=== PATIENT | male | born 1945 | race Caucasian/White ===

== ENCOUNTER 2016-05-24 17:47 | Emergency (ER) | payer MEDICARE, BC, OTHER ==
[2016-05-24] MEDS ORDERED: Ibuprofen TAB* 600 MG PO ONE ×2 (18:15→21:35)
--- NOTE | 2016-05-24 21:09 | RAD ---
HISTORY: Trauma, left knee pain COMPARISONS: None VIEWS: 2, frontal and crosstable lateral views of the left knee FINDINGS: BONE DENSITY: Normal. BONES: There is no displaced fracture. JOINTS: There is moderate tricompartmental osteoarthritis. There is a moderate suprapatellar joint effusion ALIGNMENT: There is no dislocation. SOFT TISSUES: Unremarkable. OTHER FINDINGS: None. IMPRESSION: OSTEOARTHRITIS. JOINT EFFUSION. NO ACUTE OSSEOUS INJURY. IF SYMPTOMS PERSIST, RECOMMEND REPEAT IMAGING.
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
[2016-05-24 21:56] VITALS: BP 142/76
== END 2016-05-24 22:21 | disposition home or self-care (01) ==
LOC: ED 17:47
DX: S80.02XA Contusion of left knee, initial encounter (principal); M25.562 Pain in left knee; M25.462 Effusion, left knee; T14.8 Other injury of unspecified body region; M25.512 Pain in left shoulder; E11.9 Type 2 diabetes mellitus without complications; Z85.828 Personal history of other malignant neoplasm of skin; R21 Rash and other nonspecific skin eruption; V28.4XXA Motorcycle driver injured in noncollision transport accident in traffic accident, initial encounter; Y92.9 Unspecified place or not applicable; M17.12 Unilateral primary osteoarthritis, left knee
CPT/HCPCS: 99282; A9270-GY

== ENCOUNTER 2018-04-03 19:41 | Emergency (ER) | payer MEDICARE, BC ==
--- NOTE | 2018-04-03 20:23 | ED ---
Lower Extremity - HPI Summary HPI Summary: The patient is a 72 y/o M presenting to [facility] with a chief complaint of mild bilateral pedal edema and a rash on his bilateral calves with gradual worsening over the last ten days. He states that he is an active individual who bikes at least 30 minutes a day, and he normally weighs around 195lbs; he noticed over the last week and half that he has gained 15lbs. He noticed that his feet have began to swell, but he hasn't had any change in his diet that would account for the weight gain. He reports that he often eats tuna sandwiches, but this is not new for him. He additionally c/o chills, and he had an episode of nausea a few days ago. He denies headaches, cough, rhinorrhea, SOB, changes in urination (he notes frequent urination but this is normal for him), or changes in BM. He spoke with his PCP who recommended that he come to the ED. He has hx of diabetes and hypercholesterolemia, which are currently being managed with medications. - History of Current Complaint Chief Complaint: EDRashSkinAbscess Stated Complaint: RASH/ LEG SWELLING Time Seen by Provider: 04/03/18 20:04 Hx Obtained From: Patient Mechanism Of Injury: Unknown Onset of Pain: Days - ten Onset/Duration: Days - ten Severity Initially: Mild Severity Currently: Mild Pain Intensity: 0 Pain Scale Used: 0-10 Numeric Timing: Lasting Days Location: Is Discrete @ - bilateral feel and calves Associated Signs And Symptoms: Positive: Swelling, Other - POSITIVE: sudden weight gain of 15lbs, chills; NEGATIVE: headaches, cough, rhinorrhea, SOB, changes in urination, changes in BM Aggravating Factor(s): Nothing Alleviating Factor(s): Nothing Able to Bear Weight: Yes - Allergies/Home Medications Allergies/Adverse Reactions: Allergies Allergy/AdvReac Type Severity Reaction Status Date / Time No Known Allergies Allergy Verified 04/03/18 19:51 PMH/Surg Hx/FS Hx/Imm Hx Endocrine/Hematology History: Reports: Hx Diabetes - METFORMIN Cardiovascular History: Reports: Hx Hypercholesterolemia Sensory History: Reports: Hx Contacts or Glasses - READING Denies: Hx Cataracts, Hx Hearing Aid Opthamlomology History: Reports: Hx Contacts or Glasses - READING Denies: Hx Cataracts Psychiatric History: Reports: Hx Anxiety - NO TREATED - Surgical History Surgery Procedure, Year, and Place: WISDOM TEETH REMOVAL 2010. BASAL SKIN CA REMOVAL 10 YRS AGO Hx Anesthesia Reactions: No Infectious Disease History: No Infectious Disease History: Denies: Traveled Outside the [place] in Last 30 Days - Family History Known Family History: Negative: Cardiac Disease, Hypertension, Diabetes - Social History Alcohol Use: None Substance Use Type: Reports: None Smoking Status (MU): Never Smoked Tobacco Do You Chew or Dip Tobacco: No Review of Systems Positive: Chills. Negative: Fever Negative: Nasal Discharge Negative: Shortness Of Breath, Cough Positive: Nausea, Other - NEGATIVE: loss or change in appetite, changes in BM. Negative: Abdominal Pain, Vomiting Positive: other - NEGATIVE: changes in urination Positive: Edema - bilateral pedal with weight gain of 15lbs Positive: Rash - bilateral calves Negative: Headache All Other Systems Reviewed And Are Negative: Yes Physical Exam - Summary Physical Exam Summary: Appearance: Well-appearing, Well-nourished, lying in bed comfortable Skin: Warm, dry, no obvious rash, signs of chronic fungal infection of the feet without signs of cellulitis Eyes: sclera anicteric, no conjunctival pallor ENT: mucous membranes moist Neck: deferred Respiratory: No signs of respiratory distress Cardiovascular: Appears well perfused, pulses are nml Abdomen: deferred Musculoskeletal: Moving all 4 extremities without obvious discomfort, moderate pitting edema up to the legs Neurological: Awake and alert, mentation is normal, speech is fluent and appropriate Psychiatric: affect is normal, does not appear anxious or depressed Triage Information Reviewed: Yes Vital Signs On Initial Exam: Initial Vitals Temp Pulse Resp BP Pulse Ox 98.7 F 80 16 141/93 98 04/03/18 19:45 04/03/18 19:45 04/03/18 19:45 04/03/18 19:45 04/03/18 19:45 Vital Signs Reviewed: Yes Diagnostics - Vital Signs Vital Signs Temp Pulse Resp BP Pulse Ox 04/03/18 19:45 98.7 F 80 16 141/93 98 - Laboratory Result Diagrams: 04/03/18 20:26 04/03/18 20:26 Lab Statement: Any lab studies that have been ordered have been reviewed, and results considered in the medical decision making process. - EKG 20:27 Cardiac Rate: NL - 75 BPM EKG Rhythm: Sinus Rhythm Summary of EKG Findings: NSR at 75BPM, P waves, QRS complex, and T waves are within normal limits, T waves and intervals are normal, no ischemic changes. This is a normal EKG Re-Evaluation - Re-Evaluation First Eval Re-Evaluation Time: 21:05 Change: Unchanged Comment: I spoke with the patient concerning blood and UA results as well as discharge home and instructions. Lower Extremity Course/Dx - Course Course Of Treatment: The patient is a 72 y/o M presenting to [facility] with a chief complaint of mild bilateral pedal edema and a rash on his bilateral calves with gradual worsening over the last ten days. Despite being active, he has noticed a 15lb weight gain, causing his feet to swell; he hasn't had any change in his diet that would account for the weight gain. He reports the he often consumes tuna, contributing to his salt intake. He additionally c/o chills, and he had an episode of nausea a few days ago. He denies headaches, cough, rhinorrhea, SOB , changes in urination (he notes frequent urination but this is normal for him) , or changes in BM. Hx of diabetes and hypercholesterolemia. Upon physical exam , he has moderate pitting edema up to the legs and signs of chronic fungal infection of the feet but without signs of cellulitis. In the ED course, the patient was given Furosemide. Blood work reveals elevated BUN/creatinine. UA reveals protein, blood, WBC, RBC, hyaline casts, and glucose. EKG is negative. He is diagnosed with peripheral edema and renal insufficiency. He will be discharged home with a prescription for Furosemide, education materials, and follow up with his PCP. He agrees with this plan and understands the need for return to the ED for new or worsening symptoms. - Diagnoses Provider Diagnoses: Peripheral edema, Renal insufficiency Discharge - Sign-Out/Discharge Documenting (check all that apply): Patient Departure - Patient will be discharged home. - Discharge Plan Condition: Good Disposition: HOME Prescriptions: Furosemide TAB* [Lasix TAB*] 20 mg PO DAILY #20 tab Patient Education Materials: Chronic Kidney Disease (ED) Referrals: Tiago Tam MD [Primary Care Provider] - Additional Instructions: The blood test shows that your kidneys are not functioning at full capacity. It is not clear to me if this is related to your swelling or not, but it will need to be followed by your primary care doctor. In the meantime, I have prescribed a water pill which should bring down the swelling over the next few days to a week. - Billing Disposition and Condition Condition: GOOD Disposition: Home - Attestation Statements Document Initiated by Hanna: Yes Documenting Scribe: Rona Velez Provider For Whom Hanna is Documenting (Include Credential): Dr. Matt Marti MD Scribe Attestation: I, Rona Velez scribed for Dr. Matt Marti MD on 04/03/18 at 2154. Scribe Documentation Reviewed: Yes Provider Attestation: The documentation as recorded by the Rona reyez accurately reflects the service I personally performed and the decisions made by me, Dr. Matt Marti MD Status of Hanna Document: Viewed
[2018-04-03 20:35] LABS: ABS Basophils 0.1 10^3/ul (0-0.2); ABS Eosinophils 0.3 10^3/ul (0-0.6); ABS Lymphocytes 1.4 10^3/ul (1.0-4.8); ABS Monocytes 0.7 10^3/ul (0-0.8); ABS Nucleated RBC 0 10^3/ul; Eosinophil % 3.8 %; Hematocrit 44 % (42-52); Hemoglobin 14.6 g/dl (14.0-18.0); Lymphocyte % 18.6 %; Mean Corpuscular HGB Conc 33 g/dl (31-36); Mean Corpuscular Hemoglobin 26 pg (27-31); Mean Corpuscular Volume 79 fL (80-94); Mean Platelet Volume 8.5 fL (7.4-10.4); Nucleated Red Blood Cells % 0; Platelet Count 362 10^3/ul (150-450); Red Blood Count 5.54 10^6/ul (4.00-5.40); Red Cell Distribution Width 16 % (10.5-15); White Blood Count 7.4 10^3/ul (3.5-10.8)
[2018-04-03 20:52] LABS: Albumin 2.1 g/dL (3.2-5.2); Albumin/Globulin Ratio 0.8 (1-3); BUN/Creatinine Ratio 24.7 (8-20); Calcium 7.3 mg/dL (8.6-10.3); EGFR Non-African American 23.6 (>60); Globulin 2.8 g/dL (2-4); Potassium 3.6 mmol/L (3.5-5.0); Total Bilirubin 0.2 mg/dL (0.2-1.0); Total Protein 4.9 g/dL (6.4-8.9)
[2018-04-03 21:07] LABS: Urine Appearance Cloudy; Urine Bacteria Absent (Absent); Urine Bilirubin Negative (Negative); Urine Blood 3+ (Negative); Urine Color Yellow; Urine Glucose 2+(150 mg/dL) (Negative); Urine Ketones Negative (Negative); Urine Nitrite Negative (Negative); Urine Protein 3+(>=500 mg/dL) (Negative); Urine Red Blood Cell 2+(6-10/hpf) (Absent); Urine Specific Gravity 1.025 (1.010-1.030); Urine Urobilinogen Negative (Negative); Urine White Blood Cell 1+(6-10/hpf) (Absent)
[2018-04-03] MEDS ORDERED: Furosemide TAB* 20 MG PO ONE (21:11)
[2018-04-03 21:27] LABS: TSH (Thyroid Stimulating Horm) 4.79 mcIU/mL (0.34-5.60)
[2018-04-03 21:35] VITALS: BP 159/90
== END 2018-04-03 21:20 | disposition home or self-care (01) ==
LOC: ED 19:41
DX: R60.0 Localized edema (principal); N28.9 Disorder of kidney and ureter, unspecified; E11.9 Type 2 diabetes mellitus without complications; Z79.84 Long term (current) use of oral hypoglycemic drugs
CPT/HCPCS: 36415; 80053; 81003; 81015; 84443; 85025; 87086; 93005; 99283; A9270-GY

== ENCOUNTER 2018-04-11 12:02 | Inpatient (IN) | payer MEDICARE, BC, OTHER ==
--- NOTE | 2018-04-11 12:43 | ED ---
HPI Cardiac - HPI Summary HPI Summary: This patient is a 72 year old M presenting to [facility] accompanied by his with a chief complaint of worsening diffuse edema since 2 weeks ago.Patient reports LE edema, abdominal edema, testicular edema, SOB, rapid weight gain, decreased ROM, and anxiety. The patient was here last week and given a diuretic. He is supposed to see a concrete engineer in the next week. His diuretic was increased recently to 40mg once a day. The patient states nothing is helping, please do something stat. He says that he did 10 miles of biking yesterday but had to stop due to SOB. He can usually bike 40 miles. He was advised to reduce his salt intake, which he is attempting to do. Vitals in the room: HR 84 bpm BP 143/86. Home Medications Medication Instructions Recorded Confirmed Type Ibuprofen TAB* [Motrin TAB* 600 MG] 600 mg PO Q6H PRN #15 tab 05/24/16 04/11/18 Rx Aspirin 81 mg CHEW TAB* [Aspirin 81 mg PO DAILY 12/03/17 04/11/18 History Low Dose TAB*] Atorvastatin* [Lipitor*] 40 mg PO DAILY 12/03/17 04/11/18 History Insulin GLARGINE(*) [Lantus(*)] 30 units SUBCUT BEDTIME 12/03/17 04/11/18 History Tamsulosin CAP* [Flomax CAP*] 0.4 mg PO DAILY 12/03/17 04/11/18 History glipiZIDE [Glipizide ER] 5 mg PO DAILY 12/03/17 04/11/18 History Sleeping Pill 1 tab PO BEDTIME PRN 12/10/17 04/11/18 History Furosemide TAB* [Lasix TAB*] 40 mg PO DAILY 04/11/18 04/11/18 History - History of Current Complaint Chief Complaint: EDGeneral Stated Complaint: SHORT OF BREATH, STOMACH BLOATING Time Seen by Provider: 04/11/18 12:19 Hx Obtained From: Patient Onset/Duration: Started Weeks Ago - 2 Timing: Constant Pain Intensity: 0 Associated Signs and Symptoms: Positive: Anxiety, Shortness of Breath, Swelling , Calf Pain/Swelling, Edema - diffuse - Allergy/Home Medications Allergies/Adverse Reactions: Allergies Allergy/AdvReac Type Severity Reaction Status Date / Time No Known Allergies Allergy Verified 04/11/18 12:11 Home Medications: Home Medications Furosemide TAB* [Lasix TAB*] 40 mg PO DAILY 04/11/18 [History Confirmed 04/11/18 ] PMH/Surg Hx/FS Hx/Imm Hx Endocrine/Hematology History: Reports: Hx Diabetes - METFORMIN Cardiovascular History: Reports: Hx Hypercholesterolemia Sensory History: Reports: Hx Contacts or Glasses - READING Denies: Hx Cataracts, Hx Hearing Aid Opthamlomology History: Reports: Hx Contacts or Glasses - READING Denies: Hx Cataracts Psychiatric History: Reports: Hx Anxiety - NO TREATED - Surgical History Surgery Procedure, Year, and Place: WISDOM TEETH REMOVAL 2009. BASAL SKIN CA REMOVAL 10 YRS AGO Hx Anesthesia Reactions: No Infectious Disease History: No Infectious Disease History: Denies: Traveled Outside the [place] in Last 30 Days - Family History Known Family History: Negative: Cardiac Disease, Hypertension, Diabetes - Social History Alcohol Use: None Substance Use Type: Reports: None Smoking Status (MU): Never Smoked Tobacco Review of Systems Positive: Shortness Of Breath Positive: Decreased ROM, Edema - LE, Abd, testicular Positive: Anxious All Other Systems Reviewed And Are Negative: Yes Physical Exam - Summary Physical Exam Summary: VITAL SIGNS: Reviewed. GENERAL: Patient is a well-developed and nourished malewho is lying comfortable in the stretcher. Patient is not in any acute respiratory distress. He is very anxious. HEAD AND FACE: No signs of trauma. No ecchymosis, hematomas or skull depressions. No sinus tenderness. EYES: PERRLA, EOMI x 2, No injected conjunctiva, no nystagmus. EARS: Hearing grossly intact. Ear canals and tympanic membranes are within normal limits. MOUTH: Oropharynx within normal limits. NECK: Supple, trachea is midline, no adenopathy, no JVD, no carotid bruit, no c- spine tenderness, neck with full ROM. CHEST: Symmetric, no tenderness at palpation LUNGS: Clear to auscultation bilaterally. No wheezing or crackles. Decreased breath sounds bilaterally. CVS: Regular rate and rhythm, S1 and S2 present, no murmurs or gallops appreciated. ABDOMEN: Soft, non-tender. Abdominal ascites. No rebound no guarding, and no masses palpated. Bowel sounds are normal. EXTREMITIES: FROM in all major joints, no cyanosis or clubbing. Bilateral lower extremity edema 2+ NEURO: Alert and oriented x 3. No acute neurological deficits. Speech is normal and follows commands. SKIN: Dry and warm GCS: 15 Triage Information Reviewed: Yes Vital Signs On Initial Exam: Initial Vitals Temp Pulse Resp BP Pulse Ox 97.0 F 76 18 144/94 100 04/11/18 12:05 04/11/18 12:05 04/11/18 12:05 04/11/18 12:05 04/11/18 12:05 Vital Signs Reviewed: Yes Diagnostics - Vital Signs Vital Signs Temp Pulse Resp BP Pulse Ox 04/11/18 12:21 76 143/86 95 04/11/18 12:05 97.0 F 76 18 144/94 100 - Laboratory Result Diagrams: 04/11/18 11:57 04/11/18 11:57 Lab Statement: Any lab studies that have been ordered have been reviewed, and results considered in the medical decision making process. - Radiology CXR Radiology Interpretation Completed By: Radiologist Summary of Radiographic Findings: No radiographic evidence for acute cardiopulmonary abnormality on this. portable chest x-ray. ED physician has reviewed this report - EKG 12:25 Cardiac Rate: NL - 72 bpm EKG Rhythm: Sinus Rhythm ST Segment: Normal Disposition - Course Assessment/Plan: This patient is a 72 year old M presenting to [facility] accompanied by his with a chief complaint of worsening diffuse edema since 2 weeks ago.Patient reports LE edema, abdominal edema, testicular edema, SOB, rapid weight gain, decreased ROM, and anxiety. The patient was here last week and given a diuretic. He is supposed to see a concrete engineer in the next week. His diuretic was increased recently to 40mg once a day. The patient states nothing is helping, please do something stat. He says that he did 10 miles of biking yesterday but had to stop due to SOB. He can usually bike 40 miles. He was advised to reduce his salt intake, which he is attempting to do. Vitals in the room: HR 84 bpm BP 143/86. Blood work without any significant abnormality except for BUN of 59 creatinine is 2.65. This is consistent with an acute renal failure. Glucose is 44 therefore the patient was given dextrose IV. Calcium is 7.6 and albumin is 1.9, the corrected calcium is 9.28. Urinalysis shows 3+ protein 3+ blood in WBCs and 2+ blood was also 2+ hyaline casts present granular cast present and RBCs present. Patient was given dextrose since the patient was hypoglycemic. Chest x-ray impression: No radiographic evidence for acute cardiopulmonary normality on this portable chest x-ray. At this point I discussed my physical exam, findings and test results with Dr. Ware from the hospital services, who accepted the patient for admission. - Diagnoses Provider Diagnoses: Acute renal failure, Anasarca, Hypoglycemia - Physician Notifications Discussed Care Of Patient With: Michoacano Ware Time Discussed With Above Provider: 15:09 Instructed by Provider To: Admit As Inpatient Discharge - Sign-Out/Discharge Documenting (check all that apply): Patient Departure - admission - Discharge Plan Condition: Fair Disposition: ADMITTED TO [facility] - Billing Disposition and Condition Condition: FAIR Disposition: Admitted to [facility] - Attestation Statements Document Initiated by Hanna: Yes Documenting Scribe: Chris Dudley Provider For Whom Nicholibe is Documenting (Include Credential): Addison Daly MD Scribe Attestation: I, Chris Dudley, scribed for Addison Daly MD on 04/11/18 at 1854. Scribe Documentation Reviewed: Yes Provider Attestation: The documentation as recorded by the Chris reyez accurately reflects the service I personally performed and the decisions made by me, Addison Daly MD Status of Scribe Document: Viewed
[2018-04-11 12:59] LABS: ABS Basophils 0 10^3/ul (0-0.2); ABS Eosinophils 0.3 10^3/ul (0-0.6); ABS Monocytes 0.6 10^3/ul (0-0.8); ABS Neutrophils 6.5 10^3/ul (1.5-7.7); ABS Nucleated RBC 0 10^3/ul; Hematocrit 44 % (42-52); Hemoglobin 14.5 g/dl (14.0-18.0); Lymphocyte % 12.1 %; Mean Corpuscular HGB Conc 33 g/dl (31-36); Mean Corpuscular Hemoglobin 26 pg (27-31); Mean Corpuscular Volume 80 fL (80-94); Nucleated Red Blood Cells % 0; Platelet Count 403 10^3/ul (150-450); Red Blood Count 5.49 10^6/ul (4.00-5.40); Red Cell Distribution Width 16 % (10.5-15); White Blood Count 8.5 10^3/ul (3.5-10.8)
--- OUTSIDE RECORDS SUMMARY | 2018-04-11 13:06 | XMS REPORT | Continuity of Care Document ---
:1945 External Reference #:[id number] Author Name Tiago Tam M.D. Address [address] [facility] [address] [place] [address] Care Team Providers Name Role Phone HCP given Primary Care Physician Unavailable Payers Type Date Identification Numbers Payment Provider Subscriber Policy Number: [id number] [facility] Lefty Harden PayID: [id number] [address] [place] [address] Policy Number: [id number] [facility] Lefty Harden PayID: [id number] [address] [place] [address] Advance Directives Description No Information Available Problems Date Description Provider Status Onset: 11/10/2011 Pure hypercholesterolemia Tiago Tam M.D. Active Onset: 11/10/2011 Type 2 diabetes mellitus Tiago Tam M.D. Active Onset: 03/18/2013 Type 2 diabetes mellitus Tiago Tam M.D. Active Onset: 05/24/2016 Chronic rhinitis Yung Jose D.O. Active Onset: 04/09/2018 Edema Tiago Tam M.D. Active Onset: 04/09/2018 Proteinuria Tiago Tam M.D. Active Family History Date Family Member(s) Problem(s) Comments Father Heart Disease : (age 60 Father due to [place] smoker Years) Father Hypertension ? Father Hypercholesterolemia ? 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 Lantus 12/26 Active Solution 100Unit/M 15ml inject 30units E11.65 Silcoff, Solostar Pen-Inject L once daily, at Tiago, same time M.D. every day; for blood sugar control Freestyle 09/28 Active Misc 100un use 1-2x/day E11.65 Silli Lancets its for blood Tiago sugar M.D. monitoring Freestyle 09/18 Active Strips 100un use 2x/day as E11.65 Silli Lite Test its directed for Tiago, monitoring M.D. blood sugar Pen Dora 08/28 Active Misc 31G X 8 100un use as E11.65 Silcoff, mm its directed Tiago, (once/day) for M.D. insulin administration Flonase 05/24 Active Suspension 50mcg/Act 47.40 2 sprays twice J31.0 Chloek, Allergy 0ml a day until Yung, Relief better. D.O. Clonazepam 12/24 Active Tablets 0.5mg 60tab 1/2-1 by mouth F41.9 Silco s 3x/day as Tiago, needed for M.D. anxiety Glipizide ER 05/21 Active Tablets ER 5mg 180ta take 1 tablet E11.65 Silco 24HR bs by mouth Tiago, 2x/day to M.D. lower blood sugar Tamsulosin 02/07 Active Capsules 0.4mg daily CAS Fonseca MD Marion Cartagena 28G 09/20 Active 100un Use as Silcoff, Lancets its Directed 1-2 Tiago, Times A Day M.DMeaghan For Monitoring Blood Sugar Glucometer 10/19 Active 1unit use as E11.65 Silcorafal, s directed Cha Ordoñez Atorvastatin 06/02 Active Tablets 40mg 90tab 1 by mouth Anel, Calcium s every day for high Cha Ordoñez cholesterol (to replace crestor) Aspirin Ec 04/[address] 81mg 1 po qd for Silcorafal, /2008 heart disease carey Ordoñez M.D. Furosemide 04/04 Hx Tablets 20mg 20tab 1 tablet by R60.1 Unknown s mouth daily - 04/09 Ondansetron 03/29 Hx Tablets 4mg 10tab 1 by mouth R11.0 Silcorafal, HCL s every 4 hours Tiago - as needed for M.DMeaghan 04/08 nausea Farxiga 03/05 Hx Tablets 5mg 90tab 1 tab by mouth E11.65 Silcorafal, s every day for Tiago, - blood sugar M.D. 04/06 control E11.21 E11.65 Tradjenta 02/24/2018 - Hx Tablets 5mg 90tabs 1 by mouth E11.65 Silcorafal, 03/05/2018 every day for Cha Ordoñez blood sugar control E11.21 E11.65 Amoxicillin/Clavulanate 01/09/2018 Hx Tablets 875-125mg 20tabs 1 tab L03.313 Anel Potassium - by Tiago 01/19/2018 mouth M.D. twice a day x10 days Lantus Solostar 12/09/2017 Hx Solution 100Unit/ML 15ml inject E11.65 Silcoff, - Pen-Inje 26unit Tiago, 12/26/2017 ct s once M.D. daily, at same time every day; for blood sugar contro l Lantus Solostar 11/24/2017 Hx Solution 100Unit/ML inject E11.65 Silcoff, - Pen-Inje 20unit Tiago, 12/09/2017 ct s once M.D. daily, at same time every day; for blood sugar contro l Lantus Solostar 09/11/2017 Hx Solution 100Unit/ML 15ml inject E11.65 Silcoff, - Pen-Inje 16unit Tiago, 11/24/2017 ct s once M.D. daily, at same time every day; for blood sugar contro nancy Napierostar 09/09/2017 Hx Solution 100Unit/ML inject E11.65 Silcoff, - Pen-Inje 15unit Tiago, 09/11/2017 ct s once M.D. daily, at same time every day; for blood sugar contro nancy Napierostar 08/28/2017 Hx Solution 100Unit/ML 15ml inject E11.65 Silcoff, - Pen-Inje 10unit Tiago, 09/09/2017 ct s once M.D. daily, at same time every day; for blood sugar contro l Shingrix 07/29/2017 Hx Suspensi 50mcg 2units admini Silcoff, - on Rec ster 2 Tiago, 08/28/2017 doses M.D. as direct ed, per cdc guidel soila Ibuprofen 07/22/2016 Hx Tablets 800mg 90tabs 1 cap M25.512 Sopchak, - by Yung, 08/21/2016 mouth D.O. three times a day Azelastine HCL (Nasal) 05/24/2016 Hx Solution 0.15% 30ml instil J31.0 Sopchak, - l one Yung, 09/28/2017 spray D.O. every 12 hours as needed for nasal draina ge Saline Nasal [place] 05/24/2016 Hx Solution 0.65% 132ml Use 5 J31.0 Sopchak, - times Yung, 09/28/2017 a day D.O. as needed for nasal conges tant. Hydrocodone 05/24/2016 Hx Suer 10-8mg/5ML 118ml take 5 R05 Sopchak, Polistirex/Chlorpheniram - millil Yung, william Polistirex 06/03/2016 iters D.O. by mouth every 12 hours as needed for cough Escitalopram Oxalate 04/21/2016 Hx Tablets 10mg 30tabs 1/2 by F41.9 Silcoff, - mouth Tiago, 10/13/2016 every M.D. day for 1 week then 1 tablet daily; for mood Bydureon 02/21/2016 Hx Pen 2mg 4units inject E11.65 Marysecoff, - 2mg Tiago, 08/28/2017 once M.D. weekly as direct ed for blood sugar contro l Bydureon 10/16/2015 Hx Pen 2mg 12units inject E11.65 Silcoff, - 2mg Tiago, 12/11/2015 once M.D. weekly as direct ed for blood sugar contro l Pen Dora 10/16/2015 Hx Misc 31G X 5 mm 25units use as E11.65 Silcoff , - direct Tiago, 08/28/2017 ed for M.D. admini strati on of Bydure on Neomycin/Polymyxin/[place] 09/21/2015 Hx Suspensi 3.5-81492- 10ml 4-5 H60.8x1 Rigoberto cortisone (Otic) - on 1 drops A. 10/01/2015 in [facility], right M.D. ear qid x 7days Metformin HCL ER 05/20/2015 Hx Tablets 500mg 270tabs 2 by E11.65 Anel, - ER 24HR mouth Tiago, 02/24/2018 every M.D. mornin g and 1 every evenin g; for blood sugar contro l E11.21 E11.65 Glipizide ER 02/14/2015 - Hx Tablets ER 5mg 90tabs take 1 E11.65 Silcoff, 05/21/2015 24HR tablet by shey Ordoñez every M.D. morning to lower blood sugar Metformin HCL 02/14/2015 - Hx Tablets ER 500mg 360tabs take four .65 Silcoff, ER 05/20/2015 24HR tablets by shey Ordoñez every M.D. evening; may split to 2 pills 2x/day if preferred E11.21 E11.65 Metformin HCL 06/16/2014 - Hx Tablets ER 500mg 360tabs take 3 E11.65 Silcoff, ER 02/14/2015 24HR tablets by shey Ordoñez every M.D. evening for 1 week then increase it to 4 pills/day E11.21 E11.65 Metformin 02/14/2014 - Hx Tablets ER 500mg 270tabs take 1 tablet 250.02 Silcoff, HCL ER 06/16/2014 24HR every morning Tiago, and 2 every M.D. evening (alternatively may take all 3 at once in the evening); for blood sugar 250.00 250.42 Metformin HCL 10/26/2013 - Hx Tablets ER 500mg 2 by mouth 250.02 Silcoff, ER 02/14/2014 24HR every Cha Ordoñez evening; for blood sugar control 250.00 250.42 Lancets 10/19/2013 - Hx Misc 100units use as E11.65 Silcoff, 09/28/2017 directed Tiago (1-2x/day) Cha for monitoring blood sugar Glucometer 10/19/2013 - Hx 100units use 2x/day, E11.65 Silcoff, Test Strips 09/18/2017 before Tiago, breakfast and M.D. before supper Metformin HCL 10/19/2013 - Hx Tablets ER 500 take 3 250.02 Silcoff, ER 10/26/2013 24HR mg tablets by Tiago, mouth every M.D. evening 250.00 250.42 Clonazepam 10/05/2013 - Hx Tablets 0.5mg 15tabs 1/2-1 by mouth F41.9 Silcoff, 12/24/2015 three times a Cha Ordoñez day as needed for anxiety Ramipril 03/18/2013 - Hx Capsules 2.5mg 90caps take 1 capsule E11.21 Silcoff, 12/03/2017 every morning Cha Ordoñez for kidney protection Benzonatate 09/06/2012 - Hx Capsules 100mg 30caps 1-2 by mouth 786.2 Silcoff, 11/14/2012 three times a Cha Ordoñez day as needed for cough 486 Levofloxacin 09/01/2012 - Hx Tablets 750mg 10tabs 1 by mouth 486 Silcoff, 09/11/2012 every day Tiago for M.D. pneumonia Metformin HCL ER 05/31/2012 - Hx Tablets ER 500mg 180tabs 2 by mouth 250.02 Silcoff, 10/19/2013 24HR every Tiago, evening, to M.D. lower your blood sugar 250.00 250.42 Crestor 11/10/2011 - Hx Tablets 10mg 90tabs take 1 tablet 272.0 Silcoff , 06/02/2012 by mouth Tiago, daily for M.D. high cholesterol Amoxicillin 08/30/2011 - Hx Capsules 500mg 40caps 2 tab po bid 461.8 Silcoff, 09/10/2011 x 10 days Cha Ordoñez Guaifenesin/Co 08/30/2011 - Hx Solution 100-10 100ml 1-2 tsps q4-6 786.2 Silcoff, deine 09/10/2011 mg/5ML hrs, prn Cha Ordoñez Simvastatin 12/13/2010 - Hx Tablets 40mg 90tabs take 1 tablet 272.0 Silcoff, 11/10/2011 by mouth Tiago every evening M.DMeaghan for high cholesterol Omeprazole 04/24/2008 - Hx Capsules DR 20mg 30caps 1 po qd for 530.81 Silcoff, 05/24/2008 acid reflux Cha Ordoñez Lamictal 09/30/2005 - Hx Tablets 25mg 2 PO qd Unknown 05/27/2006 Zocor 05/05/2005 - Hx Tablets 40mg 90tabs 1 po qd for 272.0 Silcoff, 09/13/2010 becca Walsh M.D. Paxil 09/27/2004 - Hx Tablets 40mg 1.5 po qd Unknown 05/27/2006 Aspirin 09/27/2004 - Hx Tablets 81 1 PO qd For 272.0 Silcoff, 04/24/2008 Heart Disease Carey Ordoñez M.D. Sporanox 11/10/2003 - Hx Capsules 100mg 112caps 2 po bid for 110.1 Silcoff, 03/09/2004 the first 7 osmin Ordoñez of every M.DMeaghan month for 4 cycles Clonazepam 03/06/2003 - Hx Tablets 0.5mg 1 po hs Silcoff, 05/27/2006 Cha Ordoñez Benztropine - Hx Tablets 2mg 1 po qd Unknown 04/19/2003 Paxil - Hx Tablets 40mg 1 and a 1/2 Unknown 09/27/2004 po qd Geodon - Hx Capsules 40mg 1 po bid Unknown 04/19/2003 [facility] - Hx Capsules 300mg 1 po tid Unknown Carbonate 05/27/2006 Lipitor - Hx Tablets 20mg 90tabs 1 po qd with Silcoff, 05/05/2005 supper for high Cha Ordoñez cholesterol Immunizations CPT Code Status Date Vaccine Lot # 18768 Given 01/20/2018 Influenza Vaccine, Inactivated, Subunit, [id number] Adjuvanted, For Intrmus 69787 Given 04/20/2017 Influenza Virus Vaccine, Quadrivalent, Split, [id number] Preservative Free 87265 Given 04/21/2016 Influenza Virus Vaccine, Quadrivalent, Split, [id number] Preservative Free 30266 Given 11/23/2015 Adacel or Boostrix, TDaP [id number] 89588 Given 10/16/2015 Prevnar 13 [id number] 11424 Given 02/14/2015 Influenza Vaccine Split Virus Preservative Free Im [id number] Use 01325 Given 02/14/2014 Flu, Split Virus 3Yrs [id number] 66062 Given 03/18/2013 Flu, Split Virus 3Yrs [id number] 07734 Given 11/10/2011 Pneumococcal Immunization [id number] Refused 08/28/2017 Shingrix Zoster (Shingles) Vaccine (HZV) Recomb,Subnit,Adjuvanted [id number] Refused 10/16/2015 Adacel or Boostrix, TDaP [id number] Refused 11/13/2014 Prevnar 13 [id number] Refused 04/24/2008 Zostavax [id number] Refused 04/24/2008 Adacel or Boostrix, TDaP Vital Signs Date Vital Result Comment 04/09/2018 4:45pm BP Systolic 144 mmHg BP Diastolic 94 mmHg Respiratory Rate 14 /min not laboured Weight 243.00 lb 04/08/2018 3:25pm BP Systolic 136 mmHg BP Diastolic 84 mmHg Weight 241.00 lb 04/07/2018 9:33am BP Systolic 140 mmHg BP Diastolic 88 mmHg Height 70 inches 5'10" Weight 236.00 lb BMI (Body Mass Index) 33.9 kg/m2 02/24/2018 11:54am BP Systolic 134 mmHg BP Diastolic 72 mmHg BP Systolic Recheck 130 mmHg R arm sitting BP Diastolic Recheck 80 mmHg R arm sitting Weight 190.00 lb per pt 01/20/2018 4:59pm BP Systolic 130 mmHg BP Diastolic 80 mmHg 01/19/2018 4:36pm Weight 193.00 lb 01/16/2018 9:47am BP Systolic 130 mmHg BP Diastolic 82 mmHg Body Temperature 97.7 F Weight 193.00 lb per pt 01/09/2018 10:49am BP Systolic 140 mmHg BP Diastolic 88 mmHg BP Systolic Recheck 132 mmHg electronic BP Diastolic Recheck 82 mmHg electronic Heart Rate 92 /min Weight 192.00 lb 11/24/2017 10:11am BP Systolic 128 mmHg BP Diastolic 82 mmHg Weight 194.00 lb 09/28/2017 9:27am BP Systolic 122 mmHg BP Diastolic 80 mmHg Weight 194.00 lb 08/28/2017 4:21pm BP Systolic 112 mmHg BP Diastolic 80 mmHg Heart Rate 66 /min Height 69 inches 5'9" per pt Weight 196.00 lb per pt BMI (Body Mass Index) 28.9 kg/m2 04/20/2017 12:21pm BP Systolic 142 mmHg 142/86 taken again per pt request BP Diastolic 84 mmHg 142/86 taken again per pt request Weight 194.00 lb per pt 10/14/2016 9:12am BP Systolic 120 mmHg BP Diastolic 80 mmHg Weight 188.00 lb 08/16/2016 11:17am BP Systolic 128 mmHg BP Diastolic 76 mmHg 07/22/2016 3:20pm BP Systolic 128 mmHg BP Diastolic 82 mmHg Weight 189.00 lb at home this am 05/24/2016 11:27am BP Systolic 112 mmHg BP Diastolic 76 mmHg Body Temperature 98.2 F 04/21/2016 9:52am BP Systolic 110 mmHg BP Diastolic 80 mmHg Height 69.5 inches 5'9.50" Weight 196.00 lb BMI (Body Mass Index) 28.5 kg/m2 12/25/2015 5:41pm BP Systolic 128 mmHg BP Diastolic 74 mmHg Weight 193.00 lb per pt 12/11/2015 2:50pm BP Systolic 126 mmHg BP Diastolic 76 mmHg Weight 192.00 lb per pt 11/23/2015 2:22pm Body Temperature 97.8 F 10/17/2015 3:05pm BP Systolic 120 mmHg BP Diastolic 82 mmHg 10/16/2015 8:43am BP Systolic 125 mmHg BP Diastolic 82 mmHg Weight 196.00 lb per pt 09/21/2015 9:13am BP Systolic 124 mmHg BP Diastolic 80 mmHg Height 69 inches 5'9" Weight 198.00 lb BMI (Body Mass Index) 29.2 kg/m2 05/21/2015 11:04am BP Systolic 120 mmHg BP Diastolic 80 mmHg Weight 200.00 lb 02/14/2015 9:44am BP Systolic 100 mmHg BP Diastolic 78 mmHg Weight 197.00 lb 11/13/2014 4:01pm BP Systolic 112 mmHg BP Diastolic 70 mmHg Heart Rate 72 /min reg Respiratory Rate 12 /min not laboured Height 68.25 inches 5'8.25" Weight 193.00 lb BMI (Body Mass Index) 29.1 kg/m2 06/16/2014 4:09pm BP Systolic 124 mmHg BP Diastolic 76 mmHg Height 69.25 inches 5'9.25" Weight 196.00 lb BMI (Body Mass Index) 28.7 kg/m2 02/14/2014 10:17am BP Systolic 116 mmHg BP Diastolic 88 mmHg Weight 195.00 lb heavy pants on 12/12/2013 3:39pm BP Systolic 123 mmHg k BP Diastolic 76 mmHg k Heart Rate 70 /min Weight 187.00 lb shoes on 11/28/2013 9:49am BP Systolic 132 mmHg BP Diastolic 70 mmHg Heart Rate 88 /min Weight 186.00 lb shoes on 11/02/2013 11:42am BP Systolic 139 mmHg BP Diastolic 71 mmHg Heart Rate 82 /min 10/26/2013 4:40pm BP Systolic 120 mmHg R arm sitting BP Diastolic 80 mmHg R arm sitting BP Systolic Recheck 128 mmHg L arm sitting BP Diastolic Recheck 80 mmHg L arm sitting Weight 194.00 lb w/shoes 10/19/2013 1:07pm BP Systolic 124 mmHg BP Diastolic 82 mmHg Heart Rate 72 /min reg Respiratory Rate 14 /min not laboured Height 69 inches 5'9" Weight 193.00 lb BMI (Body Mass Index) 28.5 kg/m2 10/05/2013 2:51pm BP Systolic 140 mmHg BP Diastolic 90 mmHg Weight 192.00 lb 10/04/2013 10:29am BP Systolic 128 mmHg BP Diastolic 80 mmHg 03/18/2013 4:57pm BP Systolic 138 mmHg BP Diastolic 90 mmHg BP Systolic Recheck 130 mmHg R arm sitting BP Diastolic Recheck 86 mmHg R arm sitting Weight 195.00 lb pt weighed himself 11/18/2012 3:32pm BP Systolic 132 mmHg BP Diastolic 80 mmHg 11/15/2012 2:28pm BP Systolic 130 mmHg BP Diastolic 82 mmHg BP Systolic Recheck 136 mmHg R arm lying BP Diastolic Recheck 92 mmHg R arm lying Heart Rate 84 /min reg; repeat 68 Height 68.25 inches 5'8.25" Weight 197.00 lb BMI (Body Mass Index) 29.7 kg/m2 09/08/2012 5:10pm BP Systolic 120 mmHg BP Diastolic 82 mmHg Heart Rate 78 /min reg Body Temperature 98.4 F Weight 196.00 lb 09/01/2012 5:02pm BP Systolic 120 mmHg BP Diastolic 82 mmHg Heart Rate 108 /min reg Respiratory Rate 12 /min not laboured Body Temperature 99.7 F Weight 198.00 lb 05/31/2012 5:51pm BP Systolic 137 mmHg BP Diastolic 83 mmHg Heart Rate 93 /min Weight 194.00 lb 11/10/2011 10:05am BP Systolic 122 mmHg BP Diastolic 78 mmHg Height 69 inches per pt Weight 193.00 lb per pt BMI (Body Mass Index) 28.5 kg/m2 08/30/2011 10:11am BP Systolic 129 mmHg BP Diastolic 78 mmHg Heart Rate 75 /min Body Temperature 98.2 F Height 69 inches 5'9" Weight 192.00 lb BMI (Body Mass Index) 28.4 kg/m2 12/13/2010 3:12pm BP Systolic 112 mmHg BP Diastolic 80 mmHg Weight 190.50 lb 09/09/2010 9:25am BP Systolic 120 mmHg BP Diastolic 90 mmHg Heart Rate 68 /min reg Respiratory Rate 12 /min not laboured Body Temperature 98.5 F Weight 194.00 lb Last Menstrual Period 0 03/27/2010 4:17pm BP Systolic 132 mmHg BP Diastolic 82 mmHg BP Systolic Recheck 130 mmHg R arm sitting BP Diastolic Recheck 84 mmHg R arm sitting Weight 197.00 lb 11/26/2009 4:14pm BP Systolic 110 mmHg BP Diastolic 80 mmHg Height 69 inches 5'9" Weight 192.00 lb BMI (Body Mass Index) 28.4 kg/m2 07/25/2009 9:39am BP Systolic 126 mmHg BP Diastolic 82 mmHg Weight 195.50 lb 12/12/2008 1:11pm BP Systolic 110 mmHg BP Diastolic 76 mmHg Weight 198.00 lb Last Menstrual Period 0 07/18/2008 9:56am BP Systolic 114 mmHg BP Diastolic 76 mmHg Height 70 inches 5'10" Weight 203.00 lb BMI (Body Mass Index) 29.1 kg/m2 04/24/2008 2:20pm BP Systolic 118 mmHg BP Diastolic 80 mmHg Height 69 inches 5'9" Weight 199.00 lb BMI (Body Mass Index) 29.4 kg/m2 Last Menstrual Period 0 03/16/2007 4:47pm BP Systolic 120 mmHg BP Diastolic 84 mmHg Body Temperature 98.2 F Height 69 inches 5'9" Weight 205.00 lb BMI (Body Mass Index) 30.3 kg/m2 05/27/2006 9:49am BP Systolic 120 mmHg BP Diastolic 84 mmHg Height 69 inches 5'9" Weight 201.00 lb BMI (Body Mass Index) 29.7 kg/m2 09/30/2005 10:52am BP Systolic 110 mmHg BP Diastolic 86 mmHg Height 69 inches 5'9" Weight 201.00 lb BMI (Body Mass Index) 29.7 kg/m2 09/27/2004 1:10pm Height 69 inches 5'9" Weight 202.00 lb BMI (Body Mass Index) 29.8 kg/m2 04/22/2004 2:05pm BP Systolic 124 mmHg BP Diastolic 90 mmHg Heart Rate 76 /min reg Respiratory Rate 12 /min Weight 201.00 lb 11/10/2003 9:32am BP Systolic 100 mmHg r arm sitting BP Diastolic 60 mmHg r arm sitting Weight 190.00 lb 07/19/2003 4:00pm BP Systolic 118 mmHg R Arm BP Diastolic 80 mmHg R Arm Height 69 inches 5'9" Weight 179.00 lb BMI (Body Mass Index) 26.4 kg/m2 05/29/2003 4:36pm BP Systolic 120 mmHg BP Diastolic 82 mmHg Heart Rate 78 /min Weight 175.00 lb 04/19/2003 4:40pm BP Systolic 130 mmHg R Arm BP Diastolic 90 mmHg R Arm Weight 163.00 lb 03/28/2003 1:38pm BP Systolic 120 mmHg BP Diastolic 80 mmHg Weight 165.00 lb Shoes On 03/06/2003 4:45pm BP Systolic 138 mmHg R arm sitting BP Diastolic 88 mmHg R arm sitting Heart Rate 72 /min reg Respiratory Rate 12 /min easy Weight 166.00 lb Results Test Date Facility Test Result H/L Range Note Total Protein 04/09/2018 [facility] Urine TP 2994 mg/dL 24HR Urine [phone] Concentration Urine Total Protein/24HR 00884 mg/24Hr High 0-165 Urine Collection Time 24 hr Urine Total Volume 925 mL Basic Metabolic Panel 04/07/2018 [facility] Sodium 143 mmol/L N 135- 145 [phone] Potassium 4.1 mmol/L N 3.5-5.0 Chloride 110 mmol/L N 101-111 Co2 Carbon Dioxide 27 mmol/L N 22-32 Anion Gap 6 mmol/L N 2-11 Glucose 60 mg/dL Low 70-100 Blood Urea Nitrogen 50 mg/dL High 6-24 Creatinine 2.55 mg/dL High 0.67-1.17 BUN/Creatinine Ratio 19.6 N 8-20 Calcium 7.4 mg/dL Low 8.6-10.3 Egfr Non- 24.9 >60 Egfr 30.1 >60 1 Urine Culture And 04/03/2018 [facility] Urine Culture SEE RESULT 2 Sensitivities [phone] BELOW Laboratory test 04/03/2018 [facility] TSH (Thyroid 4.79 mcIU/mL N 0.34-5. finding [phone] Stim Horm) 60 CBC Auto Diff 04/03/2018 [facility] White Blood 7.4 10^3/uL N 3.5- 10. [phone] Count 8 Red Blood Count 5.54 10^6/uL High 4.00-5.40 Hemoglobin 14.6 g/dL N 14.0-18.0 Hematocrit 44 % N 42-52 Mean Corpuscular Volume 79 fL Low 80-94 Mean Corpuscular Hemoglobin 26 pg Low 27-31 Mean Corpuscular HGB Conc 33 g/dL N 31-36 Red Cell Distribution Width 16 % High 10.5-15 Platelet Count 362 10^3/uL N 150-450 Mean Platelet Volume 8.5 fL N 7.4-10.4 Abs Neutrophils 5.0 10^3/uL N 1.5-7.7 Abs Lymphocytes 1.4 10^3/uL N 1.0-4.8 Abs Monocytes 0.7 10^3/uL N 0-0.8 Abs Eosinophils 0.3 10^3/uL N 0-0.6 Abs Basophils 0.1 10^3/uL N 0-0.2 Abs Nucleated RBC 0 10^3/uL Granulocyte % 67.7 % Lymphocyte % 18.6 % Monocyte % 9.1 % Eosinophil % 3.8 % Basophil % 0.8 % Nucleated Red Blood Cells % 0 Comp Metabolic Panel 04/03/2018 [facility] Sodium 138 mmol/L N 135- 145 [phone] Potassium 3.6 mmol/L N 3.5-5.0 Chloride 106 mmol/L N 101-111 Co2 Carbon Dioxide 27 mmol/L N 22-32 Anion Gap 5 mmol/L N 2-11 Glucose 187 mg/dL High 70-100 Blood Urea Nitrogen 66 mg/dL High 6-24 Creatinine 2.67 mg/dL High 0.67-1.17 BUN/Creatinine Ratio 24.7 High 8-20 Calcium 7.3 mg/dL Low 8.6-10.3 Total Protein 4.9 g/dL Low 6.4-8.9 Albumin 2.1 g/dL Low 3.2-5.2 Globulin 2.8 g/dL N 2-4 Albumin/Globulin Ratio 0.8 Low 1-3 Total Bilirubin 0.20 mg/dL N 0.2-1.0 Alkaline Phosphatase 75 U/L N 34-104 Alt 27 U/L N 7-52 Ast 43 U/L High 13-39 Egfr Non- 23.6 >60 Egfr 28.5 >60 3 Urinalysis Profile 04/03/2018 [facility] Urine Color Yellow [phone] Urine Appearance Cloudy Urine Specific [place] 1.025 N 1.010-1.030 Urine pH 5.0 N 5-9 Urine Urobilinogen Negative Negative Urine Ketones Negative Negative Urine Protein 3+(>=500 mg/dL) Abnormal Negative Urine Leukocytes Negative Negative Urine Blood 3+ Abnormal Negative Urine Nitrite Negative Negative Urine Bilirubin Negative Negative Urine Glucose 2+(150 mg/dL) Abnormal Negative Urine White Blood Cell 1+(6-10/hpf) Abnormal Absent Urine Red Blood Cell 2+(6-10/hpf) Abnormal Absent Urine Bacteria Absent Absent Urine Squamous Epithelial Cell Present Abnormal Absent Urine Hyaline Casts Present Abnormal Absent Laboratory test 02/24/2018 In House Hemoglobin A1c 7.9 finding Laboratory test 12/10/2017 [facility] Surgical Pathology SEE RESULT 4 finding [phone] BELOW Laboratory test 11/24/2017 In House Hemoglobin A1c 8.0 finding Laboratory test 09/28/2017 [facility] Fructosamine 279 mcmol/L 200 - 285 5 finding [phone] Vitamin B12 752 pg/mL N 180-914 6 Methylmalonic Acid Mma 0.13 nmol/mL <=0.40 7 Laboratory test 08/28/2017 In House Hemoglobin A1c 8.1 finding Laboratory test 04/20/2017 [facility] PSA Screening 0.815 ng/mL 0- 4.0 8 finding [phone] Laboratory test 04/20/2017 [facility] Vitamin B12 262 pg/mL N 180- 914 9 finding [phone] Laboratory test 04/20/2017 In House Hemoglobin A1c 8.5 finding Laboratory test 04/14/2017 [facility] Alt (SGPT) 19 U/L N 7-52 finding [phone] Lipid Profile 04/14/2017 [facility] Triglycerides 97 mg/dL 10 (Trig/Chol/HDL) [phone] Cholesterol 122 mg/dL 11 HDL Cholesterol 30.5 mg/dL 12 LDL Cholesterol 72 mg/dL 13 Urine Microalbumin 04/14/2017 [facility] Ur Microalbumin 60.3 mg/L Random [phone] (mg/L) Urine Creatinine 125.15 mg/dL Urine Microalbumin/Creatinine 48.1 ug/mg High <31 Laboratory test 10/14/2016 In House Hemoglobin A1c 7.2 finding Laboratory test 04/21/2016 [facility] Alt (SGPT) 18 U/L N 7-52 14, 15 finding [phone] Lipid Profile 04/21/2016 [facility] Triglycerides 68 mg/dL N 16 (Trig/Chol/HDL) [phone] Cholesterol 111 mg/dL N 17 HDL Cholesterol 29.5 mg/dL N 18 LDL Cholesterol 68 mg/dL N 19 Basic Metabolic Panel 04/21/2016 [facility] Sodium 138 mmol/L N 133- 145 [phone] Potassium 4.4 mmol/L N 3.5-5.0 Chloride 106 mmol/L N 101-111 Co2 Carbon Dioxide 28 mmol/L N 22-32 Anion Gap 4 mmol/L N 2-11 Glucose 134 mg/dL High 70-100 Blood Urea Nitrogen 18 mg/dL N 6-24 Creatinine 1.09 mg/dL N 0.67-1.17 BUN/Creatinine Ratio 16.5 N 8-20 Calcium 9.3 mg/dL N 8.6-10.3 Egfr Non- 66.7 N >60 Egfr 85.8 N >60 20 Urine Microalbumin 04/21/2016 [facility] Urine Creatinine 197.10 mg/dL N Random [phone] Ur Microalbumin (mg/L) 35.5 mg/L N Urine Microalbumin/Creatinine 18.0 ug/mg N <31 Laboratory test 04/21/2016 In House Hemoglobin A1c 7.6 finding Laboratory test 12/12/2015 [facility] Surgical Pathology SEE RESULT 21, 22 finding [phone] BELOW Laboratory test 10/17/2015 [facility] Surgical Pathology SEE RESULT 23, 24 finding [phone] BELOW Laboratory test 10/16/2015 In House Hemoglobin A1c 7.2 finding Laboratory test 05/21/2015 [facility] PSA Screening 0.803 ng/mL N 0- 4.0 25 finding [phone] Laboratory test 05/21/2015 In House Hemoglobin A1c 7.8 finding Urine Microalbumin 05/21/2015 [facility] Ur Microalbumin 41.0 mg/L N Random [phone] (mg/L) Urine Creatinine 148.81 mg/dL N Urine Microalbumin/Creatinine 27.5 ug/mg N <31 Laboratory test 02/14/2015 In House Hemoglobin A1c 8.8 finding Laboratory test 12/12/2014 [facility] Surgical SEE RESULT 26 finding [phone] Pathology BELOW Laboratory test 11/16/2014 [facility] Ferritin 42.3 ng/mL N 24-336 finding [phone] Liver Function 11/16/2014 [facility] Total Protein 6.6 g/dL N 6.4- 8.9 Panel [phone] Albumin 4.3 g/dL N 3.2-5.2 Globulin 2.3 g/dL N 2-4 Albumin/Globulin Ratio 1.9 N 1-3 Total Bilirubin 0.60 mg/dL N 0.2-1.0 Direct Bilirubin 0.10 mg/dL N 0.03-0.18 Indirect Bilirubin 0.5 mg/dL N 0.3-1.0 Alkaline Phosphatase 56 U/L N 34-104 Alt 20 U/L N 7-52 Ast 17 U/L N 13-39 CBC Auto Diff 11/16/2014 [facility] White Blood Count 6.7 10^3/uL N 4.8-10.8 [phone] Red Blood Count 5.20 10^6/uL N 4.0-5.4 Hemoglobin 14.0 g/dL N 14.0-18.0 Hematocrit 43 % N 42-52 Mean Corpuscular Volume 83 fL N 80-94 Mean Corpuscular Hemoglobin 27 pg N 27-31 Mean Corpuscular HGB Conc 33 g/dL N 31-36 Red Cell Distribution Width 15 % N 10.5-15 Platelet Count 226 10^3/uL N 150-450 Mean Platelet Volume 9 um3 N 7.4-10.4 Abs Neutrophils 4.3 10^3/uL N 1.5-7.7 Abs Lymphocytes 1.6 10^3/uL N 1.0-4.8 Abs Monocytes 0.6 10^3/uL N 0-0.8 Abs Eosinophils 0.2 10^3/uL N 0-0.6 Abs Basophils 0 10^3/uL N 0-0.2 Abs Nucleated RBC 0.01 10^3/uL N Granulocyte % 63.7 % N 38-83 Lymphocyte % 24.3 % Low 25-47 Monocyte % 8.8 % N 1-9 Eosinophil % 2.6 % N 0-6 Basophil % 0.6 % N 0-2 Nucleated Red Blood Cells % 0.2 N Laboratory test finding 11/13/2014 [facility] Alt (SGPT) 17 U/L N 7- 52 [phone] Lipid Profile 11/13/2014 [facility] Triglycerides 116 mg/dL N 27 (Trig/Chol/HDL) [phone] Cholesterol 137 mg/dL N 28 HDL Cholesterol 29.9 mg/dL N 29 LDL Cholesterol 84 mg/dL N 30 Basic Metabolic Panel 11/13/2014 [facility] Sodium 138 mmol/L N 133- 145 [phone] Potassium 4.1 mmol/L N 3.5-5.0 Chloride 106 mmol/L N 101-111 Co2 Carbon Dioxide 27 mmol/L N 22-32 Anion Gap 5 mmol/L N 2-11 Glucose 128 mg/dL High 70-100 Blood Urea Nitrogen 20 mg/dL N 6-24 Creatinine 0.98 mg/dL N 0.67-1.17 BUN/Creatinine Ratio 20.4 High 8-20 Calcium 9.4 mg/dL N 8.6-10.3 Egfr Non- 75.6 N >60 Egfr 97.2 N >60 31 Laboratory test 11/13/2014 In House Hemoglobin A1c 8.6 finding Laboratory test 06/16/2014 In House Hemoglobin A1c 8.9 finding Urine Microalbumin 02/14/2014 [facility] Ur Microalbumin 29.0 mg/L N Random [phone] (mg/L) Urine Creatinine 154.78 mg/dL N Urine Microalbumin/Creatinine 18.7 N Less Than 31 Lipid Profile 02/14/2014 [facility] Triglycerides 100 mg/dL N 32 (Trig/Chol/HDL) [phone] Cholesterol 129 mg/dL N 33 HDL Cholesterol 32.4 mg/dL N 34 LDL Cholesterol 77 mg/dL N 35 Laboratory test finding 02/14/2014 In House Hemoglobin A1c 7.6 Urine Micro Inhouse 12/12/2013 In House Ua WBC - Ua RBC 1-2 Ua Casts - Ua Epi - Ua Other - Ua Glucose - Ua Bilirubin - Ua Ketones - Ua Specific [place] 1.020 Ua Blood mod Ua PH 6.0 Ua Protein tr Ua Urobilinogen - Ua Nitrite - Ua Leukocytes - Urinalysis Profile 11/21/2013 [facility] Urine Color Yellow N [phone] Urine Appearance Clear N Urine Specific [place] 1.017 N 1.010-1.030 Urine pH 5.0 N 5-9 Urine Urobilinogen Negative N Negative Urine Ketones Negative N Negative Urine Protein Negative N Negative Urine Leukocytes Negative N Negative Urine Blood 1+ Abnormal Negative Urine Nitrite Negative N Negative Urine Bilirubin Negative N Negative Urine Glucose Negative N Negative Urine White Blood Cell Trace N Absent Urine Red Blood Cell Trace N Absent Urine Bacteria Absent N Absent Laboratory test 10/19/2013 In House Glucose Quantitative 199 finding CBC Auto Diff 10/04/2013 [facility] White Blood Count 6.3 N 4.8-10. [phone] 10^3/uL 8 Red Blood Count 5.22 10^6/uL N 4.0-5.4 Hemoglobin 14.3 g/dL N 14.0-18.0 Hematocrit 42 % N 42-52 Mean Corpuscular Volume 80 fL N 80-94 Mean Corpuscular Hemoglobin 27 pg N 27-31 Mean Corpuscular HGB Conc 34 g/dL N 31-36 Red Cell Distribution Width 14 % N 10.5-15 Platelet Count 245 10^3/uL N 150-450 Mean Platelet Volume 8 um3 N 7.4-10.4 Abs Neutrophils 4.1 10^3/uL N 1.5-7.7 Abs Lymphocytes 1.5 10^3/uL N 1.0-4.8 Abs Monocytes 0.5 10^3/uL N 0-0.8 Abs Eosinophils 0.2 10^3/uL N 0-0.6 Abs Basophils 0 10^3/uL N 0-0.2 Abs Nucleated RBC 0 10^3/uL N Granulocyte % 65.4 % N 38-83 Lymphocyte % 23.3 % Low 25-47 Monocyte % 8.3 % N 1-9 Eosinophil % 2.5 % N 0-6 Basophil % 0.5 % N 0-2 Nucleated Red Blood Cells % 0 N Comp Metabolic Panel 10/04/2013 [facility] Sodium 140 mmol/L N 133- 145 [phone] Potassium 4.3 mmol/L N 3.7-5.6 Chloride 107 mmol/L N 101-111 Co2 Carbon Dioxide 27 mmol/L N 22-32 Anion Gap 6 mmol/L N 2-11 Glucose 151 mg/dL High 70-100 Blood Urea Nitrogen 24 mg/dL N 6-24 Creatinine 1.12 mg/dL N 0.67-1.17 BUN/Creatinine Ratio 21.4 High 8-20 Calcium 9.3 mg/dL N 8.6-10.3 Total Protein 6.5 g/dL N 6.4-8.9 Albumin 4.2 g/dL N 3.2-5.2 Globulin 2.3 g/dL N 2-4 Albumin/Globulin Ratio 1.8 N 1-3 Total Bilirubin 0.60 mg/dL N 0.2-1.0 Alkaline Phosphatase 55 U/L N 34-104 Alt 21 U/L N 7-52 Ast 18 U/L N 13-39 Egfr Non- 65.0 N >60 Egfr 83.6 N >60 36 Liver Function 10/04/2013 [facility] Direct Bilirubin 0.10 mg/dL N 0.03-0.18 Panel [phone] Indirect Bilirubin 0.5 mg/dL N 0.3-1.0 Laboratory 10/04/2013 [facility] Carcinoembryonic 7.1 ng/mL High 0.1- 5.0 37 test finding [phone] Antigen Hemoglobin A1c 9.1 % High Less than 6.0 38 Surgical Pathology 09/28/2013 [facility] S RUN DATE: 39 [phone] 10/03/ <SEE NOTE> Laboratory test 03/18/2013 In House Hemoglobin A1c 8.0 finding Occult 11/18/2012 In House Misc neg x3 Blood,Triple Basic Metabolic 11/16/2012 [facility] Sodium 138 mmol/L 133-145 Panel [phone] Potassium 4.3 mmol/L 3.5-5.0 Chloride 105 mmol/L 101-111 Co2 Carbon Dioxide 28.0 mmol/L 22-32 Anion Gap 5.0 mmol/L 2-11 Glucose 141 mg/dL High 70-100 Blood Urea Nitrogen 21 mg/dL 6-24 Creatinine 1.00 mg/dL 0.50-1.40 BUN/Creatinine Ratio 21.0 High 8-20 Calcium 9.3 mg/dL 8.1-9.9 Egfr Non- 74.3 >60 Egfr 95.6 >60 40 Lipid Profile 11/16/2012 [facility] Triglycerides 74 mg/dL 40-200 (Trig/Chol/HDL) [phone] Cholesterol 153 mg/dL Less than 200 HDL Cholesterol 32 mg/dL Low 40-60 41 Cholesterol/HDL Ratio 4.8 Average High 1-4.44 LDL Cholesterol 106.2 High Less Than 100 42 Laboratory test 11/16/2012 [facility] PSA Screening 0.9 ng/mL 0-4.0 43 finding [phone] Laboratory test 11/16/2012 [facility] Alt 23 U/L 14-54 44 finding [phone] CBC With Manual 11/16/2012 [facility] White Blood 6.4 10^3/uL 4.8- 10.8 Diff [phone] Count Red Blood Count 5.07 10^6/uL 4.0-5.4 Hemoglobin 13.0 g/dL Low 14.0-18.0 Hematocrit 41 % Low 42-52 Mean Corpuscular Volume 82 fL 80-94 Mean Corpuscular Hemoglobin 26 pg Low 27-31 Mean Corpuscular HGB Conc 32 g/dL 31-36 Red Cell Distribution Width 15 % 10.5-15 Platelet Count 249 10^3/uL 150-450 Mean Platelet Volume 9 um3 7.4-10.4 Abs Neutrophils 4.5 10^3/uL 1.5-7.7 Abs Lymphocytes 1.1 10^3/uL 1.0-4.8 Abs Monocytes 0.6 10^3/uL 0-0.8 Abs Eosinophils 0.1 10^3/uL 0-0.6 Abs Basophils 0.2 10^3/uL 0-0.2 Abs Nucleated RBC 0 10^3/uL Neutrophil % 65 % 38-83 Lymphocytes % 23 % Low 25-47 Monocytes % 7 % 0-13 Eosinophils % 4 % 0-6 Reactive Lymph % 1 % 0-6 Hypochromasia 1+ Darline Cells 2+ Laboratory test 11/15/2012 In House Hemoglobin A1c 7.6 finding Urine Microalbumin 11/15/2012 [facility] Ur Microalbumin 86.0 mg/L 45 Random [phone] (mg/L) Urine Creatinine 233.4 mg/dL Urine Microalbumin/Creatinine 36.8 High Less Than 31 Laboratory test finding 05/31/2012 In House Hemoglobin A1c 7.3 Laboratory test finding 05/26/2012 [facility] Alt 26 U/L 14-54 [phone] Lipid Profile 05/26/2012 [facility] Triglycerides 113 mg/dL 40-200 (Trig/Chol/HDL) [phone] Cholesterol 153 mg/dL Less than 200 HDL Cholesterol 34 mg/dL Low 40-60 46 Cholesterol/HDL Ratio 4.5 Average High 1-4.44 LDL Cholesterol 96.4 mg/dL Less Than 100 47 Laboratory test finding 11/10/2011 [facility] Alt (SGPT) 18 U/L 17- 63 [phone] Lipid Profile 11/10/2011 [facility] Triglyceride 127 mg/dL 40-200 (Trig/Chol/HDL) [phone] Cholesterol 200 mg/dL Less Than 200 48 High Density Lipoprotein 29 mg/dL Low 40-60 49 Cholesterol/HDL Ratio 6.90 AVERAGE High 1-4.97 Low Density Lipoprotein 146 mg/dL High Less Than 100 50 Urine Microalbumin 11/10/2011 [facility] Microalbumin (MG/L) 45.0 mg/L Random [phone] Urine Creatinine 134.4 mg/dL Tesfaye Alb/Creatinine Ratio 33.5 UG/MG High Less Than 30 51 Laboratory test 11/10/2011 In House Hemoglobin A1c 6.7 finding Laboratory test 12/13/2010 In House Hemoglobin A1c 6.8 finding Laboratory test 09/09/2010 [facility] Erythrocyte Sed Rate 4 MM/HR 0 -40 finding [phone] CPK (Creatine Kinase) 233 U/L High 0-200 C Reactive Protein < 0.5 mg/dL Less Than 0.5 Vitamin D, 25 09/09/2010 [facility] 25-Hydroxy Vitamin D2 <4.0 ng/mL () Hydroxy [phone] 25-Hydroxy Vitamin D3 28 ng/mL () 25-Hydroxy Vitamin D Total 28 ng/mL () 52 CBC Auto Diff 09/09/2010 [facility] White Blood Count 6.4 CUMM 4.8- 10.8 [phone] Red Cell Count 5.12 CUMM 4.6-6.2 Hemoglobin 13.9 g/dL Low 14.0-18.0 Hematocrit 42 % 42-52 Mean Corpuscular Volume 83 um3 80-94 Mean Corpuscular Hemoglob 27 pg 27-31 Mean Corpuscular HGB Cone 33 g/dL 32-36 Redcell Distribution WDTH 14 % 10.5-15 Platelet Count 214 CUMM 150-450 Mean Platelet Volume 8.7 um3 7.4-10.4 Gran % 63.2 % 38-83 Lymph % 25.3 % 25-47 Mononuclear % 8.8 % 1-9 Eosinophil % 2.4 % 0-6 Basophil % 0.3 % 0-2 Abs Lymphs 1.6 1.0-4.8 Abs Mononuclear 0.6 0-0.8 Absolute Neutrophil Count 4.0 1.5-7.7 Abs Eosinophils 0.1 0-0.6 Abs Basophils 0 0-0.2 Laboratory test 09/09/2010 [facility] TSH 1.81 MIU/ML 0.34-5.60 finding [phone] Lyme Western Blot 09/09/2010 [facility] Lyme Igg Negative Negative Specialty [phone] Western Blot Lyme Igg Bands Detected No bands detecte <SEE NOTE> kDa () 53 Lyme Igm Western Blot Negative Negative Lyme Igm Bands Detected No bands detecte <SEE NOTE> kDa () 54 Lyme Disease Interpretation . () 55 Laboratory test finding 03/27/2010 In House Hemoglobin A1c 6.8 Laboratory test finding 11/26/2009 [facility] PSA Screening 0.78 NG/ML 0-4 56 [phone] Glucose 55 mg/dL Low 70-100 57 Urine Microalbumin 11/26/2009 [facility] Microalbumin (MG/L) 38.0 mg/L Random [phone] Urine Creatinine 125.48 mg/dL Tesfaye Alb/Creatinine Ratio 30.2 UG/MG Less Than 30 58 Laboratory test finding 11/26/2009 [facility] Alt (SGPT) 23 U/L 17- 65 [phone] Hemoglobin A1c 7.1 % High Less Than 6.0 59 Lipid Profile 11/26/2009 [facility] Triglyceride 102 mg/dL 40-200 (Trig/Chol/HDL) [phone] Cholesterol 167 mg/dL Less Than 200 60 High Density Lipoprotein 27 mg/dL Low 40-60 61 Cholesterol/HDL Ratio 6.19 AVERAGE High 1-4.97 Low Density Lipoprotein 120 mg/dL High Less Than 100 62 Lipid Profile 07/25/2009 [facility] Triglyceride 66 mg/dL 40-200 (Trig/Chol/HDL) [phone] Cholesterol 175 mg/dL Less Than 200 63 High Density Lipoprotein 27 mg/dL Low 40-60 64 Cholesterol/HDL Ratio 6.48 AVERAGE High 1-4.97 Low Density Lipoprotein 135 mg/dL High Less Than 100 65 Laboratory test finding 07/25/2009 [facility] Alt (SGPT) 17 U/L 17- 63 [phone] Glucose 117 mg/dL High 70-100 66 Hemoglobin A1c 6.9 % High Less Than 6.0 67 Laboratory test 12/13/2008 [facility] Hemoglobin A1c 7.0 % High Less Than 68, 69 finding [phone] 6.0 Glucose 109 mg/dL High 70-100 70 Lipid Profile 07/17/2008 [facility] Triglyceride 114 mg/dL 40-200 (Trig/Chol/HDL) [phone] Cholesterol 161 mg/dL Less Than 200 71 High Density Lipoprotein 29 mg/dL Low 40-60 72 Cholesterol/HDL Ratio 5.55 AVERAGE High 1-4.97 Low Density Lipoprotein 109 mg/dL High Less Than 100 73 Liver Function Panel 07/17/2008 [facility] Total Protein 7.0 GM/DL 6.2-8.2 [phone] Albumin 4.0 GM/DL 3.2-5.2 Globulin 3.0 GM/DL 2-4 Albumin/Globulin Ratio 1.3 1-3 Bilirubin Total 0.9 mg/dL 0.4-1.5 Bilirubin Direct 0.2 mg/dL 0.1-0.5 Indirect Bilirubin 0.7 mg/dL 0.1-0.75 Alkaline Phosphatase 64 U/L 39-117 Alt (SGPT) 32 U/L 17-63 Ast (Sgot) 29 U/L 12-42 Basic Metabolic Panel 07/17/2008 [facility] Sodium 139 mmol/L 135- 145 [phone] Potassium 3.6 mmol/L 3.5-5.0 Chloride 106 mmol/L 101-111 Co2 (Carbon Dioxide) 28.0 mmol/L 22-32 Anion Gap 5.0 mmol/L 2-11 74 Glucose 133 mg/dL High 70-100 75 BUN 22 mg/dL 6-24 Creatinine 1.11 mg/dL 0.50-1.40 One Over Creatinine 0.90 BUN/Creatinine Ratio 19.8 8-20 Calcium 9.5 mg/dL 8.1-9.9 76 Laboratory test 07/17/2008 [facility] Hemoglobin A1c 7.2 % High <6.0 77 finding [phone] Lipid Profile 04/24/2008 [facility] Triglyceride 118 mg/dL 40-200 (Trig/Chol/HDL) [phone] Cholesterol 236 mg/dL High Less Than 200 78 High Density Lipoprotein 31 mg/dL Low 40-60 79 Cholesterol/HDL Ratio 7.61 AVERAGE High 1-4.97 Low Density Lipoprotein 181 mg/dL High Less Than 100 80 Liver Function Panel 04/24/2008 [facility] Total Protein 5.8 GM/DL Low 6.2-8.0 [phone] Albumin 3.7 GM/DL 3.2-5.2 Globulin 2.1 GM/DL 2-4 Albumin/Globulin Ratio 1.8 1-3 Bilirubin Total 0.7 mg/dL 0.4-1.5 Bilirubin Direct < 0.1 mg/dL Low 0.1-0.5 Indirect Bilirubin (SEE NOTE) mg/dL 0.1-0.75 81 Alkaline Phosphatase 63 U/L 39-117 Alt (SGPT) 22 U/L 17-63 Ast (Sgot) 20 U/L 12-42 Laboratory test 04/24/2008 [facility] PSA Screening 0.67 NG/ML 0-4 finding [phone] Lipid Profile 05/27/2006 [facility] Cholesterol/HDL 6.00 AVERAGE High 1-4.97 (Trig/Chol/HDL) [phone] Ratio Cholesterol 180 mg/dL Less Than 200 82 Triglyceride 136 mg/dL 40-200 High Density Lipoprotein 30 mg/dL Low 40-60 83 Low Density Lipoprotein 123 mg/dL High Less Than 100 84 Laboratory test 05/27/2006 [facility] Alt (SGPT) 28 U/L 17-23 finding [phone] [facility] Cholesterol/HD 5.39 AVERAGE High 1-4.97 (Trig/Chol/HDL) [phone] L Ratio Cholesterol 167 mg/dL Less Than 200 85 Triglyceride 152 mg/dL 40-200 High Density Lipoprotein 31 mg/dL Low 40-60 86 Low Density Lipoprotein 106 mg/dL High Less Than 100 87 Laboratory test finding 2005 [facility] Alt (SGPT) 20 U/L 17- 04 [phone] PSA Screening 0.81 NG/ML 0.00-4.00 88 Laboratory test 09/27/2004 [facility] TSH 1.64 MIU/ML 0.34-5.60 finding [phone] Basic Metabolic Panel 09/27/2004 [facility] Anion Gap 7.0 mmol/L 2- 11 89 [phone] BUN 16 mg/dL 6-24 Calcium 9.6 mg/dL 8.7-10.2 Chloride 106 mmol/L 101-111 Co2 (Carbon Dioxide) 28.0 mmol/L 22-32 Creatinine 1.1 mg/dL 0.5-1.4 Glucose 97 mg/dL 70-105 Potassium 4.6 mmol/L 3.5-5.0 Sodium 141 mmol/L 135-145 BUN/Creatinine Ratio 14.5 8-20 Laboratory test 09/27/2004 [facility] [place] 0.8 mmol/L 0.5-1.5 finding [phone] Thyroxine Free 09/27/2004 [facility] Free Thyroxine 0.55 ng/dL Low 0.58-1.64 [phone] Laboratory test 09/27/2004 [facility] Alt (SGPT) 21 U/L 17-66 finding [phone] Lipid Profile 09/27/2004 [facility] Cholesterol/HD 5.61 AVERAGE High 1-4.97 (Trig/Chol/HDL) [phone] L Ratio Cholesterol 174 mg/dL Less Than 200 90 Triglyceride 113 mg/dL 40-200 High Density Lipoprotein 31 mg/dL Low 40-60 91 Low Density Lipoprotein 120 mg/dL High Less Than 100 92 Lipid Profile 04/22/2004 [facility] Cholesterol/HDL 4.91 1-4.97 (Trig/Chol/HDL) [phone] Ratio AVERAGE Cholesterol 172 mg/dL Less Than 200 93 Triglyceride 109 mg/dL 40-200 High Density Lipoprotein 35 mg/dL Low 40-60 94 Low Density Lipoprotein 115 mg/dL High Less Than 100 95 Laboratory test finding 04/22/2004 [facility] Alt (SGPT) 26 U/L 17 63 [phone] PSA Screening 0.5 NG/ML 0-4 96 Liver Function Panel 11/17/2003 [facility] Albumin/Globulin Ratio 1.6 1-3 [phone] Albumin 3.9 GM/DL 3.6-5.4 Alkaline Phosphatase 55 U/L 39-117 Alt (SGPT) 16 U/L Low 17-63 Ast (Sgot) 19 U/L 12-42 Bilirubin Direct < 0.1 mg/dL Low 0.1-0.5 Globulin 2.4 GM/DL 2-4 97 Bilirubin Total 0.7 mg/dL 0.4-1.5 Total Protein 6.3 GM/DL 6.2-8.1 1 Because ethnic data is not always readily available, this report includes an eGFR for both -Americans and non- Americans. The National Kidney Disease Education Program (NKDEP) does not endorse the use of the MDRD equation for patients that are not between the ages of 18 and 70, are , have extremes of body size, muscle mass, or nutritional status, or are non- or non-. According to the National Kidney Foundation, irrespective of diagnosis, the stage of the disease is based on the level of kidney function: Stage Description GFR(mL/min/1.73 m(2)) 1 Kidney damage with normal or decreased GFR 90 2 Kidney damage with mild decrease in GFR 60-89 3 Moderate decrease in GFR 30-59 4 Severe decrease in GFR 15-29 5 Kidney failure <15 (or dialysis) 2 SEE RESULT BELOW Name: LEFTY HARDEN : [address]: Matt Marti MD Acct: [id number] Unit: [id number] AGE: 72 Location: ED Re04/03/18 SEX: M Status: DEP ER SPEC: [id number] ROSCOE: 04/03/18 [facility] DR: Matt Marti MD REQ: [id number] RECD: 04/03/18 STATUS: LUDWIG AIKEN DR: Tiago Tam MD _ SOURCE: URINE SPDESC: ORDERED: Urine Culture Procedure Result Reported Site Urine Culture Final 04/05/18- 0946 ML No Growth (<1,000 CFU/mL) * ML - Main Lab . END OF REPORT DEPARTMENT OF PATHOLOGY, [address] [place] [address] Miguel A Pino M.D. Director [facility] # [id number] 3 Because ethnic data is not always readily available, this report includes an eGFR for both -Americans and non- Americans. The National Kidney Disease Education Program (NKDEP) does not endorse the use of the MDRD equation for patients that are not between the ages of 18 and 70, are , have extremes of body size, muscle mass, or nutritional status, or are non- or non-. According to the National Kidney Foundation, irrespective of diagnosis, the stage of the disease is based on the level of kidney function: Stage Description GFR(mL/min/1.73 m(2)) 1 Kidney damage with normal or decreased GFR 90 2 Kidney damage with mild decrease in GFR 60-89 3 Moderate decrease in GFR 30-59 4 Severe decrease in GFR 15-29 5 Kidney failure <15 (or dialysis) 4 SEE RESULT BELOW Name: JUAN JOSE HARDENDemian Dye : [address]: Romeo Chavarria DO Acct: [id number] Unit: [id number] AGE: 72 Location: ENDO Re12/10/17 SEX: M Status: REG REF SPEC: [id number] ROSCOE: 12/10/17- SUBM DR: Romeo Chavarria DO REQ: [id number] RECD: 12/10/17 STATUS: LAN AIKEN DR: Tiago Tam MD _ ORDERED: LEVEL 4/2 FINAL DIAGNOSIS 1. Colon, ascending, biopsy: -- Hyperplastic polyp. 2. Colon, transverse, biopsy: -- Tubular adenoma. -- No high grade dysplasia or malignancy. POST-OPERATIVE DIAGNOSIS Colonoscopy: complete to terminal ileum, fair prep, but decent visualization ; (2) colon polyps ? cold snare; (1) ascending 0.4 cm; 91) transverse 0.3 cm GROSS DESCRIPTION 1. The specimen is received in formalin labeled, Ascending Colon Polyp, and consists of a 0.7 x 0.3 x 0.1 cm aggregate of caruso-white irregular soft tissue fragments which is submitted entirely in one cassette. 2. The specimen is received in formalin labeled, Biopsy Transverse Colon Polyp, and consists of a 1.0 x 0.2 by up to 0.2 cm caruso-pink irregular to polypoid soft tissue fragment which is submitted entirely in one cassette. Signed by and Reported on: Miguel A Pino MD 10/21 1242 END OF REPORT DEPARTMENT OF PATHOLOGY, [address] [place] [address] Miguel A Pino M.D. Director [facility] # [id number] 5 Test Performed by: [place] [id number] Normal Range 180 to 914 Indeterminate Range 145 to 180 Deficient Range <145 7 ADDITIONAL INFORMATION This test was developed and its performance characteristics determined by [facility] in a manner consistent with CLIA requirements. This test has not been cleared or approved by the U.S. Food and Drug Administration. Test Performed by: [address] [id number] 8 Serum levels of PSA measured using the Roxanne [employer] DXI Hybritech immunoassay should not be interpreted as absolute evidence of the presence or absence of disease. The PSA value should be used in conjunction with other pertinent clinical diagnostic procedures. The values obtained with different assay methods or kits cannot be used interchangeably. 9 Normal Range 180 to 914 Indeterminate Range 145 to 180 Deficient Range <145 10 Desirable: <150 Borderline High: 150-199 High: 200-499 Very High: >500 11 Desirable: <200 Borderline High: 200-239 High: >239 12 Low: <40 Desirable: 40-60 High: >60 13 Desirable: <100 Near Optimal: 100-129 Borderline High: 130-159 High: 160-189 Very High: >189 14 FASTING 12 HOUR 15 FASTING 12 HOUR 16 Desirable <150 Borderline high 150-199 High 200-499 Very High >500 17 Desirable <200 Borderline high 200-239 High >239 18 Low <40 Desirable: 40-60 High: >60 19 Desirable: <100 mg/dL Near Optimal: 100-129 mg/dL Borderline High: 130-159 mg/dL High: 160-189 mg/dL Very High: >189 mg/dL 20 Because ethnic data is not always readily available, this report includes an eGFR for both -Americans and non- Americans. The National Kidney Disease Education Program (NKDEP) does not endorse the use of the MDRD equation for patients that are not between the ages of 18 and 70, are , have extremes of body size, muscle mass, or nutritional status, or are non- or non-. According to the National Kidney Foundation, irrespective of diagnosis, the stage of the disease is based on the level of kidney function: Stage Description GFR(mL/min/1.73 m(2)) 1 Kidney damage with normal or decreased GFR 90 2 Kidney damage with mild decrease in GFR 60-89 3 Moderate decrease in GFR 30-59 4 Severe decrease in GFR 15-29 5 Kidney failure <15 (or dialysis) 21 [id number] 22 SEE RESULT BELOW Name: JUAN JOSE HARDENH : [address]: Tiago Tam MD Acct: [id number] Unit: [id number] AGE: 70 Location: [facility] Re12/12/15 SEX: M Status: REG REF SPEC: [id number] ROSCOE: 12/12/15-1019 [facility] DR: Tiago Tam MD REQ: [id number] RECD: 12/12/15-4017 STATUS: SOUT _ ORDERED: LEVEL IV COMMENTS: [id number] FINAL DIAGNOSIS Skin, right mid forearm, excision: -- Scar, completely excised. -- No evidence of residual squamous cell carcinoma. COMMENT: The previous lesion at this site ([id number]) has been completely excised. CLINICAL HISTORY Presents for excision of previously biopsied squamous cell carcinoma on right forearm PRE-OPERATIVE DIAGNOSIS Squamous cell carcinoma; tie at ulnar side 9 o'clock from aspect of the wrist joint GROSS DESCRIPTION The specimen is received in formalin labeled, Right Mid Forearm Complete Excision, and consists of a 2.4 x 0.8 cm caruso, wrinkled, hairbearing skin ellipse excised to a depth of 0.3 cm. There is a suture attached to one long axis, which as per the accompanying requisition designates the ulnar side, 9:00 from aspect of the wrist joint; the suture is designated 9:00. The specimen is inked as follows: 6:00 half black, 12:00 half blue and 9:00 tip-green, serially sectioned from 9:00 to 3:00 and entirely submitted in cassettes A through C to include ellipse ends in cassette A. Signed (signature on file) Brenda Ruelas MD 12/20 1004 END OF REPORT * ML=Testing performed at Main Lab DEPARTMENT OF PATHOLOGY, [address] [place] [address] Miguel A Pino M.D. Director [facility] # [id number] 23 [id number] SEE RESULT BELOW Name: LEFTY HARDEN : [address]: Tiago Tam MD Acct: [id number] Unit: [id number] AGE: 70 Location: [facility] Re10/17/15 SEX: M Status: REG REF SPEC: [id number] ROSCOE: 10/17/15-3 [facility] DR: Tiago Tam MD REQ: [id number] RECD: 10/18/15-1255 STATUS: SOUT _ ORDERED: LEVEL IV COMMENTS: [id number] FINAL DIAGNOSIS Skin, right forearm, biopsy: -- Invasive squamous cell carcinoma, well-differentiated. -- Lesional cells extend to the biopsy base. PRE-OPERATIVE DIAGNOSIS Neoplasm of uncertain behavior of skin D48.5 GROSS DESCRIPTION The specimen is received in formalin labeled, Skin-Right Forearm, and consists of a 0.8 x 0.6 cm mottled caruso irregular hairbearing skin shave with a central 0.2 x 0.2 cm caruso crusted focus. The specimen is inked, trisected and submitted entirely in one cassette. Signed (signature on file) Brenda Ruelas MD 1253 END OF REPORT * ML=Testing performed at Main Lab DEPARTMENT OF PATHOLOGY, [address] [place] [address] Miguel A Pino M.D. Director [facility] # [id number] 25 Serum levels of PSA measured using the [employer] DXI Hybritech immunoassay should not be interpreted as absolute evidence of the presence or absence of disease. The PSA value should be used in conjunction with other pertinent clinical diagnostic procedures. The values obtained with different assay methods or kits cannot be used interchangeably. 26 SEE RESULT BELOW Name: LEFTY HARDEN : [address]: Constantin Hernandez MD Acct: [id number] Unit: [id number] AGE: 69 Location: ENDO Re12/12/14 SEX: M Status: REG REF SPEC: [id number] ROSCOE: 12/12/14- SUBM DR: Constantin Hernandez MD REQ: [id number] RECD: 12/12/14-1449 STATUS: LAN AIKEN DR: Tiago Tam MD _ ORDERED: LEVEL IV/2 FINAL DIAGNOSIS 1. Colon, hepatic flexure, biopsy: -- Tubular adenoma. -- No high grade dysplasia or malignancy. 2. Colon, mid right, biopsy: -- Tubular adenoma. -- No high grade dysplasia or malignancy. CLINICAL HISTORY Screening colonoscopy for follow-up of cecal polyp POST-OPERATIVE DIAGNOSIS Screening colonoscopy to cecum - long T loop, 2-3+ diverticulosis right, 2+ diverticulosis left; 2 lesions. Diverticulosis, polyps GROSS DESCRIPTION 1. The specimen is received in formalin labeled, Hepatic Flexure Polyp, and consists of a 1.0 x 0.4 x 0.2 cm caruso polypoid soft tissue fragment, which is inked, trisected and submitted entirely in one cassette. 2. The specimen is received in formalin labeled, Mid Right Colon Polyp, and consists of a 0.5 x 0.4 x 0.2 cm caruso irregular to polypoid soft tissue fragment, which is inked, bisected and submitted entirely in one cassette. Signed (signature on file) Brenda Ruelas MD 01/18 1051 END OF REPORT * ML=Testing performed at Main Lab DEPARTMENT OF PATHOLOGY, [address] [place] [address] Miguel A Pino M.D. Director [facility] # [id number] 27 Desirable <150 Borderline high 150-199 High 200-499 Very High >500 28 Desirable <200 Borderline high 200-239 High >239 29 Low <40 Desirable: 40-60 High: >60 30 Desirable: <100 mg/dL Near Optimal: 100-129 mg/dL Borderline High: 130-159 mg/dL High: 160-189 mg/dL Very High: >189 mg/dL 31 Because ethnic data is not always readily available, this report includes an eGFR for both -Americans and non- Americans. The National Kidney Disease Education Program (NKDEP) does not endorse the use of the MDRD equation for patients that are not between the ages of 18 and 70, are , have extremes of body size, muscle mass, or nutritional status, or are non- or non-. According to the National Kidney Foundation, irrespective of diagnosis, the stage of the disease is based on the level of kidney function: Stage Description GFR(mL/min/1.73 m(2)) 1 Kidney damage with normal or decreased GFR 90 2 Kidney damage with mild decrease in GFR 60-89 3 Moderate decrease in GFR 30-59 4 Severe decrease in GFR 15-29 5 Kidney failure <15 (or dialysis) 32 Desirable <150 Borderline high 150-199 High 200-499 Very High >500 33 Desirable <200 Borderline high 200-239 High >239 34 Low <40 Desirable: 40-60 High: >60 35 Desirable <100 Near Optimal 100-129 Borderline high 130-159 High 160-189 Very High >189 36 Because ethnic data is not always readily available, this report includes an eGFR for both -Americans and non- Americans. The National Kidney Disease Education Program (NKDEP) does not endorse the use of the MDRD equation for patients that are not between the ages of 18 and 70, are , have extremes of body size, muscle mass, or nutritional status, or are non- or non-. According to the National Kidney Foundation, irrespective of diagnosis, the stage of the disease is based on the level of kidney function: Stage Description GFR(mL/min/1.73 m(2)) 1 Kidney damage with normal or decreased GFR 90 2 Kidney damage with mild decrease in GFR 60-89 3 Moderate decrease in GFR 30-59 4 Severe decrease in GFR 15-29 5 Kidney failure <15 (or dialysis) 37 Nonsmokers: < 2.9 ng/mL Some smokers may have elevated CEA, usually <5.0 ng/mL. Serum markers are not specific for malignancy, and values may vary by method. The testing method is an immunoenzymatic assay speech communication professor by [employer] performed on [employer] DXI 600. Do not interpret serum CEA levels as absolute evidence of the presence or the absence of malignant disease. Use serum CEA in conjunction with information from the clinical evaluation of the patient and other diagnostic procedures. 38 Therapeutic target for the treatment of diabetes Mellitus patients is <7% HBA1C, and in selective patients <6.0%.Please refer to [place] [employer] Association Diabetic care guidelines for further information. 39 RUN DATE: 10/03/13 [facility] LAB LIVE PAGE 1 RUN TIME: [address] [place] [address] Specimen Inquiry Name: LEFTY HARDEN : [address]: Constantin Hernandez MD Acct: [id number] Unit: [id number] AGE: 68 Location: [facility] Re09/28/13 SEX: M Status: REG REF SPEC: [id number] ROSCOE: 09/28/13- SUBM DR: Constantin Hernandez MD REQ: [id number] RECD: 09/28/13 STATUS: LAN AIKEN DR: Tiago Tam MD _ ORDERED: LEVEL IV/3 Dr. Pino has reviewed this case and concurs. Addendum Signed (signature on file) Miguel A Pino MD 1519 FINAL DIAGNOSIS 1. Colon, cecum, biopsy : High grade dysplasia; see comment. 2. Colon, ileocecal valve, biopsy: A. Tubular adenoma. B. No high grade dysplasia or malignancy. 3. Colon, mid sigmoid, biopsy: A. Tubular adenoma. B. No high grade dysplasia or malignancy. COMMENT: Histologic sections from the cecal cap mass show colonic mucosa with abundant dysplastic appearing crypt architecture. In some areas high grade dysplasia is appreciated. Diagnostic evidence of invasive carcinoma is not identified in the sampled tissue; however, only mucosa is present for evaluation. Correlation with endoscopic findings is suggested and complete excision of this lesion is recommended. CONTINUED ON NEXT PAGE * ML=Testing performed at Main Lab DEPARTMENT OF PATHOLOGY, [address] [place] [address] Miguel A Pino M.D. Director [facility] # [id number] RUN DATE: 10/03/13 [facility] LAB LIVE PAGE 2 RUN TIME: [address] [place] [address] Specimen Inquiry Patient: LEFTY HARDEN [id number] (Continued) CLINICAL HISTORY (Continued) CLINICAL HISTORY Screening colonoscopy for follow-up exam POST-OPERATIVE DIAGNOSIS Screening colonoscopy to cecum, very floppy left, prep fair - at base of cecum sessile mass, biopsied 5x. Cecal mass - await biopsy, polyps - await biopsy GROSS DESCRIPTION 1. The specimen is received in formalin labeled Lefty Fina, Biopsy Cecal Cap Mass, and consists of a 1.0 x 0.7 x 0.3 cm. aggregate of multiple caruso, irregular soft tissue fragments. Submitted entirely, one cassette. 2. The specimen is received in formalin labeled Lefty Harden, Ileocecal Cap Nodule, and consists of a 0.7 x 0.7 x 0.2 cm. aggregate of multiple caruso, irregular soft tissue fragments. Submitted entirely, one cassette. 3. The specimen is received in formalin labeled Lefty Harden, Mid Sigmoid Nodule, and consists of two caruso, irregular to polypoid soft tissue fragments averaging 0.4 x 0.3 x 0.3 cm. Submitted entirely, one cassette. Signed (signature on file) Brenda Ruelas MD 1448 END OF REPORT * ML=Testing performed at Main Lab DEPARTMENT OF PATHOLOGY, [address] [place] [address] Miguel A Pino M.D. Director [facility] # [id number] 40 Because ethnic data is not always readily available, this report includes an eGFR for both -Americans and non- Americans. The National Kidney Disease Education Program (NKDEP) does not endorse the use of the MDRD equation for patients that are not between the ages of 18 and 70, are , have extremes of body size, muscle mass, or nutritional status, or are non- or non-. According to the National Kidney Foundation, irrespective of diagnosis, the stage of the disease is based on the level of kidney function: Stage Description GFR(mL/min/1.73 m(2)) 1 Kidney damage with normal or decreased GFR 90 2 Kidney damage with mild decrease in GFR 60-89 3 Moderate decrease in GFR 30-59 4 Severe decrease in GFR 15-29 5 Kidney failure <15 (or dialysis) 41 HDL Interpretation: Undesirable: High Risk: Less than 40 mg/dL Desirable: Low Risk: Greater than 60 mg/dL 42 LDL Interpretation: Low Risk Optimal Level: LDL Less than 100 mg/dL Near or Above Optimal: LDL 100-129 mg/dL Borderline High Risk: LDL 130-159 mg/dL High Risk: LDL 160-189 mg/dL Very High Risk: LDL Greater than 189 mg/dL 43 Serum levels of PSA measured using the [employer] DXI Hybritech immunoassay should not be interpreted as absolute evidence of the presence or absence of disease. The PSA value should be used in conjunction with other pertinent clinical diagnostic procedures. The values obtained with different assay methods or kits cannot be used interchangeably. 44 FASTING 45 Microalbuminuria in a random sample is defined as: Microalbumin/Creatinine ratio of 30-299 ug/mg. 46 HDL Interpretation: Undesirable: High Risk: Less than 40 MG/DL Desirable: Low Risk: Greater than 60 MG/DL 47 LDL Interpretation: Low Risk Optimal Level: LDL Less than 100 MG/DL Near or Above Optimal: LDL 100-129 MG/DL Borderline High Risk: LDL 130-159 MG/DL High Risk: LDL 160-189 MG/DL Very High Risk: LDL Greater than 189 MG/DL 48 CHOLESTEROL INTERPRETATION: Desirable: Less than 200 MG/DL Borderline-High Risk: 200-239 MG/DL High-Risk: 240 MG/DL and over 49 HDL INTERPRETATION: Undesirable: High Risk: Less than 40 MG/DL Desirable: Low Risk: Greater than 60 MG/DL 50 LDL INTERPRETATION: Low Risk Optimal Level: LDL Less than 100 MG/DL Near or Above Optimal: LDL 100-129 MG/DL Borderline High Risk: LDL 130-159 MG/DL High Risk: LDL 160-189 MG/DL Very High Risk: LDL Greater than 189 MG/DL 51 MICROALBUMINURIA IN A RANDOM SAMPLE IS DEFINED : MICROALBUMIN/CREATININE RATIO OF 30-299 ug/mg. . 52 -- REFERENCE VALUE -- 25-HYDROXY D TOTAL (D2+D3) Optimum levels in the normal population are 25-80 Test Performed by: [facility] Dpt of Lab Med and Pathology [address] [place], [place] [address] Rubbish Collection Supervisor: French Blackwell III, M.D. 53 No bands detected 54 No bands detected 55 Specific serologic response to B. burgdorferi infection is not detected, but cannot rule out early infection during which low or undetectable antibody levels to B. burgdorferi may be present. If clinically indicated, a new serum specimen should be submitted in 7-14 days. CDC criteria require >=5 bands for IgG or >=2 bands for IgM for the Western blot to be considered positive. Bands (e.g.,p41) may be detected in patients without Lyme disease, and patterns not meeting the CDC criteria should be interpreted with caution. Western blot should be ordered only on specimens that are positive or equivocal by a FDA-licensed Lyme disease antibody screening test (e.g., EIA). Test performed by immunoblot. Test Performed by: [facility] Dpt of Lab Med and Pathology [address] [place] [id number] Rubbish Collection Supervisor: French Blackwell III, M.D. 56 * SERUM LEVELS OF PSA MEASURED USING THE [employer] [facility] ACCESS HYBRITECH IMMUNOASSAY SHOULD NOT BE INTERPRETED ABSOLUTE EVIDENCE OF THE PRESENCE OR ABSENCE OF DISEASE. THE PSA VALUE SHOULD BE USED IN CONJUNCTION WITH OTHER PERTINENT CLINICAL DIAGNOSTIC PROCEDURES. 57 Note change in reference range as of 11/25/07. The change was based on recommendations from the [place] [employer]. 58 MICROALBUMINURIA IN A RANDOM SAMPLE IS DEFINED : MICROALBUMIN/CREATININE RATIO OF 30-299 ug/mg. . 59 THERAPEUTIC TARGET FOR THE TREATMENT OF DIABETES MELLITUS PATIENTS IS <7% HBA1C, AND IN SELECTIVE PATIENTS <6.0%. PLEASE REFER TO [place] [employer]ATION DIABETIC CARE GUIDELINES FOR FURTHER INFORMATION. 60 CHOLESTEROL INTERPRETATION: Desirable: Less than 200 MG/DL Borderline-High Risk: 200-239 MG/DL High-Risk: 240 MG/DL and over 61 HDL INTERPRETATION: Undesirable: High Risk: Less than 40 MG/DL Desirable: Low Risk: Greater than 60 MG/DL 62 LDL INTERPRETATION: Low Risk Optimal Level: LDL Less than 100 MG/DL Near or Above Optimal: LDL 100-129 MG/DL Borderline High Risk: LDL 130-159 MG/DL High Risk: LDL 160-189 MG/DL Very High Risk: LDL Greater than 189 MG/DL 63 CHOLESTEROL INTERPRETATION: Desirable: Less than 200 MG/DL Borderline-High Risk: 200-239 MG/DL High-Risk: 240 MG/DL and over 64 HDL INTERPRETATION: Undesirable: High Risk: Less than 40 MG/DL Desirable: Low Risk: Greater than 60 MG/DL 65 LDL INTERPRETATION: Low Risk Optimal Level: LDL Less than 100 MG/DL Near or Above Optimal: LDL 100-129 MG/DL Borderline High Risk: LDL 130-159 MG/DL High Risk: LDL 160-189 MG/DL Very High Risk: LDL Greater than 189 MG/DL 66 Note change in reference range as of 11/25/07. The change was based on recommendations from the [place] Diabetes [employer]. 67 THERAPEUTIC TARGET FOR THE TREATMENT OF DIABETES MELLITUS PATIENTS IS <7% HBA1C, AND IN SELECTIVE PATIENTS <6.0%. PLEASE REFER TO [place] [employer] DIABETIC CARE GUIDELINES FOR FURTHER INFORMATION. 68 FASTING 69 THERAPEUTIC TARGET FOR THE TREATMENT OF DIABETES MELLITUS PATIENTS IS <7% HBA1C, AND IN SELECTIVE PATIENTS <6.0%. PLEASE REFER TO [place] DIABETIC CARE GUIDELINES FOR FURTHER INFORMATION. 70 Note change in reference range as of 11/25/07. The change was based on recommendations from the [place] [employer]. 71 CHOLESTEROL INTERPRETATION: Desirable: Less than 200 MG/DL Borderline-High Risk: 200-239 MG/DL High-Risk: 240 MG/DL and over 72 HDL INTERPRETATION: Undesirable: High Risk: Less than 40 MG/DL Desirable: Low Risk: Greater than 60 MG/DL 73 LDL INTERPRETATION: Low Risk Optimal Level: LDL Less than 100 MG/DL Near or Above Optimal: LDL 100-129 MG/DL Borderline High Risk: LDL 130-159 MG/DL High Risk: LDL 160-189 MG/DL Very High Risk: LDL Greater than 189 MG/DL 74 Anion gap measurement may be of limited value in the presence of any alkalosis, especially in a combined acid base disorder. . 75 Note change in reference range as of 11/25/07. The change was based on recommendations from the [place] Diabetes [employer]. 76 Please note change in reference range effective 07 . 77 THERAPEUTIC TARGET FOR THE TREATMENT OF DIABETES MELLITUS PATIENTS IS <7% HBA1C, AND IN SELECTIVE PATIENTS <6.0%. PLEASE REFER TO [place]ATION DIABETIC CARE GUIDELINES FOR FURTHER INFORMATION. 78 CHOLESTEROL INTERPRETATION: Desirable: Less than 200 MG/DL Borderline-High Risk: 200-239 MG/DL High-Risk: 240 MG/DL and over 79 HDL INTERPRETATION: Undesirable: High Risk: Less than 40 MG/DL Desirable: Low Risk: Greater than 60 MG/DL 80 LDL INTERPRETATION: Low Risk Optimal Level: LDL Less than 100 MG/DL Near or Above Optimal: LDL 100-129 MG/DL Borderline High Risk: LDL 130-159 MG/DL High Risk: LDL 160-189 MG/DL Very High Risk: LDL Greater than 189 MG/DL 81 UNABLE TO CALCULATE IND.BILI D.BILI IS <0.1 82 Classification: Desirable . 83 Classification: Low . 84 CALCULATED LDL APPROXIMATES THE VALUE OF A DIRECT LDL MEASUREMENT. Classification: Near or above optimal . 85 Classification: Desirable . 86 Classification: Low . 87 CALCULATED LDL APPROXIMATES THE VALUE OF A DIRECT LDL MEASUREMENT. Classification: Near or above optimal . 88 * SERUM LEVELS OF PSA MEASURED USING THE [employer] ACCESS HYBRITECH IMMUNOASSAY SHOULD NOT BE INTERPRETED ABSOLUTE EVIDENCE OF THE PRESENCE OR ABSENCE OF DISEASE. THE PSA VALUE SHOULD BE USED IN CONJUNCTION WITH OTHER PERTINENT CLINICAL DIAGNOSTIC PROCEDURES. 89 Anion gap measurement may be of limited value in the presence of any alkalosis, especially in a combined acid base disorder. . 90 Classification: Desirable . 91 Classification: Low . 92 CALCULATED LDL APPROXIMATES THE VALUE OF A DIRECT LDL MEASUREMENT. Classification: Near or above optimal . 93 Classification: Desirable . 94 Classification: Low . 95 CALCULATED LDL APPROXIMATES THE VALUE OF A DIRECT LDL MEASUREMENT. Classification: Near or above optimal . 96 * SERUM LEVELS OF PSA MEASURED USING THE [employer] ACCESS HYBRITECH IMMUNOASSAY SHOULD NOT BE INTERPRETED ABSOLUTE EVIDENCE OF THE PRESENCE OR ABSENCE OF DISEASE. THE PSA VALUE SHOULD BE USED IN CONJUNCTION WITH OTHER PERTINENT CLINICAL DIAGNOSTIC PROCEDURES. A PSA value in the range of 0.1 to 0.6 ng/ml is indeterminate if being used as an indicator of recurrent or residual disease. . 97 UNABLE TO CALCULATE IND.BILI D.BILI IS <0.1 Procedures Date Code Description Status 01/19/2018 90207 I & D Abscess Simple Completed 12/10/2017 [id number] Colonoscopy Completed 10/26/2017 [id number] Diabetic Retinal Eye Exam Completed 08/28/2017 47947 Electrocardiogram Complete Completed 04/20/2017 384431021 Diabetic Foot Exam Completed 04/20/2017 41845 Electrocardiogram Complete Completed 04/21/2016 37669 Electrocardiogram Complete Completed 12/11/2015 03603 Excise Malig Lesion .6-1CM Trunk/Arm/Leg Completed 10/17/2015 04157 Shave Skin Lesion .6-1CM Trunk/Arm/Leg Completed 11/13/2014 94744 Electrocardiogram Complete Completed 10/19/2013 45987 X-Ray Chest Two Views Completed 10/19/2013 41695 Electrocardiogram Complete Completed 11/15/2012 92185 Electrocardiogram Complete Completed 11/15/2012 69016 X-Ray Chest Two Views Completed 11/15/2012 29563 Destruction Premalignant Skin Lesions Completed 09/01/2012 12604 X-Ray Chest Two Views Completed 11/10/2011 64789 Electrocardiogram Complete Completed 11/10/2011 37648 Remove Impact Cerumen Requiring Instrument, Unilateral Completed 12/13/2010 69460 Visual Acuity Screening Test Completed 03/27/2010 71045 Electrocardiogram Complete Completed 01/01/2010 0 Payment Completed 09/27/2004 84235 Electrocardiogram Complete Completed 04/22/2004 65354 Remove Impact Cerumen Requiring Instrument, Unilateral Completed Encounters Type Date Location Provider Dx Diagnosis Office Visit 04/08/2018 Main Office Yung Jose, R80.9 Proteinuria, 2:45p D.O. unspecified E11.21 Type 2 diabetes mellitus with diabetic nephropathy R60.1 Generalized edema F41.9 Anxiety disorder, unspecified Office Visit 04/07/2018 9:15a Main Office Tiago Tam, N28.9 Disorder of kidney M.D. and ureter, unspecified R80.9 Proteinuria, unspecified E11.21 Type 2 diabetes mellitus with diabetic nephropathy E11.65 Type 2 diabetes mellitus with hyperglycemia E83.51 Hypocalcemia R77.9 Abnormality of plasma protein, unspecified R60.1 Generalized edema Office Visit 02/24/2018 11:30a Main Office Tiago Tam, E11.21 Type 2 diabetes M.D. mellitus with diabetic nephropathy E11.65 Type 2 diabetes mellitus with hyperglycemia L72.3 Sebaceous cyst L03.313 Cellulitis of chest wall Office Visit 01/19/2018 4:20p Main Office Kailee Slaughter, L03.313 Cellulitis of P.A. chest wall L03.313 Cellulitis of chest wall L72.3 Sebaceous cyst L72.3 Sebaceous cyst Office Visit 01/16/2018 9:30a Main Office Kailee Slaughter L03.313 Cellulitis of P.A. chest wall D17.1 Benign lipomatous neoplasm of skin, subcu of trunk Office Visit 01/09/2018 10:30a Main Office Leonila Marr, L03.313 Cellulitis of PA chest wall D17.1 Benign lipomatous neoplasm of skin, subcu of trunk Office Visit 11/24/2017 9:45a Main Office Tiago Tam, E11.21 Type 2 diabetes M.D. 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 M65.312 Trigger thumb, left thumb Office Visit 09/28/2017 9:15a Main Office Tiago Tam.65 Type 2 diabetes Cha Ordoñez mellitus with hyperglycemia E11.21 Type 2 diabetes mellitus with diabetic nephropathy K14.6 Glossodynia Z79.4 snf (current) use of insulin Office Visit 08/28/2017 3:30p Main Office Tiago Tam, Z00.01 Encounter for Cha general adult medical exam w abnormal findings E11.65 Type 2 diabetes mellitus with hyperglycemia E11.21 Type 2 diabetes mellitus with diabetic nephropathy Z41.8 Encntr for oth proc for purpose [facility] M65.312 Trigger thumb, left thumb K14.6 Glossodynia Z23 Encounter for immunization Z71.89 Other specified counseling Z79.4 snf (current) use of insulin Office Visit 04/20/2017 11:45a Main Office Dana Tam65 Type 2 diabetes Cha Ordoñez mellitus with hyperglycemia E11.21 Type 2 diabetes mellitus with diabetic nephropathy F41.9 Anxiety disorder, unspecified E78.00 Pure hypercholesterolemia, unspecified K14.6 Glossodynia R23.4 Changes in skin texture Z23 Encounter for immunization E11.628 Type 2 diabetes mellitus with other skin complications Office Visit 10/14/2016 8:45a Main Office Silcoff, E11.65 Type 2 diabetes Cha Ordoñez mellitus with hyperglycemia F41.9 Anxiety disorder, unspecified M25.50 Pain in unspecified joint E78.00 Pure hypercholesterolemia, unspecified Office Visit 08/16/2016 10:30a Main Office Leonila Marr PA M25.512 Pain in left shoulder M25.541 Pain in joints of right hand Office Visit 07/22/2016 2:45p Main Office Yung Jose, M25.512 Pain in left D.O. shoulder M25.541 Pain in joints of right hand Office Visit 05/24/2016 11:00a Main Office Yung Jose, J31.0 Chronic rhinitis D.O. 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 carcinoma skin/ right upper limb, inc shoulder F41.9 Anxiety disorder, unspecified E11.65 Type 2 diabetes mellitus with hyperglycemia Office Visit 12/11/2015 2:30p Main Office Tiago Tam C44.622 Squamous cell M.D. carcinoma skin/ right upper limb, inc shoulder E11.65 Type 2 diabetes mellitus with hyperglycemia F41.9 Anxiety disorder, unspecified Office Visit 10/16/2015 8:30a Main Office Lana Tam Type 2 diabetes Cha Ordoñez mellitus with hyperglycemia D48.5 Neoplasm of uncertain behavior of skin Z91.11 Patient's noncompliance with dietary regimen Z23 Encounter for immunization Office Visit 09/21/2015 9:45a Main Office Rigoberto Gallegos H60.8x1 Other otitis Cha Carney externa, right ear Office Visit 05/21/2015 10:45a Main Office Silcoff, E11.65 Type 2 diabetes Cha Ordoñez mellitus with hyperglycemia Office Visit 02/14/2015 9:30a Main Office Anel E11.65 Type 2 diabetes Cha Ordoñez mellitus with hyperglycemia Z23 Encounter for immunization Z41.8 Encntr for oth proc for purpose oth [facility] Office Visit 11/13/2014 3:30p Main Office Anel 250.42 Diabetes W/ Renal Cha Ordoñez Manifestations Type II Uncontrolled 272.0 Hypercholesterolemia Pure 596.54 Neurogenic Bladder NOS V70.0 Examination General Medical Routine AT Health Care Facility Office Visit 06/16/2014 4:00p Main Office Rhianna Tam.42 Diabetes W/ Renal Cha Ordoñez Manifestations Type II Uncontrolled 272.0 Hypercholesterolemia Pure V76.44 Screening For Malig Rodolfo Prostate V76.43 Screening Malignant Neoplasm Skin 596.54 Neurogenic Bladder NOS 250.02 Diabetes Mellitus W/O Compl Type II Or Unspec Type Uncontrol Office Visit 02/14/2014 9:45a Main Office Anel 250.42 Diabetes W/ Renal Cha Ordoñez Manifestations Type II Uncontrolled 272.0 Hypercholesterolemia Pure 702.19 Seborrheic Keratosis Other 600.01 Hypertrophy Benign Of Prostate With Urinary Obstruction V04.81 Need For Prophylactic Vaccination & Inoculation/Influenza 585.9 Chronic Kidney Disease Unspecified V07.2 Prophylactic Immunotherapy 250.02 Diabetes Mellitus W/O Compl Type II Or Unspec Type Uncontrol Office Visit 12/12/2013 4:00p Main Office Rigoberto Gallegos 599.70 HematuriaAngelika M.D. Unspecified V12.72 History Personal Colonic Polyps Office Visit 11/28/2013 9:45a Main Office Tiago Tam, 600.01 Hypertrophy Benign M.D. Of Prostate With Urinary Obstruction V12.72 History Personal Colonic Polyps Office Visit 11/02/2013 11:40a Main Office Kailee Slaughter 709.9 Skin & Subcutaneous P.A. Tissue Disorders Unspec Office Visit 10/26/2013 4:45p Main Office Rhianna Tam.42 Diabetes W/ Ava Ordoñez M.D. Manifestations Type II Uncontrolled 235.2 Neoplasm Uncertain Stomach Intestine & Rectum 585.9 Chronic Kidney Disease Unspecified Office Visit 10/19/2013 12:55p Main Office Silcoff, Tiago, V72.84 Examination M.D. Preoperative Unspec 796.2 Blood Pressure Reading Elevated W/O Hypertension 250.42 Diabetes W/ Renal Manifestations Type II Uncontrolled 585.9 Chronic Kidney Disease Unspecified 272.0 Hypercholesterolemia Pure Office Visit 10/05/2013 2:30p Main Office Tiago Tam, 235.2 Neoplasm Uncertain M.D. Stomach Intestine & Rectum 300.00 Anxiety State Unspec Office Visit 03/18/2013 4:30p Main Office Anel 250.42 Diabetes W/ Renal Cha Ordoñez Manifestations Type II Uncontrolled 272.0 Hypercholesterolemia Pure v07.2 Prophylactic Immunotherapy v04.81 Need For Prophylactic Vaccination & Inoculation/Influenza 250.00 Diabetes Mellitus W/O Compl Type II Or Unspec Controlled 585.9 Chronic Kidney Disease Unspecified Office Visit 11/15/2012 2:00p Main Office Tiago Tam, 250.00 Diabetes Mellitus M.D. W/O Compl Type II Or Unspec Controlled 272.0 Hypercholesterolemia Pure 530.81 Esophageal Reflux V76.51 Special Screening For Malignant Neoplasms Colon 796.2 Blood Pressure Reading Elevated W/O Hypertension 702.0 Actinic Keratosis 486 Pneumonia Organism Unspec V70.0 Examination General Medical Routine AT Health Care Facility Office Visit 09/08/2012 4:45p Main Office Tiago Tam, 486 Pneumonia Organism M.D. Unspec 786.2 Cough 786.50 Pain Chest Unspec Office Visit 09/01/2012 4:45p Main Office Tiago Tam M.D. 786.2 Cough 786.50 Pain Chest Unspec 486 Pneumonia Organism Unspec Office Visit 05/31/2012 Main Office Anel 272.0 Hypercholesterolemia Pure 4:30p Cha Ordoñez 250.02 Diabetes Mellitus W/O Compl Type II Or Unspec Type Uncontrol 530.81 Esophageal Reflux V76.51 Special Screening For Malignant Neoplasms Colon Office Visit 11/10/2011 Main Office Anel 272.0 Hypercholesterolemia Pure 9:45a Cha Ordoñez 250.00 Diabetes Mellitus W/O Compl Type II Or Unspec Controlled 380.4 Impacted Cerumen V70.0 Examination General Medical Routine AT Health Care Facility V76.51 Special Screening For Malignant Neoplasms Colon v03.82 Streptococcus Pneumoniae Vaccination Spec Other v07.2 Prophylactic Immunotherapy Office Visit 08/30/2011 9:45a Main Office Kailee Slaughter, 461.8 Sinusitis Acute P.A. Other 786.2 Cough Office Visit 12/13/2010 2:45p Main Office Tiago Tam, 729.1 Myalgia & Myositis M.D. Unspec 780.79 Malaise And Fatigue Other 272.0 Hypercholesterolemia Pure 250.00 Diabetes Mellitus W/O Compl Type II Or Unspec Controlled V70.3 Examination Other Medical For Administrative Purpose V72.0 Examination Eyes & Vision Office Visit 09/09/2010 9:15a Main Office Tiago Tam, 780.79 Malaise And M.D. Fatigue Other 729.1 Myalgia & Myositis Unspec 272.0 Hypercholesterolemia Pure Office Visit 03/27/2010 Main Office Anel, 272.0 Hypercholesterolemia Pure 4:00p Cha Ordoñez 250.00 Diabetes Mellitus W/O Compl Type II Or Unspec Controlled V65.3 Dietary Surveillance & Counseling Office Visit 11/26/2009 Main Office Anel, 272.0 Hypercholesterolemia Pure 3:45p Cha Ordoñez 250.00 Diabetes Mellitus W/O Compl Type II Or Unspec Controlled V76.44 Screening For Malig Rodolfo Prostate 726.71 Bursitis Or Tendinitis Achilles Office Visit 07/25/2009 Main Office Anel, 272.0 Hypercholesterolemia Pure 9:30a Cha Ordoñez 790.6 Abnormal Blood Chemistry Other Office Visit 12/12/2008 Main Office Anel 790.6 Abnormal Blood Chemistry 1:15p Cha Ordoñez Other Office Visit 07/18/2008 Main Office Anel, 272.0 Hypercholesterolemia Pure 9:30a Cha Ordoñez 790.6 Abnormal Blood Chemistry Other Office Visit 04/24/2008 Main Office Anel, 272.0 Hypercholesterolemia Pure 2:00p Cha Ordoñez 300.02 Anxiety Disorder Generalized 530.81 Esophageal Reflux 278.02 Overweight V76.44 Screening For Malig Rodolfo Prostate V65.49 Counseling Other Spec Office Visit 03/16/2007 4:00p Main Office Tiago Tam, 374.9 Eyelid Disorder M.D. Unspec 278.00 Obesity Unspec Office Visit 05/27/2006 Main Office Anel, 272.0 Hypercholesterolemia Pure 9:45a Cha Ordoñez 300.02 Anxiety Disorder Generalized 278.02 Overweight V76.51 Special Screening For Malignant Neoplasms Colon 530.81 Esophageal Reflux Office Visit 09/30/2005 Main Office Anel, 272.0 Hypercholesterolemia Pure 10:45a Cha Ordoñez 300.02 Anxiety Disorder Generalized V76.44 Screening For Malig Rodolfo Prostate 278.02 Overweight Office Visit 09/27/2004 Main Office Anel, 272.0 Hypercholesterolemia Pure 12:55p Cha Ordoñez 300.02 Anxiety Disorder Generalized 786.59 Pain Chest Other Office Visit 04/22/2004 Main Office Anel, 272.0 Hypercholesterolemia Pure 2:00p Cha Ordoñez 300.02 Anxiety Disorder Generalized 702.19 Seborrheic Keratosis Other 110.4 Dermatophytosis Foot 380.4 Impacted Cerumen V76.44 Screening For Malig Rodolfo Prostate Office Visit 11/10/2003 9:30a Main Office Anel 110.1 Dermatophytosis Nail Cha Ordoñez Office Visit 07/19/2003 4:00p Main Office Anel 702.19 Seborrheic Keratosis Cha Ordoñez Other V76.51 Special Screening For Malignant Neoplasms Colon 783.0 Anorexia 285.9 Anemia Unspec Office Visit 05/29/2003 4:30p Main Office Tiago Tam M.D. 783.0 Anorexia V76.51 Special Screening For Malignant Neoplasms Colon Office Visit 04/19/2003 4:30p Main Office Tiago Tam, 300.02 Anxiety Disorder Cha Generalized V65.5 Person W/ Feared Complaint In Whom No Diagnosis Was Made 783.21 Loss Of Weight Office Visit 03/28/2003 1:15p Main Office Tiago Tam M.D. 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 at [id number]/08/2018 - Yung Jose D.O.R80.9 Proteinuria, [id number] Type 2 diabetes mellitus with diabetic [id number] Generalized dixsfR67.9 Anxiety disorder, unspecified
--- OUTSIDE RECORDS SUMMARY | 2018-04-11 13:07 | XMS REPORT | Continuity of Care Document ---
:1945 External Reference #:[id number] Author Name Tiago Tam M.D. Address [address] [facility] [address] [place] [address] Care Team Providers Name Role Phone HCP given Primary Care Physician Unavailable Payers Type Date Identification Numbers Payment Provider Subscriber Policy Number: [id number] [facility] Lefty Harden PayID: [id number] [address] [place] [address] Policy Number: [id number] [facility] [place] Lefty Harden PayID: [id number] [address] [place] [address] Advance Directives Description No Information Available Problems Date Description Provider Status Onset: 11/10/2011 Pure hypercholesterolemia Tiago Tam M.D. Active Onset: 11/10/2011 Type 2 diabetes mellitus Tiago Tam M.D. Active Onset: 03/18/2013 Type 2 diabetes mellitus Tiago Tam M.D. Active Onset: 05/24/2016 Chronic rhinitis Yung Jose D.O. Active Family History Date Family Member(s) Problem(s) Comments Father Heart Disease : (age 60 Father due to [place] smoker Years) Father Hypertension ? Father Hypercholesterolemia ? 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 Tobacco Use Reviewed: 06/16/14 Denies Cigarette Use Smoking Status Reviewed: 01/19/18 Denies Cigarette Use ETOH Use 02/14/2014 Denies alcohol use Recreational Drug Use Denies Drug Use Tobacco Use Start: Unknown Non Smoker Enjoy Exercising Enjoys exercising Avid biker Allergies, Adverse Reactions, Alerts Date Description Reaction Status Severity Comments 03/27/2010 No Known Drug Allergy Active Medications Medication Date Status Form Strength Qnty SIG Indications Ordering Provider Furosemide 04/04 Active Tablets 20mg 20tab 1 tablet by R60.1 Unknown s mouth daily Ondansetron 03/29 Hx Tablets 4mg 10tab 1 by mouth R11.0 Silcoff, HCL s every 4 hours Tiago, - as needed for M.D. 04/08 nausea Lantus 12/26 Active Solution 100Unit/M 15ml inject 30units E11.65 Silcoff, Solostar Pen-Inject L once daily, at Tiago, same time M.D. every day; for blood sugar control Freestyle 09/28 Active Misc 100un use 1-2x/day E11.65 Silli, Lancets its for blood Tiago sugar M.D. monitoring Freestyle 09/18 Active Strips 100un use 2x/day as E11.65 Silli Lite Test its directed for Tiago, monitoring M.D. blood sugar Pen [place] 08/28 Active Misc 31G X 8 100un use as E11.65 Silcoff, mm its directed Tiago, (once/day) for M.D. insulin administration Flonase 05/24 Active Suspension 50mcg/Act 47.40 2 sprays twice J31.0 Sopchak, Allergy 0ml a day until Yung, Relief better. D.O. Clonazepam 12/24 Active Tablets 0.5mg 60tab 1/2-1 by mouth F41.9 Silcoff, s 3x/day as Tiago, needed for M.D. anxiety Glipizide ER 05/21 Active Tablets ER 5mg 180ta take 1 tablet E11.65 Silcoff 24HR bs by mouth Tiago, 2x/day to M.D. lower blood sugar Tamsulosin 02/07 Active Capsules 0.4mg daily CAS Fonseca MD Marion Cartagena 28G 09/20 Active 100un Use as Silcoff, Lanc its Directed 1-2 Tiago, Times A Day [...] Silcorafal, /2008 heart disease carey Ordoñez M.D. Farxiga 03/05 Hx Tablets 5mg 90tab 1 tab by mouth E11.65 Silcorafal, s every day for Tiago, - blood sugar M.D. 04/06 E11.21 E11.65 Tradjenta 02/24/2018 - Hx Tablets 5mg 90tabs 1 by mouth E11. Silcorafal, 03/05/2018 every day for Cha Ordoñez blood sugar control E11 E11. Amoxicillin/Clavulanate 01/09/2018 Hx Tablets 875-125mg 20tabs 1 tab L03.313 Silcorafal, Potassium - by Tiago 01/19/2018 mouth M.DMeaghan twice a day x10 days Lantus Solostar [...] for blood sugar contro l Lantus Solostar 09/09/2017 Hx Solution 100Unit/ML inject E11.65 Silcoff, - Pen-Inje 15unit Tiago, 09/11/2017 ct s once M.D. daily, at same time every day; for blood sugar contro l Lantus Solostar 08/28/2017 Hx Solution 100Unit/ML 15ml inject E11.65 [...] needed for nasal draina ge Saline Nasal [place] 05/24/2016 Hx Solution 0.65% 132ml Use 5 J31.0 Sopchak, - times Yung, 09/28/2017 a day D.O. as needed for nasal conges tant. Hydrocodone 05/24/2016 Hx Suer 10-8mg/5ML 118ml take 5 R05 Sopchak, Polistirex/Chlorpheniram - millil Yung, ine Polistirex 06/03/2016 iters D.O. by mouth every 12 hours as needed for cough Escitalopram Oxalate 04/21/2016 Hx Tablets 10mg 30tabs 1/2 by F41.9 Silcoff, - mouth Tiago, 10/13/2016 every M.D. day for 1 week then 1 tablet daily; for mood Bydureon 02/21/2016 Hx Pen 2mg 4units inject E11.65 Silcoff, - 2mg Tiago, 08/28/2017 once M.D. weekly as direct ed for blood sugar contro l Bydureon 10/16/2015 Hx Pen 2mg 12units inject E11.65 Silcoff, - 2mg Tiago, 12/11/2015 once M.D. weekly as direct ed for blood sugar contro l Pen [place] 10/16/2015 Hx Misc 31G X 5 mm 25units use as E11.65 Anel - direct Tiago, 08/28/2017 ed for M.D. admini strati on of Bydure on Neomycin/Polymyxin/[place] 09/21/2015 Hx Suspensi 3.5-03258- 10ml 4-5 H60.8x1 Rigoberto cortisone (Otic) - on 1 drops A. 10/01/2015 in [facility], right M.D. ear qid x 7days Metformin HCL ER 05/20/2015 Hx Tablets 500mg 270tabs 2 by E11.65 Anel, - ER 24HR mouth Tiago, 02/24/2018 every M.D. mornin g and 1 every evenin g; for blood sugar contro l E11.21 E11.65 Glipizide ER 02/14/2015 - Hx Tablets ER 5mg 90tabs take 1 . Anel, 05/21/2015 24HR tablet by shey Ordoñez every M.D. morning to lower blood sugar Metformin HCL 02/14/2015 - Hx Tablets ER 500mg 360tabs take four E11.65 Silcoff, ER 05/20/2015 24HR tablets by shey [...] Capsules 100mg 30caps 1-2 by mouth 786.2 Marysecoff, 11/14/2012 three times a Cha Ordoñez day as needed for cough 486 Levofloxacin 09/01/2012 - Hx Tablets 750mg 10tabs 1 by mouth 486 Silcoff, 09/11/2012 every day Tiago, for M.D. pneumonia Metformin HCL ER 05/31/2012 - Hx Tablets ER 500mg 180tabs 2 by mouth 250.02 Silcoff, 10/19/2013 24HR every Tiago, evening, to M.D. lower your blood sugar 250.00 250.42 Crestor 11/10/2011 - Hx Tablets 10mg 90tabs take 1 tablet 272.0 Silcoff , 06/02/2012 by mouth Tiago daily for M.D. high cholesterol Amoxicillin 08/30/2011 - Hx Capsules 500mg 40caps 2 tab po bid 461.8 Silcoff, 09/10/2011 x 10 days Cha Ordoñez Guaifenesin/Co 08/30/2011 - Hx Solution 100-10 100ml 1-2 tsps q4-6 786.2 Anel deine 09/10/2011 mg/5ML hrs, prn Tiago, M.D. Simvastatin 12/13/2010 - Hx Tablets 40mg 90tabs [...] 1 po qd for 272.0 Silcoff, 09/13/2010 high becca Ordoñez.Isaak Paxil 09/27/2004 - Hx Tablets 40mg 1.5 [...] Capsules 40mg 1 po bid Unknown 04/19/2003 [place] - Hx Capsules 300mg 1 po tid Unknown Carbonate 05/27/2006 Lipitor - Hx Tablets 20mg 90tabs 1 po qd with Silcoff, 05/05/2005 supper for high Cha Ordoñez cholesterol Immunizations CPT Code Status Date Vaccine Lot # [id number] Given 01/20/2018 Influenza Vaccine, Inactivated, Subunit, [id number] Adjuvanted, For [facility] [address] Given 04/20/2017 Influenza Virus Vaccine, Quadrivalent, Split, [id number] Preservative Free 45523 Given 04/21/2016 Influenza Virus Vaccine, Quadrivalent, Split, [id number] Preservative Free 80904 Given 11/23/2015 Adacel or Boostrix, TDaP [id number] 68406 Given 10/16/2015 Prevnar 13 [id number] 52615 Given 02/14/2015 Influenza Vaccine Split Virus Preservative Free Im [id number] Use 82902 Given 02/14/2014 Flu, Split Virus 3Yrs 113881 83752 Given 03/18/2013 Flu, Split Virus 3Yrs [id number] 26293 Given 11/10/2011 Pneumococcal Immunization [id number] Refused 08/28/2017 Shingrix Zoster (Shingles) Vaccine (HZV) Recomb,Subnit,Adjuvanted 41201 Refused 10/16/2015 Adacel or Boostrix, TDaP 42630 Refused 11/13/2014 Prevnar 13 [id number] Refused 04/24/2008 Zostavax [id number] Refused 04/24/2008 Adacel or Boostrix, TDaP Vital Signs Date Vital Result Comment 04/07/2018 9:33am BP Systolic 140 mmHg BP [...] Date Facility Test Result H/L Range Note Basic Metabolic Panel 04/07/2018 [facility] Sodium 143 mmol/L N 135- 145 [phone] Potassium 4.1 mmol/L N 3.5-5.0 Chloride 110 mmol/L N 101-111 Co2 Carbon Dioxide 27 mmol/L N 22-32 Anion Gap 6 mmol/L N 2-11 Glucose 60 mg/dL Low 70-100 Blood Urea Nitrogen 50 mg/dL High 6-24 Creatinine 2.55 mg/dL High 0.67-1.17 BUN/Creatinine Ratio 19.6 N 8-20 Calcium 7.4 mg/dL Low 8.6-10.3 Egfr Non- 24.9 >60 Egfr 30.1 >60 1 Urine Culture And 04/03/2018 [facility] Urine Culture SEE RESULT 2 Sensitivities [phone] BELOW Laboratory test 04/03/2018 [facility] TSH (Thyroid 4.79 mcIU/mL N 0.34-5. finding [phone] Stim Horm) 60 CBC Auto Diff 04/03/2018 [facility] White Blood 7.4 10^3/uL N 3.5- 10. [phone] Count 8 Red Blood Count 5.54 10^6/uL [...] Cells % 0 Comp Metabolic Panel 04/03/2018 [facility] Sodium 138 mmol/L N 135- 145 [phone] Potassium 3.6 mmol/L N 3.5-5.0 Chloride 106 [...] Egfr 28.5 >60 3 Urinalysis Profile 04/03/2018 [facility] Urine Color Yellow [phone] Urine Appearance Cloudy Urine Specific Jansen 1.025 N 1.010-1.030 Urine pH 5.0 N [...] Hemoglobin A1c 7.9 finding Laboratory test 12/10/2017 [facility] Surgical Pathology SEE RESULT 4 finding [phone] BELOW Laboratory test 11/24/2017 In House Hemoglobin A1c 8.0 finding Laboratory test 09/28/2017 [facility] Fructosamine 279 mcmol/L 200 - 285 5 finding [phone] Vitamin B12 752 pg/mL N 180-914 6 Methylmalonic Acid Mma 0.13 nmol/mL <=0.40 7 Laboratory test 08/28/2017 In House Hemoglobin A1c 8.1 finding Laboratory test 04/20/2017 [facility] PSA Screening 0.815 ng/mL 0- 4.0 8 finding [phone] Laboratory test 04/20/2017 [facility] Vitamin B12 262 pg/mL N 180- 884 9 finding [phone] Laboratory test 04/20/2017 In House Hemoglobin A1c 8.5 finding Laboratory test 04/14/2017 [facility] Alt (SGPT) 19 U/L N 7-52 finding [phone] Lipid Profile 04/14/2017 [facility] Triglycerides 97 mg/dL 10 (Trig/Chol/HDL) [phone] Cholesterol 122 mg/dL 11 HDL Cholesterol 30.5 mg/dL 12 LDL Cholesterol 72 mg/dL 13 Urine Microalbumin 04/14/2017 [facility] Ur Microalbumin 60.3 mg/L Random [phone] (mg/L) Urine Creatinine 125.15 mg/dL Urine Microalbumin/Creatinine 48.1 ug/mg High <31 Laboratory test 10/14/2016 In House Hemoglobin A1c 7.2 finding Laboratory test 04/21/2016 [facility] Alt (SGPT) 18 U/L N 7-52 14, 15 finding [phone] Lipid Profile 04/21/2016 [facility] Triglycerides 68 mg/dL N 16 (Trig/Chol/HDL) [phone] Cholesterol 111 mg/dL N 17 HDL Cholesterol 29.5 mg/dL N 18 LDL Cholesterol 68 mg/dL N 19 Basic Metabolic Panel 04/21/2016 [facility] Sodium 138 mmol/L N 133- 145 [phone] Potassium 4.4 mmol/L N 3.5-5.0 Chloride 106 mmol/L N 101-111 Co2 Carbon Dioxide 28 mmol/L N 22-32 Anion Gap 4 mmol/L N 2-11 Glucose 134 mg/dL High 70-100 Blood Urea Nitrogen 18 mg/dL N 6-24 Creatinine 1.09 mg/dL N 0.67-1.17 BUN/Creatinine Ratio 16.5 N 8-20 Calcium 9.3 mg/dL N 8.6-10.3 Egfr Non- 66.7 N >60 Egfr 85.8 N >60 20 Urine Microalbumin 04/21/2016 [facility] Urine Creatinine 197.10 mg/dL N Random [phone] Ur Microalbumin (mg/L) 35.5 mg/L N Urine Microalbumin/Creatinine 18.0 ug/mg N <31 Laboratory test 04/21/2016 In House Hemoglobin A1c 7.6 finding Laboratory test 12/12/2015 [facility] Surgical Pathology SEE RESULT 21, 22 finding [phone] BELOW Laboratory test 10/17/2015 [facility] Surgical Pathology SEE RESULT 23, 24 finding [phone] BELOW Laboratory test 10/16/2015 In House Hemoglobin A1c 7.2 finding Laboratory test 05/21/2015 [facility] PSA Screening 0.803 ng/mL N 0- 4.0 25 finding [phone] Laboratory test 05/21/2015 In House Hemoglobin A1c 7.8 finding Urine Microalbumin 05/21/2015 [facility] Ur Microalbumin 41.0 mg/L N Random [phone] (mg/L) Urine Creatinine 148.81 mg/dL N Urine Microalbumin/Creatinine 27.5 ug/mg N <31 Laboratory test 02/14/2015 In House Hemoglobin A1c 8.8 finding Laboratory test 12/12/2014 [facility] Surgical SEE RESULT 26 finding [phone] Pathology BELOW Laboratory test 11/16/2014 [facility] Ferritin 42.3 ng/mL N 24-336 finding [phone] Liver Function 11/16/2014 [facility] Total Protein 6.6 g/dL N 6.4- 8.9 Panel [phone] Albumin 4.3 g/dL N 3.2-5.2 Globulin 2.3 g/dL N 2-4 Albumin/Globulin Ratio 1.9 N 1-3 Total Bilirubin 0.60 mg/dL N 0.2-1.0 Direct Bilirubin 0.10 mg/dL N 0.03-0.18 Indirect Bilirubin 0.5 mg/dL N 0.3-1.0 Alkaline Phosphatase 56 U/L N 34-104 Alt 20 U/L N 7-52 Ast 17 U/L N 13-39 CBC Auto Diff 11/16/2014 [facility] White Blood Count 6.7 10^3/uL N 4.8-10.8 [phone] Red Blood Count 5.20 10^6/uL N 4.0-5.4 [...] % 0.2 N Laboratory test finding 11/13/2014 [facility] Alt (SGPT) 17 U/L N 7- 52 [phone] Lipid Profile 11/13/2014 [facility] Triglycerides 116 mg/dL N 27 (Trig/Chol/HDL) [phone] Cholesterol 137 mg/dL N 28 HDL Cholesterol 29.9 mg/dL N 29 LDL Cholesterol 84 mg/dL N 30 Basic Metabolic Panel 11/13/2014 [facility] Sodium 138 mmol/L N 133- 145 [phone] Potassium 4.1 mmol/L N 3.5-5.0 Chloride 106 [...] Hemoglobin A1c 8.9 finding Urine Microalbumin 02/14/2014 [facility] Ur Microalbumin 29.0 mg/L N Random [phone] (mg/L) Urine Creatinine 154.78 mg/dL N Urine Microalbumin/Creatinine 18.7 N Less Than 31 Lipid Profile 02/14/2014 [facility] Triglycerides 100 mg/dL N 32 (Trig/Chol/HDL) [phone] Cholesterol 129 mg/dL N 33 HDL Cholesterol 32.4 mg/dL N 34 LDL Cholesterol 77 mg/dL N 35 Laboratory test finding 02/14/2014 In House Hemoglobin A1c 7.6 Urine Micro Inhouse 12/12/2013 In House Ua WBC - Ua RBC 1-2 Ua Casts - Ua Epi - Ua Other - Ua Glucose - Ua Bilirubin - Ua Ketones - Ua Specific Jansen 1.020 Ua Blood mod Ua PH 6.0 Ua Protein tr Ua Urobilinogen - Ua Nitrite - Ua Leukocytes - Urinalysis Profile 11/21/2013 [facility] Urine Color Yellow N [phone] Urine Appearance Clear N Urine Specific Jansen 1.017 N 1.010-1.030 Urine pH 5.0 N [...] Quantitative 199 finding CBC Auto Diff 10/04/2013 [facility] White Blood Count 6.3 N 4.8-10. [phone] 10^3/uL 8 Red Blood Count 5.22 10^6/uL [...] % 0 N Comp Metabolic Panel 10/04/2013 [facility] Sodium 140 mmol/L N 133- 145 [phone] Potassium 4.3 mmol/L N 3.7-5.6 Chloride 107 [...] 83.6 N >60 36 Liver Function 10/04/2013 [facility] Direct Bilirubin 0.10 mg/dL N 0.03-0.18 Panel [phone] Indirect Bilirubin 0.5 mg/dL N 0.3-1.0 Laboratory 10/04/2013 [facility] Carcinoembryonic 7.1 ng/mL High 0.1- 5.0 37 test finding [phone] Antigen Hemoglobin A1c 9.1 % High Less than 6.0 38 Surgical Pathology 09/28/2013 [facility] S RUN DATE: 56 [phone] 10/03/ <SEE NOTE> Laboratory test 03/18/2013 In House Hemoglobin A1c 8.0 finding Occult 11/18/2012 In House Misc neg x3 Blood,Triple Basic Metabolic 11/16/2012 [facility] Sodium 138 mmol/L 133-145 Panel [phone] Potassium 4.3 mmol/L 3.5-5.0 Chloride 105 mmol/L 101-111 Co2 Carbon Dioxide 28.0 mmol/L 22-32 Anion Gap 5.0 mmol/L 2-11 Glucose 141 mg/dL High 70-100 Blood Urea Nitrogen 21 mg/dL 6-24 Creatinine 1.00 mg/dL 0.50-1.40 BUN/Creatinine Ratio 21.0 High 8-20 Calcium 9.3 mg/dL 8.1-9.9 Egfr Non- 74.3 >60 Egfr 95.6 >60 40 Lipid Profile 11/16/2012 [facility] Triglycerides 74 mg/dL 40-200 (Trig/Chol/HDL) [phone] Cholesterol 153 mg/dL Less than 200 HDL Cholesterol 32 mg/dL Low 40-60 41 Cholesterol/HDL Ratio 4.8 Average High 1-4.44 LDL Cholesterol 106.2 High Less Than 100 42 Laboratory test 11/16/2012 [facility] Alt 23 U/L 14-54 43 finding [phone] CBC With Manual 11/16/2012 [facility] White Blood 6.4 10^3/uL 4.8- 10.8 Diff [phone] Count Red Blood Count 5.07 10^6/uL 4.0-5.4 [...] Hypochromasia 1+ Darline Cells 2+ Laboratory test 11/16/2012 [facility] PSA Screening 0.9 ng/mL 0-4.0 44 finding [phone] Urine Microalbumin 11/15/2012 [facility] Ur Microalbumin 86.0 mg/L 45 Random [phone] (mg/L) Urine Creatinine 233.4 mg/dL Urine Microalbumin/Creatinine 36.8 High Less Than 31 Laboratory test finding 11/15/2012 In House Hemoglobin A1c 7.6 Laboratory test finding 05/31/2012 In House Hemoglobin A1c 7.3 Lipid Profile 05/26/2012 [facility] Triglycerides 113 mg/dL 40-200 (Trig/Chol/HDL) [phone] Cholesterol 153 mg/dL Less than 200 HDL Cholesterol 34 mg/dL Low 40-60 46 Cholesterol/HDL Ratio 4.5 Average High 1-4.44 LDL Cholesterol 96.4 mg/dL Less Than 100 47 Laboratory test finding 05/26/2012 [facility] 26 U/L 14-54 [phone] Laboratory test finding 11/10/2011 [facility] Alt (SGPT) 18 U/L 17- 63 [phone] Lipid Profile 11/10/2011 [facility] Triglyceride 127 mg/dL 40-200 (Trig/Chol/HDL) [phone] Cholesterol 200 mg/dL Less Than 200 48 High Density Lipoprotein 29 mg/dL Low 40-60 49 Cholesterol/HDL Ratio 6.90 AVERAGE High 1-4.97 Low Density Lipoprotein 146 mg/dL High Less Than 100 50 Urine Microalbumin 11/10/2011 [facility] Microalbumin (MG/L) 45.0 mg/L Random [phone] Urine Creatinine 134.4 mg/dL Tesfaye Alb/Creatinine Ratio 33.5 UG/MG High Less Than 30 51 Laboratory test 11/10/2011 In House Hemoglobin A1c 6.7 finding Laboratory test 12/13/2010 In House Hemoglobin A1c 6.8 finding Laboratory test 09/09/2010 [facility] Erythrocyte Sed Rate 4 MM/HR 0 -40 finding [phone] CPK (Creatine Kinase) 233 U/L High 0-200 C Reactive Protein < 0.5 mg/dL Less Than 0.5 Vitamin D, 25 09/09/2010 [facility] 25-Hydroxy Vitamin D2 <4.0 ng/mL () Hydroxy [phone] 25-Hydroxy Vitamin D3 28 ng/mL () 25-Hydroxy Vitamin D Total 28 ng/mL () 52 CBC Auto Diff 09/09/2010 [facility] White Blood Count 6.4 CUMM 4.8- 10.8 [phone] Red Cell Count 5.12 CUMM 4.6-6.2 Hemoglobin [...] Abs Basophils 0 0-0.2 Laboratory test 09/09/2010 [facility] TSH 1.81 MIU/ML 0.34-5.60 finding [phone] Lyme Western Blot 09/09/2010 [facility] Lyme Igg Negative Negative Specialty [phone] Western Blot Lyme Igg Bands Detected No bands detecte <SEE NOTE> kDa () 53 Lyme Igm Western Blot Negative Negative Lyme Igm Bands Detected No bands detecte <SEE NOTE> kDa () 54 Lyme Disease Interpretation . () 55 Laboratory test finding 03/27/2010 In House Hemoglobin A1c 6.8 Laboratory test finding 11/26/2009 [facility] PSA Screening 0.78 NG/ML 0-4 56 [phone] Glucose 55 mg/dL Low 70-100 57 Urine Microalbumin 11/26/2009 [facility] Microalbumin (MG/L) 38.0 mg/L Random [phone] Urine Creatinine 125.48 mg/dL Tesfaye Alb/Creatinine Ratio 30.2 UG/MG Less Than 30 58 Laboratory test finding 11/26/2009 [facility] Alt (SGPT) 23 U/L 17- 63 [phone] Hemoglobin A1c 7.1 % High Less Than 6.0 59 Lipid Profile 11/26/2009 [facility] Triglyceride 102 mg/dL 40-200 (Trig/Chol/HDL) [phone] Cholesterol 167 mg/dL Less Than 200 60 High Density Lipoprotein 27 mg/dL Low 40-60 61 Cholesterol/HDL Ratio 6.19 AVERAGE High 1-4.97 Low Density Lipoprotein 120 mg/dL High Less Than 100 62 Lipid Profile 07/25/2009 [facility] Triglyceride 66 mg/dL 40-200 (Trig/Chol/HDL) [phone] Cholesterol 175 mg/dL Less Than 200 63 High Density Lipoprotein 27 mg/dL Low 40-60 64 Cholesterol/HDL Ratio 6.48 AVERAGE High 1-4.97 Low Density Lipoprotein 135 mg/dL High Less Than 100 65 Laboratory test finding 07/25/2009 [facility] Alt (SGPT) 17 U/L 17- 63 [phone] Glucose 117 mg/dL High 70-100 66 Hemoglobin A1c 6.9 % High Less Than 6.0 67 Laboratory test 12/13/2008 [facility] Hemoglobin A1c 7.0 % High Less Than 68, 69 finding [phone] 6.0 Glucose 109 mg/dL High 70-100 70 Lipid Profile 07/17/2008 [facility] Triglyceride 114 mg/dL 40-200 (Trig/Chol/HDL) [phone] Cholesterol 161 mg/dL Less Than 200 71 High Density Lipoprotein 29 mg/dL Low 40-60 72 Cholesterol/HDL Ratio 5.55 AVERAGE High 1-4.97 Low Density Lipoprotein 109 mg/dL High Less Than 100 73 Liver Function Panel 07/17/2008 [facility] Total Protein 7.0 GM/DL 6.2-8.0 [phone] Albumin 4.0 GM/DL 3.2-5.2 Globulin 3.0 GM/DL 2-4 Albumin/Globulin Ratio 1.3 1-3 Bilirubin Total 0.9 mg/dL 0.4-1.5 Bilirubin Direct 0.2 mg/dL 0.1-0.5 Indirect Bilirubin 0.7 mg/dL 0.1-0.75 Alkaline Phosphatase 64 U/L 39-117 Alt (SGPT) 32 U/L 17-63 Ast (Sgot) 29 U/L 12-42 Basic Metabolic Panel 07/17/2008 [facility] Sodium 139 mmol/L 135- 145 [phone] Potassium 3.6 mmol/L 3.5-5.0 Chloride 106 mmol/L 101-111 Co2 (Carbon Dioxide) 28.0 mmol/L 22-32 Anion Gap 5.0 mmol/L 2-11 74 Glucose 133 mg/dL High 70-100 75 BUN 22 mg/dL 6-24 Creatinine 1.11 mg/dL 0.50-1.40 One Over Creatinine 0.90 BUN/Creatinine Ratio 19.8 8-20 Calcium 9.5 mg/dL 8.1-9.9 76 Laboratory test 07/17/2008 [facility] Hemoglobin A1c 7.2 % High <6.0 77 finding [phone] Lipid Profile 04/24/2008 [facility] Triglyceride 118 mg/dL 40-200 (Trig/Chol/HDL) [phone] Cholesterol 236 mg/dL High Less Than 200 78 High Density Lipoprotein 31 mg/dL Low 40-60 79 Cholesterol/HDL Ratio 7.61 AVERAGE High 1-4.97 Low Density Lipoprotein 181 mg/dL High Less Than 100 80 Liver Function Panel 04/24/2008 [facility] Total Protein 5.8 GM/DL Low 6.2-8.5 [phone] Albumin 3.7 GM/DL 3.2-5.2 Globulin 2.1 GM/DL 2-4 Albumin/Globulin Ratio 1.8 1-3 Bilirubin Total 0.7 mg/dL 0.4-1.5 Bilirubin Direct < 0.1 mg/dL Low 0.1-0.5 Indirect Bilirubin (SEE NOTE) mg/dL 0.1-0.75 81 Alkaline Phosphatase 63 U/L 39-117 Alt (SGPT) 22 U/L 17-63 Ast (Sgot) 20 U/L 12-42 Laboratory test 04/24/2008 [facility] PSA Screening 0.67 NG/ML 0-4 finding [phone] Lipid Profile 05/27/2006 [facility] Cholesterol/HDL 6.00 AVERAGE High 1-4.97 (Trig/Chol/HDL) [phone] Ratio Cholesterol 180 mg/dL Less Than 200 82 Triglyceride 136 mg/dL 40-200 High Density Lipoprotein 30 mg/dL Low 40-60 83 Low Density Lipoprotein 123 mg/dL High Less Than 100 84 Laboratory test 05/27/2006 [facility] Alt (SGPT) 28 U/L -63 finding [phone] Lipid Profile 2005 [facility] Cholesterol/HD 5.39 AVERAGE High 1-4.97 (Trig/Chol/HDL) [phone] L Ratio Cholesterol 167 mg/dL Less Than 200 85 Triglyceride 152 mg/dL 40-200 High Density Lipoprotein 31 mg/dL Low 40-60 86 Low Density Lipoprotein 106 mg/dL High Less Than 100 87 Laboratory test finding 2005 [facility] Alt (SGPT) 20 U/L 63 [phone] PSA Screening 0.81 NG/ML 0.00-4.00 88 Laboratory test 09/27/2004 [facility] TSH 1.64 MIU/ML 0.34-5.60 finding [phone] Basic Metabolic Panel 09/27/2004 [facility] Anion Gap 7.0 mmol/L 2- 11 89 [phone] BUN 16 mg/dL 6-24 Calcium 9.6 mg/dL 8.7-10.2 Chloride 106 mmol/L 101-111 Co2 (Carbon Dioxide) 28.0 mmol/L 22-32 Creatinine 1.1 mg/dL 0.5-1.4 Glucose 97 mg/dL 70-105 Potassium 4.6 mmol/L 3.5-5.0 Sodium 141 mmol/L 135-145 BUN/Creatinine Ratio 14.5 8-20 Laboratory test 09/27/2004 [facility] [place] 0.8 mmol/L 0.5-1.5 finding [phone] Thyroxine Free 09/27/2004 [facility] Free Thyroxine 0.55 ng/dL Low 0.58-1.64 [phone] Laboratory test 09/27/2004 [facility] Alt (SGPT) 21 U/L 35 finding [phone] Lipid Profile 09/27/2004 [facility] Cholesterol/HD 5.61 AVERAGE High 1-4.97 (Trig/Chol/HDL) [phone] L Ratio Cholesterol 174 mg/dL Less Than 200 90 Triglyceride 113 mg/dL 40-200 High Density Lipoprotein 31 mg/dL Low 40-60 91 Low Density Lipoprotein 120 mg/dL High Less Than 100 92 Lipid Profile 04/22/2004 [facility] Cholesterol/HDL 4.91 1-4.97 (Trig/Chol/HDL) [phone] Ratio AVERAGE Cholesterol 172 mg/dL Less Than 200 93 Triglyceride 109 mg/dL 40-200 High Density Lipoprotein 35 mg/dL Low 40-60 94 Low Density Lipoprotein 115 mg/dL High Less Than 100 95 Laboratory test finding 04/22/2004 [facility] Alt (SGPT) 26 U/L 17- 63 [phone] PSA Screening 0.5 NG/ML 0-4 96 Liver Function Panel 11/17/2003 [facility] Albumin/Globulin Ratio 1.6 1-3 [phone] Albumin 3.9 GM/DL 3.6-5.4 Alkaline Phosphatase 55 [...] [address]: Matt Marti MD Acct: [id number] Unit: [id number] AGE: 72 Location: ED Re04/03/18 SEX: M Status: DEP ER SPEC: [id number] ROSCOE: 04/03/[address] [facility] [address]: Matt Marti MD REQ: [id number] RECD: 04/03/18 STATUS: LUDWIG AIKEN DR: Tiago Tam MD _ SOURCE: URINE SPDESC: ORDERED: Urine Culture Procedure Result Reported Site Urine Culture Final 04/05/18- 0946 ML No Growth (<1,000 CFU/mL) * - [facility] . END OF REPORT DEPARTMENT OF PATHOLOGY, [address] [place] [address] Miguel A Pino M.D. Director [facility] # [id number] 3 Because ethnic data is not always [...] (or dialysis) 4 SEE RESULT BELOW Name: LEFTY HARDEN : [address]: Romeo Chavarria DO Acct: [id number] Unit: [id number] AGE: 72 Location: ENDO Re12/10/17 SEX: M Status: REG REF SPEC: [id number] ROSCOE: 12/10/17- SUBM DR: Romeo Chavarria DO REQ: [id number] RECD: 12/10/17 STATUS: LAN AIKEN DR: Tiago [...] 1242 END OF REPORT DEPARTMENT OF PATHOLOGY, [address] [place] [address] Miguel A Pino M.D. Director [facility] # [id number] 5 Test Performed by: [facility] - [address] [address] 6 Normal Range 180 to 914 Indeterminate Range 145 to 180 Deficient Range <145 7 ADDITIONAL INFORMATION This test was developed and its performance characteristics determined by [facility] in a manner consistent with CLIA requirements. This test has not been cleared or approved by the U.S. Food and Drug Administration. Test Performed by: [facility] - [address] [address] 8 Serum levels of PSA measured using [...] 5 Kidney failure <15 (or dialysis) 21 [id number] 22 SEE RESULT BELOW Name: LEFTY HARDEN : [address]: Tiago Tam MD Acct: [id number] Unit: [id number] AGE: 70 Location: [facility] Re12/12/15 SEX: M Status: REG REF SPEC: [id number] ROSCOE: 12/12/15-101[address] [facility] [address]: Tiago Tam MD REQ: [id number] RECD: 12/12/15-4937 STATUS: SOUT _ ORDERED: LEVEL IV COMMENTS: [id number] FINAL DIAGNOSIS Skin, right mid forearm, excision: -- Scar, completely excised. -- No evidence of residual squamous cell carcinoma. COMMENT: The previous lesion at this site ([id number]) has been completely excised. CLINICAL HISTORY Presents [...] performed at Main Lab DEPARTMENT OF PATHOLOGY, [address] [place] [address] Miguel A Pino M.D. Director [facility] # [id number] 23 [id number] 24 SEE RESULT BELOW Name: LEFTY HARDEN : [address]: Tiago Tam MD Acct: [id number] Unit: [id number] AGE: 70 Location: [facility] Re10/17/15 SEX: M Status: REG REF SPEC: [id number] ROSCOE: 10/17/15-[address]: Tiago Tam MD REQ: [id number] RECD: 10/18/15-1255 STATUS: SOUT _ ORDERED: LEVEL IV COMMENTS: [id number] FINAL DIAGNOSIS Skin, right forearm, biopsy: -- [...] performed at Main Lab DEPARTMENT OF PATHOLOGY, [address] [place] [address] Miguel A Pino M.D. Director [facility] # [id number] 25 Serum levels of PSA measured using [...] [address]: Constantin Hernandez MD Acct: [id number] Unit: [id number] AGE: 69 Location: ENDO Re12/12/14 SEX: M Status: REG REF SPEC: [id number] ROSCOE: 12/12/14- [facility] DR: Constantin Hernandez MD REQ: [id number] RECD: 12/12/14-1449 STATUS: LAN AIKEN DR: Tiago [...] performed at Main Lab DEPARTMENT OF PATHOLOGY, [address] [place] [address] Miguel A Pino M.D. Director [facility] # [id number] 27 Desirable <150 Borderline high 150-199 High [...] The testing method is an immunoenzymatic assay marketing assistant by [employer] performed on Roxanne Michelle DXI 600. Do not interpret serum CEA levels as absolute evidence of the presence or the absence of malignant disease. Use serum CEA in conjunction with information from the clinical evaluation of the patient and other diagnostic procedures. 38 Therapeutic target for the treatment of diabetes Mellitus patients is <7% HBA1C, and in selective patients <6.0%.Please refer to [place] [employer] Diabetic care guidelines for further information. 39 RUN DATE: 10/03/13 [facility] LAB LIVE PAGE 1 RUN TIME: [address] [place], [place] [address] Specimen Inquiry Name: LEFTY HARDEN : [address]: Constantin Hernandez MD Acct: [id number] Unit: [id number] AGE: 68 Location: [facility] Re09/28/13 SEX: M Status: REG REF SPEC: [id number] ROSCOE: 09/28/13- SUBM DR: Constantin Hernandez MD REQ: [id number] RECD: 09/28/13 STATUS: LAN AIKEN DR: Tiago [...] performed at Main Lab DEPARTMENT OF PATHOLOGY, [facility] [place], [place] [address] Miguel A Pino M.D. Director [facility] # [id number] RUN DATE: 10/03/13 [facility] LAB LIVE PAGE 2 RUN TIME: 15[address] [facility] [place], [place] [address] Specimen Inquiry Patient: LEFTY HARDEN [id number] (Continued) CLINICAL HISTORY (Continued) CLINICAL HISTORY Screening colonoscopy for follow-up exam POST-OPERATIVE DIAGNOSIS Screening colonoscopy to cecum, very floppy left, prep fair - at base of cecum sessile mass, biopsied 5x. Cecal mass - await biopsy, polyps - await biopsy GROSS DESCRIPTION 1. The specimen is received in formalin labeled Gretchen Jensen Cecal Cap Mass, and consists of a [...] performed at Main Lab DEPARTMENT OF PATHOLOGY, [address] [place] [address] Miguel A Pino M.D. Director [facility] # [id number] 40 Because ethnic data is not always [...] Risk: LDL Greater than 189 mg/dL 43 FASTING 44 Serum levels of PSA measured using the [employer] DXI Hybritech immunoassay should not be interpreted as absolute evidence of the presence or absence of disease. The PSA value should be used in conjunction with other pertinent clinical diagnostic procedures. The values obtained with different assay methods or kits cannot be used interchangeably. 45 Microalbuminuria in a random sample is [...] normal population are 25-80 Test Performed by: [facility] Dpt of Lab Med and Pathology [address] [place] [address] Service Center Technician: French Blackwell III, M.D. 53 No bands [...] Test performed by immunoblot. Test Performed by: [facility] Dpt of Lab Med and Pathology [address] [place] [address] Service Center Technician: French Blackwell III, M.D. 56 * SERUM LEVELS OF PSA MEASURED USING THE [email or web address] ACCESS HYBRITECH IMMUNOASSAY SHOULD NOT BE INTERPRETED ABSOLUTE EVIDENCE OF THE PRESENCE OR ABSENCE OF DISEASE. THE PSA VALUE SHOULD BE USED IN CONJUNCTION WITH OTHER PERTINENT CLINICAL DIAGNOSTIC PROCEDURES. 57 Note change in reference range as of 11/25/07. The change was based on recommendations from the [place] [employer]. 58 MICROALBUMINURIA IN A RANDOM SAMPLE IS DEFINED : MICROALBUMIN/CREATININE RATIO OF 30-299 ug/mg. . 59 THERAPEUTIC TARGET FOR THE TREATMENT OF DIABETES MELLITUS PATIENTS IS <7% HBA1C, AND IN SELECTIVE PATIENTS <6.0%. PLEASE REFER TO [place] [employer] DIABETIC CARE GUIDELINES FOR FURTHER [...] change was based on recommendations from the [place] [employer]. 67 THERAPEUTIC TARGET FOR THE TREATMENT OF DIABETES MELLITUS PATIENTS IS <7% HBA1C, AND IN SELECTIVE PATIENTS <6.0%. PLEASE REFER TO [place] [employer] DIABETIC CARE GUIDELINES FOR FURTHER INFORMATION. 68 FASTING 69 THERAPEUTIC TARGET FOR THE TREATMENT OF DIABETES MELLITUS PATIENTS IS <7% HBA1C, AND IN SELECTIVE PATIENTS <6.0%. PLEASE REFER TO [place] [employer] DIABETIC CARE GUIDELINES FOR FURTHER INFORMATION. 70 Note change in reference range as of 11/25/07. The change was based on recommendations from the [place] [employer]. 71 CHOLESTEROL INTERPRETATION: Desirable: Less [...] change was based on recommendations from the [place] [employer]. 76 Please note change in reference range effective 07 . 77 THERAPEUTIC TARGET FOR THE TREATMENT OF DIABETES MELLITUS PATIENTS IS <7% HBA1C, AND IN SELECTIVE PATIENTS <6.0%. PLEASE REFER TO [place] [employer] DIABETIC CARE GUIDELINES FOR FURTHER [...] LEVELS OF PSA MEASURED USING THE [employer] ACCESS HYBRITECH IMMUNOASSAY SHOULD NOT BE INTERPRETED [...] SERUM LEVELS OF PSA MEASURED USING THE [email or web address] ACCESS HYBRITECH IMMUNOASSAY SHOULD NOT BE INTERPRETED [...] <0.1 Procedures Date Code Description Status 01/19/2018 31920 I & D Abscess Simple Completed 12/10/2017 [id number] Colonoscopy Completed 10/26/2017 [id number] Diabetic Retinal Eye Exam Completed 08/28/2017 60887 Electrocardiogram Complete Completed 04/20/2017 476129649 Diabetic Foot Exam Completed 04/20/2017 88843 Electrocardiogram Complete Completed 04/21/2016 06090 Electrocardiogram Complete Completed 12/11/2015 26308 Excise Malig Lesion .6-1CM Trunk/Arm/Leg Completed 10/17/2015 95611 Shave Skin Lesion .6-1CM Trunk/Arm/Leg Completed 11/13/2014 88989 Electrocardiogram Complete Completed 10/19/2013 22805 X-Ray Chest Two Views Completed 10/19/2013 80103 Electrocardiogram Complete Completed 11/15/2012 76960 Electrocardiogram Complete Completed 11/15/2012 56171 X-Ray Chest Two Views Completed 11/15/2012 66761 Destruction Premalignant Skin Lesions Completed 09/01/2012 50310 X-Ray Chest Two Views Completed 11/10/2011 35163 Electrocardiogram Complete Completed 11/10/2011 56003 Remove Impact Cerumen Requiring Instrument, Unilateral Completed 12/13/2010 72604 Visual Acuity Screening Test Completed 03/27/2010 30479 Electrocardiogram Complete Completed 01/01/2010 0 Payment Completed 09/27/2004 66773 Electrocardiogram Complete Completed 04/22/2004 06756 Remove Impact Cerumen Requiring Instrument, Unilateral Completed Encounters Type Date Location Provider Dx Diagnosis Office Visit 04/07/2018 Main Office Tiago Tam, N28.9 Disorder of kidney 9:15a M.D. and ureter, unspecified R80.9 Proteinuria, unspecified E11.21 Type 2 diabetes mellitus with diabetic nephropathy E11.65 Type 2 diabetes mellitus with hyperglycemia E83.51 Hypocalcemia R77.9 Abnormality of plasma protein, unspecified R60.1 Generalized edema Office Visit 02/24/2018 11:30a Main Office Taigo Tam, E11.21 Type 2 diabetes M.D. mellitus with diabetic nephropathy E11.65 Type 2 diabetes mellitus with hyperglycemia L72.3 Sebaceous cyst L03.313 Cellulitis of chest wall Office Visit 01/19/2018 4:20p Main Office Kailee Slaughter L03.313 Cellulitis of P.A. chest wall L03.313 Cellulitis of chest wall L72.3 Sebaceous cyst L72.3 Sebaceous cyst Office Visit 01/16/2018 9:30a Main Office Kailee Slaughter L03.313 Cellulitis of P.A. chest wall D17.1 Benign lipomatous neoplasm of skin, subcu of trunk Office Visit 01/09/2018 10:30a Main Office Leonila Marr L03.313 Cellulitis of PA chest wall D17.1 Benign lipomatous neoplasm of skin, subcu of trunk Office Visit 11/24/2017 9:45a Main Office Tiago Tam, E11.21 Type 2 diabetes M.D. 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 Office Visit 04/20/2017 11:45a Main Office Anel E11.65 Type 2 diabetes Cha Ordoñez mellitus with hyperglycemia E11.21 Type 2 diabetes mellitus with diabetic nephropathy F41.9 Anxiety disorder, unspecified E78.00 Pure hypercholesterolemia, unspecified K14.6 Glossodynia R23.4 Changes in skin texture Z23 Encounter for immunization E11.628 Type 2 diabetes mellitus with other skin complications Office Visit 10/14/2016 8:45a Main Office Anel E11.65 Type 2 diabetes Cha Ordoñez mellitus with hyperglycemia F41.9 Anxiety disorder, unspecified M25.50 Pain in unspecified joint E78.00 Pure hypercholesterolemia, unspecified Office Visit 08/16/2016 10:30a Main Office Leonila Marr [place] M25.512 Pain in left shoulder M25.541 Pain in joints of right hand Office Visit 07/22/2016 2:45p Main Office Yung Jose M25.512 Pain in left D.O. shoulder M25.541 [...] Encntr for oth proc for purpose oth than [facility] Z79.4 [facility] (current) use of insulin Z51.81 Encounter for therapeutic drug level monitoring Office Visit 12/25/2015 4:45p Main Office Tiago Tam C44.622 Squamous cell M.D. carcinoma skin/ right upper limb, inc shoulder F41.9 Anxiety disorder, unspecified E11.65 Type 2 diabetes mellitus with hyperglycemia Office Visit 12/11/2015 2:30p Main Office Tiago Tam C44.622 Squamous cell M.D. carcinoma skin/ right upper limb, inc shoulder E11.65 Type 2 diabetes mellitus with hyperglycemia F41.9 Anxiety disorder, unspecified Office Visit 10/16/2015 8:30a Main Office Dana Tam65 Type 2 diabetes Cha Ordoñez mellitus with hyperglycemia D48.5 Neoplasm of uncertain behavior of skin Z91.11 Patient's noncompliance with dietary regimen Z23 Encounter for immunization Office Visit 09/21/2015 9:45a Main Office Rigoberto Gallegos H60.8x1 Other otitis Cha Carney externa, right ear Office Visit 05/21/2015 10:45a Main Office Tiago Tam.65 Type 2 diabetes Cha Ordoñez mellitus with hyperglycemia Office Visit 02/14/2015 9:30a Main Office Lana Tam Type 2 diabetes Cha Ordoñez mellitus with hyperglycemia Z23 Encounter for immunization Z41.8 Encntr for oth proc for purpose oth than [facility] Office Visit 11/13/2014 3:30p Main Office Rhianna Tam.42 Diabetes W/ Renal Cha Ordoñez Manifestations Type II Uncontrolled 272.0 Hypercholesterolemia Pure 596.54 Neurogenic Bladder NOS V70.0 Examination General Medical Routine AT Health Care Facility Office Visit 06/16/2014 4:00p Main Office Alpesh Tam Diabetes W/ Renal Cha Ordoñez Manifestations Type II Uncontrolled 272.0 Hypercholesterolemia Pure V76.44 Screening For Malig Rodolfo Prostate V76.43 Screening Malignant Neoplasm Skin 596.54 Neurogenic Bladder NOS 250.02 Diabetes Mellitus W/O Compl Type II Or Unspec Type Uncontrol Office Visit 02/14/2014 9:45a Main Office Alpesh Tam Diabetes W/ Renal Cha Ordoñez Manifestations Type II Uncontrolled 272.0 Hypercholesterolemia Pure 702.19 Seborrheic Keratosis Other 600.01 Hypertrophy Benign Of Prostate With Urinary Obstruction V04.81 Need For Prophylactic Vaccination & Inoculation/Influenza 585.9 Chronic Kidney Disease Unspecified V07.2 Prophylactic Immunotherapy 250.02 Diabetes Mellitus W/O Compl Type II Or Unspec Type Uncontrol Office Visit 12/12/2013 4:00p Main Office Rigoberto Gallegos 599.70 Hematuria, Cha Carney Unspecified V12.72 History Personal Colonic Polyps Office Visit 11/28/2013 9:45a Main Office Tiago Tam, 600.01 Hypertrophy Benign M.D. Of Prostate With Urinary Obstruction V12.72 History Personal Colonic Polyps Office Visit 11/02/2013 11:40a Main Office Kailee Slaughter 709.9 Skin & Subcutaneous P.A. Tissue Disorders Unspec Office Visit 10/26/2013 4:45p Main Office Anel 250.42 Diabetes W/ Renal Cha Ordoñez Manifestations Type II Uncontrolled 235.2 Neoplasm Uncertain Stomach Intestine & Rectum 585.9 Chronic Kidney Disease Unspecified Office Visit 10/19/2013 12:55p Main Office Tiago Tam, V72.84 Examination M.D. Preoperative Unspec 796.2 Blood [...] Hypercholesterolemia Pure Office Visit 03/27/2010 Main Office Anel 272.0 Hypercholesterolemia Pure 4:00p Cha Ordoñez 250.00 Diabetes Mellitus W/O Compl Type II Or Unspec Controlled V65.3 Dietary Surveillance & Counseling Office Visit 11/26/2009 Main Office Anel 272.0 Hypercholesterolemia Pure 3:45p Cha Ordoñez 250.00 Diabetes Mellitus W/O Compl Type II Or Unspec Controlled V76.44 Screening For Malig Rodolfo Prostate 726.71 Bursitis Or Tendinitis Achilles Office Visit 07/25/2009 Main Office Marysecoff, 272.0 Hypercholesterolemia Pure 9:30a Cha Ordoñez 790.6 Abnormal Blood Chemistry Other Office Visit 12/12/2008 Main Office Marysecorafal, 790.6 Abnormal Blood Chemistry 1:15p Cha Ordoñez Other Office Visit 07/18/2008 Main Office Silcoff, 272.0 Hypercholesterolemia Pure 9:30a Cha Ordoñez 790.6 Abnormal Blood Chemistry Other Office Visit 04/24/2008 Main Office Silcoff, 272.0 Hypercholesterolemia Pure 2:00p Cha Ordoñez 300.02 Anxiety Disorder Generalized 530.81 Esophageal Reflux 278.02 Overweight V76.44 Screening For Malig Rodolfo Prostate V65.49 Counseling Other Spec Office Visit 03/16/2007 4:00p Main Office Tiago Tam, 374.9 Eyelid Disorder Cha Unspec 278.00 Obesity Unspec Office Visit 05/27/2006 Main Office Silcoff, 272.0 Hypercholesterolemia Pure 9:45a Cha Ordoñez 300.02 Anxiety Disorder Generalized 278.02 Overweight V76.51 Special Screening For Malignant Neoplasms Colon 530.81 Esophageal Reflux Office Visit 09/30/2005 Main Office Silcoff, 272.0 Hypercholesterolemia Pure 10:45a Cha Ordoñez 300.02 Anxiety Disorder Generalized V76.44 Screening For Malig Rodolfo Prostate 278.02 Overweight Office Visit 09/27/2004 Main Office Silcoff, 272.0 Hypercholesterolemia Pure 12:55p Cha Ordoñez 300.02 Anxiety Disorder Generalized 786.59 Pain Chest Other Office Visit 04/22/2004 Main Office Marysecoff, 272.0 Hypercholesterolemia Pure 2:00p Cha Ordoñez 300.02 Anxiety Disorder Generalized 702.19 Seborrheic Keratosis Other 110.4 Dermatophytosis Foot 380.4 Impacted Cerumen V76.44 Screening For Malig Rodolfo Prostate Office Visit 11/10/2003 9:30a Main Office Marysecorafla 110.1 Dermatophytosis Nail Cha Ordoñez Office Visit 07/19/2003 4:00p Main Office Anel 702.19 Seborrheic Keratosis Cha Ordoñez Other V76.51 Special Screening For Malignant Neoplasms Colon 783.0 Anorexia 285.9 Anemia Unspec Office Visit 05/29/2003 4:30p Main Office Tiago Tam M.D. 783.0 Anorexia V76.51 Special Screening For Malignant Neoplasms Colon Office Visit 04/19/2003 4:30p Main Office Tiago Tam, 300.02 Anxiety Disorder M.D. Generalized V65.5 Person W/ Feared Complaint In Whom No Diagnosis Was Made 783.21 Loss Of Weight Office Visit 03/28/2003 1:15p Main Office Tiago Tam M.D. 783.0 Anorexia 300.02 Anxiety Disorder Generalized Office Visit 03/06/2003 4:30p Main Office iTago Tam 300.02 Anxiety Disorder M.D. 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 at Main [facility]8604/07/2018 - Tiago Tam M.D.N28.9 Disorder of kidney and ureter, unspecifiedNew Xrays:Ultrasound, Kidney, Scheduled: 04/09/18Comments:Recent marked and diffuse edema w/ significant rise in Creatinine, also w/ high grade proteinuria and low serum protein and albumin on recent testing, in a pt w/ DM II w/ known nephropathy who has beennon compliant w/ his TAI inhibitor. Suspect dietary factors at play as well.Will continue w/ low dose furosemide for now, reassess early next week w/ labs in advance incl 24hr urine for total protein. We will also arrange renal u/s to r/o obstruction, see if kidneys appear small/ shrunken. Advised inc protein intake, shoot for 20-25 grams/meal tid for now, keep diet low in salt. Stay active.R80.9 Proteinuria, unspecifiedFollow up:RTO early next week. You should consume 20-25 grams of protein/meal, 3x/day, at least for the time being.E11.21 Type 2 diabetes mellitus with diabetic nephropathyComments:non compliant w/ ramipril wc he will stay off of for now as we sort things out.E11.65 Type 2 diabetes mellitus with geberuinvvoajX88.51 AkrpddmosbktX62.9 Abnormality of plasma protein, lcdygyborqdO54.1 Generalized edema
--- OUTSIDE RECORDS SUMMARY | 2018-04-11 13:08 | XMS REPORT | Continuity of Care Document ---
:1945 External Reference #:[id number] Author Name Yung Jose D.O. Address [address] [place] [address] Care Team Providers Name Role Phone HCP given Primary Care Physician Unavailable Payers Type Date Identification Numbers Payment Provider Subscriber Policy Number: [id number] [facility] Lefty Harden PayID: [id number] [address] [place] [address] Policy Number: [id number] [facility] Lefty Harden PayID: [id number] [address] [place] [address] Advance Directives Description No Information Available Problems Date Description Provider Status Onset: 11/10/2011 Pure hypercholesterolemia Tiago Tam M.D. Active Onset: 11/10/2011 Type 2 diabetes mellitus Tiago Tam M.D. Active Onset: 03/18/2013 Type 2 diabetes mellitus Tiago Tam M.D. Active Onset: 05/24/2016 Chronic rhinitis Yung Jose D.O. Active Family History Date Family Member(s) Problem(s) Comments Father Heart Disease : (age 60 Father due to [place] smoker Years) Father Hypertension ? Father Hypercholesterolemia [...] Non Smoker Enjoy Exercising Enjoys exercising [employer]id [employer] Allergies, Adverse Reactions, Alerts Date Description Reaction Status Severity Comments 03/27/2010 No Known Drug Allergy Active Medications Medication Date Status Form Strength Qnty SIG Indications Ordering Provider Ondansetron Hx Tablets 4mg 10tabs 1 by mouth Silcorafal, HCL 018 - every 4 Tiago, hours as M.D. 019 needed for nausea Farxiga Active Tablets 5mg 90tabs 1 tab by E11.65 Silli, 018 mouth Tiago, every day M.D. for blood sugar control E11.21 E11.65 Lantus 12/26/2017 Active Solution 100Unit/ML 15ml inject E11.65 Anel , Solostar Pen-Inject 30units Tiago, once daily, M.D. at same time every day; for blood sugar control Freestyle 09/28/2017 Active Misc 100un use E11.65 Silcoff, Lancets its 1-2x/day Tiago for blood M.D. sugar monitoring Freestyle 09/18/2017 Active Strips 100un use 2x/day E11.65 Silcoff, Lite Test its as directed Tiago for M.D. monitoring blood sugar Pen [place] 08/28/2017 Active Misc 31G X 8 mm 100un use as E11.65 Silli, its directed Tiago, (once/day) M.D. for insulin administrat ion Flonase 05/24/2016 Active Suspension 50mcg/Act 47.40 2 sprays J31.0 Sopchak, Allergy 0ml twice a day Yung, Relief until D.O. better. Clonazepam 12/25/2015 Active Tablets 0.5mg 60tab 1/2-1 by F41.9 Anel , s mouth Tiago, 3x/day as M.D. needed for anxiety Glipizide ER 05/21/2015 Active Tablets ER 5mg 180ta take 1 E11.65 Silcoff, 24HR bs tablet by Tiago, mouth M.D. 2x/day to lower blood sugar Tamsulosin 02/07/2015 Active Capsules 0.4mg daily Jaysejordan, CAS Cartagena MD Freestyle 28G 09/20/2014 Active 100un Use as Silcoff, Lancets its Directed Tiago, 1-2 Times A M.D. Day For Monitoring Blood Sugar Glucometer 10/19/2013 Active 1unit use as E11.65 Silcoff, s directed Cha Ordoñez Ramipril 03/18/2013 Active Capsules 2.5mg 90cap take 1 E11.21 Silcoff, s capsule Tiago, every M.D. morning for kidney protection Atorvastatin 06/02/2012 Active Tablets 40mg 90tab 1 by mouth Anel, Calcium s every day Tiago, for high M.D. cholesterol (to replace crestor) Aspirin Ec 04/24/[address] 81mg 1 po qd for Silcoff, heart Tiago, disease M.D. prevention Tradjenta 02/24/2018 Hx Tablets 5mg 90tab 1 by mouth E11.65 Silcoff, - s every day Tiago, 03/05/2018 for blood M.D. sugar control E11.21 E11.65 Amoxicillin/Clavulanate 01/09/2018 Hx Tablets 875-125mg 20tabs 1 tab L03.313 Silcoff, Potassium - by Tiago, 01/19/2018 mouth M.D. twice a day x10 [...] every day; for blood sugar contro l Polatus Solostar 08/28/2017 Hx Solution 100Unit/ML 15ml inject [...] needed for nasal draina ge Saline Nasal [place] 05/24/2016 Hx Solution 0.65% 132ml Use 5 [...] ed for blood sugar contro l Pen [place] 10/16/2015 Hx Misc 31G X 5 mm 25units use as E11.65 Marysecorafal , - direct Tiago, 08/28/2017 ed for M.D. admini strati on of Bydure on Neomycin/Polymyxin/[place] 09/21/2015 Hx Suspensi 3.5-19422- 10ml 4-5 H60.8x1 Rigoberto cortisone (Otic) - on 1 drops A. 10/01/2015 in [facility], right M.D. ear qid x 7days Metformin HCL ER 05/20/2015 Hx Tablets 500mg 270tabs 2 by E11.65 Anel, - ER 24HR mouth Tiago, 02/24/2018 every M.D. mornin g and 1 every evenin g; for blood sugar contro l E11.21 E11.65 Glipizide ER 02/14/2015 - Hx Tablets ER 5mg 90tabs take 1 E11. Marysecorafal, 05/21/2015 24HR tablet by shey Ordoñez every M.D. morning to lower blood sugar Metformin HCL 02/14/2015 - Hx Tablets ER 500mg 360tabs take four E11.65 Silcoff, ER 05/20/2015 24HR tablets by Tiago mouth every M.D. evening; may split to 2 [...] - Hx Tablets 0.5mg 15tabs 1/2-1 by F41.9 Silcoff, 12/24/2015 mouth three Cha Ordoñez times a day as needed for anxiety Benzonatate 09/06/2012 - Hx Capsules 100mg 30caps [...] Solution 100-10 100ml 1-2 tsps q4-6 786.2 Silcoff deine 09/10/2011 mg/5ML hrs, prn Cha Ordoñez Simvastatin 12/13/2010 - Hx Tablets 40mg 90tabs take 1 tablet 272.0 Silcoff, 11/10/2011 by mouth Tiago, every evening M.D. for high cholesterol Omeprazole 04/24/2008 - Hx [...] qd For 272.0 Silcoff, 04/24/2008 Heart Disease Agustín Ordoñez M.D. Sporanox 11/10/2003 - Hx Capsules [...] Capsules 40mg 1 po bid Unknown 04/19/2003 [place] - Hx Capsules 300mg 1 po tid Unknown Carbonate 05/27/2006 Lipitor - Hx Tablets 20mg 90tabs 1 po qd with Silcoff, 05/05/2005 supper for high Cha Ordoñez cholesterol Immunizations CPT Code Status Date Vaccine Lot # [id number] Given 01/20/2018 Influenza Vaccine, Inactivated, Subunit, [id number] Adjuvanted, For Intrmusc 14366 Given 04/20/2017 Influenza Virus Vaccine, Quadrivalent, Split, [id number] Preservative Free 44728 Given 04/21/2016 Influenza Virus Vaccine, Quadrivalent, Split, [id number] Preservative Free 58029 Given 11/23/2015 Adacel or Boostrix, TDaP [id number] 33073 Given 10/16/2015 Prevnar 13 [id number] 67915 Given 02/14/2015 Influenza Vaccine Split Virus Preservative Free Im [id number] Use 33638 Given 02/14/2014 Flu, Split Virus 3Yrs [id number] 96203 Given 03/18/2013 Flu, Split Virus 3Yrs [id number] 64540 Given 11/10/2011 Pneumococcal Immunization [id number] Refused 08/28/2017 Shingrix Zoster (Shingles) Vaccine (HZV) Recomb,Subnit,Adjuvanted 40915 Refused 10/16/2015 Adacel or Boostrix, TDaP [id number] Refused 11/13/2014 Prevnar 13 [id number] Refused 04/24/2008 Zostavax [id number] Refused 04/24/2008 Adacel or Boostrix, TDaP Vital Signs Date Vital Result Comment 02/24/2018 11:54am BP Systolic 134 mmHg BP [...] Date Facility Test Result H/L Range Note CBC Auto Diff 04/03/2018 [facility] White Blood 7.4 10^3/uL N 3.5- 10.8 [phone] Count Red Blood Count 5.54 10^6/uL High 4.00-5.40 [...] % Nucleated Red Blood Cells % 0 Urinalysis Profile 04/03/2018 [facility] Urine Color Yellow [phone] Urine Appearance Cloudy Urine Specific [place] 1.025 N 1.010-1.030 Urine pH 5.0 N [...] Absent Urine Hyaline Casts Present Abnormal Absent Comp Metabolic Panel 04/03/2018 [facility] Sodium 138 mmol/L N 135- 145 [phone] Potassium 3.6 mmol/L N 3.5-5.0 Chloride 106 [...] Egfr Non- 23.6 >60 Egfr 28.5 >60 1 Laboratory test 04/03/2018 [facility] TSH (Thyroid 4.79 N 0.34-5.60 finding [phone] Stim Horm) mcIU/mL Urine Culture And 04/03/2018 [facility] Urine Culture SEE RESULT 2 Sensitivities [phone] BELOW Laboratory test 02/24/2018 [facility] House Hemoglobin A1c 7.9 finding Laboratory test 12/10/2017 [facility] Surgical SEE RESULT 3 finding [phone] Pathology BELOW Laboratory test 11/24/2017 In House Hemoglobin A1c 8.0 finding Laboratory test 09/28/2017 [facility] Fructosamine 279 mcmol/L 200 - 285 4 finding [phone] Vitamin B12 752 pg/mL N 180-087 5 Methylmalonic Acid Mma 0.13 nmol/mL <=0.40 6 Laboratory test 08/28/2017 In House Hemoglobin A1c 8.1 finding Laboratory test 04/20/2017 [facility] PSA Screening 0.815 ng/mL 0- 4.0 7 finding [phone] Laboratory test 04/20/2017 [facility] Vitamin B12 262 pg/mL N 180- 913 8 finding [phone] Laboratory test 04/20/2017 In House Hemoglobin A1c 8.5 finding Laboratory test 04/14/2017 [facility] Alt (SGPT) 19 U/L N 7-52 finding [phone] Lipid Profile 04/14/2017 [facility] Triglycerides 97 mg/dL 9 (Trig/Chol/HDL) [phone] Cholesterol 122 mg/dL 10 HDL Cholesterol 30.5 mg/dL 11 LDL Cholesterol 72 mg/dL 12 Urine Microalbumin 04/14/2017 [facility] Ur Microalbumin 60.3 mg/L Random [phone] (mg/L) Urine Creatinine 125.15 mg/dL Urine Microalbumin/Creatinine 48.1 ug/mg High <31 Laboratory test 10/14/2016 In House Hemoglobin A1c 7.2 finding Laboratory test 04/21/2016 [facility] Alt (SGPT) 18 U/L N 7-52 13, 14 finding [phone] Lipid Profile 04/21/2016 [facility] Triglycerides 68 mg/dL N 15 (Trig/Chol/HDL) [phone] Cholesterol 111 mg/dL N 16 HDL Cholesterol 29.5 mg/dL N 17 LDL Cholesterol 68 mg/dL N 18 Basic Metabolic Panel 04/21/2016 [facility] Sodium 138 mmol/L N 133- 145 [phone] Potassium 4.4 mmol/L N 3.5-5.0 Chloride 106 mmol/L N 101-111 Co2 Carbon Dioxide 28 mmol/L N 22-32 Anion Gap 4 mmol/L N 2-11 Glucose 134 mg/dL High 70-100 Blood Urea Nitrogen 18 mg/dL N 6-24 Creatinine 1.09 mg/dL N 0.67-1.17 BUN/Creatinine Ratio 16.5 N 8-20 Calcium 9.3 mg/dL N 8.6-10.3 Egfr Non- 66.7 N >60 Egfr 85.8 N >60 19 Urine Microalbumin 04/21/2016 [facility] Urine Creatinine 197.10 mg/dL N Random [phone] Ur Microalbumin (mg/L) 35.5 mg/L N Urine Microalbumin/Creatinine 18.0 ug/mg N <31 Laboratory test 04/21/2016 In House Hemoglobin A1c 7.6 finding Laboratory test 12/12/2015 [facility] Surgical Pathology SEE RESULT 20, 21 finding [phone] BELOW Laboratory test 10/17/2015 [facility] Surgical Pathology SEE RESULT 22, 23 finding [phone] BELOW Laboratory test 10/16/2015 In House Hemoglobin A1c 7.2 finding Urine Microalbumin 05/21/2015 [facility] Ur Microalbumin 41.0 mg/L N Random [phone] (mg/L) Urine Creatinine 148.81 mg/dL N Urine Microalbumin/Creatinine 27.5 ug/mg N <31 Laboratory test 05/21/2015 [facility] PSA Screening 0.803 ng/mL N 0- 4.0 24 finding [phone] Laboratory test 05/21/2015 In House Hemoglobin A1c 7.8 finding Laboratory test 02/14/2015 In House Hemoglobin A1c 8.8 finding Laboratory test 12/12/2014 [facility] Surgical SEE RESULT 25 finding [phone] Pathology BELOW Laboratory test 11/16/2014 [facility] Ferritin 42.3 ng/mL N 24-336 finding [phone] Liver Function 11/16/2014 [facility] Total Protein 6.6 g/dL N 6.4- 8.9 Panel [phone] Albumin 4.3 g/dL N 3.2-5.2 Globulin 2.3 g/dL N 2-4 Albumin/Globulin Ratio 1.9 N 1-3 Total Bilirubin 0.60 mg/dL N 0.2-1.0 Direct Bilirubin 0.10 mg/dL N 0.03-0.18 Indirect Bilirubin 0.5 mg/dL N 0.3-1.0 Alkaline Phosphatase 56 U/L N 34-104 Alt 20 U/L N 7-52 Ast 17 U/L N 13-39 CBC Auto Diff 11/16/2014 [facility] White Blood Count 6.7 10^3/uL N 4.8-10.8 [phone] Red Blood Count 5.20 10^6/uL N 4.0-5.4 [...] Blood Cells % 0.2 N Laboratory test 11/13/2014 In House Hemoglobin A1c 8.6 finding Basic Metabolic Panel 11/13/2014 [facility] Sodium 138 mmol/L N 133- 145 [phone] Potassium 4.1 mmol/L N 3.5-5.0 Chloride 106 mmol/L N 101-111 Co2 Carbon Dioxide 27 mmol/L N 22-32 Anion Gap 5 mmol/L N 2-11 Glucose 128 mg/dL High 70-100 Blood Urea Nitrogen 20 mg/dL N 6-24 Creatinine 0.98 mg/dL N 0.67-1.17 BUN/Creatinine Ratio 20.4 High 8-20 Calcium 9.4 mg/dL N 8.6-10.3 Egfr Non- 75.6 N >60 Egfr 97.2 N >60 26 Lipid Profile 11/13/2014 [facility] Triglycerides 116 mg/dL N 27 (Trig/Chol/HDL) [phone] Cholesterol 137 mg/dL N 28 HDL Cholesterol 29.9 mg/dL N 29 LDL Cholesterol 84 mg/dL N 30 Laboratory test finding 11/13/2014 [facility] Alt (SGPT) 17 U/L N 7- 52 [phone] Laboratory test finding 06/16/2014 In House Hemoglobin A1c 8.9 Laboratory test finding 02/14/2014 In House Hemoglobin A1c 7.6 Lipid Profile 02/14/2014 [facility] Triglycerides 100 mg/dL N 31 (Trig/Chol/HDL) [phone] Cholesterol 129 mg/dL N 32 HDL Cholesterol 32.4 mg/dL N 33 LDL Cholesterol 77 mg/dL N 34 Urine Microalbumin 02/14/2014 [facility] Ur Microalbumin 29.0 mg/L N Random [phone] (mg/L) Urine Creatinine 154.78 mg/dL N Urine Microalbumin/Creatinine 18.7 N Less Than 31 Urine Micro Inhouse 12/12/2013 In House Ua WBC - Ua RBC 1-2 Ua Casts - Ua Epi - Ua Other - Ua Glucose - Ua Bilirubin - Ua Ketones - Ua Specific [place] 1.020 Ua Blood mod Ua PH 6.0 Ua Protein tr Ua Urobilinogen - Ua Nitrite - Ua Leukocytes - Urinalysis Profile 11/21/2013 [facility] Urine Color Yellow N [phone] Urine Appearance Clear N Urine Specific [place] 1.017 N 1.010-1.030 Urine pH 5.0 N [...] Quantitative 199 finding CBC Auto Diff 10/04/2013 [facility] White Blood Count 6.3 N 4.8-10. [phone] 10^3/uL 8 Red Blood Count 5.22 10^6/uL [...] % 0 N Comp Metabolic Panel 10/04/2013 [facility] Sodium 140 mmol/L N 133- 145 [phone] Potassium 4.3 mmol/L N 3.7-5.6 Chloride 107 [...] 65.0 N >60 Egfr 83.6 N >60 35 Liver Function 10/04/2013 [facility] Direct Bilirubin 0.10 mg/dL N 0.03-0.18 Panel [phone] Indirect Bilirubin 0.5 mg/dL N 0.3-1.0 Laboratory 10/04/2013 [facility] Carcinoembryonic 7.1 ng/mL High 0.1- 5.0 36 test finding [phone] Antigen Hemoglobin A1c 9.1 % High Less than 6.0 37 Surgical Pathology 09/28/2013 [facility] S RUN DATE: 38 [phone] 10/03/ <SEE NOTE> Laboratory test 03/18/2013 In House Hemoglobin A1c 8.0 finding Occult 11/18/2012 In House Misc neg x3 Blood,Triple Basic Metabolic 11/16/2012 [facility] Sodium 138 mmol/L 133-145 Panel [phone] Potassium 4.3 mmol/L 3.5-5.0 Chloride 105 mmol/L 101-111 Co2 Carbon Dioxide 28.0 mmol/L 22-32 Anion Gap 5.0 mmol/L 2-11 Glucose 141 mg/dL High 70-100 Blood Urea Nitrogen 21 mg/dL 6-24 Creatinine 1.00 mg/dL 0.50-1.40 BUN/Creatinine Ratio 21.0 High 8-20 Calcium 9.3 mg/dL 8.1-9.9 Egfr Non- 74.3 >60 Egfr 95.6 >60 39 Lipid Profile 11/16/2012 [facility] Triglycerides 74 mg/dL 40-200 (Trig/Chol/HDL) [phone] Cholesterol 153 mg/dL Less than 200 HDL Cholesterol 32 mg/dL Low 40-60 40 Cholesterol/HDL Ratio 4.8 Average High 1-4.44 LDL Cholesterol 106.2 High Less Than 100 41 Laboratory test 11/16/2012 [facility] Alt 23 U/L 14-54 42 finding [phone] CBC With Manual 11/16/2012 [facility] White Blood 6.4 10^3/uL 4.8- 10.8 Diff [phone] Count Red Blood Count 5.07 10^6/uL 4.0-5.4 [...] Lymph % 1 % 0-6 Hypochromasia 1+ [place] Cells 2+ Laboratory test 11/16/2012 [facility] PSA Screening 0.9 ng/mL 0-4.0 43 finding [phone] Urine Microalbumin 11/15/2012 [facility] Ur Microalbumin 86.0 mg/L 44 Random [phone] (mg/L) Urine Creatinine 233.4 mg/dL Urine Microalbumin/Creatinine 36.8 High Less Than 31 Laboratory test finding 11/15/2012 In House Hemoglobin A1c 7.6 Laboratory test finding 05/31/2012 In House Hemoglobin A1c 7.3 Lipid Profile 05/26/2012 [facility] Triglycerides 113 mg/dL 40-200 (Trig/Chol/HDL) [phone] Cholesterol 153 mg/dL Less than 200 HDL Cholesterol 34 mg/dL Low 40-60 45 Cholesterol/HDL Ratio 4.5 Average High 1-4.44 LDL Cholesterol 96.4 mg/dL Less Than 100 46 Laboratory test finding 05/26/2012 [facility] 26 U/L 14-54 [phone] Laboratory test finding 11/10/2011 [facility] Alt (SGPT) 18 U/L 17- 63 [phone] Lipid Profile 11/10/2011 [facility] Triglyceride 127 mg/dL 40-200 (Trig/Chol/HDL) [phone] Cholesterol 200 mg/dL Less Than 200 47 High Density Lipoprotein 29 mg/dL Low 40-60 48 Cholesterol/HDL Ratio 6.90 AVERAGE High 1-4.97 Low Density Lipoprotein 146 mg/dL High Less Than 100 49 Urine Microalbumin 11/10/2011 [facility] Microalbumin (MG/L) 45.0 mg/L Random [phone] Urine Creatinine 134.4 mg/dL Tesfaye Alb/Creatinine Ratio 33.5 UG/MG High Less Than 30 50 Laboratory test 11/10/2011 In House Hemoglobin A1c 6.7 finding Laboratory test 12/13/2010 In House Hemoglobin A1c 6.8 finding Laboratory test 09/09/2010 [facility] Erythrocyte Sed Rate 4 MM/HR 0 -40 finding [phone] CPK (Creatine Kinase) 233 U/L High 0-200 C Reactive Protein < 0.5 mg/dL Less Than 0.5 Vitamin D, 25 09/09/2010 [facility] 25-Hydroxy Vitamin D2 <4.0 ng/mL () Hydroxy [phone] 25-Hydroxy Vitamin D3 28 ng/mL () 25-Hydroxy Vitamin D Total 28 ng/mL () 51 CBC Auto Diff 09/09/2010 [facility] White Blood Count 6.4 CUMM 4.8- 10.8 [phone] Red Cell Count 5.12 CUMM 4.6-6.2 Hemoglobin [...] Abs Basophils 0 0-0.2 Laboratory test 09/09/2010 [facility] TSH 1.81 MIU/ML 0.34-5.60 finding [phone] Lyme Western Blot 09/09/2010 [facility] Lyme Igg Negative Negative Specialty [phone] Western Blot Lyme Igg Bands Detected No bands detecte <SEE NOTE> kDa () 52 Lyme Igm Western Blot Negative Negative Lyme Igm Bands Detected No bands detecte <SEE NOTE> kDa () 53 Lyme Disease Interpretation . () 54 Laboratory test finding 03/27/2010 In House Hemoglobin A1c 6.8 Laboratory test finding 11/26/2009 [facility] PSA Screening 0.78 NG/ML 0-4 55 [phone] Glucose 55 mg/dL Low 70-100 56 Urine Microalbumin 11/26/2009 [facility] Microalbumin (MG/L) 38.0 mg/L Random [phone] Urine Creatinine 125.48 mg/dL Tesfaye Alb/Creatinine Ratio 30.2 UG/MG Less Than 30 57 Laboratory test finding 11/26/2009 [facility] Alt (SGPT) 23 U/L 17- 78 [phone] Hemoglobin A1c 7.1 % High Less Than 6.0 58 Lipid Profile 11/26/2009 [facility] Triglyceride 102 mg/dL 40-200 (Trig/Chol/HDL) [phone] Cholesterol 167 mg/dL Less Than 200 59 High Density Lipoprotein 27 mg/dL Low 40-60 60 Cholesterol/HDL Ratio 6.19 AVERAGE High 1-4.97 Low Density Lipoprotein 120 mg/dL High Less Than 100 61 Lipid Profile 07/25/2009 [facility] Triglyceride 66 mg/dL 40-200 (Trig/Chol/HDL) [phone] Cholesterol 175 mg/dL Less Than 200 62 High Density Lipoprotein 27 mg/dL Low 40-60 63 Cholesterol/HDL Ratio 6.48 AVERAGE High 1-4.97 Low Density Lipoprotein 135 mg/dL High Less Than 100 64 Laboratory test finding 07/25/2009 [facility] Alt (SGPT) 17 U/L 17- 87 [phone] Glucose 117 mg/dL High 70-100 65 Hemoglobin A1c 6.9 % High Less Than 6.0 66 Laboratory test 12/13/2008 [facility] Hemoglobin A1c 7.0 % High Less Than 67, 68 finding [phone] 6.0 Glucose 109 mg/dL High 70-100 69 Lipid Profile 07/17/2008 [facility] Triglyceride 114 mg/dL 40-200 (Trig/Chol/HDL) [phone] Cholesterol 161 mg/dL Less Than 200 70 High Density Lipoprotein 29 mg/dL Low 40-60 71 Cholesterol/HDL Ratio 5.55 AVERAGE High 1-4.97 Low Density Lipoprotein 109 mg/dL High Less Than 100 72 Liver Function Panel 07/17/2008 [facility] Total Protein 7.0 GM/DL 6.2-8.4 [phone] Albumin 4.0 GM/DL 3.2-5.2 Globulin 3.0 GM/DL 2-4 Albumin/Globulin Ratio 1.3 1-3 Bilirubin Total 0.9 mg/dL 0.4-1.5 Bilirubin Direct 0.2 mg/dL 0.1-0.5 Indirect Bilirubin 0.7 mg/dL 0.1-0.75 Alkaline Phosphatase 64 U/L 39-117 Alt (SGPT) 32 U/L 17-63 Ast (Sgot) 29 U/L 12-42 Basic Metabolic Panel 07/17/2008 [facility] Sodium 139 mmol/L 135- 145 [phone] Potassium 3.6 mmol/L 3.5-5.0 Chloride 106 mmol/L 101-111 Co2 (Carbon Dioxide) 28.0 mmol/L 22-32 Anion Gap 5.0 mmol/L 2-11 73 Glucose 133 mg/dL High 70-100 74 BUN 22 mg/dL 6-24 Creatinine 1.11 mg/dL 0.50-1.40 One Over Creatinine 0.90 BUN/Creatinine Ratio 19.8 8-20 Calcium 9.5 mg/dL 8.1-9.9 75 Laboratory test 07/17/2008 [facility] Hemoglobin A1c 7.2 % High <6.0 76 finding [phone] Lipid Profile 04/24/2008 [facility] Triglyceride 118 mg/dL 40-200 (Trig/Chol/HDL) [phone] Cholesterol 236 mg/dL High Less Than 200 77 High Density Lipoprotein 31 mg/dL Low 40-60 78 Cholesterol/HDL Ratio 7.61 AVERAGE High 1-4.97 Low Density Lipoprotein 181 mg/dL High Less Than 100 79 Liver Function Panel 04/24/2008 [facility] Total Protein 5.8 GM/DL Low 6.2-8.3 [phone] Albumin 3.7 GM/DL 3.2-5.2 Globulin 2.1 GM/DL 2-4 Albumin/Globulin Ratio 1.8 1-3 Bilirubin Total 0.7 mg/dL 0.4-1.5 Bilirubin Direct < 0.1 mg/dL Low 0.1-0.5 Indirect Bilirubin (SEE NOTE) mg/dL 0.1-0.75 80 Alkaline Phosphatase 63 U/L 39-117 Alt (SGPT) 22 U/L 17-63 Ast (Sgot) 20 U/L 12-42 Laboratory test 04/24/2008 [facility] PSA Screening 0.67 NG/ML 0-4 finding [phone] Lipid Profile 05/27/2006 [facility] Cholesterol/HDL 6.00 AVERAGE High 1-4.97 (Trig/Chol/HDL) [phone] Ratio Cholesterol 180 mg/dL Less Than 200 81 Triglyceride 136 mg/dL 40-200 High Density Lipoprotein 30 mg/dL Low 40-60 82 Low Density Lipoprotein 123 mg/dL High Less Than 100 83 Laboratory test 05/27/2006 [facility] Alt (SGPT) 28 U/L 17-63 finding [phone] Lipid Profile 2005 [facility] Cholesterol/HD 5.39 AVERAGE High 1-4.97 (Trig/Chol/HDL) [phone] L Ratio Cholesterol 167 mg/dL Less Than 200 84 Triglyceride 152 mg/dL 40-200 High Density Lipoprotein 31 mg/dL Low 40-60 85 Low Density Lipoprotein 106 mg/dL High Less Than 100 86 Laboratory test finding 2005 [facility] Alt (SGPT) 20 U/L 17- 63 [phone] PSA Screening 0.81 NG/ML 0.00-4.00 87 Laboratory test 09/27/2004 [facility] TSH 1.64 MIU/ML 0.34-5.60 finding [phone] Basic Metabolic Panel 09/27/2004 [facility] Anion Gap 7.0 mmol/L 2- 11 88 [phone] BUN 16 mg/dL 6-24 Calcium 9.6 mg/dL 8.7-10.2 Chloride 106 mmol/L 101-111 Co2 (Carbon Dioxide) 28.0 mmol/L 22-32 Creatinine 1.1 mg/dL 0.5-1.4 Glucose 97 mg/dL 70-105 Potassium 4.6 mmol/L 3.5-5.0 Sodium 141 mmol/L 135-145 BUN/Creatinine Ratio 14.5 8-20 Laboratory test 09/27/2004 [facility] [place] 0.8 mmol/L 0.5-1.5 finding [phone] Thyroxine Free 09/27/2004 [facility] Free Thyroxine 0.55 ng/dL Low 0.58-1.64 [phone] Laboratory test 09/27/2004 [facility] Alt (SGPT) 21 U/L finding [phone] Lipid Profile 09/27/2004 [facility] Cholesterol/HD 5.61 AVERAGE High 1-4.97 (Trig/Chol/HDL) [phone] L Ratio Cholesterol 174 mg/dL Less Than 200 89 Triglyceride 113 mg/dL 40-200 High Density Lipoprotein 31 mg/dL Low 40-60 90 Low Density Lipoprotein 120 mg/dL High Less Than 100 91 Lipid Profile 04/22/2004 [facility] Cholesterol/HDL 4.91 1-4.97 (Trig/Chol/HDL) [phone] Ratio AVERAGE Cholesterol 172 mg/dL Less Than 200 92 Triglyceride 109 mg/dL 40-200 High Density Lipoprotein 35 mg/dL Low 40-60 93 Low Density Lipoprotein 115 mg/dL High Less Than 100 94 Laboratory test finding 04/22/2004 [facility] Alt (SGPT) 26 U/L 63 [phone] PSA Screening 0.5 NG/ML 0-4 95 Liver Function Panel 11/17/2003 [facility] Albumin/Globulin Ratio 1.6 1-3 [phone] Albumin 3.9 GM/DL 3.6-5.4 Alkaline Phosphatase 55 U/L 39-117 Alt (SGPT) 16 U/L Low 17-63 Ast (Sgot) 19 U/L 12-42 Bilirubin Direct < 0.1 mg/dL Low 0.1-0.5 Globulin 2.4 GM/DL 2-4 96 Bilirubin Total 0.7 mg/dL 0.4-1.5 Total Protein [...] [address]: Matt Marti MD Acct: [id number] Unit: [id number] AGE: 72 Location: ED Re04/03/18 SEX: M Status: DEP ER SPEC: [id number] ROSCOE: 04/03/[address]: Matt Marti MD REQ: [id number] RECD: 04/03/18 STATUS: LUDWIG AIKEN DR: Tiago Tam MD _ SOURCE: URINE SPDESC: ORDERED: Urine Culture Procedure Result Reported Site Urine Culture Final 04/05/18945 ML No Growth (<1,000 CFU/mL) * ML - Main Lab . END OF REPORT DEPARTMENT OF PATHOLOGY, [address] [place] [address] Miguel A Pino M.D. Director [facility] # [id number] 3 SEE RESULT BELOW Name: LEFTY HARDEN DOB: [address]: Romeo Chavarria DO Acct: [id number] Unit: [id number] AGE: 72 Location: ENDO Re12/10/17 SEX: M Status: REG REF SPEC: [id number] ROSCOE: 12/10/17- SUBM DR: Romeo Chavarria DO REQ: [id number] RECD: 12/10/17-1324 STATUS: LAN AIKEN DR: Tiago Tam MD [...] 1242 END OF REPORT DEPARTMENT OF PATHOLOGY, [address] [place] [address] Miguel A Pino M.D. Director [facility] # [id number] 4 Test Performed by: [facility] - [address] [id number] 5 Normal Range 180 to 914 Indeterminate Range 145 to 180 Deficient Range <145 6 ADDITIONAL INFORMATION This test was developed and its performance characteristics determined by [facility] in a manner consistent with CLIA requirements. This test has not been cleared or approved by the U.S. Food and Drug Administration. Test Performed by: [facility] - [address] [address] 7 Serum levels of PSA measured using the [employer] [place] DXI Hybritech immunoassay should not be interpreted as absolute evidence of the presence or absence of disease. The PSA value should be used in conjunction with other pertinent clinical diagnostic procedures. The values obtained with different assay methods or kits cannot be used interchangeably. 8 Normal Range 180 to 914 Indeterminate Range 145 to 180 Deficient Range <145 9 Desirable: <150 Borderline High: 150-199 High: 200-499 Very High: >500 10 Desirable: <200 Borderline High: 200-239 High: >239 11 Low: <40 Desirable: 40-60 High: >60 12 Desirable: <100 Near Optimal: 100-129 Borderline High: 130-159 High: 160-189 Very High: >189 13 FASTING 12 HOUR 14 FASTING 12 HOUR 15 Desirable <150 Borderline high 150-199 High 200-499 Very High >500 16 Desirable <200 Borderline high 200-239 High >239 17 Low <40 Desirable: 40-60 High: >60 18 Desirable: <100 mg/dL Near Optimal: 100-129 mg/dL Borderline High: 130-159 mg/dL High: 160-189 mg/dL Very High: >189 mg/dL 19 Because ethnic data is not always readily [...] 15-29 5 Kidney failure <15 (or dialysis) 20 [id number] 21 SEE RESULT BELOW Name: LEFTY HARDEN : [address]: Tiago Tam MD Acct: [id number] Unit: [id number] AGE: 70 Location: [facility] Re12/12/15 SEX: M Status: REG REF SPEC: [id number] ROSCOE: 12/12/15-1019 [facility] DR: Tiago Tam MD REQ: [id number] RECD: 12/12/15-6550 STATUS: SOUT _ ORDERED: LEVEL IV COMMENTS: [id number] FINAL DIAGNOSIS Skin, right mid forearm, excision: -- Scar, completely excised. -- No evidence of residual squamous cell carcinoma. COMMENT: The previous lesion at this site ([id number]) has been completely excised. CLINICAL HISTORY Presents [...] performed at Main Lab DEPARTMENT OF PATHOLOGY, [address] [place] [address] Miguel A Pino M.D. Director [facility] # [id number] 22 [id number] 23 SEE RESULT BELOW Name: LEFTY HARDEN : [address]: Tiago Tam MD Acct: [id number] Unit: [id number] AGE: 70 Location: [facility] Re10/17/15 SEX: M Status: REG REF SPEC: [id number] ROSCOE: 10/17/15-3 [facility] DR: Tiago Tam MD REQ: [id number] RECD: 10/18/15-1040 STATUS: SOUT _ ORDERED: LEVEL IV COMMENTS: [id number] FINAL DIAGNOSIS Skin, right forearm, biopsy: -- [...] performed at Main Lab DEPARTMENT OF PATHOLOGY, [address] [place] [address] Miguel A Pino M.D. Director [facility] # [id number] 24 Serum levels of PSA measured using the [employer] [place] DXI Hybritech immunoassay should not be interpreted as absolute evidence of the presence or absence of disease. The PSA value should be used in conjunction with other pertinent clinical diagnostic procedures. The values obtained with different assay methods or kits cannot be used interchangeably. 25 SEE RESULT BELOW Name: LEFTY HARDEN : [address]: Constantin Hernandez MD Acct: [id number] Unit: [id number] AGE: 69 Location: ENDO Re12/12/14 SEX: M Status: REG REF SPEC: [id number] ROSCOE: 12/12/14- SUBM DR: Constantin Hernandez MD REQ: [id number] RECD: 12/12/145169 STATUS: LAN AIKEN DR: Tiago Tam MD [...] performed at Main Lab DEPARTMENT OF PATHOLOGY, [address] [place] [address] Miguel A Pino M.D. Director [facility] # [id number] 26 Because ethnic data is not always readily [...] 15-29 5 Kidney failure <15 (or dialysis) 27 Desirable <150 Borderline high 150-199 High 200-499 Very High >500 28 Desirable <200 Borderline high 200-239 High >239 29 Low <40 Desirable: 40-60 High: >60 30 Desirable: <100 mg/dL Near Optimal: 100-129 mg/dL Borderline High: 130-159 mg/dL High: 160-189 mg/dL Very High: >189 mg/dL 31 Desirable <150 Borderline high 150-199 High 200-499 Very High >500 32 Desirable <200 Borderline high 200-239 High >239 33 Low <40 Desirable: 40-60 High: >60 34 Desirable <100 Near Optimal 100-129 Borderline high 130-159 High 160-189 Very High >189 35 Because ethnic data is not always readily [...] 15-29 5 Kidney failure <15 (or dialysis) 36 Nonsmokers: < 2.9 ng/mL Some smokers may have elevated CEA, usually <5.0 ng/mL. Serum markers are not specific for malignancy, and values may vary by method. 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 Do not interpret serum CEA levels as absolute evidence of the presence or the absence of malignant disease. Use serum CEA in conjunction with information from the clinical evaluation of the patient and other diagnostic procedures. 37 Therapeutic target for the treatment of diabetes Mellitus patients is <7% HBA1C, and in selective patients <6.0%.Please refer to [place] [employer] Diabetic care guidelines for further information. 38 RUN DATE: 10/03/13 [facility] LAB LIVE PAGE 1 RUN TIME: [address] [place] [address] Specimen Inquiry Name: LEFTY HARDEN : [address]: Constantin Hernandez MD Acct: [id number] Unit: [id number] AGE: 68 Location: [facility] Re09/28/13 SEX: M Status: REG REF SPEC: [id number] ROSCOE: 09/28/13- SUBM DR: Constantin Hernandez MD REQ: [id number] RECD: 09/28/13 STATUS: LAN AIKEN DR: Tiago [...] performed at Main Lab DEPARTMENT OF PATHOLOGY, [facility] [address] [place] [address] Miguel A Pino M.D. Director [facility] # [id number] RUN DATE: 10/03/13 [facility] LAB LIVE PAGE 2 RUN TIME: 1520 [facility] [address] [place], [place] [address] Specimen Inquiry Patient: RONALD HARDENNETH [id number] (Continued) CLINICAL HISTORY (Continued) CLINICAL HISTORY Screening colonoscopy for follow-up exam POST-OPERATIVE DIAGNOSIS Screening colonoscopy to cecum, very floppy left, prep fair - at base of cecum sessile mass, biopsied 5x. Cecal mass - await biopsy, polyps - await biopsy GROSS DESCRIPTION 1. The specimen is received in formalin labeled Lefty Harden, Biopsy Cecal Cap Mass, and consists of [...] performed at Main Lab DEPARTMENT OF PATHOLOGY, [address] [place] [address] Miguel A Pino M.D. Director [facility] # [id number] 39 Because ethnic data is not always readily [...] 15-29 5 Kidney failure <15 (or dialysis) 40 HDL Interpretation: Undesirable: High Risk: Less than 40 mg/dL Desirable: Low Risk: Greater than 60 mg/dL 41 LDL Interpretation: Low Risk Optimal Level: LDL Less than 100 mg/dL Near or Above Optimal: LDL 100-129 mg/dL Borderline High Risk: LDL 130-159 mg/dL High Risk: LDL 160-189 mg/dL Very High Risk: LDL Greater than 189 mg/dL 42 FASTING 43 Serum levels of PSA measured using the [employer] DXI Hybritech immunoassay should not be interpreted as absolute evidence of the presence or absence of disease. The PSA value should be used in conjunction with other pertinent clinical diagnostic procedures. The values obtained with different assay methods or kits cannot be used interchangeably. 44 Microalbuminuria in a random sample is defined as: Microalbumin/Creatinine ratio of 30-299 ug/mg. 45 HDL Interpretation: Undesirable: High Risk: Less than 40 MG/DL Desirable: Low Risk: Greater than 60 MG/DL 46 LDL Interpretation: Low Risk Optimal Level: LDL Less than 100 MG/DL Near or Above Optimal: LDL 100-129 MG/DL Borderline High Risk: LDL 130-159 MG/DL High Risk: LDL 160-189 MG/DL Very High Risk: LDL Greater than 189 MG/DL 47 CHOLESTEROL INTERPRETATION: Desirable: Less than 200 MG/DL Borderline-High Risk: 200-239 MG/DL High-Risk: 240 MG/DL and over 48 HDL INTERPRETATION: Undesirable: High Risk: Less than 40 MG/DL Desirable: Low Risk: Greater than 60 MG/DL 49 LDL INTERPRETATION: Low Risk Optimal Level: LDL Less than 100 MG/DL Near or Above Optimal: LDL 100-129 MG/DL Borderline High Risk: LDL 130-159 MG/DL High Risk: LDL 160-189 MG/DL Very High Risk: LDL Greater than 189 MG/DL 50 MICROALBUMINURIA IN A RANDOM SAMPLE IS DEFINED : MICROALBUMIN/CREATININE RATIO OF 30-299 ug/mg. . 51 -- REFERENCE VALUE -- 25-HYDROXY D TOTAL (D2+D3) Optimum levels in the normal population are 25-80 Test Performed by: [facility] Dpt of Lab Med and Pathology [address] [place] [address] Telephone Worker: French Blackwell III, M.D. 52 No bands detected 53 No bands detected 54 Specific serologic response to B. burgdorferi infection [...] Test performed by immunoblot. Test Performed by: [facility] Dpt of Lab Med and Pathology [address] [place] [address] Telephone Worker: French Blackwell III, M.D. 55 * SERUM LEVELS OF PSA MEASURED USING THE [employer] ACCESS HYBRITECH IMMUNOASSAY SHOULD NOT BE INTERPRETED ABSOLUTE EVIDENCE OF THE PRESENCE OR ABSENCE OF DISEASE. THE PSA VALUE SHOULD BE USED IN CONJUNCTION WITH OTHER PERTINENT CLINICAL DIAGNOSTIC PROCEDURES. 56 Note change in reference range as of 11/25/07. The change was based on recommendations from the [place] [employer]. 57 MICROALBUMINURIA IN A RANDOM SAMPLE IS DEFINED : MICROALBUMIN/CREATININE RATIO OF 30-299 ug/mg. . 58 THERAPEUTIC TARGET FOR THE TREATMENT OF DIABETES MELLITUS PATIENTS IS <7% HBA1C, AND IN SELECTIVE PATIENTS <6.0%. PLEASE REFER TO [place] [employer] DIABETIC CARE GUIDELINES FOR FURTHER INFORMATION. 59 CHOLESTEROL INTERPRETATION: Desirable: Less than 200 MG/DL Borderline-High Risk: 200-239 MG/DL High-Risk: 240 MG/DL and over 60 HDL INTERPRETATION: Undesirable: High Risk: Less than 40 MG/DL Desirable: Low Risk: Greater than 60 MG/DL 61 LDL INTERPRETATION: Low Risk Optimal Level: LDL Less than 100 MG/DL Near or Above Optimal: LDL 100-129 MG/DL Borderline High Risk: LDL 130-159 MG/DL High Risk: LDL 160-189 MG/DL Very High Risk: LDL Greater than 189 MG/DL 62 CHOLESTEROL INTERPRETATION: Desirable: Less than 200 MG/DL Borderline-High Risk: 200-239 MG/DL High-Risk: 240 MG/DL and over 63 HDL INTERPRETATION: Undesirable: High Risk: Less than 40 MG/DL Desirable: Low Risk: Greater than 60 MG/DL 64 LDL INTERPRETATION: Low Risk Optimal Level: LDL Less than 100 MG/DL Near or Above Optimal: LDL 100-129 MG/DL Borderline High Risk: LDL 130-159 MG/DL High Risk: LDL 160-189 MG/DL Very High Risk: LDL Greater than 189 MG/DL 65 Note change in reference range as of 11/25/07. The change was based on recommendations from the [place] [employer]. 66 THERAPEUTIC TARGET FOR THE TREATMENT OF DIABETES MELLITUS PATIENTS IS <7% HBA1C, AND IN SELECTIVE PATIENTS <6.0%. PLEASE REFER TO [place] [employer] DIABETIC CARE GUIDELINES FOR FURTHER INFORMATION. 67 FASTING 68 THERAPEUTIC TARGET FOR THE TREATMENT OF DIABETES MELLITUS PATIENTS IS <7% HBA1C, AND IN SELECTIVE PATIENTS <6.0%. PLEASE REFER TO [place] [employer] DIABETIC CARE GUIDELINES FOR FURTHER INFORMATION. 69 Note change in reference range as of 11/25/07. The change was based on recommendations from the [place] [employer]. 70 CHOLESTEROL INTERPRETATION: Desirable: Less than 200 MG/DL Borderline-High Risk: 200-239 MG/DL High-Risk: 240 MG/DL and over 71 HDL INTERPRETATION: Undesirable: High Risk: Less than 40 MG/DL Desirable: Low Risk: Greater than 60 MG/DL 72 LDL INTERPRETATION: Low Risk Optimal Level: LDL Less than 100 MG/DL Near or Above Optimal: LDL 100-129 MG/DL Borderline High Risk: LDL 130-159 MG/DL High Risk: LDL 160-189 MG/DL Very High Risk: LDL Greater than 189 MG/DL 73 Anion gap measurement may be of limited value in the presence of any alkalosis, especially in a combined acid base disorder. . 74 Note change in reference range as of 11/25/07. The change was based on recommendations from the [place] [employer]. 75 Please note change in reference range effective 07 . 76 THERAPEUTIC TARGET FOR THE TREATMENT OF DIABETES MELLITUS PATIENTS IS <7% HBA1C, AND IN SELECTIVE PATIENTS <6.0%. PLEASE REFER TO [place] DIABETIC CARE GUIDELINES FOR FURTHER INFORMATION. 77 CHOLESTEROL INTERPRETATION: Desirable: Less than 200 MG/DL Borderline-High Risk: 200-239 MG/DL High-Risk: 240 MG/DL and over 78 HDL INTERPRETATION: Undesirable: High Risk: Less than 40 MG/DL Desirable: Low Risk: Greater than 60 MG/DL 79 LDL INTERPRETATION: Low Risk Optimal Level: LDL Less than 100 MG/DL Near or Above Optimal: LDL 100-129 MG/DL Borderline High Risk: LDL 130-159 MG/DL High Risk: LDL 160-189 MG/DL Very High Risk: LDL Greater than 189 MG/DL 80 UNABLE TO CALCULATE IND.BILI D.BILI IS <0.1 81 Classification: Desirable . 82 Classification: Low . 83 CALCULATED LDL APPROXIMATES THE VALUE OF A DIRECT LDL MEASUREMENT. Classification: Near or above optimal . 84 Classification: Desirable . 85 Classification: Low . 86 CALCULATED LDL APPROXIMATES THE VALUE OF A DIRECT LDL MEASUREMENT. Classification: Near or above optimal . 87 * SERUM LEVELS OF PSA MEASURED USING THE [employer] ACCESS HYBRITECH IMMUNOASSAY SHOULD NOT BE INTERPRETED ABSOLUTE EVIDENCE OF THE PRESENCE OR ABSENCE OF DISEASE. THE PSA VALUE SHOULD BE USED IN CONJUNCTION WITH OTHER PERTINENT CLINICAL DIAGNOSTIC PROCEDURES. 88 Anion gap measurement may be of limited value in the presence of any alkalosis, especially in a combined acid base disorder. . 89 Classification: Desirable . 90 Classification: Low . 91 CALCULATED LDL APPROXIMATES THE VALUE OF A DIRECT LDL MEASUREMENT. Classification: Near or above optimal . 92 Classification: Desirable . 93 Classification: Low . 94 CALCULATED LDL APPROXIMATES THE VALUE OF A DIRECT LDL MEASUREMENT. Classification: Near or above optimal . 95 * SERUM LEVELS OF PSA MEASURED USING THE [employer]NE [employer] ACCESS HYBRITECH IMMUNOASSAY SHOULD NOT BE INTERPRETED ABSOLUTE EVIDENCE OF THE PRESENCE OR ABSENCE OF DISEASE. THE PSA VALUE SHOULD BE USED IN CONJUNCTION WITH OTHER PERTINENT CLINICAL DIAGNOSTIC PROCEDURES. A PSA value in the range of 0.1 to 0.6 ng/ml is indeterminate if being used as an indicator of recurrent or residual disease. . 96 UNABLE TO CALCULATE IND.BILI D.BILI IS <0.1 Procedures Date Code Description Status 01/19/2018 06916 I & D Abscess Simple Completed 12/10/2017 23036444 Colonoscopy Completed 10/26/2017 [id number] Diabetic Retinal Eye Exam Completed 08/28/2017 45306 Electrocardiogram Complete Completed 04/20/2017 444665018 Diabetic Foot Exam Completed 04/20/2017 54701 Electrocardiogram Complete Completed 04/21/2016 49674 Electrocardiogram Complete Completed 12/11/2015 96193 Excise Malig Lesion .6-1CM Trunk/Arm/Leg Completed 10/17/2015 75717 Shave Skin Lesion .6-1CM Trunk/Arm/Leg Completed 11/13/2014 32342 Electrocardiogram Complete Completed 10/19/2013 58951 X-Ray Chest Two Views Completed 10/19/2013 96457 Electrocardiogram Complete Completed 11/15/2012 87529 Electrocardiogram Complete Completed 11/15/2012 53270 X-Ray Chest Two Views Completed 11/15/2012 33730 Destruction Premalignant Skin Lesions Completed 09/01/2012 47451 X-Ray Chest Two Views Completed 11/10/2011 47186 Electrocardiogram Complete Completed 11/10/2011 44036 Remove Impact Cerumen Requiring Instrument, Unilateral Completed 12/13/2010 14391 Visual Acuity Screening Test Completed 03/27/2010 77895 Electrocardiogram Complete Completed 01/01/2010 0 Payment Completed 09/27/2004 21439 Electrocardiogram Complete Completed 04/22/2004 69988 Remove Impact Cerumen Requiring Instrument, Unilateral Completed Encounters Type Date Location Provider Dx Diagnosis Office Visit 02/24/2018 Main Office Tiago Tam, 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 M65.312 Trigger thumb, left thumb K14.6 Glossodynia Z23 Encounter for immunization Z71.89 Other specified counseling Z79.4 senior living (current) use of insulin Office Visit 04/20/2017 [...] for oth proc for purpose oth than [facility] Z79.4 senior living (current) use of insulin Z51.81 Encounter for [...] unspecified Office Visit 10/16/2015 8:30a Main Office Tiago Tam.65 Type 2 diabetes Cha Ordoñez mellitus with hyperglycemia D48.5 Neoplasm of uncertain behavior of skin Z91.11 Patient's noncompliance with dietary regimen Z23 Encounter for immunization Office Visit 09/21/2015 9:45a Main Office Rigoberto Gallegos H60.8x1 Other otitis Cha Carney externa, right ear Office Visit 05/21/2015 10:45a Main Office Anel E11.65 Type 2 diabetes Cha Ordoñez mellitus with hyperglycemia Office Visit 02/14/2015 9:30a Main Office Lana Tam Type 2 diabetes Cha Ordoñez mellitus with hyperglycemia Z23 Encounter for immunization Z41.8 Encntr for oth proc for purpose oth than [facility] Office Visit 11/13/2014 3:30p Main Office Rhianna [...] Uncontrol Office Visit 02/14/2014 9:45a Main Office Rhianna Tam.42 Diabetes W/ Renal [...] Tendinitis Achilles Office Visit 07/25/2009 Main Office Marysecorafal, 272.0 Hypercholesterolemia Pure 9:30a Cha Ordoñez 790.6 Abnormal Blood Chemistry Other Office Visit 12/12/2008 Main Office Anel, 790.6 Abnormal Blood Chemistry 1:15p Cha Ordoñez Other Office Visit 07/18/2008 Main Office Marysecorafal, 272.0 Hypercholesterolemia Pure 9:30a Cha Ordoñez 790.6 Abnormal Blood Chemistry Other Office Visit 04/24/2008 Main Office Marysecorafal, 272.0 Hypercholesterolemia Pure 2:00p Cha Ordoñez 300.02 Anxiety Disorder Generalized 530.81 Esophageal Reflux 278.02 Overweight V76.44 Screening For Malig Rodolfo Prostate V65.49 Counseling Other Spec Office Visit 03/16/2007 4:00p Main Office Tiago Tam, 374.9 Eyelid Disorder Cha Unspec 278.00 Obesity Unspec Office Visit 05/27/2006 Main Office Marysecorafal, 272.0 Hypercholesterolemia Pure 9:45a Cha Ordoñez 300.02 Anxiety Disorder Generalized 278.02 Overweight V76.51 Special Screening For Malignant Neoplasms Colon 530.81 Esophageal Reflux Office Visit 09/30/2005 Main Office Marysecorafal, 272.0 Hypercholesterolemia Pure 10:45a Cha Ordoñez 300.02 Anxiety Disorder Generalized V76.44 Screening For Malig Rodolfo Prostate 278.02 Overweight Office Visit 09/27/2004 Main Office Marysecorafal, 272.0 Hypercholesterolemia Pure 12:55p Cha Ordoñez 300.02 Anxiety Disorder Generalized 786.59 Pain Chest Other Office Visit 04/22/2004 Main Office Marysecorafal, 272.0 Hypercholesterolemia Pure 2:00p Cha Ordoñez 300.02 [...] Main Office Tiago Tam, 300.02 Anxiety Disorder M.DMeaghan Generalized V65.5 Person W/ Feared Complaint In Whom No Diagnosis Was Made 783.21 Loss Of Weight Office Visit 03/28/2003 1:15p Main Office Tiago Tam M.D. 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 at Main [facility]/24/2018 - Tiago Tam M.D.E11.21 Type 2 diabetes mellitus with diabetic nephropathyNew Medication:Tradjenta 5 mg - 1 by mouth every day for blood sugar controlComments:A1c remains too high, 7.9% today. He has not been taking metformin, not tolerating it. Will try an alternate medication.Follow up: RTO 3 months w/ A1c, recheck chronic problems.E11.65 Type 2 diabetes mellitus with hyperglycemiaNew Medication:Tradjenta 5 mg - 1 by mouth every day for blood sugar oufemghB31.3 Sebaceous cystL03.313 Cellulitis of chest wallComments: resolved cellulitis, still evidence of mild infection given ongoing purulent exudate. Advised continued hot moist compresses at leas 2x/day. RTO prn if Sxs increasing.
[2018-04-11 13:17] LABS: Urine Appearance Cloudy; Urine Bacteria Absent (Absent); Urine Bilirubin Negative (Negative); Urine Blood 3+ (Negative); Urine Color Yellow; Urine Glucose Negative (Negative); Urine Granular Casts Present (Absent); Urine Ketones Negative (Negative); Urine Nitrite Negative (Negative); Urine Protein 3+(>=500 mg/dL) (Negative); Urine Red Blood Cell 2+(6-10/hpf) (Absent); Urine Red Blood Cell Casts Present (Absent); Urine Specific Gravity 1.023 (1.010-1.030); Urine Urobilinogen Negative (Negative); Urine White Blood Cell 2+(11-20/hpf) (Absent)
[2018-04-11 13:19] LABS: Albumin 1.9 g/dL (3.2-5.2); Albumin/Globulin Ratio 0.6 (1-3); BUN/Creatinine Ratio 22.3 (8-20); C Reactive Protein 3.23 mg/L (<8.01); Calcium 7.6 mg/dL (8.6-10.3); EGFR Non-African American 23.8 (>60); Globulin 3.1 g/dL (2-4); Potassium 4.2 mmol/L (3.5-5.0); Total Bilirubin 0.3 mg/dL (0.2-1.0)
[2018-04-11] MEDS ORDERED: Dextrose 50% Syringe 50 ML* 25 GM/50 ML SYRINGE ONE (13:41)
[2018-04-11] MEDS ORDERED: Dextrose 50% Syringe 50 ML* 25 GM/50 ML SYRINGE IV PUSH ONE (13:43)
[2018-04-11] MEDS ORDERED: Furosemide IV* 10 MG/ML VIAL (40 MG) IV SLOW PU ONE (16:48)
[2018-04-11] MEDS ORDERED: Ondansetron INJ* 2 MG/ML VIAL IV PRN (16:52)
[2018-04-11] MEDS ORDERED: Acetaminophen TAB* 325 MG PO PRN (16:52)
[2018-04-11] MEDS ORDERED: Magnesium Hydroxide LIQ* 30 ML UDC PO PRN (16:52)
[2018-04-11] MEDS ORDERED: clonazePAM TAB(*) 1 MG PO ONE (16:54)
[2018-04-11] MEDS ORDERED: clonazePAM TAB(*) 0.5 MG PO PRN (16:55)
[2018-04-11] MEDS: Docusate CAP* 100 MG PO SCH (21:57)
[2018-04-11] MEDS: Insulin GLARGINE(*) 1 UNITS UNIT SUBCUT SCH (21:57)
[2018-04-11] MEDS: Heparin VIAL(*) 5000 UNITS/ML VIAL (FIVE THOUSAND) SUBCUT SCH (21:58)
[2018-04-11] MEDS: Senna TAB PO SCH (21:58)
--- NOTE | 2018-04-12 01:21 | HP ---
CC: Dr. Tam * HISTORY AND PHYSICAL: DATE OF ADMISSION: 04/11/18 PRIMARY CARE PROVIDER: Dr. Tam. HEALTHCARE PROXY: His , Ash. CODE STATUS: Full. SOURCE OF INFORMATION: History obtained from interview with the patient and his . RELIABILITY: Good. CHIEF COMPLAINT: Weight gain. HISTORY OF PRESENT ILLNESS: This is a 72-year-old man with a past medical history of insulin-dependent type 2 diabetes mellitus as well as severe anxiety who had been in his usual state of health until approximately 1 month prior, started increasing weight. This weight gain became most remarkable over the last 2 weeks. He has had several visits to both the emergency room as well as Dr. Tam's office. He was found with decline in his creatinine on 04/03/18. He was started on 20 mg of furosemide in the emergency room 1 week prior to presentation which was increased 3 days prior to presentation by his primary care provider from 20 to 40 mg Lasix. However, his weight continued to increase both primarily in his abdomen, scrotum, and his lower extremities. He has noticed increased dyspnea on exertion; however, he is still able to perform approximately 40 minutes on a stationary bike, spends two 20-minute intervals during the day. He has noticed over the last month it has become more difficult biking up hill, especially over the last 2 weeks when biking outside. Because of the increasing weight, he has decreased how much he is eating. He is trying to avoid fluids. Concomitantly over night, he has found himself to be shaky and lightheaded, usually resolves with small candies. As an outpatient , he had recent ultrasound of the kidneys as well as a 24-hour urine collection which reportedly showed 27,000 g/dL protein; however, this data is not available to this author. Because of the increasing edema and concern, he presented to the emergency room today. The patient was found to be hypoglycemic on presentation, blood sugar of 44. The hospitalist service was consulted for admission. When seen by this author, the patient was extremely anxious. His greatest concern was fluid. However, he denies any chest pain, shortness of breath, nausea, vomiting or lightheadedness. He did report he had upper respiratory like infection approximately before the weight gain initiated. PAST MEDICAL HISTORY: Includes: 1. Insulin-dependent type 2 diabetes mellitus. 2. BPH. 3. Hyperlipidemia. 4. Anxiety. PAST SURGICAL HISTORY: 1. Appendectomy. 2. Limited colectomy to cecum in 2014. MEDICATIONS: Home medications include: 1. Lasix 40 mg daily which was increased 3 days prior to presentation to this dose. 2. Glargine 30 units at bedtime. 3. Motrin 600 mg every 6 hours as needed. 4. Aspirin 81 mg daily. 5. Glipizide 5 mg daily. 6. Atorvastatin 40 mg daily. 7. Tamsulosin 0.4 mg daily. ALLERGIES: No known drug allergies. FAMILY HISTORY: Father with an ME at age 60 and mother with lymphoma at 78. 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 No tobacco, no alcohol. Lives with his . REVIEW OF SYSTEMS: As per HPI, otherwise all other systems negative. PHYSICAL EXAMINATION GENERAL: Sitting up in bed, interactive, in no apparent distress, however, extremely anxious. VITAL SIGNS: In the emergency room, 150/105, heart rate 78, respiratory rate 16 , 95% to 98% on room air, T-max 97. HEENT: Oropharynx is clear. He has moist mucous membranes. Sclerae are anicteric. NECK: He has no elevated JVD. LUNGS: Clear to auscultation throughout, symmetric airway expansion. HEART: Regular rate and rhythm. ABDOMEN: Protuberant, distended, but soft, nontender, cannot elicit a fluid wave. EXTREMITIES: Warm and well perfused with tense bilateral pitting edema in lower extremities, scrotal edema, and maybe mild periorbital edema. SKIN: Notable for erythematous rash in bilateral legs with a vesicular component of a more papular rash extending to bilateral groins and across his belly. PSYCHIATRIC: He displays no depression or anger or agitation but severe anxiety. DIAGNOSTIC STUDIES/LAB DATA: Laboratory data reviewed. On presentation, glucose 44, BUN 59, creatinine 2.65. Urine notable for protein, blood, white blood cells, hyaline, granular, and red blood cell casts. Data reviewed. Chest x-ray: No active cardiopulmonary disease. ASSESSMENT AND PLAN: A 72-year-old man presenting with anasarca, also found to have acute on chronic kidney injury and hypoglycemia. 1. Acute on chronic renal injury in the setting of nephrotic syndrome as well as Lasix administration. Admit to the hospital, OBE. Try and avoid nephrotoxic agents. 2. Nephrotic syndrome suspected based on patient's relaying of large amount of protein in the blood and urine, although blood counts notable on UA, possibly nephritic. Requesting Nephrology consultation. Start Lasix 40 mg IV, monitor I 's and O's, daily weights, and kidney function. May need multiple types of diuretics . Elevate legs, wrap legs from ankles to groin. Strict I's and O's, 1200 cc per 24 hour restricted diet, low-salt diet. Also, check transthoracic echocardiogram. 3. Constipation. Senna, Colace p.r.n., magnesium oxide, milk of magnesia. 4. Severe anxiety. The patient was taking Klonopin in the past, dose now, restart t.i.d. p.r.n. tomorrow. 5. Type 2 diabetes with hypoglycemia in the setting of decreased carb intake, increased exercise and consistent medication regimen, decrease Lantus from 30 to 15, maintain glipizide, check fingersticks q.a.c. and h.s. 6. DVT prophylaxis. Heparin subcu. [id number][place] [place]: [id number] MTDD
[2018-04-12] MEDS: Heparin VIAL(*) 5000 UNITS/ML VIAL (FIVE THOUSAND) SUBCUT SCH ×3 (05:39→21:08)
[2018-04-12 07:29] LABS: BUN/Creatinine Ratio 25.2 (8-20); Calcium 6.6 mg/dL (8.6-10.3); EGFR Non-African American 25.9 (>60); HDL Cholesterol 40.2 mg/dL; Magnesium 2.7 mg/dL (1.9-2.7); Potassium 4.4 mmol/L (3.5-5.0)
--- NOTE | 2018-04-12 08:44 | ECHO ---
Patient: LEFTY LANZA [facility] Rec#: [id number] : 1945 Date: 04/12/2018 Age: 72y Height: 178 cm / 70.1 in Weight: 109 kg / 240.2 lbs Sex: M BSA: 2.26 Room#: 401 Admit Date#: 04/11/2018 Type: Inpatient Referring: Michoacano Ware MD Reading: Nicolás Staples MD Supervisor Intelligence Analyst: Tianna Busch RDCS,RDMS CC: Tiago Tam MD Transthoracic Echocardiogram Indication: CHF BP: 137/92 HR: 70 Rhythm: NSR with PVCs Findings History: Dyspnea, edema, DM, HLD Technical Comments: The study quality is fair. Left Ventricle: The left ventricular chamber size is normal. Moderate concentric left ventricular hypertrophy is observed. Global left ventricular wall motion and contractility are within normal limits. There is normal left ventricular systolic function. The estimated ejection fraction is 55-60%. There is an E to A reversal in the mitral valve flow pattern suggestive of diastolic dysfunction. Left Atrium: The left atrium is mild to moderately dilated. Right Ventricle: The right ventricular chamber size and systolic function are within normal limits. Right Atrium: The right atrium is slightly dilated. Aortic Valve: The aortic valve is trileaflet. The aortic valve leaflets are mildly thickened. There is mild aortic regurgitation. There is no evidence of aortic stenosis. Mitral Valve: There is mitral annular calcification. The mitral valve leaflets are mildly thickened. There is a trace of mitral regurgitation. There is no evidence of mitral stenosis. Tricuspid Valve: The tricuspid valve leaflets are not thickened. There is no evidence of tricuspid valve regurgitation. Unable to estimate the right ventricular systolic pressure. Pulmonic Valve: There is no evidence of pulmonic valve thickening. There is no evidence of pulmonic regurgitation. Pericardium: There is no significant pericardial effusion. Aorta: There is borderline dilatation of the ascending aorta. There is mild dilatation of the aortic root. Pulmonary Artery: The main pulmonary artery is not well visualized. Venous: The inferior vena cava is not visualized. Summary: There was not any prior study for comparison. Conclusions Moderate concentric left ventricular hypertrophy is observed. Global left ventricular wall motion and contractility are within normal limits. The estimated ejection fraction is 55-60%. There is an E to A reversal in the mitral valve flow pattern suggestive of diastolic dysfunction. There is mild aortic regurgitation. There is a trace of mitral regurgitation. There is no evidence of tricuspid valve regurgitation. Unable to estimate the right ventricular systolic pressure. There is no significant pericardial effusion. Measurements Name Value Normal Range RVIDd (AP) 2D 2.9 cm (0.9 - 2.6) RVDdMajor (2D) 2.7 cm (2.2 - 4.4) RAd ISD 4CH 5.1 cm (3.4 - 4.9) RA (A4C)W 4 cm (2.9 - 4.6) IVSd (2D) 1.6 cm (0.6 - 1) LVPWd (2D) 1.5 cm (0.6 - 1) LVIDd (2D) 4.6 cm (3.6 - 5.4) LVIDs (2D) 2.1 cm - LV FS (2D) 55 % (25 - 45) Aortic Annulus 2.7 cm (1.4 - 2.6) Ao root diameter (2D) 3.5 cm (2.1 - 3.5) Ascending Ao 3.5 cm (2.1 - 3.4) LA dimension (AP) 2D 4.1 cm (2.3 - 3.8) LAd ISD 4CH 6.6 cm (2.9 - 5.3) LA ISD 4CH W 4.3 cm (2.5 - 4.5) Name Value Normal Range LA ESV BP (A/L) index 42 ml/m2 - Name Value Normal Range MV E-wave Vmax 0.7 m/sec - MV deceleration time 230 msec - MV A-wave Vmax 0.9 m/sec - MV E:A ratio 0.8 ratio - LV septal e' Vmax 0.06 m/sec - LV lateral e' Vmax 0.06 m/sec - LV E:e' septal ratio 12 ratio - LV E:e' lateral ratio 12 ratio - Name Value Normal Range AV Vmax 1.6 m/sec - AV VTI 30 cm - AV peak gradient 10 mmHg - AV mean gradient 6 mmHg - LVOT Vmax 1.3 m/sec - LVOT VTI 24 cm - LVOT peak gradient 7 mmHg - LVOT mean gradient 4 mmHg - AR PHT 682 msec - Name Value Normal Range RAP 8 mmHg - Name Value Normal Range PV Vmax 0.9 m/sec - PV peak gradient 3.2 mmHg -
[2018-04-12] MEDS: Senna TAB PO SCH ×2 (09:00→21:08)
[2018-04-12] MEDS ORDERED: Furosemide IV* 10 MG/ML VIAL (40 MG) IV SLOW PU SCH (09:00)
[2018-04-12] MEDS: Atorvastatin* 40 MG TAB PO SCH (09:00)
[2018-04-12] MEDS: glipiZIDE TAB.XL* 5 MG PO SCH (09:01)
[2018-04-12] MEDS: Aspirin 81 mg CHEW TAB* 81 MG TAB.CHEW PO SCH (09:01)
[2018-04-12] MEDS: Tamsulosin CAP* 0.4 MG PO SCH (09:01)
[2018-04-12] MEDS: Docusate CAP* 100 MG PO SCH ×2 (09:01→21:08)
[2018-04-12] MEDS ORDERED: Furosemide IV* 10 MG/ML VIAL (40 MG) IV SLOW PU ONE (14:00)
--- NOTE | 2018-04-12 17:25 | PN ---
Subjective Date of Service: 04/12/18 Interval History: Remains very anxious frequent questions about "how good" the urine output is, "Am I going to ?" "This is really bad right" Still feels really swollen Denies SOB, N/V, LH chest pain Objective Active Medications: Acetaminophen (Tylenol Tab*) 650 mg PO Q4H PRN PRN Reason: FEVER/PAIN Aspirin (Aspirin 81 Mg Chew Tab*) 81 mg PO DAILY [facility] Last Admin: 04/12/18 09:01 Dose: 81 mg Atorvastatin Calcium (Lipitor*) 40 mg PO DAILY [facility] Last Admin: 04/12/18 09:00 Dose: 40 mg Clonazepam (Klonopin Tab(*)) 0.5 mg PO BID PRN PRN Reason: ANXIETY Docusate Sodium (Colace Cap*) 100 mg PO BID [facility] Last Admin: 04/12/18 09:01 Dose: 100 mg Furosemide (Lasix Iv*) 80 mg IV SLOW PU DAILY [facility] Glipizide (Glucotrol Xl*) 5 mg PO DAILY [facility] Last Admin: 04/12/18 09:01 Dose: 5 mg Heparin Sodium (Porcine) (Heparin Vial(*)) 5,000 units SUBCUT Q8HR [facility] Last Admin: 04/12/18 14:27 Dose: 5,000 units Insulin Glargine (Lantus(*)) 15 units SUBCUT BEDTIME [facility] Last Admin: 04/11/18 21:57 Dose: 15 units Magnesium Hydroxide (Milk Of Magnesia Liq*) 30 ml PO Q4H PRN PRN Reason: CONSTIPATION Ondansetron HCl (Zofran Inj*) 4 mg IV Q4H PRN PRN Reason: NAUSEA/VOMITING Senna (Senokot Tab*) 1 tab PO BID [facility] Last Admin: 04/12/18 09:00 Dose: 1 tab Tamsulosin HCl (Flomax Cap*) 0.4 mg PO DAILY [facility] Last Admin: 04/12/18 09:01 Dose: 0.4 mg Vital Signs - 8 hr 04/12/18 11:46 Temperature 98.1 F Pulse Rate 73 Respiratory 19 Rate Blood Pressure 128/82 (mmHg) O2 Sat by Pulse 97 Oximetry Oxygen Devices in Use Now: None Appearance: NAD Eyes: No Scleral Icterus, PERRLA Ears/Nose/Mouth/Throat: NL Teeth, Lips, Gums, Clear Oropharnyx Neck: NL Appearance and Movements; NL JVP, Trachea Midline Respiratory: Symmetrical Chest Expansion and Respiratory Effort, Clear to Auscultation Cardiovascular: RRR Abdominal: NL Sounds; No Tenderness; No Distention, - - soft, +distention, NTTP Extremities: - - tense pitting edema b/l LE Skin: - - patchy erythema in b/l lower LE Neurological: Alert and Oriented x 3 Result Diagrams: 04/11/18 11:57 04/12/18 06:27 Microbiology and Other Data: Microbiology 04/11/18 12:20 Urine Culture - Final Urine No Growth (<1,000 CFU/mL) Assess/Plan/Problems-Billing Assessment: 72 yo M h/o IDDM, HLD, severe anxiety admitted with worsening renal function and hypoglycemia - Patient Problems (1) Nephrotic syndrome Comment: nephrotic range proteinuria with red casts raises concern for nephritis syndrome Dr. Em to see pt tomorrow Reported protein was 27k on 24 hr protein collection increase lasix to 80mg IV/day (received 40 BID today) elevated and wrap legs volume restrict check ANCAs, ESR, ASO, Anti RNA trend BMP (2) Hypoglycemia Comment: in setting of self-imposed restricted calories lowered lantus and stopped glipizide trend (3) DVT prophylaxis Comment: HSQ
[2018-04-12] MEDS: Insulin GLARGINE(*) 1 UNITS UNIT SUBCUT SCH (21:08)
[2018-04-13] MEDS: Heparin VIAL(*) 5000 UNITS/ML VIAL (FIVE THOUSAND) SUBCUT SCH ×2 (05:32→14:20)
[2018-04-13 06:29] LABS: BUN/Creatinine Ratio 26.3 (8-20); C Reactive Protein 2.33 mg/L (<8.01); Calcium 6.7 mg/dL (8.6-10.3); EGFR Non-African American 26.7 (>60); Magnesium 2.7 mg/dL (1.9-2.7); Potassium 4.2 mmol/L (3.5-5.0)
[2018-04-13] MEDS: Senna TAB PO SCH (07:41)
[2018-04-13] MEDS: Docusate CAP* 100 MG PO SCH (07:41)
[2018-04-13] MEDS: glipiZIDE TAB.XL* 5 MG PO SCH (07:41)
[2018-04-13] MEDS: Aspirin 81 mg CHEW TAB* 81 MG TAB.CHEW PO SCH (07:42)
[2018-04-13] MEDS: Atorvastatin* 40 MG TAB PO SCH (07:42)
[2018-04-13] MEDS: Tamsulosin CAP* 0.4 MG PO SCH (07:42)
[2018-04-13] MEDS ORDERED: Furosemide IV* 10 MG/ML VIAL (40 MG) IV SLOW PU SCH (09:00)
[2018-04-13 11:41] VITALS: BP 136/81
--- NOTE | 2018-04-13 22:30 | DS ---
CC: Dr. Tam; Dr. Em * DISCHARGE SUMMARY: DATE OF ADMISSION: 04/11/18 DATE OF DISCHARGE: 04/13/18 PRIMARY CARE PROVIDER: Dr. Tam. DISCHARGE DIAGNOSES: 1. Anasarca due to nephrotic syndrome. 2. Acute renal failure due to nephrotic syndrome. 3. Hypoglycemia in a patient who had been on sulfonylurea medications. SECONDARY DIAGNOSES: 1. Diabetes type 2. 2. Obesity with body mass index above 35. 3. Anxiety. 4. Benign prostatic hypertrophy. 5. Hyperlipidemia. 6. History of colectomy to the cecum in 2013. MEDICATIONS AT DISCHARGE: Include: 1. Insulin glargine 15 units subcutaneously every morning. The patient is to check his sugars before administering insulin Lantus and to hold insulin Lantus if the sugar is below 90. 2. Captopril 6.25 mg 3 times a day. 3. Flomax 0.4 mg daily. 4. "Sleeping pill." Continue as previously taken. 5. Lasix 40 mg daily. 6. Lipitor 40 mg daily. 7. Aspirin 81 mg daily. LABORATORY DATA AND STUDIES PERFORMED DURING THE HOSPITAL STAY: Included: On 04/13/18, sodium of 142, potassium 4.2, chloride 111, carbon dioxide 25, BUN 63 , creatinine 2.4. Patient's cholesterol profile obtained on 04/12/18 showed triglycerides of 202, cholesterol of 253, LDL of 172, HDL of 40. CBC obtained at admission showed WBC of 8.5, hemoglobin of 14.5, hematocrit of 44, and platelets of 403. Patient's ESR was noted to be 98 at admission. Patient's antistreptolysin O titer was negative on 04/13/18. Urinalysis showed +2 wbc's, +2 rbc's, positive for hyaline casts, granular casts , and rbc casts. Negative for esterase, negative for nitrite, +3 blood. Transthoracic echocardiogram showed EF of 55-60% with moderate LVH with E/A reversal of the mitral valve flow pattern suggestive of diastolic dysfunction, trace mitral regurgitation. Please note that the patient's renal ultrasound was obtained as outpatient on , impression: "no hydronephrosis is noted. Parapelvic cyst of left kidney. Small amount of ascites is present." CONSULTATIONS DURING THE HOSPITAL STAY: Included Dr. Em from Nephrology. HOSPITALIZATION COURSE: Jl Harden is a 72-year-old male who presented to the hospital complaining of weight gain. Patient stated that despite being treated with outpatient furosemide, he continued to gain weight. His 24-hour urine collection reportedly showed 27,000 mg per 24 hours protein. His urinalysis was positive for casts, which questioned nephritic syndrome on top of nephrotic syndrome. Patient's ESR was also elevated. Patient's leg edema improved with IV Lasix treatment. We also instituted Cali bandages with good results. Please also note that the patient's ANCA panel as well as ribosomal antibody are pending at the time of the dictation. On the day of discharge, the patient was seen by Dr. Em, who recommended for the patient okay to be discharged home with continuation of Lasix, institution of captopril for proteinuria. Dr. Em noted that the patient's elevated inflammatory markers will require further evaluation that will be instituted for this patient as outpatient. Patient is being discharged home with recommendation to follow up with Dr. Em in approximately 1 week after discharge. Please also note that the patient was noted to be hypoglycemic. He had been on sulfonylurea as outpatient and hypoglycemia likely occurred due to decreased renal function. Unfortunately, the patient did receive the last dose of glipizide on the day of discharge. Despite that the sugars were in the 50s in the morning. Please note that the patient also was asymptomatic from his hypoglycemia standpoint. He was recommended to stop his glipizide. His Lantus insulin level was lowered to 15 units a day and patient is to start taking his Lantus insulin the morning after discharge with hold parameters if his sugars are below 90 to hold it. Patient also was advised to check his sugars 3 times a day for the next several days and watch for hypoglycemia. At this point, the cause of his nephrotic syndrome is likely uncontrolled diabetes. Once again, further evaluation of remaining possibility of differential including possibility of nephritic syndrome has to be explored and will be followed with Dr. Em as outpatient. PHYSICAL EXAM AT THE TIME OF DISCHARGE: Blood pressure of 136/81, heart rate of 81 and regular, respiratory rate 18, oxygen saturation 96% on room air, temperature of 97.8. General: The patient is a very pleasant 72-year-old male who is in no acute distress. Alert, awake, oriented x3. HEENT: Head: Atraumatic, normocephalic. Eyes: Pupils are equal and reactive to light and accommodation. Oropharynx is clear. Mucosa moist. Neck: Supple. No JVD. No bruit bilaterally. Cardiovascular: Regular rate and rhythm. No murmur. Respiratory: Clear to auscultation bilaterally. Abdomen: Protuberant, soft, nontender. Bowel sounds present in all 4 quadrants. Extremities: There is +1 pitting pedal edema bilaterally. There was no clubbing and no cyanosis. Pulses are +2 bilaterally. The edema is reaching to the level of above patient' s knees. On evaluation of the skin, the patient has venous stasis related dry skin and scant dermatitis in the pretibial regions bilaterally. Neuro Evaluation: Speech clear. Cranial nerves II through XII grossly intact. Motor strength is 5 /5 bilaterally. Please note that this is a short summary of the patient's hospitalization. Please refer to further medical records for details. TIME SPENT: Approximately 45 minutes was spent on the patient's discharge. [id number]/[facility] #: [id number] MTDD
--- NOTE | 2018-04-14 16:47 | CONS ---
CC: Dr. Tam.* NEPHROLOGY CONSULTATION: DATE OF CONSULT: 04/13/18. HISTORY OF PRESENT ILLNESS: I had initially seen Mr. Harden yesterday, but went to collect up some additional information from Dr. Tam's office before dictating this consultation. Mr. Harden is a 72-year-old gentleman with a history of insulin- dependent diabetes mellitus, which apparently has been diagnosed only for about 5 years. However, on close questioning he tells me that he did a fingerstick glucose on one of his friend's devices about 10 years ago, when he was found to have an elevated blood sugar, so he may have had diabetes longer than was actually diagnosed. His diabetes has been complicated by neuropathy involving his feet, which has been going on for approximately 5 to 6 years. He has had no evidence of retinopathy. He began to have some weight gain a few weeks prior to admission. He slowed down his eating, he started exercising more. He apparently was riding his bicycle 40 to 50 miles a day, occasionally even more. His weight continued to go up. He was having more dyspnea on exertion and generalized malaise. He developed a worsening edema and increasing abdominal girth. He denied chest pain. He has had some orthopnea. No anorexia. No dysuria, frequency or urgency. In the hospital, he was found to have some elevated serum creatinine and he had been previously noted by Dr. Tam to have a marked increase in his urinary protein excretion. PAST MEDICAL HISTORY: Previous medical history significant for benign prostatic hypertrophy, hyperlipidemia, and anxiety. MEDICATIONS: His medications at the time of admission included: 1. Lasix 40 mg daily. 2. Glargine 30 units at bedtime. 3. Motrin 600 mg every 6 hours p.r.n. 4. Aspirin 81 mg daily. 5. Glipizide 5 mg daily. 6. Atorvastatin 40 mg daily. 7. Tamsulosin 0.4 mg daily. ALLERGIES: There are no medical allergies. FAMILY HISTORY: Significant. His father had a myocardial infarction at age 60. His mother had a lymphoma at age 78. 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 REVIEW OF SYSTEMS: No visual disturbances. No hearing problems. No swallowing difficulties. No arthropathy. PHYSICAL EXAM: On physical examination, he is a well-developed, very nervous white gentleman. His blood pressure was 136/81 with a pulse of 81, respirations 18. He is normocephalic. He is anicteric. His extraocular muscles are intact. His mucous membranes are moist. There is no jugular venous distention. His chest was clear. The heart revealed a regular rhythm without murmurs. The abdomen is somewhat distended. I did not feel positive fluid wave. I did not feel any organomegaly. Bones, joints, and extremities, he had 3+ edema all the way up his legs. He has some scrotal edema. He had some mild thumb printing of his anterior abdominal wall. There was erythematous rash to his legs, which appeared typical to me of tinea corporis and tinea pedis. DIAGNOSTIC STUDIES/LAB DATA: Review of his laboratory studies revealed a sodium of 142, potassium 4.2, total CO2 25, chloride 111, BUN 63, creatinine 2.4 , glucose of 53, calcium of 6.7 with an albumin of 1.9, white count of 8.5 with a hemoglobin of 14.5. His 24 hour urine result revealed 27,694 mg of protein per 24 hours. His urinalysis revealed 3+ protein, 3+ blood, 2+ WBCs, 2+ RBCs, some hyaline granular and RBC casts. DISCUSSION: Generally speaking in the diabetic patient who has had diabetes long enough and is having complications of diabetes, it is usually reasonable to ascribe nephrotic range proteinuria to diabetes mellitus, 27,000 mg is a little high for this and in addition, he has a somewhat elevated sedimentation rate of 98 and he does have this erythematous rash, which appears to be bartolo to me, may actually be related to one of the vasculitides. I have recommended that we send off a C and P-ANCA. I think he should be treated with low-dose TAI inhibitor and I will start with captopril and then convert over to lisinopril as long as we know that the potassium and creatinine are doing well with that. I would allow his respiratory status to dictate diuretics. It is going to be very difficult to diurese him in the face of a significant hypoalbuminemia. I am hopeful that by increasing TAI inhibition, we can reduce his albumin excretion and thereby improve his mobilization of edema. At some point, he may require a kidney biopsy, but I do not think at present that is going to be necessary. [id number]/[facility] #: [id number] MTDD
[2018-04-14 17:52] LABS: Ribosomal Antibody <0.2 U
[2018-04-15 10:01] LABS: Anti Streptolysin O Antibody <20 IU/mL (0 - 530)
== END 2018-04-13 14:20 | disposition home or self-care (01) | DRG 699 ==
LOC: ED 12:02 → MED 16:52 → OBSVTOIN 04-12 16:30
PROVIDERS: ADMIT Internal Medicine; ATTEND Internal Medicine
DX: E11.21 Type 2 diabetes mellitus with diabetic nephropathy (principal); P96.2 Withdrawal symptoms from therapeutic use of drugs in newborn; N17.9 Acute kidney failure, unspecified; E11.649 Type 2 diabetes mellitus with hypoglycemia without coma; E11.42 Type 2 diabetes mellitus with diabetic polyneuropathy; T38.3X5A Adverse effect of insulin and oral hypoglycemic [antidiabetic] drugs, initial encounter; E66.9 Obesity, unspecified; F41.9 Anxiety disorder, unspecified; N40.0 Benign prostatic hyperplasia without lower urinary tract symptoms; K59.00 Constipation, unspecified; R60.1 Generalized edema; E78.5 Hyperlipidemia, unspecified; Z68.35 Body mass index [BMI] 35.0-35.9, adult; Y92.9 Unspecified place or not applicable; Z79.82 Long term (current) use of aspirin; Z79.4 Long term (current) use of insulin; Z79.1 Long term (current) use of non-steroidal anti-inflammatories (NSAID); Z79.899 Other long term (current) drug therapy; Z82.49 Family history of ischemic heart disease and other diseases of the circulatory system; Z80.7 Family history of other malignant neoplasms of lymphoid, hematopoietic and related tissues
CPT/HCPCS: 36415; 71045; 80048; 80053; 80061; 81003; 81015; 82553; 83516; 83605; 83735; 83880; 84100; 84484; 85025; 85652; 85730; 86060; 86140; 86215; 87086; 93005; 93306; 99284; A9270-GY; G0378; J1644; J1940

== ENCOUNTER 2018-05-03 18:21 | Emergency (ER) | payer MEDICARE, BC ==
--- OUTSIDE RECORDS SUMMARY | 2018-05-03 19:00 | XMS REPORT | Continuity of Care Document ---
:1945 External Reference #:[id number] Author Name Tiago Tam M.D. Address [address] [facility] [address] [place] [address] Care Team Providers Name Role Phone HCP given Primary Care Physician Unavailable Payers Type Date Identification Numbers Payment Provider Subscriber Policy Number: [id number] [facility] Lefty Harden PayID: [id number] [address] [place] [address] Policy Number: [id number] [employer] Lefty Harden PayID: [id number] [address] [place] [address] Advance Directives Description No Information Available Problems Date Description Provider Status Onset: 11/10/2011 Pure hypercholesterolemia Tiago Tam M.D. Active Onset: 11/10/2011 Type 2 diabetes mellitus Tiago Tam M.D. Active Onset: 03/18/2013 Type 2 diabetes mellitus Tiago Tam M.D. Active Onset: 05/24/2016 Chronic rhinitis Yung Jose D.O. Active Onset: 04/09/2018 Proteinuria Tiago Tam M.D. Active Onset: 04/09/2018 Edema Tiago Tam M.D. Active Family History Date Family Member(s) Problem(s) Comments Father Heart Disease : (age 60 Father due to [place] smoker Years) Father Hypertension ? Father Hypercholesterolemia [...] Form Strength Qnty SIG Indications Ordering Provider Lantus Active Solution 100Unit/ML inject E11.65 Silcoff, Solostar 019 Pen-Inject 10units Tiago once M.D. daily, at same time every day; for blood sugar control E11.21 Furosemide 04/19/2018 Active Tablets 40mg 2 by mouth twice R60.1 Hesson, daily MD Eusebio Captopril 04/19/2018 Active Tablets 12.5mg 1 tab three E11.21 Hesson, times a day for radha Kaplan MD protection Vitamin B12 04/13/2018 Active Tablets ER 1000mc Unknown g Freestyle 09/28/2017 Active Misc 10 use 1-2x/day for E11.65 Silcoff, Lancets 0u blood sugar isha Ordoñez monitoring M.D. ts Freestyle Lite 09/18/2017 Active Strips 10 use 2x/day as E11.65 Silcoff, Test 0u directed for isha Ordoñez monitoring blood M.D. ts sugar Pen [place] 08/28/2017 Active Misc 31G X 10 use as directed E11.65 Silcoff, 8 mm 0u (once/day) for isha Ordoñez insulin M.D. ts administration Flonase 05/24/2016 Active Suspension 50mcg/ 47 2 sprays twice a J31.0 Sopchak, Allergy Relief Act .4 day until Yung, 00 better. D.O. ml Clonazepam 12/25/2015 Active Tablets 0.5mg 60 1/2-1 by mouth F41.9 Silcoff, ta 3x/day as needed jasmine Ordoñez for anxiety M.D. Tamsulosin HCL 02/07/2015 Active Capsules 0.4mg daily Osiel Fonseca MD Freestyle 28G 09/20/2014 Active 10 Use as Directed Anel Lancets 0u 1-2 Times A Day isha Ordoñez For Monitoring M.DMeaghan gibson Blood Sugar Glucometer 10/19/2013 Active 1u use as directed E11.65 isha Tam ts M.DMeaghan Atorvastatin 06/02/2012 Active Tablets 40mg 90 1 by mouth every Silcoff, Calcium ta day for high jasmine Ordoñez cholesterol (to M.D. replace crestor) Aspirin Ec 04/24/[address] 81mg 1 po qd for Silcoff, heart disease carey Ordoñez M.D. Lantus 04/19/2018 - Hx Solution 100Uni inject 15units E11.65 Anel Solostar 04/20/2018 Pen-Inject t/ML once daily, at Tiago, same time every M.DMeaghan day; for blood sugar control E11.21 Furosemide 04/14/2018 - Hx Tablets 40mg 180tabs 1 tablet R60.1 Silcorafal, 04/19/2018 2x/day Cha Ordoñez Captopril 04/13/2018 - Hx Tablets 12.5mg 1/2 tab tid E11.21 Unknown 04/19/2018 Furosemide 04/09/2018 - Hx Tablets 20mg 2 by mouth R60.1 Marysecorafal, 04/14/2018 every hCa Ordoñez morning for edema Furosemide 04/04/2018 - Hx Tablets 20mg 20tabs 1 tablet by R60.1 Unknown 04/09/2018 mouth daily Ondansetron HCL 03/29/2018 - Hx Tablets 4mg 10tabs 1 by mouth R11.0 Silli, 04/08/2018 every 4 Cha Ordoñez hours as needed for nausea Farxiga 03/05/2018 - Hx Tablets 5mg 90tabs 1 tab by E11.65 Marysecoff, 04/06/2018 mouth every Cha Ordoñez day for blood sugar control E11.21 E11.65 Tradjenta 02/24/2018 - Hx Tablets 5mg 90tabs 1 by mouth E11.65 Silcoff, 03/05/2018 every day for Cha Ordoñez blood sugar control E11.21 E11.65 Amoxicillin/Clavulanate 01/09/2018 Hx Tablets 875-125mg 20tabs 1 tab L03.313 Silcoff, Potassium - by Tiago, 01/19/2018 mouth M.D. twice a day x10 days Chikis Reid 12/26/2017 Hx Solution 100Unit/ML 15ml inject E11.65 Silcoff, - Pen-Inje 30unit Tiago, 04/19/2018 ct s once M.D. daily, at same time every day; for blood sugar contro l Chikis Napierostar 12/09/2017 Hx Solution 100Unit/ML 15ml inject E11.65 Silcoff, - Pen-Inje 26unit Tiago, 12/26/2017 ct s once M.D. daily, at same time every day; for blood sugar contro l Chikis Reid 11/24/2017 Hx Solution 100Unit/ML inject E11.65 Silcoff, - Pen-Inje 20unit Tiago, 12/09/2017 ct s once M.D. daily, at same time every day; for blood sugar contro l Chikis Napierostar 09/11/2017 Hx Solution 100Unit/ML 15ml inject E11.65 Silcoff, - Pen-Inje 16unit Tiago, 11/24/2017 ct s once M.D. daily, at same time every day; for blood sugar contro l Chikis Beear 09/09/2017 Hx Solution 100Unit/ML inject E11.65 Silcoff, - Pen-Inje 15unit Tiago, 09/11/2017 ct s once M.D. daily, at same time every day; for blood sugar contro l Chikis Napierostar 08/28/2017 Hx Solution 100Unit/ML 15ml inject [...] needed for nasal draina ge Saline Nasal [place] 05/24/2016 Hx Solution 0.65% 132ml Use 5 J31.0 Sopchak, - times Yung, 09/28/2017 a day D.O. as needed for nasal conges tant. Hydrocodone 05/24/2016 Hx Suer 10-8mg/5ML 118ml take 5 R05 Sopchak, Polistirex/Chlorpheniram - millil Yung, ine Polistirex 06/03/2016 iters D.O. by mouth every 12 hours as needed for cough Escitalopram Oxalate 04/21/2016 Hx Tablets 10mg 30tabs 1/2 by F41.9 Silcorafal, - mouth Tiago, 10/13/2016 every M.D. day for 1 week then 1 tablet daily; for mood Bydureon 02/21/2016 Hx Pen 2mg 4units inject E11.65 Silcorafal, - 2mg Tiago, 08/28/2017 once M.D. weekly as direct ed for blood sugar contro l Bydureon 10/16/2015 Hx Pen 2mg 12units inject E11.65 Silcoff, - 2mg Tiago, 12/11/2015 once M.D. weekly as direct ed for blood sugar contro l Pen [place] 10/16/2015 Hx Misc 31G X 5 mm 25units use as E11.65 Silcoff , - direct Tiago, 08/28/2017 ed for M.D. admini strati on of Bydure on Neomycin/Polymyxin/Oran 09/21/2015 Hx Suspensi 3.5-29153- 10ml 4-5 H60.8x1 Rigoberto cortisone (Otic) - on 1 drops A. 10/01/2015 in Angelika, right Cha ear qid x 7days Glipizide ER 05/21/2015 Hx Tablets 5mg 180tabs take 1 E11.65 Silcoff, - ER 24HR tablet Tiago, 04/13/2018 by M.DMeaghan mouth 2x/day to lower blood sugar Metformin HCL ER 05/20/2015 Hx Tablets 500mg 270tabs 2 by E11.65 Silcoff, - ER 24HR mouth Tiago, 02/24/2018 every M.D. mornin g and 1 every evenin g; for blood sugar contro l E11. E11. Glipizide ER 02/14/2015 - Hx Tablets ER 5mg 90tabs take 1 E11. Silcoff, 05/21/2015 24HR tablet by Tiago mouth every M.D. morning to lower blood sugar Metformin HCL 02/14/2015 - Hx Tablets ER 500mg 360tabs take four . Silcoff, ER 05/20/2015 24HR tablets by Tiago mouth every M.D. evening; may split to 2 pills 2x/day if preferred E11. E11. Metformin HCL 06/16/2014 - Hx Tablets ER 500mg 360tabs take 3 . Silcoff, ER 02/14/2015 24HR tablets by shey Ordoñez every M.D. evening for 1 week then increase it to 4 pills/day E11. E11. Metformin 02/14/2014 - Hx Tablets ER 500mg [...] - Hx Misc 100units use as E11.65 Anel, 09/28/2017 directed Tiago (1-2x/day) Cha for monitoring blood sugar Glucometer 10/19/2013 - Hx 100units use 2x/day, E11.65 Silcoff, Test Strips 09/18/2017 before Tiago breakfast and M.D. before supper Metformin HCL 10/19/2013 - Hx Tablets ER 500 take 3 250.02 Silcoff, ER 10/26/2013 24HR mg tablets by Tiago mouth every M.D. evening 250.00 250.42 Clonazepam 10/05/2013 - Hx Tablets 0.5mg 15tabs 1/2-1 by mouth F41.9 Silcoff, 12/24/2015 three times a Cha Ordoñez day as needed for anxiety Ramipril 03/18/2013 - Hx Capsules 2.5mg 90caps take 1 capsule E11.21 Silcoff, 12/03/2017 every morning Cha Ordoñez for kidney protection Benzonatate 09/06/2012 - Hx Capsules 100mg 30caps 1-2 by mouth 786.2 Marysecorafal, 11/14/2012 three times a Cha Ordoñez day [...] Silcoff, 11/10/2011 by mouth Tiago, every evening M.DMeaghan for high cholesterol Omeprazole 04/24/2008 - Hx Capsules DR 20mg 30caps 1 po qd for 530.81 Silcoff, 05/24/2008 acid reflux Cha Ordoñez Lamictal 09/30/2005 - Hx Tablets 25mg 2 PO qd Unknown 05/27/2006 Zocor 05/05/2005 - Hx Tablets 40mg 90tabs 1 po qd for 272.0 Silcoff, 09/13/2010 high Tiago, cholesterol M.D. Paxil 09/27/2004 - Hx Tablets 40mg [...] Capsules 40mg 1 po bid Unknown 04/19/2003 [place] - Hx Capsules 300mg 1 po tid Unknown Carbonate 05/27/2006 Lipitor - Hx Tablets 20mg 90tabs 1 po qd with Silcoff, 05/05/2005 supper for high Cha Ordoñez cholesterol Immunizations CPT Code Status Date Vaccine Lot # 72041 Given 01/20/2018 Influenza Vaccine, Inactivated, Subunit, [id number] Adjuvanted, For Intrmusc 26344 Given 04/20/2017 Influenza Virus Vaccine, Quadrivalent, Split, [id number] Preservative Free 65567 Given 04/21/2016 Influenza Virus Vaccine, Quadrivalent, Split, [id number] Preservative Free 97685 Given 11/23/2015 Adacel or Boostrix, TDaP [id number] 12432 Given 10/16/2015 Prevnar 13 [id number] 71971 Given 02/14/2015 Influenza Vaccine Split Virus Preservative Free Im [id number] Use 05146 Given 02/14/2014 Flu, Split Virus 3Yrs [id number] 07906 Given 03/18/2013 Flu, Split Virus 3Yrs [id number] 83286 Given 11/10/2011 Pneumococcal Immunization [id number] Refused 08/28/2017 Shingrix Zoster (Shingles) Vaccine (HZV) Recomb,Subnit,Adjuvanted [id number] Refused 10/16/2015 Adacel or Boostrix, TDaP [id number] Refused 11/13/2014 Prevnar 13 [id number] Refused 04/24/2008 Zostavax [id number] Refused 04/24/2008 Adacel or Boostrix, TDaP Vital Signs Date Vital Result Comment 04/20/2018 10:12am BP Systolic 148 mmHg BP Diastolic 98 mmHg BP Systolic Recheck 106 mmHg R arm sitting BP Diastolic Recheck 70 mmHg R arm sitting Weight 249.00 lb 04/14/2018 10:42am BP Systolic 144 mmHg BP Diastolic 86 mmHg Weight 247.00 lb 04/09/2018 4:45pm BP Systolic 144 mmHg BP [...] Date Facility Test Result H/L Range Note Laboratory test 04/20/2018 In House Glucose 87 1 finding CBC Auto Diff 04/16/2018 [facility] White Blood 10.1 10^3/uL N 3.5- 10.8 [phone] Count Red Blood Count 5.39 10^6/uL N 4.00-5.40 Hemoglobin 14.6 g/dL N 14.0-18.0 Hematocrit 43 % N 42-52 Mean Corpuscular Volume 80 fL N 80-94 Mean Corpuscular Hemoglobin 27 pg N 27-31 Mean Corpuscular HGB Conc 34 g/dL N 31-36 Red Cell Distribution Width 16 % High 10.5-15 Platelet Count 324 10^3/uL N 150-450 Mean Platelet Volume 8.4 fL N 7.4-10.4 Abs Neutrophils 7.8 10^3/uL High 1.5-7.7 Abs Lymphocytes 1.1 10^3/uL N 1.0-4.8 Abs Monocytes 0.7 10^3/uL N 0-0.8 Abs Eosinophils 0.4 10^3/uL N 0-0.6 Abs Basophils 0.1 10^3/uL N 0-0.2 Abs Nucleated RBC 0 10^3/uL Granulocyte % 77.0 % Lymphocyte % 11.3 % Monocyte % 7.2 % Eosinophil % 3.9 % Basophil % 0.6 % Nucleated Red Blood Cells % 0 Comp Metabolic Panel 04/16/2018 [facility] Sodium 141 mmol/L N 135- 145 [phone] Potassium 4.6 mmol/L N 3.5-5.0 Chloride 109 mmol/L N 101-111 Co2 Carbon Dioxide 26 mmol/L N 22-32 Anion Gap 6 mmol/L N 2-11 Glucose 121 mg/dL High 70-100 Blood Urea Nitrogen 67 mg/dL High 6-24 Creatinine 2.59 mg/dL High 0.67-1.17 One Over Creatinine 0.38 mg/dL Low 0.67-1.17 BUN/Creatinine Ratio 25.9 High 8-20 Calcium 7.4 mg/dL Low 8.6-10.3 Total Protein 3.7 g/dL Low 6.4-8.9 Albumin 1.8 g/dL Low 3.2-5.2 Globulin 1.9 g/dL Low 2-4 Albumin/Globulin Ratio 0.9 Low 1-3 Total Bilirubin 0.20 mg/dL N 0.2-1.0 Alkaline Phosphatase 81 U/L N 34-104 Alt 61 U/L High 7-52 Ast 75 U/L High 13-39 Egfr Non- 24.4 >60 Egfr 29.6 >60 2 Laboratory test finding 04/16/2018 [facility] Phosphorus 4.4 mg/dL N 2.5-5.0 [phone] Magnesium 2.8 mg/dL High 1.9-2.7 Laboratory test 04/11/2018 [facility] Point of Care 159 mg/dL High 70 -100 3 finding [phone] Glucose Laboratory test 04/11/2018 [facility] Point of Care 32 mg/dL Low 70- 100 4 finding [phone] Glucose Urinalysis Profile 04/11/2018 [facility] Urine Color Yellow [phone] Urine Appearance Cloudy Urine Specific [place] 1.023 N 1.010-1.030 Urine pH 5.0 N 5-9 Urine Urobilinogen Negative Negative Urine Ketones Negative Negative Urine Protein 3+(>=500 mg/dL) Abnormal Negative Urine Leukocytes Negative Negative Urine Blood 3+ Abnormal Negative Urine Nitrite Negative Negative Urine Bilirubin Negative Negative Urine Glucose Negative Negative Urine White Blood Cell 2+(11-20/hpf) Abnormal Absent Urine Red Blood Cell 2+(6-10/hpf) Abnormal Absent Urine Bacteria Absent Absent Urine Hyaline Casts Present Abnormal Absent Urine Red Blood Cell Casts Present Abnormal Absent Urine Granular Casts Present Abnormal Absent Urine Culture And 04/11/2018 [facility] Urine Culture SEE RESULT 5 Sensitivities [phone] BELOW CBC Auto Diff 04/11/2018 [facility] White Blood 8.5 10^3/uL N 3.5- 10. [phone] Count 8 Red Blood Count 5.49 10^6/uL High 4.00-5.40 Hemoglobin 14.5 g/dL N 14.0-18.0 Hematocrit 44 % N 42-52 Mean Corpuscular Volume 80 fL N 80-94 Mean Corpuscular Hemoglobin 26 pg Low 27-31 Mean Corpuscular HGB Conc 33 g/dL N 31-36 Red Cell Distribution Width 16 % High 10.5-15 Platelet Count 403 10^3/uL N 150-450 Mean Platelet Volume 8.0 fL N 7.4-10.4 Abs Neutrophils 6.5 10^3/uL N 1.5-7.7 Abs Lymphocytes 1.0 10^3/uL N 1.0-4.8 Abs Monocytes 0.6 10^3/uL N 0-0.8 Abs Eosinophils 0.3 10^3/uL N 0-0.6 Abs Basophils 0 10^3/uL N 0-0.2 Abs Nucleated RBC 0 10^3/uL Granulocyte % 77.1 % Lymphocyte % 12.1 % Monocyte % 7.2 % Eosinophil % 3.0 % Basophil % 0.6 % Nucleated Red Blood Cells % 0 Laboratory test 04/11/2018 [facility] Partial 36.1 seconds N 26.0- 36.3 finding [phone] Thrombo Time PTT B-Type Natriuretic Peptide BNP 20 pg/mL <=100 Comp Metabolic Panel 04/11/2018 [facility] Sodium 138 mmol/L N 135- 145 [phone] Potassium 4.2 mmol/L N 3.5-5.0 Chloride 108 mmol/L N 101-111 Co2 Carbon Dioxide 25 mmol/L N 22-32 Anion Gap 5 mmol/L N 2-11 Blood Urea Nitrogen 59 mg/dL High 6-24 Creatinine 2.65 mg/dL High 0.67-1.17 BUN/Creatinine Ratio 22.3 High 8-20 Calcium 7.6 mg/dL Low 8.6-10.3 Total Protein 5.0 g/dL Low 6.4-8.9 Albumin 1.9 g/dL Low 3.2-5.2 Globulin 3.1 g/dL N 2-4 Albumin/Globulin Ratio 0.6 Low 1-3 Total Bilirubin 0.30 mg/dL N 0.2-1.0 Alkaline Phosphatase 84 U/L N 34-104 Alt 41 U/L N 7-52 Ast 76 U/L High 13-39 Egfr Non- 23.8 >60 Egfr 28.8 >60 6 Glucose 44 mg/dL Low 70-100 7 Laboratory test 04/11/2018 [facility] C Reactive Protein 3.23 mg/L N <8.01 finding [phone] Troponin-I (TnI) 0.03 ng/mL <0.04 8 CKMB 04/11/2018 [facility] CKMB ng/mL 44.5 ng/mL High 0.6-6.3 [phone] Laboratory test 04/11/2018 [facility] Lactic Acid 0.6 mmol/L N 0.5- 2.0 9 finding [phone] Total Protein 04/09/2018 [facility] Urine TP 2994 mg/dL 24HR Urine [phone] Concentration Urine Total Protein/24HR 09362 mg/24Hr High 0-165 Urine Collection Time 24 hr Urine Total Volume 925 mL Basic Metabolic Panel 04/07/2018 [facility] Sodium 143 mmol/L N 135- 145 [phone] Potassium 4.1 mmol/L N 3.5-5.0 Chloride 110 mmol/L N 101-111 Co2 Carbon Dioxide 27 mmol/L N 22-32 Anion Gap 6 mmol/L N 2-11 Glucose 60 mg/dL Low 70-100 Blood Urea Nitrogen 50 mg/dL High 6-24 Creatinine 2.55 mg/dL High 0.67-1.17 BUN/Creatinine Ratio 19.6 N 8-20 Calcium 7.4 mg/dL Low 8.6-10.3 Egfr Non- 24.9 >60 Egfr 30.1 >60 10 CBC Auto Diff 04/03/2018 [facility] White Blood Count 7.4 10^3/uL N 3.5-10.8 [phone] Red Blood Count 5.54 10^6/uL High 4.00-5.40 [...] % Nucleated Red Blood Cells % 0 Urine Culture And 04/03/2018 [facility] Urine Culture SEE RESULT 11 Sensitivities [phone] BELOW Urinalysis Profile 04/03/2018 [facility] Urine Color Yellow [phone] Urine Appearance Cloudy Urine Specific [place] 1.025 N 1.010-1.030 Urine pH 5.0 N [...] Present Abnormal Absent Comp Metabolic Panel 04/03/2018 [facility] Sodium 138 mmol/L N 135- 145 [phone] Potassium 3.6 mmol/L N 3.5-5.0 Chloride 106 [...] Egfr Non- 23.6 >60 Egfr 28.5 >60 12 Laboratory test 04/03/2018 [facility] TSH (Thyroid Stim 4.79 mcIU/mL N 0.34-5.60 finding [phone] Horm) Laboratory test 02/24/2018 In House Hemoglobin A1c 7.9 finding Laboratory test 12/10/2017 [facility] Surgical SEE RESULT 13 finding [phone] Pathology BELOW Laboratory test 11/24/2017 In House Hemoglobin A1c 8.0 finding Laboratory test 09/28/2017 [facility] Fructosamine 279 mcmol/L 200 - 285 14 finding [phone] Vitamin B12 752 pg/mL N 180-401 15 Methylmalonic Acid Mma 0.13 nmol/mL <=0.40 16 Laboratory test 08/28/2017 In House Hemoglobin A1c 8.1 finding Laboratory test 04/20/2017 In House Hemoglobin A1c 8.5 finding Laboratory test 04/20/2017 [facility] Vitamin B12 262 pg/mL N 180- 825 17 finding [phone] Laboratory test 04/20/2017 [facility] PSA Screening 0.815 0-4.0 18 finding [phone] ng/mL Urine Microalbumin 04/14/2017 [facility] Ur Microalbumin 60.3 mg/L Random [phone] (mg/L) Urine Creatinine 125.15 mg/dL Urine Microalbumin/Creatinine 48.1 ug/mg High <31 Lipid Profile (Trig/Chol/HDL) 04/14/2017 [facility] Triglycerides 97 mg /dL 19 [phone] Cholesterol 122 mg/dL 20 HDL Cholesterol 30.5 mg/dL 21 LDL Cholesterol 72 mg/dL 22 Laboratory test 04/14/2017 [facility] Alt (SGPT) 19 U/L N 7-52 finding [phone] Laboratory test 10/14/2016 In House Hemoglobin A1c 7.2 finding Laboratory test 04/21/2016 [facility] Alt (SGPT) 18 U/L N 7-52 23, 24 finding [phone] Lipid Profile 04/21/2016 [facility] Triglycerides 68 mg/dL N 25 (Trig/Chol/HDL) [phone] Cholesterol 111 mg/dL N 26 HDL Cholesterol 29.5 mg/dL N 27 LDL Cholesterol 68 mg/dL N 28 Basic Metabolic Panel 04/21/2016 [facility] Sodium 138 mmol/L N 133- 145 [phone] Potassium 4.4 mmol/L N 3.5-5.0 Chloride 106 mmol/L N 101-111 Co2 Carbon Dioxide 28 mmol/L N 22-32 Anion Gap 4 mmol/L N 2-11 Glucose 134 mg/dL High 70-100 Blood Urea Nitrogen 18 mg/dL N 6-24 Creatinine 1.09 mg/dL N 0.67-1.17 BUN/Creatinine Ratio 16.5 N 8-20 Calcium 9.3 mg/dL N 8.6-10.3 Egfr Non- 66.7 N >60 Egfr 85.8 N >60 29 Urine Microalbumin 04/21/2016 [facility] Urine Creatinine 197.10 mg/dL N Random [phone] Ur Microalbumin (mg/L) 35.5 mg/L N Urine Microalbumin/Creatinine 18.0 ug/mg N <31 Laboratory test 04/21/2016 In House Hemoglobin A1c 7.6 finding Laboratory test 12/12/2015 [facility] Surgical Pathology SEE RESULT 30, 31 finding [phone] BELOW Laboratory test 10/17/2015 [facility] Pathology SEE RESULT 32, 33 finding [phone] BELOW Laboratory test 10/16/2015 In House Hemoglobin A1c 7.2 finding Laboratory test 05/21/2015 [facility] PSA Screening 0.803 ng/mL N 0- 4.0 34 finding [phone] Urine Microalbumin 05/21/2015 [facility] Ur Microalbumin 41.0 mg/L N Random [phone] (mg/L) Urine Creatinine 148.81 mg/dL N Urine Microalbumin/Creatinine 27.5 ug/mg N <31 Laboratory test 05/21/2015 In House Hemoglobin A1c 7.8 finding Laboratory test 02/14/2015 In House Hemoglobin A1c 8.8 finding Laboratory test 12/12/2014 [facility] Surgical SEE RESULT 35 finding [phone] Pathology BELOW CBC Auto Diff 11/16/2014 [facility] White Blood Count 6.7 10^3/uL N 4.8-10. [phone] Red Blood Count 5.20 10^6/uL N 4.0-5.4 [...] Nucleated Red Blood Cells % 0.2 N Liver Function Panel 11/16/2014 [facility] Total Protein 6.6 g/dL N 6.4-8.9 [phone] Albumin 4.3 g/dL N 3.2-5.2 Globulin 2.3 g/dL N 2-4 Albumin/Globulin Ratio 1.9 N 1-3 Total Bilirubin 0.60 mg/dL N 0.2-1.0 Direct Bilirubin 0.10 mg/dL N 0.03-0.18 Indirect Bilirubin 0.5 mg/dL N 0.3-1.0 Alkaline Phosphatase 56 U/L N 34-104 Alt 20 U/L N 7-52 Ast 17 U/L N 13-39 Laboratory test 11/16/2014 [facility] Ferritin 42.3 ng/mL N 24-336 finding [phone] Laboratory test 11/13/2014 [facility] Alt (SGPT) 17 U/L N 7-52 finding [phone] Lipid Profile 11/13/2014 [facility] Triglycerides 116 mg/dL N 36 (Trig/Chol/HDL) [phone] Cholesterol 137 mg/dL N 37 HDL Cholesterol 29.9 mg/dL N 38 LDL Cholesterol 84 mg/dL N 39 Basic Metabolic Panel 11/13/2014 [facility] Sodium 138 mmol/L N 133- 145 [phone] Potassium 4.1 mmol/L N 3.5-5.0 Chloride 106 mmol/L N 101-111 Co2 Carbon Dioxide 27 mmol/L N 22-32 Anion Gap 5 mmol/L N 2-11 Glucose 128 mg/dL High 70-100 Blood Urea Nitrogen 20 mg/dL N 6-24 Creatinine 0.98 mg/dL N 0.67-1.17 BUN/Creatinine Ratio 20.4 High 8-20 Calcium 9.4 mg/dL N 8.6-10.3 Egfr Non- 75.6 N >60 Egfr 97.2 N >60 40 Laboratory test 11/13/2014 In House Hemoglobin A1c 8.6 finding Laboratory test 06/16/2014 In House Hemoglobin A1c 8.9 finding Urine Microalbumin 02/14/2014 [facility] Ur Microalbumin 29.0 mg/L N Random [phone] (mg/L) Urine Creatinine 154.78 mg/dL N Urine Microalbumin/Creatinine 18.7 N Less Than 31 Lipid Profile 02/14/2014 [facility] Triglycerides 100 mg/dL N 41 (Trig/Chol/HDL) [phone] Cholesterol 129 mg/dL N 42 HDL Cholesterol 32.4 mg/dL N 43 LDL Cholesterol 77 mg/dL N 44 Laboratory test finding 02/14/2014 In House Hemoglobin A1c 7.6 Urine Micro Inhouse 12/12/2013 In House Ua WBC - Ua RBC 1-2 Ua Casts - Ua Epi - Ua Other - Ua Glucose - Ua Bilirubin - Ua Ketones - Ua Specific [place] 1.020 Ua Blood mod Ua PH 6.0 Ua Protein tr Ua Urobilinogen - Ua Nitrite - Ua Leukocytes - Urinalysis Profile 11/21/2013 [facility] Urine Color Yellow N [phone] Urine Appearance Clear N Urine Specific [place] 1.017 N 1.010-1.030 Urine pH 5.0 N [...] 10/19/2013 In House Glucose Quantitative 199 finding Laboratory test 10/04/2013 [facility] Carcinoembryonic 7.1 ng/mL High 0.1-5. 45 finding [phone] Antigen 0 Hemoglobin A1c 9.1 % High Less than 6.0 46 CBC Auto Diff 10/04/2013 [facility] White Blood Count 6.3 10^3/uL N 4.8-10.8 [phone] Red Blood Count 5.22 10^6/uL N 4.0-5.4 [...] % 0 N Comp Metabolic Panel 10/04/2013 [facility] Sodium 140 mmol/L N 133- 145 [phone] Potassium 4.3 mmol/L N 3.7-5.6 Chloride 107 [...] 65.0 N >60 Egfr 83.6 N >60 47 Liver Function 10/04/2013 [facility] Direct Bilirubin 0.10 mg/dL N 0.03-0.18 Panel [phone] Indirect Bilirubin 0.5 mg/dL N 0.3-1.0 Surgical Pathology 09/28/2013 [facility] S RUN DATE: 48 [phone] 10/03/ <SEE NOTE> Laboratory test 03/18/2013 In House Hemoglobin A1c 8.0 finding Occult 11/18/2012 In House Misc neg x3 Blood,Triple Basic Metabolic 11/16/2012 [facility] Sodium 138 mmol/L 133-145 Panel [phone] Potassium 4.3 mmol/L 3.5-5.0 Chloride 105 mmol/L 101-111 Co2 Carbon Dioxide 28.0 mmol/L 22-32 Anion Gap 5.0 mmol/L 2-11 Glucose 141 mg/dL High 70-100 Blood Urea Nitrogen 21 mg/dL 6-24 Creatinine 1.00 mg/dL 0.50-1.40 BUN/Creatinine Ratio 21.0 High 8-20 Calcium 9.3 mg/dL 8.1-9.9 Egfr Non- 74.3 >60 Egfr 95.6 >60 49 Lipid Profile 11/16/2012 [facility] Triglycerides 74 mg/dL 40-200 (Trig/Chol/HDL) [phone] Cholesterol 153 mg/dL Less than 200 HDL Cholesterol 32 mg/dL Low 40-60 50 Cholesterol/HDL Ratio 4.8 Average High 1-4.44 LDL Cholesterol 106.2 High Less Than 100 51 Laboratory test 11/16/2012 [facility] Alt 23 U/L 14-54 52 finding [phone] CBC With Manual 11/16/2012 [facility] White Blood 6.4 10^3/uL 4.8- 10.8 Diff [phone] Count Red Blood Count 5.07 10^6/uL 4.0-5.4 [...] Lymph % 1 % 0-6 Hypochromasia 1+ [place] Cells 2+ Laboratory test 11/16/2012 [facility] PSA Screening 0.9 ng/mL 0-4.0 53 finding [phone] Laboratory test 11/15/2012 In House Hemoglobin A1c 7.6 finding Urine Microalbumin 11/15/2012 [facility] Ur Microalbumin 86.0 mg/L 54 Random [phone] ([phone]) Urine Creatinine 233.4 mg/dL Urine Microalbumin/Creatinine 36.8 High Less Than 31 Laboratory test finding 05/31/2012 In House Hemoglobin A1c 7.3 Lipid Profile 05/26/2012 [facility] Triglycerides 113 mg/dL 40-200 (Trig/Chol/HDL) [phone] Cholesterol 153 mg/dL Less than 200 HDL Cholesterol 34 mg/dL Low 40-60 55 Cholesterol/HDL Ratio 4.5 Average High 1-4.44 LDL Cholesterol 96.4 mg/dL Less Than 100 56 Laboratory test finding 05/26/2012 [facility] Alt 26 U/L 14-54 [phone] Laboratory test finding 11/10/2011 [facility] Alt (SGPT) 18 U/L 17- 63 [phone] Lipid Profile 11/10/2011 [facility] Triglyceride 127 mg/dL 40-200 (Trig/Chol/HDL) [phone] Cholesterol 200 mg/dL Less Than 200 57 High Density Lipoprotein 29 mg/dL Low 40-60 58 Cholesterol/HDL Ratio 6.90 AVERAGE High 1-4.97 Low Density Lipoprotein 146 mg/dL High Less Than 100 59 Urine Microalbumin 11/10/2011 [facility] Microalbumin (MG/L) 45.0 mg/L Random [phone] Urine Creatinine 134.4 mg/dL Tesfaye Alb/Creatinine Ratio 33.5 UG/MG High Less Than 30 60 Laboratory test 11/10/2011 In House Hemoglobin A1c 6.7 finding Laboratory test 12/13/2010 In House Hemoglobin A1c 6.8 finding Laboratory test 09/09/2010 [facility] Erythrocyte Sed Rate 4 MM/HR 0 -40 finding [phone] CPK (Creatine Kinase) 233 U/L High 0-200 C Reactive Protein < 0.5 mg/dL Less Than 0.5 Vitamin D, 25 09/09/2010 [facility] 25-Hydroxy Vitamin D2 <4.0 ng/mL () Hydroxy [phone] 25-Hydroxy Vitamin D3 28 ng/mL () 25-Hydroxy Vitamin D Total 28 ng/mL () 61 CBC Auto Diff 09/09/2010 [facility] White Blood Count 6.4 CUMM 4.8- 10.8 [phone] Red Cell Count 5.12 CUMM 4.6-6.2 Hemoglobin [...] Abs Basophils 0 0-0.2 Laboratory test 09/09/2010 [facility] TSH 1.81 MIU/ML 0.34-5.60 finding [phone] Lyme Western Blot 09/09/2010 [facility] Lyme Igg Negative Negative Specialty [phone] Western Blot Lyme Igg Bands Detected No bands detecte <SEE NOTE> kDa () 62 Lyme Igm Western Blot Negative Negative Lyme Igm Bands Detected No bands detecte <SEE NOTE> kDa () 63 Lyme Disease Interpretation . () 64 Laboratory test finding 03/27/2010 In House Hemoglobin A1c 6.8 Lipid Profile 11/26/2009 [facility] Triglyceride 102 mg/dL 40-200 (Trig/Chol/HDL) [phone] Cholesterol 167 mg/dL Less Than 200 65 High Density Lipoprotein 27 mg/dL Low 40-60 66 Cholesterol/HDL Ratio 6.19 AVERAGE High 1-4.97 Low Density Lipoprotein 120 mg/dL High Less Than 100 67 Laboratory test finding 11/26/2009 [facility] Alt (SGPT) 23 U/L 17- 63 [phone] Hemoglobin A1c 7.1 % High Less Than 6.0 68 Urine Microalbumin 11/26/2009 [facility] Microalbumin (MG/L) 38.0 mg/L Random [phone] Urine Creatinine 125.48 mg/dL Tesfaye Alb/Creatinine Ratio 30.2 UG/MG Less Than 30 69 Laboratory test finding 11/26/2009 [facility] PSA Screening 0.78 NG/ML 0-4 70 [phone] Glucose 55 mg/dL Low 70-100 71 Lipid Profile 07/25/2009 [facility] Triglyceride 66 mg/dL 40-200 (Trig/Chol/HDL) [phone] Cholesterol 175 mg/dL Less Than 200 72 High Density Lipoprotein 27 mg/dL Low 40-60 73 Cholesterol/HDL Ratio 6.48 AVERAGE High 1-4.97 Low Density Lipoprotein 135 mg/dL High Less Than 100 74 Laboratory test finding 07/25/2009 [facility] Alt (SGPT) 17 U/L 17- 63 [phone] Glucose 117 mg/dL High 70-100 75 Hemoglobin A1c 6.9 % High Less Than 6.0 76 Laboratory test 12/13/2008 [facility] Hemoglobin A1c 7.0 % High Less Than 77, 78 finding [phone] 6.0 Glucose 109 mg/dL High 70-100 79 Lipid Profile 07/17/2008 [facility] Triglyceride 114 mg/dL 40-200 (Trig/Chol/HDL) [phone] Cholesterol 161 mg/dL Less Than 200 80 High Density Lipoprotein 29 mg/dL Low 40-60 81 Cholesterol/HDL Ratio 5.55 AVERAGE High 1-4.97 Low Density Lipoprotein 109 mg/dL High Less Than 100 82 Liver Function Panel 07/17/2008 [facility] Total Protein 7.0 GM/DL 6.2-8.5 [phone] Albumin 4.0 GM/DL 3.2-5.2 Globulin 3.0 GM/DL 2-4 Albumin/Globulin Ratio 1.3 1-3 Bilirubin Total 0.9 mg/dL 0.4-1.5 Bilirubin Direct 0.2 mg/dL 0.1-0.5 Indirect Bilirubin 0.7 mg/dL 0.1-0.75 Alkaline Phosphatase 64 U/L 39-117 Alt (SGPT) 32 U/L 17-63 Ast (Sgot) 29 U/L 12-42 Basic Metabolic Panel 07/17/2008 [facility] Sodium 139 mmol/L 135- 145 [phone] Potassium 3.6 mmol/L 3.5-5.0 Chloride 106 mmol/L 101-111 Co2 (Carbon Dioxide) 28.0 mmol/L 22-32 Anion Gap 5.0 mmol/L 2-11 83 Glucose 133 mg/dL High 70-100 84 BUN 22 mg/dL 6-24 Creatinine 1.11 mg/dL 0.50-1.40 One Over Creatinine 0.90 BUN/Creatinine Ratio 19.8 8-20 Calcium 9.5 mg/dL 8.1-9.9 85 Laboratory test 07/17/2008 [facility] Hemoglobin A1c 7.2 % High <6.0 86 finding [phone] Lipid Profile 04/24/2008 [facility] Triglyceride 118 mg/dL 40-200 (Trig/Chol/HDL) [phone] Cholesterol 236 mg/dL High Less Than 200 87 High Density Lipoprotein 31 mg/dL Low 40-60 88 Cholesterol/HDL Ratio 7.61 AVERAGE High 1-4.97 Low Density Lipoprotein 181 mg/dL High Less Than 100 89 Liver Function Panel 04/24/2008 [facility] Total Protein 5.8 GM/DL Low 6.2-8.4 [phone] Albumin 3.7 GM/DL 3.2-5.2 Globulin 2.1 GM/DL 2-4 Albumin/Globulin Ratio 1.8 1-3 Bilirubin Total 0.7 mg/dL 0.4-1.5 Bilirubin Direct < 0.1 mg/dL Low 0.1-0.5 Indirect Bilirubin (SEE NOTE) mg/dL 0.1-0.75 90 Alkaline Phosphatase 63 U/L 39-117 Alt (SGPT) 22 U/L 17-63 Ast (Sgot) 20 U/L 12-42 Laboratory test 04/24/2008 [facility] PSA Screening 0.67 NG/ML 0-4 finding [phone] Lipid Profile 05/27/2006 [facility] Cholesterol/HDL 6.00 AVERAGE High 1-4.97 (Trig/Chol/HDL) [phone] Ratio Cholesterol 180 mg/dL Less Than 200 91 Triglyceride 136 mg/dL 40-200 High Density Lipoprotein 30 mg/dL Low 40-60 92 Low Density Lipoprotein 123 mg/dL High Less Than 100 93 Laboratory test 05/27/2006 [facility] Alt (SGPT) 28 U/L 17-63 finding [phone] Lipid Profile 2005 [facility] Cholesterol/HD 5.39 AVERAGE High 1-4.97 (Trig/Chol/HDL) [phone] L Ratio Cholesterol 167 mg/dL Less Than 200 94 Triglyceride 152 mg/dL 40-200 High Density Lipoprotein 31 mg/dL Low 40-60 95 Low Density Lipoprotein 106 mg/dL High Less Than 100 96 Laboratory test finding 2005 [facility] Alt (SGPT) 20 U/L 17- 10 [phone] PSA Screening 0.81 NG/ML 0.00-4.00 97 Laboratory test 09/27/2004 [facility] TSH 1.64 MIU/ML 0.34-5.60 finding [phone] Basic Metabolic Panel 09/27/2004 [facility] Anion Gap 7.0 mmol/L 2- 11 98 [phone] BUN 16 mg/dL 6-24 Calcium 9.6 mg/dL 8.7-10.2 Chloride 106 mmol/L 101-111 Co2 (Carbon Dioxide) 28.0 mmol/L 22-32 Creatinine 1.1 mg/dL 0.5-1.4 Glucose 97 mg/dL 70-105 Potassium 4.6 mmol/L 3.5-5.0 Sodium 141 mmol/L 135-145 BUN/Creatinine Ratio 14.5 8-20 Laboratory test 09/27/2004 [facility] [place] 0.8 mmol/L 0.5-1.5 finding [phone] Thyroxine Free 09/27/2004 [facility] Free Thyroxine 0.55 ng/dL Low 0.58-1.64 [phone] Laboratory test 09/27/2004 [facility] Alt (SGPT) 21 U/L 17-63 finding [phone] Lipid Profile 09/27/2004 [facility] Cholesterol/HD 5.61 AVERAGE High 1-4.97 (Trig/Chol/HDL) [phone] L Ratio Cholesterol 174 mg/dL Less Than 200 99 Triglyceride 113 mg/dL 40-200 High Density Lipoprotein 31 mg/dL Low 40-60 100 Low Density Lipoprotein 120 mg/dL High Less Than 100 101 Laboratory test finding 04/22/2004 [facility] Alt (SGPT) 26 U/L 17- 63 [phone] PSA Screening 0.5 NG/ML 0-4 102 Lipid Profile 04/22/2004 [facility] Cholesterol/HDL 4.91 1-4.97 (Trig/Chol/HDL) [phone] Ratio AVERAGE Cholesterol 172 mg/dL Less Than 200 103 Triglyceride 109 mg/dL 40-200 High Density Lipoprotein 35 mg/dL Low 40-60 104 Low Density Lipoprotein 115 mg/dL High Less Than 100 105 Liver Function Panel 11/17/2003 [facility] Albumin/Globulin Ratio 1.6 1-3 [phone] Albumin 3.9 GM/DL 3.6-5.4 Alkaline Phosphatase 55 U/L 39-117 Alt (SGPT) 16 U/L Low 17-63 Ast (Sgot) 19 U/L 12-42 Bilirubin Direct < 0.1 mg/dL Low 0.1-0.5 Globulin 2.4 GM/DL 2-4 106 Bilirubin Total 0.7 mg/dL 0.4-1.5 Total Protein 6.3 GM/DL 6.2-8.1 1 HS aware 2 Because ethnic data is not always readily [...] 15-29 5 Kidney failure <15 (or dialysis) 3 Chemical Processor: [id number] 4 Chemical Processor: [id number] 5 SEE RESULT BELOW Name: LEFTY HARDEN : [address]: Michoacano Ware MD Acct: [id number] Unit: [id number] AGE: 72 Location: [place] [address] Re04/11/18 SEX: M Status: ADM Janice SPEC: [id number] ROSCOE: 04/11/18-[address] [facility] [address]: Addison Daly MD REQ: [id number] RECD: 04/11/188871 STATUS: LUDWIG AIKEN DR: Tiago Tam MD _ SOURCE: URINE SPDESC: ORDERED: Urine Culture Procedure Result Reported Site Urine Culture Final 04/12/18- 1205 ML No Growth (<1,000 CFU/mL) * ML - Main Lab . END OF REPORT DEPARTMENT OF PATHOLOGY, [address] [place] [address] Miguel A Pino M.D. Director [facility] # [id number] 6 Because ethnic data is not always readily [...] 15-29 5 Kidney failure <15 (or dialysis) 7 Critical Result GLU:44 Called to [id number] at: 13:26:52 by:[id number] Read back by:[id number] 8 Troponin-I testing on Plasma Separator Tubes (PST) has a known false positive rate of 0.20-0.40%. All positive troponins reflex immediate secondary confirmatory testing. 9 [facility] Severe Sepsis and Septic Shock Management Bundle Measure requires all lactic acids initially measuring >2.0 mmol/L be repeated. 10 Because ethnic data is not always readily [...] 15-29 5 Kidney failure <15 (or dialysis) 11 SEE RESULT BELOW Name: LEFTY HARDEN : [address]: Matt Marti MD Acct: [id number] Unit: [id number] AGE: 72 Location: ED Re04/03/18 SEX: M Status: DEP ER SPEC: [id number] ROSCOE: 04/03/18-[address]: Matt Marti MD REQ: [id number] RECD: 04/03/18 STATUS: LUDWIG AIKEN DR: Tiago Tam MD _ SOURCE: URINE [facility]: ORDERED: Urine Culture Procedure Result Reported Site Urine Culture Final 04/05/18- 0946 ML No Growth (<1,000 CFU/mL) * ML - Main Lab . END OF REPORT DEPARTMENT OF PATHOLOGY, [address] [place] [address] Miguel A Pino M.D. Director [facility] # [id number] 12 Because ethnic data is not always readily [...] 15-29 5 Kidney failure <15 (or dialysis) 13 SEE RESULT BELOW Name: LEFTY HARDEN : [address]: Romeo Chavarria DO Acct: [id number] Unit: [id number] AGE: 72 Location: ENDO Re12/10/17 SEX: M Status: REG REF SPEC: [id number] ROSCOE: 12/10/17- [facility] DR: Romeo Chavarria DO REQ: [id number] RECD: 12/10/17-5 STATUS: LAN AIKEN DR: Tiago Tam MD [...] 1242 END OF REPORT DEPARTMENT OF PATHOLOGY, [address] [place] [address] Miguel A Pino M.D. Director [facility] # [id number] 14 Test Performed by: [address] [address] 15 Normal Range 180 to 914 Indeterminate Range 145 to 180 Deficient Range <145 16 ADDITIONAL INFORMATION This test was developed and its performance characteristics determined by [facility] in a manner consistent with CLIA requirements. This test has not been cleared or approved by the U.S. Food and Drug Administration. Test Performed by: [address] [address] 17 Normal Range 180 to 914 Indeterminate Range 145 to 180 Deficient Range <145 18 Serum levels of PSA measured using the [employer] DXI Hybritech immunoassay should not be interpreted as absolute evidence of the presence or absence of disease. The PSA value should be used in conjunction with other pertinent clinical diagnostic procedures. The values obtained with different assay methods or kits cannot be used interchangeably. 19 Desirable: <150 Borderline High: 150-199 High: 200-499 Very High: >500 20 Desirable: <200 Borderline High: 200-239 High: >239 21 Low: <40 Desirable: 40-60 High: >60 22 Desirable: <100 Near Optimal: 100-129 Borderline High: 130-159 High: 160-189 Very High: >189 23 FASTING 12 HOUR 24 FASTING 12 HOUR 25 Desirable <150 Borderline high 150-199 High 200-499 Very High >500 26 Desirable <200 Borderline high 200-239 High >239 27 Low <40 Desirable: 40-60 High: >60 28 Desirable: <100 mg/dL Near Optimal: 100-129 mg/dL Borderline High: 130-159 mg/dL High: 160-189 mg/dL Very High: >189 mg/dL 29 Because ethnic data is not always readily [...] 15-29 5 Kidney failure <15 (or dialysis) 30 [id number] 31 SEE RESULT BELOW Name: LEFTY HARDEN : [address]: Tiago Tam MD Acct: [id number] Unit: [id number] AGE: 70 Location: [facility] Re12/12/15 SEX: M Status: REG REF SPEC: [id number] ROSCOE: 12/12/15-[address]: Tiago Tam MD REQ: [id number] RECD: 12/12/155378 STATUS: SOUT _ ORDERED: LEVEL IV COMMENTS: [id number] FINAL DIAGNOSIS Skin, right mid forearm, excision: -- Scar, completely excised. -- No evidence of residual squamous cell carcinoma. COMMENT: The previous lesion at this site ([id number]) has been completely excised. CLINICAL HISTORY Presents [...] cassette A. Signed (signature on file) Brenda Plocharczyk, MD 12/20 1004 END OF REPORT * ML=Testing performed at Main Lab DEPARTMENT OF PATHOLOGY, [address] [place] [address] Miguel A Pino M.D. Director [facility] # [id number] 32 [id number] 33 SEE RESULT BELOW Name: LEFTY HARDEN : [address]: Tiago Tam MD Acct: [id number] Unit: [id number] AGE: 70 Location: [facility] Re10/17/15 SEX: M Status: REG REF SPEC: [id number] ROSCOE: 10/17/15-[address] [facility] [address]: Tiago Tam MD REQ: [id number] RECD: 10/18/15-8829 STATUS: SOUT _ ORDERED: LEVEL IV COMMENTS: [id number] FINAL DIAGNOSIS Skin, right forearm, biopsy: -- [...] performed at Main Lab DEPARTMENT OF PATHOLOGY, [address] [place] [address] Miguel A Pino M.D. Director [facility] # [id number] 34 Serum levels of PSA measured using the [employer] DXI Hybritech immunoassay should not be interpreted as absolute evidence of the presence or absence of disease. The PSA value should be used in conjunction with other pertinent clinical diagnostic procedures. The values obtained with different assay methods or kits cannot be used interchangeably. 35 SEE RESULT BELOW Name: LEFTY HARDEN : [address]: Constantin Hernandez MD Acct: [id number] Unit: [id number] AGE: 69 Location: ENDO Re12/12/14 SEX: M Status: REG REF SPEC: [id number] ROSCOE: 12/12/14- SUBM DR: Constantin Hernandez MD REQ: [id number] RECD: 12/12/14144 STATUS: LAN AIKEN DR: Tiago Tam MD [...] performed at Main Lab DEPARTMENT OF PATHOLOGY, [address] [place] [address] Miguel A Pino M.D. Director [facility] # [id number] 36 Desirable <150 Borderline high 150-199 High 200-499 Very High >500 37 Desirable <200 Borderline high 200-239 High >239 38 Low <40 Desirable: 40-60 High: >60 39 Desirable: <100 mg/dL Near Optimal: 100-129 mg/dL Borderline High: 130-159 mg/dL High: 160-189 mg/dL Very High: >189 mg/dL 40 Because ethnic data is not always [...] 5 Kidney failure <15 (or dialysis) 41 Desirable <150 Borderline high 150-199 High 200-499 Very High >500 42 Desirable <200 Borderline high 200-239 High >239 43 Low <40 Desirable: 40-60 High: >60 44 Desirable <100 Near Optimal 100-129 Borderline high 130-159 High 160-189 Very High >189 45 Nonsmokers: < 2.9 ng/mL Some smokers may have elevated CEA, usually <5.0 ng/mL. Serum markers are not specific for malignancy, and values may vary by method. The testing method is an immunoenzymatic assay team sports sales associate by [employer] performed on [employer] DXI 600. Do not interpret serum CEA levels as absolute evidence of the presence or the absence of malignant disease. Use serum CEA in conjunction with information from the clinical evaluation of the patient and other diagnostic procedures. 46 Therapeutic target for the treatment of diabetes Mellitus patients is <7% HBA1C, and in selective patients <6.0%.Please refer to [place] [employer] Diabetic care guidelines for further information. 47 Because ethnic data is not always readily [...] 15-29 5 Kidney failure <15 (or dialysis) 48 RUN DATE: 10/03/13 [facility] LAB LIVE PAGE 1 RUN TIME: [address] [place] [address] Specimen Inquiry Name: POOLLEFTY : [address]: Constantin Hernandez MD Acct: [id number] Unit: [id number] AGE: 68 Location: [facility] Re09/28/13 SEX: M Status: REG REF SPEC: [id number] ROSCOE: 09/28/13- SUBM DR: Constantin Hernandez MD REQ: [id number] RECD: 09/28/13-1612 STATUS: LAN AIKEN DR: Tiago Tam MD _ ORDERED: LEVEL IV/3 Dr. Pion has reviewed this case and concurs. Addendum [...] performed at Main Lab DEPARTMENT OF PATHOLOGY, [facility] [employer] [place], [place] [address] Miguel A Pino M.D. Director [facility] # [id number] RUN DATE: 10/03/13 [facility] LAB LIVE PAGE 2 RUN TIME: [address] [facility] [employer] [place], [place] [address] Specimen Inquiry Patient: LEFTY HARDEN [id number] (Continued) CLINICAL HISTORY (Continued) CLINICAL HISTORY Screening [...] performed at Main Lab DEPARTMENT OF PATHOLOGY, [address] [place] [address] Miguel A Pino M.D. Director [facility] # [id number] 49 Because ethnic data is not always readily [...] 15-29 5 Kidney failure <15 (or dialysis) 50 HDL Interpretation: Undesirable: High Risk: Less than 40 mg/dL Desirable: Low Risk: Greater than 60 mg/dL 51 LDL Interpretation: Low Risk Optimal Level: LDL Less than 100 mg/dL Near or Above Optimal: LDL 100-129 mg/dL Borderline High Risk: LDL 130-159 mg/dL High Risk: LDL 160-189 mg/dL Very High Risk: LDL Greater than 189 mg/dL 52 FASTING 53 Serum levels of PSA measured using the [employer] DXI Hybritech immunoassay should not be interpreted as absolute evidence of the presence or absence of disease. The PSA value should be used in conjunction with other pertinent clinical diagnostic procedures. The values obtained with different assay methods or kits cannot be used interchangeably. 54 Microalbuminuria in a random sample is defined as: Microalbumin/Creatinine ratio of 30-299 ug/mg. 55 HDL Interpretation: Undesirable: High Risk: Less than 40 MG/DL Desirable: Low Risk: Greater than 60 MG/DL 56 LDL Interpretation: Low Risk Optimal Level: LDL Less than 100 MG/DL Near or Above Optimal: LDL 100-129 MG/DL Borderline High Risk: LDL 130-159 MG/DL High Risk: LDL 160-189 MG/DL Very High Risk: LDL Greater than 189 MG/DL 57 CHOLESTEROL INTERPRETATION: Desirable: Less than 200 MG/DL Borderline-High Risk: 200-239 MG/DL High-Risk: 240 MG/DL and over 58 HDL INTERPRETATION: Undesirable: High Risk: Less than 40 MG/DL Desirable: Low Risk: Greater than 60 MG/DL 59 LDL INTERPRETATION: Low Risk Optimal Level: LDL Less than 100 MG/DL Near or Above Optimal: LDL 100-129 MG/DL Borderline High Risk: LDL 130-159 MG/DL High Risk: LDL 160-189 MG/DL Very High Risk: LDL Greater than 189 MG/DL 60 MICROALBUMINURIA IN A RANDOM SAMPLE IS DEFINED : MICROALBUMIN/CREATININE RATIO OF 30-299 ug/mg. . 61 -- REFERENCE VALUE -- 25-HYDROXY D TOTAL (D2+D3) Optimum levels in the normal population are 25-80 Test Performed by: [facility] Dpt of Lab Med and Pathology [address] [place] [address] Spa Manager/Esthetician: French Blackwell III, M.D. 62 No bands detected 63 No bands detected 64 Specific serologic response to B. burgdorferi infection [...] Test performed by immunoblot. Test Performed by: [facility] Dpt of Lab Med and Pathology [address] [place] [address] Spa Manager/Esthetician: French Blackwell III, M.D. 65 CHOLESTEROL INTERPRETATION: Desirable: Less than 200 MG/DL Borderline-High Risk: 200-239 MG/DL High-Risk: 240 MG/DL and over 66 HDL INTERPRETATION: Undesirable: High Risk: Less than 40 MG/DL Desirable: Low Risk: Greater than 60 MG/DL 67 LDL INTERPRETATION: Low Risk Optimal Level: LDL Less than 100 MG/DL Near or Above Optimal: LDL 100-129 MG/DL Borderline High Risk: LDL 130-159 MG/DL High Risk: LDL 160-189 MG/DL Very High Risk: LDL Greater than 189 MG/DL 68 THERAPEUTIC TARGET FOR THE TREATMENT OF DIABETES MELLITUS PATIENTS IS <7% HBA1C, AND IN SELECTIVE PATIENTS <6.0%. PLEASE REFER TO [place] [employer] DIABETIC CARE GUIDELINES FOR FURTHER INFORMATION. 69 MICROALBUMINURIA IN A RANDOM SAMPLE IS DEFINED : MICROALBUMIN/CREATININE RATIO OF 30-299 ug/mg. . 70 * SERUM LEVELS OF PSA MEASURED USING THE [employer] ACCESS HYBRITECH IMMUNOASSAY SHOULD NOT BE INTERPRETED ABSOLUTE EVIDENCE OF THE PRESENCE OR ABSENCE OF DISEASE. THE PSA VALUE SHOULD BE USED IN CONJUNCTION WITH OTHER PERTINENT CLINICAL DIAGNOSTIC PROCEDURES. 71 Note change in reference range as of 11/25/07. The change was based on recommendations from the [place] [employer]. 72 CHOLESTEROL INTERPRETATION: Desirable: Less than 200 MG/DL Borderline-High Risk: 200-239 MG/DL High-Risk: 240 MG/DL and over 73 HDL INTERPRETATION: Undesirable: High Risk: Less than 40 MG/DL Desirable: Low Risk: Greater than 60 MG/DL 74 LDL INTERPRETATION: Low Risk Optimal Level: LDL Less than 100 MG/DL Near or Above Optimal: LDL 100-129 MG/DL Borderline High Risk: LDL 130-159 MG/DL High Risk: LDL 160-189 MG/DL Very High Risk: LDL Greater than 189 MG/DL 75 Note change in reference range as of 11/25/07. The change was based on recommendations from the [place] [employer]. 76 THERAPEUTIC TARGET FOR THE TREATMENT OF DIABETES MELLITUS PATIENTS IS <7% HBA1C, AND IN SELECTIVE PATIENTS <6.0%. PLEASE REFER TO [place] [employer] DIABETIC CARE GUIDELINES FOR FURTHER INFORMATION. 77 FASTING 78 THERAPEUTIC TARGET FOR THE TREATMENT OF DIABETES MELLITUS PATIENTS IS <7% HBA1C, AND IN SELECTIVE PATIENTS <6.0%. PLEASE REFER TO [place] [employer] DIABETIC CARE GUIDELINES FOR FURTHER INFORMATION. 79 Note change in reference range as of 11/25/07. The change was based on recommendations from the [place] [employer]. 80 CHOLESTEROL INTERPRETATION: Desirable: Less than 200 MG/DL Borderline-High Risk: 200-239 MG/DL High-Risk: 240 MG/DL and over 81 HDL INTERPRETATION: Undesirable: High Risk: Less than 40 MG/DL Desirable: Low Risk: Greater than 60 MG/DL 82 LDL INTERPRETATION: Low Risk Optimal Level: LDL Less than 100 MG/DL Near or Above Optimal: LDL 100-129 MG/DL Borderline High Risk: LDL 130-159 MG/DL High Risk: LDL 160-189 MG/DL Very High Risk: LDL Greater than 189 MG/DL 83 Anion gap measurement may be of limited value in the presence of any alkalosis, especially in a combined acid base disorder. . 84 Note change in reference range as of 11/25/07. The change was based on recommendations from the [place] [employer]. 85 Please note change in reference range effective 07 . 86 THERAPEUTIC TARGET FOR THE TREATMENT OF DIABETES MELLITUS PATIENTS IS <7% HBA1C, AND IN SELECTIVE PATIENTS <6.0%. PLEASE REFER TO [employer] [employer] DIABETIC CARE GUIDELINES FOR FURTHER INFORMATION. 87 CHOLESTEROL INTERPRETATION: Desirable: Less than 200 MG/DL Borderline-High Risk: 200-239 MG/DL High-Risk: 240 MG/DL and over 88 HDL INTERPRETATION: Undesirable: High Risk: Less than 40 MG/DL Desirable: Low Risk: Greater than 60 MG/DL 89 LDL INTERPRETATION: Low Risk Optimal Level: LDL Less than 100 MG/DL Near or Above Optimal: LDL 100-129 MG/DL Borderline High Risk: LDL 130-159 MG/DL High Risk: LDL 160-189 MG/DL Very High Risk: LDL Greater than 189 MG/DL 90 UNABLE TO CALCULATE IND.BILI D.BILI IS <0.1 91 Classification: Desirable . 92 Classification: Low . 93 CALCULATED LDL APPROXIMATES THE VALUE OF A DIRECT LDL MEASUREMENT. Classification: Near or above optimal . 94 Classification: Desirable . 95 Classification: Low . 96 CALCULATED LDL APPROXIMATES THE VALUE OF A DIRECT LDL MEASUREMENT. Classification: Near or above optimal . 97 * SERUM LEVELS OF PSA MEASURED USING THE [employer] ACCESS HYBRITECH IMMUNOASSAY SHOULD NOT BE INTERPRETED ABSOLUTE EVIDENCE OF THE PRESENCE OR ABSENCE OF DISEASE. THE PSA VALUE SHOULD BE USED IN CONJUNCTION WITH OTHER PERTINENT CLINICAL DIAGNOSTIC PROCEDURES. 98 Anion gap measurement may be of limited value in the presence of any alkalosis, especially in a combined acid base disorder. . 99 Classification: Desirable . 100 Classification: Low . 101 CALCULATED LDL APPROXIMATES THE VALUE OF A DIRECT LDL MEASUREMENT. Classification: Near or above optimal . 102 * SERUM LEVELS OF PSA MEASURED USING THE [employer] ACCESS HYBRITECH IMMUNOASSAY SHOULD NOT BE INTERPRETED ABSOLUTE EVIDENCE OF THE PRESENCE OR ABSENCE OF DISEASE. THE PSA VALUE SHOULD BE USED IN CONJUNCTION WITH OTHER PERTINENT CLINICAL DIAGNOSTIC PROCEDURES. A PSA value in the range of 0.1 to 0.6 ng/ml is indeterminate if being used as an indicator of recurrent or residual disease. . 103 Classification: Desirable . 104 Classification: Low . 105 CALCULATED LDL APPROXIMATES THE VALUE OF A DIRECT LDL MEASUREMENT. Classification: Near or above optimal . 106 UNABLE TO CALCULATE IND.BILI D.BILI IS <0.1 Procedures Date Code Description Status 01/19/2018 98340 I & D Abscess Simple Completed 12/10/2017 16022359 Colonoscopy Completed 10/26/2017 240550469 Diabetic Retinal Eye Exam Completed 08/28/2017 28165 Electrocardiogram Complete Completed 04/20/2017 [id number] Diabetic Foot Exam Completed 04/20/2017 67072 Electrocardiogram Complete Completed 04/21/2016 88178 Electrocardiogram Complete Completed 12/11/2015 95172 Excise Malig Lesion .6-1CM Trunk/Arm/Leg Completed 10/17/2015 79985 Shave Skin Lesion .6-1CM Trunk/Arm/Leg Completed 11/13/2014 46022 Electrocardiogram Complete Completed 10/19/2013 70075 X-Ray Chest Two Views Completed 10/19/2013 96825 Electrocardiogram Complete Completed 11/15/2012 41041 Electrocardiogram Complete Completed 11/15/2012 88277 X-Ray Chest Two Views Completed 11/15/2012 05786 Destruction Premalignant Skin Lesions Completed 09/01/2012 43484 X-Ray Chest Two Views Completed 11/10/2011 69556 Electrocardiogram Complete Completed 11/10/2011 32985 Remove Impact Cerumen Requiring Instrument, Unilateral Completed 12/13/2010 21417 Visual Acuity Screening Test Completed 03/27/2010 92006 Electrocardiogram Complete Completed 01/01/2010 0 Payment Completed 09/27/2004 67275 Electrocardiogram Complete Completed 04/22/2004 98957 Remove Impact Cerumen Requiring Instrument, Unilateral Completed Encounters Type Date Location Provider Dx Diagnosis Office Visit 04/20/2018 Main Office Tiago Tam, N04.9 Nephrotic syndrome 10:00a M.D. with unspecified morphologic changes R60.1 Generalized edema E11.21 Type 2 diabetes mellitus with diabetic nephropathy Office Visit 04/14/2018 10:15a Main Office Tiago Tam, R60.1 Generalized edema M.D. N04.9 Nephrotic syndrome with unspecified morphologic changes E11.21 Type 2 diabetes mellitus with diabetic nephropathy E11.649 Type 2 diabetes mellitus with hypoglycemia without coma F41.9 Anxiety disorder, unspecified Office Visit 04/09/2018 5:00p Main Office Tiago Tam, R80.9 Proteinuria, M.D. unspecified R60.1 Generalized edema E11.21 Type 2 diabetes mellitus with diabetic nephropathy N28.9 Disorder of kidney and ureter, unspecified Office Visit 04/08/2018 2:45p Main Office Yung Jose, R80.9 Proteinuria, D.O. unspecified E11.21 Type 2 diabetes mellitus [...] diabetes M.D. 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 Office Visit 11/13/2014 3:30p Main Office Rhianna [...] Uncontrol Office Visit 02/14/2014 9:45a Main Office Silcoff, 250.42 Diabetes W/ Renal Cha Ordoñez Manifestations [...] Office Visit 11/02/2013 11:40a Main Office Kailee Slaughter, 709.9 Skin & Subcutaneous P.A. Tissue Disorders Unspec Office Visit 10/26/2013 4:45p Main Office Rhianna Tam.42 Diabetes W/ Renal [...] Tendinitis Achilles Office Visit 07/25/2009 Main Office Silcoff, 272.0 Hypercholesterolemia Pure 9:30a Cha Ordoñez 790.6 Abnormal Blood Chemistry Other Office Visit 12/12/2008 Main Office Radhaff, 790.6 Abnormal Blood Chemistry 1:15p Cha Ordoñez [...] Chest Other Office Visit 04/22/2004 Main Office Silcoff, 272.0 Hypercholesterolemia Pure 2:00p Cha Ordoñez 300.02 Anxiety Disorder Generalized 702.19 Seborrheic Keratosis Other 110.4 Dermatophytosis Foot 380.4 Impacted Cerumen V76.44 Screening For Malig Rodolfo Prostate Office Visit 11/10/2003 9:30a Main Office Sil[place]ff, 110.1 Dermatophytosis Nail Cha Ordoñez Office Visit [...] Tiago Tam, 300.02 Anxiety Disorder Cha Generalized 272.0 Hypercholesterolemia Pure 564.0 Constipation 332.1 Parkinsonism Secondary V76.49 Special Screening For Malignant Neoplasms, Other Sites Plan of Treatment Future Appointment(s):05/12/2018 9:45 am - Tiago Tam M.D. at Main [id number]/08/2018 - Yung Jose D.O.R80.9 Proteinuria, qkfvjzowhrsI00.21 Type 2 diabetes mellitus with diabetic fpenjxmxnjhW38.1 Generalized vwngtS61.9 Anxiety disorder, unspecified
--- OUTSIDE RECORDS SUMMARY | 2018-05-03 19:01 | XMS REPORT | Continuity of Care Document ---
:1945 External Reference #:[id number] Author Name Tiago Tam M.D. Address [address] [facility] [address] [place] [address] Care Team Providers Name Role Phone HCP given Primary Care Physician Unavailable Payers Type Date Identification Numbers Payment Provider Subscriber Policy Number: [id number] [facility] Lefty Harden PayID: [id number] [address] [place] [address] Policy Number: [id number] [facility] Lefty Harden PayID: [id number] [address] [place] [address] Advance Directives Description No Information Available Problems [...] Disease : (age 60 Father due to [place] smoker Years) Father Hypertension ? Father Hypercholesterolemia [...] Strength Qnty SIG Indications Ordering Provider Furosemide 04/19 Active Tablets 40mg 2 by mouth R60.1 Hesson, twice daily MD Eusebio Captopril 04/13 Active Tablets 12.5mg 1/2 tab tid E11.21 Vitamin B12 04/13 Active Tablets ER 1000mcg Lantus 12/26 Active Solution 100Unit/M 15ml inject 30units Anel Solostar Pen-Inject L once daily, at Tiago, same time M.DMeaghan every day; for blood sugar control Freestyle 09/28 Active Misc 100un use 1-2x/day E11. Anel Lancets its for blood Tiago sugar M.D. monitoring Freestyle 09/18 Active Strips 100un use 2x/day as E11.65 Marysecorafal Lite Test its directed for Tiago, monitoring M.D. blood sugar Pen [place] 08/28 Active Misc 31G X 8 100un use as E11. Marysecorafal, mm its directed Tiago, (once/day) for M.D. insulin administration Flonase 05/24 Active Suspension 50mcg/Act 47.40 2 sprays twice J31.0 Sopchak, Allergy 0ml a day until Yung, Relief better. D.O. Clonazepam 12/24 Active Tablets 0.5mg 60tab 1/2-1 by mouth F41.9 Silcoff, s 3x/day as Tiago, needed for M.D. anxiety Tamsulosin 02/07 Active Capsules 0.4mg daily CAS Fonseca MD Osiel Freestyle 28G 09/20 Active 100un Use as Silcoff Lancets its Directed 1-2 Tiago, Times A Day M.DMeaghan For Monitoring Blood Sugar Glucometer 10/19 Active 1unit use as E11.65 Silcorafal, s directed Cha Ordoñez Atorvastatin 06/02 Active Tablets 40mg 90tab 1 by mouth Silcoff, Calcium s every day for high Cha Ordoñez cholesterol (to replace crestor) Aspirin Ec 04/[address] 81mg 1 po qd for Silcorafal, heart disease Tiago prevention M.D. Furosemide 04/14 Hx Tablets 40mg 180ta 1 tablet R60.1 Silcoff, bs 2x/day Tiago, - M.D. 04/20 Furosemide 04/09 Hx Tablets 20mg 2 by mouth R60.1 Silcoff, every morning Tiago, - for edema M.D. 04/14 Furosemide 04/04 Hx Tablets 20mg 20tab 1 tablet by R60.1 Unknown s mouth daily - 04/09 Ondansetron 03/29 Hx Tablets 4mg 10tab 1 by mouth R11.0 Silcoff, HCL s every 4 hours Tiago, - as needed for M.D. 04/08 nausea Farxiga 03/05 Hx Tablets 5mg 90tab 1 tab by mouth E11.65 Silcoff, s every day for Tiago, - blood sugar M.D. 04/06 E11.21 E11.65 Tradjenta 02/24/2018 - Hx Tablets 5mg 90tabs 1 by mouth E11.65 Silcoff, 03/05/2018 every day for Cha Ordoñez blood sugar control E11.21 E11.65 Amoxicillin/Clavulanate 01/09/2018 Hx Tablets 875-125mg 20tabs 1 tab L03.313 Anel Potassium - by Tiago 01/19/2018 mouth M.D. twice a day x10 days Lantus Solostsara 12/09/2017 Hx Solution 100Unit/ML 15ml inject E11.65 Anel, - Pen-Inje 26unit Tiago, 12/26/2017 ct s once M.D. daily, at same time every day; for blood sugar contro l Lantus Solostar 11/24/2017 Hx Solution 100Unit/ML inject E11.65 Silcoff, - Pen-Inje 20unit Tiago, 12/09/2017 ct s once M.D. daily, at same time every day; for blood sugar contro l Lantus Solostar 09/11/2017 Hx Solution 100Unit/ML 15ml inject E11.65 Silcoff, - Pen-Inje 16unit Tigao, 11/24/2017 ct s once M.D. daily, at same time every day; for blood sugar contro l Polat Solostar 09/09/2017 Hx Solution 100Unit/ML inject E11.65 Silcoff, - Pen-Inje 15unit Tiago, 09/11/2017 ct s once M.D. daily, at same time every day; for blood sugar contro l Chikis Solostar 08/28/2017 Hx Solution 100Unit/ML 15ml inject [...] needed for nasal draina ge Saline Nasal [place] 05/24/2016 Hx Solution 0.65% 132ml Use 5 J31.0 Sopchak, - times Yung, 09/28/2017 a day D.O. as needed for nasal conges tant. Hydrocodone 05/24/2016 Hx Suer 10-8mg/5ML 118ml take 5 R05 Sopchak, Polistirex/Chlorpheniram - millil william Barragan Polistirex 06/03/2016 iters D.O. by mouth every 12 hours as needed for cough Escitalopram Oxalate 04/21/2016 Hx Tablets 10mg 30tabs 1/2 by F41.9 Anel, - mouth Tiago, 10/13/2016 every M.D. day [...] ed for blood sugar contro l Pen [place] 10/16/2015 Hx Misc 31G X 5 mm 25units use as E11.65 Silcoff , - direct Tiago, 08/28/2017 ed for M.D. admini strati on of Bydure on Neomycin/Polymyxin/Pine 09/21/2015 Hx Suspensi 3.5-72831- 10ml 4-5 H60.8x1 Rigoberto cortisone (Otic) - on 1 drops A. 10/01/2015 in [facility] right M.D. ear qid x 7days Glipizide ER 05/21/2015 Hx Tablets 5mg 180tabs take 1 E11.65 Silcorafal, - ER 24HR tablet Tiago, 04/13/2018 by MTed mouth 2x/day to lower blood sugar Metformin HCL ER 05/20/2015 Hx Tablets 500mg 270tabs 2 by E11.65 Anel, - ER 24HR mouth Tiago, 02/24/2018 every M.D. mornin g and 1 every evenin g; for blood sugar contro l E11.21 E11.65 Glipizide ER 02/14/2015 - Hx Tablets ER 5mg 90tabs take 1 E11.65 Marysecorafal, 05/21/2015 24HR tablet by shey Ordoñez [...] 02/14/2015 24HR tablets by shey Ordoñez every M.DMeaghan evening for 1 week then increase it [...] - Hx Misc 100units use as E11.65 Silli, 09/28/2017 directed Tiago (1-2x/day) Cha for monitoring blood sugar Glucometer 10/19/2013 - Hx 100units use 2x/day, E11.65 Silcoff, Test Strips 09/18/2017 before Tiago, breakfast and M.D. before supper Metformin HCL 10/19/2013 - Hx Tablets ER 500 take 3 250.02 Silcoff, ER 10/26/2013 24HR mg tablets by shey Ordoñez every M.D. evening 250.00 250.42 Clonazepam 10/05/2013 - Hx Tablets 0.5mg 15tabs 1/2-1 by mouth F41.9 Anel, 12/24/2015 three times a Cha Ordoñez day as needed for anxiety Ramipril 03/18/2013 - Hx Capsules 2.5mg 90caps take 1 capsule E11.21 Anel, 12/03/2017 every morning Cha Ordoñez for kidney protection Benzonatate 09/06/2012 - Hx Capsules 100mg 30caps 1-2 by mouth 786.2 Anel, 11/14/2012 three times a Cha Ordoñez day as needed for cough 486 Levofloxacin 09/01/2012 - Hx Tablets 750mg 10tabs 1 by mouth 486 Silcorafal, 09/11/2012 every day Tiago for M.D. pneumonia [...] po qd for 272.0 Silcoff, 09/13/2010 high Tiago cholesterol Cha Paxil 09/27/2004 - Hx Tablets 40mg 1.5 po qd Unknown 05/27/2006 Aspirin 09/27/2004 - Hx Tablets 81 1 PO qd For 272.0 Silcoff, 04/24/2008 Heart Disease Agustín Ordoñez M.D. Sporanox 11/10/2003 - Hx Capsules 100mg 112caps 2 po bid for 110.1 Silcoff, 03/09/2004 the first 7 osmin Ordoñez of every M.D. month for 4 cycles Clonazepam 03/06/2003 - Hx Tablets 0.5mg 1 po hs Silcoff, 05/27/2006 Cha Ordoñez Benztropine - Hx Tablets 2mg 1 po qd Unknown 04/19/2003 Paxil - Hx Tablets 40mg 1 and a 1/2 Unknown 09/27/2004 po qd Geodon - Hx Capsules 40mg 1 po bid Unknown 04/19/2003 [place] - Hx Capsules 300mg 1 po tid Unknown Carbonate 05/27/2006 Lipitor - Hx Tablets 20mg 90tabs 1 po qd with Silcoff, 05/05/2005 supper for high Cha Ordoñez cholesterol Immunizations CPT Code Status Date Vaccine Lot # [id number] Given 01/20/2018 Influenza Vaccine, Inactivated, Subunit, [id number] Adjuvanted, For Intrmusc 61683 Given 04/20/2017 Influenza Virus Vaccine, Quadrivalent, Split, [id number] Preservative Free 13795 Given 04/21/2016 Influenza Virus Vaccine, Quadrivalent, Split, [id number] Preservative Free 97288 Given 11/23/2015 Adacel or Boostrix, TDaP [id number] 46775 Given 10/16/2015 Prevnar 13 [id number] 28035 Given 02/14/2015 Influenza Vaccine Split Virus Preservative Free Im [id number] Use 36402 Given 02/14/2014 Flu, Split Virus 3Yrs [id number] 34225 Given 03/18/2013 Flu, Split Virus 3Yrs [id number] 59189 Given 11/10/2011 Pneumococcal Immunization [id number] Refused 08/28/2017 Shingrix Zoster (Shingles) Vaccine (HZV) Recomb,Subnit,Adjuvanted 35022 Refused 10/16/2015 Adacel or Boostrix, TDaP [id number] Refused 11/13/2014 Prevnar 13 [id number] Refused 04/24/2008 Zostavax [id number] Refused 04/24/2008 Adacel or Boostrix, TDaP Vital Signs Date Vital Result Comment 04/20/2018 10:12am BP Systolic 148 mmHg BP Diastolic 98 mmHg Weight 249.00 lb 04/14/2018 10:42am BP Systolic [...] Result H/L Range Note CBC Auto Diff 04/16/2018 [facility] White Blood 10.1 10^3/uL N 3.5- 10.8 [phone] Count Red Blood Count 5.39 10^6/uL N [...] Cells % 0 Comp Metabolic Panel 04/16/2018 [facility] Sodium 141 mmol/L N 135- 145 [phone] Potassium 4.6 mmol/L N 3.5-5.0 Chloride 109 [...] Egfr Non- 24.4 >60 Egfr 29.6 >60 1 Laboratory test finding 04/16/2018 [facility] Phosphorus 4.4 mg/dL N 2.5-5.0 [phone] Magnesium 2.8 mg/dL High 1.9-2.7 Laboratory test 04/11/2018 [facility] Point of Care 159 mg/dL High 70 -100 2 finding [phone] Glucose Laboratory test 04/11/2018 [facility] Point of Care 32 mg/dL Low 70- 100 3 finding [phone] Glucose Urinalysis Profile 04/11/2018 [facility] Urine Color Yellow [phone] Urine Appearance Cloudy Urine Specific [place] 1.023 N 1.010-1.030 Urine pH 5.0 N [...] Present Abnormal Absent Urine Culture And 04/11/2018 [facility] Urine Culture SEE RESULT 4 Sensitivities [phone] BELOW CBC Auto Diff 04/11/2018 [facility] White Blood 8.5 10^3/uL N 3.5- 10. [phone] Count 8 Red Blood Count 5.49 10^6/uL [...] Blood Cells % 0 Laboratory test 04/11/2018 [facility] Partial 36.1 seconds N 26.0- 36.3 finding [phone] Thrombo Time PTT B-Type Natriuretic Peptide BNP 20 pg/mL <=100 Comp Metabolic Panel 04/11/2018 [facility] Sodium 138 mmol/L N 135- 145 [phone] Potassium 4.2 mmol/L N 3.5-5.0 Chloride 108 [...] Egfr Non- 23.8 >60 Egfr 28.8 >60 5 Glucose 44 mg/dL Low 70-100 6 Laboratory test 04/11/2018 [facility] C Reactive Protein 3.23 mg/L N <8.01 finding [phone] Troponin-I (TnI) 0.03 ng/mL <0.04 7 CKMB 04/11/2018 [facility] CKMB ng/mL 44.5 ng/mL High 0.6-6.3 [phone] Laboratory test 04/11/2018 [facility] Lactic Acid 0.6 mmol/L N 0.5- 2.0 8 finding [phone] Total Protein 04/09/2018 [facility] Urine TP 2994 mg/dL 24HR Urine [phone] Concentration Urine Total Protein/24HR 09315 mg/24Hr High 0-165 Urine Collection Time 24 hr Urine Total Volume 925 mL Basic Metabolic Panel 04/07/2018 [facility] Sodium 143 mmol/L N 135- 145 [phone] Potassium 4.1 mmol/L N 3.5-5.0 Chloride 110 mmol/L N 101-111 Co2 Carbon Dioxide 27 mmol/L N 22-32 Anion Gap 6 mmol/L N 2-11 Glucose 60 mg/dL Low 70-100 Blood Urea Nitrogen 50 mg/dL High 6-24 Creatinine 2.55 mg/dL High 0.67-1.17 BUN/Creatinine Ratio 19.6 N 8-20 Calcium 7.4 mg/dL Low 8.6-10.3 Egfr Non- 24.9 >60 Egfr 30.1 >60 9 Urine Culture And 04/03/2018 [facility] Urine Culture SEE RESULT 10 Sensitivities [phone] BELOW Laboratory test 04/03/2018 [facility] TSH (Thyroid 4.79 mcIU/mL N 0.34-5. finding [phone] Stim Horm) 60 CBC Auto Diff 04/03/2018 [facility] White Blood 7.4 10^3/uL N 3.5- 10. [phone] Count 8 Red Blood Count 5.54 10^6/uL [...] Cells % 0 Comp Metabolic Panel 04/03/2018 [facility] Sodium 138 mmol/L N 135- 145 [phone] Potassium 3.6 mmol/L N 3.5-5.0 Chloride 106 [...] Egfr Non- 23.6 >60 Egfr 28.5 >60 11 Urinalysis Profile 04/03/2018 [facility] Urine Color Yellow [phone] Urine Appearance Cloudy Urine Specific [place] 1.025 N 1.010-1.030 Urine pH 5.0 N [...] Hemoglobin A1c 7.9 finding Laboratory test 12/10/2017 [facility] Surgical Pathology SEE RESULT 12 finding [phone] BELOW Laboratory test 11/24/2017 In House Hemoglobin A1c 8.0 finding Laboratory test 09/28/2017 [facility] Fructosamine 279 mcmol/L 200 - 285 13 finding [phone] Vitamin B12 752 pg/mL N 180-311 14 Methylmalonic Acid Mma 0.13 nmol/mL <=0.40 15 Laboratory test 08/28/2017 In House Hemoglobin A1c 8.1 finding Laboratory test 04/20/2017 In [place] Hemoglobin A1c 8.5 finding Laboratory test 04/20/2017 [facility] Vitamin B12 262 pg/mL N 180- 914 16 finding [phone] Laboratory test 04/20/2017 [facility] PSA Screening 0.815 0-4.0 17 finding [phone] ng/mL Urine Microalbumin 04/14/2017 [facility] Ur Microalbumin 60.3 mg/L Random [phone] (mg/L) Urine Creatinine 125.15 mg/dL Urine Microalbumin/Creatinine 48.1 ug/mg High <31 Lipid Profile (Trig/Chol/HDL) 04/14/2017 [facility] Triglycerides 97 mg /dL 18 [phone] Cholesterol 122 mg/dL 19 HDL Cholesterol 30.5 mg/dL 20 LDL Cholesterol 72 mg/dL 21 Laboratory test 04/14/2017 [facility] Alt (SGPT) 19 U/L N 7-52 finding [phone] Laboratory test 10/14/2016 In House Hemoglobin A1c 7.2 finding Laboratory test 04/21/2016 [facility] Alt (SGPT) 18 U/L N 7-52 22, 23 finding [phone] Lipid Profile 04/21/2016 [facility] Triglycerides 68 mg/dL N 24 (Trig/Chol/HDL) [phone] Cholesterol 111 mg/dL N 25 HDL Cholesterol 29.5 mg/dL N 26 LDL Cholesterol 68 mg/dL N 27 Basic Metabolic Panel 04/21/2016 [facility] Sodium 138 mmol/L N 133- 145 [phone] Potassium 4.4 mmol/L N 3.5-5.0 Chloride 106 mmol/L N 101-111 Co2 Carbon Dioxide 28 mmol/L N 22-32 Anion Gap 4 mmol/L N 2-11 Glucose 134 mg/dL High 70-100 Blood Urea Nitrogen 18 mg/dL N 6-24 Creatinine 1.09 mg/dL N 0.67-1.17 BUN/Creatinine Ratio 16.5 N 8-20 Calcium 9.3 mg/dL N 8.6-10.3 Egfr Non- 66.7 N >60 Egfr 85.8 N >60 28 Urine Microalbumin 04/21/2016 [facility] Urine Creatinine 197.10 mg/dL N Random [phone] Ur Microalbumin (mg/L) 35.5 mg/L N Urine Microalbumin/Creatinine 18.0 ug/mg N <31 Laboratory test 04/21/2016 In House Hemoglobin A1c 7.6 finding Laboratory test 12/12/2015 [facility] Surgical Pathology SEE RESULT 29, 30 finding [phone] BELOW Laboratory test 10/17/2015 [facility] Surgical Pathology SEE RESULT 31, 32 finding [phone] BELOW Laboratory test 10/16/2015 In House Hemoglobin A1c 7.2 finding Laboratory test 05/21/2015 [facility] PSA Screening 0.803 ng/mL N 0- 4.0 33 finding [phone] Laboratory test 05/21/2015 In House Hemoglobin A1c 7.8 finding Urine Microalbumin 05/21/2015 [facility] Ur Microalbumin 41.0 mg/L N Random [phone] (mg/L) Urine Creatinine 148.81 mg/dL N Urine Microalbumin/Creatinine 27.5 ug/mg N <31 Laboratory test 02/14/2015 In House Hemoglobin A1c 8.8 finding Laboratory test 12/12/2014 [facility] Surgical SEE RESULT 34 finding [phone] Pathology BELOW Laboratory test 11/16/2014 [facility] Ferritin 42.3 ng/mL N 24-336 finding [phone] Liver Function 11/16/2014 [facility] Total Protein 6.6 g/dL N 6.4- 8.9 Panel [phone] Albumin 4.3 g/dL N 3.2-5.2 Globulin 2.3 g/dL N 2-4 Albumin/Globulin Ratio 1.9 N 1-3 Total Bilirubin 0.60 mg/dL N 0.2-1.0 Direct Bilirubin 0.10 mg/dL N 0.03-0.18 Indirect Bilirubin 0.5 mg/dL N 0.3-1.0 Alkaline Phosphatase 56 U/L N 34-104 Alt 20 U/L N 7-52 Ast 17 U/L N 13-39 CBC Auto Diff 11/16/2014 [facility] White Blood Count 6.7 10^3/uL N 4.8-10.8 [phone] Red Blood Count 5.20 10^6/uL N 4.0-5.4 [...] A1c 8.6 finding Basic Metabolic Panel 11/13/2014 [facility] Sodium 138 mmol/L N 133- 145 [phone] Potassium 4.1 mmol/L N 3.5-5.0 Chloride 106 mmol/L N 101-111 Co2 Carbon Dioxide 27 mmol/L N 22-32 Anion Gap 5 mmol/L N 2-11 Glucose 128 mg/dL High 70-100 Blood Urea Nitrogen 20 mg/dL N 6-24 Creatinine 0.98 mg/dL N 0.67-1.17 BUN/Creatinine Ratio 20.4 High 8-20 Calcium 9.4 mg/dL N 8.6-10.3 Egfr Non- 75.6 N >60 Egfr 97.2 N >60 35 Lipid Profile 11/13/2014 [facility] Triglycerides 116 mg/dL N 36 (Trig/Chol/HDL) [phone] Cholesterol 137 mg/dL N 37 HDL Cholesterol 29.9 mg/dL N 38 LDL Cholesterol 84 mg/dL N 39 Laboratory test 11/13/2014 [facility] Alt (SGPT) 17 U/L N 7-52 finding [phone] Laboratory test 06/16/2014 In House Hemoglobin A1c 8.9 finding Urine Microalbumin 02/14/2014 [facility] Ur Microalbumin 29.0 mg/L N Random [phone] (mg/L) Urine Creatinine 154.78 mg/dL N Urine Microalbumin/Creatinine 18.7 N Less Than 31 Lipid Profile 02/14/2014 [facility] Triglycerides 100 mg/dL N 40 (Trig/Chol/HDL) [phone] Cholesterol 129 mg/dL N 41 HDL Cholesterol 32.4 mg/dL N 42 LDL Cholesterol 77 mg/dL N 43 Laboratory test finding 02/14/2014 In House Hemoglobin A1c 7.6 Urine Micro Inhouse 12/12/2013 In House Ua WBC - Ua RBC 1-2 Ua Casts - Ua Epi - Ua Other - Ua Glucose - Ua Bilirubin - Ua Ketones - Ua Specific Enterprise 1.020 Ua Blood mod Ua PH 6.0 Ua Protein tr Ua Urobilinogen - Ua Nitrite - Ua Leukocytes - Urinalysis Profile 11/21/2013 [facility] Urine Color Yellow N [phone] Urine Appearance Clear N Urine Specific [place] 1.017 N 1.010-1.030 Urine pH 5.0 N [...] Quantitative 199 finding CBC Auto Diff 10/04/2013 [facility] White Blood Count 6.3 N 4.8-10. [phone] 10^3/uL 8 Red Blood Count 5.22 10^6/uL [...] % 0 N Comp Metabolic Panel 10/04/2013 [facility] Sodium 140 mmol/L N 133- 145 [phone] Potassium 4.3 mmol/L N 3.7-5.6 Chloride 107 [...] 65.0 N >60 Egfr 83.6 N >60 44 Liver Function 10/04/2013 [facility] Direct Bilirubin 0.10 mg/dL N 0.03-0.18 Panel [phone] Indirect Bilirubin 0.5 mg/dL N 0.3-1.0 Laboratory 10/04/2013 [facility] Carcinoembryonic 7.1 ng/mL High 0.1- 5.0 45 test finding [phone] Antigen Hemoglobin A1c 9.1 % High Less than 6.0 46 Surgical Pathology 09/28/2013 [facility] S RUN DATE: 47 [phone] 10/03/ <SEE NOTE> Laboratory test 03/18/2013 In House Hemoglobin A1c 8.0 finding Occult 11/18/2012 In House Misc neg x3 Blood,Triple Basic Metabolic 11/16/2012 [facility] Sodium 138 mmol/L 133-145 Panel [phone] Potassium 4.3 mmol/L 3.5-5.0 Chloride 105 mmol/L 101-111 Co2 Carbon Dioxide 28.0 mmol/L 22-32 Anion Gap 5.0 mmol/L 2-11 Glucose 141 mg/dL High 70-100 Blood Urea Nitrogen 21 mg/dL 6-24 Creatinine 1.00 mg/dL 0.50-1.40 BUN/Creatinine Ratio 21.0 High 8-20 Calcium 9.3 mg/dL 8.1-9.9 Egfr Non- 74.3 >60 Egfr 95.6 >60 48 Lipid Profile 11/16/2012 [facility] Triglycerides 74 mg/dL 40-200 (Trig/Chol/HDL) [phone] Cholesterol 153 mg/dL Less than 200 HDL Cholesterol 32 mg/dL Low 40-60 49 Cholesterol/HDL Ratio 4.8 Average High 1-4.44 LDL Cholesterol 106.2 High Less Than 100 50 Laboratory test 11/16/2012 [facility] Alt 23 U/L 14-54 51 finding [phone] CBC With Manual 11/16/2012 [facility] White Blood 6.4 10^3/uL 4.8- 10.8 Diff [phone] Count Red Blood Count 5.07 10^6/uL 4.0-5.4 [...] Lymph % 1 % 0-6 Hypochromasia 1+ [place] Cells 2+ Laboratory test 11/16/2012 [facility] PSA Screening 0.9 ng/mL 0-4.0 52 finding [phone] Urine Microalbumin 11/15/2012 [facility] Ur Microalbumin 86.0 mg/L 53 Random [phone] (mg/L) Urine Creatinine 233.4 mg/dL Urine Microalbumin/Creatinine 36.8 High Less Than 31 Laboratory test finding 11/15/2012 In House Hemoglobin A1c 7.6 Laboratory test finding 05/31/2012 In House Hemoglobin A1c 7.3 Lipid Profile 05/26/2012 [facility] Triglycerides 113 mg/dL 40-200 (Trig/Chol/HDL) [phone] Cholesterol 153 mg/dL Less than 200 HDL Cholesterol 34 mg/dL Low 40-60 54 Cholesterol/HDL Ratio 4.5 Average High 1-4.44 LDL Cholesterol 96.4 mg/dL Less Than 100 55 Laboratory test finding 05/26/2012 [facility] Alt 26 U/L 14-54 [phone] Laboratory test finding 11/10/2011 [facility] Alt (SGPT) 18 U/L 17- 63 [phone] Lipid Profile 11/10/2011 [facility] Triglyceride 127 mg/dL 40-200 (Trig/Chol/HDL) [phone] Cholesterol 200 mg/dL Less Than 200 56 High Density Lipoprotein 29 mg/dL Low 40-60 57 Cholesterol/HDL Ratio 6.90 AVERAGE High 1-4.97 Low Density Lipoprotein 146 mg/dL High Less Than 100 58 Urine Microalbumin 11/10/2011 [facility] Microalbumin (MG/L) 45.0 mg/L Random [phone] Urine Creatinine 134.4 mg/dL Tesfaye Alb/Creatinine Ratio 33.5 UG/MG High Less Than 30 59 Laboratory test 11/10/2011 In House Hemoglobin A1c 6.7 finding Laboratory test 12/13/2010 In House Hemoglobin A1c 6.8 finding Laboratory test 09/09/2010 [facility] Erythrocyte Sed Rate 4 MM/HR 0 -40 finding [phone] CPK (Creatine Kinase) 233 U/L High 0-200 C Reactive Protein < 0.5 mg/dL Less Than 0.5 Vitamin D, 25 09/09/2010 [facility] 25-Hydroxy Vitamin D2 <4.0 ng/mL () Hydroxy [phone] 25-Hydroxy Vitamin D3 28 ng/mL () 25-Hydroxy Vitamin D Total 28 ng/mL () 60 CBC Auto Diff 09/09/2010 [facility] White Blood Count 6.4 CUMM 4.8- 10.8 [phone] Red Cell Count 5.12 CUMM 4.6-6.2 Hemoglobin [...] Abs Basophils 0 0-0.2 Laboratory test 09/09/2010 [facility] TSH 1.81 MIU/ML 0.34-5.60 finding [phone] Lyme Western Blot 09/09/2010 [facility] Lyme Igg Negative Negative Specialty [phone] Western Blot Lyme Igg Bands Detected No bands detecte <SEE NOTE> kDa () 61 Lyme Igm Western Blot Negative Negative Lyme Igm Bands Detected No bands detecte <SEE NOTE> kDa () 62 Lyme Disease Interpretation . () 63 Laboratory test finding 03/27/2010 In House Hemoglobin A1c 6.8 Lipid Profile 11/26/2009 [facility] Triglyceride 102 mg/dL 40-200 (Trig/Chol/HDL) [phone] Cholesterol 167 mg/dL Less Than 200 64 High Density Lipoprotein 27 mg/dL Low 40-60 65 Cholesterol/HDL Ratio 6.19 AVERAGE High 1-4.97 Low Density Lipoprotein 120 mg/dL High Less Than 100 66 Laboratory test finding 11/26/2009 [facility] Alt (SGPT) 23 U/L 17- 63 [phone] Hemoglobin A1c 7.1 % High Less Than 6.0 67 Urine Microalbumin 11/26/2009 [facility] Microalbumin (MG/L) 38.0 mg/L Random [phone] Urine Creatinine 125.48 mg/dL Tesfaye Alb/Creatinine Ratio 30.2 UG/MG Less Than 30 68 Laboratory test finding 11/26/2009 [facility] PSA Screening 0.78 NG/ML 0-4 69 [phone] Glucose 55 mg/dL Low 70-100 70 Lipid Profile 07/25/2009 [facility] Triglyceride 66 mg/dL 40-200 (Trig/Chol/HDL) [phone] Cholesterol 175 mg/dL Less Than 200 71 High Density Lipoprotein 27 mg/dL Low 40-60 72 Cholesterol/HDL Ratio 6.48 AVERAGE High 1-4.97 Low Density Lipoprotein 135 mg/dL High Less Than 100 73 Laboratory test finding 07/25/2009 [facility] Alt (SGPT) 17 U/L 17- 63 [phone] Glucose 117 mg/dL High 70-100 74 Hemoglobin A1c 6.9 % High Less Than 6.0 75 Laboratory test 12/13/2008 [facility] Hemoglobin A1c 7.0 % High Less Than 76, 77 finding [phone] 6.0 Glucose 109 mg/dL High 70-100 78 Lipid Profile 07/17/2008 [facility] Triglyceride 114 mg/dL 40-200 (Trig/Chol/HDL) [phone] Cholesterol 161 mg/dL Less Than 200 79 High Density Lipoprotein 29 mg/dL Low 40-60 80 Cholesterol/HDL Ratio 5.55 AVERAGE High 1-4.97 Low Density Lipoprotein 109 mg/dL High Less Than 100 81 Liver Function Panel 07/17/2008 [facility] Total Protein 7.0 GM/DL 6.2-8.5 [phone] Albumin 4.0 GM/DL 3.2-5.2 Globulin 3.0 GM/DL 2-4 Albumin/Globulin Ratio 1.3 1-3 Bilirubin Total 0.9 mg/dL 0.4-1.5 Bilirubin Direct 0.2 mg/dL 0.1-0.5 Indirect Bilirubin 0.7 mg/dL 0.1-0.75 Alkaline Phosphatase 64 U/L 39-117 Alt (SGPT) 32 U/L 17-63 Ast (Sgot) 29 U/L 12-42 Basic Metabolic Panel 07/17/2008 [facility] Sodium 139 mmol/L 135- 145 [phone] Potassium 3.6 mmol/L 3.5-5.0 Chloride 106 mmol/L 101-111 Co2 (Carbon Dioxide) 28.0 mmol/L 22-32 Anion Gap 5.0 mmol/L 2-11 82 Glucose 133 mg/dL High 70-100 83 BUN 22 mg/dL 6-24 Creatinine 1.11 mg/dL 0.50-1.40 One Over Creatinine 0.90 BUN/Creatinine Ratio 19.8 8-20 Calcium 9.5 mg/dL 8.1-9.9 84 Laboratory test 07/17/2008 [facility] Hemoglobin A1c 7.2 % High <6.0 85 finding [phone] Lipid Profile 04/24/2008 [facility] Triglyceride 118 mg/dL 40-200 (Trig/Chol/HDL) [phone] Cholesterol 236 mg/dL High Less Than 200 86 High Density Lipoprotein 31 mg/dL Low 40-60 87 Cholesterol/HDL Ratio 7.61 AVERAGE High 1-4.97 Low Density Lipoprotein 181 mg/dL High Less Than 100 88 Liver Function Panel 04/24/2008 [facility] Total Protein 5.8 GM/DL Low 6.2-8.1 [phone] Albumin 3.7 GM/DL 3.2-5.2 Globulin 2.1 GM/DL 2-4 Albumin/Globulin Ratio 1.8 1-3 Bilirubin Total 0.7 mg/dL 0.4-1.5 Bilirubin Direct < 0.1 mg/dL Low 0.1-0.5 Indirect Bilirubin (SEE NOTE) mg/dL 0.1-0.75 89 Alkaline Phosphatase 63 U/L 39-117 Alt (SGPT) 22 U/L 17-63 Ast (Sgot) 20 U/L 12-42 Laboratory test 04/24/2008 [facility] PSA Screening 0.67 NG/ML 0-4 finding [phone] Lipid Profile 05/27/2006 [facility] Cholesterol/HDL 6.00 AVERAGE High 1-4.97 (Trig/Chol/HDL) [phone] Ratio Cholesterol 180 mg/dL Less Than 200 90 Triglyceride 136 mg/dL 40-200 High Density Lipoprotein 30 mg/dL Low 40-60 91 Low Density Lipoprotein 123 mg/dL High Less Than 100 92 Laboratory test 05/27/2006 [facility] Alt (SGPT) 28 U/L 17-63 finding [phone] Lipid Profile 2005 [facility] Cholesterol/HD 5.39 AVERAGE High 1-4.97 (Trig/Chol/HDL) [phone] L Ratio Cholesterol 167 mg/dL Less Than 200 93 Triglyceride 152 mg/dL 40-200 High Density Lipoprotein 31 mg/dL Low 40-60 94 Low Density Lipoprotein 106 mg/dL High Less Than 100 95 Laboratory test finding 2005 [facility] Alt (SGPT) 20 U/L 51 [phone] PSA Screening 0.81 NG/ML 0.00-4.00 96 Basic Metabolic Panel 09/27/2004 [facility] Anion Gap 7.0 mmol/L 2- 11 97 [phone] BUN 16 mg/dL 6-24 Calcium 9.6 mg/dL 8.7-10.2 Chloride 106 mmol/L 101-111 Co2 (Carbon Dioxide) 28.0 mmol/L 22-32 Creatinine 1.1 mg/dL 0.5-1.4 Glucose 97 mg/dL 70-105 Potassium 4.6 mmol/L 3.5-5.0 Sodium 141 mmol/L 135-145 BUN/Creatinine Ratio 14.5 8-20 Laboratory test 09/27/2004 [facility] TSH 1.64 MIU/ML 0.34-5.60 finding [phone] Laboratory test 09/27/2004 [facility] [place] 0.8 mmol/L 0.5-1.5 finding [phone] Thyroxine Free 09/27/2004 [facility] Free Thyroxine 0.55 ng/dL Low 0.58-1.64 [phone] Laboratory test 09/27/2004 [facility] Alt (SGPT) 21 U/L 52 finding [phone] Lipid Profile 09/27/2004 [facility] Cholesterol/HD 5.61 AVERAGE High 1-4.97 (Trig/Chol/HDL) [phone] L Ratio Cholesterol 174 mg/dL Less Than 200 98 Triglyceride 113 mg/dL 40-200 High Density Lipoprotein 31 mg/dL Low 40-60 99 Low Density Lipoprotein 120 mg/dL High Less Than 100 100 Laboratory test finding 04/22/2004 [facility] Alt (SGPT) 26 U/L 49 [phone] PSA Screening 0.5 NG/ML 0-4 101 Lipid Profile 04/22/2004 [facility] Cholesterol/HDL 4.91 1-4.97 (Trig/Chol/HDL) [phone] Ratio AVERAGE Cholesterol 172 mg/dL Less Than 200 102 Triglyceride 109 mg/dL 40-200 High Density Lipoprotein 35 mg/dL Low 40-60 103 Low Density Lipoprotein 115 mg/dL High Less Than 100 104 Liver Function Panel 11/17/2003 [facility] Albumin/Globulin Ratio 1.6 1-3 [phone] Albumin 3.9 GM/DL 3.6-5.4 Alkaline Phosphatase 55 U/L 39-117 Alt (SGPT) 16 U/L Low 17-63 Ast (Sgot) 19 U/L 12-42 Bilirubin Direct < 0.1 mg/dL Low 0.1-0.5 Globulin 2.4 GM/DL 2-4 105 Bilirubin Total 0.7 mg/dL 0.4-1.5 Total Protein [...] 5 Kidney failure <15 (or dialysis) 2 Canvassing Manager: [id number] 3 Canvassing Manager: [id number] 4 SEE RESULT BELOW Name: LEFTY HARDEN : [address]: Michoacano Ware MD Acct: [id number] Unit: [id number] AGE: 72 Location: [facility] 401- Re04/11/18 SEX: M Status: ADM Janice SPEC: [id number] ROSCOE: 04/11/18-[address] [facility] [address]: Addison Daly MD REQ: [id number] RECD: 04/11/18 STATUS: LUDWIG AIKEN DR: Tiago Tam MD _ SOURCE: URINE SPDESC: ORDERED: Urine Culture Procedure Result Reported Site Urine Culture Final 04/12/18- 1205 ML No Growth (<1,000 CFU/mL) * ML - Main Lab . END OF REPORT DEPARTMENT OF PATHOLOGY, [address] [place] [address] Miguel A Pino M.D. Director [facility] # [id number] 5 Because ethnic data is not always readily [...] 15-29 5 Kidney failure <15 (or dialysis) 6 Critical Result GLU:44 Called to [id number] at: 13:26:52 by:[id number] Read back by:[id number] 7 Troponin-I testing on Plasma Separator Tubes (PST) has a known false positive rate of 0.20-0.40%. All positive troponins reflex immediate secondary confirmatory testing. 8 [facility] Severe Sepsis and Septic Shock Management Bundle Measure requires all lactic acids initially measuring >2.0 mmol/L be repeated. 9 Because ethnic data is not always readily [...] 15-29 5 Kidney failure <15 (or dialysis) 10 SEE RESULT BELOW Name: LEFTY HARDEN Marnie : [address]: Matt Marti MD Acct: [id number] Unit: [id number] AGE: 72 Location: ED Re04/03/18 SEX: M Status: DEP ER SPEC: [id number] ROSCOE: 04/03/[address]: Matt Marti MD REQ: [id number] RECD: 04/03/18 STATUS: LUDWIG AIKEN DR: Tiago Tam MD _ SOURCE: URINE SPDESC: ORDERED: Urine Culture Procedure Result Reported Site Urine Culture Final 04/05/18- 0946 ML No Growth (<1,000 CFU/mL) * ML - Main Lab . END OF REPORT DEPARTMENT OF PATHOLOGY, [address] [place] [address] Miguel A Pino M.D. Director [facility] # [id number] 11 Because ethnic data is not always readily [...] 15-29 5 Kidney failure <15 (or dialysis) 12 SEE RESULT BELOW Name: LEFTY HARDEN : [address]: Romeo Chavarria DO Acct: [id number] Unit: [id number] AGE: 72 Location: ENDO Re12/10/17 SEX: M Status: REG REF SPEC: [id number] ROSCOE: 12/10/17- SUBM DR: Romeo Chavarria DO REQ: [id number] RECD: 12/10/17 STATUS: LAN AIKEN DR: Tiago [...] 1242 END OF REPORT DEPARTMENT OF PATHOLOGY, [address] [place] [address] Miguel A Pino M.D. Director [facility] # [id number] 13 Test Performed by: [facility] - [address] [address] 14 Normal Range 180 to 914 Indeterminate Range 145 to 180 Deficient Range <145 15 ADDITIONAL INFORMATION This test was developed and its performance characteristics determined by [facility] in a manner consistent with CLIA requirements. This test has not been cleared or approved by the U.S. Food and Drug Administration. Test Performed by: [facility] - [address] [address] 16 Normal Range 180 to 914 Indeterminate Range 145 to 180 Deficient Range <145 17 Serum levels of PSA measured using the Roxanne [employer]ise DXI Hybritech immunoassay should not be interpreted as absolute evidence of the presence or absence of disease. The PSA value should be used in conjunction with other pertinent clinical diagnostic procedures. The values obtained with different assay methods or kits cannot be used interchangeably. 18 Desirable: <150 Borderline High: 150-199 High: 200-499 Very High: >500 19 Desirable: <200 Borderline High: 200-239 High: >239 20 Low: <40 Desirable: 40-60 High: >60 21 Desirable: <100 Near Optimal: 100-129 Borderline High: 130-159 High: 160-189 Very High: >189 22 FASTING 12 HOUR 23 FASTING 12 HOUR 24 Desirable <150 Borderline high 150-199 High 200-499 Very High >500 25 Desirable <200 Borderline high 200-239 High >239 26 Low <40 Desirable: 40-60 High: >60 27 Desirable: <100 mg/dL Near Optimal: 100-129 mg/dL Borderline High: 130-159 mg/dL High: 160-189 mg/dL Very High: >189 mg/dL 28 Because ethnic data is not always readily [...] 15-29 5 Kidney failure <15 (or dialysis) 29 [id number] 30 SEE RESULT BELOW Name: POOLLEFTY : [address]: Tiago Tam MD Acct: [id number] Unit: [id number] AGE: 70 Location: [facility] Re12/12/15 SEX: M Status: REG REF SPEC: [id number] ROSCOE: 12/12/15-[address] [facility] [address]: Tiago Tam MD REQ: [id number] RECD: 12/12/15-6611 STATUS: SOUT _ ORDERED: LEVEL IV COMMENTS: [id number] FINAL DIAGNOSIS Skin, right mid forearm, excision: -- Scar, completely excised. -- No evidence of residual squamous cell carcinoma. COMMENT: The previous lesion at this site ([id number]) has been completely excised. CLINICAL HISTORY Presents [...] performed at Main Lab DEPARTMENT OF PATHOLOGY, [address] [place] [address] Miguel A Pino M.D. Director [facility] # [id number] 31 [id number] 32 SEE RESULT BELOW Name: LEFTY HARDEN : [address]: Tiago Tam MD Acct: [id number] Unit: [id number] AGE: 70 Location: [facility] Re10/17/15 SEX: M Status: REG REF SPEC: [id number] ROSCOE: 10/17/15-[address] [facility] [address]: Tiago Tam MD REQ: [id number] RECD: 10/18/15-1250 STATUS: SOUT _ ORDERED: LEVEL IV COMMENTS: [id number] FINAL DIAGNOSIS Skin, right forearm, biopsy: -- [...] performed at Main Lab DEPARTMENT OF PATHOLOGY, [address] [place] [address] Miguel A Pino M.D. Director [facility] # [id number] 33 Serum levels of PSA measured using the Roxanne [employer]ise DXI Hybritech immunoassay should not be interpreted as absolute evidence of the presence or absence of disease. The PSA value should be used in conjunction with other pertinent clinical diagnostic procedures. The values obtained with different assay methods or kits cannot be used interchangeably. 34 SEE RESULT BELOW Name: LEFTY HARDEN : [address]: Constantin Hernandez MD Acct: [id number] Unit: [id number] AGE: 69 Location: ENDO Re12/12/14 SEX: M Status: REG REF SPEC: [id number] ROSCOE: 12/12/14- [facility] DR: Constantin Hernandez MD REQ: [id number] RECD: 12/12/147639 STATUS: LAN AIKEN DR: Tiago Tam MD [...] performed at Main Lab DEPARTMENT OF PATHOLOGY, [address] [place] [address] Miguel A Pino M.D. Director [facility] # [id number] 35 Because ethnic data is not always [...] 5 Kidney failure <15 (or dialysis) 36 Desirable <150 Borderline high 150-199 High 200-499 Very High >500 37 Desirable <200 Borderline high 200-239 High >239 38 Low <40 Desirable: 40-60 High: >60 39 Desirable: <100 mg/dL Near Optimal: 100-129 mg/dL Borderline High: 130-159 mg/dL High: 160-189 mg/dL Very High: >189 mg/dL 40 Desirable <150 Borderline high 150-199 High 200-499 Very High >500 41 Desirable <200 Borderline high 200-239 High >239 42 Low <40 Desirable: 40-60 High: >60 43 Desirable <100 Near Optimal 100-129 Borderline high 130-159 High 160-189 Very High >189 44 Because ethnic data is not always readily [...] 15-29 5 Kidney failure <15 (or dialysis) 45 Nonsmokers: < 2.9 ng/mL Some smokers may have elevated CEA, usually <5.0 ng/mL. Serum markers are not specific for malignancy, and values may vary by method. The testing method is an immunoenzymatic assay veterinary radiologist by RMI performed on RMI DXI 600. Do not interpret serum CEA levels as absolute evidence of the presence or the absence of malignant disease. Use serum CEA in conjunction with information from the clinical evaluation of the patient and other diagnostic procedures. 46 Therapeutic target for the treatment of diabetes Mellitus patients is <7% HBA1C, and in selective patients <6.0%.Please refer to [place] [employer] Diabetic care guidelines for further information. 47 RUN DATE: 10/03/13 [facility] LAB LIVE PAGE 1 RUN TIME: [address] [place], [place] [address] Specimen Inquiry Name: LEFTY HARDEN : [address]: Constantin Hernandez MD Acct: [id number] Unit: [id number] AGE: 68 Location: [facility] Re09/28/13 SEX: M Status: REG REF SPEC: [id number] ROSCOE: 09/28/13- SUBM DR: Constantin Hernandez MD REQ: [id number] RECD: 09/28/13 STATUS: LAN AIKEN DR: Tiago [...] performed at Main Lab DEPARTMENT OF PATHOLOGY, [facility] [employer] [place] [address] Miguel A Pino M.D. Director [facility] # [id number] RUN DATE: 10/03/13 [facility] LAB LIVE PAGE 2 RUN TIME: 1520 [facility] [place] [place], [place] [address] Specimen Inquiry Patient: POOLLEFTY [id number] (Continued) CLINICAL HISTORY (Continued) CLINICAL HISTORY Screening [...] performed at Main Lab DEPARTMENT OF PATHOLOGY, [address] [place] [address] Miguel A Pino M.D. Director [facility] # [id number] 48 Because ethnic data is not always readily [...] 15-29 5 Kidney failure <15 (or dialysis) 49 HDL Interpretation: Undesirable: High Risk: Less than 40 mg/dL Desirable: Low Risk: Greater than 60 mg/dL 50 LDL Interpretation: Low Risk Optimal Level: LDL Less than 100 mg/dL Near or Above Optimal: LDL 100-129 mg/dL Borderline High Risk: LDL 130-159 mg/dL High Risk: LDL 160-189 mg/dL Very High Risk: LDL Greater than 189 mg/dL 51 FASTING 52 Serum levels of PSA measured using the RMI DXI Hybritech immunoassay should not be interpreted as absolute evidence of the presence or absence of disease. The PSA value should be used in conjunction with other pertinent clinical diagnostic procedures. The values obtained with different assay methods or kits cannot be used interchangeably. 53 Microalbuminuria in a random sample is defined as: Microalbumin/Creatinine ratio of 30-299 ug/mg. 54 HDL Interpretation: Undesirable: High Risk: Less than 40 MG/DL Desirable: Low Risk: Greater than 60 MG/DL 55 LDL Interpretation: Low Risk Optimal Level: LDL Less than 100 MG/DL Near or Above Optimal: LDL 100-129 MG/DL Borderline High Risk: LDL 130-159 MG/DL High Risk: LDL 160-189 MG/DL Very High Risk: LDL Greater than 189 MG/DL 56 CHOLESTEROL INTERPRETATION: Desirable: Less than 200 MG/DL Borderline-High Risk: 200-239 MG/DL High-Risk: 240 MG/DL and over 57 HDL INTERPRETATION: Undesirable: High Risk: Less than 40 MG/DL Desirable: Low Risk: Greater than 60 MG/DL 58 LDL INTERPRETATION: Low Risk Optimal Level: LDL Less than 100 MG/DL Near or Above Optimal: LDL 100-129 MG/DL Borderline High Risk: LDL 130-159 MG/DL High Risk: LDL 160-189 MG/DL Very High Risk: LDL Greater than 189 MG/DL 59 MICROALBUMINURIA IN A RANDOM SAMPLE IS DEFINED : MICROALBUMIN/CREATININE RATIO OF 30-299 ug/mg. . 60 -- REFERENCE VALUE -- 25-HYDROXY D TOTAL (D2+D3) Optimum levels in the normal population are 25-80 Test Performed by: [facility] Dpt of Lab Med and Pathology [address] [place] [address] External Grinder Tender: French Blackwell III, M.D. 61 No bands detected 62 No bands detected 63 Specific serologic response to B. burgdorferi infection [...] Test performed by immunoblot. Test Performed by: [facility] Dpt of Lab Med and Pathology [address] [place] [address] External Grinder Tender: French Blackwell III, M.D. 64 CHOLESTEROL INTERPRETATION: Desirable: Less than 200 MG/DL Borderline-High Risk: 200-239 MG/DL High-Risk: 240 MG/DL and over 65 HDL INTERPRETATION: Undesirable: High Risk: Less than 40 MG/DL Desirable: Low Risk: Greater than 60 MG/DL 66 LDL INTERPRETATION: Low Risk Optimal Level: LDL Less than 100 MG/DL Near or Above Optimal: LDL 100-129 MG/DL Borderline High Risk: LDL 130-159 MG/DL High Risk: LDL 160-189 MG/DL Very High Risk: LDL Greater than 189 MG/DL 67 THERAPEUTIC TARGET FOR THE TREATMENT OF DIABETES MELLITUS PATIENTS IS <7% HBA1C, AND IN SELECTIVE PATIENTS <6.0%. PLEASE REFER TO [place] [employer] DIABETIC CARE GUIDELINES FOR FURTHER INFORMATION. 68 MICROALBUMINURIA IN A RANDOM SAMPLE IS DEFINED : MICROALBUMIN/CREATININE RATIO OF 30-299 ug/mg. . 69 * SERUM LEVELS OF PSA MEASURED USING THE [employer] ACCESS HYBRITECH IMMUNOASSAY SHOULD NOT BE INTERPRETED ABSOLUTE EVIDENCE OF THE PRESENCE OR ABSENCE OF DISEASE. THE PSA VALUE SHOULD BE USED IN CONJUNCTION WITH OTHER PERTINENT CLINICAL DIAGNOSTIC PROCEDURES. 70 Note change in reference range as of 11/25/07. The change was based on recommendations from the [place] [employer]. 71 CHOLESTEROL INTERPRETATION: Desirable: Less [...] Risk: LDL Greater than 189 MG/DL 74 Note change in reference range as of 11/25/07. The change was based on recommendations from the [place] [employer]. 75 THERAPEUTIC TARGET FOR THE TREATMENT OF DIABETES MELLITUS PATIENTS IS <7% HBA1C, AND IN SELECTIVE PATIENTS <6.0%. PLEASE REFER TO [place] [employer] DIABETIC CARE GUIDELINES FOR FURTHER INFORMATION. 76 FASTING 77 THERAPEUTIC TARGET FOR THE TREATMENT OF DIABETES MELLITUS PATIENTS IS <7% HBA1C, AND IN SELECTIVE PATIENTS <6.0%. PLEASE REFER TO [place] [employer] DIABETIC CARE GUIDELINES FOR FURTHER INFORMATION. 78 Note change in reference range as of 11/25/07. The change was based on recommendations from the [place] [employer]. 79 CHOLESTEROL INTERPRETATION: Desirable: Less than 200 MG/DL Borderline-High Risk: 200-239 MG/DL High-Risk: 240 MG/DL and over 80 HDL INTERPRETATION: Undesirable: High Risk: Less than 40 MG/DL Desirable: Low Risk: Greater than 60 MG/DL 81 LDL INTERPRETATION: Low Risk Optimal Level: LDL Less than 100 MG/DL Near or Above Optimal: LDL 100-129 MG/DL Borderline High Risk: LDL 130-159 MG/DL High Risk: LDL 160-189 MG/DL Very High Risk: LDL Greater than 189 MG/DL 82 Anion gap measurement may be of limited value in the presence of any alkalosis, especially in a combined acid base disorder. . 83 Note change in reference range as of 11/25/07. The change was based on recommendations from the [place] [employer]. 84 Please note change in reference range effective 07 . 85 THERAPEUTIC TARGET FOR THE TREATMENT OF DIABETES MELLITUS PATIENTS IS <7% HBA1C, AND IN SELECTIVE PATIENTS <6.0%. PLEASE REFER TO [place] [employer] DIABETIC CARE GUIDELINES FOR FURTHER INFORMATION. 86 CHOLESTEROL INTERPRETATION: Desirable: Less than 200 MG/DL Borderline-High Risk: 200-239 MG/DL High-Risk: 240 MG/DL and over 87 HDL INTERPRETATION: Undesirable: High Risk: Less than 40 MG/DL Desirable: Low Risk: Greater than 60 MG/DL 88 LDL INTERPRETATION: Low Risk Optimal Level: LDL Less than 100 MG/DL Near or Above Optimal: LDL 100-129 MG/DL Borderline High Risk: LDL 130-159 MG/DL High Risk: LDL 160-189 MG/DL Very High Risk: LDL Greater than 189 MG/DL 89 UNABLE TO CALCULATE IND.BILI D.BILI IS <0.1 90 Classification: Desirable . 91 Classification: Low . 92 CALCULATED LDL APPROXIMATES THE VALUE OF A DIRECT LDL MEASUREMENT. Classification: Near or above optimal . 93 Classification: Desirable . 94 Classification: Low . 95 CALCULATED LDL APPROXIMATES THE VALUE OF A DIRECT LDL MEASUREMENT. Classification: Near or above optimal . 96 * SERUM LEVELS OF PSA MEASURED USING THE [employer] ACCESS HYBRITECH IMMUNOASSAY SHOULD NOT BE INTERPRETED ABSOLUTE EVIDENCE OF THE PRESENCE OR ABSENCE OF DISEASE. THE PSA VALUE SHOULD BE USED IN CONJUNCTION WITH OTHER PERTINENT CLINICAL DIAGNOSTIC PROCEDURES. 97 Anion gap measurement may be of limited value in the presence of any alkalosis, especially in a combined acid base disorder. . 98 Classification: Desirable . 99 Classification: Low . 100 CALCULATED LDL APPROXIMATES THE VALUE OF A DIRECT LDL MEASUREMENT. Classification: Near or above optimal . 101 * SERUM LEVELS OF PSA MEASURED USING THE ROXANNE [employer] ACCESS HYBRITECH IMMUNOASSAY SHOULD NOT BE INTERPRETED ABSOLUTE EVIDENCE OF THE PRESENCE OR ABSENCE OF DISEASE. THE PSA VALUE SHOULD BE USED IN CONJUNCTION WITH OTHER PERTINENT CLINICAL DIAGNOSTIC PROCEDURES. A PSA value in the range of 0.1 to 0.6 ng/ml is indeterminate if being used as an indicator of recurrent or residual disease. . 102 Classification: Desirable . 103 Classification: Low . 104 CALCULATED LDL APPROXIMATES THE VALUE OF A DIRECT LDL MEASUREMENT. Classification: Near or above optimal . 105 UNABLE TO CALCULATE IND.BILI D.BILI IS <0.1 Procedures Date Code Description Status 01/19/2018 16984 I & D Abscess Simple Completed 12/10/2017 [id number] Colonoscopy Completed 10/26/2017 [id number] Diabetic Retinal Eye Exam Completed 08/28/2017 37770 Electrocardiogram Complete Completed 04/20/2017 [id number] Diabetic Foot Exam Completed 04/20/2017 45688 Electrocardiogram Complete Completed 04/21/2016 56452 Electrocardiogram Complete Completed 12/11/2015 56304 Excise Malig Lesion .6-1CM Trunk/Arm/Leg Completed 10/17/2015 37913 Shave Skin Lesion .6-1CM Trunk/Arm/Leg Completed 11/13/2014 92644 Electrocardiogram Complete Completed 10/19/2013 36286 X-Ray Chest Two Views Completed 10/19/2013 03599 Electrocardiogram Complete Completed 11/15/2012 47508 Electrocardiogram Complete Completed 11/15/2012 87910 X-Ray Chest Two Views Completed 11/15/2012 04844 Destruction Premalignant Skin Lesions Completed 09/01/2012 19793 X-Ray Chest Two Views Completed 11/10/2011 91342 Electrocardiogram Complete Completed 11/10/2011 53606 Remove Impact Cerumen Requiring Instrument, Unilateral Completed 12/13/2010 06703 Visual Acuity Screening Test Completed 03/27/2010 30104 Electrocardiogram Complete Completed 01/01/2010 0 Payment Completed 09/27/2004 50402 Electrocardiogram Complete Completed 04/22/2004 03175 Remove Impact Cerumen Requiring Instrument, Unilateral Completed Encounters Type Date Location Provider Dx Diagnosis Office Visit 04/14/2018 Main Office Tiago Tam, R60.1 Generalized edema 10:15a M.D. N04.9 Nephrotic syndrome with unspecified morphologic [...] diabetes M.D. 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 insulin Office Visit 08/28/2017 [...] for immunization Z71.89 Other specified counseling Z79.4 [facility] (current) use of insulin Office Visit 04/20/2017 [...] [facility] (current) use of insulin Z51.81 Encounter for [...] for oth proc for purpose [facility] Office Visit 11/13/2014 3:30p Main Office Rhianna Tam.42 Diabetes W/ Renal Cha Ordoñez Manifestations Type II Uncontrolled 272.0 Hypercholesterolemia Pure 596.54 Neurogenic Bladder NOS V70.0 Examination General Medical Routine [facility] Office Visit 06/16/2014 4:00p Main Office Rhianna Tam.42 Diabetes W/ Ava Ordoñez M.D. Manifestations Type II Uncontrolled 272.0 Hypercholesterolemia Pure V76.44 Screening For Malig Rodolfo Prostate V76.43 Screening Malignant Neoplasm Skin 596.54 Neurogenic Bladder NOS 250.02 Diabetes Mellitus W/O Compl Type II Or Unspec Type Uncontrol Office Visit 02/14/2014 9:45a Main Office Anel 250.42 Diabetes W/ Ava Ordoñez M.D. Manifestations Type II Uncontrolled 272.0 Hypercholesterolemia Pure [...] Main Office Anel 272.0 Hypercholesterolemia Pure 4:30p Cah Ordoñez 250.02 Diabetes Mellitus W/O Compl Type [...] Chemistry Other Office Visit 04/24/2008 Main Office Anel 272.0 Hypercholesterolemia Pure 2:00p Cha Ordoñez 300.02 Anxiety Disorder Generalized 530.81 Esophageal Reflux 278.02 Overweight V76.44 Screening For Malig Rodolfo Prostate V65.49 Counseling Other Spec Office Visit 03/16/2007 4:00p Main Office Tiago Tam, 374.9 Eyelid Disorder M.D. Unspec 278.00 Obesity Unspec Office Visit 05/27/2006 Main Office Anel 272.0 Hypercholesterolemia Pure 9:45a Tiago, M.D. 300.02 Anxiety Disorder Generalized 278.02 Overweight V76.51 [...] Office Visit 04/19/2003 4:30p Main Office Tiago Tam 300.02 Anxiety Disorder Cha Generalized V65.5 Person W/ Feared Complaint In Whom No Diagnosis Was Made 783.21 Loss Of Weight Office Visit 03/28/2003 1:15p Main Office Tiago Tam M.D. 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
[2018-05-03 21:18] LABS: Urine Appearance Cloudy; Urine Bacteria Absent (Absent); Urine Bilirubin Negative (Negative); Urine Blood 2+ (Negative); Urine Color Yellow; Urine Glucose 3+(>=500 mg/dL) (Negative); Urine Ketones Negative (Negative); Urine Nitrite Negative (Negative); Urine Protein 3+(>=500 mg/dL) (Negative); Urine Red Blood Cell Trace(0-2/hpf) (Absent); Urine Specific Gravity 1.021 (1.010-1.030); Urine Squamous Epithelial Cell Present (Absent); Urine Urobilinogen Negative (Negative); Urine White Blood Cell 1+(6-10/hpf) (Absent)
--- NOTE | 2018-05-04 01:10 | ED ---
Complex/Multi-Sys Presentation - HPI Summary HPI Summary: This patient is a 72 year old M presenting to ED with a chief complaint of gagging since earlier today. He was in bed taking a nap and initially he felt okay, then he woke up and felt like he was gagging for a second which felt like fluid in his chest. After he started walking around, he felt fine. The patient took klonopin prior to coming to the ED. The patient rates the pain 0/10 in severity. Symptoms aggravated by nothing. Symptoms alleviated by nothing. Patient reports constipation. The patient also has kidney disease and sees Dr. Aparicio for it. He also reports that he is always swelling in his lower extremities but it has not gotten worse. He gained about 37-40 lbs and then lost about 6 lbs. - History Of Current Complaint Chief Complaint: EDGeneral Time Seen by Provider: 05/04/18 00:59 Hx Obtained From: Patient Onset/Duration: Sudden Onset, Resolved Timing: Intermittent, Lasting:, Seconds Severity Currently: None Aggravating Factor(s): nothing Alleviating Factor(s): nothing Associated Signs And Symptoms: Positive: Other - constipation, "gagging" (felt like fluid in his chest) - Allergies/Home Medications Allergies/Adverse Reactions: Allergies Allergy/AdvReac Type Severity Reaction Status Date / Time No Known Allergies Allergy Verified 05/03/18 18:54 PMH/Surg Hx/FS Hx/Imm Hx Endocrine/Hematology History: Reports: Hx Diabetes - METFORMIN Cardiovascular History: Reports: Hx Hypercholesterolemia Sensory History: Reports: Hx Contacts or Glasses - READING Denies: Hx Cataracts, Hx Hearing Aid Opthamlomology History: Reports: Hx Contacts or Glasses - READING Denies: Hx Cataracts Psychiatric History: Reports: Hx Anxiety - NO TREATED - Surgical History Surgery Procedure, Year, and Place: WISDOM TEETH REMOVAL 2010. BASAL SKIN CA REMOVAL 10 YRS AGO Hx Anesthesia Reactions: No Infectious Disease History: No Infectious Disease History: Denies: Traveled Outside the [place] in Last 30 Days - Family History Known Family History: Negative: Cardiac Disease, Hypertension, Diabetes - Social History Alcohol Use: None Substance Use Type: Reports: None Smoking Status (MU): Never Smoked Tobacco Review of Systems Positive: Other - "gagging" that felt like fluid in his chest Positive: Other - constipation Positive: Edema - swelling in lower extremities All Other Systems Reviewed And Are Negative: Yes Physical Exam - Summary Physical Exam Summary: Appearance: Well-appearing, Well-nourished, lying in bed comfortably Skin: Warm, dry, no obvious rash Eyes: sclera anicteric, no conjunctival pallor ENT: mucous membranes moist, pharynx appears normal Neck: Supple, nontender Respiratory: Clear to auscultation, no signs of respiratory distress Cardiovascular: Normal S1, S2. No murmurs. Normal distal pulses in tibial and radial bilaterally. Abdomen: Soft, nontender, normal active bowel sounds present Musculoskeletal: Strength/ROM Intact. Moderate peripheral pedal edema consistent with nephrotic syndrome Neurological: A&Ox3, awake and alert, mentation is normal, speech is fluent and appropriate Psychiatric: affect is normal, does not appear anxious or depressed Triage Information Reviewed: Yes Vital Signs On Initial Exam: Initial Vitals Temp Pulse Resp BP Pulse Ox 97.7 F 84 16 109/73 95 05/03/18 18:45 05/03/18 18:45 05/03/18 18:45 05/03/18 18:45 05/03/18 18:45 Vital Signs Reviewed: Yes Diagnostics - Vital Signs Vital Signs Temp Pulse Resp BP Pulse Ox 05/03/18 23:22 97.6 F 86 18 135/89 95 05/03/18 21:04 97.4 F 75 20 126/79 99 05/03/18 18:45 97.7 F 84 16 109/73 95 - Laboratory Lab Results: Lab Results 05/03/18 Range/Units 21:01 Urine Color Yellow Urine Appearance Cloudy Urine pH 5.0 (5-9) Ur Specific [place] 1.021 (1.010-1.030) Urine Protein 3+(>=500 mg/dl) A (Negative) Urine Ketones Negative (Negative) Urine Blood 2+ A (Negative) Urine Nitrate Negative (Negative) Urine Bilirubin Negative (Negative) Urine Urobilinogen Negative (Negative) Ur Leukocyte Esterase Negative (Negative) Urine WBC (Auto) 1+(6-10/hpf) A (Absent) Urine RBC (Auto) Trace(0-2/hpf) (Absent) Ur Squamous Epith Cells Present A (Absent) Urine Bacteria Absent (Absent) Hyaline Casts Present A (Absent) Urine Glucose 3+(>=500 mg/dl) A (Negative) Result Diagrams: 05/04/18 01:12 05/04/18 01:12 Lab Statement: Any lab studies that have been ordered have been reviewed, and results considered in the medical decision making process. - Radiology CXR Radiology Interpretation Completed By: ED Physician Summary of Radiographic Findings: No acute processes. Pending radiologist official interpretation. - EKG 2043 Cardiac Rate: NL - 78 BPM EKG Rhythm: Sinus Rhythm Summary of EKG Findings: P waves, QRS complex, and T waves are within normal limits, T waves and intervals are normal, no ischemic changes. This is a normal EKG. Complex Multi-Symp Course/Dx Assessment/Plan: This patient is a 72 year old M presenting to ED with a chief complaint of gagging since earlier today. He was in bed taking a nap and initially he felt okay, then he woke up and felt like he was gagging for a second which felt like fluid in his chest. CXR reveals no acute processes. EKG is a normal EKG. This patient will be discharged. Patient understands and is agreeable with this plan. - Diagnoses Provider Diagnoses: Leg edema Discharge - Sign-Out/Discharge Documenting (check all that apply): Patient Departure - discharge Patient Received Moderate/Deep Sedation with Procedure: No - Discharge Plan Condition: Good Disposition: HOME Patient Education Materials: Leg Edema (ED) Referrals: Tiago Tam MD [Primary Care Provider] - If Needed Additional Instructions: The spell you had tonight seems to have been something benign. Continue your medications as your doctor has ordered. Your lab work does not show any significant changes from your baseline. - Billing Disposition and Condition Condition: GOOD Disposition: Home - Attestation Statements Document Initiated by Hanna: Yes Documenting Scribe: Devendra Campos Provider For Whom Hanna is Documenting (Include Credential): Matt Marti MD Scribe Attestation: Devendra Bazzi, scribed for Matt Marti MD on 05/06/18 at 0216. Scribe Documentation Reviewed: Yes Provider Attestation: The documentation as recorded by the Devendra reyez accurately reflects the service I personally performed and the decisions made by me, Mtat Marti MD Status of Scribe Document: Viewed
[2018-05-04 01:34] LABS: ABS Basophils 0 10^3/ul (0-0.2); ABS Eosinophils 0.4 10^3/ul (0-0.6); ABS Lymphocytes 1.4 10^3/ul (1.0-4.8); ABS Monocytes 0.6 10^3/ul (0-0.8); ABS Neutrophils 4.6 10^3/ul (1.5-7.7); ABS Nucleated RBC 0 10^3/ul; Eosinophil % 5.1 %; Hematocrit 43 % (42-52); Hemoglobin 14.4 g/dl (14.0-18.0); Lymphocyte % 20.3 %; Mean Corpuscular HGB Conc 33 g/dl (31-36); Mean Corpuscular Hemoglobin 27 pg (27-31); Mean Corpuscular Volume 81 fL (80-94); Mean Platelet Volume 8.2 fL (7.4-10.4); Nucleated Red Blood Cells % 0; Platelet Count 402 10^3/ul (150-450); Red Blood Count 5.38 10^6/ul (4.00-5.40); Red Cell Distribution Width 17 % (10.5-15)
[2018-05-04 01:54] LABS: BUN/Creatinine Ratio 16.8 (8-20); Calcium 7.7 mg/dL (8.6-10.3); EGFR African American 25.2 (>60); EGFR Non-African American 20.9 (>60); Potassium 4.1 mmol/L (3.5-5.0)
[2018-05-04 03:07] VITALS: BP 130/68
== END 2018-05-04 03:08 | disposition home or self-care (01) ==
LOC: ED 18:21
DX: R60.9 Edema, unspecified (principal); K59.00 Constipation, unspecified
CPT/HCPCS: 36415; 71046; 80048; 81003; 81015; 85025; 87086; 93005; 99282

== ENCOUNTER 2018-05-12 11:55 | Emergency (ER) | payer MEDICARE, BC ==
--- NOTE | 2018-05-12 12:28 | ED ---
Complaint/Male - History of Current Complaint Chief Complaint: EDUrogenitalProblems - Allergies/Home Medications Allergies/Adverse Reactions: Allergies Allergy/AdvReac Type Severity Reaction Status Date / Time No Known Allergies Allergy Verified 05/12/18 12:14 PMH/Surg Hx/FS Hx/Imm Hx Endocrine/Hematology History: Reports: Hx Diabetes - METFORMIN Cardiovascular History: Reports: Hx Hypercholesterolemia Sensory History: Reports: Hx Contacts or Glasses - READING Denies: Hx Cataracts, Hx Hearing Aid Opthamlomology History: Reports: Hx Contacts or Glasses - READING Denies: Hx Cataracts Psychiatric History: Reports: Hx Anxiety - NO TREATED - Surgical History Surgery Procedure, Year, and Place: WISDOM TEETH REMOVAL 2009. BASAL SKIN CA REMOVAL 10 YRS AGO Hx Anesthesia Reactions: No Infectious Disease History: No Infectious Disease History: Denies: Traveled Outside the [place] in Last 30 Days - Family History Known Family History: Negative: Cardiac Disease, Hypertension, Diabetes - Social History Alcohol Use: None Substance Use Type: Reports: None Smoking Status (MU): Never Smoked Tobacco Physical Exam Vital Signs On Initial Exam: Initial Vitals Temp Pulse Resp BP Pulse Ox 97.2 F 85 19 99/67 96 05/12/18 12:07 05/12/18 12:07 05/12/18 12:07 05/12/18 12:07 05/12/18 12:07 Diagnostics - Vital Signs Vital Signs Temp Pulse Resp BP Pulse Ox 05/12/18 12:07 97.2 F 85 19 99/67 96 - Laboratory Lab Statement: Any lab studies that have been ordered have been reviewed, and results considered in the medical decision making process.
--- OUTSIDE RECORDS SUMMARY | 2018-05-12 13:08 | XMS REPORT | Continuity of Care Document ---
:1945 External Reference #:[id number] Author Name Tiago Tam M.D. Address [address] [facility] [address] [place] [address] Care Team Providers Name Role Phone HCP given Primary Care Physician Unavailable Payers Type Date Identification Numbers Payment Provider Subscriber Policy Number: [id number] [facility] [place] [facility] [facility] Lefty Harden PayID: [id number] [address] [place] [address] Policy Number: [id number] [facility] Lefty Harden PayID: [id number] [address] [place] [address] Advance Directives Description No Information Available Problems [...] Disease : (age 60 Father due to [place] smoker Years) Father Hypertension ? Father Hypercholesterolemia [...] Form Strength Qnty SIG Indications Ordering Provider Humulin N Active Supn 100Unit/ML 15ml inject 6 units E11.65 Silcoff, Kwikpen 019 subcutaneously Tiago, in the morning M.D. and 2 units at suppertime (to replace Lantus) E11.21 Sleeping Pill 05/10/2018 Active hs Unknown Candesartan 05/07/2018 Active Tablets 16mg 2 po daily Unknown Cilexetil Ondansetron HCL 05/01/2018 - Hx Tablets 4mg 10t 1 by mouth every R11 Sopchak, 05/31/2018 abs 4 hours as needed .0 Yung, for nausea D.O. Furosemide 04/19/2018 Active Tablets 40mg 2 by mouth twice R60 Hesson, daily .1 MD Eusebio Vitamin B12 04/13/2018 Active Tablets ER 1000m Unknown cg Freestyle 09/28/2017 Active Misc 100 use 1-2x/day for E11 Silcoff, Lancets uni blood sugar .65 arthur Ordoñez monitoring M.D. Freestyle Lite 09/18/2017 Active Strips 100 use 2x/day as E11 Silcoff, Test uni directed for .65 arthur Ordoñez monitoring blood M.D. sugar Pen [place] 08/28/2017 Active Misc 31G X 100 use as directed E11 Silcoff, 8 mm uni (once/day) for .65 arthur Ordoñez insulin M.D. administration Flonase Allergy 05/24/2016 Active Suspension 50mcg 47. 2 sprays twice a J31 Sopchak, Relief /Act 400 day until better. .0 Yung, ml D.O. Clonazepam 12/25/2015 Active Tablets 0.5mg 45t 1/2 by mouth F41 Silcoff , abs 3x/day as needed .9 дмитрий Ordoñez anxiety M.D. Tamsulosin HCL 02/07/2015 Active Capsules 0.4mg daily Osiel Fonseca MD Freestyle 28G 09/20/2014 Active 100 Use as Directed Silcoff, Lancets uni 1-2 Times A Day arthur Ordoñez For Monitoring M.D. Blood Sugar Glucometer 10/19/2013 Active 1un use as directed E11 Silli, its .65 Cha Ordoñez Atorvastatin 06/02/2012 Active Tablets 40mg 90t 1 by mouth every Silcoff, Calcium abs day for high Tiago cholesterol (to M.D. replace crestor) Lisinopril 05/05/2018 - Hx Tablets 20mg 1 pill every E11 Unknown 05/10/2018 morning for .21 kidney protection Lantus Solostar 04/20/2018 - Hx Solution 100Un inject 10units E11 Silcoff, 05/11/2018 Pen-Inject it/ML once daily, at .65 Tiago, same time every M.D. day; for blood sugar control E11.21 Captopril 04/19/2018 - Hx Tablets 12.5mg 1 tab three E11.21 Hesson, 05/05/2018 times a day MD Eusebio for kidney protection Lantus 04/19/2018 - Hx Solution 100Unit/ML inject 15units E11.65 Silcoff, Solostar 04/20/2018 Pen-Inject once daily, at Tiago, same time M.DMeaghan every day; for blood sugar control E11.21 Furosemide 04/14/2018 - Hx Tablets 40mg 180tabs 1 tablet R60.1 Silcoff, 04/19/2018 2x/day Cha Ordoñez Captopril 04/13/2018 - Hx Tablets 12.5mg 1/2 tab tid E11.21 Unknown 04/19/2018 Furosemide 04/09/2018 - Hx Tablets 20mg 2 by mouth R60.1 Silcoff, 04/14/2018 every Cha Ordoñez morning for edema Furosemide 04/04/2018 - Hx Tablets 20mg 20tabs 1 tablet by R60.1 Unknown 04/09/2018 mouth daily Ondansetron HCL 03/29/2018 - Hx Tablets 4mg 10tabs 1 by mouth R11.0 Silcoff, 04/08/2018 every 4 Cha Ordoñez hours as needed for nausea Farxiga 03/05/2018 - Hx Tablets 5mg 90tabs 1 tab by E11.65 Silcoff, 04/06/2018 mouth every Cha Ordoñez day for blood sugar control E11.21 E11.65 Tradjenta 02/24/2018 - Hx Tablets 5mg 90tabs 1 by mouth E11.65 Silcoff, 03/05/2018 every day for Cha Ordoñez blood sugar control E11.21 E11.65 Amoxicillin/Clavulanate 01/09/2018 Hx Tablets 875-125mg 20tabs 1 tab L03.313 Silcoff, Potassium - by Tiago, 01/19/2018 mouth M.DMeaghan twice a day x10 days Polatus Napierostar 12/26/2017 Hx Solution 100Unit/ML 15ml inject E11.65 Silcoff, - Pen-Inje 30unit Tiago, 04/19/2018 ct s once M.D. daily, at same time every day; for blood sugar contro l Polatus Napierostar 12/09/2017 Hx Solution 100Unit/ML 15ml inject E11.65 Silcoff, - Pen-Inje 26unit Tiago, 12/26/2017 ct s once M.D. daily, at same time every day; for blood sugar contro l Polatus Napierostar 11/24/2017 Hx Solution 100Unit/ML inject E11.65 Silcoff, - Pen-Inje 20unit Tiago, 12/09/2017 ct s once M.D. daily, at same time every day; for blood sugar contro l Polatus Napierostar 09/11/2017 Hx Solution 100Unit/ML 15ml inject E11.65 Silcoff, - Pen-Inje 16unit Tiago, 11/24/2017 ct s once M.D. daily, at same time every day; for blood sugar contro l Polatus Quyenostar 09/09/2017 Hx Solution 100Unit/ML inject E11.65 Silcoff, - Pen-Inje 15unit Tiago, 09/11/2017 ct s once M.D. daily, at same time every day; for blood sugar contro l Lantus Quyenostar 08/28/2017 Hx Solution 100Unit/ML 15ml inject E11.65 [...] needed for nasal draina ge Saline Nasal [place] 05/24/2016 Hx Solution 0.65% 132ml Use 5 [...] ed for blood sugar contro l Pen [place] 10/16/2015 Hx Misc 31G X 5 mm 25units use as E11.65 Silcoff , - direct Tiago, 08/28/2017 ed for M.D. admini strati on of Bydure on Neomycin/Polymyxin/[place] 09/21/2015 Hx Suspensi 3.5-19365- 10ml 4-5 H60.8x1 Rigoberto cortisone (Otic) - on 1 drops A. 10/01/2015 in [facility], right M.D. ear qid x 7days Glipizide ER 05/21/2015 Hx Tablets 5mg 180tabs take 1 E11.65 Silcoff, - ER 24HR tablet Tiago, 04/13/2018 by Cha mouth 2x/day to lower blood sugar Metformin HCL ER 05/20/2015 Hx Tablets 500mg 270tabs 2 by E11.65 Silcoff, - ER 24HR mouth Tiago, 02/24/2018 every M.DMeaghan morlula g and 1 every erickson g; for blood sugar contro l E11.21 [...] Silcoff, 11/10/2011 by mouth Tiago every evening M.Isaak for high cholesterol Omeprazole 04/24/2008 - Hx Capsules 20mg 30caps 1 po qd for 530.81 Silcoff, 05/24/2008 acid reflux Cha Ordoñez Aspirin Ec 04/24/2008 - Hx Tablets 81mg 1 po qd for Silcoff, 05/10/2018 heart disease carey Ordoñez M.D. Lamictal 09/30/2005 - Hx Tablets 25mg 2 PO qd Unknown 05/27/2006 Zocor 05/05/2005 - Hx Tablets 40mg 90tabs 1 po qd for 272.0 Silcoff, 09/13/2010 high becca Ordoñez M.D. Paxil 09/27/2004 - Hx Tablets 40mg [...] Capsules 40mg 1 po bid Unknown 04/19/2003 [place] - Hx Capsules 300mg 1 po tid Unknown Carbonate 05/27/2006 Lipitor - Hx Tablets 20mg 90tabs 1 po qd with Silcoff, 05/05/2005 supper for high Cha Ordoñez cholesterol Immunizations CPT Code Status Date Vaccine Lot # [id number] Given 01/20/2018 Influenza Vaccine, Inactivated, Subunit, [id number] Adjuvanted, For [facility] [address] Given 04/20/2017 Influenza Virus Vaccine, Quadrivalent, Split, [id number] Preservative Free 12765 Given 04/21/2016 Influenza Virus Vaccine, Quadrivalent, Split, [id number] Preservative Free 44824 Given 11/23/2015 Adacel or Boostrix, TDaP [id number] 81208 Given 10/16/2015 Prevnar 13 [id number] 64916 Given 02/14/2015 Influenza Vaccine Split Virus Preservative Free Im [id number] Use 04553 Given 02/14/2014 Flu, Split Virus 3Yrs [id number] 40380 Given 03/18/2013 Flu, Split Virus 3Yrs [id number] 89969 Given 11/10/2011 Pneumococcal Immunization [id number] Refused 08/28/2017 Shingrix Zoster (Shingles) Vaccine (HZV) Recomb,Subnit,Adjuvanted [id number] Refused 10/16/2015 Adacel or Boostrix, TDaP 52385 Refused 11/13/2014 Prevnar 13 [id number] Refused 04/24/2008 Zostavax [id number] Refused 04/24/2008 Adacel or Boostrix, TDaP Vital Signs Date Vital Result Comment 05/11/2018 5:20pm BP Systolic 112 mmHg BP Diastolic 82 mmHg Respiratory Rate 84 /min reg O2 % BldC Oximetry 93 % at rest and w/ ambulation Weight 254.00 lb 04/20/2018 10:12am BP Systolic 148 mmHg BP [...] Test Result H/L Range Note Laboratory test 05/11/2018 In House Hemoglobin A1c 7.0 finding Comp Metabolic 05/10/2018 [facility] Sodium 141 mmol/L N 135-145 Panel [phone] Potassium 4.5 mmol/L N 3.5-5.0 Co2 Carbon Dioxide 25 mmol/L N 22-32 Glucose 131 mg/dL High 70-100 Blood Urea Nitrogen 54 mg/dL High 6-24 Creatinine 3.11 mg/dL High 0.67-1.17 One Over Creatinine 0.32 BUN/Creatinine Ratio 17.4 N 8-20 Calcium 7.7 mg/dL Low 8.6-10.3 Total Protein 3.8 g/dL Low 6.4-8.9 Albumin 1.7 g/dL Low 3.2-5.2 Globulin 2.1 g/dL N 2-4 Albumin/Globulin Ratio 0.8 Low 1-3 Total Bilirubin 0.30 mg/dL N 0.2-1.0 Alkaline Phosphatase 88 U/L N 34-104 Alt 25 U/L N 7-52 Ast 33 U/L N 13-39 Egfr Non- 19.8 >60 Egfr 23.9 >60 1 Chloride 112 mmol/L High 101-111 Anion Gap 4 mmol/L N 2-11 Laboratory test finding 05/10/2018 [facility] Phosphorus 4.8 mg/dL N 2.5-5.0 [phone] Magnesium 2.5 mg/dL N 1.9-2.7 Comp Metabolic Panel 05/05/2018 [facility] Sodium 141 mmol/L N 135- 145 [phone] Potassium 4.6 mmol/L N 3.5-5.0 Chloride 110 mmol/L N 101-111 Co2 Carbon Dioxide 26 mmol/L N 22-32 Anion Gap 5 mmol/L N 2-11 Glucose 93 mg/dL N 70-100 Blood Urea Nitrogen 49 mg/dL High 6-24 Creatinine 2.94 mg/dL High 0.67-1.17 One Over Creatinine 0.34 mg/dL Low 0.67-1.17 BUN/Creatinine Ratio 16.7 N 8-20 Calcium 7.3 mg/dL Low 8.6-10.3 Total Protein 3.7 g/dL Low 6.4-8.9 Albumin 1.6 g/dL Low 3.2-5.2 Globulin 2.1 g/dL N 2-4 Albumin/Globulin Ratio 0.8 Low 1-3 Total Bilirubin 0.20 mg/dL N 0.2-1.0 Alkaline Phosphatase 90 U/L N 34-104 Alt 25 U/L N 7-52 Ast 35 U/L N 13-39 Egfr Non- 21.1 >60 Egfr 25.5 >60 2 Lipid Profile (Trig/Chol/HDL) 05/05/2018 [facility] Triglycerides 130 mg/dL 3 [phone] Cholesterol 341 mg/dL 4 HDL Cholesterol 57.1 mg/dL 5 LDL Cholesterol 258 mg/dL 6 Liver Function 05/05/2018 [facility] Direct 0.00 mg/dL Low 0.03-0.18 Panel [phone] Bilirubin Laboratory test 05/05/2018 [facility] Uric Acid 6.3 mg/dL N 4.4-7.6 finding [phone] Phosphorus 4.3 mg/dL N 2.5-5.0 Magnesium 2.4 mg/dL N 1.9-2.7 CBC Auto Diff 05/05/2018 [facility] White Blood Count 6.7 10^3/uL N 3.5-10.8 [phone] Red Blood Count 5.22 10^6/uL N 4.00-5.40 Hemoglobin 13.9 g/dL Low 14.0-18.0 Hematocrit 43 % N 42-52 Mean Corpuscular Volume 82 fL N 80-94 Mean Corpuscular Hemoglobin 27 pg N 27-31 Mean Corpuscular HGB Conc 33 g/dL N 31-36 Red Cell Distribution Width 17 % High 10.5-15 Platelet Count 370 10^3/uL N 150-450 Mean Platelet Volume 8.5 fL N 7.4-10.4 Abs Neutrophils 4.2 10^3/uL N 1.5-7.7 Abs Lymphocytes 1.5 10^3/uL N 1.0-4.8 Abs Monocytes 0.6 10^3/uL N 0-0.8 Abs Eosinophils 0.4 10^3/uL N 0-0.6 Abs Basophils 0 10^3/uL N 0-0.2 Abs Nucleated RBC 0 10^3/uL Granulocyte % 62.6 % Lymphocyte % 21.6 % Monocyte % 8.8 % Eosinophil % 6.4 % Basophil % 0.6 % Nucleated Red Blood Cells % 0.1 Basic Metabolic Panel 05/04/2018 [facility] Sodium 138 mmol/L N 135- 145 [phone] Potassium 4.1 mmol/L N 3.5-5.0 Chloride 108 mmol/L N 101-111 Co2 Carbon Dioxide 23 mmol/L N 22-32 Anion Gap 7 mmol/L N 2-11 Glucose 168 mg/dL High 70-100 Blood Urea Nitrogen 50 mg/dL High 6-24 Creatinine 2.97 mg/dL High 0.67-1.17 BUN/Creatinine Ratio 16.8 N 8-20 Calcium 7.7 mg/dL Low 8.6-10.3 Egfr Non- 20.9 >60 Egfr 25.2 >60 7 Urine Culture And 05/03/2018 [facility] Urine Culture SEE RESULT 8 Sensitivities [phone] BELOW CBC Auto Diff 05/03/2018 [facility] White Blood 7.0 10^3/uL N 3.5- 10. [phone] Count 8 Red Blood Count 5.38 10^6/uL N 4.00-5.40 Hemoglobin 14.4 g/dL N 14.0-18.0 Hematocrit 43 % N 42-52 Mean Corpuscular Volume 81 fL N 80-94 Mean Corpuscular Hemoglobin 27 pg N 27-31 Mean Corpuscular HGB Conc 33 g/dL N 31-36 Red Cell Distribution Width 17 % High 10.5-15 Platelet Count 402 10^3/uL N 150-450 Mean Platelet Volume 8.2 fL N 7.4-10.4 Abs Neutrophils 4.6 10^3/uL N 1.5-7.7 Abs Lymphocytes 1.4 10^3/uL N 1.0-4.8 Abs Monocytes 0.6 10^3/uL N 0-0.8 Abs Eosinophils 0.4 10^3/uL N 0-0.6 Abs Basophils 0 10^3/uL N 0-0.2 Abs Nucleated RBC 0 10^3/uL Granulocyte % 65.5 % Lymphocyte % 20.3 % Monocyte % 8.4 % Eosinophil % 5.1 % Basophil % 0.7 % Nucleated Red Blood Cells % 0 Urinalysis Profile 05/03/2018 [facility] Urine Color Yellow [phone] Urine Appearance Cloudy Urine Specific [place] 1.021 N 1.010-1.030 Urine pH 5.0 N 5-9 Urine Urobilinogen Negative Negative Urine Ketones Negative Negative Urine Protein 3+(>=500 mg/dL) Abnormal Negative Urine Leukocytes Negative Negative Urine Blood 2+ Abnormal Negative Urine Nitrite Negative Negative Urine Bilirubin Negative Negative Urine Glucose 3+(>=500 mg/dL) Abnormal Negative Urine White Blood Cell 1+(6-10/hpf) Abnormal Absent Urine Red Blood Cell Trace(0-2/hpf) Absent Urine Bacteria Absent Absent Urine Squamous Epithelial Cell Present Abnormal Absent Urine Hyaline Casts Present Abnormal Absent Laboratory test 04/20/2018 In House Glucose 87 9 finding CBC Auto Diff 04/16/2018 [facility] White Blood 10.1 N 3.5-10.8 [phone] Count 10^3/uL Red Blood Count 5.39 10^6/uL N 4.00-5.40 [...] Cells % 0 Comp Metabolic Panel 04/16/2018 [facility] Sodium 141 mmol/L N 135- 145 [phone] Potassium 4.6 mmol/L N 3.5-5.0 Chloride 109 [...] Egfr Non- 24.4 >60 Egfr 29.6 >60 10 Laboratory test finding 04/16/2018 [facility] Phosphorus 4.4 mg/dL N 2.5-5.0 [phone] Magnesium 2.8 mg/dL High 1.9-2.7 Laboratory test 04/11/2018 [facility] Lactic Acid 0.6 mmol/L N 0.5- 2.0 11 finding [phone] CKMB 04/11/2018 [facility] CKMB ng/mL 44.5 ng/mL High 0.6-6.3 [phone] Laboratory test 04/11/2018 [facility] C Reactive 3.23 mg/L N <8.01 finding [phone] Protein Troponin-I (TnI) 0.03 ng/mL <0.04 12 Comp Metabolic Panel 04/11/2018 [facility] Sodium 138 mmol/L N 135- 145 [phone] Potassium 4.2 mmol/L N 3.5-5.0 Chloride 108 [...] Egfr Non- 23.8 >60 Egfr 28.8 >60 13 Glucose 44 mg/dL Low 70-100 14 Laboratory test 04/11/2018 [facility] Partial 36.1 seconds N 26.0- 36.3 finding [phone] Thrombo Time PTT B-Type Natriuretic Peptide BNP 20 pg/mL <=100 CBC Auto Diff 04/11/2018 [facility] White Blood Count 8.5 10^3/uL N 3.5-10.8 [phone] Red Blood Count 5.49 10^6/uL High 4.00-5.40 [...] Blood Cells % 0 Urine Culture And 04/11/2018 [facility] Urine Culture SEE RESULT 15 Sensitivities [phone] BELOW Urinalysis Profile 04/11/2018 [facility] Urine Color Yellow [phone] Urine Appearance Cloudy Urine Specific [place] 1.023 N 1.010-1.030 Urine pH 5.0 N [...] Absent Urine Granular Casts Present Abnormal Absent Laboratory test 04/11/2018 [facility] Point of Care 159 mg/dL High 70 -100 16 finding [phone] Glucose Laboratory test 04/11/2018 [facility] Point of Care 32 mg/dL Low 70- 100 17 finding [phone] Glucose Total Protein 04/09/2018 [facility] Urine TP 2994 mg/dL 24HR Urine [phone] Concentration Urine Total Protein/24HR 28834 mg/24Hr High 0-165 Urine Collection Time 24 hr Urine Total Volume 925 mL Basic Metabolic Panel 04/07/2018 [facility] Sodium 143 mmol/L N 135- 145 [phone] Potassium 4.1 mmol/L N 3.5-5.0 Chloride 110 mmol/L N 101-111 Co2 Carbon Dioxide 27 mmol/L N 22-32 Anion Gap 6 mmol/L N 2-11 Glucose 60 mg/dL Low 70-100 Blood Urea Nitrogen 50 mg/dL High 6-24 Creatinine 2.55 mg/dL High 0.67-1.17 BUN/Creatinine Ratio 19.6 N 8-20 Calcium 7.4 mg/dL Low 8.6-10.3 Egfr Non- 24.9 >60 Egfr 30.1 >60 18 CBC Auto Diff 04/03/2018 [facility] White Blood Count 7.4 10^3/uL N 3.5-10.8 [phone] Red Blood Count 5.54 10^6/uL High 4.00-5.40 [...] Blood Cells % 0 Urinalysis Profile 04/03/2018 [facility] Urine Color Yellow [phone] Urine Appearance Cloudy Urine Specific [place] 1.025 N 1.010-1.030 Urine pH 5.0 N [...] Present Abnormal Absent Comp Metabolic Panel 04/03/2018 [facility] Sodium 138 mmol/L N 135- 145 [phone] Potassium 3.6 mmol/L N 3.5-5.0 Chloride 106 [...] Egfr Non- 23.6 >60 Egfr 28.5 >60 19 Laboratory test 04/03/2018 [facility] TSH (Thyroid 4.79 N 0.34-5.60 finding [phone] Stim Horm) mcIU/mL Urine Culture And 04/03/2018 [facility] Urine Culture SEE RESULT 20 Sensitivities [phone] BELOW Laboratory test 02/24/2018 In House Hemoglobin A1c 7.9 finding Laboratory test 12/10/2017 [facility] Surgical SEE RESULT 21 finding [phone] Pathology BELOW Laboratory test 11/24/2017 In House Hemoglobin A1c 8.0 finding Laboratory test 09/28/2017 [facility] Fructosamine 279 mcmol/L 200 - 285 22 finding [phone] Vitamin B12 752 pg/mL N 180-915 23 Methylmalonic Acid Mma 0.13 nmol/mL <=0.40 24 Laboratory test 08/28/2017 In House Hemoglobin A1c 8.1 finding Laboratory test 04/20/2017 In House Hemoglobin A1c 8.5 finding Laboratory test 04/20/2017 [facility] PSA Screening 0.815 ng/mL 0- 4.0 25 finding [phone] Laboratory test 04/20/2017 [facility] Vitamin B12 262 pg/mL N 180- 914 26 finding [phone] Laboratory test 04/14/2017 [facility] Alt (SGPT) 19 U/L N 7-52 finding [phone] Lipid Profile 04/14/2017 [facility] Triglycerides 97 mg/dL 27 (Trig/Chol/HDL) [phone] Cholesterol 122 mg/dL 28 HDL Cholesterol 30.5 mg/dL 29 LDL Cholesterol 72 mg/dL 30 Urine Microalbumin 04/14/2017 [facility] Ur Microalbumin 60.3 mg/L Random [phone] (mg/L) Urine Creatinine 125.15 mg/dL Urine Microalbumin/Creatinine 48.1 ug/mg High <31 Laboratory test 10/14/2016 In House Hemoglobin A1c 7.2 finding Laboratory test 04/21/2016 In House Hemoglobin A1c 7.6 finding Urine Microalbumin 04/21/2016 [facility] Urine Creatinine 197.10 mg/dL N 31 Random [phone] Ur Microalbumin (mg/L) 35.5 mg/L N Urine Microalbumin/Creatinine 18.0 ug/mg N <31 Basic Metabolic Panel 04/21/2016 [facility] Sodium 138 mmol/L N 133- 145 [phone] Potassium 4.4 mmol/L N 3.5-5.0 Chloride 106 mmol/L N 101-111 Co2 Carbon Dioxide 28 mmol/L N 22-32 Anion Gap 4 mmol/L N 2-11 Glucose 134 mg/dL High 70-100 Blood Urea Nitrogen 18 mg/dL N 6-24 Creatinine 1.09 mg/dL N 0.67-1.17 BUN/Creatinine Ratio 16.5 N 8-20 Calcium 9.3 mg/dL N 8.6-10.3 Egfr Non- 66.7 N >60 Egfr 85.8 N >60 32 Lipid Profile (Trig/Chol/HDL) 04/21/2016 [facility] Triglycerides 68 mg /dL N 33 [phone] Cholesterol 111 mg/dL N 34 HDL Cholesterol 29.5 mg/dL N 35 LDL Cholesterol 68 mg/dL N 36 Laboratory test 04/21/2016 [facility] Alt (SGPT) 18 U/L N 7-52 37 finding [phone] Laboratory test 12/12/2015 [facility] SEE RESULT 38, 39 finding [phone] Pathology BELOW Laboratory test 10/17/2015 [facility] Surgical SEE RESULT 40, 41 finding [phone] Pathology BELOW Laboratory test 10/16/2015 In House Hemoglobin A1c 7.2 finding Laboratory test 05/21/2015 In House Hemoglobin A1c 7.8 finding Urine 05/21/2015 [facility] Ur Microalbumin 41.0 mg/L N Microalbumin [phone] (mg/L) Random Urine Creatinine 148.81 mg/dL N Urine Microalbumin/Creatinine 27.5 ug/mg N <31 Laboratory test 05/21/2015 [facility] PSA Screening 0.803 ng/mL N 0- 4.0 42 finding [phone] Laboratory test 02/14/2015 In House Hemoglobin A1c 8.8 finding Laboratory test 12/12/2014 [facility] Surgical SEE RESULT 43 finding [phone] Pathology BELOW CBC Auto Diff 11/16/2014 [facility] White Blood 6.7 10^3/uL N 4.8- 10.8 [phone] Count Red Blood Count 5.20 10^6/uL N 4.0-5.4 [...] % 0.2 N Liver Function Panel 11/16/2014 [facility] Total Protein 6.6 g/dL N 6.4-8.9 [phone] Albumin 4.3 g/dL N 3.2-5.2 Globulin 2.3 g/dL N 2-4 Albumin/Globulin Ratio 1.9 N 1-3 Total Bilirubin 0.60 mg/dL N 0.2-1.0 Direct Bilirubin 0.10 mg/dL N 0.03-0.18 Indirect Bilirubin 0.5 mg/dL N 0.3-1.0 Alkaline Phosphatase 56 U/L N 34-104 Alt 20 U/L N 7-52 Ast 17 U/L N 13-39 Laboratory test 11/16/2014 [facility] Ferritin 42.3 ng/mL N 24-336 finding [phone] Laboratory test 11/13/2014 [facility] Alt (SGPT) 17 U/L N 7-52 finding [phone] Lipid Profile 11/13/2014 [facility] Triglycerides 116 mg/dL N 44 (Trig/Chol/HDL) [phone] Cholesterol 137 mg/dL N 45 HDL Cholesterol 29.9 mg/dL N 46 LDL Cholesterol 84 mg/dL N 47 Basic Metabolic Panel 11/13/2014 [facility] Sodium 138 mmol/L N 133- 145 [phone] Potassium 4.1 mmol/L N 3.5-5.0 Chloride 106 mmol/L N 101-111 Co2 Carbon Dioxide 27 mmol/L N 22-32 Anion Gap 5 mmol/L N 2-11 Glucose 128 mg/dL High 70-100 Blood Urea Nitrogen 20 mg/dL N 6-24 Creatinine 0.98 mg/dL N 0.67-1.17 BUN/Creatinine Ratio 20.4 High 8-20 Calcium 9.4 mg/dL N 8.6-10.3 Egfr Non- 75.6 N >60 Egfr 97.2 N >60 48 Laboratory test finding 11/13/2014 In House Hemoglobin A1c 8.6 Laboratory test finding 06/16/2014 In House Hemoglobin A1c 8.9 Lipid Profile 02/14/2014 [facility] Triglycerides 100 mg/dL N 49 (Trig/Chol/HDL) [phone] Cholesterol 129 mg/dL N 50 HDL Cholesterol 32.4 mg/dL N 51 LDL Cholesterol 77 mg/dL N 52 Laboratory test 02/14/2014 In House Hemoglobin A1c 7.6 finding Urine Microalbumin 02/14/2014 [facility] Ur Microalbumin 29.0 mg/L N Random [phone] (mg/L) Urine Creatinine 154.78 mg/dL N Urine Microalbumin/Creatinine 18.7 N Less Than 31 Urine Micro Inhouse 12/12/2013 In House Ua WBC - Ua RBC 1-2 Ua Casts - Ua Epi - Ua Other - Ua Glucose - Ua Bilirubin - Ua Ketones - Ua Specific [place] 1.020 Ua Blood mod Ua PH 6.0 Ua Protein tr Ua Urobilinogen - Ua Nitrite - Ua Leukocytes - Urinalysis Profile 11/21/2013 [facility] Urine Color Yellow N [phone] Urine Appearance Clear N Urine Specific [place] 1.017 N 1.010-1.030 Urine pH 5.0 N [...] 199 finding CBC Auto Diff 10/04/2013 [facility] White Blood Count 6.3 N 4.8-10. [phone] 10^3/uL 8 Red Blood Count 5.22 10^6/uL [...] 0 N Comp Metabolic Panel 10/04/2013 [facility] Sodium 140 mmol/L N 133- 145 [phone] Potassium 4.3 mmol/L N 3.7-5.6 Chloride 107 [...] 65.0 N >60 Egfr 83.6 N >60 53 Liver Function 10/04/2013 [facility] Direct Bilirubin 0.10 mg/dL N 0.03-0.18 Panel [phone] Indirect Bilirubin 0.5 mg/dL N 0.3-1.0 Laboratory 10/04/2013 [facility] Carcinoembryonic 7.1 ng/mL High 0.1- 5.0 54 test finding [phone] Antigen Hemoglobin A1c 9.1 % High Less than 6.0 55 Surgical Pathology 09/28/2013 [facility] S RUN DATE: 56 [phone] 10/03/ <SEE NOTE> Laboratory test 03/18/2013 In House Hemoglobin A1c 8.0 finding Occult 11/18/2012 In House Misc neg x3 Blood,Triple Basic Metabolic 11/16/2012 [facility] Sodium 138 mmol/L 133-145 Panel [phone] Potassium 4.3 mmol/L 3.5-5.0 Chloride 105 mmol/L 101-111 Co2 Carbon Dioxide 28.0 mmol/L 22-32 Anion Gap 5.0 mmol/L 2-11 Glucose 141 mg/dL High 70-100 Blood Urea Nitrogen 21 mg/dL 6-24 Creatinine 1.00 mg/dL 0.50-1.40 BUN/Creatinine Ratio 21.0 High 8-20 Calcium 9.3 mg/dL 8.1-9.9 Egfr Non- 74.3 >60 Egfr 95.6 >60 57 Lipid Profile 11/16/2012 [facility] Triglycerides 74 mg/dL 40-200 (Trig/Chol/HDL) [phone] Cholesterol 153 mg/dL Less than 200 HDL Cholesterol 32 mg/dL Low 40-60 58 Cholesterol/HDL Ratio 4.8 Average High 1-4.44 LDL Cholesterol 106.2 High Less Than 100 59 Laboratory test 11/16/2012 [facility] Alt 23 U/L 14-54 60 finding [phone] CBC With Manual 11/16/2012 [facility] White Blood 6.4 10^3/uL 4.8- 10.8 Diff [phone] Count Red Blood Count 5.07 10^6/uL 4.0-5.4 [...] 1+ Darline Cells 2+ Laboratory test 11/16/2012 [facility] PSA Screening 0.9 ng/mL 0-4.0 61 finding [phone] Laboratory test 11/15/2012 In House Hemoglobin A1c 7.6 finding Urine Microalbumin 11/15/2012 [facility] Ur Microalbumin 86.0 mg/L 62 Random [phone] (mg/L) Urine Creatinine 233.4 mg/dL Urine Microalbumin/Creatinine 36.8 High Less Than 31 Laboratory test finding 05/31/2012 In House Hemoglobin A1c 7.3 Laboratory test finding 05/26/2012 [facility] Alt 26 U/L 14-54 [phone] Lipid Profile 05/26/2012 [facility] Triglycerides 113 mg/dL 40-200 (Trig/Chol/HDL) [phone] Cholesterol 153 mg/dL Less than 200 HDL Cholesterol 34 mg/dL Low 40-60 63 Cholesterol/HDL Ratio 4.5 Average High 1-4.44 LDL Cholesterol 96.4 mg/dL Less Than 100 64 Laboratory test finding 11/10/2011 [facility] Alt (SGPT) 18 U/L 17- 63 [phone] Lipid Profile 11/10/2011 [facility] Triglyceride 127 mg/dL 40-200 (Trig/Chol/HDL) [phone] Cholesterol 200 mg/dL Less Than 200 65 High Density Lipoprotein 29 mg/dL Low 40-60 66 Cholesterol/HDL Ratio 6.90 AVERAGE High 1-4.97 Low Density Lipoprotein 146 mg/dL High Less Than 100 67 Urine Microalbumin 11/10/2011 [facility] Microalbumin (MG/L) 45.0 mg/L Random [phone] Urine Creatinine 134.4 mg/dL Tesfaye Alb/Creatinine Ratio 33.5 UG/MG High Less Than 30 68 Laboratory test 11/10/2011 In House Hemoglobin A1c 6.7 finding Laboratory test 12/13/2010 In House Hemoglobin A1c 6.8 finding Laboratory test 09/09/2010 [facility] TSH 1.81 MIU/ML 0.34-5.60 finding [phone] Lyme Western Blot 09/09/2010 [facility] Lyme Igg Western Negative Negative Specialty [phone] Blot Lyme Igg Bands Detected No bands detecte <SEE NOTE> kDa () 69 Lyme Igm Western Blot Negative Negative Lyme Igm Bands Detected No bands detecte <SEE NOTE> kDa () 70 Lyme Disease Interpretation . () 71 CBC Auto Diff 09/09/2010 [facility] White Blood Count 6.4 CUMM 4.8- 10.8 [phone] Red Cell Count 5.12 CUMM 4.6-6.2 Hemoglobin [...] Eosinophils 0.1 0-0.6 Abs Basophils 0 0-0.2 Vitamin D, 25 09/09/2010 [facility] 25-Hydroxy Vitamin D2 <4.0 ng/mL () Hydroxy [phone] 25-Hydroxy Vitamin D3 28 ng/mL () 25-Hydroxy Vitamin D Total 28 ng/mL () 72 Laboratory test 09/09/2010 [facility] Erythrocyte Sed Rate 4 MM/HR 0 -40 finding [phone] CPK (Creatine Kinase) 233 U/L High 0-200 C Reactive Protein < 0.5 mg/dL Less Than 0.5 Laboratory test finding 03/27/2010 In House Hemoglobin A1c 6.8 Lipid Profile 11/26/2009 [facility] Triglyceride 102 mg/dL 40-200 (Trig/Chol/HDL) [phone] Cholesterol 167 mg/dL Less Than 200 73 High Density Lipoprotein 27 mg/dL Low 40-60 74 Cholesterol/HDL Ratio 6.19 AVERAGE High 1-4.97 Low Density Lipoprotein 120 mg/dL High Less Than 100 75 Laboratory test finding 11/26/2009 [facility] Alt (SGPT) 23 U/L 17- 63 [phone] Hemoglobin A1c 7.1 % High Less Than 6.0 76 Urine Microalbumin 11/26/2009 [facility] Microalbumin (MG/L) 38.0 mg/L Random [phone] Urine Creatinine 125.48 mg/dL Tesfaye Alb/Creatinine Ratio 30.2 UG/MG Less Than 30 77 Laboratory test finding 11/26/2009 [facility] PSA Screening 0.78 NG/ML 0-4 78 [phone] Glucose 55 mg/dL Low 70-100 79 Lipid Profile 07/25/2009 [facility] Triglyceride 66 mg/dL 40-200 (Trig/Chol/HDL) [phone] Cholesterol 175 mg/dL Less Than 200 80 High Density Lipoprotein 27 mg/dL Low 40-60 81 Cholesterol/HDL Ratio 6.48 AVERAGE High 1-4.97 Low Density Lipoprotein 135 mg/dL High Less Than 100 82 Laboratory test finding 07/25/2009 [facility] Alt (SGPT) 17 U/L 17- 63 [phone] Glucose 117 mg/dL High 70-100 83 Hemoglobin A1c 6.9 % High Less Than 6.0 84 Laboratory test 12/13/2008 [facility] Hemoglobin A1c 7.0 % High Less Than 85, 86 finding [phone] 6.0 Glucose 109 mg/dL High 70-100 87 Lipid Profile 07/17/2008 [facility] Triglyceride 114 mg/dL 40-200 (Trig/Chol/HDL) [phone] Cholesterol 161 mg/dL Less Than 200 88 High Density Lipoprotein 29 mg/dL Low 40-60 89 Cholesterol/HDL Ratio 5.55 AVERAGE High 1-4.97 Low Density Lipoprotein 109 mg/dL High Less Than 100 90 Liver Function Panel 07/17/2008 [facility] Total Protein 7.0 GM/DL 6.2-8.0 [phone] Albumin 4.0 GM/DL 3.2-5.2 Globulin 3.0 GM/DL 2-4 Albumin/Globulin Ratio 1.3 1-3 Bilirubin Total 0.9 mg/dL 0.4-1.5 Bilirubin Direct 0.2 mg/dL 0.1-0.5 Indirect Bilirubin 0.7 mg/dL 0.1-0.75 Alkaline Phosphatase 64 U/L 39-117 Alt (SGPT) 32 U/L 17-63 Ast (Sgot) 29 U/L 12-42 Basic Metabolic Panel 07/17/2008 [facility] Sodium 139 mmol/L 135- 145 [phone] Potassium 3.6 mmol/L 3.5-5.0 Chloride 106 mmol/L 101-111 Co2 (Carbon Dioxide) 28.0 mmol/L 22-32 Anion Gap 5.0 mmol/L 2-11 91 Glucose 133 mg/dL High 70-100 92 BUN 22 mg/dL 6-24 Creatinine 1.11 mg/dL 0.50-1.40 One Over Creatinine 0.90 BUN/Creatinine Ratio 19.8 8-20 Calcium 9.5 mg/dL 8.1-9.9 93 Laboratory test 07/17/2008 [facility] Hemoglobin A1c 7.2 % High <6.0 94 finding [phone] Liver Function 04/24/2008 [facility] Total Protein 5.8 GM/DL Low 6.2- 8.1 Panel [phone] Albumin 3.7 GM/DL 3.2-5.2 Globulin 2.1 GM/DL 2-4 Albumin/Globulin Ratio 1.8 1-3 Bilirubin Total 0.7 mg/dL 0.4-1.5 Bilirubin Direct < 0.1 mg/dL Low 0.1-0.5 Indirect Bilirubin (SEE NOTE) mg/dL 0.1-0.75 95 Alkaline Phosphatase 63 U/L 39-117 Alt (SGPT) 22 U/L 17-63 Ast (Sgot) 20 U/L 12-42 Laboratory test finding 04/24/2008 [facility] PSA Screening 0.67 NG/ML 0-4 [phone] Lipid Profile 04/24/2008 [facility] Triglyceride 118 mg/dL 40-200 (Trig/Chol/HDL) [phone] Cholesterol 236 mg/dL High Less Than 200 96 High Density Lipoprotein 31 mg/dL Low 40-60 97 Cholesterol/HDL Ratio 7.61 AVERAGE High 1-4.97 Low Density Lipoprotein 181 mg/dL High Less Than 100 98 Lipid Profile 05/27/2006 [facility] Cholesterol/HDL 6.00 High 1-4.97 (Trig/Chol/HDL) [phone] Ratio AVERAGE Cholesterol 180 mg/dL Less Than 200 99 Triglyceride 136 mg/dL 40-200 High Density Lipoprotein 30 mg/dL Low 40-60 100 Low Density Lipoprotein 123 mg/dL High Less Than 100 101 Laboratory test 05/27/2006 [facility] Alt (SGPT) 28 U/L 17-63 finding [phone] [facility] Cholesterol/HD 5.39 AVERAGE High 1-4.97 (Trig/Chol/HDL) [phone] L Ratio Cholesterol 167 mg/dL Less Than 200 102 Triglyceride 152 mg/dL 40-200 High Density Lipoprotein 31 mg/dL Low 40-60 103 Low Density Lipoprotein 106 mg/dL High Less Than 100 104 Laboratory test finding 2005 [facility] Alt (SGPT) 20 U/L 17- 63 [phone] PSA Screening 0.81 NG/ML 0.00-4.00 105 Lipid Profile 09/27/2004 [facility] Cholesterol/HDL 5.61 High 1-4.97 (Trig/Chol/HDL) [phone] Ratio AVERAGE Cholesterol 174 mg/dL Less Than 200 106 Triglyceride 113 mg/dL 40-200 High Density Lipoprotein 31 mg/dL Low 40-60 107 Low Density Lipoprotein 120 mg/dL High Less Than 100 108 Laboratory test 09/27/2004 [facility] Alt (SGPT) 21 U/L 17-63 finding [phone] Thyroxine Free 09/27/2004 [facility] Free Thyroxine 0.55 Low 0.58- 1.64 [phone] ng/dL Laboratory test 09/27/2004 [facility] [place] 0.8 0.5-1.5 finding [phone] mmol/L Basic Metabolic 09/27/2004 [facility] Anion Gap 7.0 2-11 109 Panel [phone] mmol/L BUN 16 mg/dL 6-24 Calcium 9.6 mg/dL 8.7-10.2 Chloride 106 mmol/L 101-111 Co2 (Carbon Dioxide) 28.0 mmol/L 22-32 Creatinine 1.1 mg/dL 0.5-1.4 Glucose 97 mg/dL 70-105 Potassium 4.6 mmol/L 3.5-5.0 Sodium 141 mmol/L 135-145 BUN/Creatinine Ratio 14.5 8-20 Laboratory test 09/27/2004 [facility] TSH 1.64 MIU/ML 0.34-5.60 finding [phone] Lipid Profile 04/22/2004 [facility] Cholesterol/H 4.91 AVERAGE 1- 4.97 (Trig/Chol/HDL) [phone] DL Ratio Cholesterol 172 mg/dL Less Than 200 110 Triglyceride 109 mg/dL 40-200 High Density Lipoprotein 35 mg/dL Low 40-60 111 Low Density Lipoprotein 115 mg/dL High Less Than 100 112 Laboratory test finding 04/22/2004 [facility] Alt (SGPT) 26 U/L 17- 63 [phone] PSA Screening 0.5 NG/ML 0-4 113 Liver Function Panel 11/17/2003 [facility] Albumin/Globulin Ratio 1.6 1-3 [phone] Albumin 3.9 GM/DL 3.6-5.4 Alkaline Phosphatase 55 U/L 39-117 Alt (SGPT) 16 U/L Low 17-63 Ast (Sgot) 19 U/L 12-42 Bilirubin Direct < 0.1 mg/dL Low 0.1-0.5 Globulin 2.4 GM/DL 2-4 114 Bilirubin Total 0.7 mg/dL 0.4-1.5 Total Protein [...] 5 Kidney failure <15 (or dialysis) 2 Because ethnic data is not always [...] 5 Kidney failure <15 (or dialysis) 3 Desirable: <150 Borderline High: 150-199 High: 200-499 Very High: >500 4 Desirable: <200 Borderline High: 200-239 High: >239 5 Low: <40 Desirable: 40-60 High: >60 6 Desirable: <100 Near Optimal: 100-129 Borderline High: 130-159 High: 160-189 Very High: >189 7 Because ethnic data is not always readily [...] 15-29 5 Kidney failure <15 (or dialysis) 8 SEE RESULT BELOW Name: LEFTY HARDEN : [address]: Matt Marti MD Acct: [id number] Unit: [id number] AGE: 72 Location: ED Re05/03/18 SEX: M Status: DEP ER SPEC: [id number] ROSCOE: 05/03/18 [facility] DR: Eliot Guerra MD REQ: [id number] RECD: 05/03/18 STATUS: LUDWIG AIKEN DR: [facility] Tiago Tam MD _ SOURCE: URINE SPDESC: ORDERED: Urine Culture Procedure Result Reported Site Urine Culture Final 05/05/18- 1136 ML No Growth (<1,000 CFU/mL) * ML - Main Lab . END OF REPORT DEPARTMENT OF PATHOLOGY, [address] [place] [address] Miguel A Pino M.D. Director [facility] # [id number] 9 HS aware 10 Because ethnic data is not always [...] 5 Kidney failure <15 (or dialysis) 11 [facility] Severe Sepsis and Septic Shock Management Bundle Measure requires all lactic acids initially measuring >2.0 mmol/L be repeated. 12 Troponin-I testing on Plasma Separator Tubes (PST) has a known false positive rate of 0.20-0.40%. All positive troponins reflex immediate secondary confirmatory testing. 13 Because ethnic data is not always readily [...] 15-29 5 Kidney failure <15 (or dialysis) 14 Critical Result GLU:44 Called to [id number] at: 13:26:52 by:[id number] Read back by:[id number] 15 SEE RESULT BELOW Name: POOLLEFTY J : [address]: Michoacano Ware MD Acct: [id number] Unit: [id number] AGE: 72 Location: [place] [address] Re04/11/18 SEX: M Status: ADM Janice SPEC: [id number] ROSCOE: 04/11/18-1220 [facility] DR: Addison Daly MD REQ: [id number] RECD: 04/11/18 STATUS: LUDWIG AIKEN DR: Tiago Tam MD _ SOURCE: URINE SPDESC: ORDERED: Urine Culture Procedure Result Reported Site Urine Culture Final 04/12/18- 1205 ML No Growth (<1,000 CFU/mL) * ML - Main Lab . END OF REPORT DEPARTMENT OF PATHOLOGY, [address] [place] [address] Miguel A Pino M.D. Director [facility] # [id number] 16 [employer] Process[employer] Manager: [id number] Materials And Processes Manager: [id number] 18 Because ethnic data is not always readily [...] 15-29 5 Kidney failure <15 (or dialysis) 19 Because ethnic data is not always [...] 5 Kidney failure <15 (or dialysis) 20 SEE RESULT BELOW Name: LEFTY HARDEN : [address]: Matt Marti MD Acct: [id number] Unit: [id number] AGE: 72 Location: ED Re04/03/18 SEX: M Status: DEP ER SPEC: [id number] ROSCOE: 04/03/18 [facility] DR: Matt Marti MD REQ: [id number] RECD: 04/03/18 STATUS: LUDWIG AIKEN DR: Tiago Tam MD _ SOURCE: URINE SPDESC: ORDERED: Urine Culture Procedure Result Reported Site Urine Culture Final 04/05/18- 0946 ML No Growth (<1,000 CFU/mL) * ML - Main Lab . END OF REPORT DEPARTMENT OF PATHOLOGY, [address] [place] [address] Miguel A Pino M.D. Director [facility] # [id number] 21 SEE RESULT BELOW Name: LEFTY HARDEN : [address]: Romeo Chavarria DO Acct: [id number] Unit: [id number] AGE: 72 Location: ENDO Re12/10/17 SEX: M Status: REG REF SPEC: [id number] ROSCOE: 12/10/17- SUBM DR: Romeo Chavarria DO REQ: [id number] RECD: 12/10/17-1325 STATUS: LAN AIKEN DR: Tiago Tam MD [...] 1242 END OF REPORT DEPARTMENT OF PATHOLOGY, [address], [place], [place] [address] Miguel A Pino M.D. Director [facility] # [id number] 22 Test Performed by: [facility] [address] [place] [address] 23 Normal Range 180 to 914 Indeterminate Range 145 to 180 Deficient Range <145 24 ADDITIONAL INFORMATION This test was developed and its performance characteristics determined by [facility] in a manner consistent with CLIA requirements. This test has not been cleared or approved by the U.S. Food and Drug Administration. Test Performed by: [facility] [address] [place] [address] 25 Serum levels of PSA measured using the [employer] DXI Hybritech immunoassay should not be interpreted as absolute evidence of the presence or absence of disease. The PSA value should be used in conjunction with other pertinent clinical diagnostic procedures. The values obtained with different assay methods or kits cannot be used interchangeably. 26 Normal Range 180 to 914 Indeterminate Range 145 to 180 Deficient Range <145 27 Desirable: <150 Borderline High: 150-199 High: 200-499 Very High: >500 28 Desirable: <200 Borderline High: 200-239 High: >239 29 Low: <40 Desirable: 40-60 High: >60 30 Desirable: <100 Near Optimal: 100-129 Borderline High: 130-159 High: 160-189 Very High: >189 31 FASTING 12 HOUR 32 Because ethnic data is not always readily [...] 15-29 5 Kidney failure <15 (or dialysis) 33 Desirable <150 Borderline high 150-199 High 200-499 Very High >500 34 Desirable <200 Borderline high 200-239 High >239 35 Low <40 Desirable: 40-60 High: >60 36 Desirable: <100 mg/dL Near Optimal: 100-129 mg/dL Borderline High: 130-159 mg/dL High: 160-189 mg/dL Very High: >189 mg/dL 37 FASTING 12 HOUR 38 [id number] 39 SEE RESULT BELOW Name: LEFTY HARDEN : [address]: Tiago Tam MD Acct: [id number] Unit: [id number] AGE: 70 Location: [facility] Re12/12/15 SEX: M Status: REG REF SPEC: [id number] ROSCOE: 12/12/15-1019 [facility] DR: Tiago Tam MD REQ: [id number] RECD: 12/12/15-0603 STATUS: SOUT _ ORDERED: LEVEL IV COMMENTS: [id number] FINAL DIAGNOSIS Skin, right mid forearm, excision: -- Scar, completely excised. -- No evidence of residual squamous cell carcinoma. COMMENT: The previous lesion at this site ([id number]) has been completely excised. CLINICAL HISTORY Presents [...] performed at Main Lab DEPARTMENT OF PATHOLOGY, [address] [place] [address] Miguel A Pino M.D. Director [facility] # [id number] 40 [id number] 41 SEE RESULT BELOW Name: LEFTY HARDEN : [address]: Tiago Tam MD Acct: [id number] Unit: [id number] AGE: 70 Location: [facility] Re10/17/15 SEX: M Status: REG REF SPEC: [id number] ROSCOE: 10/17/15-1623 [facility] DR: Tiago Tam MD REQ: [id number] RECD: 10/18/15-1255 STATUS: SOUT _ ORDERED: LEVEL IV COMMENTS: [id number] FINAL DIAGNOSIS Skin, right forearm, biopsy: -- [...] performed at Main Lab DEPARTMENT OF PATHOLOGY, [address] [place] [address] Miguel A Pino M.D. Director [facility] # [id number] 42 Serum levels of PSA measured using the [employer] DXI Hybritech immunoassay should not be interpreted as absolute evidence of the presence or absence of disease. The PSA value should be used in conjunction with other pertinent clinical diagnostic procedures. The values obtained with different assay methods or kits cannot be used interchangeably. 43 SEE RESULT BELOW Name: LEFTY HARDEN : [address]: Constantin Hernandez MD Acct: [id number] Unit: [id number] AGE: 69 Location: ENDO Re12/12/14 SEX: M Status: REG REF SPEC: [id number] ROSCOE: 12/12/14- SUBM DR: Constantin Hernandez MD REQ: [id number] RECD: 12/12/14-1449 STATUS: LAN AIKEN DR: Tiago [...] performed at Main Lab DEPARTMENT OF PATHOLOGY, [address] [place] [address] Miguel A Pino M.D. Director [facility] # [id number] 44 Desirable <150 Borderline high 150-199 High 200-499 Very High >500 45 Desirable <200 Borderline high 200-239 High >239 46 Low <40 Desirable: 40-60 High: >60 47 Desirable: <100 mg/dL Near Optimal: 100-129 mg/dL Borderline High: 130-159 mg/dL High: 160-189 mg/dL Very High: >189 mg/dL 48 Because ethnic data is not always [...] 5 Kidney failure <15 (or dialysis) 49 Desirable <150 Borderline high 150-199 High 200-499 Very High >500 50 Desirable <200 Borderline high 200-239 High >239 51 Low <40 Desirable: 40-60 High: >60 52 Desirable <100 Near Optimal 100-129 Borderline high 130-159 High 160-189 Very High >189 53 Because ethnic data is not always readily [...] 15-29 5 Kidney failure <15 (or dialysis) 54 Nonsmokers: < 2.9 ng/mL Some smokers may have elevated CEA, usually <5.0 ng/mL. Serum markers are not specific for malignancy, and values may vary by method. The testing method is an immunoenzymatic assay gristmiller by [employer] performed on [employer] DXI 600. Do not interpret serum CEA levels as absolute evidence of the presence or the absence of malignant disease. Use serum CEA in conjunction with information from the clinical evaluation of the patient and other diagnostic procedures. 55 Therapeutic target for the treatment of diabetes Mellitus patients is <7% HBA1C, and in selective patients <6.0%.Please refer to [place] [employer] Diabetic care guidelines for further information. 56 RUN DATE: 10/03/13 [facility] LAB LIVE PAGE 1 RUN TIME: [address] [place] [address] Specimen Inquiry Name: LEFTY HARDEN : [address]: Constantin Hernandez MD Acct: [id number] Unit: [id number] AGE: 68 Location: ENDORUST Re09/28/13 SEX: M Status: REG REF SPEC: [id number] ROSCOE: 09/28/13- SUBM DR: Constantin Hernandez MD REQ: [id number] RECD: 09/28/13 STATUS: LAN AIKEN DR: Tiago [...] performed at Main Lab DEPARTMENT OF PATHOLOGY, [facility] [employer] [place], [place] [address] Miguel A Pino M.D. Director [facility] # [id number] RUN DATE: 10/03/13 [facility] LAB LIVE PAGE 2 RUN TIME: [address] [place] [address] Specimen Inquiry Patient: LEFTY HARDEN [id number] (Continued) CLINICAL HISTORY (Continued) CLINICAL HISTORY Screening [...] performed at Main Lab DEPARTMENT OF PATHOLOGY, [address] [place] [address] Miguel A Pino M.D. Director [facility] # [id number] 57 Because ethnic data is not always readily [...] 15-29 5 Kidney failure <15 (or dialysis) 58 HDL Interpretation: Undesirable: High Risk: Less than 40 mg/dL Desirable: Low Risk: Greater than 60 mg/dL 59 LDL Interpretation: Low Risk Optimal Level: LDL Less than 100 mg/dL Near or Above Optimal: LDL 100-129 mg/dL Borderline High Risk: LDL 130-159 mg/dL High Risk: LDL 160-189 mg/dL Very High Risk: LDL Greater than 189 mg/dL 60 FASTING 61 Serum levels of PSA measured using the [employer] DXI Hybritech immunoassay should not be interpreted as absolute evidence of the presence or absence of disease. The PSA value should be used in conjunction with other pertinent clinical diagnostic procedures. The values obtained with different assay methods or kits cannot be used interchangeably. 62 Microalbuminuria in a random sample is defined as: Microalbumin/Creatinine ratio of 30-299 ug/mg. 63 HDL Interpretation: Undesirable: High Risk: Less than 40 MG/DL Desirable: Low Risk: Greater than 60 MG/DL 64 LDL Interpretation: Low Risk Optimal Level: LDL Less than 100 MG/DL Near or Above Optimal: LDL 100-129 MG/DL Borderline High Risk: LDL 130-159 MG/DL High Risk: LDL 160-189 MG/DL Very High Risk: LDL Greater than 189 MG/DL 65 CHOLESTEROL INTERPRETATION: Desirable: Less than 200 [...] Risk: LDL Greater than 189 MG/DL 68 MICROALBUMINURIA IN A RANDOM SAMPLE IS DEFINED : MICROALBUMIN/CREATININE RATIO OF 30-299 ug/mg. . 69 No bands detected 70 No bands detected 71 Specific serologic response to B. burgdorferi infection [...] Test performed by immunoblot. Test Performed by: [facility] Dpt of Lab Med and Pathology [address] [place] [address] Boiler Washer: French Blackwell III, M.D. 72 -- REFERENCE VALUE -- 25-HYDROXY D TOTAL (D2+D3) Optimum levels in the normal population are 25-80 Test Performed by: [facility] Dpt of Lab Med and Pathology [address] [place] [address] Boiler Washer: French Blackwell III, M.D. 73 CHOLESTEROL INTERPRETATION: Desirable: Less than 200 MG/DL Borderline-High Risk: 200-239 MG/DL High-Risk: 240 MG/DL and over 74 HDL INTERPRETATION: Undesirable: High Risk: Less than 40 MG/DL Desirable: Low Risk: Greater than 60 MG/DL 75 LDL INTERPRETATION: Low Risk Optimal Level: LDL Less than 100 MG/DL Near or Above Optimal: LDL 100-129 MG/DL Borderline High Risk: LDL 130-159 MG/DL High Risk: LDL 160-189 MG/DL Very High Risk: LDL Greater than 189 MG/DL 76 THERAPEUTIC TARGET FOR THE TREATMENT OF DIABETES MELLITUS PATIENTS IS <7% HBA1C, AND IN SELECTIVE PATIENTS <6.0%. PLEASE REFER TO [place] [employer] DIABETIC CARE GUIDELINES FOR FURTHER INFORMATION. 77 MICROALBUMINURIA IN A RANDOM SAMPLE IS DEFINED : MICROALBUMIN/CREATININE RATIO OF 30-299 ug/mg. . 78 * SERUM LEVELS OF PSA MEASURED USING THE [employer]CH IMMUNOASSAY SHOULD NOT BE INTERPRETED ABSOLUTE EVIDENCE OF THE PRESENCE OR ABSENCE OF DISEASE. THE PSA VALUE SHOULD BE USED IN CONJUNCTION WITH OTHER PERTINENT CLINICAL DIAGNOSTIC PROCEDURES. 79 Note change in reference range as of 11/25/07. The change was based on recommendations from the [place] [employer]. 80 CHOLESTEROL INTERPRETATION: Desirable: Less [...] Risk: LDL Greater than 189 MG/DL 83 Note change in reference range as of 11/25/07. The change was based on recommendations from the [place] [employer]. 84 THERAPEUTIC TARGET FOR THE TREATMENT OF DIABETES MELLITUS PATIENTS IS <7% HBA1C, AND IN SELECTIVE PATIENTS <6.0%. PLEASE REFER TO [place] [employer] DIABETIC CARE GUIDELINES FOR FURTHER INFORMATION. 85 FASTING 86 THERAPEUTIC TARGET FOR THE TREATMENT OF DIABETES MELLITUS PATIENTS IS <7% HBA1C, AND IN SELECTIVE PATIENTS <6.0%. PLEASE REFER TO [place] [employer] DIABETIC CARE GUIDELINES FOR FURTHER INFORMATION. 87 Note change in reference range as of 11/25/07. The change was based on recommendations from the [place] [employer]. 88 CHOLESTEROL INTERPRETATION: Desirable: Less than 200 MG/DL Borderline-High Risk: 200-239 MG/DL High-Risk: 240 MG/DL and over 89 HDL INTERPRETATION: Undesirable: High Risk: Less than 40 MG/DL Desirable: Low Risk: Greater than 60 MG/DL 90 LDL INTERPRETATION: Low Risk Optimal Level: LDL Less than 100 MG/DL Near or Above Optimal: LDL 100-129 MG/DL Borderline High Risk: LDL 130-159 MG/DL High Risk: LDL 160-189 MG/DL Very High Risk: LDL Greater than 189 MG/DL 91 Anion gap measurement may be of limited value in the presence of any alkalosis, especially in a combined acid base disorder. . 92 Note change in reference range as of 11/25/07. The change was based on recommendations from the [place] [employer]. 93 Please note change in reference range effective 07 . 94 THERAPEUTIC TARGET FOR THE TREATMENT OF DIABETES MELLITUS PATIENTS IS <7% HBA1C, AND IN SELECTIVE PATIENTS <6.0%. PLEASE REFER TO [place] [employer] DIABETIC CARE GUIDELINES FOR FURTHER INFORMATION. 95 UNABLE TO CALCULATE IND.BILI D.BILI IS <0.1 96 CHOLESTEROL INTERPRETATION: Desirable: Less than 200 MG/DL Borderline-High Risk: 200-239 MG/DL High-Risk: 240 MG/DL and over 97 HDL INTERPRETATION: Undesirable: High Risk: Less than 40 MG/DL Desirable: Low Risk: Greater than 60 MG/DL 98 LDL INTERPRETATION: Low Risk Optimal Level: LDL Less than 100 MG/DL Near or Above Optimal: LDL 100-129 MG/DL Borderline High Risk: LDL 130-159 MG/DL High Risk: LDL 160-189 MG/DL Very High Risk: LDL Greater than 189 MG/DL 99 Classification: Desirable . 100 Classification: Low . 101 CALCULATED LDL APPROXIMATES THE VALUE OF A DIRECT LDL MEASUREMENT. Classification: Near or above optimal . 102 Classification: Desirable . 103 Classification: Low . 104 CALCULATED LDL APPROXIMATES THE VALUE OF A DIRECT LDL MEASUREMENT. Classification: Near or above optimal . 105 * SERUM LEVELS OF PSA MEASURED USING THE [employer] ACCESS HYBRITECH IMMUNOASSAY SHOULD NOT BE INTERPRETED ABSOLUTE EVIDENCE OF THE PRESENCE OR ABSENCE OF DISEASE. THE PSA VALUE SHOULD BE USED IN CONJUNCTION WITH OTHER PERTINENT CLINICAL DIAGNOSTIC PROCEDURES. 106 Classification: Desirable . 107 Classification: Low . 108 CALCULATED LDL APPROXIMATES THE VALUE OF A DIRECT LDL MEASUREMENT. Classification: Near or above optimal . 109 Anion gap measurement may be of limited value in the presence of any alkalosis, especially in a combined acid base disorder. . 110 Classification: Desirable . 111 Classification: Low . 112 CALCULATED LDL APPROXIMATES THE VALUE OF A DIRECT LDL MEASUREMENT. Classification: Near or above optimal . 113 * SERUM LEVELS OF PSA MEASURED USING THE [employer] ACCESS HYBRITECH IMMUNOASSAY SHOULD NOT BE INTERPRETED ABSOLUTE EVIDENCE OF THE PRESENCE OR ABSENCE OF DISEASE. THE PSA VALUE SHOULD BE USED IN CONJUNCTION WITH OTHER PERTINENT CLINICAL DIAGNOSTIC PROCEDURES. A PSA value in the range of 0.1 to 0.6 ng/ml is indeterminate if being used as an indicator of recurrent or residual disease. . 114 UNABLE TO CALCULATE IND.BILI D.BILI IS <0.1 Procedures Date Code Description Status 01/19/2018 01506 I & D Abscess Simple Completed 12/10/2017 28496565 Colonoscopy Completed 10/26/2017 492648918 Diabetic Retinal Eye Exam Completed 08/28/2017 44319 Electrocardiogram Complete Completed 04/20/2017 862692448 Diabetic Foot Exam Completed 04/20/2017 34743 Electrocardiogram Complete Completed 04/21/2016 46504 Electrocardiogram Complete Completed 12/11/2015 45966 Excise Malig Lesion .6-1CM Trunk/Arm/Leg Completed 10/17/2015 35011 Shave Skin Lesion .6-1CM Trunk/Arm/Leg Completed 11/13/2014 75173 Electrocardiogram Complete Completed 10/19/2013 59727 X-Ray Chest Two Views Completed 10/19/2013 95998 Electrocardiogram Complete Completed 11/15/2012 54269 Electrocardiogram Complete Completed 11/15/2012 01088 X-Ray Chest Two Views Completed 11/15/2012 54053 Destruction Premalignant Skin Lesions Completed 09/01/2012 96491 X-Ray Chest Two Views Completed 11/10/2011 92011 Electrocardiogram Complete Completed 11/10/2011 52687 Remove Impact Cerumen Requiring Instrument, Unilateral Completed 12/13/2010 35773 Visual Acuity Screening Test Completed 03/27/2010 42829 Electrocardiogram Complete Completed 01/01/2010 0 Payment Completed 09/27/2004 71950 Electrocardiogram Complete Completed 04/22/2004 25787 Remove Impact Cerumen Requiring Instrument, Unilateral Completed [...] wall Office Visit 01/19/2018 4:20p Main Office Kaliee Slaughter, L03.313 Cellulitis of P.A. chest wall L03.313 Cellulitis of chest wall L72.3 Sebaceous cyst L72.3 Sebaceous cyst Office Visit 01/16/2018 9:30a Main Office Kailee Slaughter, L03.313 Cellulitis of P.A. 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 general adult medical exam w abnormal findings E11.65 Type 2 diabetes mellitus with hyperglycemia E11.21 Type 2 diabetes mellitus with diabetic nephropathy Z41.8 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 Office Visit 04/20/2017 11:45a Main Office Anel E11.65 Type 2 diabetes Cha Ordoñez mellitus with hyperglycemia E11.21 Type 2 diabetes mellitus with diabetic nephropathy F41.9 Anxiety disorder, unspecified E78.00 Pure hypercholesterolemia, unspecified K14.6 Glossodynia R23.4 Changes in skin texture Z23 Encounter for immunization E11.628 Type 2 diabetes mellitus with other skin complications Office Visit 10/14/2016 8:45a Main Office Tiago Tam.65 Type 2 diabetes Cha Ordoñez mellitus with hyperglycemia F41.9 Anxiety disorder, unspecified M25.50 Pain in unspecified joint E78.00 Pure hypercholesterolemia, unspecified Office Visit 08/16/2016 10:30a Main Office Leonila Marr PA M25.512 Pain in left shoulder M25.541 Pain in joints of right hand Office Visit 07/22/2016 2:45p Main Office ChloeperlitaGomezon, M25.512 Pain in left D.O. shoulder M25.541 Pain in joints of right hand Office Visit 05/24/2016 11:00a Main Office Yung Jose, J31.0 Chronic rhinitis D.O. 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, inc shoulder F41.9 Anxiety disorder, unspecified E11.65 Type 2 diabetes mellitus with hyperglycemia Office Visit 12/11/2015 2:30p Main Office Tiago Tam, C44.622 Squamous cell [...] ear Office Visit 05/21/2015 10:45a Main Office Lana Tam Type 2 diabetes Cha Ordoñez mellitus with hyperglycemia Office Visit 02/14/2015 9:30a Main Office Silcoff, E11.65 Type 2 diabetes Cha Ordoñez mellitus with hyperglycemia Z23 Encounter for immunization Z41.8 Encntr for oth proc for purpose oth [facility] Office Visit 11/13/2014 3:30p Main Office Rhianna [...] Office Visit 10/19/2013 12:55p Main Office Tiago Tam V72.84 Examination M.D. Preoperative Unspec 796.2 Blood [...] Anel 272.0 Hypercholesterolemia Pure 9:45a Cha Ordoñez 300.02 Anxiety Disorder Generalized 278.02 Overweight V76.51 Special Screening For Malignant Neoplasms Colon 530.81 Esophageal Reflux Office Visit 09/30/2005 Main Office Anel 272.0 Hypercholesterolemia Pure 10:45a Cha Ordoñez 300.02 [...]
[2018-05-12 13:11] LABS: ABS Basophils 0.1 10^3/ul (0-0.2); ABS Eosinophils 0.4 10^3/ul (0-0.6); ABS Lymphocytes 1.1 10^3/ul (1.0-4.8); ABS Monocytes 0.7 10^3/ul (0-0.8); ABS Neutrophils 4.5 10^3/ul (1.5-7.7); ABS Nucleated RBC 0 10^3/ul; Eosinophil % 5.7 %; Hematocrit 40 % (42-52); Hemoglobin 13.2 g/dl (14.0-18.0); Lymphocyte % 16.1 %; Mean Corpuscular HGB Conc 33 g/dl (31-36); Mean Corpuscular Hemoglobin 27 pg (27-31); Mean Corpuscular Volume 82 fL (80-94); Mean Platelet Volume 8.4 fL (7.4-10.4); Nucleated Red Blood Cells % 0.1; Platelet Count 303 10^3/ul (150-450); Red Blood Count 4.95 10^6/ul (4.00-5.40); Red Cell Distribution Width 18 % (10.5-15); White Blood Count 6.7 10^3/ul (3.5-10.8)
[2018-05-12 13:26] LABS: INR 0.9 (0.77-1.02)
[2018-05-12 13:30] LABS: Albumin 1.8 g/dL (3.2-5.2); Albumin/Globulin Ratio 0.7 (1-3); BUN/Creatinine Ratio 16.9 (8-20); C Reactive Protein 6.97 mg/L (<8.01); Calcium 7.8 mg/dL (8.6-10.3); EGFR African American 24.8 (>60); EGFR Non-African American 20.5 (>60); Globulin 2.7 g/dL (2-4); Magnesium 2.4 mg/dL (1.9-2.7); Potassium 4.2 mmol/L (3.5-5.0); Total Bilirubin 0.2 mg/dL (0.2-1.0); Total Protein 4.5 g/dL (6.4-8.9)
[2018-05-12 13:32] LABS: Troponin I 0.01 ng/mL (<0.04)
--- NOTE | 2018-05-12 14:44 | ED ---
GI/ HPI - HPI Summary HPI Summary: Pt is a 72 y/o male who presents to the ED c/o urinary retention. He is a pt of Dr. Em with known kidney failure, not on dialysis. Pt has not been able to urinate since 3:00 this morning. He feels like he is retaining fluid, however he does not have the urge to urinate. He is worried that his kidneys are shutting down and requests emergency dialysis. Pt also c/o cough and SOB with exertion, but denies any fever, chills, abdominal pain, or back pain. The discomfort is rated a 7/10 in intensity. He is currently taking Furosemide. Pt has gained 4 lbs of water weight in the past few weeks. He has a kidney biopsy scheduled next week. - History of Current Complaint Chief Complaint: EDUrogenitalProblems Time Seen by Provider: 05/12/18 14:09 Stated Complaint: GENERAL Hx Obtained From: Patient Onset/Duration: Started Hours Ago - 3:00, Still Present Timing: Constant Current Severity: Moderate Pain Intensity: 7 Location of Pain: Diffuse Associated Signs and Symptoms: Positive: Cough. Negative: Back Pain, Fever, Chills, Abdominal Pain Aggravating Factor(s): Nothing Alleviating Factor(s): Nothing - Additional Pertinent History Primary Care Physician: [id number] - Allergy/Home Medications Allergies/Adverse Reactions: Allergies Allergy/AdvReac Type Severity Reaction Status Date / Time No Known Allergies Allergy Verified 05/12/18 12:14 PMH/Surg Hx/FS Hx/Imm Hx Endocrine/Hematology History: Reports: Hx Diabetes - METFORMIN Cardiovascular History: Reports: Hx Hypercholesterolemia Denies: Hx Congestive Heart Failure History: Reports: Hx Chronic Renal Failure Sensory History: Reports: Hx Contacts or Glasses - READING Denies: Hx Cataracts, Hx Hearing Aid Opthamlomology History: Reports: Hx Contacts or Glasses - READING Denies: Hx Cataracts Psychiatric History: Reports: Hx Anxiety - NO TREATED - Surgical History Surgery Procedure, Year, and Place: WISDOM TEETH REMOVAL 2009. BASAL SKIN CA REMOVAL 10 YRS AGO Hx Anesthesia Reactions: No Infectious Disease History: No Infectious Disease History: Denies: Traveled Outside the [place] in Last 30 Days - Family History Known Family History: Negative: Cardiac Disease, Hypertension, Diabetes - Social History Alcohol Use: None Hx Substance Use: No Substance Use Type: Reports: None Hx Tobacco Use: No Smoking Status (MU): Never Smoked Tobacco Review of Systems Negative: Fever, Chills Positive: Shortness Of Breath - with exertion, Cough Negative: Abdominal Pain Positive: other - retention, NEGATIVE: sensation of urination Negative: Myalgia - back All Other Systems Reviewed And Are Negative: Yes Physical Exam - Summary Physical Exam Summary: GENERAL: Patient is a well-developed and nourished M who is lying comfortable in the stretcher. Patient is not in any acute respiratory distress. HEAD AND FACE: Normocephalic EYES: PERRLA, EOMI x 2. EARS: Hearing grossly intact. MOUTH: Oropharynx within normal limits. NECK: Supple, trachea is midline, no adenopathy, no JVD, no carotid bruit. CHEST: Symmetric, no tenderness at palpation LUNGS: Clear to auscultation bilaterally. No wheezing or crackles. CVS: Regular rate and rhythm, S1 and S2 present, no murmurs or gallops appreciated. ABDOMEN: Soft, non-tender. Bowel sounds are normal. No abdominal abnormal pulsations. EXTREMITIES: Full ROM in all major joints, no cyanosis or clubbing. 3+ pitting edema on BLE and BUE. NEURO: Alert and oriented x 3. No acute neurological deficits. Speech is normal and follows commands. SKIN: Dry and warm Triage Information Reviewed: Yes Vital Signs On Initial Exam: Initial Vitals Temp Pulse Resp BP Pulse Ox 97.2 F 85 19 99/67 96 05/12/18 12:07 05/12/18 12:07 05/12/18 12:07 05/12/18 12:07 05/12/18 12:07 Vital Signs Reviewed: Yes Diagnostics - Vital Signs Vital Signs Temp Pulse Resp BP Pulse Ox 05/12/18 14:23 70 05/12/18 14:21 70 123/84 97 05/12/18 12:07 97.2 F 85 19 99/67 96 - Laboratory Lab Results: Lab Results 05/12/18 05/12/18 05/12/18 Range/Units 12:53 12:55 12:55 WBC 6.7 (3.5-10.8) 10^3/ul RBC 4.95 (4.00-5.40) 10^6/ul Hgb 13.2 L (14.0-18.0) g/dl Hct 40 L (42-52) % MCV 82 (80-94) fL MCH 27 (27-31) pg MCHC 33 (31-36) g/dl RDW 18 H (10.5-15) % Plt Count 303 (150-450) 10^3/ul MPV 8.4 (7.4-10.4) fL Neut % (Auto) 67.5 % Lymph % (Auto) 16.1 % Barnwell % (Auto) 9.9 % Eos % (Auto) 5.7 % Baso % (Auto) 0.8 % Absolute Neuts (auto) 4.5 (1.5-7.7) 10^3/ul Absolute Lymphs (auto) 1.1 (1.0-4.8) 10^3/ul Absolute Monos (auto) 0.7 (0-0.8) 10^3/ul Absolute Eos (auto) 0.4 (0-0.6) 10^3/ul Absolute Basos (auto) 0.1 (0-0.2) 10^3/ul Absolute Nucleated RBC 0 10^3/ul Nucleated RBC % 0.1 INR (Anticoag Therapy) 0.90 (0.77-1.02) APTT 37.0 H (26.0-36.3) seconds Sodium 140 (135-145) mmol/L Potassium 4.2 (3.5-5.0) mmol/L Chloride 112 H (101-111) mmol/L Carbon Dioxide 23 (22-32) mmol/L Anion Gap 5 (2-11) mmol/L BUN 51 H (6-24) mg/dL Creatinine 3.02 H (0.67-1.17) mg/dL Est GFR ( Amer) 24.8 (>60) Est GFR (Non-Af Amer) 20.5 (>60) BUN/Creatinine Ratio 16.9 (8-20) Glucose 112 H (70-100) mg/dL Lactic Acid (0.5-2.0) mmol/L Calcium 7.8 L (8.6-10.3) mg/dL Magnesium 2.4 (1.9-2.7) mg/dL Total Bilirubin 0.20 (0.2-1.0) mg/dL AST 31 (13-39) U/L ALT 22 (7-52) U/L Alkaline Phosphatase 91 (34-104) U/L Total Creatine Kinase 320 H (10-223) U/L Troponin I 0.01 (<0.04) ng/mL C-Reactive Protein 6.97 (<8.01) mg/L B-Natriuretic Peptide (<=100) pg/mL Total Protein 4.5 L (6.4-8.9) g/dL Albumin 1.8 L (3.2-5.2) g/dL Globulin 2.7 (2-4) g/dL Albumin/Globulin Ratio 0.7 L (1-3) Lipase 39 (11.0-82.0) U/L 05/12/18 05/12/18 Range/Units 12:55 12:55 WBC (3.5-10.8) 10^3/ul RBC (4.00-5.40) 10^6/ul Hgb (14.0-18.0) g/dl Hct (42-52) % MCV (80-94) fL MCH (27-31) pg MCHC (31-36) g/dl RDW (10.5-15) % Plt Count (150-450) 10^3/ul MPV (7.4-10.4) fL Neut % (Auto) % Lymph % (Auto) % Barnwell % (Auto) % Eos % (Auto) % Baso % (Auto) % Absolute Neuts (auto) (1.5-7.7) 10^3/ul Absolute Lymphs (auto) (1.0-4.8) 10^3/ul Absolute Monos (auto) (0-0.8) 10^3/ul Absolute Eos (auto) (0-0.6) 10^3/ul Absolute Basos (auto) (0-0.2) 10^3/ul Absolute Nucleated RBC 10^3/ul Nucleated RBC % INR (Anticoag Therapy) (0.77-1.02) APTT (26.0-36.3) seconds Sodium (135-145) mmol/L Potassium (3.5-5.0) mmol/L Chloride (101-111) mmol/L Carbon Dioxide (22-32) mmol/L Anion Gap (2-11) mmol/L BUN (6-24) mg/dL Creatinine (0.67-1.17) mg/dL Est GFR ( Amer) (>60) Est GFR (Non-Af Amer) (>60) BUN/Creatinine Ratio (8-20) Glucose (70-100) mg/dL Lactic Acid 0.7 (0.5-2.0) mmol/L Calcium (8.6-10.3) mg/dL Magnesium (1.9-2.7) mg/dL Total Bilirubin (0.2-1.0) mg/dL AST (13-39) U/L ALT (7-52) U/L Alkaline Phosphatase (34-104) U/L Total Creatine Kinase (10-223) U/L Troponin I (<0.04) ng/mL C-Reactive Protein (<8.01) mg/L B-Natriuretic Peptide 22 (<=100) pg/mL Total Protein (6.4-8.9) g/dL Albumin (3.2-5.2) g/dL Globulin (2-4) g/dL Albumin/Globulin Ratio (1-3) Lipase (11.0-82.0) U/L Result Diagrams: 05/12/18 12:55 05/12/18 12:55 Lab Statement: Any lab studies that have been ordered have been reviewed, and results considered in the medical decision making process. - Radiology CXR Radiology Interpretation Completed By: Radiologist Summary of Radiographic Findings: HYPERINFLATION. SMALL BILATERAL PLEURAL EFFUSIONS. ED physician reviewed radiology report. - EKG 14:12 Cardiac Rate: NL - 71 bpm EKG Rhythm: Sinus Rhythm EKG Comparison: No Significant Change - Similar to EKG on 05/03/18. Summary of EKG Findings: Nl axis. Re-Evaluation - Re-Evaluation First Eval Re-Evaluation Time: 14:59 Change: Unchanged Comment: Bladder scan reveals 200. Second Eval Re-Evaluation Time: 15:20 Change: Unchanged Comment: Pt has urinated while in the ED but still requests a straight cath. GIGU Course/Dx - Course Course Of Treatment: Pt is a 72 y/o male who presents to the ED c/o urinary retention. A CXR revealed HYPERINFLATION. SMALL BILATERAL PLEURAL EFFUSIONS. An EKG was normal with a rate of 71 bpm. Discussed case with his campus interviews intern Dr. Em who believes the pt to have diabetic nephropathy, and that his fluid retention is due to his low albumin. There are no indications for dialysis at this time and pt should follow up with him after his upcoming biopsy. Pt will be discharged with final dx of edema and chronic kidney disease. I discussed results with patient and he reports feeling better. He is hemodynamically stable and safe for discharge. Strict return precautions given and he will otherwise follow up with his PCP. - Diagnoses Provider Diagnoses: Edema, Chronic kidney disease - Physician Notifications Discussed Care Of Patient With: Eusebio Em Time Discussed With Above Provider: 15:07 Instructed by Provider To: Other - Dr. Em believes the pt to have diabetic nephropathy, and that his fluid retention is due to his low albumin. There are no indications for dialysis at this time and pt should follow up with him after his upcoming biopsy. Discharge - Sign-Out/Discharge Documenting (check all that apply): Patient Departure - Discharge Patient Received Moderate/Deep Sedation with Procedure: No - Discharge Plan Condition: Stable Disposition: HOME Patient Education Materials: Edema (ED) Referrals: Eusebio Em MD [Medical Doctor] - Tiago Tam MD [Primary Care Provider] - (1-3 days) Additional Instructions: Follow up with your primary care physician in 1-3 days. Go to your scheduled biopsy and follow up with your campus interviews intern afterwards. RETURN TO THE EMERGENCY DEPARTMENT FOR CHANGING OR WORSENING SYMPTOMS. - Billing Disposition and Condition Condition: STABLE Disposition: Home - Attestation Statements Document Initiated by Hanna: Yes Documenting Scribe: Elana Larson Provider For Whom Hanna is Documenting (Include Credential): Jarred Garza MD Scribe Attestation: IElana, scribed for Jarred Garza MD on 05/12/18 at 1843. Scribe Documentation Reviewed: Yes Provider Attestation: The documentation as recorded by the Elana reyez accurately reflects the service I personally performed and the decisions made by me, Jarred Garza MD Status of Scribe Document: Viewed
[2018-05-12 14:55] LABS: Urine Appearance Cloudy; Urine Bacteria Absent (Absent); Urine Bilirubin Negative (Negative); Urine Blood 2+ (Negative); Urine Color Yellow; Urine Glucose 3+(>=500 mg/dL) (Negative); Urine Granular Casts Present (Absent); Urine Ketones Negative (Negative); Urine Nitrite Negative (Negative); Urine Protein 3+(>=500 mg/dL) (Negative); Urine Red Blood Cell 1+(3-5/hpf) (Absent); Urine Urobilinogen Negative (Negative); Urine White Blood Cell 1+(6-10/hpf) (Absent)
[2018-05-12 15:41] VITALS: BP 123/74
== END 2018-05-12 15:41 | disposition home or self-care (01) ==
LOC: ED 11:55
DX: N19 Unspecified kidney failure (principal); R05 Cough; R33.9 Retention of urine, unspecified; R06.02 Shortness of breath; R60.9 Edema, unspecified
CPT/HCPCS: 36415; 71046; 80053; 81003; 81015; 82550; 83605; 83690; 83735; 83880; 84484; 85025; 85610; 85730; 86140; 87086; 93005; 99282

== ENCOUNTER 2018-05-13 14:58 | Inpatient (IN) | payer MEDICARE, BC ==
[2018-05-13] MEDS ORDERED: Albumin Human 5%* 12.5 GM/250 ML BTL IV ONE (15:12)
--- NOTE | 2018-05-13 15:29 | ED ---
Complex/Multi-Sys Presentation - HPI Summary HPI Summary: This patient is a 72 year old male presenting to the emergency department with a CC of fluid retention. The patient gained 45 lbs in the last week and has a kidney biopsy in a week. The patient has had SOB, genital edema, and bilateral LE edema. He has contacted Dr Em and he suggested the patient come to the ED. - History Of Current Complaint Chief Complaint: EDGeneral Time Seen by Provider: 05/13/18 15:10 Hx Obtained From: Patient Onset/Duration: Still Present Timing: Constant Severity Currently: Moderate Severity Initially: Moderate Location: Negative - pain Associated Signs And Symptoms: Positive: Edema, Fever - Allergies/Home Medications Allergies/Adverse Reactions: Allergies Allergy/AdvReac Type Severity Reaction Status Date / Time No Known Allergies Allergy Verified 05/12/18 12:14 Home Medications: Home Medications Candesartan (NF) [Atacand (NF)] 16 mg PO BID 05/13/18 [History Confirmed ] Cyanocobalamin TAB* [Vitamin B12 TAB*] 1,000 mcg PO DAILY 05/13/18 [History Confirmed 05/13/18] Furosemide TAB* [Lasix TAB*] 80 mg PO BID 05/13/18 [History Confirmed 05/13/18] Insulin NPH Human Isophane [Humulin N Kwikpen] 2 units SUBCUT QPM 05/13/18 [ History Confirmed 05/13/18] Insulin NPH Human Isophane [Humulin N Kwikpen] 6 unit SUBCUT QAM 05/13/18 [ History Confirmed 05/13/18] Ondansetron TAB* [Zofran 4 MG Tab*] 4 mg PO Q6H PRN 05/13/18 [History Confirmed 05/13/18] clonazePAM TAB(*) [KlonoPIN TAB(*)] 0.5 mg PO DAILY PRN 05/13/18 [History Confirmed 05/13/18] diphenhydrAMINE HCl [Sleep Aid] 25 mg PO BEDTIME 05/13/18 [History Confirmed 10/22] PMH/Surg Hx/FS Hx/Imm Hx Endocrine/Hematology History: Reports: Hx Diabetes - METFORMIN Cardiovascular History: Reports: Hx Hypercholesterolemia Denies: Hx Congestive Heart Failure History: Reports: Hx Chronic Renal Failure Sensory History: Reports: Hx Contacts or Glasses - READING Denies: Hx Cataracts, Hx Hearing Aid Opthamlomology History: Reports: Hx Contacts or Glasses - READING Denies: Hx Cataracts Psychiatric History: Reports: Hx Anxiety - NO TREATED - Surgical History Surgery Procedure, Year, and Place: WISDOM TEETH REMOVAL 2010. BASAL SKIN CA REMOVAL 10 YRS AGO Hx Anesthesia Reactions: No Infectious Disease History: No Infectious Disease History: Denies: Traveled Outside the [place] in Last 30 Days - Family History Known Family History: Negative: Cardiac Disease, Hypertension, Diabetes - Social History Alcohol Use: None Hx Substance Use: No Substance Use Type: Reports: None Hx Tobacco Use: No Smoking Status (MU): Never Smoked Tobacco Review of Systems Negative: Fever Positive: Shortness Of Breath Positive: Edema All Other Systems Reviewed And Are Negative: Yes Physical Exam - Summary Physical Exam Summary: VITAL SIGNS: Reviewed. GENERAL: Patient is a well-developed and nourished male who is lying comfortable in the stretcher. Patient is not in any acute respiratory distress. HEAD AND FACE: No signs of trauma. No ecchymosis, hematomas or skull depressions. No sinus tenderness. EYES: PERRLA, EOMI x 2, No injected conjunctiva, no nystagmus. EARS: Hearing grossly intact. Ear canals and tympanic membranes are within normal limits. MOUTH: Oropharynx within normal limits. NECK: Supple, trachea is midline, no adenopathy, no JVD, no carotid bruit, no c- spine tenderness, neck with full ROM. CHEST: Symmetric, no tenderness at palpation LUNGS: decreased breath sounds.. CVS: Regular rate and rhythm, S1 and S2 present, no murmurs or gallops appreciated. ABDOMEN: Soft, edema in Lower ABD. EXTREMITIES: FROM in all major joints. Edema in bilateral LEs and UEs NEURO: Alert and oriented x 3. No acute neurological deficits. Speech is normal and follows commands. SKIN: Dry and warm Triage Information Reviewed: Yes Vital Signs On Initial Exam: Initial Vitals Temp Pulse Resp BP Pulse Ox 98.2 F 149 16 135/116 96 05/13/18 15:03 05/13/18 15:03 05/13/18 15:03 05/13/18 15:03 05/13/18 15:03 Vital Signs Reviewed: Yes Diagnostics - Vital Signs Vital Signs Temp Pulse Resp BP Pulse Ox 05/13/18 15:22 97 05/13/18 15:16 84 131/78 96 05/13/18 15:03 98.2 F 149 16 135/116 96 - Laboratory Result Diagrams: 05/14/18 06:41 05/14/18 06:08 Lab Statement: Any lab studies that have been ordered have been reviewed, and results considered in the medical decision making process. - Radiology CXR Radiology Interpretation Completed By: Radiologist Summary of Radiographic Findings: CARDIOMEGALY. INTERSTITIAL EDEMA CONSISTENT WITH CHF. Dr Daly has reviewed this report. - Ultrasound No standard instances Ultrasound Interpretation Completed By: Radiologist Summary of Ultrasound Findings: US Doppler reveals, per radiology, : Limited evaluation of the mid to proximal left renal vein due to body habitus. and position of the kidneys. The right renal vein appears patent. Dr Daly has reviewed this report. - EKG 1630 Cardiac Rate: NL EKG Rhythm: Sinus Rhythm - at 72 bpm Summary of EKG Findings: No st elevations Complex Multi-Symp Course/Dx Assessment/Plan: Blood work without any significant abnormality except for slight anemia, BUN is 49, creatinine is 3.04, glucose is 117, calcium 7.3, albumin is 1.8. In the ED course the patient has no complaints except for at the and swelling of the upper extremities, abdomen and lower extremities. I discussed case with Dr. Sandhu from nephrology and he recommends for the patient to be started and an albumin. He also recommends for the patient to be admitted to the hospital services. At this point I discussed case with Dr. Delatorre from the hospital services was accepted the patient for admission. - Diagnoses Provider Diagnoses: Anasarca, Hypoalbuminemia, Nephrotic syndrome - Physician Notifications Discussed Care Of Patient With: Don Delatorre Time Discussed With Above Provider: 15:55 Instructed by Provider To: Admit As Inpatient - Critical Care Time Critical Care Time: 30-74 min Discharge - Sign-Out/Discharge Documenting (check all that apply): Patient Departure - admitted All imaging exams completed and their final reports reviewed: Yes Patient Received Moderate/Deep Sedation with Procedure: No - Discharge Plan Condition: Fair Disposition: ADMITTED TO [facility] - Billing Disposition and Condition Condition: FAIR Disposition: Admitted to [facility] - Attestation Statements Document Initiated by Scribe: Yes Documenting Scribe: Brayan Cardenas Provider For Whom Scribe is Documenting (Include Credential): Addison Daly MD Scribe Attestation: I, Bryaan Cardenas , scribed for Addison Daly MD on 05/14/18 at 2055. Scribe Documentation Reviewed: Yes Provider Attestation: The documentation as recorded by the scribeBrayan accurately reflects the service I personally performed and the decisions made by me, Addison Daly MD Status of Scribe Document: Viewed
[2018-05-13 15:50] LABS: ABS Basophils 0 10^3/ul (0-0.2); ABS Eosinophils 0.3 10^3/ul (0-0.6); ABS Lymphocytes 1.1 10^3/ul (1.0-4.8); ABS Monocytes 0.7 10^3/ul (0-0.8); ABS Neutrophils 5.4 10^3/ul (1.5-7.7); ABS Nucleated RBC 0 10^3/ul; Eosinophil % 3.7 %; Hematocrit 38 % (42-52); Hemoglobin 12.6 g/dl (14.0-18.0); Lymphocyte % 14.2 %; Mean Corpuscular HGB Conc 33 g/dl (31-36); Mean Corpuscular Hemoglobin 27 pg (27-31); Mean Corpuscular Volume 81 fL (80-94); Nucleated Red Blood Cells % 0; Platelet Count 304 10^3/ul (150-450); Red Blood Count 4.72 10^6/ul (4.00-5.40); Red Cell Distribution Width 18 % (10.5-15); White Blood Count 7.5 10^3/ul (3.5-10.8)
[2018-05-13] MEDS ORDERED: Acetaminophen TAB* 325 MG PO PRN (15:57)
[2018-05-13] MEDS ORDERED: Magnesium Hydroxide LIQ* 30 ML UDC PO PRN (15:57)
[2018-05-13] MEDS ORDERED: ALBUMIN HUMAN 25% IV ONE (16:00)
[2018-05-13] MEDS ORDERED: LORazepam INJ* 2 MG/ML 1 ML VIAL IV PUSH ONE (16:24)
[2018-05-13 16:29] LABS: Albumin 1.8 g/dL (3.2-5.2); Albumin/Globulin Ratio 0.7 (1-3); BUN/Creatinine Ratio 16.1 (8-20); Calcium 7.3 mg/dL (8.6-10.3); EGFR African American 24.6 (>60); EGFR Non-African American 20.3 (>60); Globulin 2.5 g/dL (2-4); Magnesium 2.3 mg/dL (1.9-2.7); Phosphorus 4.1 mg/dL (2.5-5.0); Total Bilirubin 0.2 mg/dL (0.2-1.0); Total Protein 4.3 g/dL (6.4-8.9)
[2018-05-13] MEDS ORDERED: Lidocaine 2% JELLY* 6 ML JELLY TOPICAL ONE (17:00)
--- NOTE | 2018-05-13 17:09 | HP ---
CC: Dr. Tam; Dr. Eusebio Em * ADMISSION HISTORY AND PHYSICAL: DATE OF ADMISSION: 05/13/18 PRIMARY CARE PROVIDER: Dr. Tam. SOUND RECORDIST: Dr. Eusebio Em. ATTENDING FOR THIS ADMISSION: Dr. Don Delatorre.* (DICTATED BY CAROL ANN KIRKLAND NP) CHIEF COMPLAINT: Shortness of breath and generalized edema. HISTORY OF PRESENT ILLNESS: This is a 72-year-old gentleman who has had a recent admission in April of this year, 04/11/18 to 04/13/18, with a rule out nephrotic versus nephritic syndrome. The patient was seen by Dr. Eusebio Em at that time. He does have significant proteinuria, 27 g over 24-hour period. He was initiated on outpatient therapy on an TIA inhibitor; however, the patient has not responded well to TAI inhibition and has continued to become edematous and continues to drop his protein. Patient came to the emergency department yesterday with complaints of weight gain and increasing edema, however, he was not admitted at that time. The patient presents to the ER again today after being sent in by Dr. Em, who wishes for the patient to be admitted for albumin infusion and renal biopsy. PAST MEDICAL HISTORY: Significant for: 1. Diabetes mellitus type 2. 2. History of anxiety. 3. History of BPH. 4. Hyperlipidemia. PAST SURGICAL HISTORY: Colectomy to the cecum in 2013. MEDICATIONS: At home include: 1. Atorvastatin 40 mg p.o. daily. 2. Atacand 16 mg p.o. b.i.d. 3. Clonazepam 0.5 mg p.o. daily as needed. 4. Vitamin B12 at 1000 mcg p.o. daily. 5. Diphenhydramine 25 mg p.o. at bedtime. 6. Lasix 80 mg p.o. b.i.d. 7. NPH insulin 2 units in the evening, 6 units in the morning. 8. Zofran 4 mg p.o. q.6 hours as needed. 9. Flomax 0.4 mg 1 tablet daily. FAMILY HISTORY: He has mother with lymphoma and father with coronary artery disease and of an ID at age 60. SOCIAL HISTORY: Patient does not use tobacco products. Does not use alcohol. Denies any illicit drug use. 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 Lives at home with his . REVIEW OF SYSTEMS: Patient is complaining of anxiety, some mild nausea, mild shortness of breath and complains of edema which is generalized. Where he is most uncomfortable: He describes the swelling in his scrotum and lower abdomen as the most uncomfortable. Further 10-point review of systems is negative. PHYSICAL EXAMINATION GENERAL: Patient is alert in general and in moderate distress. VITAL SIGNS: Currently, blood pressure 131/78, respiratory rate 16, O2 saturation 96% on room air, pulse of 84, temperature of 98.2. HEENT: Patient is atraumatic, normocephalic. PERRLA with nonicteric sclerae. Oral mucosa is moist. Tongue is midline. NECK: Supple, nontender. No JVD noted. No carotid bruits auscultated. LUNGS: Clear at the apices with no wheezing noted. He is diminished at the bases with some fine rales, but no rhonchi. CARDIOVASCULAR: S1, S2 present. No murmurs, gallops, or rubs noted. Rate and rhythm are regular. ABDOMEN: Large, protuberant. Significant amount of edema. MUSCULOSKELETAL: There is no clubbing and no cyanosis. He has generalized edema of the lower extremities and also of the upper extremities extending up through the abdomen with the patient's report of this anasarca as increased over the last 24 hours. NEUROLOGIC: He is grossly intact with no focal deficits. SKIN: Warm, dry, and intact. PSYCHIATRIC: He is obviously anxious, sometimes tearful, but otherwise appropriate. DIAGNOSTIC STUDIES/LAB DATA: Laboratories are currently pending. However, labs from yesterday showed WBC 6.7, RBC is 4.95, hemoglobin 13.2, hematocrit 40 , platelets 303. Sodium was 140, potassium 4.2, chloride 112, CO2 of 23, BUN 51 , creatinine 3.02, GFR 20.5, hemoglobin A1c 9.1, calcium 7.8, phosphorus 4.8, magnesium 2.4, bilirubin 0.20. Uric acid 6.3. AST 31, ALT 22, alk phos 91. Total creatine kinase 320. Troponin was negative at 0.01. BNP yesterday was 22. We are pending BNP for today. Albumin was 1.8, protein 4.5, and albumin- globulin ratio is 0.7. Imaging: Chest x-ray in the ED, pending official read, but currently looks like he has some vascular congestion and possibility of pleural effusion in the right lower lobe, moderate in size. IMPRESSION: This 72-year-old male patient with a known recent history of acute renal failure and anasarca secondary to nephrotic syndrome versus nephritic syndrome versus diabetic nephropathy. PLAN: Patient will be admitted to Inpatient: DIAGNOSES: 1. Generalized anasarca secondary to nephrotic syndrome. We have already been contacted by Dr. Em of nephrology. Per Dr. Em's recommendations, we will be ordering a 75 g loading dose of albumin and then 3 g per hour drip. Patient will be placed on Lasix 80 mg IV q.8 hours. We will do strict Is and Os and daily weights and monitor for diuresis. Patient will also have renal ultrasound to evaluate the veins and look for any abnormalities there. He has already been planned for a renal biopsy with Interventional Radiology on Thursday. We will continue his TAI. 2. For his insulin-dependent diabetes mellitus, the patient was taking glargine 15; however, was just started on lispro as well. At this point, we will put the patient on sliding scale, do his sugars a.c. and at bedtime and place him on a consistent carbohydrate diet. 3. For his history of benign prostatic hyperplasia, he is on Flomax, this will be continued. 4. For his hyperlipidemia, he will be maintained on his statin. 5. For his history of anxiety, the patient per his 's report states that he responds well to clonazepam however, given the renal function today, will trial ativan instead. 6. For his history of insomnia, will order melatonin as needed. FEN: the patient does not need IV fluids, he can have consistent carbohydrate diet DVT prophylaxis with heparin subcu. CODE STATUS: The patient is a full code. His healthcare proxy is his , who is currently at the bedside. The rest of the patient's course will be determined by further diagnostics, laboratories, and any other input from other providers as warranted during this admission. We will continue to monitor the patient closely and appreciate any input from other specialists during this admission. This plan of care has been discussed with Dr. Don Delatorre, the attending on this case and he is in agreement with the plan. TIME SPENT: 60 minutes. CAROL ANN KIRKLAND, FLIGHT RADIO OPERATOR [id number]/[facility] #: [id number] [facility]ALTH SYSTEMKalpesh
[2018-05-13] MEDS ORDERED: Albumin Human 25%* 25 GM/100 ML BTL IV SCH (17:40)
[2018-05-13] MEDS: Furosemide IV* 10 MG/ML 10 ML VIAL (100 MG) IV SCH (17:58)
[2018-05-13] MEDS: LORazepam INJ* 2 MG/ML 1 ML VIAL IV PUSH PRN (18:25)
[2018-05-13] MEDS ORDERED: clonazePAM TAB(*) 0.5 MG PO SCH (21:00)
[2018-05-13] MEDS: Docusate CAP* 100 MG PO SCH (21:55)
[2018-05-13] MEDS: Heparin VIAL(*) 5000 UNITS/ML VIAL (FIVE THOUSAND) SUBCUT SCH (21:55)
[2018-05-14] MEDS: Furosemide IV* 10 MG/ML 10 ML VIAL (100 MG) IV SCH ×3 (01:02→17:54)
[2018-05-14 01:53] LABS: Urine Appearance Cloudy; Urine Bacteria Absent (Absent); Urine Bilirubin Negative (Negative); Urine Blood 1+ (Negative); Urine Color Yellow; Urine Glucose 2+(150 mg/dL) (Negative); Urine Granular Casts Present (Absent); Urine Ketones Negative (Negative); Urine Nitrite Negative (Negative); Urine Protein 3+(>=500 mg/dL) (Negative); Urine Red Blood Cell 3+(>10/hpf) (Absent); Urine Specific Gravity 1.016 (1.010-1.030); Urine Urobilinogen Negative (Negative); Urine White Blood Cell 3+(>20/hpf) (Absent)
[2018-05-14] MEDS: Heparin VIAL(*) 5000 UNITS/ML VIAL (FIVE THOUSAND) SUBCUT SCH ×3 (05:41→21:02)
[2018-05-14 06:42] LABS: Albumin 1.9 g/dL (3.2-5.2); Calcium 7.4 mg/dL (8.6-10.3); Potassium 4.2 mmol/L (3.5-5.0); Total Bilirubin 0.4 mg/dL (0.2-1.0)
[2018-05-14 06:48] LABS: Albumin/Globulin Ratio 1.3 (1-3); EGFR Non-African American 21.5 (>60); Globulin 1.5 g/dL (2-4); Total Protein 3.4 g/dL (6.4-8.9)
[2018-05-14 07:08] LABS: ABS Basophils 0 10^3/ul (0-0.2); ABS Eosinophils 0.3 10^3/ul (0-0.6); ABS Monocytes 0.6 10^3/ul (0-0.8); ABS Neutrophils 3.9 10^3/ul (1.5-7.7); ABS Nucleated RBC 0 10^3/ul; Eosinophil % 5.6 %; Hematocrit 34 % (42-52); Hemoglobin 11.2 g/dl (14.0-18.0); Mean Corpuscular HGB Conc 33 g/dl (31-36); Mean Corpuscular Hemoglobin 27 pg (27-31); Mean Corpuscular Volume 82 fL (80-94); Mean Platelet Volume 8.4 fL (7.4-10.4); Nucleated Red Blood Cells % 0; Platelet Count 229 10^3/ul (150-450); Red Blood Count 4.19 10^6/ul (4.00-5.40); Red Cell Distribution Width 18 % (10.5-15); White Blood Count 5.9 10^3/ul (3.5-10.8)
[2018-05-14] MEDS: Cyanocobalamin TAB* 500 MCG PO SCH (09:07)
[2018-05-14] MEDS: Atorvastatin* 40 MG TAB PO SCH (09:07)
[2018-05-14] MEDS: Docusate CAP* 100 MG PO SCH ×2 (09:07→21:00)
[2018-05-14] MEDS: Tamsulosin CAP* 0.4 MG PO SCH (09:08)
[2018-05-14] MEDS ORDERED: Dextrose 50% Syringe 50 ML* 25 GM/50 ML SYRINGE IV PUSH PRN (11:48)
[2018-05-14] MEDS: Insulin LISPRO* 1 UNITS UNIT SUBCUT SCH ×2 (12:32→20:59)
[2018-05-14] MEDS ORDERED: Sodium Phosphate ADULT ENEMA* 118 ml bottle PR PRN (12:38)
[2018-05-14] MEDS ORDERED: Albumin Human 25%* 25 GM/100 ML BTL IV ONE (15:00)
--- NOTE | 2018-05-14 15:06 | PN ---
Subjective Date of Service: 05/14/18 Interval History: C/O difficulty walking due to SOB, does not get SOB when he uses his stationary bicycle at home. Objective Active Medications: Acetaminophen (Tylenol Tab*) 650 mg PO Q4H PRN PRN Reason: FEVER/PAIN Atorvastatin Calcium (Lipitor*) 40 mg PO DAILY [facility] Last Admin: 05/14/18 09:07 Dose: 40 mg Cyanocobalamin (Vitamin B12 Tab*) 1,000 mcg PO DAILY [facility] Last Admin: 05/14/18 09:07 Dose: 1,000 mcg Dextrose (D50w Syringe 50 Ml*) 12.5 gm IV PUSH .FOR FS < 60 - SS PRN PRN Reason: FS < 60 Docusate Sodium (Colace Cap*) 100 mg PO BID [facility] Last Admin: 05/14/18 09:07 Dose: Not Given Furosemide (Lasix Iv*) 80 mg IV Q8H [facility] Last Admin: 05/14/18 09:06 Dose: 80 mg Heparin Sodium (Porcine) (Heparin Vial(*)) 5,000 units SUBCUT Q8HR [facility] Last Admin: 05/14/18 05:41 Dose: 5,000 units Albumin Human (Albumin Human 25%*) 25 gm in 100 mls @ 176.471 mls/hr IV ONCE ONE Stop: 05/14/18 15:33 Albumin Human (Albumin Human 25%*) 25 gm in 100 mls @ 12 mls/hr IV Q8H [facility] Insulin Human Lispro (Humalog*) 0 units SUBCUT Q8H [facility]; Protocol Last Admin: 05/14/18 12:32 Dose: Not Given Lorazepam (Ativan Inj*) 1 mg IV PUSH Q6H PRN PRN Reason: ANXIETY Last Admin: 05/13/18 18:25 Dose: 1 mg Magnesium Hydroxide (Milk Of Magnesia Liq*) 30 ml PO Q4H PRN PRN Reason: CONSTIPATION Ondansetron HCl (Zofran Inj*) 4 mg IV Q4H PRN PRN Reason: NAUSEA/VOMITING Sodium Biphosphate/Sodium Phosphate (Fleet Enema*) 1 bottle IN DAILY PRN PRN Reason: CONSTIPATION Tamsulosin HCl (Flomax Cap*) 0.4 mg PO DAILY [facility] Last Admin: 05/14/18 09:08 Dose: 0.4 mg Vital Signs - 8 hr 05/14/18 05/14/18 05/14/18 07:16 08:00 11:20 Temperature 97.5 F 98.3 F Pulse Rate 73 61 Respiratory 16 18 20 Rate Blood Pressure 135/64 123/66 (mmHg) O2 Sat by Pulse 96 99 Oximetry Oxygen Devices in Use Now: None Appearance: Alert, supine in bed. Anxious. Eyes: No Scleral Icterus Extremities: No Clubbing, Cyanosis, - - total body 2+ edema, including scrotal edema. Skin: No Rash or Ulcers, No Nodules or Sclerosis Neurological: Alert and Oriented x 3, NL Sensation Result Diagrams: 05/14/18 06:41 05/14/18 06:08 Assess/Plan/Problems-Billing Assessment: - Patient Problems (1) Nephrotic syndrome Current Visit: No Status: Acute Code(s): N04.9 - NEPHROTIC SYNDROME WITH UNSPECIFIED MORPHOLOGIC CHANGES SNOMED Code(s): 77385089 Comment: Discussed with Dr. Em 05/14/18. Reported protein was 27k on 24 hr protein collection Furosemide 80 mg IV q 8 hr. Would check daily albumin and BMP. When albumin > 2.5 can stop IV albumin but continue IV furosemide. Creat 2.89 on 05/14/18. (2) Diabetes Current Visit: Yes Status: Acute Code(s): E11.9 - TYPE 2 DIABETES MELLITUS WITHOUT COMPLICATIONS SNOMED Code(s): 16490617 Comment: Uses small amount on N insulin at home, will give Lispro by SS tid. In first 24 hrs in hospital the highest glucose level was 135.
[2018-05-14] MEDS: Albumin Human 25%* 25 GM/100 ML IV SCH (16:51)
[2018-05-14] MEDS: Ondansetron INJ* 2 MG/ML VIAL IV PRN (22:43)
[2018-05-14] MEDS ORDERED: hydrALAZINE IV* 20 MG/ML VIAL IV SLOW PU ONE (23:30)
[2018-05-15] MEDS: Albumin Human 25%* 25 GM/100 ML IV SCH ×3 (01:27→19:32)
[2018-05-15] MEDS: Furosemide IV* 10 MG/ML 10 ML VIAL (100 MG) IV SCH ×3 (01:27→19:14)
[2018-05-15] MEDS: LORazepam INJ* 2 MG/ML 1 ML VIAL IV PUSH PRN (01:53)
[2018-05-15] MEDS: Heparin VIAL(*) 5000 UNITS/ML VIAL (FIVE THOUSAND) SUBCUT SCH ×3 (05:30→21:38)
[2018-05-15 05:50] LABS: ABS Basophils 0.1 10^3/ul (0-0.2); ABS Eosinophils 0.3 10^3/ul (0-0.6); ABS Lymphocytes 1.1 10^3/ul (1.0-4.8); ABS Monocytes 0.6 10^3/ul (0-0.8); ABS Neutrophils 4.5 10^3/ul (1.5-7.7); ABS Nucleated RBC 0 10^3/ul; Eosinophil % 4.3 %; Hematocrit 33 % (42-52); Hemoglobin 11.1 g/dl (14.0-18.0); Lymphocyte % 17.1 %; Mean Corpuscular HGB Conc 34 g/dl (31-36); Mean Corpuscular Hemoglobin 27 pg (27-31); Mean Corpuscular Volume 81 fL (80-94); Mean Platelet Volume 8.3 fL (7.4-10.4); Nucleated Red Blood Cells % 0; Platelet Count 250 10^3/ul (150-450); Red Blood Count 4.08 10^6/ul (4.00-5.40); Red Cell Distribution Width 17 % (10.5-15); White Blood Count 6.6 10^3/ul (3.5-10.8)
[2018-05-15 06:01] LABS: Albumin 2.2 g/dL (3.2-5.2); Albumin/Globulin Ratio 1.2 (1-3); BUN/Creatinine Ratio 16.5 (8-20); Calcium 7.4 mg/dL (8.6-10.3); EGFR African American 26.5 (>60); EGFR Non-African American 21.9 (>60); Globulin 1.8 g/dL (2-4); Potassium 3.7 mmol/L (3.5-5.0); Total Bilirubin 0.4 mg/dL (0.2-1.0)
[2018-05-15] MEDS: Tamsulosin CAP* 0.4 MG PO SCH (10:00)
[2018-05-15] MEDS: Docusate CAP* 100 MG PO SCH ×2 (10:00→21:38)
[2018-05-15] MEDS: Cyanocobalamin TAB* 500 MCG PO SCH (10:00)
[2018-05-15] MEDS: Insulin LISPRO* 1 UNITS UNIT SUBCUT SCH ×4 (10:01→21:38)
[2018-05-15] MEDS: Atorvastatin* 40 MG TAB PO SCH (10:01)
--- NOTE | 2018-05-15 15:22 | PN ---
Subjective Date of Service: 05/15/18 Interval History: Pt seen and examined. Meds and labs reviewed. CC: N/A ROS: Denied MANN/dizziness, F/C, N/V, CP, SOB, increased cough, sputum production , abd pain, diarrhea, constipation, dysuria, myalgias, arthralgias, throat pain , and new skin lesions. The rest of the 14 point ROS are unremarkable. PHYSICAL EXAM: GEN APPEARANCE: Awake, not in acute distress HEENT: NC/AT, PERRLA, moist oral mucosa, (-) throat erythema NECK: Soft, supple, (-) cervical LAD, (-)JVD HEART: S1S2 WNL, RRR, No MRG CHEST: CTA, BL, GAE, No W/R/R ABD: Soft, ND/NT, NABS 4x Q EXT: No C/C/E SKIN: Warm to touch PSYCH: No active psychosis, hallucinations, depression, SI/HI Objective Active Medications: Acetaminophen (Tylenol Tab*) 650 mg PO Q4H PRN PRN Reason: FEVER/PAIN Atorvastatin Calcium (Lipitor*) 40 mg PO DAILY [facility] Last Admin: 05/15/18 10:01 Dose: 40 mg Cyanocobalamin (Vitamin B12 Tab*) 1,000 mcg PO DAILY [facility] Last Admin: 05/15/18 10:00 Dose: 1,000 mcg Dextrose (D50w Syringe 50 Ml*) 12.5 gm IV PUSH .FOR FS < 60 - SS PRN PRN Reason: FS < 60 Docusate Sodium (Colace Cap*) 100 mg PO BID [facility] Last Admin: 05/15/18 10:00 Dose: 100 mg Furosemide (Lasix Iv*) 80 mg IV Q8H [facility] Last Admin: 05/15/18 10:01 Dose: 80 mg Heparin Sodium (Porcine) (Heparin Vial(*)) 5,000 units SUBCUT Q8HR [facility] Last Admin: 05/15/18 05:30 Dose: 5,000 units Albumin Human (Albumin Human 25%*) 25 gm in 100 mls @ 12 mls/hr IV Q8H [facility] Last Admin: 05/15/18 12:29 Dose: 12 mls/hr Insulin Human Lispro (Humalog*) 0 units SUBCUT [facility]; Protocol Last Admin: 05/15/18 12:41 Dose: Not Given Lorazepam (Ativan Inj*) 1 mg IV PUSH Q6H PRN PRN Reason: ANXIETY Last Admin: 05/15/18 01:53 Dose: 1 mg Magnesium Hydroxide (Milk Of Magntammy Liq*) 30 ml PO Q4H PRN PRN Reason: CONSTIPATION Ondansetron HCl (Zofran Inj*) 4 mg IV Q4H PRN PRN Reason: NAUSEA/VOMITING Last Admin: 05/14/18 22:43 Dose: 4 mg Sodium Biphosphate/Sodium Phosphate (Fleet Enema*) 1 bottle [place] DAILY PRN PRN Reason: CONSTIPATION Last Admin: 05/14/18 15:15 Dose: 1 bottle Tamsulosin HCl (Flomax Cap*) 0.4 mg PO DAILY [facility] Last Admin: 05/15/18 10:00 Dose: 0.4 mg Vital Signs - 8 hr 05/15/18 05/15/18 05/15/18 07:49 07:51 11:23 Temperature 97.7 F 97.9 F Pulse Rate 73 64 Respiratory 22 22 16 Rate Blood Pressure 158/80 147/78 (mmHg) O2 Sat by Pulse 95 95 Oximetry 05/15/18 05/15/18 12:27 12:54 Temperature 98.2 F 97.8 F Pulse Rate 64 65 Respiratory 20 22 Rate Blood Pressure 142/79 145/86 (mmHg) O2 Sat by Pulse 96 94 Oximetry Oxygen Devices in Use Now: None Result Diagrams: 05/15/18 05:15 05/15/18 05:15 Microbiology and Other Data: Microbiology 05/14/18 01:05 Urine Culture - Final Urine No Growth (<1,000 CFU/mL) Assess/Plan/Problems-Billing Assessment: - Patient Problems (1) Nephrotic syndrome Current Visit: No Status: Acute Code(s): N04.9 - NEPHROTIC SYNDROME WITH UNSPECIFIED MORPHOLOGIC CHANGES SNOMED Code(s): 32223052 Comment: -Continue IV Lasix and IV Albumin as ordered -For planned renal biopsy on Thursday -Possibly from DM but bx planned to R/O other causes (2) Diabetes Current Visit: Yes Status: Acute Code(s): E11.9 - TYPE 2 DIABETES MELLITUS WITHOUT COMPLICATIONS SNOMED Code(s): 48046636 Comment: -Well-controlled FS -Will check HBa1c in AM -Continue ISS (3) DVT prophylaxis Current Visit: No Status: Acute Code(s): XNU8810 - SNOMED Code(s): 699740889 Comment: -Continue Heparin SQ Status and Disposition: -As above -Awaiting planned renal bx on Thursday
[2018-05-16] MEDS: Furosemide IV* 10 MG/ML 10 ML VIAL (100 MG) IV SCH ×4 (02:30→17:28)
[2018-05-16] MEDS: Insulin LISPRO* 1 UNITS UNIT SUBCUT SCH ×5 (04:58→20:43)
[2018-05-16] MEDS: Albumin Human 25%* 25 GM/100 ML IV SCH ×4 (05:24→22:05)
[2018-05-16] MEDS: Heparin VIAL(*) 5000 UNITS/ML VIAL (FIVE THOUSAND) SUBCUT SCH ×3 (06:07→20:43)
[2018-05-16 06:18] LABS: ABS Basophils 0 10^3/ul (0-0.2); ABS Eosinophils 0.4 10^3/ul (0-0.6); ABS Lymphocytes 1.1 10^3/ul (1.0-4.8); ABS Monocytes 0.7 10^3/ul (0-0.8); ABS Neutrophils 4.5 10^3/ul (1.5-7.7); ABS Nucleated RBC 0 10^3/ul; Eosinophil % 5.7 %; Hematocrit 36 % (42-52); Hemoglobin 11.9 g/dl (14.0-18.0); Lymphocyte % 16.6 %; Mean Corpuscular HGB Conc 34 g/dl (31-36); Mean Corpuscular Hemoglobin 27 pg (27-31); Mean Corpuscular Volume 81 fL (80-94); Mean Platelet Volume 8.2 fL (7.4-10.4); Nucleated Red Blood Cells % 0; Platelet Count 274 10^3/ul (150-450); Red Cell Distribution Width 18 % (10.5-15); White Blood Count 6.7 10^3/ul (3.5-10.8)
[2018-05-16 06:36] LABS: BUN/Creatinine Ratio 15.4 (8-20); Calcium 7.8 mg/dL (8.6-10.3); EGFR African American 27.1 (>60); EGFR Non-African American 22.4 (>60); Globulin 2.1 g/dL (2-4); Phosphorus 3.3 mg/dL (2.5-5.0); Potassium 3.8 mmol/L (3.5-5.0); Total Bilirubin 0.3 mg/dL (0.2-1.0); Total Protein 4.1 g/dL (6.4-8.9)
[2018-05-16] MEDS: Docusate CAP* 100 MG PO SCH (08:39)
[2018-05-16] MEDS: Tamsulosin CAP* 0.4 MG PO SCH (08:40)
[2018-05-16] MEDS: Ondansetron INJ* 2 MG/ML VIAL IV PRN ×2 (08:40→13:05)
[2018-05-16] MEDS: Cyanocobalamin TAB* 500 MCG PO SCH (08:40)
[2018-05-16] MEDS: Atorvastatin* 40 MG TAB PO SCH (09:18)
[2018-05-16] MEDS: Polyethylene Glycol 3350* 17 GM PACKET PO SCH (12:46)
[2018-05-16] MEDS: Terazosin CAP* 1 MG PO SCH (12:47)
[2018-05-16] MEDS: LORazepam INJ* 2 MG/ML 1 ML VIAL IV PUSH PRN (13:04)
--- NOTE | 2018-05-16 15:58 | PN ---
Subjective Date of Service: 05/16/18 Interval History: Pt seen and examined. Meds and labs reviewed. CC: Constipation; no BM in 3 days ROS: Denied MANN/dizziness, F/C, N/V, CP, SOB, increased cough, sputum production , abd pain, diarrhea, dysuria, myalgias, arthralgias, throat pain, and new skin lesions. The rest of the 14 point ROS are unremarkable. PHYSICAL EXAM: GEN APPEARANCE: Awake, not in acute distress HEENT: NC/AT, PERRLA, moist oral mucosa, (-) throat erythema NECK: Soft, supple, (-) cervical LAD, (-)JVD HEART: S1S2 WNL, RRR, No MRG CHEST: CTA, BL, GAE, No W/R/R ABD: Soft, ND/NT, NABS 4x Q EXT: No C/C/(+)2 BL LE/UE edema SKIN: Warm to touch PSYCH: No active psychosis, hallucinations, depression, SI/HI Objective Active Medications: Acetaminophen (Tylenol Tab*) 650 mg PO Q4H PRN PRN Reason: FEVER/PAIN Atorvastatin Calcium (Lipitor*) 40 mg PO DAILY [facility] Last Admin: 05/16/18 09:18 Dose: 40 mg Cyanocobalamin (Vitamin B12 Tab*) 1,000 mcg PO DAILY [facility] Last Admin: 05/16/18 08:40 Dose: 1,000 mcg Dextrose (D50w Syringe 50 Ml*) 12.5 gm IV PUSH .FOR FS < 60 - SS PRN PRN Reason: FS < 60 Docusate Sodium (Colace Cap*) 100 mg PO DAILY [facility] Furosemide (Lasix Iv*) 80 mg IV Q8H [facility] Last Admin: 05/16/18 08:39 Dose: 80 mg Heparin Sodium (Porcine) (Heparin Vial(*)) 5,000 units SUBCUT Q12H [facility] Last Admin: 05/16/18 10:50 Dose: 5,000 units Albumin Human (Albumin Human 25%*) 25 gm in 100 mls @ 12 mls/hr IV 0500,1300, 2100 [facility] Last Admin: 05/16/18 15:19 Dose: 12 mls/hr Insulin Human Lispro (Humalog*) 0 units SUBCUT ACHS [facility]; Protocol Last Admin: 05/16/18 12:46 Dose: 2 unit Lorazepam (Ativan Inj*) 1 mg IV PUSH Q6H PRN PRN Reason: ANXIETY Last Admin: 05/16/18 13:04 Dose: 1 mg Magnesium Hydroxide (Milk Of Magnesia Liq*) 30 ml PO Q4H PRN PRN Reason: CONSTIPATION Ondansetron HCl (Zofran Inj*) 4 mg IV Q4H PRN PRN Reason: NAUSEA/VOMITING Last Admin: 05/16/18 13:05 Dose: 4 mg Polyethylene Glycol/Electrolytes (Miralax*) 17 gm PO DAILY [facility] Stop: 05/18/18 11:59 Last Admin: 05/16/18 12:46 Dose: 17 gm Senna (Senokot Tab*) 1 tab PO DAILY [facility] Sodium Biphosphate/Sodium Phosphate (Fleet Enema*) 1 bottle [place] DAILY PRN PRN Reason: CONSTIPATION Last Admin: 05/14/18 15:15 Dose: 1 bottle Tamsulosin HCl (Flomax Cap*) 0.4 mg PO DAILY [facility] Last Admin: 05/16/18 08:40 Dose: 0.4 mg Terazosin HCl (Hytrin Cap*) 2 mg PO DAILY [facility] Last Admin: 05/16/18 12:47 Dose: 2 mg Vital Signs - 8 hr 05/16/18 05/16/18 05/16/18 08:00 11:26 13:04 Temperature 97.4 F Pulse Rate 81 Respiratory 19 20 17 Rate Blood Pressure 136/74 (mmHg) O2 Sat by Pulse 93 Oximetry 05/16/18 05/16/18 14:40 15:07 Temperature 98.2 F Pulse Rate 81 Respiratory 19 17 Rate Blood Pressure 127/73 (mmHg) O2 Sat by Pulse 93 Oximetry Oxygen Devices in Use Now: None Result Diagrams: 05/16/18 06:07 05/16/18 06:07 Microbiology and Other Data: Microbiology 05/14/18 01:05 Urine Culture - Final Urine No Growth (<1,000 CFU/mL) Assess/Plan/Problems-Billing Assessment: - Patient Problems (1) Nephrotic syndrome Current Visit: No Status: Acute Code(s): N04.9 - NEPHROTIC SYNDROME WITH UNSPECIFIED MORPHOLOGIC CHANGES SNOMED Code(s): 61775637 Comment: -Continue IV Lasix and IV Albumin as ordered -For planned renal biopsy on Thursday -Possibly from DM but bx planned to R/O other causes (2) HTN (hypertension) Current Visit: Yes Status: Acute Code(s): I10 - ESSENTIAL (PRIMARY) HYPERTENSION SNOMED Code(s): 24800968 Comment: -Slightly uncontrolled -Added Hytrin to his regimen as ordered (3) Constipation Current Visit: Yes Status: Acute Code(s): K59.00 - CONSTIPATION, UNSPECIFIED SNOMED Code(s): 36577540 Comment: -Continue Colace -Will add Senna -Will give Miralax for 2 days and Soap suds enema x1 (4) Diabetes Current Visit: Yes Status: Acute Code(s): E11.9 - TYPE 2 DIABETES MELLITUS WITHOUT COMPLICATIONS SNOMED Code(s): 65751529 Comment: -Well-controlled FS; will decrease checks to qAC -Awaiting HBa1c result -Continue ISS (5) DVT prophylaxis Current Visit: No Status: Acute Code(s): JBP0636 - SNOMED Code(s): 301797907 Comment: -Continue Heparin SQ Status and Disposition: -As above -Awaiting planned renal bx on Thursday
[2018-05-17] MEDS: Furosemide IV* 10 MG/ML 10 ML VIAL (100 MG) IV SCH ×3 (02:58→19:50)
[2018-05-17] MEDS: Albumin Human 25%* 25 GM/100 ML IV SCH ×3 (06:05→23:31)
[2018-05-17 06:14] LABS: Hematocrit 34 % (42-52); Hemoglobin 11.4 g/dl (14.0-18.0); Mean Corpuscular HGB Conc 33 g/dl (31-36); Mean Corpuscular Hemoglobin 27 pg (27-31); Mean Corpuscular Volume 81 fL (80-94); Mean Platelet Volume 8.5 fL (7.4-10.4); Platelet Count 233 10^3/ul (150-450); Red Blood Count 4.22 10^6/ul (4.00-5.40); Red Cell Distribution Width 17 % (10.5-15); White Blood Count 7.5 10^3/ul (3.5-10.8)
[2018-05-17 06:34] LABS: BUN/Creatinine Ratio 15.8 (8-20); Calcium 7.9 mg/dL (8.6-10.3); EGFR African American 27.8 (>60); Potassium 3.8 mmol/L (3.5-5.0)
[2018-05-17] MEDS ORDERED: Senna/Docusate (NF) TAB PO SCH (09:00)
[2018-05-17] MEDS: Polyethylene Glycol 3350* 17 GM PACKET PO SCH (09:19)
[2018-05-17] MEDS: Senna TAB PO SCH (09:21)
[2018-05-17] MEDS: Atorvastatin* 40 MG TAB PO SCH (09:21)
[2018-05-17] MEDS: Docusate CAP* 100 MG PO SCH (09:21)
[2018-05-17] MEDS: Cyanocobalamin TAB* 500 MCG PO SCH (09:21)
[2018-05-17] MEDS: Tamsulosin CAP* 0.4 MG PO SCH (09:21)
[2018-05-17] MEDS: Insulin LISPRO* 1 UNITS UNIT SUBCUT SCH ×4 (09:22→21:21)
[2018-05-17] MEDS: Heparin VIAL(*) 5000 UNITS/ML VIAL (FIVE THOUSAND) SUBCUT SCH ×2 (09:23→21:22)
[2018-05-17] MEDS: Terazosin CAP* 1 MG PO SCH (09:37)
--- NOTE | 2018-05-17 17:25 | PN ---
Subjective Date of Service: 05/17/18 Interval History: Pt seen and examined. Meds and labs reviewed. CC: N/A. Had bowel movement earlier in AM. ROS: Denied MANN/dizziness, F/C, N/V, CP, SOB, increased cough, sputum production , abd pain, diarrhea, constipation, dysuria, myalgias, arthralgias, throat pain , and new skin lesions. The rest of the 14 point ROS are unremarkable. PHYSICAL EXAM: GEN APPEARANCE: Awake, not in acute distress HEENT: NC/AT, PERRLA, moist oral mucosa, (-) throat erythema NECK: Soft, supple, (-) cervical LAD, (-)JVD HEART: S1S2 WNL, RRR, No MRG CHEST: CTA, BL, GAE, No W/R/R ABD: Soft, ND/NT, NABS 4x Q EXT: No C/C/(+)2 BL LE/UE edema SKIN: Warm to touch PSYCH: No active psychosis, hallucinations, depression, SI/HI Objective Active Medications: Acetaminophen (Tylenol Tab*) 650 mg PO Q4H PRN PRN Reason: FEVER/PAIN Atorvastatin Calcium (Lipitor*) 40 mg PO DAILY [facility] Last Admin: 05/17/18 09:21 Dose: 40 mg Cyanocobalamin (Vitamin B12 Tab*) 1,000 mcg PO DAILY [facility] Last Admin: 05/17/18 09:21 Dose: 1,000 mcg Dextrose (D50w Syringe 50 Ml*) 12.5 gm IV PUSH .FOR FS < 60 - SS PRN PRN Reason: FS < 60 Docusate Sodium (Colace Cap*) 100 mg PO DAILY [facility] Last Admin: 05/17/18 09:21 Dose: 100 mg Furosemide (Lasix Iv*) 80 mg IV Q8H [facility] Last Admin: 05/17/18 11:13 Dose: 80 mg Heparin Sodium (Porcine) (Heparin Vial(*)) 5,000 units SUBCUT Q12H [facility] Stop: 05/18/18 00:00 Last Admin: 05/17/18 09:23 Dose: 5,000 units Albumin Human (Albumin Human 25%*) 25 gm in 100 mls @ 12 mls/hr IV 0500,1300, 2100 [facility] Last Admin: 05/17/18 17:10 Dose: 12 mls/hr Insulin Human Lispro (Humalog*) 0 units SUBCUT ACHS [facility]; Protocol Last Admin: 05/17/18 17:13 Dose: Not Given Lorazepam (Ativan Inj*) 1 mg IV PUSH Q6H PRN PRN Reason: ANXIETY Last Admin: 05/16/18 13:04 Dose: 1 mg Magnesium Hydroxide (Milk Of Magnesia Liq*) 30 ml PO Q4H PRN PRN Reason: CONSTIPATION Ondansetron HCl (Zofran Inj*) 4 mg IV Q4H PRN PRN Reason: NAUSEA/VOMITING Last Admin: 05/16/18 13:05 Dose: 4 mg Polyethylene Glycol/Electrolytes (Miralax*) 17 gm PO DAILY [facility] Stop: 05/18/18 11:59 Last Admin: 05/17/18 09:19 Dose: 17 gm Senna (Senokot Tab*) 1 tab PO DAILY [facility] Last Admin: 05/17/18 09:21 Dose: 1 tab Sodium Biphosphate/Sodium Phosphate (Fleet Enema*) 1 bottle [place] DAILY PRN PRN Reason: CONSTIPATION Last Admin: 05/14/18 15:15 Dose: 1 bottle Tamsulosin HCl (Flomax Cap*) 0.4 mg PO DAILY [facility] Last Admin: 05/17/18 09:21 Dose: 0.4 mg Terazosin HCl (Hytrin Cap*) 2 mg PO DAILY [facility] Last Admin: 05/17/18 09:37 Dose: 2 mg Vital Signs - 8 hr 05/17/18 05/17/18 09:30 11:16 Temperature 97.5 F 97.7 F Pulse Rate 91 89 Respiratory 18 22 Rate Blood Pressure 145/91 136/80 (mmHg) O2 Sat by Pulse 94 95 Oximetry Oxygen Devices in Use Now: None Result Diagrams: 05/17/18 05:59 05/17/18 05:59 Microbiology and Other Data: Microbiology 05/14/18 01:05 Urine Culture - Final Urine No Growth (<1,000 CFU/mL) Assess/Plan/Problems-Billing Assessment: - Patient Problems (1) Nephrotic syndrome Current Visit: No Status: Acute Code(s): N04.9 - NEPHROTIC SYNDROME WITH UNSPECIFIED MORPHOLOGIC CHANGES SNOMED Code(s): 76932730 Comment: -Continue IV Lasix and IV Albumin as ordered -For planned renal biopsy tomorrow -Possibly from DM but bx planned to R/O other causes (2) HTN (hypertension) Current Visit: Yes Status: Acute Code(s): I10 - ESSENTIAL (PRIMARY) HYPERTENSION SNOMED Code(s): 89791743 Comment: -Improved control -Continue current regimen (3) Constipation Current Visit: Yes Status: Acute Code(s): K59.00 - CONSTIPATION, UNSPECIFIED SNOMED Code(s): 93332197 Comment: -Continue Colace/Senna (4) Diabetes Current Visit: Yes Status: Acute Code(s): E11.9 - TYPE 2 DIABETES MELLITUS WITHOUT COMPLICATIONS SNOMED Code(s): 52772022 Comment: -Well-controlled FS; will decrease checks to qAC - HBa1c (05/16/18) =7.6 -Continue ISS (5) DVT prophylaxis Current Visit: No Status: Acute Code(s): JNI9483 - SNOMED Code(s): 894332373 Comment: -Continue Heparin SQ Status and Disposition: -As above -Awaiting planned renal bx tomorrow by Dr. Cruz -Coags ordered -NPO after midnight, but may drink clears PRN and meds ordered -To hold Heparin SQ in AM
[2018-05-17] MEDS: Ondansetron INJ* 2 MG/ML VIAL IV PRN (21:22)
[2018-05-17] MEDS: LORazepam INJ* 2 MG/ML 1 ML VIAL IV PUSH PRN (21:22)
[2018-05-18] MEDS: Furosemide IV* 10 MG/ML 10 ML VIAL (100 MG) IV SCH ×3 (03:18→21:13)
[2018-05-18 05:33] LABS: ABS Basophils 0 10^3/ul (0-0.2); ABS Eosinophils 0.4 10^3/ul (0-0.6); ABS Monocytes 0.7 10^3/ul (0-0.8); ABS Neutrophils 4.9 10^3/ul (1.5-7.7); ABS Nucleated RBC 0 10^3/ul; Eosinophil % 5.8 %; Hematocrit 32 % (42-52); Hemoglobin 10.7 g/dl (14.0-18.0); Lymphocyte % 13.8 %; Mean Corpuscular HGB Conc 33 g/dl (31-36); Mean Corpuscular Hemoglobin 27 pg (27-31); Mean Corpuscular Volume 81 fL (80-94); Mean Platelet Volume 8.6 fL (7.4-10.4); Nucleated Red Blood Cells % 0; Platelet Count 239 10^3/ul (150-450); Red Blood Count 3.95 10^6/ul (4.00-5.40); Red Cell Distribution Width 18 % (10.5-15)
[2018-05-18 05:50] LABS: ALT 15 U/L (7-52); Albumin 2.1 g/dL (3.2-5.2); Albumin/Globulin Ratio 1.1 (1-3); Alkaline Phosphatase 74 U/L (34-104); BUN/Creatinine Ratio 14.2 (8-20); Blood Urea Nitrogen 40 mg/dL (6-24); CO2 Carbon Dioxide 24 mmol/L (22-32); Calcium 7.7 mg/dL (8.6-10.3); EGFR African American 26.9 (>60); EGFR Non-African American 22.2 (>60); Glucose 117 mg/dL (70-100); Magnesium 1.9 mg/dL (1.9-2.7); Phosphorus 3.5 mg/dL (2.5-5.0); Sodium 142 mmol/L (135-145); Total Protein 4.1 g/dL (6.4-8.9)
[2018-05-18 05:52] LABS: Activated Partial Thrombo Time 34.8 seconds (26.0-36.3)
[2018-05-18 05:59] LABS: Anion Gap 5 mmol/L (2-11); Chloride 113 mmol/L (101-111)
[2018-05-18 07:01] LABS: Potassium Redraw 3.9 mmol/L (3.5-5.0)
[2018-05-18] MEDS: Insulin LISPRO* 1 UNITS UNIT SUBCUT SCH ×4 (07:47→21:13)
[2018-05-18] MEDS: Atorvastatin* 40 MG TAB PO SCH (08:20)
[2018-05-18] MEDS: Terazosin CAP* 1 MG PO SCH (08:21)
[2018-05-18] MEDS: Docusate CAP* 100 MG PO SCH (08:21)
[2018-05-18] MEDS: Senna TAB PO SCH (08:21)
[2018-05-18] MEDS: Cyanocobalamin TAB* 500 MCG PO SCH (08:21)
[2018-05-18] MEDS: Tamsulosin CAP* 0.4 MG PO SCH (08:21)
[2018-05-18] MEDS: Polyethylene Glycol 3350* 17 GM PACKET PO SCH (08:21)
[2018-05-18] MEDS: Heparin VIAL(*) 5000 UNITS/ML VIAL (FIVE THOUSAND) SUBCUT SCH ×3 (11:24→21:13)
[2018-05-18 12:50] LABS: ABS Basophils 0 10^3/ul (0-0.2); ABS Eosinophils 0.4 10^3/ul (0-0.6); ABS Lymphocytes 0.9 10^3/ul (1.0-4.8); ABS Monocytes 0.6 10^3/ul (0-0.8); ABS Neutrophils 4.8 10^3/ul (1.5-7.7); ABS Nucleated RBC 0 10^3/ul; Eosinophil % 5.4 %; Hematocrit 35 % (42-52); Hemoglobin 11.5 g/dl (14.0-18.0); Lymphocyte % 13.4 %; Mean Corpuscular HGB Conc 33 g/dl (31-36); Mean Corpuscular Hemoglobin 27 pg (27-31); Mean Corpuscular Volume 82 fL (80-94); Mean Platelet Volume 8.5 fL (7.4-10.4); Nucleated Red Blood Cells % 0; Platelet Count 250 10^3/ul (150-450); Red Blood Count 4.23 10^6/ul (4.00-5.40); Red Cell Distribution Width 18 % (10.5-15); White Blood Count 6.7 10^3/ul (3.5-10.8)
[2018-05-18] MEDS: Albumin Human 25%* 25 GM/100 ML IV SCH ×2 (12:58→21:10)
[2018-05-18 13:09] LABS: Activated Partial Thrombo Time 37.7 seconds (26.0-36.3); INR 0.99 (0.77-1.02)
[2018-05-18 13:10] LABS: EGFR African American 27.6 (>60); EGFR Non-African American 22.8 (>60)
[2018-05-18] MEDS: Ondansetron INJ* 2 MG/ML VIAL IV PRN ×2 (17:24→22:09)
--- NOTE | 2018-05-18 17:32 | PN ---
Subjective Date of Service: 05/18/18 Interval History: Little subj change. Walking better than on admission. Subj his scrotum is smaller today. Objective Active Medications: Acetaminophen (Tylenol Tab*) 650 mg PO Q4H PRN PRN Reason: FEVER/PAIN Atorvastatin Calcium (Lipitor*) 40 mg PO DAILY [facility] Last Admin: 05/18/18 08:20 Dose: 40 mg Cyanocobalamin (Vitamin B12 Tab*) 1,000 mcg PO DAILY [facility] Last Admin: 05/18/18 08:21 Dose: 1,000 mcg Dextrose (D50w Syringe 50 Ml*) 12.5 gm IV PUSH .FOR FS < 60 - SS PRN PRN Reason: FS < 60 Docusate Sodium (Colace Cap*) 100 mg PO DAILY [facility] Last Admin: 05/18/18 08:21 Dose: 100 mg Furosemide (Lasix Iv*) 80 mg IV Q8H [facility] Last Admin: 05/18/18 11:24 Dose: 80 mg Heparin Sodium (Porcine) (Heparin Vial(*)) 5,000 units SUBCUT Q8HR [facility] Stop: 05/19/18 06:00 Last Admin: 05/18/18 15:55 Dose: 5,000 units Albumin Human (Albumin Human 25%*) 25 gm in 100 mls @ 12 mls/hr IV 0500,1300, 2100 [facility] Last Admin: 05/18/18 12:58 Dose: 12 mls/hr Insulin Human Lispro (Humalog*) 0 units SUBCUT ACHS [facility]; Protocol Last Admin: 05/18/18 17:18 Dose: 4 unit Lorazepam (Ativan Inj*) 1 mg IV PUSH Q6H PRN PRN Reason: ANXIETY Last Admin: 05/17/18 21:22 Dose: 1 mg Magnesium Hydroxide (Milk Of Magnesia Liq*) 30 ml PO Q4H PRN PRN Reason: CONSTIPATION Ondansetron HCl (Zofran Inj*) 4 mg IV Q4H PRN PRN Reason: NAUSEA/VOMITING Last Admin: 05/17/18 21:22 Dose: 4 mg Senna (Senokot Tab*) 1 tab PO DAILY [facility] Last Admin: 05/18/18 08:21 Dose: 1 tab Sodium Biphosphate/Sodium Phosphate (Fleet Enema*) 1 bottle VA DAILY PRN PRN Reason: CONSTIPATION Last Admin: 05/14/18 15:15 Dose: 1 bottle Tamsulosin HCl (Flomax Cap*) 0.4 mg PO DAILY [facility] Last Admin: 05/18/18 08:21 Dose: 0.4 mg Terazosin HCl (Hytrin Cap*) 2 mg PO DAILY [facility] Last Admin: 05/18/18 08:21 Dose: 2 mg Vital Signs - 8 hr 05/18/18 11:25 Temperature 97.9 F Pulse Rate 93 Respiratory 18 Rate Blood Pressure 143/80 (mmHg) O2 Sat by Pulse 94 Oximetry Oxygen Devices in Use Now: None Appearance: Alert, supine in bed. Anxious as before, otherwise looks comfortable. Eyes: No Scleral Icterus Extremities: No Clubbing, Cyanosis, - - 1+ edema BL Skin: No Rash or Ulcers, No Nodules or Sclerosis, - Neurological: Alert and Oriented x 3, NL Sensation Result Diagrams: 05/18/18 12:30 05/18/18 12:30 Microbiology and Other Data: Microbiology 05/14/18 01:05 Urine Culture - Final Urine No Growth (<1,000 CFU/mL) Assess/Plan/Problems-Billing Assessment: - Patient Problems (1) Nephrotic syndrome Current Visit: No Status: Acute Code(s): N04.9 - NEPHROTIC SYNDROME WITH UNSPECIFIED MORPHOLOGIC CHANGES SNOMED Code(s): 77517721 Comment: Creatinine stable. Lost 12 lbs as of 05/18/18. -Continue IV Lasix and IV Albumin as ordered -For planned renal biopsy 05/19 (2) Diabetes Current Visit: Yes Status: Acute Code(s): E11.9 - TYPE 2 DIABETES MELLITUS WITHOUT COMPLICATIONS SNOMED Code(s): 99623539 Comment: - HBa1c (05/16/18) =7.6 -Continue ISS Status and Disposition: -As above -Awaiting planned renal bx tomorrow by Dr. Cruz -Coags ordered -NPO after midnight, but may drink clears PRN and meds ordered -To hold Heparin SQ in AM
[2018-05-18] MEDS: LORazepam INJ* 2 MG/ML 1 ML VIAL IV PUSH PRN (22:09)
[2018-05-19] MEDS: Furosemide IV* 10 MG/ML 10 ML VIAL (100 MG) IV SCH ×3 (03:33→18:27)
[2018-05-19] MEDS: Heparin VIAL(*) 5000 UNITS/ML VIAL (FIVE THOUSAND) SUBCUT SCH (05:37)
[2018-05-19] MEDS: LORazepam INJ* 2 MG/ML 1 ML VIAL IV PUSH PRN ×3 (05:42→22:06)
[2018-05-19 06:36] LABS: Activated Partial Thrombo Time 35.9 seconds (26.0-36.3); INR 0.98 (0.77-1.02)
[2018-05-19] MEDS: Albumin Human 25%* 25 GM/100 ML IV SCH ×3 (07:58→17:00)
[2018-05-19] MEDS: Insulin LISPRO* 1 UNITS UNIT SUBCUT SCH ×4 (09:23→22:05)
[2018-05-19] MEDS: Senna TAB PO SCH (10:20)
[2018-05-19] MEDS: Atorvastatin* 40 MG TAB PO SCH (10:20)
[2018-05-19] MEDS: Tamsulosin CAP* 0.4 MG PO SCH (10:21)
[2018-05-19] MEDS: Cyanocobalamin TAB* 500 MCG PO SCH (10:21)
[2018-05-19] MEDS: Docusate CAP* 100 MG PO SCH (10:21)
[2018-05-19] MEDS ORDERED: fentaNYL* 50 MCG/ML 2 ML VIAL (100 MCG VIAL) ONE (12:07)
[2018-05-19] MEDS ORDERED: Naloxone* 0.4 MG/ML 1 ML VIAL ONE (12:08)
[2018-05-19] MEDS: Terazosin CAP* 1 MG PO SCH (14:56)
--- NOTE | 2018-05-19 17:09 | PN ---
Progress Note - Progress Note Date of Service: 05/19/18 Note: Time spent on discharge including exam of patient, discussion with patient, CM, nurse, review of EMR and preparation of discharge documents 35 minutes.
--- NOTE | 2018-05-19 21:35 | DS ---
CC: Dr. Tam; Dr. Em * DISCHARGE SUMMARY: DATE OF ADMISSION: 05/13/18 DATE OF DISCHARGE: 05/20/18 HISTORY AND HOSPITAL COURSE: This 72-year-old man was admitted with shortness of breath and anasarca. He has recently been diagnosed as having nephrotic syndrome with 27 g of protein over a 24-hour period. He has anasarca. He has advanced kidney disease with a creatinine ranging about 3. He was seen by Dr. mE, he was started on an TAI inhibitor. He has been on high doses of furosemide at home. The rest of the history is detailed in the admission note. The patient was admitted for albumin infusions and intravenous furosemide. He responded well losing about 14 pounds while in the hospital. His renal function was stable, his last creatinine measured on 05/18/18 was 2.75, potassium was 3.9, sodium 142. The patient had a renal biopsy on 05/19/18, the results of this are pending. He will follow up with Dr. Tam and Dr. Em. I am not changing his diuretic regimen. I will leave that up to Dr. Em. I have encouraged the patient to be sure to limit his salt intake. FINAL DIAGNOSES: 1. Nephrotic syndrome. 2. Advanced kidney disease. 3. Diabetes. DISCHARGE MEDICATIONS: 1. Atorvastatin 40 mg daily. 2. Tamsulosin 0.4 mg daily. 3. NPH insulin 6 units every morning. 4. Clonazepam 0.5 mg daily p.r.n. 5. Ondansetron 4 mg every 6 hours p.r.n. 6. Vitamin B12 1000 mcg p.o. daily. 7. Diphenhydramine 25 mg at bedtime. 8. Candesartan 16 mg b.i.d. 9. Furosemide 80 mg b.i.d. 10. NPH insulin 3 units every evening. CONDITION ON DISCHARGE: Stable. DISPOSITION ON DISCHARGE: Discharged home. [id number]/[facility] #: [id number] MTDD
--- NOTE | 2018-05-19 22:01 | PN ---
PROGRESS NOTE: DATE OF VISIT: 05/19/18. REASON FOR VISIT: Nephrotic syndrome. SUBJECTIVE: The patient is seen and examined at bedside. The patient is noted to be very anxious and asking if he has kidney cancer or pancreatic cancer, also had questions about dialysis and further management. I discussed with the patient that the patient is getting kidney a biopsy for conclusive diagnosis, so further management can be planned. Vitals and labs reviewed. BUN noted to be 40, creatinine noted to be 2.7. PHYSICAL EXAMINATION: HEENT: NCAT. Heart: S1, S2 present, regular at time of exam. Lungs: Decreased breath sounds bilaterally. Abdomen: Soft. Extremities: Noted to have 2+ edema. Neuro: Alert and oriented. ASSESSMENT AND PLAN: 1. Nephrotic syndrome with over 27 grams of protein. The patient's kidney function and volume overload/edema has slowly improved with albumin and diuretics. The patient reports that he has lost 14 pounds so far. The patient also is worried that he would gain the weight back when he goes home and is worried about malignancy. We will evaluate results of the kidney biopsy to plan further management. If the patient noted to have membranous nephropathy, then can plan further screening for malignancy. Further treatment plan based on biopsy results. If the patient is stable tomorrow, the patient can be discharged on p.o. diuretics and follow up with Dr. Em and further treatment plan based on conclusive biopsy finding. 2. The patient also had an ultrasound to evaluate for renal vein thrombosis, which can be seen in nephrotic syndrome. The patient was noted to have limited evaluation of the left renal vein due to body habitus and positioning of the kidney. The right renal vein was patent per the renal artery Doppler exam on . [id number]/[facility] #: [id number] [facility]
[2018-05-20] MEDS: Albumin Human 25%* 25 GM/100 ML IV SCH ×2 (01:03→11:17)
[2018-05-20] MEDS: Furosemide IV* 10 MG/ML 10 ML VIAL (100 MG) IV SCH ×2 (02:51→11:40)
[2018-05-20 06:46] LABS: BUN/Creatinine Ratio 14.3 (8-20); Calcium 7.9 mg/dL (8.6-10.3); EGFR African American 27.8 (>60); Potassium 3.7 mmol/L (3.5-5.0)
[2018-05-20] MEDS: Insulin LISPRO* 1 UNITS UNIT SUBCUT SCH ×2 (09:10→12:39)
[2018-05-20] MEDS: Senna TAB PO SCH (10:19)
[2018-05-20] MEDS: Atorvastatin* 40 MG TAB PO SCH (10:20)
[2018-05-20] MEDS: Cyanocobalamin TAB* 500 MCG PO SCH (10:21)
[2018-05-20] MEDS: Terazosin CAP* 1 MG PO SCH (10:23)
[2018-05-20] MEDS: Docusate CAP* 100 MG PO SCH (10:25)
[2018-05-20] MEDS: Tamsulosin CAP* 0.4 MG PO SCH (10:26)
[2018-05-20 13:02] VITALS: BP 148/74
== END 2018-05-20 15:09 | disposition home health service (06) | DRG 684 ==
LOC: ED 14:58 → MEDTELE 15:57
PROVIDERS: ADMIT Internal Medicine; ATTEND Internal Medicine
PROC: 0TB13ZX Excision of Left Kidney, Percutaneous Approach, Diagnostic (ICD-10-PCS; principal; 2018-05-19)
DX: I12.9 Hypertensive chronic kidney disease with stage 1 through stage 4 chronic kidney disease, or unspecified chronic kidney disease (principal); F41.9 Anxiety disorder, unspecified; D64.9 Anemia, unspecified; E88.09 Other disorders of plasma-protein metabolism, not elsewhere classified; N40.0 Benign prostatic hyperplasia without lower urinary tract symptoms; E78.5 Hyperlipidemia, unspecified; G47.00 Insomnia, unspecified; K59.00 Constipation, unspecified; E11.22 Type 2 diabetes mellitus with diabetic chronic kidney disease; N18.9 Chronic kidney disease, unspecified; Z90.49 Acquired absence of other specified parts of digestive tract; Z82.49 Family history of ischemic heart disease and other diseases of the circulatory system; Z79.4 Long term (current) use of insulin; Z85.828 Personal history of other malignant neoplasm of skin; Z80.7 Family history of other malignant neoplasms of lymphoid, hematopoietic and related tissues
CPT/HCPCS: 36415; 71045; 80048; 80053; 81003; 81015; 82565; 83036; 83735; 83880; 84100; 84520; 85025; 85027; 85610; 85730; 87086; 88300; 88329; 93005; 93975; 99284; A9270-GY; G8978-GP-CI; G8979-GP-CI; G8980-GP-CI; J0360; J1644; J1940; J2060; J2310; J2405; J3010; P9045; P9047

== ENCOUNTER → 2018-05-23 14:15 | Emergency (ER) | payer MEDICARE, BC ==
--- OUTSIDE RECORDS SUMMARY | 2018-05-23 14:37 | XMS REPORT | Continuity of Care Document ---
:1945 External Reference #:[id number] Author Name Carlos EduardoSoheila Care Team Providers Name Role Phone Tiago Tam MD Primary Care Physician Unavailable Payers Date Identification Numbers Payment Provider Subscriber Policy Number: [id number] Medicare Jl Harden PayID: [id number] [address] [place] [address] Policy Number: [id number] [facility] Jl Harden PayID: [id number] [address] [address] [place] [address] Policy Number: [id number] [facility] Jl Harden Group Number: [id number] [address] PayID: [id number] [place] [address] Advance Directives Description No Information Available Problems Description No Information Family History Date Family Member(s) Observation Comments General Heart Disease General Hypertension General Hypercholesterolemia General Leukemia General Bladder Cancer Social History Type Date Description Comments Sex Unknown Marital Status Lives With Spouse Occupation Currently Working ETOH Use Denies alcohol use Tobacco Use Start: Unknown Patient has never smoked Smoking Status Reviewed: 10/01/17 Patient has never smoked Allergies, Adverse Reactions, Alerts Description No Known Drug Allergies Medications Medication Date Status Form Strength Qnty SIG Indications Ordering Provider Flonase Active Suspension 50mcg/Act spray 1 spray Unknown Allergy /0000 in each Relief nostril twice daily Azelastine Active Solution 0.15% one puff both Unknown HCL (Nasal) /0000 sides twice a day Saline Mist 00 Active Solution 0.65% daily or as Unknown Bynum /0000 needed Clonazepam 00 Active Tablets 0.5mg as needed Unknown /0000 Dispers Glipizide ER Active Tablets ER 5mg 1 by mouth Unknown /0000 24HR twice daily Metformin HCL Active Tablets 500mg 2 tabs by Unknown /0000 mouth in the am and 1 tab by mouth in the evening Lancets Active Unknown /0000 Glucometer Active Unknown Test Strips Tamsulosin Active Capsules 0.4mg 1 by mouth Unknown HCL / every day Ramipril Active Capsules 2.5mg 1 by mouth Unknown /0000 every day Atorvastatin Active Tablets 40mg 1 by mouth Unknown Calcium / every day Aspirin Ec Active Tablets DR 81mg 1 by mouth Unknown Low Dose /0000 every day Shingrix Active Suspension 50mcg 0.5 Unknown /0000 Rec milliliters intramuscular now and 2-3 months later repeat Bydureon Active Unknown /0000 Medications Administered in Office Medication Date Status Form Strength Qnty SIG Indications Ordering Provider Depomedrol Administered Injection Zoila 40MG JOHNNA Medrano Immunizations Description No Information Available Vital Signs Date Vital Result Comment 10/01/2017 10:26am Height 69 inches 5'9" Weight 196.00 lb Heart Rate 64 /min BP Systolic Sitting 130 mmHg LA reg cuff BP Diastolic Sitting 82 mmHg LA reg cuff Pain Level 4 BMI (Body Mass Index) 28.9 kg/m2 Results Description No Information Available Procedures Date Code Description Status 04/12/2018 52617 ECHO Transthorasic Realtime 2D W Doppler & Color Flow Hosp Completed 10/01/2017 65202 Inject Tendon Sheath Or Ligament Aponeurosis Eg Plantar Completed Fascia Encounters Type Date Location Provider Dx Diagnosis Office Visit 04/13/2018 [facility] N04.9 Nephrotic syndrome 10:19a sandra Olivia M.D. with unspecified Hospitalists morphologic changes R60.1 Generalized edema N17.9 Acute kidney failure, unspecified E16.2 Hypoglycemia, unspecified E11.9 Type 2 diabetes mellitus without complications E66.01 Morbid (severe) obesity due to excess calories F41.9 Anxiety disorder, unspecified N40.0 Benign prostatic hyperplasia without lower urinry tract symp E78.5 Hyperlipidemia, unspecified Office Visit 04/12/2018 10:17a [facility] N04.9 Nephrotic Assocsandra M.D. syndrome with Hospitalists unspecified morphologic changes E16.2 Hypoglycemia, unspecified Office Visit 10/01/2017 10:15a [facility] Zoila Sullivan, M65.312 Trigger thumb, [facility] left thumb C.M[facility]. Plan of Treatment 10/01/2017 - Zoila Sullivan, [facility]-CM65.312 Trigger thumb, left thumbFollow up: Follow up: As needed
--- NOTE | 2018-05-23 15:11 | ED ---
Shortness of Breath - HPI Summary HPI Summary: This patient is a 72 year old male brought in by EMS to [facility] accompanied by his with a cc of SOB. Pt states he cannot take 4 steps without becoming SOB. He went over the sx of kidney disease on google there he saw SOB and is concerned he has kidney disease. His states he caught the cold that she had , he confirms this. He denies fever and chills. He has been coughing since he was admitted and was discharged from his admission on 05-20-18. He just lost 25 pounds due to Lasik. He denies vomiting and cp. He has had a loss of appetite. He received a kidney biopsy but has not received the results. Pt states he is a bit of a hypochondriac. - History of Current Complaint Chief Complaint: EDShortnessOfBreath Time Seen by Provider: 05/23/18 14:38 Hx Obtained From: Patient Onset/Duration: Lasting Hours, Still Present Timing: Constant Current Severity: Moderate Dyspnea At: Exertion Associated Signs & Symptoms: Cough (Nonproductive) - Allergy/Home Medications Allergies/Adverse Reactions: Allergies Allergy/AdvReac Type Severity Reaction Status Date / Time No Known Allergies Allergy Verified 05/12/18 12:14 Home Medications: Home Medications Captopril 1 tab PO TID 05/23/18 [History Confirmed 05/23/18] Lisinopril 20 mg PO DAILY 05/23/18 [History Confirmed 05/23/18] PMH/Surg Hx/FS Hx/Imm Hx Endocrine/Hematology History: Reports: Hx Diabetes - METFORMIN Cardiovascular History: Reports: Hx Hypercholesterolemia Denies: Hx Congestive Heart Failure GI History: Denies: Hx Gastroesophageal Reflux Disease History: Reports: Hx Chronic Renal Failure Sensory History: Reports: Hx Contacts or Glasses - READING Denies: Hx Cataracts, Hx Hearing Aid Opthamlomology History: Reports: Hx Contacts or Glasses - READING Denies: Hx Cataracts Psychiatric History: Reports: Hx Anxiety - NO TREATED Denies: Hx Depression - Surgical History Surgery Procedure, Year, and Place: WISDOM TEETH REMOVAL 2009. BASAL SKIN CA REMOVAL 10 YRS AGO Hx Anesthesia Reactions: No Infectious Disease History: No Infectious Disease History: Denies: Traveled Outside the [place] in Last 30 Days - Family History Known Family History: Negative: Cardiac Disease, Hypertension, Diabetes, Seizure Disorder - Social History Alcohol Use: None Hx Substance Use: No Substance Use Type: Reports: None Hx Tobacco Use: No Smoking Status (MU): Never Smoked Tobacco Review of Systems Constitutional: Other - weight loss Negative: Fever, Chills Negative: Chest Pain Positive: Shortness Of Breath, Cough Gastrointestinal: Other - loss of appetite Negative: Vomiting All Other Systems Reviewed And Are Negative: Yes Physical Exam - Summary Physical Exam Summary: GENERAL: Patient is a well-developed and nourished M who is lying comfortable in the stretcher. Patient is not in any acute respiratory distress. HEAD AND FACE: Normocephalic EYES: PERRLA, EOMI x 2. EARS: Hearing grossly intact. MOUTH: Oropharynx within normal limits. NECK: Supple, trachea is midline, no adenopathy, no JVD, no carotid bruit. CHEST: Symmetric, no tenderness at palpation LUNGS: Clear to auscultation bilaterally. No wheezing or crackles. CVS: Regular rate and rhythm, S1 and S2 present, no murmurs or gallops appreciated. ABDOMEN: Soft, non-tender. Bowel sounds are normal. No abdominal abnormal pulsations. EXTREMITIES: Full ROM in all major joints, one plus edema, no cyanosis or clubbing. NEURO: Alert and oriented x 3. No acute neurological deficits. Speech is normal and follows commands. SKIN: Dry and warm Triage Information Reviewed: Yes Vital Signs On Initial Exam: Initial Vitals Pulse Pulse Ox 80 93 05/23/18 14:31 05/23/18 14:31 Vital Signs Reviewed: Yes Diagnostics - Vital Signs Vital Signs Temp Pulse Resp BP Pulse Ox 05/23/18 15:00 78 1 92 05/23/18 14:38 78 8 117/76 94 05/23/18 14:36 98.4 F 78 18 117/76 95 05/23/18 14:31 80 93 - Laboratory Result Diagrams: 05/23/18 15:51 05/23/18 15:51 Lab Statement: Any lab studies that have been ordered have been reviewed, and results considered in the medical decision making process. - Radiology CXR Radiology Interpretation Completed By: Radiologist Summary of Radiographic Findings: SMALL BILATERAL PLEURAL EFFUSIONS. ED physician has reviewed this report. - Ultrasound No standard instances Summary of Ultrasound Findings: Venous doppler study reveals, per radiology, No deep venous thrombosis. ED physician has reviewed this report. - EKG 1436 Cardiac Rate: NL EKG Rhythm: Sinus Rhythm - at 74 BPM EKG Comparison: No Significant Change - compared to 05-16-18 Summary of EKG Findings: nml AVIVCT, nml QTc, left axis, low voltage, no acutre changes, no ectopy. Read by Dr Musa. Course/Dx - Course Assessment/Plan: This patient is a 72 year old male brought in by EMS to [facility] accompanied by his with a cc of SOB. CXR reveals, SMALL BILATERAL PLEURAL EFFUSIONS. Venous doppler study reveals, per radiology, No deep venous thrombosis. Pt will be signed out to dr moran awaiting lung VQ scan - Diagnoses Provider Diagnoses: SOB (shortness of breath) - Physician Notifications Discussed Care of Patient With: Godfrey Maldonado Time Discussed With Above Provider: 16:26 Instructed by Provider To: Other - He has authorized the VQ scan Discharge - Sign-Out/Discharge Documenting (check all that apply): Sign-Out Patient Signing out patient TO: Cody Moran Patient Received Moderate/Deep Sedation with Procedure: No - Discharge Plan Condition: Stable Disposition: HOME Patient Education Materials: Shortness of Breath (ED) Referrals: Tiago Tam MD [Primary Care Provider] - (Follow up in 1-2 days.) Additional Instructions: RETURN TO THE EMERGENCY DEPARTMENT FOR CHANGING OR WORSENING SYMPTOMS. FOLLOW UP WITH PCP IN 1-2 DAYS. - Billing Disposition and Condition Condition: STABLE Disposition: Home - Attestation Statements Document Initiated by Scribe: Yes Documenting Scribe: Brayan Cardenas Provider For Whom Scribe is Documenting (Include Credential): Jarred Garza MD Scribe Attestation: Brayan Bazzi scribed for Jarred Garza MD on 05/24/18 at 1803. Scribe Documentation Reviewed: Yes Provider Attestation: The documentation as recorded by the Brayan reyez accurately reflects the service I personally performed and the decisions made by , Rocio Garza MD Status of Scribe Document: Viewed
[2018-05-23 15:59] LABS: ABS Basophils 0.1 10^3/ul (0-0.2); ABS Eosinophils 0.4 10^3/ul (0-0.6); ABS Lymphocytes 1.2 10^3/ul (1.0-4.8); ABS Monocytes 1.2 10^3/ul (0-0.8); ABS Neutrophils 7.3 10^3/ul (1.5-7.7); ABS Nucleated RBC 0 10^3/ul; Hematocrit 40 % (42-52); Lymphocyte % 11.4 %; Mean Corpuscular HGB Conc 33 g/dl (31-36); Mean Corpuscular Hemoglobin 27 pg (27-31); Mean Corpuscular Volume 82 fL (80-94); Mean Platelet Volume 8.2 fL (7.4-10.4); Nucleated Red Blood Cells % 0; Platelet Count 392 10^3/ul (150-450); Red Blood Count 4.86 10^6/ul (4.00-5.40); Red Cell Distribution Width 18 % (10.5-15); White Blood Count 10.1 10^3/ul (3.5-10.8)
[2018-05-23 16:07] LABS: Activated Partial Thrombo Time 32.3 seconds (26.0-36.3); INR 0.94 (0.77-1.02)
[2018-05-23 16:14] LABS: Albumin 2.3 g/dL (3.2-5.2); Albumin/Globulin Ratio 0.9 (1-3); BUN/Creatinine Ratio 13.8 (8-20); Calcium 7.8 mg/dL (8.6-10.3); EGFR African American 22.6 (>60); EGFR Non-African American 18.7 (>60); Globulin 2.7 g/dL (2-4); Magnesium 2.3 mg/dL (1.9-2.7); Potassium 3.4 mmol/L (3.5-5.0); Total Bilirubin 0.4 mg/dL (0.2-1.0)
[2018-05-23 16:16] LABS: Troponin I 0.03 ng/mL (<0.04)
[2018-05-23 16:35] LABS: Influenza A Molecular NEGATIVE (Negative); Influenza B Molecular NEGATIVE (Negative)
--- NOTE | 2018-05-23 19:22 | ED ---
Progress - Progress Note Progress Note: This patient was signed out from Dr. Garza to Dr. Moran, pending dispo, awaiting VQ lung scan. VQ lung scan reveals no evidence of pulmonary embolism. ED physician has reviewed this radiology report. This patient will be discharged with dx shortness of breath. Patient understands and agrees with this plan. Course/Dx - Diagnoses Provider Diagnoses: SOB (shortness of breath) - Provider Notifications Time Discussed With Above Provider: 16:26 Instructed by Provider To: Other - He has authorized the VQ scan Discharge - Sign-Out/Discharge Documenting (check all that apply): Patient Departure Patient Received Moderate/Deep Sedation with Procedure: No - Discharge Plan Condition: Stable Disposition: HOME Patient Education Materials: Shortness of Breath (ED) Referrals: Tiago Tam MD [Primary Care Provider] - (Follow up in 1-2 days.) Additional Instructions: RETURN TO THE EMERGENCY DEPARTMENT FOR CHANGING OR WORSENING SYMPTOMS. FOLLOW UP WITH PCP IN 1-2 DAYS. - Billing Disposition and Condition Condition: STABLE Disposition: Home - Attestation Statements Document Initiated by Nicholibe: Yes Documenting Scribe: Devendra Campos Provider For Whom Nicholibe is Documenting (Include Credential): Cody Moran MD Scribe Attestation: Devendra Bazzi, scribed for Cody Moran MD on 05/24/18 at 0528. Scribe Documentation Reviewed: Yes Provider Attestation: The documentation as recorded by the Devendra reyez accurately reflects the service I personally performed and the decisions made by me, Cody Moran MD Status of Scribe Document: Viewed
[2018-05-23 20:18] VITALS: BP 159/88
== END | disposition home or self-care (01) ==
LOC: ED 14:15
DX: R06.02 Shortness of breath (principal); R05 Cough; R63.0 Anorexia; E11.9 Type 2 diabetes mellitus without complications
CPT/HCPCS: 36415; 71046; 78582; 80053; 83605; 83735; 83880; 84484; 85025; 85379; 85610; 85730; 93005; 93970; 99283; A9540; A9558

== ENCOUNTER 2018-06-10 11:33 | Inpatient (IN) | payer MEDICARE, BC, OTHER ==
--- OUTSIDE RECORDS SUMMARY | 2018-06-10 11:52 | XMS REPORT | Continuity of Care Document ---
:1945 External Reference #:[id number] Author Name Tiago Tam M.D. Address [address] [facility] [address] [place] [address] Care Team Providers Name Role Phone HCP given Primary Care Physician Unavailable Payers Date Identification Numbers Payment Provider Subscriber Policy Number: [id number] [facility] Lefty Harden PayID: [id number] [address] [place] [address] Policy Number: [id number] [facility] Lefty Harden PayID: [id number] [address] [place] [address] Advance Directives Description No Information Available Problems Date Description Provider Status Onset: 11/10/2011 Pure hypercholesterolemia Tiago Tam M.D. Active Onset: 11/10/2011 Type 2 diabetes mellitus Tiago Tam M.D. Active Onset: 03/18/2013 Type 2 diabetes mellitus Tiago Tam M.D. Active Onset: 05/24/2016 Chronic rhinitis Yung Jose D.O. Active Onset: 04/09/2018 Proteinuria Tiago Tam M.D. Active Onset: 04/09/2018 Edema Tiago Tam M.D. 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 Father Hypercholesterolemia [...] Form Strength Qnty SIG Indications Ordering Provider Eliquis 05/28/ Active Tablets 2.5mg 30tab 1 tablet by Arleo 2019 s mouth daily [facility] Furosemide 05/28/ Active Tablets 80mg take one tablet R60.1 Hesschristina, 2019 by mouth twice MD Eusebio a day for edema Humulin N 05/11/ Active Supn 100Unit/M 15ml inject 6 units E11.65 Silcoff Kwikpen 2019 L subcutaneously Tiago, in the morning M.D. and 2 units at suppertime (to replace Lantus) E11.21 Sleeping Pill 05/10/2018 Active hs Unknown Candesartan 05/07/2018 Active Tablets 16mg 2 po daily Unknown Cilexetil Ondansetron HCL 05/01/2018 Active Tablets 4mg 30t 1 by mouth every R11 Silcoff, abs 4 hours as needed .0 дмитрий Ordoñez nausea M.D. Vitamin B12 04/13/2018 Active Tablets ER 1000m Unknown cg Freestyle 09/28/2017 Active Misc 100 use 1-2x/day for E11 Silcoff, Lancets uni blood sugar .65 arthur Ordoñez monitoring M.D. Freestyle Lite 09/18/2017 Active Strips 100 use 2x/day as E11 Silcoff, Test uni directed for .65 arthur Ordoñez monitoring blood M.D. sugar Pen Afton 08/28/2017 Active Misc 31G X 100 use [...] 28G 09/20/2014 Active 100 Use as Directed Silquintinff, Lancets uni 1-2 Times A Day arthur Ordoñez For Monitoring M.D. Blood Sugar Glucometer 10/19/2013 Active 1un use as directed E11 Silcoff, its .65 Cha Ordoñez Atorvastatin 06/02/2012 Active Tablets 40mg 90t 1 by mouth every Silcoff, Calcium abs day for high Tiago, cholesterol (to M.D. replace crestor) Lisinopril 05/05/2018 - Hx Tablets 20mg 1 pill every E11 Unknown 05/10/2018 morning for .21 kidney protection Lantus Solostar 04/20/2018 - Hx Solution 100Un inject 10units E11 Silcoff, 05/11/2018 Pen-Inject it/ML once daily, at .65 Tiago, same time every M.D. day; for blood sugar control E11.21 Furosemide 04/19/2018 - Hx Tablets 40mg 2 by mouth R60.1 Venkataon, 05/31/2018 twice daily MD Eusebio Captopril 04/19/2018 - Hx Tablets 12.5mg 1 tab three E11.21 Hesson, 05/05/2018 times a day MD Eusebio for kidney protection Lantus 04/19/2018 - Hx Solution 100Unit/ inject 15units E11.65 Silcoff , Solostar 04/20/2018 Pen-Inject ML once daily, at Tiago, same time M.D. every day; for blood sugar control E11.21 [...] Tablets 5mg 90tabs 1 tab by E11.65 Silcorafal, 04/06/2018 mouth every Cha Ordoñez day for blood sugar control E11.21 E11.65 Tradjenta 02/24/2018 - Hx Tablets 5mg 90tabs 1 by mouth E11.65 Silcoff, 03/05/2018 every day for Cha Ordoñez blood sugar control E11.21 E11.65 Amoxicillin/Clavulanate 01/09/2018 Hx Tablets 875-125mg 20tabs 1 tab L03.313 Silcoff, Potassium - by Tiago, 01/19/2018 mouth M.DMeaghan twice a day x10 days Lantus Quyenostar 12/26/2017 Hx Solution 100Unit/ML 15ml inject E11.65 Silcoff, - Pen-Inje 30unit Tiago, 04/19/2018 ct s once M.D. daily, at same time every day; for blood sugar contro l Lantus Quyenostar 12/09/2017 Hx Solution 100Unit/ML 15ml inject E11.65 [...] for blood sugar contro l Chikis Reid 09/09/2017 Hx Solution 100Unit/ML inject E11.65 Silcoff, [...] needed for nasal draina ge Saline Nasal [place] 05/24/2016 Hx Solution 0.65% 132ml Use 5 [...] 10/16/2015 Hx Pen 2mg 12units inject E11.65 Anel, - 2mg Tiago, 12/11/2015 once M.D. weekly as direct ed for blood sugar contro l Pen Afton 10/16/2015 Hx Misc 31G X 5 mm 25units use as E11.65 Marysecorafal , - direct Tiago, 08/28/2017 ed for M.D. admini strati on of Bydure on Neomycin/Polymyxin/Sykeston 09/21/2015 Hx Suspensi 3.5-62440- 10ml 4-5 H60.8x1 Rigoberto cortisone (Otic) - on 1 drops A. 10/01/2015 in [facility], right M.D. ear qid x 7days Glipizide ER 05/21/2015 Hx Tablets 5mg 180tabs take 1 . Anel, - ER 24HR tablet Tiago, 04/13/2018 by M.Isaak mouth 2x/day to lower blood sugar Metformin HCL ER 05/20/2015 Hx Tablets 500mg 270tabs 2 by .65 Anel, - ER 24HR mouth Tiago, 02/24/2018 every M.D. mornin g and 1 every evenin g; for blood sugar contro l E11.21 E11.65 Glipizide ER 02/14/2015 - Hx Tablets ER 5mg 90tabs take 1 . Marysecorafal, 05/21/2015 24HR tablet by shey Ordoñez [...] E11.65 Silcoff, ER 02/14/2015 24HR tablets by Tiago mouth every M.D. evening for 1 week then [...] Capsules 100mg 30caps 1-2 by mouth 786.2 Silcorafal, 11/14/2012 three times a Cha Ordoñez day as needed for cough 486 Levofloxacin 09/01/2012 - Hx Tablets 750mg 10tabs 1 by mouth 486 Silcoff, 09/11/2012 every day дмитрий Ordoñez.D. pneumonia Metformin HCL ER 05/31/2012 - Hx [...] for 272.0 Silcoff, 09/13/2010 high Tiago cholesterol Arya.DMeaghan Paxil 09/27/2004 - Hx Tablets 40mg 1.5 [...] Capsules 40mg 1 po bid Unknown 04/19/2003 [place] - Hx Capsules 300mg 1 po tid Unknown Carbonate 05/27/2006 Lipitor - Hx Tablets 20mg 90tabs 1 po qd with Silcoff, 05/05/2005 supper for high Cha Ordoñez cholesterol Immunizations CPT Code Status Date Vaccine Lot # [id number] Given 01/20/2018 Influenza Vaccine, Inactivated, Subunit, [id number] Adjuvanted, For Intrmusc 47921 Given 04/20/2017 Influenza Virus Vaccine, Quadrivalent, Split, [id number] Preservative Free 81323 Given 04/21/2016 Influenza Virus Vaccine, Quadrivalent, Split, [id number] Preservative Free 13258 Given 11/23/2015 Adacel or Boostrix, TDaP [id number] 15885 Given 10/16/2015 Prevnar 13 [id number] 24398 Given 02/14/2015 Influenza Vaccine Split Virus Preservative Free Im by137VA Use 73030 Given 02/14/2014 Flu, Split Virus 3Yrs [id number] 97687 Given 03/18/2013 Flu, Split Virus 3Yrs [id number] 57806 Given 11/10/2011 Pneumococcal Immunization [id number] Refused 08/28/2017 Shingrix Zoster (Shingles) Vaccine (HZV) Recomb,Subnit,Adjuvanted 04321 Refused 10/16/2015 Adacel or Boostrix, TDaP [id number] Refused 11/13/2014 Prevnar 13 [id number] Refused 04/24/2008 Zostavax [id number] Refused 04/24/2008 Adacel or Boostrix, TDaP Vital Signs Date Vital Result Comment 05/31/2018 2:36pm BP Systolic 120 mmHg BP Diastolic 86 mmHg Weight 240.00 lb w/pants per pt that weight 2 lbs 05/11/2018 5:20pm BP Systolic 112 mmHg BP [...] Test Result H/L Range Note Laboratory test 05/23/2018 [facility] Troponin-I 0.03 ng/mL <0.04 1 finding [phone] (TnI) Rapid Influenza A 05/23/2018 [facility] Influenza A NEGATIVE Negative 2 & B Molecular [phone] Molecular Influenza B Molecular NEGATIVE Negative Laboratory test 05/23/2018 [facility] Rapid Influenza A SEE RESULT 3 finding [phone] B Antigen BELOW CBC Auto Diff 05/23/2018 [facility] White Blood Count 10.1 10^3/uL N 3.5-10. [phone] Red Blood Count 4.86 10^6/uL N 4.00-5.40 Hemoglobin 13.0 g/dL Low 14.0-18.0 Hematocrit 40 % Low 42-52 Mean Corpuscular Volume 82 fL N 80-94 Mean Corpuscular Hemoglobin 27 pg N 27-31 Mean Corpuscular HGB Conc 33 g/dL N 31-36 Red Cell Distribution Width 18 % High 10.5-15 Platelet Count 392 10^3/uL N 150-450 Mean Platelet Volume 8.2 fL N 7.4-10.4 Abs Neutrophils 7.3 10^3/uL N 1.5-7.7 Abs Lymphocytes 1.2 10^3/uL N 1.0-4.8 Abs Monocytes 1.2 10^3/uL High 0-0.8 Abs Eosinophils 0.4 10^3/uL N 0-0.6 Abs Basophils 0.1 10^3/uL N 0-0.2 Abs Nucleated RBC 0 10^3/uL Granulocyte % 72.4 % Lymphocyte % 11.4 % Monocyte % 11.5 % Eosinophil % 4.0 % Basophil % 0.7 % Nucleated Red Blood Cells % 0 Inr/Protime 05/23/2018 [facility] Inr 0.94 N 0.77-1.02 [phone] Laboratory test 05/23/2018 [facility] Partial 32.3 seconds N 26.0- 36.3 finding [phone] Thrombo Time PTT D Dimer Quantitative 1029 ng/mL High Less Than 230 4 Lactic Acid 1.1 mmol/L N 0.5-2.0 5 Comp Metabolic Panel 05/23/2018 [facility] Sodium 142 mmol/L N 135- 145 [phone] Potassium 3.4 mmol/L Low 3.5-5.0 Co2 Carbon Dioxide 24 mmol/L N 22-32 Glucose 149 mg/dL High 70-100 Blood Urea Nitrogen 45 mg/dL High 6-24 Creatinine 3.27 mg/dL High 0.67-1.17 BUN/Creatinine Ratio 13.8 N 8-20 Calcium 7.8 mg/dL Low 8.6-10.3 Total Protein 5.0 g/dL Low 6.4-8.9 Albumin 2.3 g/dL Low 3.2-5.2 Globulin 2.7 g/dL N 2-4 Albumin/Globulin Ratio 0.9 Low 1-3 Total Bilirubin 0.40 mg/dL N 0.2-1.0 Alkaline Phosphatase 100 U/L N 34-104 Alt 25 U/L N 7-52 Ast 26 U/L N 13-39 Egfr Non- 18.7 >60 Egfr 22.6 >60 6 Chloride 113 mmol/L High 101-111 Anion Gap 5 mmol/L N 2-11 Laboratory test finding 05/23/2018 [facility] Magnesium 2.3 mg/dL N 1.9-2.7 [phone] Troponin-I (TnI) 0.03 ng/mL <0.04 7 B-Type Natriuretic Peptide BNP 40 pg/mL <=100 Urine Culture And 05/13/2018 [facility] Urine Culture SEE RESULT BELOW 8 Sensitivities [phone] Urinalysis Profile 05/13/2018 [facility] Urine Color Yellow [phone] Urine Appearance Cloudy Urine Specific [place] 1.016 N 1.010-1.030 Urine pH 7.0 N 5-9 Urine Urobilinogen Negative Negative Urine Ketones Negative Negative Urine Protein 3+(>=500 mg/dL) Abnormal Negative Urine Leukocytes Trace Abnormal Negative Urine Blood 1+ Abnormal Negative Urine Nitrite Negative Negative Urine Bilirubin Negative Negative Urine Glucose 2+(150 mg/dL) Abnormal Negative Urine White Blood Cell 3+(>20/hpf) Abnormal Absent Urine Red Blood Cell 3+(>10/hpf) Abnormal Absent Urine Bacteria Absent Absent Urine Hyaline Casts Present Abnormal Absent Urine Granular Casts Present Abnormal Absent Laboratory test finding 05/13/2018 [facility] Phosphorus 4.1 mg/dL N 2.5-5.0 [phone] Magnesium 2.3 mg/dL N 1.9-2.7 Comp Metabolic Panel 05/13/2018 [facility] Sodium 140 mmol/L N 135- 145 [phone] Potassium 4.0 mmol/L N 3.5-5.0 Chloride 111 mmol/L N 101-111 Co2 Carbon Dioxide 25 mmol/L N 22-32 Anion Gap 4 mmol/L N 2-11 Glucose 117 mg/dL High 70-100 Blood Urea Nitrogen 49 mg/dL High 6-24 Creatinine 3.04 mg/dL High 0.67-1.17 BUN/Creatinine Ratio 16.1 N 8-20 Calcium 7.3 mg/dL Low 8.6-10.3 Total Protein 4.3 g/dL Low 6.4-8.9 Albumin 1.8 g/dL Low 3.2-5.2 Globulin 2.5 g/dL N 2-4 Albumin/Globulin Ratio 0.7 Low 1-3 Total Bilirubin 0.20 mg/dL N 0.2-1.0 Alkaline Phosphatase 79 U/L N 34-104 Alt 35 U/L N 7-52 Ast 31 U/L N 13-39 Egfr Non- 20.3 >60 Egfr 24.6 >60 9 CBC Auto Diff 05/13/2018 [facility] White Blood Count 7.5 10^3/uL N 3.5-10.8 [phone] Red Blood Count 4.72 10^6/uL N 4.00-5.40 Hemoglobin 12.6 g/dL Low 14.0-18.0 Hematocrit 38 % Low 42-52 Mean Corpuscular Volume 81 fL N 80-94 Mean Corpuscular Hemoglobin 27 pg N 27-31 Mean Corpuscular HGB Conc 33 g/dL N 31-36 Red Cell Distribution Width 18 % High 10.5-15 Platelet Count 304 10^3/uL N 150-450 Mean Platelet Volume 8.0 fL N 7.4-10.4 Abs Neutrophils 5.4 10^3/uL N 1.5-7.7 Abs Lymphocytes 1.1 10^3/uL N 1.0-4.8 Abs Monocytes 0.7 10^3/uL N 0-0.8 Abs Eosinophils 0.3 10^3/uL N 0-0.6 Abs Basophils 0 10^3/uL N 0-0.2 Abs Nucleated RBC 0 10^3/uL Granulocyte % 71.9 % Lymphocyte % 14.2 % Monocyte % 9.6 % Eosinophil % 3.7 % Basophil % 0.6 % Nucleated Red Blood Cells % 0 Laboratory test 05/13/2018 [facility] B-Type Natriuretic 17 pg/mL <= 100 finding [phone] Peptide BNP CBC Auto Diff 05/12/2018 [facility] White Blood Count 6.7 10^3/uL N 3.5-10.8 [phone] Red Blood Count 4.95 10^6/uL N 4.00-5.40 Hemoglobin 13.2 g/dL Low 14.0-18.0 Hematocrit 40 % Low 42-52 Mean Corpuscular Volume 82 fL N 80-94 Mean Corpuscular Hemoglobin 27 pg N 27-31 Mean Corpuscular HGB Conc 33 g/dL N 31-36 Red Cell Distribution Width 18 % High 10.5-15 Platelet Count 303 10^3/uL N 150-450 Mean Platelet Volume 8.4 fL N 7.4-10.4 Abs Neutrophils 4.5 10^3/uL N 1.5-7.7 Abs Lymphocytes 1.1 10^3/uL N 1.0-4.8 Abs Monocytes 0.7 10^3/uL N 0-0.8 Abs Eosinophils 0.4 10^3/uL N 0-0.6 Abs Basophils 0.1 10^3/uL N 0-0.2 Abs Nucleated RBC 0 10^3/uL Granulocyte % 67.5 % Lymphocyte % 16.1 % Monocyte % 9.9 % Eosinophil % 5.7 % Basophil % 0.8 % Nucleated Red Blood Cells % 0.1 Comp Metabolic Panel 05/12/2018 [facility] Sodium 140 mmol/L N 135- 145 [phone] Potassium 4.2 mmol/L N 3.5-5.0 Co2 Carbon Dioxide 23 mmol/L N 22-32 Glucose 112 mg/dL High 70-100 Blood Urea Nitrogen 51 mg/dL High 6-24 Creatinine 3.02 mg/dL High 0.67-1.17 BUN/Creatinine Ratio 16.9 N 8-20 Calcium 7.8 mg/dL Low 8.6-10.3 Total Protein 4.5 g/dL Low 6.4-8.9 Albumin 1.8 g/dL Low 3.2-5.2 Globulin 2.7 g/dL N 2-4 Albumin/Globulin Ratio 0.7 Low 1-3 Total Bilirubin 0.20 mg/dL N 0.2-1.0 Alkaline Phosphatase 91 U/L N 34-104 Alt 22 U/L N 7-52 Ast 31 U/L N 13-39 Egfr Non- 20.5 >60 Egfr 24.8 >60 10 Chloride 112 mmol/L High 101-111 Anion Gap 5 mmol/L N 2-11 Laboratory test finding 05/12/2018 [facility] Magnesium 2.4 mg/dL N 1.9-2.7 [phone] Lipase 39 U/L N 11.0-82.0 Creatine Kinase(CK) 320 U/L High 10-223 C Reactive Protein 6.97 mg/L N <8.01 Troponin-I (TnI) 0.01 ng/mL <0.04 11 Lactic Acid 0.7 mmol/L N 0.5-2.0 12 Urinalysis Profile 05/12/2018 [facility] Urine Color Yellow [phone] Urine Appearance Cloudy Urine Specific [place] 1.020 N 1.010-1.030 Urine pH 5.0 N 5-9 Urine Urobilinogen Negative Negative Urine Ketones Negative Negative Urine Protein 3+(>=500 mg/dL) Abnormal Negative Urine Leukocytes Negative Negative Urine Blood 2+ Abnormal Negative Urine Nitrite Negative Negative Urine Bilirubin Negative Negative Urine Glucose 3+(>=500 mg/dL) Abnormal Negative Urine White Blood Cell 1+(6-10/hpf) Abnormal Absent Urine Red Blood Cell 1+(3-5/hpf) Abnormal Absent Urine Bacteria Absent Absent Urine Hyaline Casts Present Abnormal Absent Urine Granular Casts Present Abnormal Absent Urine Amorphous Crystals Present Abnormal Absent Urine Culture And 05/12/2018 [facility] Urine Culture SEE RESULT 13 Sensitivities [phone] BELOW Inr/Protime 05/12/2018 [facility] Inr 0.90 N 0.77-9 [phone] .02 Laboratory test 05/12/2018 [facility] Partial 37.0 seconds High 26.0- 3 finding [phone] Thrombo Time 6.3 PTT B-Type Natriuretic Peptide BNP 22 pg/mL <=100 Laboratory test 05/11/2018 In House Hemoglobin A1c 7.0 finding Comp Metabolic Panel 05/10/2018 [facility] Sodium 141 mmol/L N 135- 145 [phone] Potassium 4.5 mmol/L N 3.5-5.0 Co2 Carbon [...] Egfr Non- 19.8 >60 Egfr 23.9 >60 14 Chloride 112 mmol/L High 101-111 Anion Gap 4 mmol/L N 2-11 Laboratory test finding 05/10/2018 [facility] Phosphorus 4.8 mg/dL N 2.5-5.0 [phone] Magnesium 2.5 mg/dL N 1.9-2.7 CBC Auto Diff 05/05/2018 [facility] White Blood Count 6.7 10^3/uL N 3.5-10.8 [phone] Red Blood Count 5.22 10^6/uL N 4.00-5.40 [...] % Nucleated Red Blood Cells % 0.1 Laboratory test finding 05/05/2018 [facility] Uric Acid 6.3 mg/dL N 4.4-7.6 [phone] Phosphorus 4.3 mg/dL N 2.5-5.0 Magnesium 2.4 mg/dL N 1.9-2.7 Liver Function 05/05/2018 [facility] Direct Bilirubin 0.00 mg/dL Low 0.03-0.18 Panel [phone] Lipid Profile 05/05/2018 [facility] Triglycerides 130 mg/dL 15 (Trig/Chol/HDL [phone] ) Cholesterol 341 mg/dL 16 HDL Cholesterol 57.1 mg/dL 17 LDL Cholesterol 258 mg/dL 18 Comp Metabolic Panel 05/05/2018 [facility] Sodium 141 mmol/L N 135- 145 [phone] Potassium 4.6 mmol/L N 3.5-5.0 Chloride 110 [...] Egfr Non- 21.1 >60 Egfr 25.5 >60 19 Basic Metabolic Panel 05/04/2018 [facility] Sodium 138 mmol/L N 135- 145 [phone] Potassium 4.1 mmol/L N 3.5-5.0 Chloride 108 mmol/L N 101-111 Co2 Carbon Dioxide 23 mmol/L N 22-32 Anion Gap 7 mmol/L N 2-11 Glucose 168 mg/dL High 70-100 Blood Urea Nitrogen 50 mg/dL High 6-24 Creatinine 2.97 mg/dL High 0.67-1.17 BUN/Creatinine Ratio 16.8 N 8-20 Calcium 7.7 mg/dL Low 8.6-10.3 Egfr Non- 20.9 >60 Egfr 25.2 >60 20 Urinalysis Profile 05/03/2018 [facility] Urine Color Yellow [phone] Urine Appearance Cloudy Urine Specific [place] 1.021 N 1.010-1.030 Urine pH 5.0 N [...] Absent Urine Hyaline Casts Present Abnormal Absent CBC Auto Diff 05/03/2018 [facility] White Blood Count 7.0 10^3/uL N 3.5-10.8 [phone] Red Blood Count 5.38 10^6/uL N 4.00-5.40 [...] Blood Cells % 0 Urine Culture And 05/03/2018 [facility] Urine Culture SEE RESULT 21 Sensitivities [phone] BELOW Laboratory test 04/20/2018 In House Glucose 87 22 finding Comp Metabolic Panel 04/16/2018 [facility] Sodium 141 mmol/L N 135- 145 [phone] Potassium 4.6 mmol/L N 3.5-5.0 Chloride 109 [...] Egfr Non- 24.4 >60 Egfr 29.6 >60 23 Laboratory test finding 04/16/2018 [facility] Phosphorus 4.4 mg/dL N 2.5-5.0 [phone] Magnesium 2.8 mg/dL High 1.9-2.7 CBC Auto Diff 04/16/2018 [facility] White Blood Count 10.1 10^3/uL N 3.5-10.8 [phone] Red Blood Count 5.39 10^6/uL N 4.00-5.40 [...] Blood Cells % 0 Laboratory test 04/11/2018 [facility] Point of Care 159 mg/dL High 70 -100 24 finding [phone] Glucose Laboratory test 04/11/2018 [facility] Point of Care 32 mg/dL Low 70- 100 25 finding [phone] Glucose Urinalysis Profile 04/11/2018 [facility] Urine Color Yellow [phone] Urine Appearance Cloudy Urine Specific [place] 1.023 N 1.010-1.030 Urine pH 5.0 N [...] Present Abnormal Absent Urine Culture And 04/11/2018 [facility] Urine Culture SEE RESULT 26 Sensitivities [phone] BELOW CBC Auto Diff 04/11/2018 [facility] White Blood 8.5 10^3/uL N 3.5- 10. [phone] Count 8 Red Blood Count 5.49 10^6/uL [...] Blood Cells % 0 Laboratory test 04/11/2018 [facility] Partial 36.1 seconds N 26.0- 36.3 finding [phone] Thrombo Time PTT B-Type Natriuretic Peptide BNP 20 pg/mL <=100 Comp Metabolic Panel 04/11/2018 [facility] Sodium 138 mmol/L N 135- 145 [phone] Potassium 4.2 mmol/L N 3.5-5.0 Chloride 108 [...] Egfr Non- 23.8 >60 Egfr 28.8 >60 27 Glucose 44 mg/dL Low 70-100 28 Laboratory test 04/11/2018 [facility] C Reactive Protein 3.23 mg/L N <8.01 finding [phone] Troponin-I (TnI) 0.03 ng/mL <0.04 29 CKMB 04/11/2018 [facility] CKMB ng/mL 44.5 ng/mL High 0.6-6.3 [phone] Laboratory test 04/11/2018 [facility] Lactic Acid 0.6 mmol/L N 0.5- 2.0 30 finding [phone] Total Protein 04/09/2018 [facility] Urine TP 2994 mg/dL 24HR Urine [phone] Concentration Urine Total Protein/24HR 16710 mg/24Hr High 0-165 Urine Collection Time 24 hr Urine Total Volume 925 mL Basic Metabolic Panel 04/07/2018 [facility] Sodium 143 mmol/L N 135- 145 [phone] Potassium 4.1 mmol/L N 3.5-5.0 Chloride 110 mmol/L N 101-111 Co2 Carbon Dioxide 27 mmol/L N 22-32 Anion Gap 6 mmol/L N 2-11 Glucose 60 mg/dL Low 70-100 Blood Urea Nitrogen 50 mg/dL High 6-24 Creatinine 2.55 mg/dL High 0.67-1.17 BUN/Creatinine Ratio 19.6 N 8-20 Calcium 7.4 mg/dL Low 8.6-10.3 Egfr Non- 24.9 >60 Egfr 30.1 >60 31 Urine Culture And 04/03/2018 [facility] Urine Culture SEE RESULT 32 Sensitivities [phone] BELOW CBC Auto Diff 04/03/2018 [facility] White Blood 7.4 10^3/uL N 3.5- 10. [phone] Count 8 Red Blood Count 5.54 10^6/uL [...] Blood Cells % 0 Urinalysis Profile 04/03/2018 [facility] Urine Color Yellow [phone] Urine Appearance Cloudy Urine Specific [place] 1.025 N 1.010-1.030 Urine pH 5.0 N [...] Present Abnormal Absent Comp Metabolic Panel 04/03/2018 [facility] Sodium 138 mmol/L N 135- 145 [phone] Potassium 3.6 mmol/L N 3.5-5.0 Chloride 106 [...] Egfr Non- 23.6 >60 Egfr 28.5 >60 33 Laboratory test 04/03/2018 [facility] TSH (Thyroid Stim 4.79 mcIU/mL N 0.34-5.60 finding [phone] Horm) Laboratory test 02/24/2018 In House Hemoglobin A1c 7.9 finding Laboratory test 12/10/2017 [facility] Surgical SEE RESULT 34 finding [phone] Pathology BELOW Laboratory test 11/24/2017 In House Hemoglobin A1c 8.0 finding Laboratory test 09/28/2017 [facility] Fructosamine 279 mcmol/L 200 - 285 35 finding [phone] Vitamin B12 752 pg/mL N 180-500 36 Methylmalonic Acid Mma 0.13 nmol/mL <=0.40 37 Laboratory test 08/28/2017 In House Hemoglobin A1c 8.1 finding Laboratory test 04/20/2017 [facility] PSA Screening 0.815 ng/mL 0- 4.0 38 finding [phone] Laboratory test 04/20/2017 [facility] Vitamin B12 262 pg/mL N 180- 910 39 finding [phone] Laboratory test 04/20/2017 In House Hemoglobin A1c 8.5 finding Laboratory test 04/14/2017 [facility] Alt (SGPT) 19 U/L N 7-52 finding [phone] Lipid Profile 04/14/2017 [facility] Triglycerides 97 mg/dL 40 (Trig/Chol/HDL) [phone] Cholesterol 122 mg/dL 41 HDL Cholesterol 30.5 mg/dL 42 LDL Cholesterol 72 mg/dL 43 Urine Microalbumin 04/14/2017 [facility] Ur Microalbumin 60.3 mg/L Random [phone] (mg/L) Urine Creatinine 125.15 mg/dL Urine Microalbumin/Creatinine 48.1 ug/mg High <31 Laboratory test 10/14/2016 In House Hemoglobin A1c 7.2 finding Laboratory test 04/21/2016 [facility] Alt (SGPT) 18 U/L N 7-52 44, 45 finding [phone] Lipid Profile 04/21/2016 [facility] Triglycerides 68 mg/dL N 46 (Trig/Chol/HDL) [phone] Cholesterol 111 mg/dL N 47 HDL Cholesterol 29.5 mg/dL N 48 LDL Cholesterol 68 mg/dL N 49 Basic Metabolic Panel 04/21/2016 [facility] Sodium 138 mmol/L N 133- 145 [phone] Potassium 4.4 mmol/L N 3.5-5.0 Chloride 106 mmol/L N 101-111 Co2 Carbon Dioxide 28 mmol/L N 22-32 Anion Gap 4 mmol/L N 2-11 Glucose 134 mg/dL High 70-100 Blood Urea Nitrogen 18 mg/dL N 6-24 Creatinine 1.09 mg/dL N 0.67-1.17 BUN/Creatinine Ratio 16.5 N 8-20 Calcium 9.3 mg/dL N 8.6-10.3 Egfr Non- 66.7 N >60 Egfr 85.8 N >60 50 Urine Microalbumin 04/21/2016 [facility] Urine Creatinine 197.10 mg/dL N Random [phone] Ur Microalbumin (mg/L) 35.5 mg/L N Urine Microalbumin/Creatinine 18.0 ug/mg N <31 Laboratory test 04/21/2016 In House Hemoglobin A1c 7.6 finding Laboratory test 12/12/2015 [facility] Surgical Pathology SEE RESULT 51, 52 finding [phone] BELOW Laboratory test 10/17/2015 [facility] Surgical Pathology SEE RESULT 53, 54 finding [phone] BELOW Laboratory test 10/16/2015 In House Hemoglobin A1c 7.2 finding Laboratory test 05/21/2015 [facility] PSA Screening 0.803 ng/mL N 0- 4.0 55 finding [phone] Urine Microalbumin 05/21/2015 [facility] Ur Microalbumin 41.0 mg/L N Random [phone] (mg/L) Urine Creatinine 148.81 mg/dL N Urine Microalbumin/Creatinine 27.5 ug/mg N <31 Laboratory test 05/21/2015 In House Hemoglobin A1c 7.8 finding Laboratory test 02/14/2015 In House Hemoglobin A1c 8.8 finding Laboratory test 12/12/2014 [facility] Surgical SEE RESULT 56 finding [phone] Pathology BELOW CBC Auto Diff 11/16/2014 [facility] White Blood Count 6.7 10^3/uL N 4.8-10. [phone] Red Blood Count 5.20 10^6/uL N [...] % 0.2 N Liver Function Panel 11/16/2014 [facility] Total Protein 6.6 g/dL N 6.4-8.9 [phone] Albumin 4.3 g/dL N 3.2-5.2 Globulin 2.3 g/dL N 2-4 Albumin/Globulin Ratio 1.9 N 1-3 Total Bilirubin 0.60 mg/dL N 0.2-1.0 Direct Bilirubin 0.10 mg/dL N 0.03-0.18 Indirect Bilirubin 0.5 mg/dL N 0.3-1.0 Alkaline Phosphatase 56 U/L N 34-104 Alt 20 U/L N 7-52 Ast 17 U/L N 13-39 Laboratory test 11/16/2014 [facility] Ferritin 42.3 ng/mL N 24-336 finding [phone] Laboratory test 11/13/2014 [facility] Alt (SGPT) 17 U/L N 7-52 finding [phone] Lipid Profile 11/13/2014 [facility] Triglycerides 116 mg/dL N 57 (Trig/Chol/HDL) [phone] Cholesterol 137 mg/dL N 58 HDL Cholesterol 29.9 mg/dL N 59 LDL Cholesterol 84 mg/dL N 60 Basic Metabolic Panel 11/13/2014 [facility] Sodium 138 mmol/L N 133- 145 [phone] Potassium 4.1 mmol/L N 3.5-5.0 Chloride 106 mmol/L N 101-111 Co2 Carbon Dioxide 27 mmol/L N 22-32 Anion Gap 5 mmol/L N 2-11 Glucose 128 mg/dL High 70-100 Blood Urea Nitrogen 20 mg/dL N 6-24 Creatinine 0.98 mg/dL N 0.67-1.17 BUN/Creatinine Ratio 20.4 High 8-20 Calcium 9.4 mg/dL N 8.6-10.3 Egfr Non- 75.6 N >60 Egfr 97.2 N >60 61 Laboratory test 11/13/2014 In House Hemoglobin A1c 8.6 finding Laboratory test 06/16/2014 In House Hemoglobin A1c 8.9 finding Urine Microalbumin 02/14/2014 [facility] Ur Microalbumin 29.0 mg/L N Random [phone] (mg/L) Urine Creatinine 154.78 mg/dL N Urine Microalbumin/Creatinine 18.7 N Less Than 31 Lipid Profile 02/14/2014 [facility] Triglycerides 100 mg/dL N 62 (Trig/Chol/HDL) [phone] Cholesterol 129 mg/dL N 63 HDL Cholesterol 32.4 mg/dL N 64 LDL Cholesterol 77 mg/dL N 65 Laboratory test finding 02/14/2014 In House Hemoglobin A1c 7.6 Urine Micro Inhouse 12/12/2013 In House Ua WBC - Ua RBC 1-2 Ua Casts - Ua Epi - Ua Other - Ua Glucose - Ua Bilirubin - Ua Ketones - Ua Specific [place] 1.020 Ua Blood mod Ua PH 6.0 Ua Protein tr Ua Urobilinogen - Ua Nitrite - Ua Leukocytes - Urinalysis Profile 11/21/2013 [facility] Urine Color Yellow N [phone] Urine Appearance Clear N Urine Specific [place] 1.017 N 1.010-1.030 Urine pH 5.0 N [...] Quantitative 199 finding CBC Auto Diff 10/04/2013 [facility] White Blood Count 6.3 N 4.8-10. [phone] 10^3/uL 8 Red Blood Count 5.22 10^6/uL [...] % 0 N Comp Metabolic Panel 10/04/2013 [facility] Sodium 140 mmol/L N 133- 145 [phone] Potassium 4.3 mmol/L N 3.7-5.6 Chloride 107 [...] 65.0 N >60 Egfr 83.6 N >60 66 Liver Function 10/04/2013 [facility] Direct Bilirubin 0.10 mg/dL N 0.03-0.18 Panel [phone] Indirect Bilirubin 0.5 mg/dL N 0.3-1.0 Laboratory 10/04/2013 [facility] Carcinoembryonic 7.1 ng/mL High 0.1- 5.0 67 test finding [phone] Antigen Hemoglobin A1c 9.1 % High Less than 6.0 68 Surgical 09/28/2013 [facility] S RUN DATE: 69 Pathology [phone] 10/03/ <SEE NOTE> Laboratory test 03/18/2013 In House Hemoglobin A1c 8.0 finding Occult 11/18/2012 In House Misc neg x3 Blood,Triple Laboratory test 11/16/2012 [facility] PSA Screening 0.9 ng/mL 0-4.0 70 finding [phone] CBC With Manual 11/16/2012 [facility] White Blood Count 6.4 10^3/uL 4.8-10. Diff [phone] Red Blood Count 5.07 10^6/uL 4.0-5.4 Hemoglobin [...] Hypochromasia 1+ Darline Cells 2+ Laboratory test finding 11/16/2012 [facility] Alt 23 U/L 14-54 71 [phone] Lipid Profile 11/16/2012 [facility] Triglycerides 74 mg/dL 40-200 (Trig/Chol/HDL) [phone] Cholesterol 153 mg/dL Less than 200 HDL Cholesterol 32 mg/dL Low 40-60 72 Cholesterol/HDL Ratio 4.8 Average High 1-4.44 LDL Cholesterol 106.2 High Less Than 100 73 Basic Metabolic Panel 11/16/2012 [facility] Sodium 138 mmol/L 133- 145 [phone] Potassium 4.3 mmol/L 3.5-5.0 Chloride 105 mmol/L 101-111 Co2 Carbon Dioxide 28.0 mmol/L 22-32 Anion Gap 5.0 mmol/L 2-11 Glucose 141 mg/dL High 70-100 Blood Urea Nitrogen 21 mg/dL 6-24 Creatinine 1.00 mg/dL 0.50-1.40 BUN/Creatinine Ratio 21.0 High 8-20 Calcium 9.3 mg/dL 8.1-9.9 Egfr Non- 74.3 >60 Egfr 95.6 >60 74 Urine Microalbumin 11/15/2012 [facility] Ur Microalbumin 86.0 mg/L 75 Random [phone] (mg/L) Urine Creatinine 233.4 mg/dL Urine Microalbumin/Creatinine 36.8 High Less Than 31 Laboratory test finding 11/15/2012 In House Hemoglobin A1c 7.6 Laboratory test finding 05/31/2012 In House Hemoglobin A1c 7.3 Lipid Profile 05/26/2012 [facility] Triglycerides 113 mg/dL 40-200 (Trig/Chol/HDL) [phone] Cholesterol 153 mg/dL Less than 200 HDL Cholesterol 34 mg/dL Low 40-60 76 Cholesterol/HDL Ratio 4.5 Average High 1-4.44 LDL Cholesterol 96.4 mg/dL Less Than 100 77 Laboratory test finding 05/26/2012 [facility] Alt 26 U/L 14-54 [phone] Laboratory test finding 11/10/2011 [facility] Alt (SGPT) 18 U/L 17- 63 [phone] Lipid Profile 11/10/2011 [facility] Triglyceride 127 mg/dL 40-200 (Trig/Chol/HDL) [phone] Cholesterol 200 mg/dL Less Than 200 78 High Density Lipoprotein 29 mg/dL Low 40-60 79 Cholesterol/HDL Ratio 6.90 AVERAGE High 1-4.97 Low Density Lipoprotein 146 mg/dL High Less Than 100 80 Urine Microalbumin 11/10/2011 [facility] Microalbumin (MG/L) 45.0 mg/L Random [phone] Urine Creatinine 134.4 mg/dL Tesfaye Alb/Creatinine Ratio 33.5 UG/MG High Less Than 30 81 Laboratory test 11/10/2011 In House Hemoglobin A1c 6.7 finding Laboratory test 12/13/2010 In House Hemoglobin A1c 6.8 finding Laboratory test 09/09/2010 [facility] Erythrocyte Sed Rate 4 MM/HR 0 -40 finding [phone] CPK (Creatine Kinase) 233 U/L High 0-200 C Reactive Protein < 0.5 mg/dL Less Than 0.5 Vitamin D, 25 09/09/2010 [facility] 25-Hydroxy Vitamin D2 <4.0 ng/mL () Hydroxy [phone] 25-Hydroxy Vitamin D3 28 ng/mL () 25-Hydroxy Vitamin D Total 28 ng/mL () 82 CBC Auto Diff 09/09/2010 [facility] White Blood Count 6.4 CUMM 4.8- 10.8 [phone] Red Cell Count 5.12 CUMM 4.6-6.2 Hemoglobin [...] Abs Basophils 0 0-0.2 Laboratory test 09/09/2010 [facility] TSH 1.81 MIU/ML 0.34-5.60 finding [phone] Lyme Western Blot 09/09/2010 [facility] Lyme Igg Negative Negative Specialty [phone] Western Blot Lyme Igg Bands Detected No bands detecte <SEE NOTE> kDa () 83 Lyme Igm Western Blot Negative Negative Lyme Igm Bands Detected No bands detecte <SEE NOTE> kDa () 84 Lyme Disease Interpretation . () 85 Laboratory test finding 03/27/2010 In House Hemoglobin A1c 6.8 Laboratory test finding 11/26/2009 [facility] PSA Screening 0.78 NG/ML 0-4 86 [phone] Glucose 55 mg/dL Low 70-100 87 Urine Microalbumin 11/26/2009 [facility] Microalbumin (MG/L) 38.0 mg/L Random [phone] Urine Creatinine 125.48 mg/dL [place] Alb/Creatinine Ratio 30.2 UG/MG Less Than 30 88 Laboratory test finding 11/26/2009 [facility] Alt (SGPT) 23 U/L 17- 63 [phone] Hemoglobin A1c 7.1 % High Less Than 6.0 89 Lipid Profile 11/26/2009 [facility] Triglyceride 102 mg/dL 40-200 (Trig/Chol/HDL) [phone] Cholesterol 167 mg/dL Less Than 200 90 High Density Lipoprotein 27 mg/dL Low 40-60 91 Cholesterol/HDL Ratio 6.19 AVERAGE High 1-4.97 Low Density Lipoprotein 120 mg/dL High Less Than 100 92 Lipid Profile 07/25/2009 [facility] Triglyceride 66 mg/dL 40-200 (Trig/Chol/HDL) [phone] Cholesterol 175 mg/dL Less Than 200 93 High Density Lipoprotein 27 mg/dL Low 40-60 94 Cholesterol/HDL Ratio 6.48 AVERAGE High 1-4.97 Low Density Lipoprotein 135 mg/dL High Less Than 100 95 Laboratory test finding 07/25/2009 [facility] Alt (SGPT) 17 U/L 17- 56 [phone] Glucose 117 mg/dL High 70-100 96 Hemoglobin A1c 6.9 % High Less Than 6.0 97 Laboratory test 12/13/2008 [facility] Hemoglobin A1c 7.0 % High Less Than 98, 99 finding [phone] 6.0 Glucose 109 mg/dL High 70-100 100 Lipid Profile 07/17/2008 [facility] Triglyceride 114 mg/dL 40-200 (Trig/Chol/HDL) [phone] Cholesterol 161 mg/dL Less Than 200 101 High Density Lipoprotein 29 mg/dL Low 40-60 102 Cholesterol/HDL Ratio 5.55 AVERAGE High 1-4.97 Low Density Lipoprotein 109 mg/dL High Less Than 100 103 Liver Function Panel 07/17/2008 [facility] Total Protein 7.0 GM/DL 6.2-8.0 [phone] Albumin 4.0 GM/DL 3.2-5.2 Globulin 3.0 GM/DL 2-4 Albumin/Globulin Ratio 1.3 1-3 Bilirubin Total 0.9 mg/dL 0.4-1.5 Bilirubin Direct 0.2 mg/dL 0.1-0.5 Indirect Bilirubin 0.7 mg/dL 0.1-0.75 Alkaline Phosphatase 64 U/L 39-117 Alt (SGPT) 32 U/L 17-63 Ast (Sgot) 29 U/L 12-42 Basic Metabolic Panel 07/17/2008 [facility] Sodium 139 mmol/L 135- 145 [phone] Potassium 3.6 mmol/L 3.5-5.0 Chloride 106 mmol/L 101-111 Co2 (Carbon Dioxide) 28.0 mmol/L 22-32 Anion Gap 5.0 mmol/L 2-11 104 Glucose 133 mg/dL High 70-100 105 BUN 22 mg/dL 6-24 Creatinine 1.11 mg/dL 0.50-1.40 One Over Creatinine 0.90 BUN/Creatinine Ratio 19.8 8-20 Calcium 9.5 mg/dL 8.1-9.9 106 Laboratory test 07/17/2008 [facility] Hemoglobin A1c 7.2 % High <6.0 107 finding [phone] Lipid Profile 04/24/2008 [facility] Triglyceride 118 mg/dL 40-200 (Trig/Chol/HDL) [phone] Cholesterol 236 mg/dL High Less Than 200 108 High Density Lipoprotein 31 mg/dL Low 40-60 109 Cholesterol/HDL Ratio 7.61 AVERAGE High 1-4.97 Low Density Lipoprotein 181 mg/dL High Less Than 100 110 Liver Function Panel 04/24/2008 [facility] Total Protein 5.8 GM/DL Low 6.2-8.0 [phone] Albumin 3.7 GM/DL 3.2-5.2 Globulin 2.1 GM/DL 2-4 Albumin/Globulin Ratio 1.8 1-3 Bilirubin Total 0.7 mg/dL 0.4-1.5 Bilirubin Direct < 0.1 mg/dL Low 0.1-0.5 Indirect Bilirubin (SEE NOTE) mg/dL 0.1-0.75 111 Alkaline Phosphatase 63 U/L 39-117 Alt (SGPT) 22 U/L 17-63 Ast (Sgot) 20 U/L 12-42 Laboratory test 04/24/2008 [facility] PSA Screening 0.67 NG/ML 0-4 finding [phone] Lipid Profile 05/27/2006 [facility] Cholesterol/HDL 6.00 AVERAGE High 1-4.97 (Trig/Chol/HDL) [phone] Ratio Cholesterol 180 mg/dL Less Than 200 112 Triglyceride 136 mg/dL 40-200 High Density Lipoprotein 30 mg/dL Low 40-60 113 Low Density Lipoprotein 123 mg/dL High Less Than 100 114 Laboratory test 05/27/2006 [facility] Alt (SGPT) 28 U/L -31 finding [phone] Lipid Profile 2005 [facility] Cholesterol/HD 5.39 AVERAGE High 1-4.97 (Trig/Chol/HDL) [phone] L Ratio Cholesterol 167 mg/dL Less Than 200 115 Triglyceride 152 mg/dL 40-200 High Density Lipoprotein 31 mg/dL Low 40-60 116 Low Density Lipoprotein 106 mg/dL High Less Than 100 117 Laboratory test finding 2005 [facility] Alt (SGPT) 20 U/L 17- 34 [phone] PSA Screening 0.81 NG/ML 0.00-4.00 118 Laboratory test 09/27/2004 [facility] TSH 1.64 MIU/ML 0.34-5.60 finding [phone] Basic Metabolic Panel 09/27/2004 [facility] Anion Gap 7.0 mmol/L 2- 11 119 [phone] BUN 16 mg/dL 6-24 Calcium 9.6 mg/dL 8.7-10.2 Chloride 106 mmol/L 101-111 Co2 (Carbon Dioxide) 28.0 mmol/L 22-32 Creatinine 1.1 mg/dL 0.5-1.4 Glucose 97 mg/dL 70-105 Potassium 4.6 mmol/L 3.5-5.0 Sodium 141 mmol/L 135-145 BUN/Creatinine Ratio 14.5 8-20 Laboratory test 09/27/2004 [facility] [place] 0.8 mmol/L 0.5-1.5 finding [phone] Thyroxine Free 09/27/2004 [facility] Free Thyroxine 0.55 ng/dL Low 0.58-1.64 [phone] Laboratory test 09/27/2004 [facility] Alt (SGPT) 21 U/L 17-63 finding [phone] Lipid Profile 09/27/2004 [facility] Cholesterol/HD 5.61 AVERAGE High 1-4.97 (Trig/Chol/HDL) [phone] L Ratio Cholesterol 174 mg/dL Less Than 200 120 Triglyceride 113 mg/dL 40-200 High Density Lipoprotein 31 mg/dL Low 40-60 121 Low Density Lipoprotein 120 mg/dL High Less Than 100 122 Lipid Profile 04/22/2004 [facility] Cholesterol/HDL 4.91 1-4.97 (Trig/Chol/HDL) [phone] Ratio AVERAGE Cholesterol 172 mg/dL Less Than 200 123 Triglyceride 109 mg/dL 40-200 High Density Lipoprotein 35 mg/dL Low 40-60 124 Low Density Lipoprotein 115 mg/dL High Less Than 100 125 Laboratory test finding 04/22/2004 [facility] Alt (SGPT) 26 U/L 17- 14 [phone] PSA Screening 0.5 NG/ML 0-4 126 Liver Function Panel 11/17/2003 [facility] Albumin/Globulin Ratio 1.6 1-3 [phone] Albumin 3.9 GM/DL 3.6-5.4 Alkaline Phosphatase 55 U/L 39-117 Alt (SGPT) 16 U/L Low 17-63 Ast (Sgot) 19 U/L 12-42 Bilirubin Direct < 0.1 mg/dL Low 0.1-0.5 Globulin 2.4 GM/DL 2-4 127 Bilirubin Total 0.7 mg/dL 0.4-1.5 Total Protein 6.3 GM/DL 6.2-8.1 1 Troponin-I testing on Plasma Separator Tubes (PST) has a known false positive rate of 0.20-0.40%. All positive troponins reflex immediate secondary confirmatory testing. 2 Lactation Coordinator: [id number] 3 SEE RESULT BELOW Name: LEFTY HARDEN : [address]: Rocio Garza MD Acct: [id number] Unit: [id number] AGE: 72 Location: ED Re05/23/18 SEX: M Status: REG ER SPEC: [id number] ROSCOE: 05/23/18 [facility] DR: Jarred Garza MD REQ: [id number] RECD: 05/23/18 STATUS: LUDWIG AIKEN DR: Tiago Tam MD _ SOURCE: NASAL SPDESC: ORDERED: Flu A B Request Procedure Result Reported Site Rapid Influenza A B Request Final 02/17/19- 1635 ML Specimen received for Influenza A/B Molecular testing * ML - Main Lab . END OF REPORT DEPARTMENT OF PATHOLOGY, [address] [place] [address] Miguel A Pino M.D. Director [facility] # [id number] Please note: The following may produce a false positive D Dimer test: - Rheumatoid factor greater than 60 IU/ml - Plasma hemoglobin greater than 0.05 gm/dl - Bilirubin greater than 50 mg/dl - Lipids greater than 1000 mg/dl - FDP greater than 20 ug/ml 5 [facility] Severe Sepsis and Septic Shock Management Bundle Measure requires all lactic acids initially measuring >2.0 mmol/L be repeated. 6 Because ethnic data is not always [...] 5 Kidney failure <15 (or dialysis) 7 Troponin-I testing on Plasma Separator Tubes (PST) has a known false positive rate of 0.20-0.40%. All positive troponins reflex immediate secondary confirmatory testing. 8 SEE RESULT BELOW Name: LEFTY HARDEN : [address]: Jose Guadalupe Landis MD Acct: [id number] Unit: [id number] AGE: 72 Location: [place] [address] Re05/13/18 SEX: M Status: ADM IN SPEC: [id number] ROSCOE: 05/14/[address]: Addison Daly MD REQ: [id number] RECD: 05/14/18 STATUS: LUDWIG AIKEN DR: Tiago Tam MD _ SOURCE: URINE SPDESC: ORDERED: Urine Culture Procedure Result Reported Site Urine Culture Final 05/15/18- 1027 ML No Growth (<1,000 CFU/mL) * ML - Main Lab . END OF REPORT DEPARTMENT OF PATHOLOGY, [address] [place] [address] Miguel A Pino M.D. Director [facility] # [id number] 9 Because ethnic data is not always [...] 5 Kidney failure <15 (or dialysis) 10 Because ethnic data is not always [...] 5 Kidney failure <15 (or dialysis) 11 Troponin-I testing on Plasma Separator Tubes (PST) has a known false positive rate of 0.20-0.40%. All positive troponins reflex immediate secondary confirmatory testing. 12 [facility] Severe Sepsis and Septic Shock Management Bundle Measure requires all lactic acids initially measuring >2.0 mmol/L be repeated. 13 SEE RESULT BELOW Name: LEFTY HARDEN : [address]: Rocio Garza MD Acct: [id number] Unit: [id number] AGE: 72 Location: ED Re05/12/18 SEX: M Status: DEP ER SPEC: [id number] ROSCOE: 05/12/18 [facility] DR: Addison Daly MD REQ: [id number] RECD: 05/12/18 STATUS: LUDWIG AIKEN DR: Tiago Tam MD _ SOURCE: URINE [facility]: ORDERED: Urine Culture Procedure Result Reported Site Urine Culture Final 05/13/18- 1220 ML No Growth (<1,000 CFU/mL) * ML - Main Lab . END OF REPORT DEPARTMENT OF PATHOLOGY, [address] [place] [address] Miguel A Pino M.D. Director [facility] # [id number] 14 Because ethnic data is not always readily [...] 15-29 5 Kidney failure <15 (or dialysis) 15 Desirable: <150 Borderline High: 150-199 High: 200-499 Very High: >500 16 Desirable: <200 Borderline High: 200-239 High: >239 17 Low: <40 Desirable: 40-60 High: >60 18 Desirable: <100 Near Optimal: 100-129 Borderline High: 130-159 High: 160-189 Very High: >189 19 Because ethnic data is not always [...] 5 Kidney failure <15 (or dialysis) 20 Because ethnic data is not always [...] 5 Kidney failure <15 (or dialysis) 21 SEE RESULT BELOW Name: LEFTY HARDEN : [address]: Matt Marti MD Acct: [id number] Unit: [id number] AGE: 72 Location: ED Re05/03/18 SEX: M Status: DEP ER SPEC: [id number] ROSCOE: 05/03/18 [facility] [address]: Eliot Guerra MD REQ: [id number] RECD: 05/03/18 STATUS: LUDWIG AIKEN DR: [facility] Tiago Tam MD _ SOURCE: URINE SPDESC: ORDERED: Urine Culture Procedure Result Reported Site Urine Culture Final 05/05/18- 1136 ML No Growth (<1,000 CFU/mL) * - [facility] Lab . END OF REPORT DEPARTMENT OF PATHOLOGY, [address] [place] [address] Miguel A Pino M.D. Director [facility] # [id number] 22 HS aware 23 Because ethnic data is not always readily [...] 15-29 5 Kidney failure <15 (or dialysis) 24 Lactation Coordinator: [id number] 25 Lactation Coordinator: [id number] 26 SEE RESULT BELOW Name: LEFTY HARDEN : [address]: Michoacano Ware MD Acct: [id number] Unit: [id number] AGE: 72 Location: [place] [address] Re04/11/18 SEX: M Status: ADM Janice SPEC: [id number] ROSCOE: 04/11/18-12[address] [facility] [address]: Addison Daly MD REQ: [id number] RECD: 04/11/18 STATUS: LUDWIG AIKEN DR: Tiago Tam MD _ SOURCE: URINE [facility]: ORDERED: Urine Culture Procedure Result Reported Site Urine Culture Final 04/12/18- 1205 ML No Growth (<1,000 CFU/mL) * ML - Main Lab . END OF REPORT DEPARTMENT OF PATHOLOGY, [address] [place] [id number] Miguel A Pino M.D. Director [facility] # [id number] 27 Because ethnic data is not always readily [...] 15-29 5 Kidney failure <15 (or dialysis) 28 Critical Result GLU:44 Called to [id number] at: 13:26:52 by:[id number] Read back by:[id number] 29 Troponin-I testing on Plasma Separator Tubes (PST) has a known false positive rate of 0.20-0.40%. All positive troponins reflex immediate secondary confirmatory testing. 30 [facility] Severe Sepsis and Septic Shock Management Bundle Measure requires all lactic acids initially measuring >2.0 mmol/L be repeated. 31 Because ethnic data is not always [...] 5 Kidney failure <15 (or dialysis) 32 SEE RESULT BELOW Name: LEFTY HARDEN : [address]: Matt Marti MD Acct: [id number] Unit: [id number] AGE: 72 Location: ED Re04/03/18 SEX: M Status: DEP ER SPEC: [id number] ROSCOE: 04/03/[address]: Matt Marti MD REQ: [id number] RECD: 04/03/18 STATUS: LUDWIG AIKEN DR: Tiago Tam MD _ SOURCE: URINE SPDESC: ORDERED: Urine Culture Procedure Result Reported Site Urine Culture Final 04/05/18- 0946 ML No Growth (<1,000 CFU/mL) * ML - [facility] Lab . END OF REPORT DEPARTMENT OF PATHOLOGY, [address] [place] [address] Miguel A Pino M.D. Director [facility] # [id number] 33 Because ethnic data is not always readily [...] 15-29 5 Kidney failure <15 (or dialysis) 34 SEE RESULT BELOW Name: LEFTY HARDEN : [address]: Romeo Chavarria DO Acct: [id number] Unit: [id number] AGE: 72 Location: ENDO Re12/10/17 SEX: M Status: REG REF SPEC: [id number] ROSCOE: 12/10/17- SUBM DR: Romeo Chavarria DO REQ: [id number] RECD: 12/10/17-1324 STATUS: LAN AIKEN DR: Tiago [...] 1242 END OF REPORT DEPARTMENT OF PATHOLOGY, [address] [place] [address] Miguel A Pino M.D. Director [facility] # [id number] 35 Test Performed by: [facility] - [address] [address] 36 Normal Range 180 to 914 Indeterminate Range 145 to 180 Deficient Range <145 37 ADDITIONAL INFORMATION This test was developed and its performance characteristics determined by [facility] in a manner consistent with CLIA requirements. This test has not been cleared or approved by the U.S. Food and Drug Administration. Test Performed by: [facility] - [address] [address] 38 Serum levels of PSA measured using the Roxanne [place] DXI Hybritech immunoassay should not be interpreted as absolute evidence of the presence or absence of disease. The PSA value should be used in conjunction with other pertinent clinical diagnostic procedures. The values obtained with different assay methods or kits cannot be used interchangeably. 39 Normal Range 180 to 914 Indeterminate Range 145 to 180 Deficient Range <145 40 Desirable: <150 Borderline High: 150-199 High: 200-499 Very High: >500 41 Desirable: <200 Borderline High: 200-239 High: >239 42 Low: <40 Desirable: 40-60 High: >60 43 Desirable: <100 Near Optimal: 100-129 Borderline High: 130-159 High: 160-189 Very High: >189 44 FASTING 12 HOUR 45 FASTING 12 HOUR 46 Desirable <150 Borderline high 150-199 High 200-499 Very High >500 47 Desirable <200 Borderline high 200-239 High >239 48 Low <40 Desirable: 40-60 High: >60 49 Desirable: <100 mg/dL Near Optimal: 100-129 mg/dL Borderline High: 130-159 mg/dL High: 160-189 mg/dL Very High: >189 mg/dL 50 Because ethnic data is not always readily [...] 15-29 5 Kidney failure <15 (or dialysis) 51 [id number] 52 SEE RESULT BELOW Name: LEFTY HARDEN : [address]: Tiago Tam MD Acct: [id number] Unit: [id number] AGE: 70 Location: [facility] Re12/12/15 SEX: M Status: REG REF SPEC: [id number] ROSCOE: 12/12/15-[address]: Tiago Tam MD REQ: [id number] RECD: 12/12/153565 STATUS: SOUT _ ORDERED: LEVEL IV COMMENTS: [id number] FINAL DIAGNOSIS Skin, right mid forearm, excision: -- Scar, completely excised. -- No evidence of residual squamous cell carcinoma. COMMENT: The previous lesion at this site ([id number]) has been completely excised. CLINICAL HISTORY Presents [...] performed at Main Lab DEPARTMENT OF PATHOLOGY, [address] [place] [address] Miguel A Pino M.D. Director [facility] # [id number] 54 SEE RESULT BELOW Name: LEFTY HARDEN : [address]: Tiago aTm MD Acct: [id number] Unit: [id number] AGE: 70 Location: [facility] Re10/17/15 SEX: M Status: REG REF SPEC: [id number] ROSCOE: 10/17/15-16[address] [facility] [address]: Tiago Tam MD REQ: [id number] RECD: 10/18/15-1255 STATUS: SOUT _ ORDERED: LEVEL IV COMMENTS: [id number] FINAL DIAGNOSIS Skin, right forearm, biopsy: -- [...] performed at Main Lab DEPARTMENT OF PATHOLOGY, [address] [place] [address] Miguel A Pino M.D. Director [facility] # [id number] 55 Serum levels of PSA measured using the Roxanne [place] DXI Hybritech immunoassay should not be interpreted as absolute evidence of the presence or absence of disease. The PSA value should be used in conjunction with other pertinent clinical diagnostic procedures. The values obtained with different assay methods or kits cannot be used interchangeably. 56 SEE RESULT BELOW Name: LEFTY HARDEN : [address]: Constantin Hernandez MD Acct: [id number] Unit: [id number] AGE: 69 Location: ENDO Re12/12/14 SEX: M Status: REG REF SPEC: [id number] ROSCOE: 12/12/14- SUBM DR: Constantin Hernandez MD REQ: [id number] RECD: 12/12/146069 STATUS: LAN AIKEN DR: Tiago Tam MD [...] performed at Main Lab DEPARTMENT OF PATHOLOGY, [address] [place] [address] Miguel A Pino M.D. Director [facility] # [id number] 57 Desirable <150 Borderline high 150-199 High 200-499 Very High >500 58 Desirable <200 Borderline high 200-239 High >239 59 Low <40 Desirable: 40-60 High: >60 60 Desirable: <100 mg/dL Near Optimal: 100-129 mg/dL Borderline High: 130-159 mg/dL High: 160-189 mg/dL Very High: >189 mg/dL 61 Because ethnic data is not always readily [...] 15-29 5 Kidney failure <15 (or dialysis) 62 Desirable <150 Borderline high 150-199 High 200-499 Very High >500 63 Desirable <200 Borderline high 200-239 High >239 64 Low <40 Desirable: 40-60 High: >60 65 Desirable <100 Near Optimal 100-129 Borderline high 130-159 High 160-189 Very High >189 66 Because ethnic data is not always readily [...] 15-29 5 Kidney failure <15 (or dialysis) 67 Nonsmokers: < 2.9 ng/mL Some smokers may have elevated CEA, usually <5.0 ng/mL. Serum markers are not specific for malignancy, and values may vary by method. The testing method is an immunoenzymatic assay rn nursery by [employer] performed on Omgili DXI 600. Do not interpret serum CEA levels as absolute evidence of the presence or the absence of malignant disease. Use serum CEA in conjunction with information from the clinical evaluation of the patient and other diagnostic procedures. 68 Therapeutic target for the treatment of diabetes Mellitus patients is <7% HBA1C, and in selective patients <6.0%.Please refer to [place] [employer] Diabetic care guidelines for further information. 69 RUN DATE: 10/03/13 [facility] LAB LIVE PAGE 1 RUN TIME: 9274 [address] [facility], [place], [place] [address] Specimen Inquiry Name: LEFTY HARDEN : [address]: Constantin Hernandez MD Acct: [id number] Unit: [id number] AGE: 68 Location: [facility] Re09/28/13 SEX: M Status: REG REF SPEC: [id number] ROSCOE: 09/28/13- SUBM DR: Constantin Hernandez MD REQ: [id number] RECD: 09/28/13 STATUS: LAN AIKEN DR: Tiago [...] performed at Main Lab DEPARTMENT OF PATHOLOGY, [facility] [place] [address] Miguel A Pino M.D. Director [facility] # [id number] RUN DATE: 10/03/13 [facility] LAB LIVE PAGE 2 RUN TIME: 15[address] [facility] [place], [place] [address] Specimen Inquiry Patient: LEFTY HARDEN [id number] (Continued) CLINICAL HISTORY (Continued) CLINICAL HISTORY Screening [...] performed at Main Lab DEPARTMENT OF PATHOLOGY, [address] [place] [address] Miguel A Pino M.D. Director [facility] # [id number] 70 Serum levels of PSA measured using the Roxanne Michelle DXI Hybritech immunoassay should not be interpreted as absolute evidence of the presence or absence of disease. The PSA value should be used in conjunction with other pertinent clinical diagnostic procedures. The values obtained with different assay methods or kits cannot be used interchangeably. 71 FASTING 72 HDL Interpretation: Undesirable: High Risk: Less than 40 mg/dL Desirable: Low Risk: Greater than 60 mg/dL 73 LDL Interpretation: Low Risk Optimal Level: LDL Less than 100 mg/dL Near or Above Optimal: LDL 100-129 mg/dL Borderline High Risk: LDL 130-159 mg/dL High Risk: LDL 160-189 mg/dL Very High Risk: LDL Greater than 189 mg/dL 74 Because ethnic data is not always readily [...] 15-29 5 Kidney failure <15 (or dialysis) 75 Microalbuminuria in a random sample is defined as: Microalbumin/Creatinine ratio of 30-299 ug/mg. 76 HDL Interpretation: Undesirable: High Risk: Less than 40 MG/DL Desirable: Low Risk: Greater than 60 MG/DL 77 LDL Interpretation: Low Risk Optimal Level: LDL Less than 100 MG/DL Near or Above Optimal: LDL 100-129 MG/DL Borderline High Risk: LDL 130-159 MG/DL High Risk: LDL 160-189 MG/DL Very High Risk: LDL Greater than 189 MG/DL 78 CHOLESTEROL INTERPRETATION: Desirable: Less than 200 [...] Risk: LDL Greater than 189 MG/DL 81 MICROALBUMINURIA IN A RANDOM SAMPLE IS DEFINED : MICROALBUMIN/CREATININE RATIO OF 30-299 ug/mg. . 82 -- REFERENCE VALUE -- 25-HYDROXY D TOTAL (D2+D3) Optimum levels in the normal population are 25-80 Test Performed by: [facility] Dpt of Lab Med and Pathology [address] [place] [id number] Visual Presentation Manager: French Blackwell III, M.D. 83 No bands detected 84 No bands detected 85 Specific serologic response to B. burgdorferi infection [...] Test performed by immunoblot. Test Performed by: [facility] Dpt of Lab Med and Pathology [address] [place], [place] [id number] Visual Presentation Manager: French Balckwell III, M.D. 86 * SERUM LEVELS OF PSA MEASURED USING THE ROXANNE MICHELLE ACCESS HYBRITECH IMMUNOASSAY SHOULD NOT BE INTERPRETED ABSOLUTE EVIDENCE OF THE PRESENCE OR ABSENCE OF DISEASE. THE PSA VALUE SHOULD BE USED IN CONJUNCTION WITH OTHER PERTINENT CLINICAL DIAGNOSTIC PROCEDURES. 87 Note change in reference range as of 11/25/07. The change was based on recommendations from the [place] [employer]. 88 MICROALBUMINURIA IN A RANDOM SAMPLE IS DEFINED : MICROALBUMIN/CREATININE RATIO OF 30-299 ug/mg. . 89 THERAPEUTIC TARGET FOR THE TREATMENT OF DIABETES MELLITUS PATIENTS IS <7% HBA1C, AND IN SELECTIVE PATIENTS <6.0%. PLEASE REFER TO [place] [employer] DIABETIC CARE GUIDELINES FOR FURTHER INFORMATION. 90 CHOLESTEROL INTERPRETATION: Desirable: Less than 200 MG/DL Borderline-High Risk: 200-239 MG/DL High-Risk: 240 MG/DL and over 91 HDL INTERPRETATION: Undesirable: High Risk: Less than 40 MG/DL Desirable: Low Risk: Greater than 60 MG/DL 92 LDL INTERPRETATION: Low Risk Optimal Level: LDL Less than 100 MG/DL Near or Above Optimal: LDL 100-129 MG/DL Borderline High Risk: LDL 130-159 MG/DL High Risk: LDL 160-189 MG/DL Very High Risk: LDL Greater than 189 MG/DL 93 CHOLESTEROL INTERPRETATION: Desirable: Less than 200 MG/DL Borderline-High Risk: 200-239 MG/DL High-Risk: 240 MG/DL and over 94 HDL INTERPRETATION: Undesirable: High Risk: Less than 40 MG/DL Desirable: Low Risk: Greater than 60 MG/DL 95 LDL INTERPRETATION: Low Risk Optimal Level: LDL Less than 100 MG/DL Near or Above Optimal: LDL 100-129 MG/DL Borderline High Risk: LDL 130-159 MG/DL High Risk: LDL 160-189 MG/DL Very High Risk: LDL Greater than 189 MG/DL 96 Note change in reference range as of 11/25/07. The change was based on recommendations from the [place] [employer]. 97 THERAPEUTIC TARGET FOR THE TREATMENT OF DIABETES MELLITUS PATIENTS IS <7% HBA1C, AND IN SELECTIVE PATIENTS <6.0%. PLEASE REFER TO [place] DIABETIC CARE GUIDELINES FOR FURTHER INFORMATION. 98 FASTING 99 THERAPEUTIC TARGET FOR THE TREATMENT OF DIABETES MELLITUS PATIENTS IS <7% HBA1C, AND IN SELECTIVE PATIENTS <6.0%. PLEASE REFER TO [employer] DIABETIC CARE GUIDELINES FOR FURTHER INFORMATION. 100 Note change in reference range as of 11/25/07. The change was based on recommendations from the [place] [employer]. 101 CHOLESTEROL INTERPRETATION: Desirable: Less than 200 MG/DL Borderline-High Risk: 200-239 MG/DL High-Risk: 240 MG/DL and over 102 HDL INTERPRETATION: Undesirable: High Risk: Less than 40 MG/DL Desirable: Low Risk: Greater than 60 MG/DL 103 LDL INTERPRETATION: Low Risk Optimal Level: LDL Less than 100 MG/DL Near or Above Optimal: LDL 100-129 MG/DL Borderline High Risk: LDL 130-159 MG/DL High Risk: LDL 160-189 MG/DL Very High Risk: LDL Greater than 189 MG/DL 104 Anion gap measurement may be of limited value in the presence of any alkalosis, especially in a combined acid base disorder. . 105 Note change in reference range as of 11/25/07. The change was based on recommendations from the [place] [employer]. 106 Please note change in reference range effective 07 . 107 THERAPEUTIC TARGET FOR THE TREATMENT OF DIABETES MELLITUS PATIENTS IS <7% HBA1C, AND IN SELECTIVE PATIENTS <6.0%. PLEASE REFER TO [employer] DIABETIC CARE GUIDELINES FOR FURTHER INFORMATION. 108 CHOLESTEROL INTERPRETATION: Desirable: Less than 200 MG/DL Borderline-High Risk: 200-239 MG/DL High-Risk: 240 MG/DL and over 109 HDL INTERPRETATION: Undesirable: High Risk: Less than 40 MG/DL Desirable: Low Risk: Greater than 60 MG/DL 110 LDL INTERPRETATION: Low Risk Optimal Level: LDL Less than 100 MG/DL Near or Above Optimal: LDL 100-129 MG/DL Borderline High Risk: LDL 130-159 MG/DL High Risk: LDL 160-189 MG/DL Very High Risk: LDL Greater than 189 MG/DL 111 UNABLE TO CALCULATE IND.BILI D.BILI IS <0.1 112 Classification: Desirable . 113 Classification: Low . 114 CALCULATED LDL APPROXIMATES THE VALUE OF A DIRECT LDL MEASUREMENT. Classification: Near or above optimal . 115 Classification: Desirable . 116 Classification: Low . 117 CALCULATED LDL APPROXIMATES THE VALUE OF A DIRECT LDL MEASUREMENT. Classification: Near or above optimal . 118 * SERUM LEVELS OF PSA MEASURED USING THE ROXANNE Xtium ACCESS HYBRITECH IMMUNOASSAY SHOULD NOT BE INTERPRETED ABSOLUTE EVIDENCE OF THE PRESENCE OR ABSENCE OF DISEASE. THE PSA VALUE SHOULD BE USED IN CONJUNCTION WITH OTHER PERTINENT CLINICAL DIAGNOSTIC PROCEDURES. 119 Anion gap measurement may be of limited value in the presence of any alkalosis, especially in a combined acid base disorder. . 120 Classification: Desirable . 121 Classification: Low . 122 CALCULATED LDL APPROXIMATES THE VALUE OF A DIRECT LDL MEASUREMENT. Classification: Near or above optimal . 123 Classification: Desirable . 124 Classification: Low . 125 CALCULATED LDL APPROXIMATES THE VALUE OF A DIRECT LDL MEASUREMENT. Classification: Near or above optimal . 126 * SERUM LEVELS OF PSA MEASURED USING THE ROXANNE Xtium ACCESS HYBRITECH IMMUNOASSAY SHOULD NOT BE INTERPRETED ABSOLUTE EVIDENCE OF THE PRESENCE OR ABSENCE OF DISEASE. THE PSA VALUE SHOULD BE USED IN CONJUNCTION WITH OTHER PERTINENT CLINICAL DIAGNOSTIC PROCEDURES. A PSA value in the range of 0.1 to 0.6 ng/ml is indeterminate if being used as an indicator of recurrent or residual disease. . 127 UNABLE TO CALCULATE IND.BILI D.BILI IS <0.1 Procedures Date Code Description Status 01/19/2018 59179 I & D Abscess Simple Completed 12/10/2017 67403234 Colonoscopy Completed 10/26/2017 970856923 Diabetic Retinal Eye Exam Completed 08/28/2017 62412 Electrocardiogram Complete Completed 04/20/2017 720322058 Diabetic Foot Exam Completed 04/20/2017 79600 Electrocardiogram Complete Completed 04/21/2016 17172 Electrocardiogram Complete Completed 12/11/2015 17235 Excise Malig Lesion .6-1CM Trunk/Arm/Leg Completed 10/17/2015 60208 Shave Skin Lesion .6-1CM Trunk/Arm/Leg Completed 11/13/2014 46810 Electrocardiogram Complete Completed 10/19/2013 74102 X-Ray Chest Two Views Completed 10/19/2013 81839 Electrocardiogram Complete Completed 11/15/2012 38479 Electrocardiogram Complete Completed 11/15/2012 31622 X-Ray Chest Two Views Completed 11/15/2012 90075 Destruction Premalignant Skin Lesions Completed 09/01/2012 22349 X-Ray Chest Two Views Completed 11/10/2011 44405 Electrocardiogram Complete Completed 11/10/2011 86349 Remove Impact Cerumen Requiring Instrument, Unilateral Completed 12/13/2010 83251 Visual Acuity Screening Test Completed 03/27/2010 15353 Electrocardiogram Complete Completed 01/01/2010 0 Payment Completed 09/27/2004 88250 Electrocardiogram Complete Completed 04/22/2004 51282 Remove Impact Cerumen Requiring Instrument, Unilateral Completed Encounters Type Date Location Provider Dx Diagnosis Office Visit 05/31/2018 Main Office Tiago Tam, R80.9 Proteinuria, 2:30p M.D. unspecified F43.23 Adjustment disorder with mixed anxiety and depressed mood E11.21 Type 2 diabetes mellitus with diabetic nephropathy N04.1 Nephrotic syndrome w focal and segmental glomerular lesions Office Visit 05/11/2018 4:45p Main Office Tiago Tam, E11.21 Type 2 diabetes M.D. mellitus with diabetic nephropathy R60.1 Generalized edema F41.9 Anxiety disorder, unspecified R80.9 Proteinuria, unspecified R06.00 Dyspnea, unspecified N04.9 Nephrotic syndrome with unspecified morphologic changes Office Visit 04/20/2018 10:00a Main Office Tiago Tam, N04.9 Nephrotic syndrome M.D. with unspecified morphologic changes R60.1 Generalized [...] diabetes M.D. 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 general adult medical exam w abnormal findings E11.65 Type 2 diabetes mellitus with hyperglycemia E11.21 Type 2 diabetes mellitus with diabetic nephropathy Z41.8 Encntr for oth proc for purpose oth than remedy [facility] M65.312 Trigger thumb, left thumb K14.6 Glossodynia Z23 Encounter for immunization Z71.89 Other specified counseling Z79.4 longterm (current) use of insulin Office Visit 04/20/2017 [...] Cough Office Visit 04/21/2016 9:30a Main Office Tiago Tam.65 Type 2 diabetes Cha Ordoñez mellitus with hyperglycemia F41.9 Anxiety disorder, unspecified E78.00 Pure hypercholesterolemia, unspecified Z23 Encounter for immunization Z41.8 Encntr for oth proc for purpose oth than [facility] 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 carcinoma skin/ right upper limb, inc shoulder E11.65 Type 2 diabetes mellitus with hyperglycemia F41.9 Anxiety disorder, unspecified Office Visit 10/16/2015 8:30a Main Office Anel E11.65 Type 2 diabetes [...] Encntr for oth proc for purpose oth [facility] Office Visit 11/13/2014 3:30p Main Office Anel, 250.42 Diabetes W/ Renal Cha Ordoñez Manifestations [...] Unspec Office Visit 10/26/2013 4:45p Main Office Anel, 250.42 Diabetes W/ Renal Cha Ordoñez Manifestations [...] Organism Unspec Office Visit 05/31/2012 Main Office Anel, 272.0 Hypercholesterolemia Pure 4:30p Cha Ordoñez 250.02 Diabetes Mellitus W/O Compl Type II Or Unspec Type Uncontrol 530.81 Esophageal Reflux V76.51 Special Screening For Malignant Neoplasms Colon Office Visit 11/10/2011 Main Office Anel, 272.0 Hypercholesterolemia Pure 9:45a Cha Ordoñez 250.00 [...] Tendinitis Achilles Office Visit 07/25/2009 Main Office Anel 272.0 Hypercholesterolemia Pure 9:30a Cha Ordoñez 790.6 Abnormal Blood Chemistry Other Office Visit 12/12/2008 Main Office Anel 790.6 Abnormal Blood Chemistry 1:15p Cha Ordoñez Other Office Visit 07/18/2008 Main Office Anel 272.0 Hypercholesterolemia Pure 9:30a Cha Ordoñez 790.6 Abnormal Blood Chemistry Other Office Visit 04/24/2008 Main Office Maryseli, 272.0 Hypercholesterolemia Pure 2:00p Cha Ordoñez 300.02 [...]
[2018-06-10] MEDS ORDERED: predniSONE TAB* 20 MG PO SCH (12:56)
[2018-06-10] MEDS ORDERED: methylPREDNISolone 125 MG* 2 ML VIAL IV SCH (13:00)
[2018-06-10] MEDS ORDERED: Dextrose 50% Syringe 50 ML* 25 GM/50 ML SYRINGE IV PUSH PRN (13:06)
[2018-06-10] MEDS ORDERED: ALBUMIN HUMAN 25% IV ONE (14:00)
[2018-06-10] MEDS: Atorvastatin* 40 MG TAB PO SCH (14:33)
[2018-06-10] MEDS: Nystatin TOP POWDER* 15 GM BTL TOPICAL SCH ×2 (14:33→21:39)
--- NOTE | 2018-06-10 14:35 | HP ---
ADMITTING HISTORY AND PHYSICAL: DATE OF ADMISSION: 06/10/18 CHIEF COMPLAINT: Increased weight gain. HISTORY OF PRESENT ILLNESS: The patient is a 72-year-old gentleman with history of diabetes, anxiety, and recently diagnosed nephrotic syndrome likely secondary to FSGS, who was recently admitted and discharged on 05/13/18 to 05/20/18, at which point, he was admitted for shortness of breath due to anasarca and was given IV albumin infusions with IV Lasix and has diuresed well. Since admission, he mentions that he has gained weight and initially the mentioned that he is unable to get up out of bed. However, further clarification suggests that he possibly did not want to get himself out of bed. However, the patient did have some significant weight gain and is currently anasarcic. I have also spoken with Dr. Em to touch base in regard to his assessment and plan. Dr. Em called me from his office where he was evaluating the patient and requests that Mr Harden be directly admitted for IV albumin with forced diuresis protocol. PAST MEDICAL HISTORY: 1. 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 2. Diabetes mellitus type 2. 3. History of anxiety. 4. BPH. 5. Hyperlipidemia. PAST SURGICAL HISTORY: Status post colectomy of the cecum back in 2013. HOME MEDICATIONS: 1. Atorvastatin. 2. Tamsulosin. 3. NPH. 4. Clonazepam 5. Ondansetron 6. Vitamin B12. 7. Diphenhydramine. 8. Candesartan. 9. Furosemide. FAMILY HISTORY: He has mother with lymphoma and father with coronary artery disease and of [place] at the age of 60. SOCIAL HISTORY: The patient does use tobacco products nor use alcohol. 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 REVIEW OF SYSTEMS: The patient denied any current headaches, dizziness, fever, chills, nausea, vomiting, chest pain, shortness of breath, abdominal pain, diarrhea, constipation, pain and/or increased frequency in urination, myalgias, arthralgias, throat pain, or new skin lesions. The rest of the 14-point review of systems are otherwise unremarkable. PE: GEN AP:AAOx3 HEAD: NC/AT, PERRLA NECK: Soft, supple, (-)JVD HEART: S1S2 WNL, RRR, No MRG CHEST: CTA, BL GAE, No W/R/R ABD: Soft, ND/NT, NABS 4xQ, notable blood in allan EXT: No C/C/E SKIN: Warm to touch DIAGNOSTIC STUDIES/LABORATORY DATA: Most recent pertinent laboratories done during this admission: Laboratories are still pending and that have been ordered on direct admission. Chest x-ray is pending. ASSESSMENT AND PLAN: The patient is a 72-year-old gentleman with history of diabetes, anxiety as well nephrotic syndrome likely due to focal segmental glomerulosclerosis, being admitted for increasing weight gain due to anasarca. 1. Anasarca likely due to focal segmental glomerulosclerosis nephrotic syndrome and we will give the patient albumin 75 g IV bolus of albumin, followed by 3 g per hour continuous albumin drip. After 1 hour of being in the drip, the patient will be started on Lasix 40 mg IV twice daily as discussed with Dr. Em. We will also start the patient on high dose Solu-Medrol at 500 mg IV daily for at least 3 days and will defer. 2. Hypertension. We will continue sartan and given his candesartan is non- formulary, we will place the patient on equivalent dose of valsartan. The patient is also on tamsulosin due to benign prostatic hyperplasia, which can certainly help his blood pressure. 3. Diabetes mellitus. We will place the patient on Lantus 8 units subcu daily as well as sliding scale. 4. Anxiety. Continue diphenhydramine as ordered as well as p.r.n. clonazepam. 5. Hyperlipidemia. Continue atorvastatin. 6. DVT prophylaxis: We will place the patient on heparin subcu q.12. 7. Disposition. As above. For PT lacho. [id number]/CPS #: [id number] [facility]
[2018-06-10] MEDS: Insulin GLARGINE(*) 1 UNITS UNIT SUBCUT SCH (14:49)
[2018-06-10] MEDS: Tamsulosin CAP* 0.4 MG PO SCH (14:50)
[2018-06-10] MEDS: methylPREDNISolone SOD SUCC* 500 MG in NS 0.9% 100 ML* 100 ML IVPB SCH (14:52)
[2018-06-10 15:04] LABS: ABS Basophils 0.1 10^3/ul (0-0.2); ABS Eosinophils 0.4 10^3/ul (0-0.6); ABS Lymphocytes 2.1 10^3/ul (1.0-4.8); ABS Monocytes 0.8 10^3/ul (0-0.8); ABS Nucleated RBC 0 10^3/ul; Eosinophil % 2.2 %; Hematocrit 39 % (42-52); Hemoglobin 12.8 g/dl (14.0-18.0); Lymphocyte % 12.6 %; Mean Corpuscular HGB Conc 33 g/dl (31-36); Mean Corpuscular Hemoglobin 27 pg (27-31); Mean Corpuscular Volume 81 fL (80-94); Mean Platelet Volume 7.9 fL (7.4-10.4); Nucleated Red Blood Cells % 0; Platelet Count 488 10^3/ul (150-450); Red Blood Count 4.82 10^6/ul (4.00-5.40); Red Cell Distribution Width 19 % (10.5-15); White Blood Count 16.4 10^3/ul (3.5-10.8)
[2018-06-10 15:15] LABS: Activated Partial Thrombo Time 30.1 seconds (26.0-36.3); INR 0.86 (0.77-1.02)
[2018-06-10 15:33] LABS: Albumin/Globulin Ratio 0.7 (1-3); BUN/Creatinine Ratio 20.3 (8-20); Calcium 7.6 mg/dL (8.6-10.3); EGFR African American 28.7 (>60); EGFR Non-African American 23.7 (>60); Globulin 2.7 g/dL (2-4); Magnesium 2.2 mg/dL (1.9-2.7); Phosphorus 4.2 mg/dL (2.5-5.0); Potassium 3.4 mmol/L (3.5-5.0); Total Bilirubin 0.3 mg/dL (0.2-1.0); Total Protein 4.7 g/dL (6.4-8.9)
[2018-06-10] MEDS ORDERED: Albumin Human 25%* 25 GM/100 ML BTL IV SCH (15:40)
[2018-06-10] MEDS: Insulin LISPRO* 1 UNITS UNIT SUBCUT SCH ×2 (17:14→21:35)
[2018-06-10] MEDS: Furosemide IV* 10 MG/ML VIAL (40 MG) IV SCH (18:30)
[2018-06-10] MEDS: Heparin VIAL(*) 5000 UNITS/ML VIAL (FIVE THOUSAND) SUBCUT SCH (21:37)
[2018-06-10] MEDS ORDERED: predniSONE TAB* 10 MG PO SCH (22:00)
[2018-06-10] MEDS: diPHENhydraMINE PO* 25 MG PO PRN (23:55)
[2018-06-11 07:05] LABS: Albumin/Globulin Ratio 0.9 (1-3); BUN/Creatinine Ratio 21.3 (8-20); Calcium 7.5 mg/dL (8.6-10.3); EGFR African American 28.5 (>60); EGFR Non-African American 23.6 (>60); Globulin 2.3 g/dL (2-4); Magnesium 2.1 mg/dL (1.9-2.7); Phosphorus 4.7 mg/dL (2.5-5.0); Total Bilirubin 0.4 mg/dL (0.2-1.0); Total Protein 4.3 g/dL (6.4-8.9)
[2018-06-11] MEDS: Nystatin TOP POWDER* 15 GM BTL TOPICAL SCH ×3 (07:43→22:39)
[2018-06-11] MEDS: Insulin LISPRO* 1 UNITS UNIT SUBCUT SCH ×4 (07:43→22:38)
[2018-06-11] MEDS: Atorvastatin* 40 MG TAB PO SCH (07:44)
[2018-06-11] MEDS: Valsartan TAB* 80 MG PO SCH (07:44)
[2018-06-11] MEDS: Tamsulosin CAP* 0.4 MG PO SCH (07:45)
[2018-06-11] MEDS: Heparin VIAL(*) 5000 UNITS/ML VIAL (FIVE THOUSAND) SUBCUT SCH ×2 (07:45→22:38)
[2018-06-11] MEDS: Furosemide IV* 10 MG/ML VIAL (40 MG) IV SCH ×2 (09:50→13:32)
[2018-06-11] MEDS: Albumin Human 25%* 25 GM/100 ML BTL IV SCH ×2 (10:04→18:48)
[2018-06-11] MEDS ORDERED: Metolazone TAB* 5 MG PO STA (10:10)
[2018-06-11] MEDS: Ondansetron TAB* 4 MG PO PRN ×2 (12:18→23:31)
[2018-06-11] MEDS: Insulin GLARGINE(*) 1 UNITS UNIT SUBCUT SCH (13:32)
[2018-06-11] MEDS: methylPREDNISolone SOD SUCC* 500 MG in NS 0.9% 100 ML* 100 ML IVPB SCH (13:33)
[2018-06-11 14:27] LABS: Hematocrit 35 % (42-52); Hemoglobin 11.8 g/dl (14.0-18.0); Mean Corpuscular HGB Conc 34 g/dl (31-36); Mean Corpuscular Hemoglobin 28 pg (27-31); Mean Corpuscular Volume 81 fL (80-94); Platelet Count 392 10^3/ul (150-450); Red Cell Distribution Width 19 % (10.5-15); White Blood Count 10.6 10^3/ul (3.5-10.8)
[2018-06-11 14:40] LABS: Anion Gap 7 mmol/L (2-11); BUN/Creatinine Ratio 21.9 (8-20); Blood Urea Nitrogen 59 mg/dL (6-24); CO2 Carbon Dioxide 20 mmol/L (22-32); Calcium 7.2 mg/dL (8.6-10.3); Chloride 109 mmol/L (101-111); EGFR African American 28.2 (>60); EGFR Non-African American 23.3 (>60); Glucose 202 mg/dL (70-100); Sodium 136 mmol/L (135-145)
--- NOTE | 2018-06-11 18:21 | PN ---
Subjective Interval History: Pt reports improvement in LE swelling. Doesn't think his scrotum has improved in size yet. Very anxious and has a lot of questions about dialysis. All question answered but discussed that is not our current plan. Objective Active Medications: Atorvastatin Calcium (Lipitor*) 40 mg PO DAILY [facility] Last Admin: 06/11/18 07:44 Dose: 40 mg Clonazepam (Klonopin Tab(*)) 0.5 mg PO DAILY PRN PRN Reason: ANXIETY Dextrose (D50w Syringe 50 Ml*) 12.5 gm IV PUSH .FOR FS < 60 - SS PRN PRN Reason: FS < 60 Diphenhydramine HCl (Benadryl Po*) 25 mg PO BEDTIME PRN PRN Reason: Anxiety/Insomnia Last Admin: 06/10/18 23:55 Dose: 25 mg Furosemide (Lasix Iv*) 120 mg IV 0600,1300 [facility] Last Admin: 06/11/18 13:32 Dose: 120 mg Heparin Sodium (Porcine) (Heparin Vial(*)) 5,000 units SUBCUT Q12HR [facility] Last Admin: 06/11/18 07:45 Dose: 5,000 units Methylprednisolone Sodium Succinate 500 mg/ Sodium Chloride 100 mls @ 100 mls/ hr IVPB Q24H [facility] Last Admin: 06/11/18 13:33 Dose: 100 mls/hr Albumin Human (Albumin Human 25%*) 25 gm in 100 mls @ 12 mls/hr IV Q8H [facility] Last Admin: 06/11/18 10:04 Dose: 12 mls/hr Insulin Glargine (Lantus(*)) 8 units SUBCUT Q24H [facility] Last Admin: 06/11/18 13:32 Dose: 8 units Insulin Human Lispro (Humalog*) 0 units SUBCUT ACHS [facility]; Protocol Last Admin: 06/11/18 16:53 Dose: 3 units Metolazone (Zaroxolyn Tab*) 5 mg PO DAILY@0530 [facility] Nystatin (Nystatin Top Powder*) 1 applic TOPICAL TID [facility] Last Admin: 06/11/18 13:37 Dose: 1 applic Ondansetron HCl (Zofran Tab*) 4 mg PO Q6H PRN PRN Reason: NAUSEA/VOMITING Last Admin: 06/11/18 12:18 Dose: 4 mg Tamsulosin HCl (Flomax Cap*) 0.4 mg PO DAILY [facility] Last Admin: 06/11/18 07:45 Dose: 0.4 mg Valsartan (Diovan Tab*) 80 mg PO DAILY [facility] Last Admin: 06/11/18 07:44 Dose: 80 mg Vital Signs - 8 hr 06/11/18 06/11/18 10:36 11:39 Temperature 97.7 F 98.0 F Pulse Rate 75 77 Respiratory 20 20 Rate Blood Pressure 141/78 131/75 (mmHg) O2 Sat by Pulse 99 94 Oximetry Oxygen Devices in Use Now: None Appearance: sitting on side of bed, quite anxious and quick with frequent questions, NAD Ears/Nose/Mouth/Throat: Mucous Membranes Moist Neck: No Thyroid Enlargement, Masses Respiratory: Clear to Auscultation Cardiovascular: RRR Abdominal: NL Sounds; No Tenderness; No Distention - pitting edema over abdomen Extremities: - - diffuse edema - pitting up to groin, pitting edema of hands Neurological: Alert and Oriented x 3 Result Diagrams: 06/11/18 14:12 06/11/18 14:12 Assess/Plan/Problems-Billing Assessment: 72M with nephrotic syndrome, DM2, anxiety, HTN, BPH, referred from outside nephrology for worsening diffuse edema requiring albumin-assisted IV diuresis. - Patient Problems (1) Nephrotic syndrome Comment: Per chart - from FSGS. Unable to view pathology results from biopsy in May. Dr. Em (outpatient manufactured buildings supervisor) following with patient. - continue IV Lasix - increase to 120mg IV bid with metolazone 5mg PO - cont IV albumin continuous - on day 2 / 3 IV steroids, switch to PO prednisone 60mg on 06/13 - need better recording of I & Os, daily weights - follow BMP (2) Diabetes Comment: HgbA1c (05/16/18) =7.6 -continue insulin glargine 8u daily with lispro ISS -cont atorvastatin for primary ppx (3) Anxiety Comment: - cont home clonazepam and benadryl prns (4) HTN (hypertension) Comment: - cont ARB (5) Benign prostate hyperplasia Comment: cont home tamsulosin (6) DVT prophylaxis Comment: -Continue Heparin SQ Status and Disposition: Remains admitted for IV diuresis with IV albumin and steroids. Can return home when on PO medications.
[2018-06-12] MEDS: Albumin Human 25%* 25 GM/100 ML BTL IV SCH ×2 (02:27→17:05)
[2018-06-12] MEDS: Metolazone TAB* 5 MG PO SCH (05:14)
[2018-06-12] MEDS: Furosemide IV* 10 MG/ML VIAL (40 MG) IV SCH ×2 (05:44→13:17)
[2018-06-12] MEDS: Insulin LISPRO* 1 UNITS UNIT SUBCUT SCH ×4 (07:40→22:30)
[2018-06-12] MEDS: Tamsulosin CAP* 0.4 MG PO SCH (07:40)
[2018-06-12] MEDS: Valsartan TAB* 80 MG PO SCH (07:40)
[2018-06-12] MEDS: Atorvastatin* 40 MG TAB PO SCH (07:40)
[2018-06-12] MEDS: Heparin VIAL(*) 5000 UNITS/ML VIAL (FIVE THOUSAND) SUBCUT SCH ×2 (07:40→22:31)
[2018-06-12] MEDS: Nystatin TOP POWDER* 15 GM BTL TOPICAL SCH ×3 (07:44→22:37)
[2018-06-12 07:54] LABS: ABS Basophils 0 10^3/ul (0-0.2); ABS Eosinophils 0 10^3/ul (0-0.6); ABS Lymphocytes 0.7 10^3/ul (1.0-4.8); ABS Monocytes 0.7 10^3/ul (0-0.8); ABS Nucleated RBC 0 10^3/ul; Eosinophil % 0 %; Hematocrit 34 % (42-52); Lymphocyte % 7.2 %; Mean Corpuscular HGB Conc 33 g/dl (31-36); Mean Corpuscular Hemoglobin 27 pg (27-31); Mean Corpuscular Volume 82 fL (80-94); Mean Platelet Volume 8.5 fL (7.4-10.4); Nucleated Red Blood Cells % 0.1; Platelet Count 344 10^3/ul (150-450); Red Blood Count 4.07 10^6/ul (4.00-5.40); Red Cell Distribution Width 19 % (10.5-15); White Blood Count 10.4 10^3/ul (3.5-10.8)
[2018-06-12 08:28] LABS: Calcium 7.5 mg/dL (8.6-10.3); Magnesium 2.2 mg/dL (1.9-2.7); Potassium 4.3 mmol/L (3.5-5.0)
[2018-06-12 08:29] LABS: BUN/Creatinine Ratio 21.3 (8-20); EGFR African American 27.3 (>60); EGFR Non-African American 22.6 (>60)
[2018-06-12] MEDS: Insulin GLARGINE(*) 1 UNITS UNIT SUBCUT SCH (12:35)
[2018-06-12] MEDS: methylPREDNISolone SOD SUCC* 500 MG in NS 0.9% 100 ML* 100 ML IVPB SCH (12:57)
[2018-06-12] MEDS: clonazePAM TAB(*) 0.5 MG PO PRN (16:58)
--- NOTE | 2018-06-12 18:47 | PN ---
Subjective Interval History: Per chart, net I&O down by 1.8 L, however weight only decreased less than a pound? Results not concordant. Pt very anxious and fixated on weight. Fixated on dialysis and asks same questions repeatedly, again asking if his edema is the worst I have seen, if he will from edema, why isn't his weight going down, are his feet swollen, are his hand swollen, etc. All cell lines decreased on CBC. BMP stable. Objective Active Medications: Atorvastatin Calcium (Lipitor*) 40 mg PO DAILY [facility] Last Admin: 06/12/18 07:40 Dose: 40 mg Clonazepam (Klonopin Tab(*)) 0.5 mg PO DAILY PRN PRN Reason: ANXIETY Last Admin: 06/12/18 16:58 Dose: 0.5 mg Dextrose (D50w Syringe 50 Ml*) 12.5 gm IV PUSH .FOR FS < 60 - SS PRN PRN Reason: FS < 60 Diphenhydramine HCl (Benadryl Po*) 25 mg PO BEDTIME PRN PRN Reason: Anxiety/Insomnia Last Admin: 06/10/18 23:55 Dose: 25 mg Furosemide (Lasix Iv*) 120 mg IV 0600,1300 [facility] Last Admin: 06/12/18 13:17 Dose: 120 mg Heparin Sodium (Porcine) (Heparin Vial(*)) 5,000 units SUBCUT Q12HR [facility] Last Admin: 06/12/18 07:40 Dose: 5,000 units Albumin Human (Albumin Human 25%*) 25 gm in 100 mls @ 12 mls/hr IV Q8H [facility] Last Admin: 06/12/18 17:05 Dose: 12 mls/hr Insulin Glargine (Lantus(*)) 8 units SUBCUT Q24H [facility] Last Admin: 06/12/18 12:35 Dose: 8 units Insulin Human Lispro (Humalog*) 0 units SUBCUT ACHS [facility]; Protocol Last Admin: 06/12/18 16:57 Dose: 3 units Metolazone (Zaroxolyn Tab*) 5 mg PO DAILY@0530 [facility] Last Admin: 06/12/18 05:14 Dose: 5 mg Nystatin (Nystatin Top Powder*) 1 applic TOPICAL TID [facility] Last Admin: 06/12/18 14:48 Dose: 1 applic Ondansetron HCl (Zofran Tab*) 4 mg PO Q6H PRN PRN Reason: NAUSEA/VOMITING Last Admin: 06/11/18 23:31 Dose: 4 mg Prednisone (Deltasone Tab*) 60 mg PO DAILY [facility] Tamsulosin HCl (Flomax Cap*) 0.4 mg PO DAILY [facility] Last Admin: 06/12/18 07:40 Dose: 0.4 mg Valsartan (Diovan Tab*) 80 mg PO DAILY [facility] Last Admin: 06/12/18 07:40 Dose: 80 mg Vital Signs - 8 hr 06/12/18 06/12/18 06/12/18 11:30 15:25 16:58 Temperature 97.3 F 97.7 F Pulse Rate 78 73 Respiratory 20 18 20 Rate Blood Pressure 140/78 144/83 (mmHg) O2 Sat by Pulse 96 95 Oximetry 06/12/18 18:34 Temperature Pulse Rate Respiratory 16 Rate Blood Pressure (mmHg) O2 Sat by Pulse Oximetry Oxygen Devices in Use Now: None Appearance: lying flat in bed breathing comfortable, very anxious and difficult to interrupt Respiratory: Clear to Auscultation Cardiovascular: RRR Abdominal: NL Sounds; No Tenderness; No Distention - pitting edema improved over abdomen Extremities: - - 2+ edema to thighs - slightly improved Result Diagrams: 06/12/18 07:27 06/12/18 07:27 Assess/Plan/Problems-Billing Assessment: 72M with nephrotic syndrome, DM2, anxiety, HTN, BPH, referred from outside nephrology for worsening diffuse edema requiring albumin-assisted IV diuresis and IV steroids. - Patient Problems (1) Nephrotic syndrome Comment: Per chart - from FSGS. Unable to view pathology results from biopsy in May. Dr. Em (outpatient bellperson) following with patient. - continue IV Lasix 120mg IV bid with metolazone 5mg PO - cont IV albumin continuous - now on day 3 of IV steroids, switch to PO prednisone 60mg tomorrow - need better recording of I & Os, daily weights - follow BMP (2) Diabetes Comment: HgbA1c (05/16/18) =7.6 -continue insulin glargine 8u daily with lispro ISS -cont atorvastatin for primary ppx (3) Anxiety Comment: - cont home clonazepam and benadryl prns (4) HTN (hypertension) Comment: - cont ARB (5) Benign prostate hyperplasia Comment: cont home tamsulosin (6) DVT prophylaxis Comment: -Continue Heparin SQ Status and Disposition: Remains admitted for IV diuresis with IV albumin and steroids. Can return home when on PO medications.
[2018-06-13] MEDS: Albumin Human 25%* 25 GM/100 ML BTL IV SCH ×4 (03:48→21:37)
[2018-06-13] MEDS: predniSONE TAB* 20 MG PO SCH (07:56)
[2018-06-13] MEDS: clonazePAM TAB(*) 0.5 MG PO PRN (07:56)
[2018-06-13] MEDS: Tamsulosin CAP* 0.4 MG PO SCH (07:56)
[2018-06-13] MEDS: Valsartan TAB* 80 MG PO SCH (07:56)
[2018-06-13] MEDS: Insulin LISPRO* 1 UNITS UNIT SUBCUT SCH ×4 (07:57→21:36)
[2018-06-13] MEDS: Heparin VIAL(*) 5000 UNITS/ML VIAL (FIVE THOUSAND) SUBCUT SCH ×2 (07:57→21:36)
[2018-06-13] MEDS: Metolazone TAB* 5 MG PO SCH (07:57)
[2018-06-13] MEDS: Atorvastatin* 40 MG TAB PO SCH (07:57)
[2018-06-13] MEDS: Furosemide IV* 10 MG/ML VIAL (40 MG) IV SCH ×2 (07:57→15:13)
[2018-06-13 08:47] LABS: Hematocrit 36 % (42-52); Hemoglobin 11.4 g/dl (14.0-18.0); Mean Corpuscular HGB Conc 32 g/dl (31-36); Mean Corpuscular Hemoglobin 26 pg (27-31); Mean Corpuscular Volume 82 fL (80-94); Red Blood Count 4.31 10^6/ul (4.00-5.40); Red Cell Distribution Width 19 % (10.5-15); White Blood Count 16.9 10^3/ul (3.5-10.8)
[2018-06-13 09:06] LABS: ABS Basophils 0.1 10^3/ul (0-0.2); ABS Eosinophils 0 10^3/ul (0-0.6); ABS Lymphocytes 0.6 10^3/ul (1.0-4.8); ABS Neutrophils 15.3 10^3/ul (1.5-7.7); ABS Nucleated RBC 0 10^3/ul; Eosinophil % 0.1 %; Lymphocyte % 3.7 %; Mean Platelet Volume 8.8 fL (7.4-10.4); Nucleated Red Blood Cells % 0; Platelet Count 267 10^3/ul (150-450)
[2018-06-13 09:12] LABS: Calcium 7.2 mg/dL (8.6-10.3); Magnesium 2.1 mg/dL (1.9-2.7); Potassium 3.5 mmol/L (3.5-5.0)
[2018-06-13 09:18] LABS: BUN/Creatinine Ratio 21.5 (8-20); EGFR African American 26.6 (>60)
[2018-06-13] MEDS: Insulin GLARGINE(*) 1 UNITS UNIT SUBCUT SCH (12:10)
[2018-06-13] MEDS: Nystatin TOP POWDER* 15 GM BTL TOPICAL SCH ×3 (12:10→21:37)
--- NOTE | 2018-06-13 16:16 | PN ---
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 Overnight, no acute events. VSS, -2L for 06/13 for 24 hour balance, + BM. Labs reviewed, leukocytosis, Cr 2.8, L 3.5, will replete, has lost 2 lbs in 24 hours. Seen this afternoon, pt is anxious, just generally worried and talkative which is his baseline, denies current CP, CI or MSK issues. Dr. Em to eval patient tomorrow 06/14 Objective Active Medications: Atorvastatin Calcium (Lipitor*) 40 mg PO DAILY [facility] Last Admin: 06/13/18 07:57 Dose: 40 mg Clonazepam (Klonopin Tab(*)) 0.5 mg PO DAILY PRN PRN Reason: ANXIETY Last Admin: 06/13/18 07:56 Dose: 0.5 mg Dextrose (D50w Syringe 50 Ml*) 12.5 gm IV PUSH .FOR FS < 60 - SS PRN PRN Reason: FS < 60 Diphenhydramine HCl (Benadryl Po*) 25 mg PO BEDTIME PRN PRN Reason: Anxiety/Insomnia Last Admin: 06/10/18 23:55 Dose: 25 mg Furosemide (Lasix Iv*) 120 mg IV 0600,1300 [facility] Last Admin: 06/13/18 15:13 Dose: 120 mg Heparin Sodium (Porcine) (Heparin Vial(*)) 5,000 units SUBCUT Q12HR [facility] Last Admin: 06/13/18 07:57 Dose: 5,000 units Albumin Human (Albumin Human 25%*) 25 gm in 100 mls @ 12 mls/hr IV Q8H [facility] Last Admin: 06/13/18 12:08 Dose: 12 mls/hr Insulin Glargine (Lantus(*)) 8 units SUBCUT Q24H [facility] Last Admin: 06/13/18 12:10 Dose: 8 units Insulin Human Lispro (Humalog*) 0 units SUBCUT ACHS [facility]; Protocol Last Admin: 06/13/18 12:10 Dose: 6 units Metolazone (Zaroxolyn Tab*) 5 mg PO DAILY@0530 [facility] Last Admin: 06/13/18 07:57 Dose: 5 mg Nystatin (Nystatin Top Powder*) 1 applic TOPICAL TID [facility] Last Admin: 06/13/18 15:15 Dose: Not Given Ondansetron HCl (Zofran Tab*) 4 mg PO Q6H PRN PRN Reason: NAUSEA/VOMITING Last Admin: 06/11/18 23:31 Dose: 4 mg Prednisone (Deltasone Tab*) 60 mg PO DAILY [facility] Last Admin: 06/13/18 07:56 Dose: 60 mg Tamsulosin HCl (Flomax Cap*) 0.4 mg PO DAILY [facility] Last Admin: 06/13/18 07:56 Dose: 0.4 mg Valsartan (Diovan Tab*) 80 mg PO DAILY [facility] Last Admin: 06/13/18 07:56 Dose: 80 mg Vital Signs - 8 hr 06/13/18 06/13/18 11:29 12:09 Temperature 97.4 F Pulse Rate 72 Respiratory 14 20 Rate Blood Pressure 133/83 (mmHg) O2 Sat by Pulse 94 Oximetry Oxygen Devices in Use Now: None Appearance: Well appearing man in NAD Eyes: No Scleral Icterus, PERRLA Ears/Nose/Mouth/Throat: NL Teeth, Lips, Gums Neck: NL Appearance and Movements; NL JVP Respiratory: Symmetrical Chest Expansion and Respiratory Effort, Clear to Auscultation Cardiovascular: NL Sounds; No Murmurs; No JVD, RRR Abdominal: NL Sounds; No Tenderness; No Distention Lymphatic: No Cervical Adenopathy Extremities: - - Diffuse anasarca throughout body 4+ pitting edema to legs, abdominal wall scrotum and arms Skin: No Rash or Ulcers Neurological: Alert and Oriented x 3 Result Diagrams: 06/13/18 08:28 06/13/18 08:28 Assess/Plan/Problems-Billing Assessment: 72M with nephrotic syndrome, DM2, anxiety, HTN, BPH, referred from outside nephrology for worsening diffuse edema requiring albumin-assisted IV diuresis and IV steroids. - Patient Problems (1) Nephrotic syndrome Current Visit: Yes Status: Acute Code(s): N04.9 - NEPHROTIC SYNDROME WITH UNSPECIFIED MORPHOLOGIC CHANGES SNOMED Code(s): 47074864 Comment: Per chart - from FSGS. Unable to view pathology results from biopsy in May. Dr. Em (outpatient drilling foreman) following with patient. - continue IV Lasix 120mg IV bid with metolazone 5mg PO - cont IV albumin continuous - s/p IV steroids x 3 days, now on Pred 60mg daily - need better recording of I & Os, daily weights - follow BMP, replete K (2) Anxiety Current Visit: Yes Status: Acute Code(s): F41.9 - ANXIETY DISORDER, UNSPECIFIED SNOMED Code(s): 99593431 Comment: - cont home clonazepam and benadryl prns (3) Benign prostate hyperplasia Current Visit: Yes Status: Acute Code(s): N40.0 - BENIGN PROSTATIC HYPERPLASIA WITHOUT LOWER URINRY TRACT SYMP SNOMED Code(s): 563589815 Comment: cont home tamsulosin (4) Diabetes Current Visit: No Status: Acute Code(s): E11.9 - TYPE 2 DIABETES MELLITUS WITHOUT COMPLICATIONS SNOMED Code(s): 45291766 Comment: HgbA1c (05/16/18) =7.6 -continue insulin glargine 8u daily with lispro ISS -cont atorvastatin for primary ppx (5) HTN (hypertension) Current Visit: No Status: Acute Code(s): I10 - ESSENTIAL (PRIMARY) HYPERTENSION SNOMED Code(s): 74827010 Comment: - cont ARB (6) DVT prophylaxis Current Visit: No Status: Acute Code(s): JTF9514 - SNOMED Code(s): 848356847 Comment: -Continue Heparin SQ (7) Full code status Current Visit: Yes Status: Acute Code(s): Z78.9 - OTHER SPECIFIED HEALTH STATUS SNOMED Code(s): 241528251 Status and Disposition: Remains admitted for IV diuresis with IV albumin and steroids. Can return home when on PO medications.
[2018-06-13] MEDS: Potassium Chlor TAB* 20 MEQ TAB.ER PO SCH ×2 (16:55→21:36)
[2018-06-13] MEDS ORDERED: Insulin GLARGINE(*) 1 UNITS UNIT SUBCUT SCH (18:00)
[2018-06-14] MEDS: Metolazone TAB* 5 MG PO SCH (05:22)
[2018-06-14] MEDS: Albumin Human 25%* 25 GM/100 ML BTL IV SCH ×3 (06:12→21:38)
[2018-06-14] MEDS: Furosemide IV* 10 MG/ML VIAL (40 MG) IV SCH ×3 (06:12→14:31)
[2018-06-14 06:45] LABS: Calcium 7.3 mg/dL (8.6-10.3); Magnesium 1.8 mg/dL (1.9-2.7); Potassium 3.4 mmol/L (3.5-5.0)
[2018-06-14 06:50] LABS: EGFR African American 27.6 (>60); EGFR Non-African American 22.8 (>60)
[2018-06-14] MEDS: Insulin LISPRO* 1 UNITS UNIT SUBCUT SCH ×4 (08:46→22:27)
[2018-06-14] MEDS: Insulin GLARGINE(*) 1 UNITS UNIT SUBCUT SCH (10:08)
[2018-06-14] MEDS: Heparin VIAL(*) 5000 UNITS/ML VIAL (FIVE THOUSAND) SUBCUT SCH ×2 (10:09→21:43)
[2018-06-14] MEDS: predniSONE TAB* 20 MG PO SCH (10:12)
[2018-06-14] MEDS: Valsartan TAB* 80 MG PO SCH (10:12)
[2018-06-14] MEDS: Tamsulosin CAP* 0.4 MG PO SCH (10:13)
[2018-06-14] MEDS: Atorvastatin* 40 MG TAB PO SCH (10:13)
[2018-06-14] MEDS: Nystatin TOP POWDER* 15 GM BTL TOPICAL SCH ×3 (10:26→21:54)
[2018-06-14] MEDS: Potassium Chlor TAB* 20 MEQ TAB.ER PO SCH ×2 (10:26→21:28)
[2018-06-14] MEDS ORDERED: ALBUMIN HUMAN 25% IV ONE (10:37)
--- NOTE | 2018-06-14 10:42 | PN ---
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 Overnight, no acute events. VSS, -2L for 3/10 for 24 hour balance, + BM. Labs reviewed, leukocytosis, Cr 2.8, L 3.5, will replete, has lost 2 lbs in 24 hours. Seen this morning has had slow to improve weight loss or edema, he is a bit anxious about everything, but we discuss will re clarify plan with neprhology. He has been having BM (assisted with enema, which is his baseline) and otherwise tolerating PO. Many questions about prognosis which is his baseline. No CP, no SOB, no GI issues, mild dysuria. Discussed case with Dr. Em, has had disappointing diuretic progress, will re calculate his albumin needs to compensate for urinary loss and trial re bolusing. Objective Active Medications: Atorvastatin Calcium (Lipitor*) 40 mg PO DAILY [facility] Last Admin: 06/14/18 10:13 Dose: 40 mg Clonazepam (Klonopin Tab(*)) 0.5 mg PO DAILY PRN PRN Reason: ANXIETY Last Admin: 06/13/18 07:56 Dose: 0.5 mg Dextrose (D50w Syringe 50 Ml*) 12.5 gm IV PUSH .FOR FS < 60 - SS PRN PRN Reason: FS < 60 Diphenhydramine HCl (Benadryl Po*) 25 mg PO BEDTIME PRN PRN Reason: Anxiety/Insomnia Last Admin: 06/10/18 23:55 Dose: 25 mg Furosemide (Lasix Iv*) 120 mg IV 0600,1300 [facility] Last Admin: 06/14/18 06:12 Dose: 120 mg Heparin Sodium (Porcine) (Heparin Vial(*)) 5,000 units SUBCUT Q12HR [facility] Last Admin: 06/14/18 10:09 Dose: 5,000 units Albumin Human (Albumin Human 25%*) 25 gm in 100 mls @ 12 mls/hr IV Q8H [facility] Last Admin: 06/14/18 06:12 Dose: 12 mls/hr Insulin Glargine (Lantus(*)) 10 units SUBCUT Q24H [facility] Last Admin: 06/14/18 10:08 Dose: 10 units Insulin Human Lispro (Humalog*) 0 units SUBCUT ACHS [facility]; Protocol Last Admin: 06/14/18 08:46 Dose: Not Given Metolazone (Zaroxolyn Tab*) 5 mg PO DAILY@0530 [facility] Last Admin: 06/14/18 05:22 Dose: 5 mg Nystatin (Nystatin Top Powder*) 1 applic TOPICAL TID [facility] Last Admin: 06/14/18 10:26 Dose: 1 applic Ondansetron HCl (Zofran Tab*) 4 mg PO Q6H PRN PRN Reason: NAUSEA/VOMITING Last Admin: 06/11/18 23:31 Dose: 4 mg Potassium Chloride (Klor Con Er Tab*) 20 meq PO BID [facility] Last Admin: 06/14/18 10:26 Dose: Not Given Prednisone (Deltasone Tab*) 60 mg PO DAILY [facility] Last Admin: 06/14/18 10:12 Dose: 60 mg Tamsulosin HCl (Flomax Cap*) 0.4 mg PO DAILY [facility] Last Admin: 06/14/18 10:13 Dose: 0.4 mg Valsartan (Diovan Tab*) 80 mg PO DAILY [facility] Last Admin: 06/14/18 10:12 Dose: 80 mg Vital Signs - 8 hr 06/14/18 06/14/18 06/14/18 04:46 04:51 07:21 Temperature 97.5 F 97.5 F Pulse Rate 75 76 Respiratory 28 18 Rate Blood Pressure 164/89 123/80 133/83 (mmHg) O2 Sat by Pulse 95 95 Oximetry Oxygen Devices in Use Now: None Appearance: Anxious but pleasant man in bed Eyes: No Scleral Icterus, PERRLA Ears/Nose/Mouth/Throat: NL Teeth, Lips, Gums Neck: NL Appearance and Movements; NL JVP Respiratory: Symmetrical Chest Expansion and Respiratory Effort, Clear to Auscultation Cardiovascular: NL Sounds; No Murmurs; No JVD, RRR Abdominal: NL Sounds; No Tenderness; No Distention, - - Abd wall anasarca Lymphatic: No Cervical Adenopathy Extremities: - - Diffuse anasarca, LE UE and scrotal, scrotal edema slightly improved Skin: No Rash or Ulcers Neurological: Alert and Oriented x 3 Result Diagrams: 06/13/18 08:28 06/14/18 06:11 Assess/Plan/Problems-Billing Assessment: 72M with nephrotic syndrome, DM2, anxiety, HTN, BPH, referred from outside nephrology for worsening diffuse edema requiring albumin-assisted IV diuresis and IV steroids. - Patient Problems (1) Nephrotic syndrome Current Visit: Yes Status: Acute Code(s): N04.9 - NEPHROTIC SYNDROME WITH UNSPECIFIED MORPHOLOGIC CHANGES SNOMED Code(s): 14386337 Comment: Per chart - from FSGS. Unable to view pathology results from biopsy in May. Dr. Em (outpatient manager medical writing) following with patient. - continue IV Lasix 120mg IV bid with metolazone 5mg PO - Will bolus patinet again with albumin 75grams and increase albumin titration to 5 - s/p IV steroids x 3 days, now on Pred 60mg daily 40mg in AM and 20mg PM - need better recording of I & Os, daily weights - follow BMP, replete K - Consider additonal tx agents (Dr. Em to follow) (2) Anxiety Current Visit: Yes Status: Acute Code(s): F41.9 - ANXIETY DISORDER, UNSPECIFIED SNOMED Code(s): 86276143 Comment: - cont home clonazepam and benadryl prns (3) Benign prostate hyperplasia Current Visit: Yes Status: Acute Code(s): N40.0 - BENIGN PROSTATIC HYPERPLASIA WITHOUT LOWER URINRY TRACT SYMP SNOMED Code(s): 250602248 Comment: cont home tamsulosin (4) Diabetes Current Visit: No Status: Acute Code(s): E11.9 - TYPE 2 DIABETES MELLITUS WITHOUT COMPLICATIONS SNOMED Code(s): 98351815 Comment: HgbA1c (05/16/18) =7.6, will watch for hypergly -continue insulin glargine 8u daily with lispro ISS -cont atorvastatin for primary ppx (5) HTN (hypertension) Current Visit: No Status: Acute Code(s): I10 - ESSENTIAL (PRIMARY) HYPERTENSION SNOMED Code(s): 08628888 Comment: - cont ARB (6) DVT prophylaxis Current Visit: No Status: Acute Code(s): ORA3979 - SNOMED Code(s): 561943305 Comment: -Continue Heparin SQ (7) Full code status Current Visit: Yes Status: Acute Code(s): Z78.9 - OTHER SPECIFIED HEALTH STATUS SNOMED Code(s): 376243625 Status and Disposition: Remains admitted for IV diuresis with IV albumin and steroids. Can return home when on PO medications.
[2018-06-14] MEDS ORDERED: Potassium Chlor TAB* 20 MEQ TAB.ER PO ONE (11:39)
[2018-06-14] MEDS ORDERED: Albumin Human 25%* 25 GM/100 ML BTL IV SCH (12:30)
[2018-06-14] MEDS: Ondansetron TAB* 4 MG PO PRN (21:27)
[2018-06-14] MEDS: clonazePAM TAB(*) 0.5 MG PO PRN (21:27)
[2018-06-15] MEDS: Albumin Human 25%* 25 GM/100 ML BTL IV SCH ×6 (03:15→20:31)
[2018-06-15 06:14] LABS: ABS Basophils 0 10^3/ul (0-0.2); ABS Eosinophils 0 10^3/ul (0-0.6); ABS Lymphocytes 0.7 10^3/ul (1.0-4.8); ABS Monocytes 0.8 10^3/ul (0-0.8); ABS Neutrophils 8.3 10^3/ul (1.5-7.7); ABS Nucleated RBC 0 10^3/ul; Eosinophil % 0.1 %; Hematocrit 31 % (42-52); Hemoglobin 10.2 g/dl (14.0-18.0); Lymphocyte % 6.7 %; Mean Corpuscular HGB Conc 33 g/dl (31-36); Mean Corpuscular Hemoglobin 27 pg (27-31); Mean Corpuscular Volume 81 fL (80-94); Mean Platelet Volume 8.7 fL (7.4-10.4); Nucleated Red Blood Cells % 0; Platelet Count 241 10^3/ul (150-450); Red Blood Count 3.75 10^6/ul (4.00-5.40); Red Cell Distribution Width 19 % (10.5-15); White Blood Count 9.7 10^3/ul (3.5-10.8)
[2018-06-15 06:32] LABS: BUN/Creatinine Ratio 24.1 (8-20); Calcium 7.5 mg/dL (8.6-10.3); EGFR African American 29.8 (>60); EGFR Non-African American 24.6 (>60); Potassium 3.1 mmol/L (3.5-5.0)
[2018-06-15] MEDS: Metolazone TAB* 5 MG PO SCH (06:54)
[2018-06-15] MEDS: Furosemide IV* 10 MG/ML VIAL (40 MG) IV SCH ×2 (06:54→13:43)
[2018-06-15] MEDS: Insulin LISPRO* 1 UNITS UNIT SUBCUT SCH ×4 (08:50→20:43)
[2018-06-15] MEDS: Heparin VIAL(*) 5000 UNITS/ML VIAL (FIVE THOUSAND) SUBCUT SCH ×2 (08:51→20:18)
[2018-06-15] MEDS: Atorvastatin* 40 MG TAB PO SCH (08:51)
[2018-06-15] MEDS: Tamsulosin CAP* 0.4 MG PO SCH (08:51)
[2018-06-15] MEDS: Valsartan TAB* 80 MG PO SCH (08:51)
[2018-06-15] MEDS: Insulin GLARGINE(*) 1 UNITS UNIT SUBCUT SCH (08:52)
[2018-06-15] MEDS: Nystatin TOP POWDER* 15 GM BTL TOPICAL SCH ×3 (08:52→20:34)
[2018-06-15] MEDS: Potassium Chlor TAB* 20 MEQ TAB.ER PO SCH ×2 (08:52→20:21)
[2018-06-15] MEDS: predniSONE TAB* 20 MG PO SCH (08:52)
--- NOTE | 2018-06-15 14:24 | PN ---
Subjective Date of Service: 06/15/18 Interval History: HOSPITALIST PROGRESS NOTE Patient seen and examined at bedside. Care reviewed and d/w Gladys Marquez RN. He is anxious today. Has many questions about his diagnosis, condition, why is he not on dyalisis. Concerned he has lost a lot of weight but is still very swollen. Denies pain, palpitations, dyspnea. Requesting ice cream repeatedly despite education about his sugar. Family History: Unchanged from Admission Social History: Unchanged from Admission Past Medical History: Unchanged from Admission Objective Active Medications: Atorvastatin Calcium (Lipitor*) 40 mg PO DAILY [facility] Last Admin: 06/15/18 08:51 Dose: 40 mg Clonazepam (Klonopin Tab(*)) 0.5 mg PO DAILY PRN PRN Reason: ANXIETY Last Admin: 06/14/18 21:27 Dose: 0.5 mg Dextrose (D50w Syringe 50 Ml*) 12.5 gm IV PUSH .FOR FS < 60 - SS PRN PRN Reason: FS < 60 Diphenhydramine HCl (Benadryl Po*) 25 mg PO BEDTIME PRN PRN Reason: Anxiety/Insomnia Last Admin: 06/10/18 23:55 Dose: 25 mg Furosemide (Lasix Iv*) 120 mg IV 0600,1330 [facility] Last Admin: 06/15/18 13:43 Dose: 120 mg Heparin Sodium (Porcine) (Heparin Vial(*)) 5,000 units SUBCUT Q12HR [facility] Last Admin: 06/15/18 08:51 Dose: 5,000 units Albumin Human (Albumin Human 25%*) 25 gm in 100 mls @ 20 mls/hr IV Q5H [facility] Insulin Glargine (Lantus(*)) 10 units SUBCUT Q24H [facility] Last Admin: 06/15/18 08:52 Dose: 10 units Insulin Human Lispro (Humalog*) 0 units SUBCUT ACHS [facility]; Protocol Last Admin: 06/15/18 12:38 Dose: Not Given Metolazone (Zaroxolyn Tab*) 5 mg PO DAILY@0530 [facility] Last Admin: 06/15/18 06:54 Dose: 5 mg Nystatin (Nystatin Top Powder*) 1 applic TOPICAL TID [facility] Last Admin: 06/15/18 13:43 Dose: 1 applic Ondansetron HCl (Zofran Tab*) 4 mg PO Q6H PRN PRN Reason: NAUSEA/VOMITING Last Admin: 06/14/18 21:27 Dose: 4 mg Potassium Chloride (Klor Con Er Tab*) 20 meq PO BID [facility] Last Admin: 06/15/18 08:52 Dose: 20 meq Prednisone (Deltasone Tab*) 20 mg PO 2000 [facility] Prednisone (Deltasone Tab*) 40 mg PO DAILY [facility] Last Admin: 06/15/18 08:52 Dose: 40 mg Tamsulosin HCl (Flomax Cap*) 0.4 mg PO DAILY [facility] Last Admin: 06/15/18 08:51 Dose: 0.4 mg Valsartan (Diovan Tab*) 80 mg PO DAILY [facility] Last Admin: 06/15/18 08:51 Dose: 80 mg Vital Signs - 8 hr 06/15/18 06/15/18 06/15/18 08:00 08:12 10:11 Temperature 98.2 F 97.6 F Pulse Rate 55 54 Respiratory 20 20 16 Rate Blood Pressure 141/64 126/63 (mmHg) O2 Sat by Pulse 95 95 Oximetry 06/15/18 10:29 Temperature 97.4 F Pulse Rate 54 Respiratory 19 Rate Blood Pressure 132/67 (mmHg) O2 Sat by Pulse 94 Oximetry Oxygen Devices in Use Now: None Appearance: Elderly gentleman sitting up in bed in [facility]. Eyes: No Scleral Icterus Ears/Nose/Mouth/Throat: Mucous Membranes Moist Neck: Trachea Midline Respiratory: Symmetrical Chest Expansion and Respiratory Effort, Clear to Auscultation Cardiovascular: RRR - Normal S1 and S2 Extremities: - - Anasarca Neurological: Alert and Oriented x 3, NL Muscle Strength and Tone Result Diagrams: 06/15/18 05:33 06/15/18 05:33 Assess/Plan/Problems-Billing Assessment: 72M with nephrotic syndrome, DM2, anxiety, HTN, BPH, referred from nephrology for worsening diffuse edema requiring albumin-assisted IV diuresis and IV steroids. - Patient Problems (1) Nephrotic syndrome Comment: - Secondary to FSGS as per Dr. Em. - Responding well to IV Lasix 120mg IV bid with metolazone 5mg PO. - Continue IV albumin. - Continue Prednisone 60mg daily (40mg in AM and 20mg PM). - Plan to f/u with Dr Em as outpatient and consider steroid sparing agent like cyclophosphamide or cyclosporine. - Creatinine stable around 2.5. - Weight down to 230 lbs. (2) Hypokalemia Comment: - Replete. (3) Anxiety Comment: - cont home clonazepam and benadryl prns (4) Benign prostate hyperplasia Comment: - cont home tamsulosin (5) Diabetes Comment: - HgbA1c (05/16/18) =7.6. - continue insulin glargine 8u daily with lispro ISS (6) HTN (hypertension) Comment: - continue Valsartan. (7) DVT prophylaxis Comment: - SQ Heparin. (8) Full code status Status and Disposition: Inpatient.
[2018-06-15] MEDS ORDERED: Potassium Chlor TAB* 20 MEQ TAB.ER PO ONE (14:28)
[2018-06-15] MEDS ORDERED: predniSONE TAB* 20 MG PO SCH (20:00)
[2018-06-15] MEDS: Ondansetron TAB* 4 MG PO PRN (20:20)
[2018-06-15] MEDS: clonazePAM TAB(*) 0.5 MG PO PRN (20:21)
[2018-06-15] MEDS: diPHENhydraMINE PO* 25 MG PO PRN (20:21)
[2018-06-16] MEDS: Albumin Human 25%* 25 GM/100 ML BTL IV SCH ×3 (01:24→11:48)
[2018-06-16] MEDS: Metolazone TAB* 5 MG PO SCH (05:25)
[2018-06-16 05:26] LABS: Calcium 7.7 mg/dL (8.6-10.3); Potassium 3.3 mmol/L (3.5-5.0)
[2018-06-16 05:32] LABS: BUN/Creatinine Ratio 23.2 (8-20); EGFR African American 29.6 (>60); EGFR Non-African American 24.4 (>60)
[2018-06-16] MEDS: Furosemide IV* 10 MG/ML VIAL (40 MG) IV SCH (06:02)
[2018-06-16] MEDS ORDERED: Potassium Chlor TAB* 20 MEQ TAB.ER PO ONE (08:21)
[2018-06-16] MEDS: Nystatin TOP POWDER* 15 GM BTL TOPICAL SCH (09:03)
[2018-06-16] MEDS: Insulin LISPRO* 1 UNITS UNIT SUBCUT SCH ×2 (09:04→11:40)
[2018-06-16] MEDS: Heparin VIAL(*) 5000 UNITS/ML VIAL (FIVE THOUSAND) SUBCUT SCH (09:05)
[2018-06-16] MEDS: Insulin GLARGINE(*) 1 UNITS UNIT SUBCUT SCH (09:05)
[2018-06-16] MEDS: Valsartan TAB* 80 MG PO SCH (09:08)
[2018-06-16] MEDS: Atorvastatin* 40 MG TAB PO SCH (09:08)
[2018-06-16] MEDS: Tamsulosin CAP* 0.4 MG PO SCH (09:09)
[2018-06-16] MEDS: Potassium Chlor TAB* 20 MEQ TAB.ER PO SCH (09:10)
[2018-06-16] MEDS: predniSONE TAB* 20 MG PO SCH (09:10)
--- NOTE | 2018-06-16 11:06 | PN ---
PROGRESS NOTE: DATE: 06/16/18 HISTORY OF PRESENT ILLNESS: Mr. Harden has been doing much better recently. He had come into the hospital with significant edema and he was not diuresing well as an outpatient. We put him on an albumin infusion and we are not really making much headway in mobilizing his fluids. The albumin infusion was increased and he mobilized fluids quite well at that point. His weight is down from 112.2 kg to 102.5 kg at this point. He has a lot less edema, although he still has some scrotal irritation. His scrotal edema is much better. Luckily, as we have done this, his renal function has not deteriorated. His creatinine has stayed stable at 2.9. He was pulsed with Solu-Medrol and his prednisone dose was increased to a more effective level. He had initially been started on 60 mg of prednisone per day but his misunderstood the instructions and he was only taking 40 mg of prednisone a day as 20 mg twice a day. She called the office in when he could not get out of bed, of course I was suspicious of steroid myopathy, but it turned out that he was just sleepy and did not want to get up. As a result, we boost him back up to a more reasonable dose of prednisone for focal and segmental glomerulosclerosis. He is going to be discharged at this point and I will see him back in the office to make a decision about the addition of mycophenolate. [id number]/[facility] #: [id number] JACQUELYN
[2018-06-16 11:40] VITALS: BP 131/71
--- NOTE | 2018-06-16 21:07 | DS ---
CC: Dr. Taigo Tam; Dr. Eusebio Em * DISCHARGE SUMMARY: DATE OF ADMISSION: 06/10/18 DATE OF DISCHARGE: 06/16/18 PRIMARY CARE PROVIDER: Dr. Tiago Tam. FINAL BLOCK PRESS OPERATOR: Dr. Eusebio Em. ATTENDING PHYSICIAN: Dr. Aníbal De Paz * (dictated by Yeny Quiroga NP). PRIMARY DIAGNOSES: 1. Nephrotic syndrome secondary to focal segmental glomerulosclerosis. 2. Hypokalemia. SECONDARY DIAGNOSES: 1. Anxiety. 2. Benign prostatic hyperplasia. 3. Diabetes mellitus type 2. 4. Hypertension. STUDIES WHILE IN THE HOSPITAL: Chest x-ray on 06/10/18 reads as pulmonary edema. HISTORY OF PRESENT ILLNESS AND HOSPITAL COURSE: Mr. Harden is a 72-year-old male with past medical history of nephrotic syndrome secondary to FSGS, type 2 diabetes, anxiety, BPH, and hypertension who was admitted to this facility as a direct admission on 06/10/18 due to increased weight gain. Please see the history and physical by Dr. Landis for complete summary of the events leading up to this hospitalization. In short, the patient was hospitalized at this facility from 05/13/18 to 05/20/18 for shortness of breath and anasarca. He was treated with albumin and Lasix and responded well. Since discharge, he reported he was unable to get out of bed. The patient has been following with Dr. Em for his nephrotic syndrome and Dr. mE did call the hospitalist service requesting that the patient be directly admitted for further albumin and Lasix. He was admitted by the hospitalist service. The patient was started on IV albumin as well as 120 mg of IV Lasix b.i.d. as well as metolazone and high-dose prednisone. His weight on admission was 247 pounds. The patient was followed closely by Dr. Em during this hospitalization. He responded well to the IV medications. He was noted to have some mild hypokalemia which was repleted as needed. Today, Dr. Em saw the patient and felt as though he was stable for discharge. The patient's weight on the day of discharge is 226 pounds, so he has lost approximately 21 pounds. On my exam, the patient reports feeling well. He is quite anxious, although this does seem to be his baseline. He does still have anasarca with generalized 1 to 2+ pitting edema, most notable in his bilateral lower extremities, bilateral arms,and his scrotum. He denies any complaints and has no chest pain, shortness of breath, or cough. He has had adequate urine output. Mr. Harden is stable for discharge today. Vital signs are as follows: Temp 97.5, heart rate 59, respiratory rate 17, oxygen saturation 97% on room air, blood pressure 131/71. DISCHARGE MEDICATIONS: New medication: Potassium chloride 20 mEq p.o. daily. Changed medications: 1. Furosemide 80 mg p.o. daily (previously was 80 mg b.i.d.) 2. Prednisone 40 mg p.o. in the a.m. (previously was 20 mg). 3. Prednisone 20 mg p.o. at bedtime (previously was 10 mg). Continued medications: 1. Apixaban 2.5 mg p.o. daily. 2. Atorvastatin 40 mg p.o. daily. 3. Candesartan 16 mg p.o. b.i.d. 4. Clonazepam 0.5 mg p.o. daily p.r.n. anxiety. 5. Vitamin B12 1000 mcg p.o. daily. 6. Benadryl 25 mg p.o. at bedtime. 7. NPH 10 units subcu in the a.m. 8. NPH 4 units subcu in the p.m. 9. Ondansetron 4 mg p.o. q.6 hours p.r.n. nausea, vomiting. 10. Tamsulosin 0.4 mg p.o. daily. DISCHARGE PLAN: Mr. Harden will be discharged home. Activity will be as tolerated. He has been advised that he can return to work when he feels able. Diet should be renal and consistent carb. The patient has been given information on a renal diet. Medications are noted above. I did speak with Dr. Em to confirm the dosing of medications. Dr. Em wanted the patient to be on 40 mg of prednisone in the morning and 20 mg at night. He additionally wanted him to be on 80 mg of Lasix daily. I will note that the patient was on apixaban prior to admission, though this was stopped while he was in the hospital. I did check with Dr. Em and he indicated that he wanted the patient back on apixaban due to the concern for renal vein thrombosis. He can continue his other usual medications as noted above. I have advised the patient that he should be checking his blood sugar frequently as his insulin requirements may be increased due to his high-dose prednisone. He will need to follow up with Dr. Em as they have previously discussed, and he should follow up with his PCP in 4 to 7 days. The patient has been advised to return to the emergency room or nearest hospital for any worsening of symptoms, shortness of breath, lightheadedness, dizziness, chest discomfort, high fevers, chills, night sweats, loss of consciousness, or any other worrisome signs or symptoms. DISCHARGE CONDITION: Stable. DISCHARGE DISPOSITION: Home. This is a summarized report of a complex medical history and hospital stay. For further details, please see the entire medical record. TIME SPENT: Approximately 45 minutes was spent on this discharge. YENY QUIROGA NP [id number]/CPS #: [id number] JACQUELYN
== END 2018-06-16 12:45 | disposition home health service (06) | DRG 699 ==
LOC: ED 11:33 → MED 12:10
PROVIDERS: ADMIT Internal Medicine Nephrology; ATTEND Internal Medicine
DX: E11.21 Type 2 diabetes mellitus with diabetic nephropathy (principal); J81.1 Chronic pulmonary edema; I82.3 Embolism and thrombosis of renal vein; N26.9 Renal sclerosis, unspecified; F41.9 Anxiety disorder, unspecified; I10 Essential (primary) hypertension; E78.5 Hyperlipidemia, unspecified; N40.0 Benign prostatic hyperplasia without lower urinary tract symptoms; E87.6 Hypokalemia; N50.89 Other specified disorders of the male genital organs; Z90.49 Acquired absence of other specified parts of digestive tract; Z82.49 Family history of ischemic heart disease and other diseases of the circulatory system; Z80.7 Family history of other malignant neoplasms of lymphoid, hematopoietic and related tissues; Z79.01 Long term (current) use of anticoagulants
CPT/HCPCS: 36415; 71045; 80048; 80053; 83735; 84100; 85025; 85027; 85610; 85730; 99284; A9270-GY; G8978-GP-CJ; G8979-GP-CJ; G8980-GP-CJ; J1644; J1940; J2930; J7512; P9047

== ENCOUNTER 2018-06-26 21:30 | Emergency (ER) | payer MEDICARE, BC, OTHER ==
[2018-06-26 21:55] LABS: Urine Appearance Cloudy; Urine Bacteria 1+ (Absent); Urine Bilirubin Negative (Negative); Urine Blood 2+ (Negative); Urine Color Yellow; Urine Glucose 3+(>=500 mg/dL) (Negative); Urine Granular Casts Present (Absent); Urine Ketones Negative (Negative); Urine Nitrite Negative (Negative); Urine Protein 3+(>=500 mg/dL) (Negative); Urine Red Blood Cell Trace(0-2/hpf) (Absent); Urine Specific Gravity 1.025 (1.010-1.030); Urine Urobilinogen Negative (Negative); Urine White Blood Cell 1+(6-10/hpf) (Absent)
[2018-06-26] MEDS ORDERED: Dextrose 50% Syringe 50 ML* 25 GM/50 ML SYRINGE IV PUSH PRN (22:04)
[2018-06-26] MEDS ORDERED: Insulin LISPRO* 1 UNITS UNIT SUBCUT ONE (22:04)
[2018-06-26] MEDS ORDERED: NS 0.9% 1000 ML** 2,000 ML IV ONE (22:05)
[2018-06-26 22:06] LABS: Hematocrit 35 % (36-46); Hemoglobin 11.2 g/dL (14.0-18.0); Mean Corpuscular HGB Conc 33 g/dL (31-36); Mean Corpuscular Hemoglobin 27 pg (27-31); Mean Corpuscular Volume 82 fL (80-94); Mean Platelet Volume 8.9 fL (7.4-10.4); Platelet Count 260 10^3/uL (150-450); Red Blood Count 4.19 10^6 /uL (4.18-5.48); Red Cell Distribution Width 19 % (10.5-15); White Blood Count 21.5 10^3/uL (3.5-10.8)
--- NOTE | 2018-06-26 22:11 | ED ---
HPI Diabetic - HPI Summary HPI Summary: This patient is a 72 year old M presenting to [facility] accompanied by his with a chief complaint of uncontrollable blood glucose over 400 today with PMHx of DMII. Patient has been taking 50mg of prednisone daily for renal disease. Patient was sent by PCP. Patient has no other complaints. - History Of Current Complaint Chief Complaint: EDDiabeticProb Time Seen by Provider: 06/26/18 22:00 Hx Obtained From: Patient Onset/Duration: Lasting Hours Timing: Constant Severity Initially: Mild Severity Currently: Mild Character: Alert Aggravating: Medication Change Alleviating: Nothing Associated Signs & Symptoms: Negative Related History: DM II - Allergies/Home Medications Allergies/Adverse Reactions: Allergies Allergy/AdvReac Type Severity Reaction Status Date / Time No Known Allergies Allergy Verified 06/26/18 21:32 Home Medications: Home Medications Furosemide TAB* [Lasix TAB*] 80 mg PO BID 06/26/18 [History Confirmed 06/26/18] predniSONE TAB* [Deltasone 20 MG TAB*] 30 mg PO QAM 06/26/18 [History Confirmed 06/26/18] PMH/Surg Hx/FS Hx/Imm Hx Endocrine/Hematology History: Reports: Hx Diabetes - METFORMIN Cardiovascular History: Reports: Hx Hypercholesterolemia Denies: Hx Congestive Heart Failure GI History: Denies: Hx Gastroesophageal Reflux Disease History: Reports: Hx Chronic Renal Failure Sensory History: Denies: Hx Cataracts, Hx Contacts or Glasses, Hx Hearing Aid, Hx Hearing Problem, Other Sensory Impairments Opthamlomology History: Denies: Hx Cataracts, Hx Contacts or Glasses, Other Sensory Impairments Psychiatric History: Reports: Hx Anxiety - NO TREATED Denies: Hx Depression - Surgical History Surgery Procedure, Year, and Place: WISDOM TEETH REMOVAL 2009. BASAL SKIN CA REMOVAL 10 YRS AGO Hx Anesthesia Reactions: No Infectious Disease History: No Infectious Disease History: Denies: Traveled Outside the [place] in Last 30 Days - Family History Known Family History: Negative: Cardiac Disease, Hypertension, Diabetes, Seizure Disorder - Social History Alcohol Use: None Hx Substance Use: No Substance Use Type: Reports: None Hx Tobacco Use: No Smoking Status (MU): Never Smoked Tobacco Review of Systems Positive: Other - elevated BG Gastrointestinal: Negative All Other Systems Reviewed And Are Negative: Yes Physical Exam - Summary Physical Exam Summary: Appearance: Well-appearing, Well-nourished, lying in bed comfortable Skin: Warm, dry, no obvious rash Eyes: sclera anicteric, no conjunctival pallor ENT: mucous membranes moist Neck: deferred Respiratory: No signs of respiratory distress Cardiovascular: Appears well perfused, pulses are nml Abdomen: deferred Musculoskeletal: Moving all 4 extremities without obvious discomfort Neurological: Awake and alert, mentation is normal, speech is fluent and appropriate Psychiatric: affect is normal, does not appear anxious or depressed Triage Information Reviewed: Yes Vital Signs On Initial Exam: Initial Vitals Temp Pulse Resp BP Pulse Ox 98.6 F 90 18 122/78 96 06/26/18 21:32 06/26/18 21:32 06/26/18 21:32 06/26/18 21:32 06/26/18 21:32 Vital Signs Reviewed: Yes Diagnostics - Vital Signs Vital Signs Temp Pulse Resp BP Pulse Ox 06/26/18 21:32 98.6 F 90 18 122/78 96 - Laboratory Lab Results: Lab Results 06/26/18 06/26/18 Range/Units 21:42 21:58 WBC 21.5 H (3.5-10.8) 10^3/uL RBC 4.19 (4.18-5.48) 10^6 /uL Hgb 11.2 L (14.0-18.0) g/dL Hct 35 L (36-46) % MCV 82 (80-94) fL MCH 27 (27-31) pg MCHC 33 (31-36) g/dL RDW 19 H (10.5-15) % Plt Count 260 (150-450) 10^3/uL MPV 8.9 (7.4-10.4) fL Neut % (Auto) Pending Lymph % (Auto) Pending [place] % (Auto) Pending Eos % (Auto) Pending Baso % (Auto) Pending Absolute Neuts (auto) Pending Absolute Lymphs (auto) Pending Absolute Monos (auto) Pending Absolute Eos (auto) Pending Absolute Basos (auto) Pending Absolute Nucleated RBC Pending Nucleated RBC % Pending Urine Color Yellow Urine Appearance Cloudy Urine pH 5.0 (5-9) Ur Specific [place] 1.025 (1.010-1.030) Urine Protein 3+(>=500 mg/dl) A (Negative) Urine Ketones Negative (Negative) Urine Blood 2+ A (Negative) Urine Nitrate Negative (Negative) Urine Bilirubin Negative (Negative) Urine Urobilinogen Negative (Negative) Ur Leukocyte Esterase Negative (Negative) Urine WBC (Auto) 1+(6-10/hpf) A (Absent) Urine RBC (Auto) Trace(0-2/hpf) (Absent) Urine Bacteria 1+ A (Absent) Hyaline Casts Present A (Absent) Granular Casts Present A (Absent) Urine Glucose 3+(>=500 mg/dl) A (Negative) Result Diagrams: 06/26/18 21:58 06/26/18 21:58 Lab Statement: Any lab studies that have been ordered have been reviewed, and results considered in the medical decision making process. - EKG 2141 Cardiac Rate: NL - 85 BPM EKG Rhythm: Sinus Rhythm Summary of EKG Findings: NSR at 85 BPM, P waves, QRS complex, and T waves are within normal limits, T waves and intervals are normal, no ischemic changes. This is a normal EKG. Diabetic Course/Dx - Course Course Of Treatment: 72 year old with uncontrollable blood glucose over 400 today with PMHx of DMII. Patient has been taking 50mg of prednisone daily for renal disease. Bloodwork and UA obtained. Blood glucose is 322. Patient is given 14 units of Insulin and BG improved to 274. Discussed with patient the effect of prednisone on BG. Instructed patient to increase insulin in the morning. Patient will be discharged home. - Diagnoses Differential Dx: Hyperglycemia Provider Diagnoses: Diabetes, Hyperglycemia Discharge - Sign-Out/Discharge Documenting (check all that apply): Patient Departure - discharge Patient Received Moderate/Deep Sedation with Procedure: No - Discharge Plan Condition: Critical Disposition: HOME Patient Education Materials: Diabetic Hyperglycemia (ED) Referrals: Tiago Tam MD [Primary Care Provider] - Additional Instructions: Your blood sugar is running high because of the prednisone. Follow your doctor' s recommendations for increasing your insulin dose come morning. The 2nd dose given tonight should further reduce your BS overnight. - Billing Disposition and Condition Condition: CRITICAL Disposition: Home - Attestation Statements Document Initiated by Scribe: Yes Documenting Scribe: Afshan Anguiano Provider For Whom Scribe is Documenting (Include Credential): Matt Marti MD Scribe Attestation: Afshan Bazzi, scribed for Matt Marti MD on 06/30/18 at 1831. Scribe Documentation Reviewed: Yes Provider Attestation: The documentation as recorded by the scribe, Afshan Anguiano accurately reflects the service I personally performed and the decisions made by me, Matt Marti MD Status of Hanna Document: Viewed
[2018-06-26 22:22] LABS: Albumin 1.9 g/dL (3.2-5.2); Albumin/Globulin Ratio 0.8 (1-3); BUN/Creatinine Ratio 28.5 (8-20); Calcium 7.1 mg/dL (8.6-10.3); EGFR African American 26.9 (>60); EGFR Non-African American 22.2 (>60); Globulin 2.3 g/dL (2-4); Potassium 4.2 mmol/L (3.5-5.0); Total Bilirubin 0.3 mg/dL (0.2-1.0); Total Protein 4.2 g/dL (6.4-8.9)
[2018-06-26 22:44] LABS: ABS Basophils 0.1 10^3/ul (0-0.2); ABS Eosinophils 0 10^3/ul (0-0.6); ABS Lymphocytes 0.3 10^3/ul (1.0-4.8); ABS Monocytes 0.6 10^3/ul (0-0.8); ABS Neutrophils 20.5 10^3/ul (1.5-7.7); ABS Nucleated RBC 0 10^3/ul; Eosinophil % 0 %; Lymphocyte % 1.5 %; Nucleated Red Blood Cells % 0
[2018-06-26 23:41] VITALS: BP 131/79
[2018-06-26] MEDS ORDERED: Insulin REGULAR(*) 1 UNITS UNIT SUBCUT ONE (23:41)
--- NOTE | 2018-06-28 06:20 | PN ---
Progress Note - Progress Note Date of Service: 06/26/18 Note: Urine culture preliminary grew enterococcus faecalis Patient not placed on abx prior to discharge will await sensitivities
--- NOTE | 2018-06-30 07:46 | PN ---
Progress Note - Progress Note Date of Service: 06/26/18 Note: Called patient has 7:45 AM and spoke with Discussed findings with the of sensitivities She states please fax this information over to Dr. Tam's office and does not want me to place on antibiotics at this time Faxed this information on 06/30/18 at 7:[address] Tam's office
== END 2018-06-27 00:04 | disposition home or self-care (01) ==
LOC: ED 21:30
DX: E11.22 Type 2 diabetes mellitus with diabetic chronic kidney disease (principal); N18.9 Chronic kidney disease, unspecified; E11.65 Type 2 diabetes mellitus with hyperglycemia; Z79.84 Long term (current) use of oral hypoglycemic drugs
CPT/HCPCS: 36415; 80053; 81003; 81015; 85025; 85060; 87077; 87086; 87186; 93005; 96360; 96372; 99283

== ENCOUNTER 2018-07-01 16:21 | Inpatient (IN) | payer MEDICARE, BC, OTHER ==
--- NOTE | 2018-07-01 18:45 | ED ---
Complex/Multi-Sys Presentation - HPI Summary HPI Summary: Pt is a 56 y/o M presenting to the ED with a chief complaint of R arm pain onset about four days ago. He is continuously saying things like Im dying, and Im as sick as a dog. He reports weakness, R arm pain, and shortness of breath. He denies chest pain, nausea, vomiting. He fell today over a curb and his nose has some new abrasions on it, but he denies falling on his arm when he fell. He was in the [facility] ED on 06/26/18 for increased blood sugar (>400) that is also monitored by his . His kidney function has been decreasing, and he has been recently losing weight, but since 06/23, he has gained about 9-10 pounds as kept track of by the pts . He has a recent UTI, dx'd on ED visit 06/26/18. NKDA. His urine from his last ED visit grew Enterococcus faecalis >100,000 that is sensitive to ciprofloxacin. states that this was not treated with antibiotics. She also states pt has not had fever. Pt's states pt is a DM and his glucose was not elevated this am, and pt took his usual insulin doses. 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 Em). Pt is also on Lasix bid, and still makes urine. Weight as tracked by the pts : 06/23 227 06/24 228 06/25 228 06/26 229 06/27 233 06/28 235 06/29 236 06/30 237 07/01 236.4 - History Of Current Complaint Chief Complaint: EDWeakness Time Seen by Provider: 07/01/18 17:21 Hx Obtained From: Patient, Family/[employer] - , Medical Records - prior ED visit Hx From Patient Unobtainable Due To: Other - difficult to get direct answers from pt, as he continually cries out in right arm pain, or states he wants dialysis, or states he feels like he is dying and asks multiple questions Onset/Duration: Gradual Onset, Lasting Days, Still Present Timing: Constant, Days Severity Currently: Moderate Severity Initially: Moderate Location: Pain At: - R arm Character: Dull Aggravating Factor(s): movement, touch Alleviating Factor(s): nothing Associated Signs And Symptoms: Positive: Weakness, SOB, Edema, Other - R arm pain. Negative: Chest Pain, Nausea, Vomiting Related History: Other - fell today over a curb (on Eliquis), recent ED visit for glucose >400 - Allergies/Home Medications Allergies/Adverse Reactions: Allergies Allergy/AdvReac Type Severity Reaction Status Date / Time No Known Allergies Allergy Verified 06/26/18 21:32 Home Medications: Home Medications Mycophenolate Mofetil 500 mg PO DAILY 07/01/18 [History Confirmed 07/01/18] PMH/Surg Hx/FS Hx/Imm Hx Previously Healthy: No Endocrine/Hematology History: Reports: Hx Diabetes - type II on insulin Cardiovascular History: Reports: Hx Hypercholesterolemia Denies: Hx Congestive Heart Failure GI History: Denies: Hx Gastroesophageal Reflux Disease History: Reports: Hx Chronic Renal Failure - stage III, sees Dr. Em Sensory History: Denies: Hx Cataracts, Hx Contacts or Glasses, Hx Hearing Aid, Hx Hearing Problem, Other Sensory Impairments Opthamlomology History: Denies: Hx Cataracts, Hx Contacts or Glasses, Other Sensory Impairments Psychiatric History: Reports: Hx Anxiety - takes Klonopin bid Denies: Hx Depression - Cancer History Cancer Type, Location and Year: BASAL SKIN CA - Surgical History Surgery Procedure, Year, and Place: WISDOM TEETH REMOVAL 2009. BASAL SKIN CA REMOVAL 10 YRS AGO. 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 Lives: With Family Alcohol Use: None Hx Substance Use: No Substance Use Type: Reports: None Hx Tobacco Use: No Smoking Status (MU): Never Smoked Tobacco Review of Systems Constitutional: Negative Eyes: Negative Positive: Other - abasion on nose, no epistaxis after fall today Negative: Chest Pain Positive: Shortness Of Breath Negative: Vomiting, Nausea Positive: no symptoms reported Positive: Edema, Other - R arm pain Positive: Other - abrasions on nose Positive: Weakness Psychological: Normal All Other Systems Reviewed And Are Negative: Yes Physical Exam - Summary Physical Exam Summary: Appearance: Ill-appearing, moderate pain distress, well-nourished Skin: Warm, color reflects adequate perfusion, dry, abrasions on nose. Head: no cephalohematoma Eyes: Conjunctiva clear, PERRL, EOMI, no nystagmus ENT: Abrasions on nose. No epistaxis. Teeth intact Neck: Supple, no nodes, no JVD, no spinal tenderness Respiratory: Lungs clear, normal breath sounds, no respiratory distress Cardio: RRR, No murmur, pulses normal, brisk capillary refill Abdomen: Soft, nontender Bowel sounds: Present Musculoskeletal: No calf tenderness. Edema R arm, erythema of R upper and forearm. Good ROM of R arm but it is painful. Edema of L arm and bilateral LE. Psychological: Anxious Neuro: Alert, muscle tone normal, no focal deficit, facial symmetry Triage Information Reviewed: Yes Vital Signs On Initial Exam: Initial Vitals Temp Pulse Resp BP Pulse Ox 98.7 F 104 18 117/78 100 07/01/18 16:30 07/01/18 16:30 07/01/18 16:30 07/01/18 16:30 07/01/18 16:30 Vital Signs Reviewed: Yes Diagnostics - Vital Signs Vital Signs Temp Pulse Resp BP Pulse Ox 07/01/18 17:49 89 130/77 95 07/01/18 17:20 90 114/74 94 07/01/18 17:00 93 96 07/01/18 16:49 99 105/78 92 07/01/18 16:30 98.7 F 104 18 117/78 100 - Laboratory Result Diagrams: 07/01/18 19:04 07/01/18 19:04 Lab Statement: Any lab studies that have been ordered have been reviewed, and results considered in the medical decision making process. - CT Brain ct CT Interpretation Completed By: Radiologist Summary of CT Findings: 1. There is age-related diffuse cerebral and cerebellar volume loss and chronic microvascular ischemic disease. 2. No acute intracranial pathology. ED physician has reviewed this report. Complex Multi-Symp Course/Dx Course Of Treatment: Pt is a 56 y/o M presenting to the ED with a chief complaint of R arm pain. He is continuously saying things like Im dying, and Im as sick as a dog. He reports weakness, R arm pain, and shortness of breath. He denies chest pain, nausea, vomiting. He fell today over a curb and his nose has some new abrasions on it, but he denies falling on his arm when he fell. Both and pt state they are not concerned about the fall, that it was not syncope. They, especially the pt, are concerned about generalized weakness , and right arm pain. He has a recent UTI. NKDA. His urine from his last visit to the ED on 06/26/18 for elevated glucose grew Enterococcus faecalis >100,000 organisms that is sensitive to cipro. This was not treated with antibiotics per 's request that results be faxed to Dr. Tam (progress note reviewed). The pt takes mycophenolic acid and prednisone for his kidneys for autoimmune disease per the . 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 Tam his PCP. The pt will receive US of R arm to ensure no DVT, despite being on eliquis, and a brain CT to ensure no head trauma, brain bleed since pt is on Eliquis. He will also had CT C-spine and CT maxillofacial to ensure no fractures. Pt will have plain xrays of his right arm and his chest. Brain CT shows 1. There is age- related diffuse cerebral and cerebellar volume loss and chronic microvascular ischemic disease. 2. No acute intracranial pathology. Pt will be signed out to Dr. Marti pending maxillofacial CT, C-spine CT, R elbow XR, R humerus XR, chest XR, an EKG, and labs. - Diagnoses Differential Diagnoses/HQI/PQRI: Closed Cranial Trauma, CVA, Metabolic Abnormality, Sepsis, Urinary Tract Infection Provider Diagnoses: Chronic kidney disease, stage 4 (severe), UTI (urinary tract infection), Right arm pain, Fall (on)(from) sidewalk curb, initial encounter, Generalized weakness , Edema extremities Discharge - Sign-Out/Discharge Documenting (check all that apply): Sign-Out Patient Signing out patient TO: Matt Marti - 1900 07/01/18, pending CT's, xrays, EKG and labs All imaging exams completed and their final reports reviewed: No Patient Received Moderate/Deep Sedation with Procedure: No - Discharge Plan Condition: Stable Disposition: ADMITTED TO [facility] - Billing Disposition and Condition Condition: STABLE Disposition: Admitted to [facility] - Attestation Statements Document Initiated by Hanna: Yes Documenting Scribe: Pearl Coronado Provider For Whom Hanna is Documenting (Include Credential): Dr. Tawnya Musa MD. Scribe Attestation: Pearl Bazzi, scribed for Dr. Tawnya Musa MD. on 07/01/18 at 2225. Scribe Documentation Reviewed: Yes Provider Attestation: The documentation as recorded by the scribe, Pearl Coronado accurately reflects the service I personally performed and the decisions made by me, Dr. Tawnya Musa MD. Status of Scribe Document: Viewed
[2018-07-01 19:13] LABS: ABS Basophils 0.1 10^3/ul (0-0.2); ABS Eosinophils 0 10^3/ul (0-0.6); ABS Lymphocytes 0.2 10^3/ul (1.0-4.8); ABS Monocytes 0.1 10^3/ul (0-0.8); ABS Neutrophils 19.1 10^3/ul (1.5-7.7); ABS Nucleated RBC 0 10^3/ul; Eosinophil % 0.1 %; Hematocrit 35 % (36-46); Hemoglobin 11.8 g/dL (14.0-18.0); Mean Corpuscular HGB Conc 33 g/dL (31-36); Mean Corpuscular Hemoglobin 28 pg (27-31); Mean Corpuscular Volume 83 fL (80-94); Mean Platelet Volume 9.1 fL (7.4-10.4); Nucleated Red Blood Cells % 0; Platelet Count 291 10^3/uL (150-450); Red Blood Count 4.28 10^6 /uL (4.18-5.48); Red Cell Distribution Width 19 % (10.5-15); White Blood Count 19.5 10^3/uL (3.5-10.8)
[2018-07-01 19:28] LABS: Activated Partial Thrombo Time 29.4 seconds (26.0-36.3); INR 0.92 (0.77-1.02)
[2018-07-01 19:36] LABS: ALT 27 U/L (7-52); Albumin/Globulin Ratio 0.7 (1-3); Alkaline Phosphatase 106 U/L (34-104); BUN/Creatinine Ratio 35.3 (8-20); Blood Urea Nitrogen 106 mg/dL (6-24); CO2 Carbon Dioxide 21 mmol/L (22-32); Calcium 7.9 mg/dL (8.6-10.3); Chloride 109 mmol/L (101-111); EGFR African American 24.9 (>60); EGFR Non-African American 20.6 (>60); Globulin 2.9 g/dL (2-4); Glucose 201 mg/dL (70-100); Magnesium 1.7 mg/dL (1.9-2.7); Sodium 141 mmol/L (135-145); Total Protein 4.9 g/dL (6.4-8.9)
[2018-07-01 19:38] LABS: Troponin I 0.18 ng/mL (<0.04)
[2018-07-01 20:17] LABS: AST 25 U/L (13-39); Anion Gap 11 mmol/L (2-11); Potassium 4.5 mmol/L (3.5-5.0); TSH (Thyroid Stimulating Horm) 3.99 mcIU/mL (0.34-5.60)
[2018-07-01 20:41] LABS: Urine Appearance Turbid; Urine Bacteria Absent (Absent); Urine Bilirubin Negative (Negative); Urine Blood 2+ (Negative); Urine Color Yellow; Urine Glucose 3+(>=500 mg/dL) (Negative); Urine Ketones Negative (Negative); Urine Nitrite Negative (Negative); Urine Protein 3+(>=500 mg/dL) (Negative); Urine Red Blood Cell 1+(3-5/hpf) (Absent); Urine Specific Gravity 1.017 (1.010-1.030); Urine Urobilinogen Negative (Negative); Urine White Blood Cell Absent (Absent)
--- NOTE | 2018-07-01 21:17 | ED ---
Progress - Progress Note Progress Note: An EKG, taken 1852, reveals NSR at 91 BPM, P waves, QRS complex, and T waves are within normal limits, T waves and intervals are normal, no ischemic changes. This is a normal EKG. CXR reveals, per ED physician, no acute process. Pending official report. Forearm XR reveals, per ED physician, no acute process. Pending official report. Humerus XR, per ED physician, no acute process. Pending official report. Elbow XR reveals, per ED physician, no acute process. Pending official report. CT Maxillofacial reveals, per radiologist, IMPRESSION: No acute maxillofacial fracture. ED physician has reviewed this radiology report. CT C-Spine reveals, per radiologist, IMPRESSION: 1. No acute cervical spine fracture. 2. There are bilateral pleural effusions present at the lung apices. ED physician has reviewed this radiology report. US Venous Doppler Study reveals, per radiologist, No acute findings. No evidence of deep vein thrombosis. ED physician has reviewed this radiology report. Course/Dx - Course Course Of Treatment: Pt is a 56 y/o M presenting to the ED with a chief complaint of R arm pain. He is continuously saying things like Im dying, and Im as sick as a dog. He reports weakness, R arm pain, and shortness of breath. Patient was signed out by Dr. Musa at end of shift, pending multiple imaging results. We discussed patient care with Dr. Bynum (Hospitalist) at 2121 and they agreed to admit the patient. Patient will be admitted with a dx of UTI, right arm swelling. The patient is agreeable with this plan. - Diagnoses Provider Diagnoses: Chronic kidney disease, stage 4 (severe), UTI (urinary tract infection), Right arm pain, Fall (on)(from) sidewalk curb, initial encounter, Generalized weakness , Edema extremities - Provider Notifications Discussed Care Of Patient With: Mya Bynum - Hospitalist Time Discussed With Above Provider: 21:22 - We discussed patient care with Dr. Bynum (Hospitalist) at 2121 and they agreed to admit the patient. Instructed by Provider To: Admit As Inpatient Discharge - Sign-Out/Discharge Documenting (check all that apply): Patient Departure - Admission, Receiving Sign-Out Receiving patient FROM: Tawnya Musa Patient Received Moderate/Deep Sedation with Procedure: No - Discharge Plan Condition: Stable Disposition: ADMITTED TO [facility] - Billing Disposition and Condition Condition: STABLE Disposition: Admitted to [facility] - Attestation Statements Document Initiated by Hanna: Yes Documenting Hanna: Yuni Campos Provider For Whom Hanna is Documenting (Include Credential): MD Nichol Davilaibsarai Attestation: Yuni Bazzi scribed for Matt Marti MD on 07/02/18 at 0436. Scribe Documentation Reviewed: Yes Provider Attestation: The documentation as recorded by the Yuni reyez accurately reflects the service I personally performed and the decisions made by Matt roth MD Status of Scralexandra Document: Viewed
[2018-07-01] MEDS ORDERED: ALBUMIN HUMAN 25% IV ONE (21:50)
[2018-07-01] MEDS ORDERED: Furosemide IV* 10 MG/ML VIAL (40 MG) IV SLOW PU ONE (21:55)
[2018-07-01] MEDS ORDERED: Dextrose 50% Syringe 50 ML* 25 GM/50 ML SYRINGE IV PUSH PRN (21:55)
[2018-07-01] MEDS ORDERED: Magnesium Sulfate 1 GM IV* 1 GM/100 ML BAG IV ONE (21:55)
[2018-07-01 22:22] LABS: Phosphorus 5.1 mg/dL (2.5-5.0)
[2018-07-01] MEDS ORDERED: Aspirin 81 mg CHEW TAB* 81 MG TAB.CHEW PO ONE (22:24)
[2018-07-01] MEDS: Ampicillin ADVAN(*) 1 GM in NS 0.9% 50 ML* 50 ML IVPB SCH (23:06)
[2018-07-01 23:29] LABS: Troponin I 0.16 ng/mL (<0.04)
[2018-07-02] MEDS: clonazePAM TAB(*) 0.5 MG PO PRN (00:11)
--- NOTE | 2018-07-02 00:40 | HP ---
CC: Dr. Tam; Dr. Minor; Dr. Em.* HISTORY AND PHYSICAL: DATE OF ADMISSION: 07/01/18 PRIMARY CARE PROVIDER: Dr. Tam. CONSULTING TRUCK DISPATCHER: Dr. Minor. MY ATTENDING PHYSICIAN WHILE IN THE HOSPITAL: Dr. Mya Garvin * (report dictated by Kurtis Hyman NP). CHIEF COMPLAINT: 1. Fall. 2. Weakness. HISTORY OF PRESENT ILLNESS: Mr. Harden is a 72-year-old male patient with an extensive past medical history. He has a history of diabetes. 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 He is on Apixaban for this per the recommendation of Dr. Em according to the last discharge summary. Also a history of hypertension. He is coming into the ED today stating that today he was walking. He felt weak. He got his foot caught on a curb or a step and he fell. Through the day leading up to this he has been feeling weak, he has been feeling unwell. He says he has gained about 10 pounds according to the 's measurements. He has been more swollen. He denied any shortness of breath, denies having any chest pain. He recently was started on CellCept. He is taking it once a day. At this point, he is also on 60 mg of prednisone. Denied any recent fevers. He denies any abdominal pain. No dysuria. No frequency. There was concern because of the increasing weakness. We came into the ED to evaluate, a troponin was checked, it was 0.18. Because of the weight gain and the weakness and the fact that 5 days ago he was found to have a UTI based on culture report, we were asked to evaluate for admission. PAST MEDICAL HISTORY: Significant for: 1. Diabetes. 2. Nephrotic syndrome secondary to FSGS. 3. Anxiety. 4. BPH 5. Hyperlipidemia. 6. Question of a renal venous thrombosis, again per the last discharge summary was put on apixaban. PAST SURGICAL HISTORY: He has had a polypectomy. HOME MEDICATIONS: Include: 1. Mycophenolate 500 mg daily. 2. Prednisone 40 mg in the morning, 20 mg at bedtime. 3. Benadryl 25 mg at bedtime. 4. Klonopin 0.5 mg daily as needed. 5. Flomax 0.4 mg daily. 6. Potassium 20 mEq p.o. daily. 7. Zofran 4 mg every 6 hours as needed. 8. Insulin NPH 8 units in the p.m. and 16 units in the a.m. 9. Lasix 80 mg p.o. b.i.d. 10. B12 1000 mcg daily. 11. Candesartan 32 mg at bedtime. 12. Lipitor 40 mg daily. 13. Apixaban 2.5 mg daily. ALLERGIES TO MEDICATIONS: Include no known drug allergies. FAMILY HISTORY: His mother had lymphoma, father had a history of CAD and [place]. SOCIAL HISTORY: He does not smoke. He does not drink. Surrogate decision maker is his . REVIEW OF SYSTEMS: There is no documented fever. He does admit to about a 10- pound weight change. He denies having any double vision. There is no ear discharge. He denies having any rhinorrhea. There is no sore throat. There is no thyroid enlargement. He denies having any chest pain. There is no orthopnea. There is no nocturnal dyspnea. There is was no orthopnea. He denied any abdominal pain. No nausea, no vomiting. There is no dysuria. He denied having any frequency. There was no seizure. No loss of consciousness, no pruritus, and no skin ulcerations. Review of 14 systems completed and all others negative. PHYSICAL EXAMINATION GENERAL: At this time, Mr. Harden is a 72-year-old male patient. He is sitting in the ED stretcher. He does not appear to be in any acute distress. He appears to be well nourished and well developed. VITAL SIGNS: Blood pressure 113/83 with a pulse of 89, respirations were 20, O2 sat 95%, temperature 98.7. HEENT: Head: Atraumatic and normocephalic. Eyes: EOMs intact. Sclerae anicteric and not pale. NECK: Supple. Throat: Oral mucosa appears to be moist. No oropharyngeal erythema. LUNGS: Clear to auscultation bilaterally. There was no wheezes, rales, or rhonchi. HEART: Heart sounds S1, S2. He had a regular rate and rhythm. There were no murmurs, rubs, or gallops. ABDOMEN: Soft. It was flat, nontender. Bowel sounds were present. EXTREMITIES: Pulses were 2+ throughout. He had +3 to 4 pitting edema to the lower extremities bilaterally up to above the knees and +3 to 4+ in the arms bilaterally as well. He appeared to be anasarcic. He had 5/5 strength. NEUROLOGIC: He is awake, he alert, he is oriented x3. Tongue is midline. [employer] Consultant are equal. No gross focal deficits. SKIN: Intact with the exception he has an abrasion to the front of his face. LABORATORY DATA: His labs revealed a WBC of 19.5, RBC of 4.28, hemoglobin of 11.8, hematocrit of 35, platelet count of 291, INR 0.92, PTT of 29.4. Sodium 141, potassium 4.5, chloride of 109, bicarb 21, BUN 106, creatinine of 3, glucose of 201, lactic 1.5, calcium 7.9, mag 1.7, total bili 0.3, AST 25, ALT 27 , alk phos 106, troponin 0.18. Albumin was 2, BNP 67. Urine showed 3+ protein , 2+ blood, 1+ rbc, 3+ glucose. IMAGING: Multiple imaging in the ED. Brain CT showed age-related diffuse cerebral and cerebellar volume loss and chronic microvascular ischemic disease. No acute intracranial pathology. Cervical spine showed no acute cervical fracture. Bilateral pleural effusions present in the lung apices. Maxillofacial CT showed no acute maxillofacial fracture. Venous Doppler: No acute findings. No evidence of DVT. Chest x-ray showed small effusions bilaterally and some pulmonary edema, but no infiltrates were noted. He had a forearm x-ray. I do not appreciate a gross fracture. Elbow x-ray did not show any again gross fracture that I could see. Humerus x-ray which again showed no gross or obvious fracture. We will await official reports. Old medical records reviewed. ASSESSMENT AND PLAN: Mr. Harden is a 72-year-old male patient with a complex medical history, coming into the ED today with complaints of fall and weakness. He will be admitted under inpatient status for: 1. Weakness. Again, this is multifactorial. It could be secondary to the elevated BUN, although he is not having any neurological findings related to this at this point. I could also certainly be related to the urinary tract infection. I will place him on ampicillin for this. I will continue to monitor this. I do note the white count of 19.5, but that could be secondary to the steroids, so I will panculture him and we will continue to follow. I will consider a PT evaluation as well. 2. Anasarca. Again this is secondary to the nephrotic syndrome due to the FSGS. I did touch base with Dr. Minor and Dr. Em. Dr. Minor will be evaluating the patient tomorrow. Recommendations are to go ahead and give him forced diuresis with 75 g of albumin upfront, then 4 g an hour thereafter and give him 80 of Lasix b.i.d. and continue to follow him closely. 3. Diabetes. Continue with lispro sliding scale and his NPH. 4. Anxiety. Continue supportive care. 5. Benign prostatic hypertrophy. Continue with his prostate medications. 6. Hyperlipidemia. Continue statin therapy. 7. Hypertension. Continue meds as prescribed. 8. Question of renal vein thrombosis. He is on Apixaban. 9. Urinary tract infection. I will place him on ampicillin. He grew out enterococcus which is pansensitive. 10. Elevated troponin. Etiology is unclear. He is not having any chest pain. I do think we need to trend this, place him on telemetry. I will go ahead and give him a baby aspirin right now. We will trend these troponins. We will check and echo. His EKG appeared to be stable, and we will follow up an EKG in the morning. 11. Fluids, electrolytes, and nutrition: He can have a consistent carb diet and a renal diet. TIME SPENT ON ADMISSION: 60 minutes. Greater than half the time spent face-to - face with the patient obtaining my history and physical. The other half time spent going over the plan of care with patient, implementing the plan of care. I discussed the plan of care with my attending Dr. Garvin, and she is in agreement. KURTIS HYMAN NP [id number]/[facility] #: [id number] JACQUELYN
[2018-07-02 03:08] LABS: Troponin I 0.12 ng/mL (<0.04)
[2018-07-02] MEDS: Albumin Human 25%* 25 GM/100 ML BTL IV SCH ×4 (05:35→18:40)
[2018-07-02 07:09] LABS: Troponin I 0.13 ng/mL (<0.04)
[2018-07-02 07:33] LABS: Anion Gap QNS mmol/L (2-11); BUN/Creatinine Ratio QNS (8-20); Blood Urea Nitrogen QNS mg/dL (6-24); CO2 Carbon Dioxide QNS mmol/L (22-32); Calcium QNS mg/dL (8.6-10.3); Chloride QNS mmol/L (101-111); EGFR African American QNS (>60); EGFR Non-African American QNS (>60); Glucose QNS mg/dL (70-100); Potassium QNS mmol/L (3.5-5.0); Sodium QNS mmol/L (135-145)
--- NOTE | 2018-07-02 08:19 | PN ---
Subjective Date of Service: 07/02/18 Interval History: C/O R arm pain. No cough, SOB, chest pain. Objective Active Medications: Apixaban (Eliquis*) 2.5 mg PO DAILY [facility] Atorvastatin Calcium (Lipitor*) 40 mg PO DAILY [facility] Clonazepam (Klonopin Tab(*)) 0.5 mg PO DAILY PRN PRN Reason: ANXIETY Last Admin: 07/02/18 00:11 Dose: 0.5 mg Dextrose (D50w Syringe 50 Ml*) 12.5 gm IV PUSH .FOR FS < 60 - SS PRN PRN Reason: FS < 60 Furosemide (Lasix Iv*) 80 mg IV SLOW PU 0800,1700 [facility] Albumin Human (Albumin Human 25%*) 25 gm in 100 mls @ 16 mls/hr IV Q6H [facility] Last Admin: 07/02/18 05:35 Dose: 16 mls/hr Ampicillin Sodium 1 gm/ Sodium (Chloride) 50 mls @ 200 mls/hr IVPB Q24H [facility] Last Admin: 07/01/18 23:06 Dose: 200 mls/hr Insulin Human Lispro (Humalog*) 0 units SUBCUT AC [facility]; Protocol Insulin Human NPH (Insulin Nph(*)) 16 units SUBCUT QAM [facility] Insulin Human NPH (Insulin Nph(*)) 8 units SUBCUT QPM [facility] Mycophenolate Mofetil (Cellcept Tab(*)) 500 mg PO DAILY [facility] Prednisone (Deltasone Tab*) 40 mg PO QAM [facility] Tamsulosin HCl (Flomax Cap*) 0.4 mg PO DAILY [facility] Valsartan (Diovan Tab*) 160 mg PO BEDTIME [facility]; Protocol Vital Signs - 8 hr 07/02/18 07/02/18 07/02/18 01:52 02:38 03:09 Temperature 97.0 F Pulse Rate 84 83 Respiratory 18 16 Rate Blood Pressure 107/76 (mmHg) O2 Sat by Pulse 97 Oximetry 07/02/18 05:52 Temperature Pulse Rate 87 Respiratory Rate Blood Pressure (mmHg) O2 Sat by Pulse Oximetry Oxygen Devices in Use Now: None Appearance: Alert, partly up in bed. In poor spirits, otherwise looks comfortable. Eyes: No Scleral Icterus Extremities: No Clubbing, Cyanosis, - - 2 - 3+ edema all extremities Skin: No Rash or Ulcers, No Nodules or Sclerosis, - Neurological: Alert and Oriented x 3, NL Sensation Result Diagrams: 07/01/18 19:04 07/02/18 06:00 Assess/Plan/Problems-Billing Assessment: - Patient Problems (1) Nephrotic syndrome Current Visit: No Status: Acute Code(s): N04.9 - NEPHROTIC SYNDROME WITH UNSPECIFIED MORPHOLOGIC CHANGES SNOMED Code(s): 72626516 Comment: - Secondary to FSGS as per Dr. Em. - Continue IV albumin infusion and furosemide IV bid. Reduce Prednisone to 40mg daily due to weakness. Consider steroid sparing agent like cyclophosphamide or cyclosporine. BMP 07/03. - Weight down to 230 lbs. (2) Steroid myopathy Current Visit: Yes Status: Acute Code(s): G72.0 - DRUG-INDUCED MYOPATHY; T38.0X5A - ADVERSE EFFECT OF GLUCOCORT/SYNTH ANALOG, INIT SNOMED Code(s): 88329461 Comment: Most likely cause of weakness. CK and serum myoglobin add-on requested. Prednisone reduced to 40 mg daily. Will discuss with Dr. Minor. (3) Constipation Current Visit: No Status: Acute Code(s): K59.00 - CONSTIPATION, UNSPECIFIED SNOMED Code(s): 08109429 Comment: -Continue Colace/Senna (4) Full code status Current Visit: No Status: Acute Code(s): Z78.9 - OTHER SPECIFIED HEALTH STATUS SNOMED Code(s): 343535218 Comment: Pt requests that his give him an enema here daily as at home. (5) Diabetes Current Visit: No Status: Acute Code(s): E11.9 - TYPE 2 DIABETES MELLITUS WITHOUT COMPLICATIONS SNOMED Code(s): 50321157 Comment: - HgbA1c (05/16/18) =7.6. - continue insulin nph 16 + 8 u with lispro ISS (6) HTN (hypertension) Current Visit: No Status: Acute Code(s): I10 - ESSENTIAL (PRIMARY) HYPERTENSION SNOMED Code(s): 25758917 Comment: - continue Valsartan. (7) Benign prostate hyperplasia Current Visit: No Status: Acute Code(s): N40.0 - BENIGN PROSTATIC HYPERPLASIA WITHOUT LOWER URINRY TRACT SYMP SNOMED Code(s): 894822942 Comment: - cont home tamsulosin (8) UTI (urinary tract infection) Current Visit: Yes Status: Acute Comment: E. faecalis 06/26/18, reich-sens. Continue IV ampi.
[2018-07-02] MEDS ORDERED: Mycophenolate Mofetil TAB(*) 500 MG PO SCH (09:00)
[2018-07-02] MEDS: Tamsulosin CAP* 0.4 MG PO SCH (09:53)
[2018-07-02] MEDS: Apixaban* 2.5 MG TAB PO SCH (09:53)
[2018-07-02] MEDS: Insulin LISPRO* 1 UNITS UNIT SUBCUT SCH ×3 (09:53→18:33)
[2018-07-02] MEDS: predniSONE TAB* 20 MG PO SCH (09:53)
[2018-07-02] MEDS: Atorvastatin* 40 MG TAB PO SCH (09:53)
[2018-07-02] MEDS: oxyCODONE TAB* 5 MG TAB PO PRN (10:40)
[2018-07-02] MEDS: Furosemide IV* 10 MG/ML VIAL (40 MG) IV SLOW PU SCH ×2 (10:41→18:54)
[2018-07-02] MEDS: Insulin NPH(*) 1 UNITS UNIT SUBCUT SCH (10:41)
[2018-07-02 10:51] LABS: Myoglobin 232.9 ng/mL (17.4-105.7)
--- NOTE | 2018-07-02 11:27 | ECHO ---
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 Technical Comments: The study quality is fair. Completed at 1010. Left Ventricle: The left ventricular chamber size is normal. Mild concentric left ventricular hypertrophy is observed. Global left ventricular wall motion and contractility are within normal limits. There is normal left ventricular systolic function. The estimated ejection fraction is 60-65%. Abnormal left ventricular diastolic function is observed. Left Atrium: The left atrium is mild to moderately dilated. Right Ventricle: The right ventricle is mildly dilated. The right ventricular global systolic function is mildly reduced. Right Atrium: The right atrium is mildly dilated. Aortic Valve: The aortic valve is trileaflet. The aortic valve leaflets are mildly thickened. There is evidence of aortic sclerosis without stenosis. There is mild to moderate aortic regurgitation. There is no evidence of aortic stenosis. The measured aortic regurgitation pressure half-time is 362 msec. Mitral Valve: There is mitral annular calcification. The mitral valve leaflets are mildly thickened. There is trace to mild mitral regurgitation. There is no evidence of mitral stenosis. Tricuspid Valve: The tricuspid valve leaflets are normal. There is mild tricuspid regurgitation. The right ventricular systolic pressure is estimated at 46 mmHg. There is evidence of mild pulmonary hypertension. There is no tricuspid stenosis. Pulmonic Valve: The pulmonic valve structure is not well visualized. There is a trace pulmonic regurgitation. There is no pulmonic stenosis. Pericardium: There is no significant pericardial effusion. A pericardial fat pad is visualized. Aorta: There is mild dilatation of the ascending aorta. There is no dilatation of the aortic arch. There is mild dilatation of the aortic root. Pulmonary Artery: The main pulmonary artery is not well visualized. Venous: The inferior vena cava is dilated. There is a greater than 50% respiratory change in the inferior vena cava dimension. Conclusions The left ventricular chamber size is normal. Mild concentric left ventricular hypertrophy is observed. Global left ventricular wall motion and contractility are within normal limits. There is normal left ventricular systolic function. The estimated ejection fraction is 60-65%. The left atrium is mild to moderately dilated. The right ventricle is mildly dilated. The right ventricular global systolic function is mildly reduced. There is evidence of aortic sclerosis without stenosis. There is mild to moderate aortic regurgitation. There is evidence of mild pulmonary hypertension. Compared to prior study from 04/2018, the RV size and funtion was previously reported normal and prior PA systolic pressure was unable to be estimated. Measurements Name Value Normal Range RVIDd (AP) 2D 4.1 cm (0.9 - 2.6) RVDdMajor (2D) 4.9 cm (2.2 - 4.4) RAd ISD 4CH 6 cm (3.4 - 4.9) RA (A4C)W 4.7 cm (2.9 - 4.6) IVSd (2D) 1.1 cm (0.6 - 1) LVPWd (2D) 1.1 cm (0.6 - 1) LVIDd (2D) 5 cm (3.6 - 5.4) LVIDs (2D) 3.6 cm - LV FS (2D) 27 % (25 - 45) Aortic Annulus 2.2 cm (1.4 - 2.6) Ao root diameter (2D) 3.7 cm (2.1 - 3.5) Ascending Ao 4 cm (2.1 - 3.4) Aortic arch 3.1 cm (1.8 - 3.4) LA dimension (AP) 2D 3.9 cm (2.3 - 3.8) LAd ISD 4CH 6 cm (2.9 - 5.3) LA ISD 4CH W 5.5 cm (2.5 - 4.5) Name Value Normal Range LA ESV BP (A/L) index 37 ml/m2 - Name Value Normal Range MV E-wave Vmax 0.8 m/sec - MV deceleration time 254 msec - MV A-wave Vmax 1.24 m/sec - MV E:A ratio 0.7 ratio - LV septal e' Vmax 0.08 m/sec - LV lateral e' Vmax 0.11 m/sec - LV E:e' septal ratio 10 ratio - LV E:e' lateral ratio 7.3 ratio - Name Value Normal Range AV Vmax 2.7 m/sec - AV VTI 42 cm - AV mean gradient 8 mmHg - LVOT diameter 2 cm - LVOT Vmax 1.3 m/sec - LVOT VTI 30 cm - LVOT peak gradient 7 mmHg - LVOT mean gradient 3 mmHg - DOI (VTI) 0.7 ratio - MARGOTH (continuity VTI) 2.2 cm2 - AR PHT 362 msec - CLAUDIA Vmax 0.7 m/sec - Name Value Normal Range TR Vmax 3.1 m/sec - TR peak gradient 38 mmHg - RAP 8 mmHg - RVSP 46 mmHg - IVC diameter 2.3 cm - Name Value Normal Range PV Vmax 1.3 m/sec - PV peak gradient 6 mmHg -
[2018-07-02] MEDS ORDERED: Insulin NPH(*) 1 UNITS UNIT SUBCUT SCH (18:00)
[2018-07-02] MEDS: Mycophenolate Mofetil TAB(*) 500 MG PO SCH (20:30)
[2018-07-02] MEDS: Valsartan TAB* 160 MG PO SCH (20:30)
[2018-07-02] MEDS ORDERED: predniSONE TAB* 20 MG PO SCH (21:00)
[2018-07-02] MEDS ORDERED: Sodium Phosphate ADULT ENEMA* 118 ml bottle PR PRN (21:23)
--- NOTE | 2018-07-02 21:59 | CONS ---
NEPHROLOGY CONSULTATION: DATE OF CONSULT: 07/02/18 REQUESTING PHYSICIANS: Dr. De Paz/Kurtis Hyman NP REASON FOR CONSULTATION: Nephrotic syndrome. SERVICE: [facility] Nephrology. HISTORY OF PRESENT ILLNESS: Mr. 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 The patient reports that he has been feeling more weak. His foot got caught on the curb/step and he fell, reports that he did not lose consciousness. The patient has also had a 10-pound increase in weight. The patient was recently diagnosed with nephrotic syndrome when he had about 27 g of protein leak. The patient then underwent biopsy, which confirmed tissue diagnosis of focal segmental glomerulosclerosis. The patient has been following with Dr. Em. The patient has had hospitalizations for volume overload and weight gain when he was given albumin and diuresed and is on outpatient diuretic regimen. The patient was also recently started on prednisone, which he has taken for about 3 weeks at 40 mg in the morning and 20 mg at night. The patient reports weakness; however, reports that he has no energy. The patient is able to move all his extremities and walk. Reports feeling more sleepy. The patient was also started on mycophenolate MMF 500 mg twice a day. Per , he has been taking it only for 3 days now and has also been only taking 500 mg once a day. The patient is always anxious about his condition and repeatedly asking me if he was going to . The patient also had multiple questions about dialysis, which have been answered. PAST MEDICAL HISTORY: 1. Diabetes. 2. Focal segmental glomerulosclerosis. 3. Anxiety. 4. BPH. 5. Hyperlipidemia. HOME MEDICATIONS: 1. Mycophenolate 500 mg once a day. 2. Prednisone 40 mg in the morning, 20 mg at bedtime. 3. Benadryl 25 mg at bedtime. 4. Klonopin 0.5 mg daily as needed. 5. Flomax 0.4 mg daily. 6. Potassium 20 mEq p.o. daily. 7. Zofran 4 mg every 6 hours as needed. 8. Insulin NPH 8 units in the p.m. and 16 units in the a.m. 9. Lasix 80 mg p.o. b.i.d. 10. B12. 11. Candesartan 32 mg at bedtime. 12. Lipitor 40 mg daily. 13. Eliquis 2.5 mg daily. ALLERGIES: No known drug allergies. FAMILY HISTORY: Mother had lymphoma. Father had coronary artery disease and myocardial infarction. SOCIAL HISTORY: He does not smoke, does not drink. Surrogate decision maker is his . Per discussion with his , prior to this onset of swelling and significant weight gain, and shortness of breath with symptoms of nephrotic syndrome. The patient 2 months ago within perfect health, reports that he and his used to cycle 40 miles a day. 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 REVIEW OF SYSTEMS: As mentioned in the HPI. Other 14-point review of systems noted to be negative. PHYSICAL EXAM: Vitals: Blood pressure 113/83, pulse 89, respirations 20, oxygen saturation 95%, temperature noted to be 98.7. General: Alert, oriented , but occasionally falls asleep in the middle of conversation, then wakes up and has full conversation. Lungs: Clear to auscultation bilaterally. No wheezes, rales, or rhonchi. Heart: S1, S2 present. Regular rate and rhythm. Abdomen: Soft, nontender. Extremities: The patient is noted to have right upper extremity edema. Also noted to have bilateral lower extremity edema and anasarca. Good strength of his lower extremities. Neurologic: Alert, oriented. No focal deficits. DIAGNOSTIC STUDIES/LAB DATA: Labs from yesterday; WBC 19.5, hemoglobin 11.8, hematocrit 38, platelets 291,000. INR 0.92. Sodium 141, potassium 4.5, chloride 105, bicarb 21, BUN 106, creatinine 3, glucose noted to be 201. Lactic acid noted to be 1.5. Magnesium noted to be 1.7. Chest x-ray shows bilateral pleural effusions and some pulmonary edema. ASSESSMENT AND PLAN: A 72-year-old male with recent diagnosis of focal segmental glomerulosclerosis and nephrotic syndrome, admitted for: 1. Anasarca and volume overload secondary to nephrotic syndrome/focal segmental glomerulosclerosis. Unfortunately, focal segmental glomerulosclerosis is the most difficult to treat among nephrotic syndromes and usually resistant to multiple medications and if it is a nongenetic variant, can also recur in a new renal transplant. Hence, the patient may need a few trials to work out the immunosuppressive regimen that would work out for the patient. At this time, due to concern of possible steroid myopathy, the primary team has him on prednisone 40 mg once a day, can continue this for now and increase his mycophenolate to 500 mg twice a day as previously recommended by Dr. Em. The MMF will take some time to work and the patient has only been on it for 3 days. 2. Volume overload. At this time, agree with Dr. Em's recommendation and the patient is currently receiving 75 g of albumin upfront and then 4 g an hour thereafter with 80 mg of Lasix b.i.d. Will increase the lasix to tid. This has previously worked for the patient and we will evaluate progress and urine output on this. 3. The albumin infusion and Lasix are temporizing; however, the patient will also need good regimen as an outpatient to help with his nephrotic syndrome and the patient to continue his prednisone and mycophenolate. The plan is to repeat his 24- hour urine for protein evaluation in a month to see if his proteinuria has improved. 4. Acute on chronic kidney disease secondary to nephrotic syndrome. At this time, recommend plan above. The patient has multiple questions about dialysis and repeatedly asking if dialysis will make him feel better. I explained to the patient that with hemodialysis, he would gradually lose his [place] kidney function, and his [place] kidneys have multiple other roles other than detoxification and volume control. The patient does not need dialysis emergently at this time but will consider this if the patient's kidney function deteriorates. 5. Some worsening could also be secondary to the urinary tract infection, which he currently has and he is growing Enterococcus that is susceptible to ampicillin, can continue the ampicillin. 6. Hypoalbuminemia with significant risk for deep venous thrombosis as seen in nephrotic syndrome and the patient is currently on Eliquis and this is to be continued as his albumin level has been less than 2. 7. Other plan per the patient's primary medical team. 8. The patient's condition and prognosis were discussed in detail with the patient and his and all questions have been answered. TIME SPENT: Total time spent on the case and with the patient is equal to 60 minutes. [id number]/[facility] #: [id number] MTDD
[2018-07-02] MEDS: Ampicillin ADVAN(*) 1 GM in NS 0.9% 50 ML* 50 ML IVPB SCH (23:14)
[2018-07-03] MEDS: Albumin Human 25%* 25 GM/100 ML BTL IV SCH ×5 (02:16→23:19)
[2018-07-03] MEDS: Insulin LISPRO* 1 UNITS UNIT SUBCUT SCH ×3 (07:58→16:44)
[2018-07-03 08:07] LABS: Potassium 3.8 mmol/L (3.5-5.0)
[2018-07-03 08:13] LABS: BUN/Creatinine Ratio 35.7 (8-20); EGFR African American 28.7 (>60); EGFR Non-African American 23.7 (>60)
[2018-07-03] MEDS: Tamsulosin CAP* 0.4 MG PO SCH (09:55)
[2018-07-03] MEDS: Apixaban* 2.5 MG TAB PO SCH (09:55)
[2018-07-03] MEDS: Furosemide IV* 10 MG/ML VIAL (40 MG) IV SLOW PU SCH ×2 (09:55→17:47)
[2018-07-03] MEDS: predniSONE TAB* 20 MG PO SCH (09:55)
[2018-07-03] MEDS: Atorvastatin* 40 MG TAB PO SCH (09:55)
[2018-07-03] MEDS: Mycophenolate Mofetil TAB(*) 500 MG PO SCH ×2 (09:55→21:51)
[2018-07-03] MEDS: Insulin NPH(*) 1 UNITS UNIT SUBCUT SCH (09:55)
--- NOTE | 2018-07-03 17:42 | PN ---
Subjective Date of Service: 07/03/18 Interval History: Reports feeling weak.Episodes of hypoglycemia today Objective Active Medications: Apixaban (Eliquis*) 2.5 mg PO DAILY [facility] Last Admin: 07/03/18 09:55 Dose: 2.5 mg Atorvastatin Calcium (Lipitor*) 40 mg PO DAILY [facility] Last Admin: 07/03/18 09:55 Dose: 40 mg Clonazepam (Klonopin Tab(*)) 0.5 mg PO DAILY PRN PRN Reason: ANXIETY Last Admin: 07/02/18 00:11 Dose: 0.5 mg Dextrose (D50w Syringe 50 Ml*) 12.5 gm IV PUSH .FOR FS < 60 - SS PRN PRN Reason: FS < 60 Furosemide (Lasix Iv*) 80 mg IV TID [facility] Ampicillin Sodium 1 gm/ Sodium (Chloride) 50 mls @ 200 mls/hr IVPB Q24H [facility] Last Admin: 07/02/18 23:14 Dose: 200 mls/hr Albumin Human (Albumin Human 25%*) 25 gm in 100 mls @ 16 mls/hr IV 0530,1130, 1730,2330 [facility] Last Admin: 07/03/18 12:00 Dose: 16 mls/hr Insulin Human Lispro (Humalog*) 0 units SUBCUT AC [facility]; Protocol Last Admin: 07/03/18 16:44 Dose: Not Given Insulin Human NPH (Insulin Nph(*)) 8 units SUBCUT 0700,1500 [facility] Mycophenolate Mofetil (Cellcept Tab(*)) 500 mg PO BID [facility] Last Admin: 07/03/18 09:55 Dose: 500 mg Oxycodone HCl (Roxycodone Tab*) 2.5 mg PO Q3H PRN PRN Reason: PAIN Last Admin: 07/02/18 10:40 Dose: 2.5 mg Prednisone (Deltasone Tab*) 40 mg PO QAM [facility] Last Admin: 07/03/18 09:55 Dose: 40 mg Tamsulosin HCl (Flomax Cap*) 0.4 mg PO DAILY [facility] Last Admin: 07/03/18 09:55 Dose: 0.4 mg Valsartan (Diovan Tab*) 160 mg PO BEDTIME [facility]; Protocol Last Admin: 07/02/18 20:30 Dose: 160 mg Vital Signs - 8 hr 07/03/18 07/03/18 07/03/18 11:54 12:26 15:15 Temperature 97.5 F 98.0 F 97.2 F Pulse Rate 95 93 91 Respiratory 16 22 20 Rate Blood Pressure 123/70 141/83 120/69 (mmHg) O2 Sat by Pulse 99 99 93 Oximetry 07/03/18 16:36 Temperature 97.6 F Pulse Rate 99 Respiratory 25 Rate Blood Pressure 130/69 (mmHg) O2 Sat by Pulse 96 Oximetry Oxygen Devices in Use Now: None Eyes: No Scleral Icterus Neck: NL Appearance and Movements; NL JVP Respiratory: Symmetrical Chest Expansion and Respiratory Effort Cardiovascular: NL Sounds; No Murmurs; No JVD Extremities: - - 2+ Edema bilaterally Neurological: Alert and Oriented x 3 Result Diagrams: 07/01/18 19:04 07/03/18 07:27 Microbiology and Other Data: Microbiology 07/01/18 19:55 Aerobic Blood Culture - Preliminary Blood Venous No Growth Day 1 Anaerobic Blood Culture - Preliminary No Growth Day 1 07/01/18 19:04 Aerobic Blood Culture - Preliminary Blood Venous No Growth Day 1 Anaerobic Blood Culture - Preliminary No Growth Day 1 Assess/Plan/Problems-Billing Assessment: - Patient Problems (1) Nephrotic syndrome Current Visit: No Status: Acute Code(s): N04.9 - NEPHROTIC SYNDROME WITH UNSPECIFIED MORPHOLOGIC CHANGES SNOMED Code(s): 78992732 Comment: - 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 - Continue IV albumin infusion and furosemide IV.Will increase furosemide to tid -Will keep on dose d/w Dr Em 40 mg in am and 20 mg in pm -On MMF 500 mg po bid that the pt only started a few days ago as steroid sparing agent -Lost 2 pounds overnight -Strict weights daily (2) Steroid myopathy Current Visit: Yes Status: Acute Code(s): G72.0 - DRUG-INDUCED MYOPATHY; T38.0X5A - ADVERSE EFFECT OF GLUCOCORT/SYNTH ANALOG, INIT SNOMED Code(s): 06953046 Comment: Seems less likely.Pt c/o weakness but not really having any proximal muscle weakness.CK normal.Can consider EMG for more conclusive diagnosis if ongoing (3) UTI (urinary tract infection) Current Visit: Yes Status: Acute Comment: E. faecalis 06/26/18, reich-sens. Continue IV ampi. (4) Benign prostate hyperplasia Current Visit: No Status: Acute Code(s): N40.0 - BENIGN PROSTATIC HYPERPLASIA WITHOUT LOWER URINRY TRACT SYMP SNOMED Code(s): 113607888 Comment: - cont home tamsulosin (5) Constipation Current Visit: No Status: Acute Code(s): K59.00 - CONSTIPATION, UNSPECIFIED SNOMED Code(s): 00625431 Comment: -Continue Colace/Senna (6) Diabetes Current Visit: No Status: Acute Code(s): E11.9 - TYPE 2 DIABETES MELLITUS WITHOUT COMPLICATIONS SNOMED Code(s): 42920112 Comment: - HgbA1c (05/16/18) =7.6. - Recheck hbA1c -Will reduce NPH to 8 units in am and pm as pt had 2 episodes of hypoglycemia today Continue iss (7) HTN (hypertension) Current Visit: No Status: Acute Code(s): I10 - ESSENTIAL (PRIMARY) HYPERTENSION SNOMED Code(s): 84366302 Comment: - continue Valsartan.
[2018-07-03] MEDS: Valsartan TAB* 160 MG PO SCH (21:51)
[2018-07-03] MEDS: Furosemide IV* 10 MG/ML 10 ML VIAL (100 MG) IV SCH (21:51)
[2018-07-03] MEDS: Ampicillin ADVAN(*) 1 GM in NS 0.9% 50 ML* 50 ML IVPB SCH (23:23)
[2018-07-04 01:28] LABS: Urine Appearance Cloudy; Urine Bacteria Absent (Absent); Urine Bilirubin Negative (Negative); Urine Blood 1+ (Negative); Urine Color Yellow; Urine Glucose 2+(150 mg/dL) (Negative); Urine Ketones Negative (Negative); Urine Nitrite Negative (Negative); Urine Protein 3+(>=500 mg/dL) (Negative); Urine Red Blood Cell 1+(3-5/hpf) (Absent); Urine Specific Gravity 1.018 (1.010-1.030); Urine Urobilinogen Negative (Negative); Urine White Blood Cell Trace(0-5/hpf) (Absent)
[2018-07-04 01:32] LABS: Urine Creatinine 32.21 mg/dL; Urine Creatinine Concentration 32.21 mg/dL
[2018-07-04 02:13] LABS: UR Microalbumin (mg/L) > 1500.0 mg/L; Urine Microalbumin/Creatinine 4656.9 (<31)
[2018-07-04 02:16] LABS: Urine TP Concentration > 400 mg/dL
[2018-07-04 06:13] LABS: ABS Basophils 0 10^3/ul (0-0.2); ABS Eosinophils 0 10^3/ul (0-0.6); ABS Lymphocytes 0.1 10^3/ul (1.0-4.8); ABS Monocytes 0.1 10^3/ul (0-0.8); ABS Neutrophils 9.8 10^3/ul (1.5-7.7); ABS Nucleated RBC 0 10^3/ul; Eosinophil % 0.1 %; Hematocrit 29 % (36-46); Hemoglobin 9.5 g/dL (14.0-18.0); Lymphocyte % 1.3 %; Mean Corpuscular HGB Conc 33 g/dL (31-36); Mean Corpuscular Hemoglobin 28 pg (27-31); Mean Corpuscular Volume 83 fL (80-94); Mean Platelet Volume 9.4 fL (7.4-10.4); Nucleated Red Blood Cells % 0; Platelet Count 167 10^3/uL (150-450); Red Blood Count 3.42 10^6 /uL (4.18-5.48); Red Cell Distribution Width 20 % (10.5-15); White Blood Count 10.1 10^3/uL (3.5-10.8)
[2018-07-04] MEDS: Albumin Human 25%* 25 GM/100 ML BTL IV SCH ×3 (06:27→20:29)
[2018-07-04 06:29] LABS: Albumin 2.6 g/dL (3.2-5.2); BUN/Creatinine Ratio 33.3 (8-20); Calcium 7.8 mg/dL (8.6-10.3); EGFR African American 29.3 (>60); EGFR Non-African American 24.2 (>60); Potassium 3.9 mmol/L (3.5-5.0)
[2018-07-04] MEDS: Apixaban* 2.5 MG TAB PO SCH (08:40)
[2018-07-04] MEDS: predniSONE TAB* 20 MG PO SCH ×2 (08:40→08:47)
[2018-07-04] MEDS: Atorvastatin* 40 MG TAB PO SCH (08:40)
[2018-07-04] MEDS: Mycophenolate Mofetil TAB(*) 500 MG PO SCH ×2 (08:40→20:39)
[2018-07-04] MEDS: Furosemide IV* 10 MG/ML 10 ML VIAL (100 MG) IV SCH ×3 (08:40→20:42)
[2018-07-04] MEDS: Tamsulosin CAP* 0.4 MG PO SCH (08:42)
[2018-07-04] MEDS: Insulin NPH(*) 1 UNITS UNIT SUBCUT SCH ×2 (08:47→16:25)
[2018-07-04] MEDS: Insulin LISPRO* 1 UNITS UNIT SUBCUT SCH ×3 (08:47→16:12)
[2018-07-04] MEDS: clonazePAM TAB(*) 0.5 MG PO PRN (08:53)
--- NOTE | 2018-07-04 18:37 | PN ---
Subjective Date of Service: 07/04/18 Interval History: Discussed care with the patient.Pt asking if he is going to again? Pt requesting a allan has been difficult to get to the bathroom and is getting aggressive diuresis Objective Active Medications: Apixaban (Eliquis*) 2.5 mg PO DAILY [facility] Last Admin: 07/04/18 08:40 Dose: 2.5 mg Atorvastatin Calcium (Lipitor*) 40 mg PO DAILY [facility] Last Admin: 07/04/18 08:40 Dose: 40 mg Clonazepam (Klonopin Tab(*)) 0.5 mg PO BID [facility] Dextrose (D50w Syringe 50 Ml*) 12.5 gm IV PUSH .FOR FS < 60 - SS PRN PRN Reason: FS < 60 Furosemide (Lasix Iv*) 80 mg IV TID [facility] Last Admin: 07/04/18 13:11 Dose: 80 mg Ampicillin Sodium 1 gm/ Sodium (Chloride) 50 mls @ 200 mls/hr IVPB Q24H [facility] Last Admin: 07/03/18 23:23 Dose: 200 mls/hr Albumin Human (Albumin Human 25%*) 25 gm in 100 mls @ 16 mls/hr IV 0530,1130, 1730,2330 [facility] Last Admin: 07/04/18 13:09 Dose: 16 mls/hr Insulin Human Lispro (Humalog*) 0 units SUBCUT AC [facility]; Protocol Last Admin: 07/04/18 16:12 Dose: Not Given Insulin Human NPH (Insulin Nph(*)) 8 units SUBCUT 0700,1500 [facility] Last Admin: 07/04/18 16:25 Dose: 8 units Mycophenolate Mofetil (Cellcept Tab(*)) 500 mg PO BID [facility] Last Admin: 07/04/18 08:40 Dose: 500 mg Oxycodone HCl (Roxycodone Tab*) 2.5 mg PO Q3H PRN PRN Reason: PAIN Last Admin: 07/02/18 10:40 Dose: 2.5 mg Prednisone (Deltasone Tab*) 40 mg PO QAM [facility] Last Admin: 07/04/18 08:47 Dose: 40 mg Prednisone (Deltasone Tab*) 20 mg PO DAILY [facility] Last Admin: 07/04/18 08:40 Dose: 20 mg Tamsulosin HCl (Flomax Cap*) 0.4 mg PO DAILY [facility] Last Admin: 07/04/18 08:42 Dose: 0.4 mg Valsartan (Diovan Tab*) 160 mg PO BEDTIME [facility]; Protocol Last Admin: 07/03/18 21:51 Dose: 160 mg Vital Signs - 8 hr 07/04/18 07/04/18 07/04/18 11:14 13:08 13:25 Temperature 98.4 F 97.6 F 98.1 F Pulse Rate 92 92 95 Respiratory 20 17 19 Rate Blood Pressure 134/71 116/61 110/58 (mmHg) O2 Sat by Pulse 95 93 92 Oximetry 07/04/18 15:31 Temperature 96.8 F Pulse Rate 92 Respiratory 20 Rate Blood Pressure 119/69 (mmHg) O2 Sat by Pulse 98 Oximetry Oxygen Devices in Use Now: None Eyes: No Scleral Icterus Ears/Nose/Mouth/Throat: NL Teeth, Lips, Gums Neck: NL Appearance and Movements; NL JVP Respiratory: Symmetrical Chest Expansion and Respiratory Effort, Clear to Auscultation Cardiovascular: NL Sounds; No Murmurs; No JVD Abdominal: NL Sounds; No Tenderness; No Distention - 3+ bilateral pitting edema with scrotal edema Extremities: - Neurological: Alert and Oriented x 3 Result Diagrams: 07/04/18 05:56 07/04/18 05:56 Microbiology and Other Data: Microbiology 07/01/18 19:55 Aerobic Blood Culture - Preliminary Blood Venous No Growth Day 1 Anaerobic Blood Culture - Preliminary No Growth Day 1 07/01/18 19:04 Aerobic Blood Culture - Preliminary Blood Venous No Growth Day 1 Anaerobic Blood Culture - Preliminary No Growth Day 1 Assess/Plan/Problems-Billing Assessment: - Patient Problems (1) Nephrotic syndrome Current Visit: No Status: Acute Code(s): N04.9 - NEPHROTIC SYNDROME WITH UNSPECIFIED MORPHOLOGIC CHANGES SNOMED Code(s): 70792272 Comment: - 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 - Continue IV albumin infusion and furosemide IV.Will increase furosemide to tid -Will keep on Prednisone dose d/w Dr Em 40 mg in am and 20 mg in pm -On MMF 500 mg po bid that the pt only started a few days ago as steroid sparing agent -If weight and edema plateaus, can consider a bumex drip with the albumin -Albumin infusion at 4g/hr after initial bolus -Strict weights daily -ANCA pos, unclear sig pr3 and mpo neg and fsgs likely primary with extensive foot process effacement.But will check for sec causes and serology w/u to complete w/u inc hep b,c,hiv,cmv,ebv,parvovirus,russell,repeat anca panel, cryoglobulin,anti gbm,spep,upep,srerum free light chains -renal fx improving -recheck protein (2) Steroid myopathy Current Visit: Yes Status: Acute Code(s): G72.0 - DRUG-INDUCED MYOPATHY; T38.0X5A - ADVERSE EFFECT OF GLUCOCORT/SYNTH ANALOG, INIT SNOMED Code(s): 62091754 Comment: Seems less likely.Pt c/o weakness but not really having any proximal muscle weakness so far.CK normal.Myoglobin mildly elevated unclear sig. Will also check Aldolase.Can consider EMG for more conclusive diagnosis if ongoing (3) UTI (urinary tract infection) Current Visit: Yes Status: Acute Comment: E. faecalis 06/26/18, reich-sens. Continue IV ampicillin for 5 days.Started at time of admission and stop (4) Benign prostate hyperplasia Current Visit: No Status: Acute Code(s): N40.0 - BENIGN PROSTATIC HYPERPLASIA WITHOUT LOWER URINRY TRACT SYMP SNOMED Code(s): 596996182 Comment: - cont home tamsulosin (5) Constipation Current Visit: No Status: Acute Code(s): K59.00 - CONSTIPATION, UNSPECIFIED SNOMED Code(s): 08400259 Comment: -Continue Colace/Senna (6) Diabetes Current Visit: No Status: Acute Code(s): E11.9 - TYPE 2 DIABETES MELLITUS WITHOUT COMPLICATIONS SNOMED Code(s): 11136368 Comment: - HgbA1c (05/16/18) =7.6. - Recheck hbA1c -Will reduce NPH to 8 units in am and pm as pt had 2 episodes of hypoglycemia yday Continue iss (7) HTN (hypertension) Current Visit: No Status: Acute Code(s): I10 - ESSENTIAL (PRIMARY) HYPERTENSION SNOMED Code(s): 11281495 Comment: - continue Valsartan.
[2018-07-04] MEDS: Valsartan TAB* 160 MG PO SCH (20:41)
[2018-07-04] MEDS: clonazePAM TAB(*) 0.5 MG PO SCH (20:41)
[2018-07-04] MEDS: Ampicillin ADVAN(*) 1 GM in NS 0.9% 50 ML* 50 ML IVPB SCH (23:06)
[2018-07-05 01:39] LABS: Urine Potassium Concentration 42.9 mmol/L
[2018-07-05] MEDS: Albumin Human 25%* 25 GM/100 ML BTL IV SCH ×5 (02:22→20:29)
[2018-07-05] MEDS ORDERED: Haloperidol INJ IV/IM* 5 MG/ML AMP IM ONE (05:22)
[2018-07-05] MEDS ORDERED: Haloperidol INJ IV/IM* 5 MG/ML AMP ONE (05:23)
[2018-07-05] MEDS: Insulin LISPRO* 1 UNITS UNIT SUBCUT SCH ×3 (08:03→16:49)
[2018-07-05] MEDS: Insulin NPH(*) 1 UNITS UNIT SUBCUT SCH ×2 (09:15→18:10)
[2018-07-05] MEDS: Furosemide IV* 10 MG/ML 10 ML VIAL (100 MG) IV SCH ×4 (09:16→21:29)
[2018-07-05] MEDS: Mycophenolate Mofetil TAB(*) 500 MG PO SCH ×2 (09:16→21:06)
[2018-07-05] MEDS: Atorvastatin* 40 MG TAB PO SCH (09:21)
[2018-07-05] MEDS: predniSONE TAB* 20 MG PO SCH ×2 (09:21)
[2018-07-05] MEDS: Tamsulosin CAP* 0.4 MG PO SCH (09:21)
[2018-07-05] MEDS: Apixaban* 2.5 MG TAB PO SCH (09:21)
[2018-07-05] MEDS: clonazePAM TAB(*) 0.5 MG PO SCH ×2 (09:21→21:05)
[2018-07-05 11:43] LABS: Hepatitis B Surface Antigen Nonreactive (Nonreactive)
[2018-07-05 12:16] LABS: Hepatitis C Antibody Nonreactive (Nonreactive)
--- NOTE | 2018-07-05 14:58 | PN ---
Subjective Date of Service: 07/05/18 Interval History: HOSPITALIST PROGRESS NOTE Patient seen and examined at bedside. Care reviewed and d/w Jo Sandoval RN. He offers multiple complaints, states he doesn't feel well and "needs dyalisis" . When asked to elaborate, cannot give details "I just don't feel well". As per RN, patient is weaker, requiring to assist to walk to bathroom. Family History: Unchanged from Admission Social History: Unchanged from Admission Past Medical History: Unchanged from Admission Objective Active Medications: Apixaban (Eliquis*) 2.5 mg PO DAILY [facility] Last Admin: 07/05/18 09:21 Dose: 2.5 mg Atorvastatin Calcium (Lipitor*) 40 mg PO DAILY [facility] Last Admin: 07/05/18 09:21 Dose: 40 mg Clonazepam (Klonopin Tab(*)) 0.5 mg PO BID [facility] Last Admin: 07/05/18 09:21 Dose: 0.5 mg Dextrose (D50w Syringe 50 Ml*) 12.5 gm IV PUSH .FOR FS < 60 - SS PRN PRN Reason: FS < 60 Furosemide (Lasix Iv*) 80 mg IV TID [facility] Last Admin: 07/05/18 09:16 Dose: 80 mg Ampicillin Sodium 1 gm/ Sodium (Chloride) 50 mls @ 200 mls/hr IVPB Q24H [facility] Last Admin: 07/04/18 23:06 Dose: 200 mls/hr Albumin Human (Albumin Human 25%*) 25 gm in 100 mls @ 16 mls/hr IV 0530,1130, 1730,2330 [facility] Last Admin: 07/05/18 09:15 Dose: 16 mls/hr Insulin Human Lispro (Humalog*) 0 units SUBCUT [facility]; Protocol Last Admin: 07/05/18 12:18 Dose: Not Given Insulin Human NPH (Insulin Nph(*)) 8 units SUBCUT 0700,1500 [facility] Last Admin: 07/05/18 09:15 Dose: 8 units Mycophenolate Mofetil (Cellcept Tab(*)) 500 mg PO BID [facility] Last Admin: 07/05/18 09:16 Dose: 500 mg Oxycodone HCl (Roxycodone Tab*) 2.5 mg PO Q3H PRN PRN Reason: PAIN Last Admin: 07/02/18 10:40 Dose: 2.5 mg Prednisone (Deltasone Tab*) 40 mg PO QAM [facility] Last Admin: 07/05/18 09:21 Dose: 40 mg Prednisone (Deltasone Tab*) 20 mg PO DAILY [facility] Last Admin: 07/05/18 09:21 Dose: 20 mg Tamsulosin HCl (Flomax Cap*) 0.4 mg PO DAILY [facility] Last Admin: 07/05/18 09:21 Dose: 0.4 mg Valsartan (Diovan Tab*) 160 mg PO BEDTIME [facility]; Protocol Last Admin: 07/04/18 20:41 Dose: 160 mg Vital Signs - 8 hr 07/05/18 07/05/18 07/05/18 07:14 08:00 09:21 Temperature 97.6 F Pulse Rate 100 Respiratory 20 18 22 Rate Blood Pressure 132/72 (mmHg) O2 Sat by Pulse 95 Oximetry 07/05/18 07/05/18 07/05/18 09:35 10:55 11:38 Temperature 98.4 F 97.4 F Pulse Rate 106 97 89 Respiratory 20 20 Rate Blood Pressure 104/59 114/67 111/57 (mmHg) O2 Sat by Pulse 93 97 95 Oximetry 07/05/18 12:18 Temperature Pulse Rate Respiratory 20 Rate Blood Pressure (mmHg) O2 Sat by Pulse Oximetry Oxygen Devices in Use Now: None Appearance: Elderly gentleman lying in bed in NAD. Eyes: No Scleral Icterus Ears/Nose/Mouth/Throat: Mucous Membranes Moist Neck: Trachea Midline Respiratory: Symmetrical Chest Expansion and Respiratory Effort, Clear to Auscultation Cardiovascular: RRR - Normal S1 and S2 Extremities: - - Anasarca Skin: - - Facial abrasion Neurological: Alert and Oriented x 3, NL Muscle Strength and Tone Result Diagrams: 07/04/18 05:56 07/04/18 05:56 Assess/Plan/Problems-Billing Assessment: Mr Harden is a 72yo M with 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 - Continue Prednisone 40 mg in am and 20 mg in pm. - On Mycophenolate 500 mg po bid. - Strict weights daily. - ANCA pos, unclear sig pr3 and mpo neg and fsgs likely primary with extensive foot process effacement. Dr Christopher ordered extensive w/u for secondary causes including hep b,c,hiv,cmv,ebv,parvovirus,russell,repeat anca panel,cryoglobulin, anti gbm,spep,upep,srerum free light chains. (2) Weakness Comment: - Possible steroid myopathy. - CPK is normal, aldolase pending. - Neurology consult requested. (3) UTI (urinary tract infection) Comment: - Urine cx grew E. faecalis 06/26/18, reich-sens. - Continue IV ampicillin #5/. (4) Benign prostate hyperplasia Comment: - Continue Tamsulosin. (5) Diabetes Comment: - Type 2 DM. - HgbA1c (05/16/18) =7.6. - NPH reduced to 8 units BID as patient had episodes of hypoglycemia. - Continue Lispro SS. (6) HTN (hypertension) Comment: - Controlled. - Continue Valsartan. (7) Renal vein thrombosis Comment: - Possible renal vein thrombosis. - Continue Eliquis. (8) DVT prophylaxis Comment: - Eliquis. (9) DNR (do not resuscitate) Status and Disposition: Inpatient.
[2018-07-05 15:28] LABS: Hematocrit 24 % (36-46); Hemoglobin 8.3 g/dL (14.0-18.0); Mean Corpuscular HGB Conc 35 g/dL (31-36); Mean Corpuscular Hemoglobin 28 pg (27-31); Mean Corpuscular Volume 81 fL (80-94); Red Blood Count 2.93 10^6 /uL (4.18-5.48); Red Cell Distribution Width 20 % (10.5-15)
[2018-07-05 16:08] LABS: ABS Basophils 0.1 10^3/ul (0-0.2); ABS Eosinophils 0 10^3/ul (0-0.6); ABS Lymphocytes 0 10^3/ul (1.0-4.8); ABS Monocytes 0.6 10^3/ul (0-0.8); ABS Neutrophils 7.2 10^3/ul (1.5-7.7); ABS Nucleated RBC 0 10^3/ul; Eosinophil % 0.2 %; Lymphocyte % 0.5 %; Mean Platelet Volume 9.2 fL (7.4-10.4); Nucleated Red Blood Cells % 0; Platelet Count 88 10^3/uL (150-450)
[2018-07-05 16:14] LABS: BUN/Creatinine Ratio 30.3 (8-20); Calcium 7.9 mg/dL (8.6-10.3); EGFR African American 25.9 (>60); EGFR Non-African American 21.4 (>60); Potassium 3.6 mmol/L (3.5-5.0)
[2018-07-05 16:15] LABS: Albumin 2.4 g/dL (3.2-5.2); BUN/Creatinine Ratio 30.9 (8-20); Calcium 7.9 mg/dL (8.6-10.3); EGFR African American 26.1 (>60); EGFR Non-African American 21.6 (>60); Potassium 3.6 mmol/L (3.5-5.0)
--- NOTE | 2018-07-05 21:21 | PN ---
PROGRESS NOTE: DATE OF SERVICE: 07/05/18 HISTORY: Mr. Harden is a 72-year-old gentleman, well known to me from outpatient management and consultation, a history of nephrotic syndrome secondary to focal and segmental glomerulosclerosis and has been started on high -dose immunosuppression with corticosteroids and mycophenolate. He has complained of weakness, interestingly enough, but I am told by the physical therapist that on Thursday, he was walking all over the nurse's station and that the physical therapist had to ask him to slow down his amount of activity. Today, he feels quite weak and is having a difficult time even sitting up in bed. There has been attempt to diurese him using albumin and furosemide on his last admission. That process was unsuccessful until we got him to a 5 g per hour albumin infusion. On this occasion, his diuresis has been less than satisfying and in fact his weight is up 3.5 kg. PHYSICAL EXAMINATION: Her chest is clear. The heart revealed a regular rhythm without murmurs. The abdomen is soft and nontender. He has 2+ edema. His blood pressure was 111/57 with a pulse of 89, respirations are 20. LABORATORY DATA: White count of 8000, hemoglobin of 8.3, hematocrit of 24. Sodium 143, potassium 3.9, total CO2 15, chloride 115, BUN 87, creatinine of 2.66. IMPRESSION: 1. Nephrotic syndrome. 2. Focal and segmental glomerulosclerosis. PLAN: While his P-ANCA is positive, his proteinase 3 and myeloperoxidase are negative. I think at the present time we should push up his albumin infusion since it was necessary to have a more aggressive infusion on his last admission to obtain a diuresis. It is certainly possible that his weakness could be secondary to steroid myopathy and I do not think it would be a bad idea to get a neurologic consultation. I would buffer his metabolic acidosis using sodium citrate and citric acid solution 30 cc 3 times a day. [id number]/[facility] #: [id number] [facility]
[2018-07-05] MEDS: Valsartan TAB* 160 MG PO SCH (21:26)
[2018-07-06] MEDS: Ampicillin ADVAN(*) 1 GM in NS 0.9% 50 ML* 50 ML IVPB SCH ×2 (01:57→22:31)
[2018-07-06] MEDS: Albumin Human 25%* 25 GM/100 ML BTL IV SCH ×6 (03:13→20:33)
[2018-07-06] MEDS: oxyCODONE TAB* 5 MG TAB PO PRN (06:23)
[2018-07-06 07:24] LABS: Albumin 2.7 g/dL (3.2-5.2)
[2018-07-06] MEDS: Insulin LISPRO* 1 UNITS UNIT SUBCUT SCH ×4 (07:56→23:42)
[2018-07-06] MEDS ORDERED: Sodium Phosphate ADULT ENEMA* 118 ml bottle PR PRN (09:14)
--- NOTE | 2018-07-06 09:19 | PN ---
Subjective Date of Service: 07/06/18 Interval History: HOSPITALIST PROGRESS NOTE Patient seen and examined at bedside. Care reviewed and d/w Sweta Kurtz RN. He's tachypneic, using accessory muscles. Feels weaker than yesterday and thinks his swelling is not improving. Family History: Unchanged from Admission Social History: Unchanged from Admission Past Medical History: Unchanged from Admission Objective Active Medications: Apixaban (Eliquis*) 2.5 mg PO DAILY [facility] Last Admin: 07/05/18 09:21 Dose: 2.5 mg Atorvastatin Calcium (Lipitor*) 40 mg PO DAILY [facility] Last Admin: 07/05/18 09:21 Dose: 40 mg Citric Acid/Sodium Citrate (Bicitra*) 30 ml PO TID [facility] Clonazepam (Klonopin Tab(*)) 0.5 mg PO BID [facility] Last Admin: 07/05/18 21:05 Dose: 0.5 mg Dextrose (D50w Syringe 50 Ml*) 12.5 gm IV PUSH .FOR FS < 60 - SS PRN PRN Reason: FS < 60 Furosemide (Lasix Iv*) 80 mg IV TID [facility] Last Admin: 07/05/18 21:29 Dose: 80 mg Ampicillin Sodium 1 gm/ Sodium (Chloride) 50 mls @ 200 mls/hr IVPB Q24H [facility] Last Admin: 07/06/18 01:57 Dose: 200 mls/hr Albumin Human (Albumin Human 25%*) 25 gm in 100 mls @ 20 mls/hr IV Q6H [facility] Last Admin: 07/06/18 08:28 Dose: 20 mls/hr Insulin Human Lispro (Humalog*) 0 units SUBCUT [facility]; Protocol Last Admin: 07/06/18 07:56 Dose: Not Given Insulin Human NPH (Insulin Nph(*)) 8 units SUBCUT 0700,1500 [facility] Last Admin: 07/05/18 18:10 Dose: Not Given Mycophenolate Mofetil (Cellcept Tab(*)) 500 mg PO BID [facility] Last Admin: 07/05/18 21:06 Dose: 500 mg Oxycodone HCl (Roxycodone Tab*) 2.5 mg PO Q3H PRN PRN Reason: PAIN Last Admin: 07/06/18 06:23 Dose: 2.5 mg Prednisone (Deltasone Tab*) 40 mg PO QAM [facility] Last Admin: 07/05/18 09:21 Dose: 40 mg Prednisone (Deltasone Tab*) 20 mg PO DAILY [facility] Last Admin: 07/05/18 09:21 Dose: 20 mg Sodium Biphosphate/Sodium Phosphate (Fleet Enema*) 1 bottle [place] DAILY PRN PRN Reason: CONSTIPATION Tamsulosin HCl (Flomax Cap*) 0.4 mg PO DAILY [facility] Last Admin: 07/05/18 09:21 Dose: 0.4 mg Valsartan (Diovan Tab*) 160 mg PO BEDTIME [facility]; Protocol Last Admin: 07/05/18 21:26 Dose: Not Given Vital Signs - 8 hr 07/06/18 07/06/18 07/06/18 01:33 03:27 04:06 Temperature 97.8 F 98.1 F 98.1 F Pulse Rate 104 111 111 Respiratory 30 36 36 Rate Blood Pressure 115/70 111/62 111/62 (mmHg) O2 Sat by Pulse 92 91 91 Oximetry 07/06/18 07/06/18 07/06/18 06:23 07:16 07:53 Temperature 98.4 F 98.3 F Pulse Rate 106 112 Respiratory 24 18 30 Rate Blood Pressure 113/67 132/74 (mmHg) O2 Sat by Pulse 90 91 Oximetry 07/06/18 07/06/18 07/06/18 08:22 08:24 08:28 Temperature 98.5 F 98.5 F Pulse Rate 107 109 Respiratory 30 28 30 Rate Blood Pressure 105/58 105/58 (mmHg) O2 Sat by Pulse 100 97 Oximetry 07/06/18 08:58 Temperature 97.7 F Pulse Rate 108 Respiratory 30 Rate Blood Pressure 106/62 (mmHg) O2 Sat by Pulse 94 Oximetry Oxygen Devices in Use Now: Nasal Cannula - 3 liters Appearance: Elderly gentleman lying in bed in mild to moderate respiratory distress, accessory muscle use, no nasal flare Eyes: No Scleral Icterus Ears/Nose/Mouth/Throat: Mucous Membranes Moist Neck: Trachea Midline Respiratory: Symmetrical Chest Expansion and Respiratory Effort, Clear to Auscultation Cardiovascular: RRR - Normal S1 and S2 Abdominal: NL Sounds; No Tenderness; No Distention Extremities: - - Anasarca Neurological: Alert and Oriented x 3, - - Proximal weakness UE/LE, possible Result Diagrams: 07/05/18 15:09 07/05/18 15:09 Microbiology and Other Data: Microbiology 07/01/18 19:55 Aerobic Blood Culture - Preliminary Blood Venous No Growth Day 1 Anaerobic Blood Culture - Preliminary No Growth Day 1 07/01/18 19:04 Aerobic Blood Culture - Preliminary Blood Venous No Growth Day 1 Anaerobic Blood Culture - Preliminary No Growth Day 1 Assess/Plan/Problems-Billing Assessment: Mr Harden is a 72yo M with 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 - Patient Problems (1) Respiratory failure Comment: - With increased work of breathing and accessory muscle use. - Transfer to ICU for BiPAP. - Critical care consultation requested with Dr Gillis. (2) Weakness Comment: - Possible steroid myopathy, progressing. - CPK is normal, aldolase pending. - Neurology consult appreciated - plan for EMG, recommended tapering steroids. - There was concern for possible facial weakness, suggesting myasthenic symptoms (could be paraneoplastic manifestation) - check acethylcholine receptor antibody binding. - D/w Dr Em - will d/c prednisone, start Solumedrol 20mg/day, d/c Mycophenolate, and obtain Acthar gel to witch from steroids when available. 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 - Strict weights daily. - ANCA pos, unclear significance as PR3 and MPO are negative and his FSGS is likely primary with extensive foot process effacement. - Dr Christopher ordered extensive w/u for secondary causes including EBV, parvovirus, MALCOLM, repeat ANCA panel, cryoglobulin, anti gbm, SPEP, UPEP, serum free light chains. - Hepatitis B, C, HIV are negative. (4) UTI (urinary tract infection) Comment: - Urine cx grew E. faecalis 06/26/18, reich-sens. - Continue IV ampicillin #6/7. (5) Benign prostate hyperplasia Comment: - Continue Tamsulosin. (6) Diabetes Comment: - Type 2 DM. - HgbA1c (05/16/18) =7.6. - NPO for now - will d/c NPH and continue Lispro SS. (7) HTN (hypertension) Comment: - Controlled. - Continue Valsartan with holding parameters, as ARB will be beneficial with his nephrotic syndrome. (8) Renal vein thrombosis Comment: - Possible renal vein thrombosis. - Continue Eliquis. (9) DVT prophylaxis Comment: - Eliquis. (10) DNR (do not resuscitate) Status and Disposition: Inpatient. called and updated about change in condition. 45 minutes Critical Care time.
[2018-07-06] MEDS: Tamsulosin CAP* 0.4 MG PO SCH ×2 (09:27→09:39)
[2018-07-06] MEDS: Mycophenolate Mofetil TAB(*) 500 MG PO SCH ×2 (09:27→09:39)
[2018-07-06] MEDS: Apixaban* 2.5 MG TAB PO SCH (09:27)
[2018-07-06] MEDS: predniSONE TAB* 20 MG PO SCH ×3 (09:27→09:39)
[2018-07-06] MEDS: clonazePAM TAB(*) 0.5 MG PO SCH ×3 (09:28→20:31)
[2018-07-06] MEDS: Sodium Citrate/Citric Acid* 15 ML UDC PO SCH ×5 (09:28→20:29)
[2018-07-06] MEDS: Atorvastatin* 40 MG TAB PO SCH ×2 (09:28→09:39)
[2018-07-06] MEDS: Furosemide IV* 10 MG/ML 10 ML VIAL (100 MG) IV SCH ×3 (09:31→20:31)
[2018-07-06] MEDS: Insulin NPH(*) 1 UNITS UNIT SUBCUT SCH (09:39)
[2018-07-06] MEDS ORDERED: Insulin LISPRO* 1 UNITS UNIT SUBCUT SCH (10:00)
[2018-07-06 10:20] LABS: Urine Creatinine Concentration 81.85 mg/dL
--- NOTE | 2018-07-06 11:01 | PN ---
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 Presented to ED on 07/01 with malaise, generalized weakness, right arm pain and shortness of breath. Per patient's this started after steriods were recently increased. On the day of presentation he tripped and fell on a curb, sustaining abrasions to nose. CTs of face and cervical spine negative for fracture. US of right arm negative for DVT. Admitted to hospitalist service with UTI and arm swelling. 07/02: Albumin infusion and furosemide for diuresis. Prednisone dose decreased to 40 QD due to weakness 07/03: continues to feel weak. episodes of hypoglycemia. Furosemide increased to TID. continued on MMF 07/04: Prednisone adjusted to 40mg QAM and 20mg QPM. Albumin infusion @ 4 g/hr 07/05: weaker today, requiring assistance ambulating to bathroom. Albumin increased to 5g/hr. Neurology consult placed. 07/06: Question of bulbar muscle weakness. Now with increased work of breathing. Started on BiPAP and transferred to ICU. Urine culture (+) for enterococcus, on day 08/10 ampicillin Vital Signs: Temp Pulse Resp BP SpO2 FiO2 98.5 F 104 24 102/68 96 40 07/06/18 10:15 07/06/18 10:15 07/06/18 10:15 07/06/18 10:15 07/06/18 10:15 07/06 09:39 Physical Exam: Gen: resting comfortably HEENT: BIPAP mask in place Lungs: CTAB Cardiac: RRR Abdomen: soft, NTND Extremities: warm, dry, significant pitting edema Neuro: alert, conversant Fluid Balance (Past 24 Hours): I= O= Net Intake & Output 07/04/18 07/05/18 07/06/18 07/07/18 06:59 06:59 06:59 06:59 Intake Total 2361 834 1569 Output Total 1170 3100 1050 Balance 1191 -2266 519 Weight 234 lb 3.2 oz 245 lb 11.2 oz 238 lb 14.4 oz Intake: IV Fluids 60 NS (0.9%) 60 IVPB 529 NS (0.9%) 429 albumin 100 Medicated IV 581 274 GEN - Albumin 581 274 Oral 1780 560 980 Output: Urine 1170 Rose 1900 1050 Residual 1200 Rose 16 Fr 1200 Other: Estimated Void Medium Medium Date of Last Bowel [id number] Movement # Bowel Movements 0 2 Estimated Stool Amount Large # Voids 4 0 Labs: Laboratory Results - last 24 hr 07/03/18 07/05/18 07/05/18 19:13 11:59 15:09 WBC RBC Hgb Hct MCV MCH MCHC RDW Plt Count MPV Neut % (Auto) Lymph % (Auto) Metcalfe % (Auto) Eos % (Auto) Baso % (Auto) Absolute Neuts (auto) Absolute Lymphs (auto) Absolute Monos (auto) Absolute Eos (auto) Absolute Basos (auto) Absolute Nucleated RBC Nucleated RBC % Patient Temperature ABG pH ABG pH (Temp Correct) ABG pCO2 ABG pCO2 (Temp Corrct ABG pO2 ABG pO2 (Temp Correct ABG HCO3 ABG O2 Saturation ABG Base Excess Respiration Rate O2 Delivery Device Ventilator Type Vent Mode FiO2 Inspiratory Time PEEP Pressure Support Pressure Control EPAP IPAP BiPAP Sodium 146 H Potassium 3.6 Chloride 115 H Carbon Dioxide 16 L Anion Gap 15 H BUN 89 H Creatinine 2.88 H Est GFR ( Amer) 26.1 Est GFR (Non-Af Amer) 21.6 BUN/Creatinine Ratio 30.9 H Glucose 103 H POC Glucose (mg/dL) 107 H Calcium 7.9 L Total Creatine Kinase Albumin 2.4 L Vitamin B12 Urine Collection Time Urine Total Volume Ur Creatinine Concen Hep Bs Antigen Nonreactive Hepatitis C Antibody Nonreactive Hepatitis C Ab Index < 0.0 07/05/18 07/05/18 07/05/18 15:09 15:09 16:40 WBC 8.0 RBC 2.93 L Hgb 8.3 L Hct 24 L MCV 81 MCH 28 MCHC 35 RDW 20 H Plt Count 88 L D MPV 9.2 Neut % (Auto) 90.8 Lymph % (Auto) 0.5 Metcalfe % (Auto) 7.8 Eos % (Auto) 0.2 Baso % (Auto) 0.7 Absolute Neuts (auto) 7.2 Absolute Lymphs (auto) 0 L Absolute Monos (auto) 0.6 Absolute Eos (auto) 0 Absolute Basos (auto) 0.1 Absolute Nucleated RBC 0 Nucleated RBC % 0 Patient Temperature ABG pH ABG pH (Temp Correct) ABG pCO2 ABG pCO2 (Temp Corrct ABG pO2 ABG pO2 (Temp Correct ABG HCO3 ABG O2 Saturation ABG Base Excess Respiration Rate O2 Delivery Device Ventilator Type Vent Mode FiO2 Inspiratory Time PEEP Pressure Support Pressure Control EPAP IPAP BiPAP Sodium 146 H Potassium 3.6 Chloride 115 H Carbon Dioxide 15 L Anion Gap 16 H BUN 88 H Creatinine 2.90 H Est GFR ( Amer) 25.9 Est GFR (Non-Af Amer) 21.4 BUN/Creatinine Ratio 30.3 H Glucose 104 H POC Glucose (mg/dL) 123 H Calcium 7.9 L Total Creatine Kinase 49 Albumin Vitamin B12 Urine Collection Time Urine Total Volume Ur Creatinine Concen Hep Bs Antigen Hepatitis C Antibody Hepatitis C Ab Index 07/06/18 07/06/18 07/06/18 06:47 07:34 09:39 WBC RBC Hgb Hct MCV MCH MCHC RDW Plt Count MPV Neut % (Auto) Lymph % (Auto) Metcalfe % (Auto) Eos % (Auto) Baso % (Auto) Absolute Neuts (auto) Absolute Lymphs (auto) Absolute Monos (auto) Absolute Eos (auto) Absolute Basos (auto) Absolute Nucleated RBC Nucleated RBC % Patient Temperature Not Reportable ABG pH 7.42 ABG pH (Temp Correct) Not Reportable ABG pCO2 26 L ABG pCO2 (Temp Corrct Not Reportable ABG pO2 112 H ABG pO2 (Temp Correct Not Reportable ABG HCO3 20.3 ABG O2 Saturation 99.2 H ABG Base Excess -6.0 L Respiration Rate 16 O2 Delivery Device bipap Ventilator Type Not Reportable Vent Mode st FiO2 40 Inspiratory Time Not Reportable PEEP Not Reportable Pressure Support Not Reportable Pressure Control Not Reportable EPAP 8 IPAP 12 BiPAP Not Reportable Sodium Potassium Chloride Carbon Dioxide Anion Gap BUN Creatinine Est GFR ( Amer) Est GFR (Non-Af Amer) BUN/Creatinine Ratio Glucose POC Glucose (mg/dL) 111 H Calcium Total Creatine Kinase Albumin 2.7 L Vitamin B12 > 1450 H Urine Collection Time Urine Total Volume Ur Creatinine Concen Hep Bs Antigen Hepatitis C Antibody Hepatitis C Ab Index 07/06/18 09:50 WBC RBC Hgb Hct MCV MCH MCHC RDW Plt Count MPV Neut % (Auto) Lymph % (Auto) Metcalfe % (Auto) Eos % (Auto) Baso % (Auto) Absolute Neuts (auto) Absolute Lymphs (auto) Absolute Monos (auto) Absolute Eos (auto) Absolute Basos (auto) Absolute Nucleated RBC Nucleated RBC % Patient Temperature ABG pH ABG pH (Temp Correct) ABG pCO2 ABG pCO2 (Temp Corrct ABG pO2 ABG pO2 (Temp Correct ABG HCO3 ABG O2 Saturation ABG Base Excess Respiration Rate O2 Delivery Device Ventilator Type Vent Mode FiO2 Inspiratory Time PEEP Pressure Support Pressure Control EPAP IPAP BiPAP Sodium Potassium Chloride Carbon Dioxide Anion Gap BUN Creatinine Est GFR ( Amer) Est GFR (Non-Af Amer) BUN/Creatinine Ratio Glucose POC Glucose (mg/dL) Calcium Total Creatine Kinase Albumin Vitamin B12 Urine Collection Time 24 Urine Total Volume 450 Ur Creatinine Concen 81.85 Hep Bs Antigen Hepatitis C Antibody Hepatitis C Ab Index Studies: 07/04 CT abd - anasarca, cholelithasis. no visualized neoplasm. 07/01 CXR - small left basilar effusion 07/01 XR R forearm - No fracture 07/01 XR R elbow - no fracture or dislocation 07/01 XR R humerus - no fracture or dislocation 07/01 US duplex RUE - no DVT 06/26 CT maxillofacial - NAD 06/26 CT cspine - NAD 06/26 CT brain - NAD. Age related changes. 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 On albumin gtt and IV lasix. Neuro consult for possible steriod myopathy pending. Plan: Cardiovascular: (1) Chronic HTN -- HR 89-112 -- SBP 82-132 -- Telemetry -- Valsartan, discontinue as SBPs soft -- Apixaban -- Atorvastatin Home meds: Atorvastatin, candesartan, Apixaban, Lasix Pulmonary: (1) Acute hypoxic respiratory failure -- RR 18-34 -- sats 90-100 -- started on BiPAP for increased work of breathing -- ABG: pH 7.42; pCO2 26; pO2 112; HCO3 20.3; BE -6. -- DNI Home meds: None Gastrointestinal: (1) Chronic constipation -- diet: NPO while on BiPAP -- bowel regimen: Fleets enema -- ulcer prophylaxis: protonix Home meds: Zofran Endocrine: (1) Diabetse mellitus -- monitor BGs -- Solumedrol -- SSI Home meds: Humulin N, prednisone Renal: (1) FSGN; (2) Nephrotic syndrome; (3) BPH; (4) Chronic hypokalemia; (5) UTI -- UOP: 40 ml/hr -- I/O:1569 ml in / 1050 ml out -- Cr 2.90 from 2.88 -- Lytes Na 146 from 146 K 3.6 Ca 7.9 -- Albumin @ 5 g/hr -- Lasix 80 mg TID -- Solumedrol and MMF -- Tamsulosin -- Nephrology following Home meds: Tamsulosin, potassium chloride, Lasix, MMF Infectious disease: (1) UTI -- Tmax 98.5 -- WBC 8.0 from 10.1 -- Micro 07/04 UA negative 07/01 UA negative -- ABX Ampicillin Home meds: None Neurologic: (1) 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; (2) Chronic anxiety -- PRN Oxycodone -- PRN Clonazepam -- Neurology consult in progress Home meds: Clonazepam, benadryl Hematological: (1) Anemia; (2) Thrombocytopenia -- Hgb 8.3 from 9.5 from 11.8 -- Plt 88 from 167 from 291 -- DVT prophylaxis: Apixaban Home meds: Apixaban Other: Home meds: Vit B12 Deep vein thrombosis prophylaxis: Apixaban Dietary: protonix Condition: critical Prognosis: poor Code status: DNR/DNI Disposition: continue ICU Care updated at bedside regarding interval events and plan of care Cumulative time spent in the care of this patient (excluding any procedure time) : at least 55 minutes. Patient care included clinical interview (with patient and/or family), bedside exam of the patient, review of labs, x-rays, and other ancillary data, coordination of (respiratory, nursing care, review of patient's records, discussion regarding patients management with involved consultants, primary physician, pharmacists, and other healthcare personnel (dietary, case management , physical/occupational therapy etc.) Critical Care Time: 55 miun
--- NOTE | 2018-07-06 14:08 | CONS ---
NEUROLOGY CONSULTATION NOTE: DATE OF CONSULT: 07/06/18 CONSULTING PROVIDER: Dr. Garvin. REASON FOR CONSULT: Evaluate for generalized weakness, suspect myopathy. CHIEF COMPLAINT: Swelling and weakness. HISTORY OF PRESENT ILLNESS: Mr. 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 The history was mostly obtained by Mrs. Harden, who was at bedside. Mr. Harden was short of breath this morning and I contacted Dr. Garvin to transfer him to the ICU for close monitoring and for the use of BiPAP. Apparently, the patient was recently diagnosed with nephrotic syndrome in March 2018. He was treated with high dose Solu-Medrol 500 mg pulses for 3 days and then continued on prednisone 60 mg daily. The patient was hospitalized 2 weeks ago and he was reported to be walking around in the hallways without any significant distress. Mrs. Harden stated that before the patient was hospitalized , he actually worked out on the recumbent bicycle sitting down for about 20 minutes. The patient was going up the stairs when he missed the step and fell, hitting his face. He had an abrasion to the nose and forehead. Since then, his physical examination deteriorated. The patient stated that he had some weakness of the extremities for over the last 1 week, but it has deteriorated the last 4-5 days. He was started on CellCept on and Mrs. Harden thinks that this is causing his problems. 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 She did show me today pictures of the patient with baseline left-sided ptosis. He denied any double vision. The ptosis does not fluctuate. He denied any swallowing difficulty. He did mention some shortness of breath and was transferred to the ICU and is tolerating the BiPAP. The patient's weakness is mostly in the proximal upper and lower extremities. The weakness did start in the lower extremities. There is no reported rash. He denied any neck or low back pain. LABORATORY DATA/IMAGING STUDIES: WBC of 8.0, hemoglobin 8.3, hematocrit 24, platelet count of 88. Sodium 146, potassium 3.6, chloride 115, carbon dioxide of 15, BUN of 88, creatinine 2.90, vitamin B12 greater than 1450, albumin 2.4. The patient had a brain CT of the head on 07/01/18 that showed no acute intracranial abnormality. There is age-related atrophy. He also had a CT of the C-spine completed on 07/01/17 that showed no acute fracture, but there was bilateral pleural effusions. There is no evidence of a large hematoma. 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 PAST SURGICAL HISTORY: Polypectomy. HOME MEDICATIONS: 1. Atorvastatin 40 mg p.o. daily. 2. Tamsulosin 0.4 mg p.o. daily. 3. Clonazepam 0.5 mg daily p.r.n. 4. Ondansetron 4 mg p.o. q.6 hours. 5. Cyanocobalamin 1000 mcg p.o. daily. 6. Diphenhydramine 25 mg capsule at bedtime. 7. Candesartan 32 mg p.o. at bedtime. 8. Insulin NPH. 9. Apixaban 2.5 mg p.o. daily. 10. Potassium chloride 20 mEq p.o. daily. 11. Prednisone 20 mg p.o. at bedtime. 12. Furosemide 80 mg p.o. twice daily. 13. Prednisone 40 mg in the morning and 20 mg at night. 14. Mycophenolate mofetil 500 mg p.o. daily. FAMILY HISTORY: No family history of stroke or seizures. SOCIAL HISTORY: The patient does not smoke and does not consume alcohol. REVIEW OF SYSTEMS: Review of systems was difficult to obtain, but the 14-point review of systems was reviewed by the patient and with the help of his . Most important findings is the patient currently denied any neck pain. He denied any double vision or swallowing difficulty. PHYSICAL EXAM: Vitals: Temperature of 98.5, pulse rate of 104, respiratory rate of 24, oxygen saturation 96%, blood pressure of 102/68. General: Critically ill- appearing frail man in moderate respiratory distress. Anasarca. Head: Normocephalic without obvious abnormality. Eyes: Conjunctive/ corneas are clear. Neck is supple and symmetric with no carotid bruit. Lungs: Diminished breath sounds bilaterally. Cardiovascular: Sinus tachycardia with no murmurs. Extremities: Severe pitting edema and anasarca. Skin: No apparent skin lesions. Psych: A flat affect and depressed mood. The patient reported that he should be let go and to stop trying to save him. He also mentioned that he wants to go on dialysis. Neurological Examination: Mental status: Awake and alert and oriented to person, place, time, and general circumstances. He did have moderate slurred speech, but was able to comprehend and repeat appropriately. However, the patient was in respiratory distress and was unable to fully evaluate his cognitive function. Cranial Nerves: Normal confrontation testing bilaterally. Pupils are midrange and reactive to light. There is no evidence of Cruz syndrome. He has moderate ptosis of the left eye , but no fatigable ptosis. Kernig sign negative bilaterally. Sensation is intact in the forehead, cheeks, and jaw region bilaterally. There is no facial droop, but he did have difficulty puffing his cheeks. He is able to hear throughout the history of process. Symmetrical palatal elevation. Normal strength, weakness to shoulder shrug 1/5. Tongue: Mild tongue weakness, but no atrophy or fasciculation. Motor Examination: He has got reduced tone throughout. He has proximal more than distal upper and lower extremity weakness. Upper proximal extremities graded as 1/5, lower proximal extremities graded as 0/5. He has about 4/5 strength in the mid and distal upper extremity. He had 3/5 to ankle flexion and dorsiflexion, but was unable to bend or extend the knee at all. Reflexes: Right/left brachioradialis 1/1, biceps 1/ 1, triceps 1/1, patella 2/2, ankle 0/0, plantar flexor/flexor. Sensation is intact to light touch throughout. He has absent vibration at the toes bilaterally. Coordination and Gait: Unable to assess due to severe weakness. ASSESSMENT: Mr. Jl Harden is a 72-year-old man who has been on a fairly high dose steroid therapy and recently started on CellCept, who presented after a fall. The patient rapidly progressed to quadriparesis with more proximal weakness involving the upper and lower extremities bilaterally. The differential diagnosis here is most likely steroid myopathy given the normal CK level and painless muscle weakness. He has no evidence of rash and symptoms started after the steroid use; hence, it is unlikely that he has an autoimmune or inflammatory myopathy. The left eye ptosis is chronic and is unlikely to be related to a neuromuscular junction disorder such as myasthenic syndrome or Lambert- Eaton syndrome. It is atypical to have bulbar and respiratory weakness in steroid myopathy, but there are reported cases. In addition, the patient could have a component of critical illness myopathy, which also can manifest with respiratory insufficiency, especially in the setting of underlying respiratory problem such as the bilateral pleural effusions. There is no evidence of cervical spine disease. The patient does not have any neck pain or evidence of upper motor neuron findings to suspect cervical epidural hematoma (on Eliquis) or spondylotic disease in the cervical spine. He has no numbness or paresthesias to suspect an acute inflammatory demyelinating neuropathy. 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 RECOMMENDATIONS: Certainly, the patient is requiring the steroids to preserve his kidney function; however, in the absence of other causes of myopathy, the steroids will have to be lowered to evaluate for any improvement in his strength within the next 3 to 4 weeks. Usually doses of less than 10 mg a day of prednisone, or its equivalent, may help with improvement of his muscle function. In addition, I will perform an EMG nerve condition study, which the nerve condition study will be extremely limited given the amount of extremity swelling, but to look for irritable and non-irritable myopathy. Typically, steroid-induced myopathy will have a non- irritable type of myopathic pattern on EMG. I also discussed this case with Dr. Em, who stated that he will discuss with pharmacy to see if the patient can be started on Acthar gel. Hopefully if this can be initiated, the patient's CellCept can also be discontinued. I recommend frequent neuro checks every hour for close monitoring. I have sent out the acetylcholine receptor antibody binding, blocking, and modulating including voltage gated calcium channel antibody to look for rare neuromuscular junction disorder, which I do not suspect in this case. We discussed the plan of care and his code status. According to Mrs. Harden, if the patient needs to be intubated, we should proceed with intubation to give him a trial or at least a time to get off the steroids and hopefully improve. Dialysis is also a consideration. TIME SPENT: Critical time spent was 60 minutes discussing the patient's history , examining the patient, education and counseling, and discussing the treatment plan with Dr. Em, Dr. Garvin and the patient as well as his at bedside. [id number]/[facility] #: [id number] [facility]
[2018-07-06] MEDS ORDERED: hydrALAZINE IV* 20 MG/ML VIAL IV SLOW PU PRN (15:43)
[2018-07-06] MEDS: LORazepam INJ* 2 MG/ML 1 ML VIAL IV PUSH PRN (20:34)
[2018-07-06] MEDS ORDERED: Valsartan TAB* 160 MG PO SCH (21:00)
[2018-07-06 21:55] LABS: Kappa Free Light Chain 3.97 mg/dL
[2018-07-06 23:25] LABS: Urine Kappa Total Light Chain 10.7 mg/dL (<0.9000); Urine Kappa/Lambda Light Chain 1.75
[2018-07-07] MEDS: oxyCODONE TAB* 5 MG TAB PO PRN (00:43)
[2018-07-07] MEDS: LORazepam INJ* 2 MG/ML 1 ML VIAL IV PUSH PRN ×2 (00:43→08:05)
[2018-07-07] MEDS: Albumin Human 25%* 25 GM/100 ML BTL IV SCH ×4 (02:31→21:52)
--- NOTE | 2018-07-07 03:12 | PN ---
PROGRESS NOTE: DATE OF SERVICE: 07/06/18 HISTORY: I had a prolonged discussion with Mrs. Harden today and with Dr. Park and Dr. Gillis. Mr. Harden has had a significant decrease in his strength over the past few days. There was a question of whether or not this could be steroid myopathy. Dr. Park was leaning in that direction. Mr. Harden is breathing reasonably well on his own, but he appears to me to be more work of breathing than I had noticed in the past. He is also quite tired and really does not participate in discussion at all at this point. I discussed with Mrs. Harden the fact that if he has steroid myopathy that would significantly compromise our ability to treat his nephrotic syndrome. She wonders whether or not mycophenolate could be a culprit here. That would typically not be a culprit with regard to his weakness; however, the steroid certainly could be. I discussed this case with Dr. Garvin and we elected to go ahead and decrease his steroid administration at this point and discontinue mycophenolate. I discussed the possibility of getting Acthar gel to treat him as the alternative therapy for focal and segmental glomerulosclerosis with nephrotic syndrome. I discussed this with Tyshawn Murdock in the pharmacy. In addition, I pointed out to Mrs. Harden that in the trials for treatment of focal and segmental glomerulo-sclerosis with nephrotic syndrome that his level of proteinuria suggested an unlikely probability of being successful with regard to ameliorating his nephrotic syndrome. We will continue with his albumin assisted diuresis at this point. [id number]/[facility] #: [id number] JACQUELYN
[2018-07-07] MEDS: Insulin LISPRO* 1 UNITS UNIT SUBCUT SCH ×5 (04:07→20:24)
[2018-07-07 05:07] LABS: ABS Basophils 0 10^3/ul (0-0.2); ABS Eosinophils 0 10^3/ul (0-0.6); ABS Lymphocytes 0 10^3/ul (1.0-4.8); ABS Monocytes 0.1 10^3/ul (0-0.8); ABS Neutrophils 8.1 10^3/ul (1.5-7.7); ABS Nucleated RBC 0 10^3/ul; Eosinophil % 0.1 %; Hematocrit 20 % (36-46); Hemoglobin 6.9 g/dL (14.0-18.0); Lymphocyte % 0.4 %; Mean Corpuscular HGB Conc 34 g/dL (31-36); Mean Corpuscular Hemoglobin 28 pg (27-31); Mean Corpuscular Volume 82 fL (80-94); Mean Platelet Volume 10.1 fL (7.4-10.4); Nucleated Red Blood Cells % 0; Platelet Count 50 10^3/uL (150-450); Red Blood Count 2.48 10^6 /uL (4.18-5.48); Red Cell Distribution Width 20 % (10.5-15); White Blood Count 8.3 10^3/uL (3.5-10.8)
[2018-07-07 05:12] LABS: Activated Partial Thrombo Time 43.8 seconds (26.0-36.3); INR 1.46 (0.77-1.02)
[2018-07-07 05:21] LABS: BUN/Creatinine Ratio 28.7 (8-20); Calcium 7.9 mg/dL (8.6-10.3); EGFR African American 20.3 (>60); EGFR Non-African American 16.8 (>60); Potassium 4.1 mmol/L (3.5-5.0)
--- NOTE | 2018-07-07 06:32 | PN ---
Progress Note - Progress Note Date of Service: 07/07/18 Note: Paged for concern of worsening mental status. ABG ordered. Patient back on BiPAP.
[2018-07-07] MEDS ORDERED: Pantoprazole IV* 40 MG IV ONE (07:43)
[2018-07-07] MEDS: clonazePAM TAB(*) 0.5 MG PO SCH ×2 (07:51→20:24)
[2018-07-07] MEDS: Tamsulosin CAP* 0.4 MG PO SCH (07:51)
[2018-07-07] MEDS: Atorvastatin* 40 MG TAB PO SCH (07:51)
[2018-07-07] MEDS: Furosemide IV* 10 MG/ML 10 ML VIAL (100 MG) IV SCH ×2 (08:04→14:29)
[2018-07-07] MEDS: methylPREDNISolone SOD 40 MG* 1 ML VIAL IV SCH (08:05)
[2018-07-07 08:20] LABS: Albumin/Globulin Ratio 1.8 (1-3); Globulin 1.7 g/dL (2-4); Indirect Bilirubin 0.5 mg/dL (0.3-1.0); Total Bilirubin 0.8 mg/dL (0.2-1.0); Total Protein 4.7 g/dL (6.4-8.9)
--- NOTE | 2018-07-07 08:38 | PN ---
Subjective Date of Service: 07/07/18 Interval History: HOSPITALIST PROGRESS NOTE Patient seen and examined at bedside. Case reviewed and d/w Msaha Bahena RN. He's off BiPAP now, tachypneic. Received Ativan earlier for agitation and is now more lethargic, does not answer questions. Family History: Unchanged from Admission Social History: Unchanged from Admission Past Medical History: Unchanged from Admission Objective Active Medications: Atorvastatin Calcium (Lipitor*) 40 mg PO DAILY [facility] Last Admin: 07/07/18 07:51 Dose: Not Given Citric Acid/Sodium Citrate (Bicitra*) 30 ml PO TID [facility] Last Admin: 07/06/18 20:29 Dose: 30 ml Clonazepam (Klonopin Tab(*)) 0.5 mg PO BID [facility] Last Admin: 07/07/18 07:51 Dose: Not Given Dextrose (D50w Syringe 50 Ml*) 12.5 gm IV PUSH .FOR FS < 60 - SS PRN PRN Reason: FS < 60 Furosemide (Lasix Iv*) 80 mg IV TID [facility] Last Admin: 07/07/18 08:04 Dose: 80 mg Hydralazine HCl (Apresoline Iv*) 5 mg IV SLOW PU Q6H PRN PRN Reason: SYSTOLIC BP GREATER THAN: Ampicillin Sodium 1 gm/ Sodium (Chloride) 50 mls @ 200 mls/hr IVPB Q24H [facility] Stop: 07/07/18 23:59 Last Admin: 07/06/18 22:31 Dose: 200 mls/hr Albumin Human (Albumin Human 25%*) 25 gm in 100 mls @ 20 mls/hr IV Q6H [facility] Last Admin: 07/07/18 08:05 Dose: 20 mls/hr Pantoprazole Sodium (Protonix Iv Bag*) 80 mg in 250 mls @ 25 mls/hr IVPB Q10H [facility] Insulin Human Lispro (Humalog*) 0 units SUBCUT Q4H [facility]; Protocol Last Admin: 07/07/18 04:07 Dose: 2 units Lorazepam (Ativan Inj*) 1 mg IV PUSH Q4H PRN PRN Reason: ANXIETY Last Admin: 07/07/18 08:05 Dose: 1 mg Methylprednisolone Sodium Succinate (Solu-Medrol 40 Mg) 20 mg IV DAILY [facility] Last Admin: 07/07/18 08:05 Dose: 20 mg Oxycodone HCl (Roxycodone Tab*) 2.5 mg PO Q3H PRN PRN Reason: PAIN Last Admin: 07/07/18 00:43 Dose: 2.5 mg Sodium Biphosphate/Sodium Phosphate (Fleet Enema*) 1 bottle [place] DAILY PRN PRN Reason: CONSTIPATION Last Admin: 07/06/18 15:00 Dose: 1 bottle Tamsulosin HCl (Flomax Cap*) 0.4 mg PO DAILY [facility] Last Admin: 07/07/18 07:51 Dose: Not Given Vital Signs - 8 hr 07/07/18 07/07/18 07/07/18 00:43 01:00 02:00 Temperature Pulse Rate 97 91 Respiratory 22 31 24 Rate Blood Pressure 104/60 101/55 (mmHg) O2 Sat by Pulse 95 95 Oximetry 07/07/18 07/07/18 07/07/18 03:00 03:01 03:22 Temperature 97.8 F Pulse Rate 95 90 Respiratory 25 24 Rate Blood Pressure 93/54 (mmHg) O2 Sat by Pulse 94 95 Oximetry 07/07/18 07/07/18 07/07/18 04:00 04:15 05:00 Temperature Pulse Rate 95 100 98 Respiratory 25 31 31 Rate Blood Pressure 94/58 115/60 92/56 (mmHg) O2 Sat by Pulse 94 95 92 Oximetry 07/07/18 07/07/18 07/07/18 06:00 07:00 07:42 Temperature 97.1 F Pulse Rate 100 97 Respiratory 27 28 Rate Blood Pressure 99/59 116/68 (mmHg) O2 Sat by Pulse 94 94 Oximetry 07/07/18 08:05 Temperature Pulse Rate Respiratory 24 Rate Blood Pressure (mmHg) O2 Sat by Pulse Oximetry Oxygen Devices in Use Now: Nasal Cannula Appearance: Elderly gentleman lying in bed in in mild respiratory distress Eyes: No Scleral Icterus Ears/Nose/Mouth/Throat: Mucous Membranes Moist Neck: Trachea Midline Respiratory: Symmetrical Chest Expansion and Respiratory Effort, - - BS+ bilaterally diminished in bases Cardiovascular: RRR - Normal S1 and S2 Abdominal: NL Sounds; No Tenderness; No Distention, - - Rectal: no visible hemorrhoids, normal tone, liquid brown stool on the glove Extremities: - - Anasarca Neurological: - - Lethargic, opens eyes, doesn't answer questions or follows commands Result Diagrams: 07/07/18 08:24 07/07/18 04:31 Microbiology and Other Data: Microbiology 07/01/18 19:55 Aerobic Blood Culture - Preliminary Blood Venous No Growth Day 1 Anaerobic Blood Culture - Preliminary No Growth Day 1 07/01/18 19:04 Aerobic Blood Culture - Preliminary Blood Venous No Growth Day 1 Anaerobic Blood Culture - Preliminary No Growth Day 1 Assess/Plan/Problems-Billing Assessment: Mr Harden is a 72yo M with 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 - Patient Problems (1) Respiratory failure Comment: - With increased work of breathing and accessory muscle use. - Continue BiPAP as tolerated. - Critical care consult appreciated. - Lengthy conversation with patient's over the phone. She states patient was against prolonged intubation as he watched his mom , but would not be opposed to a trial of intubation and MV. The hope is his fluid overload would respond to dyalisis and if intubation were required, he would be able to be extubated. New MOLST form updated. (2) Anemia Comment: - Hb dropped from 11.8 to 6.7 today - multifactorial. - On high dose steroids and BUN elevation - could have GI bleed - start Protonix drip and consult GI. - No signs of active bleeding at this time - stool negative for blood, CT showed no hematoma, normal bilirubin argues against hemolysis. - Will transfuse 2 PRBCs and request Hematology consult. (3) Thrombocytopenia Comment: - Platelets 291 on admission down to 42 - it could be drug related ( mycophenolate already d/c, ampicillin completed today). - Heme consult requested. (4) Weakness Comment: - Possible steroid myopathy, progressing. - CPK is normal, aldolase pending. - Neurology consult appreciated - plan for EMG, recommended tapering steroids. - There was concern for possible facial weakness, suggesting myasthenic symptoms (could be paraneoplastic manifestation) - check acethylcholine receptor antibody binding. - D/w Dr Em - will d/c prednisone, start Solumedrol 20mg/day, d/c Mycophenolate, and obtain Acthar gel to switch from steroids when available. (5) Nephrotic syndrome Comment: - Secondary to FSGS, likely primary, with extensive foot process effacement on biopsy - D/w Dr Em - his renal function is worse today and he is not responding to Albumin/Furosemide like he did on his prior admission. Plan is for dyalisis catheter placement. - Strict weights daily. - ANCA positive of unclear significance as PR3 and MPO are negative and his FSGS is likely primary with extensive foot process effacement. - Dr Christopher ordered extensive w/u for secondary causes including EBV, parvovirus, MALCOLM, repeat ANCA panel, cryoglobulin, SPEP, UPEP, serum free light chains. - Hepatitis B, C, HIV, anti gbm are negative. (6) Acute kidney failure Comment: - Renal function worse today with BUN/Cr 103/3.59 - d/w Dr Em - will plan on dyalisis catheter placement. D/w Dr Maguire - aware platelets are 42 and last Eliquis dose was 07/06/18 morning. (7) UTI (urinary tract infection) Comment: - Urine cx grew E. faecalis 06/26/18, reich-sens. - Completed 7 days of ampicillin. (8) Benign prostate hyperplasia Comment: - Continue Tamsulosin as tolerated. (9) Diabetes Comment: - Type 2 DM. - HgbA1c (05/16/18) =7.6. - NPO for now - off NPH and continue Lispro SS. (10) HTN (hypertension) Comment: - Hypotensive. - D/c Valsartan. (11) Renal vein thrombosis Comment: - Possible renal vein thrombosis. - D/c Eliquis due to significant anemia and thrombocytopenia. (12) DVT prophylaxis Comment: - D/c Apixaban due to possible bleed. - No SCDs due to anasarca. (13) DNR (do not resuscitate) Status and Disposition: Inpatient. called and updated about change in condition. 50 minutes Critical Care time.
[2018-07-07] MEDS: Pantoprazole* 80 mg IN NS 80 MG/250 ML BAG IVPB SCH ×3 (08:47→20:55)
[2018-07-07] MEDS: Sodium Citrate/Citric Acid* 15 ML UDC PO SCH ×3 (08:49→20:28)
[2018-07-07 08:50] LABS: Hematocrit 20 % (36-46); Hemoglobin 6.7 g/dL (14.0-18.0); Mean Corpuscular HGB Conc 34 g/dL (31-36); Mean Corpuscular Hemoglobin 28 pg (27-31); Mean Corpuscular Volume 82 fL (80-94); Platelet Count 42 10^3/uL (150-450); Red Blood Count 2.41 10^6 /uL (4.18-5.48); Red Cell Distribution Width 20 % (10.5-15); White Blood Count 6.9 10^3/uL (3.5-10.8)
--- NOTE | 2018-07-07 09:01 | PN ---
Date of Service: 07/07/18 - HD 7 Critical Care Services: 56 yo M with FSGN and hypoproteinemia, frequently admitted for albumin infusions and diuresis. Presented to ED on 07/01 with malaise, generalized weakness, right arm pain and shortness of breath. Per patient's this started after steriods were recently increased. On the day of presentation he tripped and fell on a curb, sustaining abrasions to nose. CTs of face and cervical spine negative for fracture. US of right arm negative for DVT. Admitted to hospitalist service with UTI and arm swelling. 07/02: Albumin infusion and furosemide for diuresis. Prednisone dose decreased to 40 QD due to weakness 07/03: continues to feel weak. episodes of hypoglycemia. Furosemide increased to TID. continued on MMF 07/04: Prednisone adjusted to 40mg QAM and 20mg QPM. Albumin infusion @ 4 g/hr 07/05: weaker today, requiring assistance ambulating to bathroom. Albumin increased to 5g/hr. Neurology consult placed. 07/06: Question of bulbar muscle weakness. Now with increased work of breathing. Started on BiPAP and transferred to ICU. Urine culture (+) for enterococcus, on day 08/10 ampicillin Vital Signs: Temp Pulse Resp BP SpO2 FiO2 97.1 F 97 24 116/68 94 40 07/07/18 07:42 07/07/18 07:00 07/07/18 08:05 07/07/18 07:00 07/07/18 07:00 07/07 07:41 Physical Exam: Gen: resting in bed, increased work of breathing HEENT: NC in place Lungs: CTAB Cardiac: RRR Abdomen: soft, NTND Extremities: warm, dry, edematous Neuro: lethargic Fluid Balance (Past 24 Hours): I= O= Net Intake & Output 07/05/18 07/06/18 07/07/18 07/08/18 06:59 06:59 06:59 06:59 Intake Total 834 1569 596 Output Total 3100 1050 430 20 Balance -2266 519 166 -20 Weight 245 lb 11.2 oz 238 lb 14.4 oz 244 lb 0.827 oz Intake: IV Fluids 60 260 NS (0.9%) 60 60 albumin 200 IVPB 529 136 NS (0.9%) 429 albumin 100 136 Medicated IV 274 GEN - Albumin 274 Oral 560 980 200 Output: Urine 160 Rose 1900 1050 270 20 Residual 1200 Rose 16 Fr 1200 Other: Estimated Void Medium Date of Last Bowel [id number] t Movement # Bowel Movements 0 2 Estimated Stool Amount Large Medium # Voids 0 Labs: Laboratory Results - last 24 hr 07/03/18 07/03/18 07/03/18 19:13 19:13 19:13 WBC RBC Hgb Hct MCV MCH MCHC RDW Plt Count MPV Neut % (Auto) Lymph % (Auto) Lyman % (Auto) Eos % (Auto) Baso % (Auto) Absolute Neuts (auto) Absolute Lymphs (auto) Absolute Monos (auto) Absolute Eos (auto) Absolute Basos (auto) Absolute Nucleated RBC Nucleated RBC % Hem Pathologist Commnt INR (Anticoag Therapy) APTT Patient Temperature ABG pH ABG pH (Temp Correct) ABG pCO2 ABG pCO2 (Temp Corrct ABG pO2 ABG pO2 (Temp Correct ABG HCO3 ABG O2 Saturation ABG Base Excess Respiration Rate O2 Delivery Device Ventilator Type Vent Mode FiO2 Inspiratory Time PEEP Pressure Support Pressure Control EPAP IPAP BiPAP Sodium Potassium Chloride Carbon Dioxide Anion Gap BUN Creatinine Est GFR ( Amer) Est GFR (Non-Af Amer) BUN/Creatinine Ratio Glucose POC Glucose (mg/dL) Calcium Total Bilirubin Direct Bilirubin Indirect Bilirubin AST ALT Alkaline Phosphatase Total Protein Albumin Globulin Albumin/Globulin Ratio Aldolase 25.6 H Urine Collection Time Urine Total Volume Ur Creatinine 24 Hour Ur Creatinine Concen Ur Total Protein Conc Ur Total Protein 24 Hr U Tot [place] Light Ch U Tot Lambda Light Ch Tot [place]/Lambda Ratio [place] Light Chain Lambda Light Chain [place]/Lambda Ratio Proteinase 3 (PR3) < 0.2 Myeloperoxidase Ab < 0.2 Glomerular Base Memb Ab CMV Qnt PCR IU/mL Undetected Blood Type Antibody Screen Crossmatch 07/03/18 07/03/18 07/04/18 19:13 19:13 01:00 WBC RBC Hgb Hct MCV MCH MCHC RDW Plt Count MPV Neut % (Auto) Lymph % (Auto) Lyman % (Auto) Eos % (Auto) Baso % (Auto) Absolute Neuts (auto) Absolute Lymphs (auto) Absolute Monos (auto) Absolute Eos (auto) Absolute Basos (auto) Absolute Nucleated RBC Nucleated RBC % Hem Pathologist Commnt INR (Anticoag Therapy) APTT Patient Temperature ABG pH ABG pH (Temp Correct) ABG pCO2 ABG pCO2 (Temp Corrct ABG pO2 ABG pO2 (Temp Correct ABG HCO3 ABG O2 Saturation ABG Base Excess Respiration Rate O2 Delivery Device Ventilator Type Vent Mode FiO2 Inspiratory Time PEEP Pressure Support Pressure Control EPAP IPAP BiPAP Sodium Potassium Chloride Carbon Dioxide Anion Gap BUN Creatinine Est GFR ( Amer) Est GFR (Non-Af Amer) BUN/Creatinine Ratio Glucose POC Glucose (mg/dL) Calcium Total Bilirubin Direct Bilirubin Indirect Bilirubin AST ALT Alkaline Phosphatase Total Protein Albumin Globulin Albumin/Globulin Ratio Aldolase Urine Collection Time Urine Total Volume Ur Creatinine 24 Hour Ur Creatinine Concen Ur Total Protein Conc Ur Total Protein 24 Hr U Tot [place] Light Ch 10.7 H U Tot Lambda Light Ch 6.11 H Tot [place]/Lambda Ratio 1.75 [place] Light Chain 3.97 H Lambda Light Chain 1.60 [place]/Lambda Ratio 2.48 H Proteinase 3 (PR3) Myeloperoxidase Ab Glomerular Base Memb Ab <0.2 CMV Qnt PCR IU/mL Blood Type Antibody Screen Crossmatch 07/05/18 07/06/18 07/06/18 15:09 09:39 09:50 WBC RBC Hgb Hct MCV MCH MCHC RDW Plt Count MPV Neut % (Auto) Lymph % (Auto) Lyman % (Auto) Eos % (Auto) Baso % (Auto) Absolute Neuts (auto) Absolute Lymphs (auto) Absolute Monos (auto) Absolute Eos (auto) Absolute Basos (auto) Absolute Nucleated RBC Nucleated RBC % Hem Pathologist Commnt INR (Anticoag Therapy) APTT Patient Temperature Not Reportable ABG pH 7.42 ABG pH (Temp Correct) Not Reportable ABG pCO2 26 L ABG pCO2 (Temp Corrct Not Reportable ABG pO2 112 H ABG pO2 (Temp Correct Not Reportable ABG HCO3 20.3 ABG O2 Saturation 99.2 H ABG Base Excess -6.0 L Respiration Rate 16 O2 Delivery Device bipap Ventilator Type Not Reportable Vent Mode st FiO2 40 Inspiratory Time Not Reportable PEEP Not Reportable Pressure Support Not Reportable Pressure Control Not Reportable EPAP 8 IPAP 12 BiPAP Not Reportable Sodium Potassium Chloride Carbon Dioxide Anion Gap BUN Creatinine Est GFR ( Amer) Est GFR (Non-Af Amer) BUN/Creatinine Ratio Glucose POC Glucose (mg/dL) Calcium Total Bilirubin Direct Bilirubin Indirect Bilirubin AST ALT Alkaline Phosphatase Total Protein Albumin Globulin Albumin/Globulin Ratio Aldolase Urine Collection Time 24 Urine Total Volume 450 Ur Creatinine 24 Hour 368.32 L Ur Creatinine Concen 81.85 Ur Total Protein Conc 9730 Ur Total Protein 24 Hr 28060 H U Tot [place] Light Ch U Tot Lambda Light Ch Tot [place]/Lambda Ratio [place] Light Chain Lambda Light Chain [place]/Lambda Ratio Proteinase 3 (PR3) Myeloperoxidase Ab Glomerular Base Memb Ab CMV Qnt PCR IU/mL Blood Type Antibody Screen Crossmatch 07/06/18 07/06/18 07/07/18 12:31 16:49 03:57 WBC RBC Hgb Hct MCV MCH MCHC RDW Plt Count MPV Neut % (Auto) Lymph % (Auto) Lyman % (Auto) Eos % (Auto) Baso % (Auto) Absolute Neuts (auto) Absolute Lymphs (auto) Absolute Monos (auto) Absolute Eos (auto) Absolute Basos (auto) Absolute Nucleated RBC Nucleated RBC % Hem Pathologist Commnt INR (Anticoag Therapy) APTT Patient Temperature ABG pH ABG pH (Temp Correct) ABG pCO2 ABG pCO2 (Temp Corrct ABG pO2 ABG pO2 (Temp Correct ABG HCO3 ABG O2 Saturation ABG Base Excess Respiration Rate O2 Delivery Device Ventilator Type Vent Mode FiO2 Inspiratory Time PEEP Pressure Support Pressure Control EPAP IPAP BiPAP Sodium Potassium Chloride Carbon Dioxide Anion Gap BUN Creatinine Est GFR ( Amer) Est GFR (Non-Af Amer) BUN/Creatinine Ratio Glucose POC Glucose (mg/dL) 104 H 93 147 H Calcium Total Bilirubin Direct Bilirubin Indirect Bilirubin AST ALT Alkaline Phosphatase Total Protein Albumin Globulin Albumin/Globulin Ratio Aldolase Urine Collection Time Urine Total Volume Ur Creatinine 24 Hour Ur Creatinine Concen Ur Total Protein Conc Ur Total Protein 24 Hr U Tot [place] Light Ch U Tot Lambda Light Ch Tot [place]/Lambda Ratio [place] Light Chain Lambda Light Chain [place]/Lambda Ratio Proteinase 3 (PR3) Myeloperoxidase Ab Glomerular Base Memb Ab CMV Qnt PCR IU/mL Blood Type Antibody Screen Crossmatch 07/07/18 07/07/18 07/07/18 04:31 04:31 04:31 WBC 8.3 RBC 2.48 L Hgb 6.9 L Hct 20 L MCV 82 MCH 28 MCHC 34 RDW 20 H Plt Count 50 L MPV 10.1 Neut % (Auto) 97.7 Lymph % (Auto) 0.4 Lyman % (Auto) 1.7 Eos % (Auto) 0.1 Baso % (Auto) 0.1 Absolute Neuts (auto) 8.1 H Absolute Lymphs (auto) 0 L Absolute Monos (auto) 0.1 Absolute Eos (auto) 0 Absolute Basos (auto) 0 Absolute Nucleated RBC 0 Nucleated RBC % 0 Hem Pathologist Commnt INR (Anticoag Therapy) 1.46 H APTT 43.8 H Patient Temperature ABG pH ABG pH (Temp Correct) ABG pCO2 ABG pCO2 (Temp Corrct ABG pO2 ABG pO2 (Temp Correct ABG HCO3 ABG O2 Saturation ABG Base Excess Respiration Rate O2 Delivery Device Ventilator Type Vent Mode FiO2 Inspiratory Time PEEP Pressure Support Pressure Control EPAP IPAP BiPAP Sodium 145 Potassium 4.1 Chloride 113 H Carbon Dioxide 16 L Anion Gap 16 H BUN 103 H Creatinine 3.59 H Est GFR ( Amer) 20.3 Est GFR (Non-Af Amer) 16.8 BUN/Creatinine Ratio 28.7 H Glucose 128 H POC Glucose (mg/dL) Calcium 7.9 L Total Bilirubin 0.80 Direct Bilirubin 0.30 H Indirect Bilirubin 0.5 AST 26 ALT 14 Alkaline Phosphatase 90 Total Protein 4.7 L Albumin 3.0 L Globulin 1.7 L Albumin/Globulin Ratio 1.8 Aldolase Urine Collection Time Urine Total Volume Ur Creatinine 24 Hour Ur Creatinine Concen Ur Total Protein Conc Ur Total Protein 24 Hr U Tot [place] Light Ch U Tot Lambda Light Ch Tot [place]/Lambda Ratio [place] Light Chain Lambda Light Chain [place]/Lambda Ratio Proteinase 3 (PR3) Myeloperoxidase Ab Glomerular Base Memb Ab CMV Qnt PCR IU/mL Blood Type Antibody Screen Crossmatch 07/07/18 07/07/18 04:31 06:45 WBC RBC Hgb Hct MCV MCH MCHC RDW Plt Count MPV Neut % (Auto) Lymph % (Auto) Lyman % (Auto) Eos % (Auto) Baso % (Auto) Absolute Neuts (auto) Absolute Lymphs (auto) Absolute Monos (auto) Absolute Eos (auto) Absolute Basos (auto) Absolute Nucleated RBC Nucleated RBC % Hem Pathologist Commnt INR (Anticoag Therapy) APTT Patient Temperature Not Reportable ABG pH 7.39 ABG pH (Temp Correct) Not Reportable ABG pCO2 25 L ABG pCO2 (Temp Corrct Not Reportable ABG pO2 89 ABG pO2 (Temp Correct Not Reportable ABG HCO3 18.6 L ABG O2 Saturation 98.4 H ABG Base Excess -8.1 L Respiration Rate Not Reportable O2 Delivery Device Bipap Ventilator Type Not Reportable Vent Mode Not Reportable FiO2 40 Inspiratory Time Not Reportable PEEP Not Reportable Pressure Support Not Reportable Pressure Control Not Reportable EPAP Not Reportable IPAP Not Reportable BiPAP Not Reportable Sodium Potassium Chloride Carbon Dioxide Anion Gap BUN Creatinine Est GFR ( Amer) Est GFR (Non-Af Amer) BUN/Creatinine Ratio Glucose POC Glucose (mg/dL) Calcium Total Bilirubin Direct Bilirubin Indirect Bilirubin AST ALT Alkaline Phosphatase Total Protein Albumin Globulin Albumin/Globulin Ratio Aldolase Urine Collection Time Urine Total Volume Ur Creatinine 24 Hour Ur Creatinine Concen Ur Total Protein Conc Ur Total Protein 24 Hr U Tot [place] Light Ch U Tot Lambda Light Ch Tot [place]/Lambda Ratio [place] Light Chain Lambda Light Chain [place]/Lambda Ratio Proteinase 3 (PR3) Myeloperoxidase Ab Glomerular Base Memb Ab CMV Qnt PCR IU/mL Blood Type A Positive Antibody Screen Negative Crossmatch See Detail Studies: 07/04 CT abd - anasarca, cholelithasis. no visualized neoplasm. 07/01 CXR - small left basilar effusion 07/01 XR R forearm - No fracture 07/01 XR R elbow - no fracture or dislocation 07/01 XR R humerus - no fracture or dislocation 07/01 US duplex RUE - no DVT 06/26 CT maxillofacial - NAD 06/26 CT cspine - NAD 06/26 CT brain - NAD. Age related changes Nutrition: Carb steady diet Impression: 72 yo M with FSGN on steriods and MMF frequently admitted for albumin infusions and IV diuresis returns this admission for generalized weakness. On albumin gtt and IV lasix. 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 Plan: Cardiovascular: (1) Chronic HTN -- HR 92-102 -- SBP 92-131 -- Telemetry -- Apixaban held for thrombocytopenia -- Atorvastatin Home meds: Atorvastatin, candesartan, Apixaban, Lasix Pulmonary: (1) Acute hypoxic respiratory failure secondary to respiratory muscle weakness -- RR 19-31 -- sats 91-98 -- started on BiPAP for increased work of breathing -- ABG: pH 7.39; pCO2 25; pO2 89; HCO3 18.6; BE -8.1 on BiPAP. -- DNI Home meds: None Gastrointestinal: (1) Chronic constipation -- diet: NPO while on BiPAP -- bowel regimen: Fleets enema -- ulcer prophylaxis: protonix Home meds: Zofran Endocrine: (1) Diabetes mellitus -- monitor BGs -- Solumedrol, dose decreased. plan to switch to ACTH gel when available -- SSI Home meds: Humulin N, prednisone Renal: (1) FSGN; (2) Nephrotic syndrome; (3) Acute kidney injury; (4) BPH; (5) Chronic hypokalemia; (6) UTI -- UOP: 18 ml/hr -- I/O:596 ml in / 430 ml out -- Cr 3.59 from 2.90 from 2.88 -- Lytes Na 145 from 146 K 4.1 Ca 7.9 -- Albumin @ 5 g/hr -- Lasix 80 mg TID -- Solumedrol and MMF. 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; (2) Chronic anxiety -- PRN Oxycodone -- PRN Clonazepam and Ativan for anxiety -- Neurology consult in progress Home meds: Clonazepam, benadryl Hematological: (1) Anemia; (2) Thrombocytopenia; (3) Coagulopathy -- Hgb 6.7 from 6.9 from 8.3 from 9.5 from 11.8 -- Plt 42 from 560 from 88 from 167 from 291 -- Coags INR 1.46 from 0.92 APTT 43.8 from 29.4 -- DVT prophylaxis: Apixaban held for thrombocytopenia -- Hematology consulted Home meds: Apixaban Other: Home meds: Vit B12 Deep vein thrombosis prophylaxis: Apixaban held for thrombocytopenia Dietary: protonix Condition: critical Prognosis: poor Code status: DNR/DNI Disposition: continue ICU Care updated at bedside regarding interval events and plan of care Cumulative time spent in the care of this patient (excluding any procedure time) : at least 40 minutes. Patient care included clinical interview (with patient and/or family), bedside exam of the patient, review of labs, x-rays, and other ancillary data, coordination of (respiratory, nursing care, review of patient's records, discussion regarding patients management with involved consultants, primary physician, pharmacists, and other healthcare personnel (dietary, case management , physical/occupational therapy etc.) Critical Care Time: 40 min
[2018-07-07 09:27] LABS: ABS Neutrophils 6.5 10^3/ul (1.5-7.7); Lymphocytes % 1 %; Monocytes % 3 %; Neutrophil % 94 %
[2018-07-07 09:28] LABS: ABS Eosinophils 0.1 10^3/ul (0-0.6); Acanthocytes 1+; Burr Cells 2+; Schistocytes 1+
--- NOTE | 2018-07-07 10:24 | CONSULT ---
Consultation - Reason for Consultation Reason for Consultation: anemia and thrombocytopenia Ordering Provider: Mya Bynum Chief Complaint: anemia and thrombocytopenia History of Present Illness: Of note, history entirely from chart review and discussing with staff/ physicians. 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 Given his progressive disease, and in an attempt to steroid spare, he was started on cellcept on 06/30. On admission he was started on ampicillin for a UTI on culture from the 26 of June (though it does not appear that he was on home antibiotics). Over his hospital course he has become progressively weak and SOB and was transferred to the ICU for closer management. We are being asked to consult for progressive and marked anemia and thrombocytopenia. Of note, on admission his Hb was at his baseline of 11.8. It is currently 6.7. His platelets were 291 and are now 42. His WBC was elevated on admission and is now normal. He has NOT been on heparin products, and in fact was on eliquis for a questionable renal vein thrombosis until today. His bilirubin and AST are normal, and LDH is pending at my request. Given his falling counts his cellcept was held. His steroids are being tapered off. Allergies/Medications Medication: Atorvastatin Calcium (Lipitor*) 40 mg PO DAILY [facility] Last Admin: 07/07/18 07:51 Dose: Not Given Citric Acid/Sodium Citrate (Bicitra*) 30 ml PO TID [facility] Last Admin: 07/07/18 08:49 Dose: Not Given Clonazepam (Klonopin Tab(*)) 0.5 mg PO BID [facility] Last Admin: 07/07/18 07:51 Dose: Not Given Dextrose (D50w Syringe 50 Ml*) 12.5 gm IV PUSH .FOR FS < 60 - SS PRN PRN Reason: FS < 60 Furosemide (Lasix Iv*) 80 mg IV TID [facility] Last Admin: 07/07/18 08:04 Dose: 80 mg Hydralazine HCl (Apresoline Iv*) 5 mg IV SLOW PU Q6H PRN PRN Reason: SYSTOLIC BP GREATER THAN: Ampicillin Sodium 1 gm/ Sodium (Chloride) 50 mls @ 200 mls/hr IVPB Q24H [facility] Stop: 07/07/18 23:59 Last Admin: 07/06/18 22:31 Dose: 200 mls/hr Albumin Human (Albumin Human 25%*) 25 gm in 100 mls @ 20 mls/hr IV Q6H [facility] Last Admin: 07/07/18 08:05 Dose: 20 mls/hr Pantoprazole Sodium (Protonix Iv Bag*) 80 mg in 250 mls @ 25 mls/hr IVPB Q10H [facility] Last Admin: 07/07/18 08:47 Dose: 25 mls/hr Insulin Human Lispro (Humalog*) 0 units SUBCUT Q4H [facility]; Protocol Last Admin: 07/07/18 09:43 Dose: Not Given Lorazepam (Ativan Inj*) 1 mg IV PUSH Q4H PRN PRN Reason: ANXIETY Last Admin: 07/07/18 08:05 Dose: 1 mg Methylprednisolone Sodium Succinate (Solu-Medrol 40 Mg) 20 mg IV DAILY [facility] Last Admin: 07/07/18 08:05 Dose: 20 mg Oxycodone HCl (Roxycodone Tab*) 2.5 mg PO Q3H PRN PRN Reason: PAIN Last Admin: 07/07/18 00:43 Dose: 2.5 mg Sodium Biphosphate/Sodium Phosphate (Fleet Enema*) 1 bottle [place] DAILY PRN PRN Reason: CONSTIPATION Last Admin: 07/06/18 15:00 Dose: 1 bottle Tamsulosin HCl (Flomax Cap*) 0.4 mg PO DAILY [facility] Last Admin: 07/07/18 07:51 Dose: Not Given Allergies/Adverse Reactions: Allergies Allergy/AdvReac Type Severity Reaction Status Date / Time No Known Allergies Allergy Verified 06/26/18 21:32 History - Past Medical History Other History: DM. hyperlipidemia. anxiety. nephrotic syndrome. ?renal vein thrombosis. polypectomy. BPH - Family History Hx Family Cancer: Yes - mother lymphoma - Social History Hx Alcohol Use: No Hx Tobacco Use: No Marital Status: Physical Exam - Physical Exam Physical Examination: Vital Signs Temp Pulse Resp BP Pulse Ox 97.1 F 97 29 84/50 92 07/07/18 07:42 07/07/18 09:00 07/07/18 09:00 07/07/18 09:00 07/07/18 09:00 sleepy, minimally responsive anasarcic BIPAP mask in place CTA anteriorly s1 s2 nl obese no clear ttp, no HSM 3+ edema opens eyes, follows commands to move arms minimally, will not move legs scattered ecchymoses Results - Lab Results Lab Results: 07/03/18 07/03/18 07/03/18 19:13 19:13 19:13 WBC RBC Hgb Hct MCV MCH MCHC RDW Plt Count MPV Neut % (Auto) Lymph % (Auto) [place] % (Auto) Eos % (Auto) Baso % (Auto) Absolute Neuts (auto) Absolute Lymphs (auto) Absolute Monos (auto) Absolute Eos (auto) Absolute Basos (auto) Absolute Nucleated RBC Neutrophils % Lymphocytes % Monocytes % Eosinophils % Nucleated RBC % Abs Neuts (Manual) Abs Lymphs (Manual) Abs Monocytes (Manual) Absolute Eos (Manual) Dohle Bodies Normal RBC Morphology Jose Cells Elliptocytes Acanthocytes (Spur) Rouleaux Schistocytes Hem Pathologist Commnt INR (Anticoag Therapy) APTT Patient Temperature ABG pH ABG pH (Temp Correct) ABG pCO2 ABG pCO2 (Temp Corrct ABG pO2 ABG pO2 (Temp Correct ABG HCO3 ABG O2 Saturation ABG Base Excess Respiration Rate O2 Delivery Device Ventilator Type Vent Mode FiO2 Inspiratory Time PEEP Pressure Support Pressure Control EPAP IPAP BiPAP Sodium Potassium Chloride Carbon Dioxide Anion Gap BUN Creatinine Est GFR ( Amer) Est GFR (Non-Af Amer) BUN/Creatinine Ratio Glucose POC Glucose (mg/dL) Calcium Total Bilirubin Direct Bilirubin Indirect Bilirubin AST ALT Alkaline Phosphatase Total Creatine Kinase Total Protein Albumin Globulin Albumin/Globulin Ratio Aldolase Vitamin B12 Urine Collection Time Urine Total Volume Ur Creatinine 24 Hour Ur Creatinine Concen Ur Total Protein Conc Ur Total Protein 24 Hr Ur Sodium 24 Hour U Sodium Concentration Urine Potassium Ur Potassium 24 Hour Ur Chloride 24 Hour Ur Chloride Concentrat U Tot [place] Light Ch U Tot Lambda Light Ch Tot [place]/Lambda Ratio [place] Light Chain 3.97 H Lambda Light Chain 1.60 [place]/Lambda Ratio 2.48 H Proteinase 3 (PR3) Myeloperoxidase Ab Glomerular Base Memb Ab <0.2 CMV Qnt PCR IU/mL Hep Bs Antigen Nonreactive Hepatitis C Antibody Nonreactive Hepatitis C Ab Index < 0.0 HIV 1&2 Antibody Nonreactive Blood Type Antibody Screen Crossmatch 07/04/18 07/04/18 07/04/18 01:00 01:08 11:03 WBC RBC Hgb Hct MCV MCH MCHC RDW Plt Count MPV Neut % (Auto) Lymph % (Auto) [place] % (Auto) Eos % (Auto) Baso % (Auto) Absolute Neuts (auto) Absolute Lymphs (auto) Absolute Monos (auto) Absolute Eos (auto) Absolute Basos (auto) Absolute Nucleated RBC Neutrophils % Lymphocytes % Monocytes % Eosinophils % Nucleated RBC % Abs Neuts (Manual) Abs Lymphs (Manual) Abs Monocytes (Manual) Absolute Eos (Manual) Dohle Bodies Normal RBC Morphology Jose Cells Elliptocytes Acanthocytes (Spur) Rouleaux Schistocytes Hem Pathologist Commnt INR (Anticoag Therapy) APTT Patient Temperature ABG pH ABG pH (Temp Correct) ABG pCO2 ABG pCO2 (Temp Corrct ABG pO2 ABG pO2 (Temp Correct ABG HCO3 ABG O2 Saturation ABG Base Excess Respiration Rate O2 Delivery Device Ventilator Type Vent Mode FiO2 Inspiratory Time PEEP Pressure Support Pressure Control EPAP IPAP BiPAP Sodium Potassium Chloride Carbon Dioxide Anion Gap BUN Creatinine Est GFR ( Amer) Est GFR (Non-Af Amer) BUN/Creatinine Ratio Glucose POC Glucose (mg/dL) 121 H Calcium Total Bilirubin Direct Bilirubin Indirect Bilirubin AST ALT Alkaline Phosphatase Total Creatine Kinase Total Protein Albumin Globulin Albumin/Globulin Ratio Aldolase Vitamin B12 Urine Collection Time 24 Urine Total Volume 1600 Ur Creatinine 24 Hour Ur Creatinine Concen Ur Total Protein Conc Ur Total Protein 24 Hr Ur Sodium 24 Hour 60 U Sodium Concentration 38 Urine Potassium 42.9 Ur Potassium 24 Hour 69 Ur Chloride 24 Hour 76 L Ur Chloride Concentrat 48 U Tot [place] Light Ch 10.7 H U Tot Lambda Light Ch 6.11 H Tot [place]/Lambda Ratio 1.75 [place] Light Chain Lambda Light Chain [place]/Lambda Ratio Proteinase 3 (PR3) Myeloperoxidase Ab Glomerular Base Memb Ab CMV Qnt PCR IU/mL Hep Bs Antigen Hepatitis C Antibody Hepatitis C Ab Index HIV 1&2 Antibody Blood Type Antibody Screen Crossmatch 07/05/18 07/05/18 07/05/18 15:09 15:09 15:09 WBC 8.0 RBC 2.93 L Hgb 8.3 L Hct 24 L MCV 81 MCH 28 MCHC 35 RDW 20 H Plt Count 88 L D MPV 9.2 Neut % (Auto) 90.8 Lymph % (Auto) 0.5 Peach % (Auto) 7.8 Eos % (Auto) 0.2 Baso % (Auto) 0.7 Absolute Neuts (auto) 7.2 Absolute Lymphs (auto) 0 L Absolute Monos (auto) 0.6 Absolute Eos (auto) 0 Absolute Basos (auto) 0.1 Absolute Nucleated RBC 0 Neutrophils % Lymphocytes % Monocytes % Eosinophils % Nucleated RBC % 0 Abs Neuts (Manual) Abs Lymphs (Manual) Abs Monocytes (Manual) Absolute Eos (Manual) Dohle Bodies Normal RBC Morphology Jose Cells Elliptocytes Acanthocytes (Spur) Rouleaux Schistocytes Hem Pathologist Commnt INR (Anticoag Therapy) APTT Patient Temperature ABG pH ABG pH (Temp Correct) ABG pCO2 ABG pCO2 (Temp Corrct ABG pO2 ABG pO2 (Temp Correct ABG HCO3 ABG O2 Saturation ABG Base Excess Respiration Rate O2 Delivery Device Ventilator Type Vent Mode FiO2 Inspiratory Time PEEP Pressure Support Pressure Control EPAP IPAP BiPAP Sodium 146 H 146 H Potassium 3.6 3.6 Chloride 115 H 115 H Carbon Dioxide 16 L 15 L Anion Gap 15 H 16 H BUN 89 H 88 H Creatinine 2.88 H 2.90 H Est GFR ( Amer) 26.1 25.9 Est GFR (Non-Af Amer) 21.6 21.4 BUN/Creatinine Ratio 30.9 H 30.3 H Glucose 103 H 104 H POC Glucose (mg/dL) Calcium 7.9 L 7.9 L Total Bilirubin Direct Bilirubin Indirect Bilirubin AST ALT Alkaline Phosphatase Total Creatine Kinase 49 Total Protein Albumin 2.4 L Globulin Albumin/Globulin Ratio Aldolase Vitamin B12 Urine Collection Time Urine Total Volume Ur Creatinine 24 Hour Ur Creatinine Concen Ur Total Protein Conc Ur Total Protein 24 Hr Ur Sodium 24 Hour U Sodium Concentration Urine Potassium Ur Potassium 24 Hour Ur Chloride 24 Hour Ur Chloride Concentrat U Tot [place] Light Ch U Tot Lambda Light Ch Tot [place]/Lambda Ratio [place] Light Chain Lambda Light Chain [place]/Lambda Ratio Proteinase 3 (PR3) Myeloperoxidase Ab Glomerular Base Memb Ab CMV Qnt PCR IU/mL Hep Bs Antigen Hepatitis C Antibody Hepatitis C Ab Index HIV 1&2 Antibody Blood Type Antibody Screen Crossmatch 07/06/18 07/07/18 07/07/18 16:49 03:57 04:31 WBC 8.3 RBC 2.48 L Hgb 6.9 L Hct 20 L MCV 82 MCH 28 MCHC 34 RDW 20 H Plt Count 50 L MPV 10.1 Neut % (Auto) 97.7 Lymph % (Auto) 0.4 Peach % (Auto) 1.7 Eos % (Auto) 0.1 Baso % (Auto) 0.1 Absolute Neuts (auto) 8.1 H Absolute Lymphs (auto) 0 L Absolute Monos (auto) 0.1 Absolute Eos (auto) 0 Absolute Basos (auto) 0 Absolute Nucleated RBC 0 Neutrophils % Lymphocytes % Monocytes % Eosinophils % Nucleated RBC % 0 Abs Neuts (Manual) Abs Lymphs (Manual) Abs Monocytes (Manual) Absolute Eos (Manual) Dohle Bodies Normal RBC Morphology [place] Cells Elliptocytes Acanthocytes (Spur) Rouleaux Schistocytes Hem Pathologist Commnt INR (Anticoag Therapy) APTT Patient Temperature ABG pH ABG pH (Temp Correct) ABG pCO2 ABG pCO2 (Temp Corrct ABG pO2 ABG pO2 (Temp Correct ABG HCO3 ABG O2 Saturation ABG Base Excess Respiration Rate O2 Delivery Device Ventilator Type Vent Mode FiO2 Inspiratory Time PEEP Pressure Support Pressure Control EPAP IPAP BiPAP Sodium Potassium Chloride Carbon Dioxide Anion Gap BUN Creatinine Est GFR ( Amer) Est GFR (Non-Af Amer) BUN/Creatinine Ratio Glucose POC Glucose (mg/dL) 93 147 H Calcium Total Bilirubin Direct Bilirubin Indirect Bilirubin AST ALT Alkaline Phosphatase Total Creatine Kinase Total Protein Albumin Globulin Albumin/Globulin Ratio Aldolase Vitamin B12 Urine Collection Time Urine Total Volume Ur Creatinine 24 Hour Ur Creatinine Concen Ur Total Protein Conc Ur Total Protein 24 Hr Ur Sodium 24 Hour U Sodium Concentration Urine Potassium Ur Potassium 24 Hour Ur Chloride 24 Hour Ur Chloride Concentrat U Tot [place] Light Ch U Tot Lambda Light Ch Tot [place]/Lambda Ratio [place] Light Chain Lambda Light Chain [place]/Lambda Ratio Proteinase 3 (PR3) Myeloperoxidase Ab Glomerular Base Memb Ab CMV Qnt PCR IU/mL Hep Bs Antigen Hepatitis C Antibody Hepatitis C Ab Index HIV 1&2 Antibody Blood Type Antibody Screen Crossmatch 07/07/18 07/07/18 07/07/18 04:31 04:31 04:31 WBC RBC Hgb Hct MCV MCH MCHC RDW Plt Count MPV Neut % (Auto) Lymph % (Auto) Peach % (Auto) Eos % (Auto) Baso % (Auto) Absolute Neuts (auto) Absolute Lymphs (auto) Absolute Monos (auto) Absolute Eos (auto) Absolute Basos (auto) Absolute Nucleated RBC Neutrophils % Lymphocytes % Monocytes % Eosinophils % Nucleated RBC % Abs Neuts (Manual) Abs Lymphs (Manual) Abs Monocytes (Manual) Absolute Eos (Manual) Dohle Bodies Normal RBC Morphology [place] Cells Elliptocytes Acanthocytes (Spur) Rouleaux Schistocytes Hem Pathologist Commnt INR (Anticoag Therapy) 1.46 H APTT 43.8 H Patient Temperature ABG pH ABG pH (Temp Correct) ABG pCO2 ABG pCO2 (Temp Corrct ABG pO2 ABG pO2 (Temp Correct ABG HCO3 ABG O2 Saturation ABG Base Excess Respiration Rate O2 Delivery Device Ventilator Type Vent Mode FiO2 Inspiratory Time PEEP Pressure Support Pressure Control EPAP IPAP BiPAP Sodium 145 Potassium 4.1 Chloride 113 H Carbon Dioxide 16 L Anion Gap 16 H BUN 103 H Creatinine 3.59 H Est GFR ( Amer) 20.3 Est GFR (Non-Af Amer) 16.8 BUN/Creatinine Ratio 28.7 H Glucose 128 H POC Glucose (mg/dL) Calcium 7.9 L Total Bilirubin 0.80 Direct Bilirubin 0.30 H Indirect Bilirubin 0.5 AST 26 ALT 14 Alkaline Phosphatase 90 Total Creatine Kinase Total Protein 4.7 L Albumin 3.0 L Globulin 1.7 L Albumin/Globulin Ratio 1.8 Aldolase Vitamin B12 Urine Collection Time Urine Total Volume Ur Creatinine 24 Hour Ur Creatinine Concen Ur Total Protein Conc Ur Total Protein 24 Hr Ur Sodium 24 Hour U Sodium Concentration Urine Potassium Ur Potassium 24 Hour Ur Chloride 24 Hour Ur Chloride Concentrat U Tot [place] Light Ch U Tot Lambda Light Ch Tot [place]/Lambda Ratio [place] Light Chain Lambda Light Chain [place]/Lambda Ratio Proteinase 3 (PR3) Myeloperoxidase Ab Glomerular Base Memb Ab CMV Qnt PCR IU/mL Hep Bs Antigen Hepatitis C Antibody Hepatitis C Ab Index HIV 1&2 Antibody Blood Type A Positive Antibody Screen Negative Crossmatch See Detail 07/07/18 07/07/18 07/07/18 06:45 08:24 08:24 WBC 6.9 RBC 2.41 L Hgb 6.7 L Hct 20 L MCV 82 MCH 28 MCHC 34 RDW 20 H Plt Count 42 L MPV 10.0 Neut % (Auto) Not Reportable Lymph % (Auto) Not Reportable Peach % (Auto) Not Reportable Eos % (Auto) Not Reportable Baso % (Auto) Not Reportable Absolute Neuts (auto) Not Reportable Absolute Lymphs (auto) Not Reportable Absolute Monos (auto) Not Reportable Absolute Eos (auto) Not Reportable Absolute Basos (auto) Not Reportable Absolute Nucleated RBC Not Reportable Neutrophils % 94 Lymphocytes % 1 Monocytes % 3 Eosinophils % 2 Nucleated RBC % Not Reportable Abs Neuts (Manual) 6.5 Abs Lymphs (Manual) 0.07 L Abs Monocytes (Manual) 0.2 Absolute Eos (Manual) 0.1 Dohle Bodies Present Normal RBC Morphology Normal [place] Cells 2+ Elliptocytes 2+ Acanthocytes (Spur) 1+ Rouleaux 3+ Schistocytes 1+ Hem Pathologist Commnt INR (Anticoag Therapy) APTT Patient Temperature Not Reportable ABG pH 7.39 ABG pH (Temp Correct) Not Reportable ABG pCO2 25 L ABG pCO2 (Temp Corrct Not Reportable ABG pO2 89 ABG pO2 (Temp Correct Not Reportable ABG HCO3 18.6 L ABG O2 Saturation 98.4 H ABG Base Excess -8.1 L Respiration Rate Not Reportable O2 Delivery Device Bipap Ventilator Type Not Reportable Vent Mode Not Reportable FiO2 40 Inspiratory Time Not Reportable PEEP Not Reportable Pressure Support Not Reportable Pressure Control Not Reportable EPAP Not Reportable IPAP Not Reportable BiPAP Not Reportable Sodium Potassium Chloride Carbon Dioxide Anion Gap BUN Creatinine Est GFR ( Amer) Est GFR (Non-Af Amer) BUN/Creatinine Ratio Glucose 124 H POC Glucose (mg/dL) Calcium Total Bilirubin Direct Bilirubin Indirect Bilirubin AST ALT Alkaline Phosphatase Total Creatine Kinase Total Protein Albumin Globulin Albumin/Globulin Ratio Aldolase Vitamin B12 Urine Collection Time Urine Total Volume Ur Creatinine 24 Hour Ur Creatinine Concen Ur Total Protein Conc Ur Total Protein 24 Hr Ur Sodium 24 Hour U Sodium Concentration Urine Potassium Ur Potassium 24 Hour Ur Chloride 24 Hour Ur Chloride Concentrat U Tot [place] Light Ch U Tot Lambda Light Ch Tot [place]/Lambda Ratio [place] Light Chain Lambda Light Chain [place]/Lambda Ratio Proteinase 3 (PR3) Myeloperoxidase Ab Glomerular Base Memb Ab CMV Qnt PCR IU/mL Hep Bs Antigen Hepatitis C Antibody Hepatitis C Ab Index HIV 1&2 Antibody Blood Type Antibody Screen Crossmatch smear: +jose cells, very rare schistocytes, +toxic granulations, no teardrop cells, occ large plts, thrombocytopenia Assessment and Plan Impression: Very complicated 72 yo M w nephrotic syndrome with progressive weakness, anasarca, and respiratory failure, with course complicated by inpatient development of marked anemia and thrombocytopenia. I strongly suspect that this is related to the cellcept +/- the ampicillin. There is no evidence of hemolysis (nl bilirubin, nl AST, no schistocytes) to support TTP. Guaiac negativity and CT without hematoma rules out acute blood loss. If this is in fact drug-induced, as suspected, it can take several weeks to resolve, though in this critical state it is not clear to me that he will survive that long. Thank you for this consultation and we will continue to follow with you.
[2018-07-07] MEDS ORDERED: Lidocaine 1% INJ* 10 MG/ML 30 ML SDV ONE (10:59)
[2018-07-07] MEDS ORDERED: Norepinephrine 16MCG/ML IVPRE* 4,000 MCG/250 ML BAG IV ONE (11:36)
[2018-07-07] MEDS ORDERED: Etomidate* 2 MG/ML 20 ML VIAL (40 MG) ONE (12:11)
[2018-07-07] MEDS ORDERED: Midazolam* 1 MG/ML 10 ML VIAL (10 MG) ONE (12:11)
--- NOTE | 2018-07-07 12:52 | OP ---
Operative Report - Blank - Operative Report Date of Operation: 07/07/18 Note: Procedure: Intubation Consent obtained: Verbal, from Time out performed: Yes Indications: Respiratory distress and altered mental status Intubation method: Video-assisted Patient status: Unconscious Preoxygenation: BVM Pretreatment meds: Versed SEdation: Etomidate Paralytic: None Laryngoscope size: 4Mac ETT size: 8.0 F Type: Cuffed # of attempts: 1 Cords visualized: Yes Post procedure assessment: CO2 detector Breath sounds: Equal bilaterally Cuff inflated: Yes ETT to lip: 24cm Tube secured with: ETT verma CXR: ETT in good position PT tolerated the procedure well with no immediate complications
[2018-07-07] MEDS: Midazolam IV for DRIP* 100 MG in NS 0.9% 100 ML* 80 ML IV SCH (12:57)
--- NOTE | 2018-07-07 12:58 | OP ---
Operative Report - Blank - Operative Report Date of Operation: 07/07/18 Note: Procedure: Central Line placement Consent obtained: emergent. consented retrospectively Time out performed: Yes Indications: Vascular access Anesthesia: Local infiltration Local anesthetic: 1% Lidocaine 5 ml Preparation: Chlorhexadine swab Skin prep agen dried: skin prep agent dried prior to procedure Sterile barrier: all five maximal sterile barriers used - gloves, gown, cap, mask and large sterile sheet Hand hygiene: Hand hygiene performed prior to central venous catheter insertion Location: Right IJ Patient position: trendelenberg Catheter type: HD catheter Catheter size: 13.5F Pre-procedure: landmarks identified Ultrasound guidance: Yes Sterile ultrasound technique: Sterile gel and sterile probe covers were used Number of attempts: 2 Successful placement: Yes Post-procedure: Line sutured, dressing applied Assessment: blood return through all ports, free fluid flow, no pneumothorax on CXR Complications: Small localized hematoma. Nonexpanding.
--- NOTE | 2018-07-07 13:02 | OP ---
Operative Report - Blank - Operative Report Date of Operation: 07/07/18 Note: Procedure: Central Line placement Consent obtained: emergent, consented in retrospect Time out performed: Yes Indications: Vascular access Anesthesia: Local infiltration Local anesthetic: 1% Lidocaine 5 ml Preparation: Chlorhexadine swab Skin prep agen dried: skin prep agent dried prior to procedure Sterile barrier: all five maximal sterile barriers used - gloves, gown, cap, mask and large sterile sheet Hand hygiene: Hand hygiene performed prior to central venous catheter insertion Location: Left IJ attempted, good flash but unable to thread. Site aborted Right femoral vein - successful Patient position: trendelenberg used for IJ attempt. Flat position for femoral attempt Catheter type: Triple lumen Catheter size: 7F Pre-procedure: landmarks identified Ultrasound guidance: Yes Sterile ultrasound technique: Sterile gel and sterile probe covers were used Number of attempts: 2 Successful placement: Yes Post-procedure: Line sutured, dressing applied Assessment: blood return through all ports, free fluid flow Complications: None Patient tolerated the procedure with no immediate complications
--- NOTE | 2018-07-07 15:34 | CONS ---
GASTROENTEROLOGY CONSULT REPORT: DATE OF CONSULT: 07/07/18 REQUESTING PROVIDER: Dr. Garvin. REASON FOR CONSULT: Concern for possible GI bleed. HISTORY OF PRESENT ILLNESS: History obtained from chart review. Mr. 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 He has been on steroids outpatient for nephrotic syndrome. 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 He is currently in the ICU. He has had some issues with shortness of breath and required time with BiPAP. He has since been intubated due to worsening respiratory failure due to volume overload. Labs have demonstrated a significant drop in his blood counts from a white count of 19.5 on admission to 6.9, hemoglobin has gone from 11.8 to 6.7, which corresponds to a hematocrit of 35 on admission to 20, and platelet count has gone from 291 to 42. No overt bleeding noted. Patient's Apixaban has been discontinued. A fecal occult stool was negative. GI consulted given the acute anemia. PAST MEDICAL HISTORY: Per the chart, the patient has a history of focal segmental glomerulonephritis with nephrotic syndrome; possible renal vein thrombosis, on apixaban; diabetes; hypertension; hyperlipidemia; anxiety; BPH. PAST SURGICAL HISTORY: Per H and P, the patient has a history of a polypectomy. MEDICATIONS: Home medicines include: 1. Mycophenolate. 2. Prednisone. 3. Klonopin. 4. Benadryl. 5. Flomax. 6. Potassium. 7. Zofran. 8. Insulin. 9. Lasix. 10. B12. 11. Candesartan. 12. Lipitor. 13. Apixaban. FAMILY HISTORY: Mother with lymphoma. Father with history of CAD and VA. SOCIAL HISTORY: Per H&P, the patient is not known to use alcohol or tobacco. No known drug use. REVIEW OF SYSTEMS: Unable to obtain as the patient is intubated and sedated. PHYSICAL EXAM: Vital Signs: Temp 99.3, heart rate 96, blood pressure 112/67, 95% on ventilator with FiO2 between 40% and 50%. General: The patient is an elderly gentleman. Intubated and sedated. HEENT: Lips are notable for some dried blood. Cardiovascular: Regular rate and rhythm. Pulm: Coarse breath sounds on ventilator. Abdomen: Positive bowel sounds. Obese, no grimacing with abdominal exam. Extremities: Edematous. Neuro: Unable to assess as the patient is sedated. He is seen moving his hands at times, although these movements do not appear to be particularly purposeful. Skin: Scattered ecchymoses. DIAGNOSTIC STUDIES/LAB DATA: Labs are reviewed in HPI. Current labs notable for white count of 6.9, hemoglobin of 6.7, hematocrit 20, platelet count 42. INR 1.46. BUN 103, creatinine 3.59. AST, ALT, and total bilirubin are normal. Albumin 3. Imaging: Chest, abdomen, and pelvis CT demonstrate large bilateral pleural effusions and compressive atelectasis. No retroperitoneal hematoma noted. Small amount of ascites identified. Brain CT without acute intracranial findings. Chest x-ray following dialysis line placement notable for pulmonary edema. ASSESSMENT AND PLAN: Mr. Harden is a 72-year-old gentleman with a complicated history including focal segmental glomerulonephritis with nephrotic syndrome and possible renal vein thrombosis (previously on Apixaban), who was admitted with anasarca and weakness. During his hospital stay, he has become quite anemic and thrombopenic. He has also had respiratory failure and is now intubated. A dialysis catheter was placed today. GI consulted given the acute drop in hemoglobin, raising concern for GI bleed, particularly in the setting of chronic steroid use. Fecal occult stool negative. The patient has not had any overt bleeding documented. Hematology has evaluated the patient and are quite suspicious that his anemia and thrombocytopenia are related to the CellCept plus/minus ampicillin. At this point, I have a low clinical suspicion for a gastrointestinal bleed as the source of the anemia, particularly given the absence of any overt bleeding despite a large blood count drop in a short period of time and the corresponding rapid decline in platelet count. I also am suspicious for a drug effect. Reassuringly, the patient's hematocrit has been stable x2 at 20. I would recommend continuing to monitor for now. If he were to develop any signs of overt GI bleeding, then we could consider upper endoscopy to assess. Can empirically continue pantoprazole for now. Thank you very much for this consult. Please contact GI if any acute clinical change. [id number]/CPS #: [id number] [facility]
--- NOTE | 2018-07-07 16:06 | PN ---
Subjective Date of Service: 07/07/18 Length of Stay: 6 Days Neurology is following for generalized weakness. Interval History: Reviewed the events that took place. I examined the patient prior to his intubation. He had episodes of delirium last night. He was given Ativan and was quite drowsy. Mrs. Harden was not at bedside. The patient has deteriorated to the point today where he does not communicate but is able to intermittent nod his head to simple questions. He was complaining of persistent weakness in his legs and arms. Steroids was reduced to 20 mg IV daily. CellCept discontinued due to thrombocytopenia and anemia. Hematology/oncology consulted. The patient was intubated this afternoon due to respiratory insufficiency. There are plans to start dialysis today. Review of Systems: He nodded yes to shortness of breath but no to CP, double vision, or headaches. Family History: Unchanged from Admission Social History: Unchanged from Admission Past Medical History: Unchanged from Admission Objective Active Medications: Atorvastatin Calcium (Lipitor*) 40 mg PO DAILY [facility] Last Admin: 07/07/18 07:51 Dose: Not Given Citric Acid/Sodium Citrate (Bicitra*) 30 ml PO TID [facility] Last Admin: 07/07/18 13:32 Dose: Not Given Clonazepam (Klonopin Tab(*)) 0.5 mg PO BID [facility] Last Admin: 07/07/18 07:51 Dose: Not Given Dextrose (D50w Syringe 50 Ml*) 12.5 gm IV PUSH .FOR FS < 60 - SS PRN PRN Reason: FS < 60 Hydralazine HCl (Apresoline Iv*) 5 mg IV SLOW PU Q6H PRN PRN Reason: SYSTOLIC BP GREATER THAN: Albumin Human (Albumin Human 25%*) 25 gm in 100 mls @ 20 mls/hr IV Q6H [facility] Last Admin: 07/07/18 15:12 Dose: 20 mls/hr Pantoprazole Sodium (Protonix Iv Bag*) 80 mg in 250 mls @ 25 mls/hr IVPB Q10H [facility] Last Admin: 07/07/18 08:47 Dose: 25 mls/hr Midazolam HCl 100 mg/ Sodium (Chloride) 100 mls @ 1 mls/hr IV Q24HR [facility]; Protocol Last Admin: 07/07/18 12:57 Dose: 1 mls/hr Insulin Human Lispro (Humalog*) 0 units SUBCUT Q4H [facility]; Protocol Last Admin: 07/07/18 14:11 Dose: Not Given Lorazepam (Ativan Inj*) 1 mg IV PUSH Q4H PRN PRN Reason: ANXIETY Last Admin: 07/07/18 08:05 Dose: 1 mg Methylprednisolone Sodium Succinate (Solu-Medrol 40 Mg) 20 mg IV DAILY [facility] Last Admin: 07/07/18 08:05 Dose: 20 mg Oxycodone HCl (Roxycodone Tab*) 2.5 mg PO Q3H PRN PRN Reason: PAIN Last Admin: 07/07/18 00:43 Dose: 2.5 mg Sodium Biphosphate/Sodium Phosphate (Fleet Enema*) 1 bottle IN DAILY PRN PRN Reason: CONSTIPATION Last Admin: 07/06/18 15:00 Dose: 1 bottle Tamsulosin HCl (Flomax Cap*) 0.4 mg PO DAILY [facility] Last Admin: 07/07/18 07:51 Dose: Not Given Vital Signs 07/07/18 07/07/18 07/07/18 14:00 14:15 14:30 Temperature Pulse Rate 95 95 95 Respiratory 25 Rate Blood Pressure 103/54 95/52 99/53 (mmHg) O2 Sat by Pulse 95 95 95 Oximetry 07/07/18 07/07/18 14:45 15:00 Temperature Pulse Rate 93 94 Respiratory 20 Rate Blood Pressure 86/49 84/50 (mmHg) O2 Sat by Pulse 95 95 Oximetry Intake and Output Last 24 Hours 07/05/18 07/06/18 07/07/18 07/08/18 06:59 06:59 06:59 06:59 Intake Total 834 1569 596 496 Output Total 3100 1050 430 45 Balance -2266 519 166 451 Weight 245 lb 11.2 oz 238 lb 14.4 oz 244 lb 0.827 oz Intake: IV Fluids 60 260 319 NS (0.9%) 60 60 40 albumin 200 279 IVPB 529 136 NS (0.9%) 429 albumin 100 136 Medicated IV 274 177 CC - Norepinephrine/ 90 Levophed GEN - Albumin 274 GEN - Pantoprazole/ 87 Protonix Oral 560 980 200 Output: Urine 160 Rose 1900 1050 270 45 Residual 1200 Rose 16 Fr 1200 Other: Estimated Void Medium Date of Last Bowel 920228 t Movement # Bowel Movements 0 2 Estimated Stool Amount Large Medium # Voids 0 Oxygen Devices in Use Now: Nasal Cannula Neurology Exam: General: Critically ill man who has anasarca. Appears to be in moderate respiratory distress but saturating in the mid 90's. HEENT: Normocephelic/atraumatic Neck: Supple Extremities: significant edema of all extremities, R>L. Neurological Findings: Drowsy, partially opens the eyes R>L. He does not verbalize but was on the BiPAP when examined. He nodded yes and no appropriately. Unable to assess speech or for language. PERRL, EOM-I. He has ptosis on the left. His spouse stated to me that this was chronic but it appears worse today. 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 Motor: severe proximal>distal upper and lower extremity weakness. 0/5 to shoulder abduction or hip flexion. Sensation: intact to LT. Deep Tendon Reflex: 1+ symmetric and absent at the ankles bilaterally. Mute plantar response. Unable to assess coordination or gait. Result Diagrams: 07/07/18 08:24 07/07/18 04:31 Microbiology and Other Data: Microbiology 07/01/18 19:55 Aerobic Blood Culture - Preliminary Blood Venous No Growth Day 1 Anaerobic Blood Culture - Preliminary No Growth Day 1 07/01/18 19:04 Aerobic Blood Culture - Preliminary Blood Venous No Growth Day 1 Anaerobic Blood Culture - Preliminary No Growth Day 1 Assessment/Plan Mr. 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 He has progressed to quadriparesis with proximal proximal upper and lower extremity weakness. It was thought that the patient had developed steroid induced myopathy. Overnight, he continued to deteriorate clinically. He now has severe anemia and thrombocytopenia. Creatinine and BUN are worse and he has significantly reduced urine outpatient. The steroids have been reduced and CellCept discontinued. The patient was intubated due to worsening respiratory function and he will be receiving dialysis. 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 Hypoxic and metabolic encephalopathy 3. Left ptosis with respiratory insufficiency- it would be atypical for him to develop a neuromuscular junction disorder suddenly while on immunosuppressive therapy. The ptosis is chronic, but given his deterioration, it is worth keeping the differential broad 4. Thrombocytopenia and anemia- hematology is following. Recommendations: - EMG to evaluate for irritable (inflammatory myopathy) vs non-irritable myopathy (steroids related myopathy) - Pending acetylcholine receptor and MuSK antibodies. I also sent out antibody against the voltage-gated calcium channel (Lambert Eaton Syndrome) - Agree with reducing the steroids. Less than 10 mg a day is usually not associated with myopathy - Neuro checks every 1 hour - Hold off on doing an LP at this time since his current confusion is most likely related to a metabolic encephalopathy. He should be off Eliquis for 24 hours before attempting an LP. This can be reconsidered if he does not improve. - MRI brain without contrast when medically possible. - continue supportive care Prognosis: guarded but the patient's mortality risk is high due to multiorgan failure. Time spent: 40
[2018-07-07 16:37] LABS: Albumin 1.7 g/dL (3.4-4.7); Albumin/Globulin Ratio 0.94; Gamma Globulin 0.2 g/dL (0.6-1.6); Total Protein(PEP) 3.5 g/dL (6.3 - 7.9)
[2018-07-07] MEDS: Vasopressin* 100 UNITS in D5W 250 ML BAG* 245 ML IVPB SCH (16:46)
[2018-07-07] MEDS ORDERED: Norepinephrine 16MCG/ML IVPRE* 4,000 MCG/250 ML BAG IV SCH ×2 (17:00→20:00)
[2018-07-07] MEDS ORDERED: Meropenem 500MG PREMIX(*) 500 MG/50 ML BAG IV ONE (17:00)
[2018-07-07] MEDS ORDERED: EPOETIN ALFA-EPBX * 10,000 UNIT/ML VIAL IV ONE (17:30)
--- NOTE | 2018-07-07 17:46 | ECHO ---
Patient: LEFTY LANZA [facility] Rec#: [id number] : 1945 Date: 07/07/2018 Age: 72y Height: 180 cm / 70.9 in Weight: 111 kg / 244.6 lbs Sex: M BSA: 2.29 Room#: ICU 4 Admit Date#: 07/01/2018 Type: Inpatient Referring: CLIFTON JENKINS S Reading: Roshni Freitas MD Yeast Washer: Tianna Busch,CHARITOCS,RDMS CC: Tiago Tam MD Transthoracic Echocardiogram Indication: Shock, Hypotension BP: 85/48 HR: 52 Rhythm: NSR Findings History: SOB, HLD, DM Technical Comments: The study quality is fair. The study is technically limited due to patient being intubated and on a ventilator. Left Ventricle: The left ventricular chamber size is mildly dilated. Mild concentric left ventricular hypertrophy is observed. Global left ventricular wall motion and contractility are within normal limits. The estimated ejection fraction is 60-65%. The assessment of diastolic function is non-diagnostic. The patient was unable to perform a Valsalva maneuver. Left Atrium: The left atrium is moderate to severely dilated. Right Ventricle: The right ventricle is mildly dilated. The right ventricular global systolic function is normal. Right Atrium: The right atrium is mildly dilated. Aortic Valve: The aortic valve is trileaflet. The aortic valve leaflets are mildly thickened. There is moderate thickening of the left coronary cusp. There is moderate thickening of the non coronary cusp. There is trace to mild aortic regurgitation. There is no evidence of aortic stenosis. Mitral Valve: The mitral valve leaflets appear normal. There is mild mitral regurgitation. There is no evidence of mitral stenosis. Tricuspid Valve: The tricuspid valve leaflets are normal. There is mild tricuspid regurgitation. The right ventricular systolic pressure is estimated at 37 mmHg. possibly underestimated. There is evidence of mild pulmonary hypertension. Pulmonic Valve: The pulmonic valve appears normal. There is moderate pulmonic regurgitation. Pericardium: There is no significant pericardial effusion. A left pleural effusion is present. Aorta: The aortic root appears normal. The aortic arch is not well visualized. Pulmonary Artery: The main pulmonary artery is not well visualized. Venous: Unable to accurately comment on the size collapsibility of the IVC as the patient in known to be on mechanical ventilation. Conclusions Mild concentric left ventricular hypertrophy is observed. Global left ventricular wall motion and contractility are within normal limits. The estimated ejection fraction is 60-65%. The assessment of diastolic function is non-diagnostic. The right ventricular global systolic function is normal. The left atrium is moderate to severely dilated. The aortic valve is trileaflet and sclerotic. There is trace to mild aortic regurgitation. There is mild mitral regurgitation. There is mild tricuspid regurgitation. There is evidence of mild pulmonary hypertension estimated at 37 mmHg, possibly underestimated. There is moderate pulmonic regurgitation. A left pleural effusion is present. Compared with recent echo of 07/01/18. LVEF is stable, prior RV function was mildly reduced, AI has not increased, WI previously reported as trace (improved image this echo), prior PA pressure was estimated at 46 mmHg. Pleural effusion newly described. Measurements Name Value Normal Range RVIDd (AP) 2D 3.9 cm (0.9 - 2.6) RVDdMajor (2D) 3.5 cm (2.2 - 4.4) RAd ISD 4CH 5.4 cm (3.4 - 4.9) RA (A4C)W 5.4 cm (2.9 - 4.6) IVSd (2D) 1.1 cm (0.6 - 1) LVPWd (2D) 1.1 cm (0.6 - 1) LVIDd (2D) 5.5 cm (3.6 - 5.4) LVIDs (2D) 3.1 cm - LV FS (2D) 43 % (25 - 45) Aortic Annulus 2.3 cm (1.4 - 2.6) Ao root diameter (2D) 3.2 cm (2.1 - 3.5) Ascending Ao 2.6 cm (2.1 - 3.4) LA dimension (AP) 2D 4.1 cm (2.3 - 3.8) LAd ISD 4CH 5.5 cm (2.9 - 5.3) LA ISD 4CH W 6.4 cm (2.5 - 4.5) Name Value Normal Range LA ESV BP (A/L) index 56 ml/m2 - Name Value Normal Range MV E-wave Vmax 1.1 m/sec - MV deceleration time 180 msec - MV A-wave Vmax 0.9 m/sec - MV E:A ratio 1.2 ratio - P. vein S-wave Vmax 0.8 m/sec - P. vein D-wave Vmax 0.4 m/sec - P. vein S:D Vmax ratio 2 ratio - P. vein A-wave duration 84 msec - LV septal e' Vmax 0.1 m/sec - LV lateral e' Vmax 0.1 m/sec - LV E:e' septal ratio 11 ratio - LV E:e' lateral ratio 11 ratio - Name Value Normal Range AV Vmax 1.5 m/sec - AV VTI 30 cm - AV peak gradient 9 mmHg - AV mean gradient 5 mmHg - LVOT Vmax 1.2 m/sec - LVOT VTI 25 cm - LVOT peak gradient 6 mmHg - LVOT mean gradient 3 mmHg - Name Value Normal Range MV Vmax 1.2 m/sec - MV VTI 30 cm - MV peak gradient 6 mmHg - MV mean gradient 4 mmHg - MV PHT 89 msec - MVA (PHT) 2.5 cm2 - Name Value Normal Range TR Vmax 2.7 m/sec - TR peak gradient 29 mmHg - RAP 8 mmHg - RVSP 37 mmHg - Name Value Normal Range PV Vmax 0.9 m/sec - PV peak gradient 3.2 mmHg -
[2018-07-07] MEDS: Norepinephrine 16MCG/ML IVPRE* 4,000 MCG/250 ML BAG IV SCH ×2 (18:14→22:28)
[2018-07-07] MEDS: Norepinephrine VIAL* 8 MG in NS 0.9% 500 ML* 492 ML IV SCH (20:52)
[2018-07-07] MEDS: Chlorhexidine MOUTHWASH 0.12%* 15 ML UDC TOPICAL SCH (23:15)
[2018-07-07 23:36] LABS: Hematocrit 25 % (36-46); Hemoglobin 8.5 g/dL (14.0-18.0)
[2018-07-08] MEDS: Insulin LISPRO* 1 UNITS UNIT SUBCUT SCH ×6 (00:08→19:55)
[2018-07-08] MEDS: Chlorhexidine MOUTHWASH 0.12%* 15 ML UDC TOPICAL SCH ×6 (02:48→22:36)
[2018-07-08] MEDS: Albumin Human 25%* 25 GM/100 ML BTL IV SCH ×4 (02:50→22:35)
[2018-07-08] MEDS: Norepinephrine VIAL* 8 MG in NS 0.9% 500 ML* 492 ML IV SCH ×3 (04:06→21:14)
[2018-07-08] MEDS: Norepinephrine 16MCG/ML IVPRE* 4,000 MCG/250 ML BAG IV SCH ×8 (04:07→21:47)
[2018-07-08 05:00] LABS: ABS Basophils 0 10^3/ul (0-0.2); ABS Eosinophils 0 10^3/ul (0-0.6); ABS Lymphocytes 0.1 10^3/ul (1.0-4.8); ABS Monocytes 0 10^3/ul (0-0.8); ABS Neutrophils 8.6 10^3/ul (1.5-7.7); ABS Nucleated RBC 0 10^3/ul; Eosinophil % 0.2 %; Hematocrit 25 % (36-46); Hemoglobin 8.1 g/dL (14.0-18.0); Lymphocyte % 1.1 %; Mean Corpuscular HGB Conc 33 g/dL (31-36); Mean Corpuscular Hemoglobin 28 pg (27-31); Mean Corpuscular Volume 84 fL (80-94); Mean Platelet Volume 10.8 fL (7.4-10.4); Nucleated Red Blood Cells % 0.3; Platelet Count 33 10^3/uL (150-450); Red Blood Count 2.92 10^6 /uL (4.18-5.48); Red Cell Distribution Width 20 % (10.5-15); White Blood Count 8.7 10^3/uL (3.5-10.8)
[2018-07-08 05:04] LABS: BUN/Creatinine Ratio 25.5 (8-20); Calcium 7.6 mg/dL (8.6-10.3); EGFR African American 23.1 (>60); EGFR Non-African American 19.1 (>60); Magnesium 1.8 mg/dL (1.9-2.7); Potassium 4.3 mmol/L (3.5-5.0)
[2018-07-08] MEDS: Pantoprazole* 80 mg IN NS 80 MG/250 ML BAG IVPB SCH ×3 (06:28→16:55)
--- NOTE | 2018-07-08 08:20 | PN ---
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 Presented to ED on 07/01 with malaise, generalized weakness, right arm pain and shortness of breath. Per patient's this started after steriods were recently increased. On the day of presentation he tripped and fell on a curb, sustaining abrasions to nose. CTs of face and cervical spine negative for fracture. US of right arm negative for DVT. Admitted to hospitalist service with UTI and arm swelling. 07/02: Albumin infusion and furosemide for diuresis. Prednisone dose decreased to 40 QD due to weakness 07/03: continues to feel weak. episodes of hypoglycemia. Furosemide increased to TID. continued on MMF 07/04: Prednisone adjusted to 40mg QAM and 20mg QPM. Albumin infusion @ 4 g/hr 07/05: weaker today, requiring assistance ambulating to bathroom. Albumin increased to 5g/hr. Neurology consult placed. 07/06: Question of bulbar muscle weakness. Now with increased work of breathing. Started on BiPAP and transferred to ICU. Urine culture (+) for enterococcus, on day 08/10 ampicillin 07/07: Developed increased work of breathing and obtundation. Intubated for acute respiratory failure and airway protection. Creatinine worsened and worsening oliguria without response to lasix. HD catheter placed and 4L fluid removed. Seen by hematology for anemia and thrombocytopenia, likely due to MMF +/- ampicillin. 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 Steriod dose decreased, attempting to get ACTH gel so as to switch from steriods. Developed persistent hypotension requiring 2 vasopressors to maintain MAPs (however BPs improved on HD). ABX broadened to Meropenem and ampicillin discontinued. TTE obtained with good EF. Vital Signs: Temp Pulse Resp BP SpO2 FiO2 98.0 F 82 19 90/51 96 50 07/08/18 03:24 07/08/18 07:45 07/08/18 07:00 07/08/18 07:45 07/08/18 07:45 07/08 04:00 Physical Exam: Gen: resting comfortably HEENT: ETT in place Lungs: expiratory rhonci Cardiac: RRR Abdomen: soft, NTND Extremities: warm, dry, edematous Neuro: sedated Fluid Balance (Past 24 Hours): I= O= Net Intake & Output 07/06/18 07/07/18 07/08/18 07/09/18 06:59 06:59 06:59 06:59 Intake Total 5846 219 8074.7 Output Total 1050 430 62 204 Balance 682 751 5275.7 -204 Weight 238 lb 14.4 oz 244 lb 0.827 oz 235 lb 14.314 oz Intake: IV Fluids 60 260 667.5 NS (0.9%) 60 60 388.5 albumin 200 279 IVPB 529 136 325 ABX 60 NS (0.9%) 429 albumin 100 136 265 Medicated IV 1042.2 CC - Norepinephrine/ 677 Levophed GEN - Pantoprazole/ 284 Protonix Vasopressin 81.2 Oral 980 200 0 Tube Feeding Flush Amount 70 Packed Cells 700 Output: NG Tube Drainage Amount 200 Urine 160 Rose 1050 270 62 4 Other: Date of Last Bowel 245878 t Movement # Bowel Movements 2 Estimated Stool Amount Large Medium Labs: Laboratory Results - last 24 hr 07/03/18 07/03/18 07/03/18 19:13 19:13 19:13 WBC RBC Hgb Hct MCV MCH MCHC RDW Plt Count MPV Neut % (Auto) Lymph % (Auto) Cottle % (Auto) Eos % (Auto) Baso % (Auto) Absolute Neuts (auto) Absolute Lymphs (auto) Absolute Monos (auto) Absolute Eos (auto) Absolute Basos (auto) Absolute Nucleated RBC Neutrophils % Lymphocytes % Monocytes % Eosinophils % Nucleated RBC % Abs Neuts (Manual) Abs Lymphs (Manual) Abs Monocytes (Manual) Absolute Eos (Manual) Dohle Bodies Normal RBC Morphology Hoffmeister Cells Elliptocytes Acanthocytes (Spur) Rouleaux Schistocytes Sodium Potassium Chloride Carbon Dioxide Anion Gap BUN Creatinine Est GFR ( Amer) Est GFR (Non-Af Amer) BUN/Creatinine Ratio Glucose POC Glucose (mg/dL) Lactic Acid Calcium Magnesium Total Bilirubin Direct Bilirubin Indirect Bilirubin AST ALT Alkaline Phosphatase Lactate Dehydrogenase Total Protein Total Protein (PEP) Albumin Albumin (PEP) Globulin Albumin/Globulin Ratio Albumin/Globulin (PEP) Oegdu-9-Gkgqkmbvr Hmaai-6-Eedfgmohk Epli-8-Rtndfbuy Gamma Globulins M-Odin M-Odin 2 PEP Impression Cryoglobulin Negative Anti-Nuclear Antibody 0.6 Histone Antibodies <0.5 EBV Early Antigen Parvovirus B19 IgG Ab Negative Parvovirus B19 IgM Ab Negative Parvovirus Interpret See comment Blood Type Antibody Screen Crossmatch 07/03/18 07/05/18 07/07/18 19:13 15:09 04:31 WBC RBC Hgb Hct MCV MCH MCHC RDW Plt Count MPV Neut % (Auto) Lymph % (Auto) Cottle % (Auto) Eos % (Auto) Baso % (Auto) Absolute Neuts (auto) Absolute Lymphs (auto) Absolute Monos (auto) Absolute Eos (auto) Absolute Basos (auto) Absolute Nucleated RBC Neutrophils % Lymphocytes % Monocytes % Eosinophils % Nucleated RBC % Abs Neuts (Manual) Abs Lymphs (Manual) Abs Monocytes (Manual) Absolute Eos (Manual) Dohle Bodies Normal RBC Morphology Darline Cells Elliptocytes Acanthocytes (Spur) Rouleaux Schistocytes Sodium Potassium Chloride Carbon Dioxide Anion Gap BUN Creatinine Est GFR ( Amer) Est GFR (Non-Af Amer) BUN/Creatinine Ratio Glucose POC Glucose (mg/dL) Lactic Acid Calcium Magnesium Total Bilirubin 0.80 Direct Bilirubin 0.30 H Indirect Bilirubin 0.5 AST 26 ALT 14 Alkaline Phosphatase 90 Lactate Dehydrogenase 309 H Total Protein 4.7 L Total Protein (PEP) 3.5 L Albumin 3.0 L Albumin (PEP) 1.7 L Globulin 1.7 L Albumin/Globulin Ratio 1.8 Albumin/Globulin (PEP) 0.94 Qzqxg-0-Dkoceatkm 0.3 Bueut-8-Eigjazciu 0.9 Sbya-7-Mhahbnbh 0.4 L Gamma Globulins 0.2 L M-Odin Not Reportable M-Odin 2 Not Reportable PEP Impression See comment Cryoglobulin Anti-Nuclear Antibody Histone Antibodies EBV Early Antigen Negative Parvovirus B19 IgG Ab Parvovirus B19 IgM Ab Parvovirus Interpret Blood Type Antibody Screen Crossmatch 07/07/18 07/07/18 07/07/18 04:31 08:24 08:24 WBC 6.9 RBC 2.41 L Hgb 6.7 L Hct 20 L MCV 82 MCH 28 MCHC 34 RDW 20 H Plt Count 42 L MPV 10.0 Neut % (Auto) Not Reportable Lymph % (Auto) Not Reportable Cottle % (Auto) Not Reportable Eos % (Auto) Not Reportable Baso % (Auto) Not Reportable Absolute Neuts (auto) Not Reportable Absolute Lymphs (auto) Not Reportable Absolute Monos (auto) Not Reportable Absolute Eos (auto) Not Reportable Absolute Basos (auto) Not Reportable Absolute Nucleated RBC Not Reportable Neutrophils % 94 Lymphocytes % 1 Monocytes % 3 Eosinophils % 2 Nucleated RBC % Not Reportable Abs Neuts (Manual) 6.5 Abs Lymphs (Manual) 0.07 L Abs Monocytes (Manual) 0.2 Absolute Eos (Manual) 0.1 Dohle Bodies Present Normal RBC Morphology Normal Darline Cells 2+ Elliptocytes 2+ Acanthocytes (Spur) 1+ Rouleaux 3+ Schistocytes 1+ Sodium Potassium Chloride Carbon Dioxide Anion Gap BUN Creatinine Est GFR ( Amer) Est GFR (Non-Af Amer) BUN/Creatinine Ratio Glucose 124 H POC Glucose (mg/dL) Lactic Acid Calcium Magnesium Total Bilirubin Direct Bilirubin Indirect Bilirubin AST ALT Alkaline Phosphatase Lactate Dehydrogenase Total Protein Total Protein (PEP) Albumin Albumin (PEP) Globulin Albumin/Globulin Ratio Albumin/Globulin (PEP) Cylpd-7-Unmzeeypg Gaxdz-1-Famvdevdk Titz-1-Qpbijdvx Gamma Globulins M-Odin M-Odin 2 PEP Impression Cryoglobulin Anti-Nuclear Antibody Histone Antibodies EBV Early Antigen Parvovirus B19 IgG Ab Parvovirus B19 IgM Ab Parvovirus Interpret Blood Type A Positive Antibody Screen Negative Crossmatch See Detail 07/07/18 07/07/18 07/07/18 17:13 20:14 23:20 WBC RBC Hgb 8.5 L Hct 25 L MCV MCH MCHC RDW Plt Count MPV Neut % (Auto) Lymph % (Auto) Cottle % (Auto) Eos % (Auto) Baso % (Auto) Absolute Neuts (auto) Absolute Lymphs (auto) Absolute Monos (auto) Absolute Eos (auto) Absolute Basos (auto) Absolute Nucleated RBC Neutrophils % Lymphocytes % Monocytes % Eosinophils % Nucleated RBC % Abs Neuts (Manual) Abs Lymphs (Manual) Abs Monocytes (Manual) Absolute Eos (Manual) Dohle Bodies Normal RBC Morphology Hoffmeister Cells Elliptocytes Acanthocytes (Spur) Rouleaux Schistocytes Sodium Potassium Chloride Carbon Dioxide Anion Gap BUN Creatinine Est GFR ( Amer) Est GFR (Non-Af Amer) BUN/Creatinine Ratio Glucose 134 H POC Glucose (mg/dL) 172 H Lactic Acid Calcium Magnesium Total Bilirubin Direct Bilirubin Indirect Bilirubin AST ALT Alkaline Phosphatase Lactate Dehydrogenase Total Protein Total Protein (PEP) Albumin Albumin (PEP) Globulin Albumin/Globulin Ratio Albumin/Globulin (PEP) Xsmua-1-Ofxblhtok Qaret-3-Gzmabwuql Crga-0-Htcunvry Gamma Globulins M-Odin M-Odin 2 PEP Impression Cryoglobulin Anti-Nuclear Antibody Histone Antibodies EBV Early Antigen Parvovirus B19 IgG Ab Parvovirus B19 IgM Ab Parvovirus Interpret Blood Type Antibody Screen Crossmatch 07/08/18 07/08/18 07/08/18 00:07 04:09 04:30 WBC RBC Hgb Hct MCV MCH MCHC RDW Plt Count MPV Neut % (Auto) Lymph % (Auto) Cottle % (Auto) Eos % (Auto) Baso % (Auto) Absolute Neuts (auto) Absolute Lymphs (auto) Absolute Monos (auto) Absolute Eos (auto) Absolute Basos (auto) Absolute Nucleated RBC Neutrophils % Lymphocytes % Monocytes % Eosinophils % Nucleated RBC % Abs Neuts (Manual) Abs Lymphs (Manual) Abs Monocytes (Manual) Absolute Eos (Manual) Dohle Bodies Normal RBC Morphology Hoffmeister Cells Elliptocytes Acanthocytes (Spur) Rouleaux Schistocytes Sodium 143 Potassium 4.3 Chloride 108 Carbon Dioxide 19 L Anion Gap 16 H BUN 82 H Creatinine 3.21 H Est GFR ( Amer) 23.1 Est GFR (Non-Af Amer) 19.1 BUN/Creatinine Ratio 25.5 H Glucose 86 POC Glucose (mg/dL) 124 H 108 H Lactic Acid Calcium 7.6 L Magnesium 1.8 L Total Bilirubin Direct Bilirubin Indirect Bilirubin AST ALT Alkaline Phosphatase Lactate Dehydrogenase Total Protein Total Protein (PEP) Albumin Albumin (PEP) Globulin Albumin/Globulin Ratio Albumin/Globulin (PEP) Jyafa-6-Cafgbyyuq Htnnr-2-Ychjnrszy Ntkn-7-Sirbicwj Gamma Globulins M-Odin M-Odin 2 PEP Impression Cryoglobulin Anti-Nuclear Antibody Histone Antibodies EBV Early Antigen Parvovirus B19 IgG Ab Parvovirus B19 IgM Ab Parvovirus Interpret Blood Type Antibody Screen Crossmatch 07/08/18 07/08/18 07/08/18 04:30 04:30 07:45 WBC 8.7 RBC 2.92 L Hgb 8.1 L Hct 25 L MCV 84 MCH 28 MCHC 33 RDW 20 H Plt Count 33 L MPV 10.8 H Neut % (Auto) 98.4 Lymph % (Auto) 1.1 Cottle % (Auto) 0.2 Eos % (Auto) 0.2 Baso % (Auto) 0.1 Absolute Neuts (auto) 8.6 H Absolute Lymphs (auto) 0.1 L Absolute Monos (auto) 0 Absolute Eos (auto) 0 Absolute Basos (auto) 0 Absolute Nucleated RBC 0 Neutrophils % Lymphocytes % Monocytes % Eosinophils % Nucleated RBC % 0.3 Abs Neuts (Manual) Abs Lymphs (Manual) Abs Monocytes (Manual) Absolute Eos (Manual) Dohle Bodies Normal RBC Morphology Hoffmeister Cells Elliptocytes Acanthocytes (Spur) Rouleaux Schistocytes Sodium Potassium Chloride Carbon Dioxide Anion Gap BUN Creatinine Est GFR ( Amer) Est GFR (Non-Af Amer) BUN/Creatinine Ratio Glucose POC Glucose (mg/dL) 93 Lactic Acid 3.0 H* Calcium Magnesium Total Bilirubin Direct Bilirubin Indirect Bilirubin AST ALT Alkaline Phosphatase Lactate Dehydrogenase Total Protein Total Protein (PEP) Albumin Albumin (PEP) Globulin Albumin/Globulin Ratio Albumin/Globulin (PEP) Yeayv-7-Aqaapirhh Injga-4-Jyveliznm Eldq-6-Jrjjghhc Gamma Globulins M-Odin M-Odin 2 PEP Impression Cryoglobulin Anti-Nuclear Antibody Histone Antibodies EBV Early Antigen Parvovirus B19 IgG Ab Parvovirus B19 IgM Ab Parvovirus Interpret Blood Type Antibody Screen Crossmatch Studies: 07/08 CXR - bilateral pulmonary edema 07/07 CXR - pulmonary edema 07/07 CT brain - no acute intracranial pathology 07/07 CT CAP - large bilateral pleural effusions with compressive atelectasis. left pelvic kidney. no retroperitoneal hemoatoma. Anasarca. 07/04 CT abd - anasarca, cholelithasis. no visualized neoplasm. 07/01 CXR - small left basilar effusion 07/01 XR R forearm - No fracture 07/01 XR R elbow - no fracture or dislocation 07/01 XR R humerus - no fracture or dislocation 07/01 US duplex RUE - no DVT 06/26 CT maxillofacial - NAD 06/26 CT cspine - NAD 06/26 CT brain - NAD. Age related changes Nutrition: NPO. 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 Now intubated for acute respiratory failure, on HD for fluid removal and vasopressors for shock. Plan: Cardiovascular: (1) Shock; (2) Chronic HTN -- HR 79-97 -- SBP 62-122 -- Telemetry -- Vasopressors Vasopressin @ 0.04 units/min Levophed @ 20 mcg/min -- Apixaban held for thrombocytopenia -- Atorvastatin Home meds: Atorvastatin, candesartan, Apixaban, Lasix Pulmonary: (1) Acute hypoxic respiratory failure secondary to respiratory muscle weakness -- RR 14-32 -- sats 90-98 -- Vent TV 500 PEEP 5 RR 24 FiO2 50 -- CXR: Pulmonary edema -- ABG pending Home meds: None Gastrointestinal: (1) Chronic constipation -- diet: start trickle TF -- bowel regimen: Fleets enema -- ulcer prophylaxis: protonix gtt Home meds: Zofran Endocrine: (1) Diabetes mellitus -- monitor BGs -- Solumedrol, dose decreased. plan to switch to ACTH gel when available -- SSI Home meds: Humulin N, prednisone Renal: (1) FSGN; (2) Nephrotic syndrome; (3) Acute reanl failure; (4) BPH; (5) Chronic hypokalemia; (6) suspected UTI; (7) Hypomagnesemia -- UOP: 3 ml/hr -- I/O:2805 ml in / 4062 ml out. 4L HD -- Cr 3.59 from 2.90 from 2.88 -- Lytes Na 143 from 145 K 4.3 Ca 7.6, replace Mag 1.8, replace -- Albumin @ 5 g/hr -- Lasix 80 mg TID -- Solumedrol and MMF. plan to switch steriod to ACTH gel when available -- Tamsulosin -- Nephrology following Home meds: Tamsulosin, potassium chloride, Lasix, MMF Infectious disease: (1) suspected UTI -- Tmax 99.3 -- WBC 8.7 from 6.9 -- Micro 07/04 Urine negative 07/01 UA negative blood negative -- ABX Meropenem Home meds: None Neurologic: (1) Steriod induced neuropathy; (2) Acute encephalopathy with obtundation; (3) Chronic anxiety -- PRN Oxycodone, switch to IVP Fentanyl as now intubated -- Versed gtt for sedation -- Neurology consulted Home meds: Clonazepam, benadryl Hematological: (1) Anemia; (2) Thrombocytopenia; (3) Coagulopathy -- Hgb 8.1 from 6.7 after 2 U PRBC -- Plt 33 from 42 -- Guiac negative -- DVT prophylaxis: Apixaban held for thrombocytopenia -- Epogen x 1 -- Hematology consulted Home meds: Apixaban Metabolic: (1) Lactic acidosis -- Lactic acid 3.0, follow trend. On albumin for resuscitation and intravascular volume Other: Home meds: Vit B12 Deep vein thrombosis prophylaxis: Apixaban held for thrombocytopenia Dietary: protonix gtt Condition: critical Prognosis: poor Code status: DNR. agreed to a trial of intubation. Disposition: continue ICU Care Cumulative time spent in the care of this patient (excluding any procedure time) : at least 40 minutes. Patient care included clinical interview (with patient and/or family), bedside exam of the patient, review of labs, x-rays, and other ancillary data, coordination of (respiratory, nursing care, review of patient's records, discussion regarding patients management with involved consultants, primary physician, pharmacists, and other healthcare personnel (dietary, case management , physical/occupational therapy etc.) Critical Care Time: 40 min
[2018-07-08] MEDS ORDERED: fentaNYL* 50 MCG/ML 2 ML VIAL (100 MCG VIAL) IV SLOW PU PRN (08:35)
[2018-07-08] MEDS ORDERED: Magnesium Sulfate 1 GM IV* 1 GM/100 ML BAG IV ONE (09:00)
[2018-07-08] MEDS ORDERED: Calcium Gluconate INJ* 1 GM in NS 0.9% 50 ML* 50 ML IVPB ONE (09:00)
[2018-07-08] MEDS: Atorvastatin* 40 MG TAB PO SCH (09:42)
[2018-07-08] MEDS: Tamsulosin CAP* 0.4 MG PO SCH (09:42)
[2018-07-08] MEDS: Sodium Citrate/Citric Acid* 15 ML UDC PO SCH ×3 (09:42→22:36)
[2018-07-08] MEDS: Meropenem 500MG PREMIX(*) 500 MG/50 ML BAG IV SCH (09:44)
[2018-07-08] MEDS: methylPREDNISolone SOD 40 MG* 1 ML VIAL IV SCH (10:46)
--- NOTE | 2018-07-08 15:21 | PN ---
Subjective Date of Service: 07/08/18 Length of Stay: 7 Days Neurology is following for acute encephalopathy. Interval History: He is intubated and is on sedation. According to the primary team, the patient was able to follow some command and move extremities on a sedation window. He is currently sedated with Versed, limited the neurological assessment. Review of Systems: The patient is unable to participate in a review of systems. Family History: Unchanged from Admission Social History: Unchanged from Admission Past Medical History: Unchanged from Admission Objective Active Medications: Atorvastatin Calcium (Lipitor*) 40 mg PO DAILY [facility] Last Admin: 07/08/18 09:42 Dose: 40 mg Chlorhexidine Gluconate (Peridex Mouth Wash 0.12%*) 15 ml TOPICAL Q4H [facility] Last Admin: 07/08/18 09:42 Dose: 15 ml Citric Acid/Sodium Citrate (Bicitra*) 30 ml PO TID [facility] Last Admin: 07/08/18 09:42 Dose: 30 ml Dextrose (D50w Syringe 50 Ml*) 12.5 gm IV PUSH .FOR FS < 60 - SS PRN PRN Reason: FS < 60 Fentanyl Citrate (Fentanyl*) 25 mcg IV SLOW PU Q4H PRN PRN Reason: PAIN Albumin Human (Albumin Human 25%*) 25 gm in 100 mls @ 20 mls/hr IV Q6H [facility] Last Admin: 07/08/18 09:41 Dose: 20 mls/hr Pantoprazole Sodium (Protonix Iv Bag*) 80 mg in 250 mls @ 25 mls/hr IVPB Q10H [facility] Last Admin: 07/08/18 07:36 Dose: 25 mls/hr Midazolam HCl 100 mg/ Sodium (Chloride) 100 mls @ 1 mls/hr IV Q24HR [facility]; Protocol Last Admin: 07/07/18 12:57 Dose: 1 mls/hr Vasopressin 100 units/ (Dextrose) 250 mls @ 6 mls/hr IVPB .(Initial Rate) [facility]; Protocol Last Admin: 07/07/18 16:46 Dose: 6 mls/hr Meropenem (Merrem 500mg Premix(*)) 500 mg in 50 mls @ 100 mls/hr IV Q24H [facility] Last Admin: 07/08/18 09:44 Dose: 100 mls/hr Norepinephrine Bitartrate (Levophed 16 Mcg/Ml Premix Bag*) 4,000 mcg in 250 mls @ 75 mls/hr IV Q3H [facility]; Protocol Last Admin: 07/08/18 10:47 Dose: 75 mls/hr Norepinephrine Bitartrate 8 mg (/ Sodium Chloride) 500 mls @ 75 mls/hr IV Q6H [facility]; Protocol Last Admin: 07/08/18 04:06 Dose: 75 mls/hr Insulin Human Lispro (Humalog*) 0 units SUBCUT Q4H [facility]; Protocol Last Admin: 07/08/18 07:55 Dose: Not Given Methylprednisolone Sodium Succinate (Solu-Medrol 40 Mg) 20 mg IV DAILY [facility] Last Admin: 07/08/18 10:46 Dose: 20 mg Sodium Biphosphate/Sodium Phosphate (Fleet Enema*) 1 bottle LA DAILY PRN PRN Reason: CONSTIPATION Last Admin: 07/06/18 15:00 Dose: 1 bottle Tamsulosin HCl (Flomax Cap*) 0.4 mg PO DAILY [facility] Last Admin: 07/08/18 09:42 Dose: 0.4 mg Vital Signs 07/08/18 07/08/18 07/08/18 10:00 10:15 10:30 Temperature Pulse Rate 87 84 84 Respiratory Rate Blood Pressure 89/51 88/49 94/51 (mmHg) O2 Sat by Pulse 95 96 95 Oximetry 07/08/18 07/08/18 10:45 12:00 Temperature 98.7 F Pulse Rate 85 Respiratory Rate Blood Pressure 107/55 (mmHg) O2 Sat by Pulse 95 Oximetry Intake and Output Last 24 Hours 07/06/18 07/07/18 07/08/18 07/09/18 06:59 06:59 06:59 06:59 Intake Total 4135 520 4927.7 Output Total 1050 430 62 204 Balance 401 031 4551.7 -204 Weight 238 lb 14.4 oz 244 lb 0.827 oz 235 lb 14.314 oz Intake: IV Fluids 60 260 667.5 NS (0.9%) 60 60 388.5 albumin 200 279 IVPB 529 136 325 ABX 60 NS (0.9%) 429 albumin 100 136 265 Medicated IV 1042.2 CC - Norepinephrine/ 677 Levophed GEN - Pantoprazole/ 284 Protonix Vasopressin 81.2 Oral 980 200 0 Tube Feeding Flush Amount 70 Packed Cells 700 Output: NG Tube Drainage Amount 200 Urine 160 Rose 1050 270 62 4 Other: Date of Last Bowel 210208 t Movement # Bowel Movements 2 Estimated Stool Amount Large Medium Oxygen Devices in Use Now: Endotracheal Tube, Mechanical Ventilator Neurology Exam: General: Ill appearing man who is intubated and sedated. Neurological Findings: Mental Status: Patient intubated. On sedation. Patient does not wake to auditory or noxious stimuli. Cranial Nerves: Pupils were equal, round, and reactive with constriction from 3 mm to 2 mm. Oculocephalic reflex intact. Right eye closed with tape. Corneal reflexes intact. Grimace to nasal stimuli was symmetric. Gag weak but present. Motor: Bulk and tone were normal throughout. Patient grimaced to distal stimuli in all four extremities Sensory: Patient does not localize to pain Reflexes: trace throughout. Coordination: Could not be assessed due to mental status. Gait: Could not be assessed due to mental status. Result Diagrams: 07/08/18 04:30 07/08/18 04:30 Microbiology and Other Data: Microbiology 07/01/18 19:55 Aerobic Blood Culture - Preliminary Blood Venous No Growth Day 1 Anaerobic Blood Culture - Preliminary No Growth Day 1 07/01/18 19:04 Aerobic Blood Culture - Preliminary Blood Venous No Growth Day 1 Anaerobic Blood Culture - Preliminary No Growth Day 1 Assessment/Plan Mr. 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 He has progressed to quadriparesis with proximal proximal upper and lower extremity weakness. It was thought that the patient had developed steroid induced myopathy. Overnight, he continued to deteriorate clinically. He now has severe anemia and thrombocytopenia. Creatinine and BUN are worse and he has significantly reduced urine outpatient. The steroids have been reduced and CellCept discontinued. The patient was intubated due to worsening respiratory function and he will be receiving dialysis. 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 Hypoxic and metabolic encephalopathy 3. Left ptosis with respiratory insufficiency- it would be atypical for him to develop a neuromuscular junction disorder suddenly while on CellCept and Steroids. Please note the patient also has bilateral large pleural effusions and pulmonary edema that are the major contributors to his respiratory insufficiency. 4. Thrombocytopenia and anemia- hematology is following. Recommendations: - Hold off on the EMG due to thrombocytopenia and the test requires some participation. - Pending acetylcholine receptor and MuSK antibodies. I also sent out antibody against the voltage-gated calcium channel (Lambert Eaton Syndrome). I contacted [place] and the results will be ready tomorrow, or no later than this upcoming weekend. - Neuro checks every 1 hour - No need for an LP to evaluate for his encephalopathy as it's most likely explained but his encephalopathy. - MRI brain without contrast when medically possible. - continue supportive care Prognosis: guarded
[2018-07-08] MEDS: Midazolam IV for DRIP* 100 MG in NS 0.9% 100 ML* 80 ML IV SCH (16:57)
--- NOTE | 2018-07-08 17:40 | OP ---
Operative Report - Blank - Operative Report Date of Operation: 07/08/18 Note: PROCEDURE NOTE Procedure: Thoracentesis, right hemithorax Consent obtained: Verbal, from Time out performed: Yes Indications: right pleural effusion with compressive atelectasis Anesthesia: Local infiltration Local anesthetic: 1% Lidocaine 5 ml Preparation: Chlorhexadine swab Skin prep agen dried: skin prep agent dried prior to procedure Sterile barrier: yes Hand hygiene: Hand hygiene performed Pre-procedure: landmarks identified using ultrasound Ultrasound guidance: Yes Sterile ultrasound technique: Sterile gel and sterile probe covers were used Number of attempts: 1 Findings: 10 ml of clear serous fluid obtained Complications: None Description of procedure: The patient was prepped and draped in sterile fashion. The ultrasound was used to identify a fluid collection in the right lower hemithorax at approximately the 4-5 rib space posteriorly. 5 ml of 1% lidocaine was then infused in a local field block. A small sabiha was made in the skin in this position using an 11 blade scalpel. The needle with angiocath overlying (from the thoracentesis kit) was then advanced until serous fluid was obtained. The catheter was then advanced while holding the needle in place. The needle was removed and the catheter connected to Pleura-Vac. No further fluid was obtained. Culture sent. The catheter was sutured into place to allow for further drainage overnight. The patient tolerated the procedure well without immediate complication
--- NOTE | 2018-07-08 17:41 | OP ---
Operative Report - Blank - Operative Report Date of Operation: 07/08/18 Note: PROCEDURE NOTE Procedure: Thoracentesis, left hemithorax Consent obtained: Verbal, from Time out performed: Yes Indications: left pleural effusion with compressive atelectasis Anesthesia: Local infiltration Local anesthetic: 1% Lidocaine 5 ml Preparation: Chlorhexadine swab Skin prep agen dried: skin prep agent dried prior to procedure Sterile barrier: yes Hand hygiene: Hand hygiene performed Pre-procedure: landmarks identified using ultrasound Ultrasound guidance: Yes Sterile ultrasound technique: Sterile gel and sterile probe covers were used Number of attempts: 1 Findings: 500 ml of serosanguinous fluid obtained Complications: None Description of procedure: The patient was prepped and draped in sterile fashion. The ultrasound was used to identify a fluid collection in the left lower hemithorax at approximately the 4-5 rib space posteriorly. 5 ml of 1% lidocaine was then infused in a local field block. A small sabiha was made in the skin in this position using an 11 blade scalpel. The needle with angiocath overlying (from the thoracentesis kit) was then advanced until serous fluid was obtained. The catheter was then advanced while holding the needle in place. The needle was removed and the catheter connected to Pleura-Vac. 500ml of further fluid was obtained. Culture sent. The catheter was sutured into place to allow for further drainage overnight. The patient tolerated the procedure well without immediate complication
[2018-07-08] MEDS: Vasopressin* 100 UNITS in D5W 250 ML BAG* 245 ML IVPB SCH (19:55)
[2018-07-08] MEDS ORDERED: Phenylephrine 10 MG/ML VIAL* 1 ML VIAL ONE (20:50)
[2018-07-08] MEDS: Phenylephrine 10 MG/ML VIAL* 50 MG in NS 0.9% 250 ML* 245 ML IV SCH (21:03)
--- NOTE | 2018-07-08 23:48 | PN ---
Progress Note - Progress Note Date of Service: 07/08/18 Note: Patient maxed on [address] Gillis, Will give Albumin 25 gm x 1. RN to call to discuss patient more critical this evening.
[2018-07-09] MEDS: Insulin LISPRO* 1 UNITS UNIT SUBCUT SCH ×7 (00:28→23:28)
[2018-07-09] MEDS ORDERED: Albumin Human 25%* 25 GM/100 ML BTL IV ONE (01:00)
[2018-07-09] MEDS: Chlorhexidine MOUTHWASH 0.12%* 15 ML UDC TOPICAL SCH ×6 (02:03→20:31)
[2018-07-09] MEDS: Norepinephrine 16MCG/ML IVPRE* 4,000 MCG/250 ML BAG IV SCH ×6 (04:06→22:15)
[2018-07-09] MEDS: Norepinephrine VIAL* 8 MG in NS 0.9% 500 ML* 492 ML IV SCH ×4 (04:22→22:16)
[2018-07-09] MEDS: Pantoprazole* 80 mg IN NS 80 MG/250 ML BAG IVPB SCH ×2 (04:22→11:42)
[2018-07-09] MEDS: Albumin Human 25%* 25 GM/100 ML BTL IV SCH ×4 (04:27→20:37)
[2018-07-09] MEDS: Phenylephrine 10 MG/ML VIAL* 50 MG in NS 0.9% 250 ML* 245 ML IV SCH ×5 (05:02→23:14)
[2018-07-09 05:33] LABS: Hematocrit 23 % (36-46); Hemoglobin 7.5 g/dL (14.0-18.0); Mean Corpuscular HGB Conc 33 g/dL (31-36); Mean Corpuscular Hemoglobin 28 pg (27-31); Mean Corpuscular Volume 85 fL (80-94); Mean Platelet Volume 9.7 fL (7.4-10.4); Platelet Count 17 10^3/uL (150-450); Red Blood Count 2.71 10^6 /uL (4.18-5.48); Red Cell Distribution Width 21 % (10.5-15); White Blood Count 9.5 10^3/uL (3.5-10.8)
[2018-07-09 05:36] LABS: Activated Partial Thrombo Time 51.6 seconds (26.0-36.3); INR 1.39 (0.77-1.02)
[2018-07-09 05:43] LABS: Albumin 3.5 g/dL (3.2-5.2); Albumin/Globulin Ratio 2.5 (1-3); BUN/Creatinine Ratio 25.4 (8-20); Calcium 7.3 mg/dL (8.6-10.3); EGFR African American 19.8 (>60); EGFR Non-African American 16.4 (>60); Globulin 1.4 g/dL (2-4); Magnesium 1.9 mg/dL (1.9-2.7); Phosphorus 7.4 mg/dL (2.5-5.0); Potassium 4.7 mmol/L (3.5-5.0); Total Bilirubin 1.5 mg/dL (0.2-1.0); Total Protein 4.9 g/dL (6.4-8.9)
[2018-07-09] MEDS: Meropenem 500MG PREMIX(*) 500 MG/50 ML BAG IV SCH (08:43)
--- NOTE | 2018-07-09 09:00 | PN ---
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 Presented to ED on 07/01 with malaise, generalized weakness, right arm pain and shortness of breath. Per patient's this started after steriods were recently increased. On the day of presentation he tripped and fell on a curb, sustaining abrasions to nose. CTs of face and cervical spine negative for fracture. US of right arm negative for DVT. Admitted to hospitalist service with UTI and arm swelling. 07/02: Albumin infusion and furosemide for diuresis. Prednisone dose decreased to 40 QD due to weakness 07/03: continues to feel weak. episodes of hypoglycemia. Furosemide increased to TID. continued on MMF 07/04: Prednisone adjusted to 40mg QAM and 20mg QPM. Albumin infusion @ 4 g/hr 07/05: weaker today, requiring assistance ambulating to bathroom. Albumin increased to 5g/hr. Neurology consult placed. 07/06: Question of bulbar muscle weakness. Now with increased work of breathing. Started on BiPAP and transferred to ICU. Urine culture (+) for enterococcus, on day 08/10 ampicillin 07/07: Developed increased work of breathing and obtundation. Intubated for acute respiratory failure and airway protection. Creatinine worsened and worsening oliguria without response to lasix. HD catheter placed and 4L fluid removed. Seen by hematology for anemia and thrombocytopenia, likely due to MMF +/- ampicillin. 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 Steriod dose decreased, attempting to get ACTH gel so as to switch from steriods. Developed persistent hypotension requiring 2 vasopressors to maintain MAPs (however BPs improved on HD). ABX broadened to Meropenem and ampicillin discontinued. TTE obtained with good EF. 07/08: Bilateral pleural pigtail catheters placed for drainage of pleural effusions to assist weaning from vent and at request of Nephrology. Overnight developed worsened hypotension despite max doses of Vasopressin and Levophed. Neosynephrine added (given good EF on TTE) and additional albumin bolused. Stool noted to be watery and CDiff sent. Development of hypotension at several hours remove from placement of chest tubes so correlation is possible but suspected. Vital Signs: Temp Pulse Resp BP SpO2 FiO2 96.9 F 79 20 98/64 96 50 07/09/18 03:58 07/09/18 06:30 07/09/18 05:49 07/09/18 06:30 07/09/18 06:30 07/09 08:03 Physical Exam: Gen: resting in bed HEENT: ETT In place Lungs: coarse bilaterally Cardiac: RRR Abdomen: soft, NTND Extremities: warm, dry, pitting edema and anasarca present Neuro: sedated Fluid Balance (Past 24 Hours): I= O= Net Intake & Output 07/07/18 07/08/18 07/09/18 07/10/18 06:59 06:59 06:59 06:59 Intake Total 596 2804.7 1794.1 2329.7 Output Total 430 62 422 Balance 166 2742.7 1372.1 2329.7 Weight 244 lb 0.827 oz 235 lb 14.314 oz Intake: IV Fluids 260 667.5 250 45.6 NS (0.9%) 60 388.5 107 45.6 albumin 200 279 143 IVPB 136 325 244 347 ABX 60 NS (0.9%) 244 albumin 136 265 347 Medicated IV 1042.2 1250.1 1937.1 CC - Norepinephrine/ 677 879 949 Levophed GEN - Pantoprazole/ 284 299 318 Protonix Neosynephrine 593 Vasopressin 81.2 72.1 77.1 Oral 200 0 0 Tube Feeding Flush Amount 70 50 Packed Cells 700 Output: NG Tube Drainage Amount 400 Urine 160 Rose 270 62 22 Other: Date of Last Bowel t Movement Estimated Stool Amount Medium Labs: Laboratory Results - last 24 hr 07/07/18 07/07/18 07/08/18 04:31 08:24 12:55 WBC RBC Hgb Hct MCV MCH MCHC RDW Plt Count MPV Haptoglobin 320 H Hem Pathologist Commnt INR (Anticoag Therapy) APTT Patient Temperature ABG pH ABG pH (Temp Correct) ABG pCO2 ABG pCO2 (Temp Corrct ABG pO2 ABG pO2 (Temp Correct ABG HCO3 ABG O2 Saturation ABG Base Excess Respiration Rate O2 Delivery Device Ventilator Type Vent Mode FiO2 Inspiratory Time PEEP Pressure Support Pressure Control EPAP IPAP BiPAP Sodium Potassium Chloride Carbon Dioxide Anion Gap BUN Creatinine Est GFR ( Amer) Est GFR (Non-Af Amer) BUN/Creatinine Ratio Glucose POC Glucose (mg/dL) 113 H Lactic Acid Calcium Ionized Calcium Phosphorus Magnesium Total Bilirubin AST ALT Alkaline Phosphatase Total Protein Albumin Globulin Albumin/Globulin Ratio 07/08/18 07/08/18 07/08/18 14:00 16:00 16:51 WBC RBC Hgb Hct MCV MCH MCHC RDW Plt Count MPV Haptoglobin Hem Pathologist Commnt INR (Anticoag Therapy) APTT Patient Temperature Not Reportable ABG pH 7.26 L ABG pH (Temp Correct) Not Reportable ABG pCO2 36 ABG pCO2 (Temp Corrct Not Reportable ABG pO2 112 H ABG pO2 (Temp Correct Not Reportable ABG HCO3 17.1 L ABG O2 Saturation 99.6 H ABG Base Excess -10.0 L Respiration Rate 14 O2 Delivery Device vent Ventilator Type 500 Vent Mode Cmv FiO2 50 Inspiratory Time 0.9 PEEP 5 Pressure Support Not Reportable Pressure Control Not Reportable EPAP Not Reportable IPAP Not Reportable BiPAP Not Reportable Sodium Potassium Chloride Carbon Dioxide Anion Gap BUN Creatinine Est GFR ( Amer) Est GFR (Non-Af Amer) BUN/Creatinine Ratio Glucose POC Glucose (mg/dL) 120 H Lactic Acid 2.3 H* Calcium Ionized Calcium Phosphorus Magnesium Total Bilirubin AST ALT Alkaline Phosphatase Total Protein Albumin Globulin Albumin/Globulin Ratio 07/08/18 07/09/18 07/09/18 19:53 00:19 04:05 WBC RBC Hgb Hct MCV MCH MCHC RDW Plt Count MPV Haptoglobin Hem Pathologist Commnt INR (Anticoag Therapy) APTT Patient Temperature ABG pH ABG pH (Temp Correct) ABG pCO2 ABG pCO2 (Temp Corrct ABG pO2 ABG pO2 (Temp Correct ABG HCO3 ABG O2 Saturation ABG Base Excess Respiration Rate O2 Delivery Device Ventilator Type Vent Mode FiO2 Inspiratory Time PEEP Pressure Support Pressure Control EPAP IPAP BiPAP Sodium Potassium Chloride Carbon Dioxide Anion Gap BUN Creatinine Est GFR ( Amer) Est GFR (Non-Af Amer) BUN/Creatinine Ratio Glucose POC Glucose (mg/dL) 127 H 151 H 153 H Lactic Acid Calcium Ionized Calcium Phosphorus Magnesium Total Bilirubin AST ALT Alkaline Phosphatase Total Protein Albumin Globulin Albumin/Globulin Ratio 07/09/18 07/09/18 07/09/18 05:00 05:00 05:00 WBC 9.5 RBC 2.71 L Hgb 7.5 L Hct 23 L MCV 85 MCH 28 MCHC 33 RDW 21 H Plt Count 17 L* MPV 9.7 Haptoglobin Hem Pathologist Commnt INR (Anticoag Therapy) 1.39 H APTT 51.6 H Patient Temperature ABG pH ABG pH (Temp Correct) ABG pCO2 ABG pCO2 (Temp Corrct ABG pO2 ABG pO2 (Temp Correct ABG HCO3 ABG O2 Saturation ABG Base Excess Respiration Rate O2 Delivery Device Ventilator Type Vent Mode FiO2 Inspiratory Time PEEP Pressure Support Pressure Control EPAP IPAP BiPAP Sodium 144 Potassium 4.7 Chloride 109 Carbon Dioxide 17 L Anion Gap 18 H BUN 93 H Creatinine 3.66 H Est GFR ( Amer) 19.8 Est GFR (Non-Af Amer) 16.4 BUN/Creatinine Ratio 25.4 H Glucose 124 H POC Glucose (mg/dL) Lactic Acid Calcium 7.3 L Ionized Calcium Phosphorus 7.4 H Magnesium 1.9 Total Bilirubin 1.50 H AST 30 ALT 16 Alkaline Phosphatase 108 H Total Protein 4.9 L Albumin 3.5 Globulin 1.4 L Albumin/Globulin Ratio 2.5 07/09/18 05:25 WBC RBC Hgb Hct MCV MCH MCHC RDW Plt Count MPV Haptoglobin Hem Pathologist Commnt INR (Anticoag Therapy) APTT Patient Temperature ABG pH ABG pH (Temp Correct) ABG pCO2 ABG pCO2 (Temp Corrct ABG pO2 ABG pO2 (Temp Correct ABG HCO3 ABG O2 Saturation ABG Base Excess Respiration Rate O2 Delivery Device Ventilator Type Vent Mode FiO2 Inspiratory Time PEEP Pressure Support Pressure Control EPAP IPAP BiPAP Sodium Potassium Chloride Carbon Dioxide Anion Gap BUN Creatinine Est GFR ( Amer) Est GFR (Non-Af Amer) BUN/Creatinine Ratio Glucose POC Glucose (mg/dL) Lactic Acid Calcium Ionized Calcium 0.95 L Phosphorus Magnesium Total Bilirubin AST ALT Alkaline Phosphatase Total Protein Albumin Globulin Albumin/Globulin Ratio Studies: 07/08 CXR - bilateral pulmonary edema 07/07 CXR - pulmonary edema 07/07 CT brain - no acute intracranial pathology 07/07 CT CAP - large bilateral pleural effusions with compressive atelectasis. left pelvic kidney. no retroperitoneal hemoatoma. Anasarca. 07/04 CT abd - anasarca, cholelithasis. no visualized neoplasm. 07/01 CXR - small left basilar effusion 07/01 XR R forearm - No fracture 07/01 XR R elbow - no fracture or dislocation 07/01 XR R humerus - no fracture or dislocation 07/01 US duplex RUE - no DVT 06/26 CT maxillofacial - NAD 06/26 CT cspine - NAD 06/26 CT brain - NAD. 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 Now intubated for acute respiratory failure, on HD for fluid removal and vasopressors for shock. Plan: Cardiovascular: (1) Shock; (2) Chronic HTN -- HR 79-95 -- SBP 74-103 -- Telemetry -- Vasopressors Vasopressin @ 0.04 units/min Levophed @ 20 mcg/min Neosynephrine @ 200 mcg/min -- Apixaban discontinued due to severe thrombocytopenia -- Atorvastatin Home meds: Atorvastatin, candesartan, Apixaban, Lasix Pulmonary: (1) Acute hypoxic respiratory failure secondary to respiratory muscle weakness; (2) Bilateral pleural effusions secondary to hypoproteinemia -- RR 15-31 -- sats 93-96 -- Vent TV 500 PEEP 5 RR 24 FiO2 50 -- CXR: pending -- bilateral chest tubes placed yesterday Home meds: None Gastrointestinal: (1) Chronic constipation; (2) Hyperbilirubinemia and elevated ALK -- LFTs Tbili 1.5 ALK 108 AST 30 ALT 16 -- obtain US GB to rule out acalculous cholecystitis -- diet: start trickle TF -- bowel regimen: Fleets enema -- ulcer prophylaxis: protonix gtt Home meds: Zofran Endocrine: (1) Diabetes mellitus; (2) Steriod induced myopathy -- monitor BGs -- Solumedrol, dose decreased. plan to switch to ACTH gel when available -- SSI -- Hydrocortisone for empiric coverage of possible adrenal insuffiency as cause for persistent shock state without other identified source to date. Discussed with Neurology. The risk of further worsening steriod myopathy is less than the risk of ongoing shock at this point. Home meds: Humulin N, prednisone Renal: (1) FSGN; (2) Nephrotic syndrome; (3) Acute reanl failure; (4) BPH; (5) Chronic hypokalemia -- UOP: 3 ml/hr -- I/O:1794 ml in / 422 ml out. 4L HD -- Cr 3.59 from 2.90 from 2.88 -- Lytes Na 144 from 143 K 4.7 Ca 7.3, replace Mag 1.9 -- Albumin 25g QID -- plan to switch steriod to ACTH gel when available -- Tamsulosin -- Nephrology following Home meds: Tamsulosin, potassium chloride, Lasix, MMF Infectious disease: (1) Concern for sepsis, source undetermined to date -- Tmax 99.2 -- WBC 9.5 form 8.7 -- Micro 4/4 L pleural in progress R pleural in progres sputum in progress 07/07 Blood NGTD Urine negative 07/04 Urine negative 07/01 UA negative blood negative -- ABX Meropenem vanco Home meds: None Neurologic: (1) Steriod induced neuropathy; (2) Acute encephalopathy with obtundation; (3) Chronic anxiety -- PRN Fentanyl for pain control -- Versed gtt for sedation -- Neurology consulted Home meds: Clonazepam, benadryl Hematological: (1) Anemia; (2) Thrombocytopenia; (3) Coagulopathy -- Hgb 7.5 from 8.1 -- Plt 17 from 33 -- Coags INR 1.39 APTT 51.6 -- Guiac negative -- DVT prophylaxis: unable to use chemoprophylaxis secondary to servere thrombocytopenia. unable to use SCDs due to extensive tissue edema and concern for development of wounds -- Epogen x 1 -- Hematology consulted Home meds: Apixaban Metabolic: (1) Lactic acidosis -- Lactic acid 2.3 from 3.0, follow trend. On albumin for resuscitation and intravascular volume Other: Home meds: Vit B12 Deep vein thrombosis prophylaxis: unable to use chemoprophylaxis secondary to servere thrombocytopenia. unable to use SCDs due to extensive tissue edema and concern for development of wounds Dietary: protonix gtt Condition: critical Prognosis: poor Code status: DNR. agreed to a trial of intubation. Disposition: continue ICU Care Cumulative time spent in the care of this patient (excluding any procedure time) : at least 40 minutes. Patient care included clinical interview (with patient and/or family), bedside exam of the patient, review of labs, x-rays, and other ancillary data, coordination of (respiratory, nursing care, review of patient's records, discussion regarding patients management with involved consultants, primary physician, pharmacists, and other healthcare personnel (dietary, case management , physical/occupational therapy etc.)
[2018-07-09] MEDS ORDERED: Calcium Gluconate INJ* 1 GM in NS 0.9% 50 ML* 50 ML IVPB ONE (09:30)
[2018-07-09] MEDS: Sodium Citrate/Citric Acid* 15 ML UDC PO SCH ×3 (09:53→20:31)
[2018-07-09] MEDS: Atorvastatin* 40 MG TAB PO SCH (09:53)
[2018-07-09] MEDS: Tamsulosin CAP* 0.4 MG PO SCH (09:53)
[2018-07-09] MEDS: Midazolam IV for DRIP* 100 MG in NS 0.9% 100 ML* 80 ML IV SCH (09:54)
[2018-07-09] MEDS: Hydrocortisone INJ* 100 MG VIAL IV SCH ×2 (09:54→17:03)
[2018-07-09] MEDS: Vasopressin* 100 UNITS in D5W 250 ML BAG* 245 ML IVPB SCH (09:55)
[2018-07-09] MEDS ORDERED: Vancomycin per Pharmacy* NOTE FOLLOW UP SCH (10:00)
[2018-07-09] MEDS ORDERED: Vancomycin(*) 1,500 MG in NS 0.9% 250 ML* 250 ML IVPB ONE (10:00)
[2018-07-09 10:09] LABS: Hepatitis B Surface AB Not Immune (Immune)
[2018-07-09] MEDS ORDERED: EPOETIN ALFA-EPBX * 10,000 UNIT/ML VIAL IV ONE (14:15)
--- NOTE | 2018-07-09 16:14 | PN ---
Subjective Date of Service: 07/09/18 Length of Stay: 8 Days Neurology is following for generalized weakness and unresponsive state. Interval History: He was examined off sedation today (3 hours after the versed gtt was discontinued). He was unresponsive. He is on pressors. Bilateral chest tubes were placed overnight for pleural effusion. Labs today: Plt count: 17 Negative AChR Muscle binding Ab Review of Systems: He does not participate with a ROS. Family History: Unchanged from Admission Social History: Unchanged from Admission Past Medical History: Unchanged from Admission Objective Active Medications: Atorvastatin Calcium (Lipitor*) 40 mg PO DAILY [facility] Last Admin: 07/09/18 09:53 Dose: 40 mg Chlorhexidine Gluconate (Peridex Mouth Wash 0.12%*) 15 ml TOPICAL Q4H [facility] Last Admin: 07/09/18 15:38 Dose: 15 ml Citric Acid/Sodium Citrate (Bicitra*) 30 ml PO TID [facility] Last Admin: 07/09/18 15:38 Dose: 30 ml Dextrose (D50w Syringe 50 Ml*) 12.5 gm IV PUSH .FOR FS < 60 - SS PRN PRN Reason: FS < 60 Fentanyl Citrate (Fentanyl*) 25 mcg IV SLOW PU Q4H PRN PRN Reason: PAIN Hydrocortisone Sodium Succinate (Solu-Cortef*) 100 mg IV Q8H [facility] Last Admin: 07/09/18 09:54 Dose: 100 mg Albumin Human (Albumin Human 25%*) 25 gm in 100 mls @ 20 mls/hr IV Q6H [facility] Last Admin: 07/09/18 15:39 Dose: 20 mls/hr Pantoprazole Sodium (Protonix Iv Bag*) 80 mg in 250 mls @ 25 mls/hr IVPB Q10H [facility] Last Admin: 07/09/18 11:42 Dose: Not Given Midazolam HCl 100 mg/ Sodium (Chloride) 100 mls @ 1 mls/hr IV Q24HR [facility]; Protocol Last Admin: 07/09/18 09:54 Dose: Not Given Vasopressin 100 units/ (Dextrose) 250 mls @ 6 mls/hr IVPB .(Initial Rate) [facility]; Protocol Last Admin: 07/09/18 09:55 Dose: 6 mls/hr Meropenem (Merrem 500mg Premix(*)) 500 mg in 50 mls @ 100 mls/hr IV Q24H [facility] Last Admin: 07/09/18 08:43 Dose: 100 mls/hr Norepinephrine Bitartrate (Levophed 16 Mcg/Ml Premix Bag*) 4,000 mcg in 250 mls @ 75 mls/hr IV Q3H [facility]; Protocol Last Admin: 07/09/18 15:38 Dose: Not Given Norepinephrine Bitartrate 8 mg (/ Sodium Chloride) 500 mls @ 75 mls/hr IV Q6H [facility]; Protocol Last Admin: 07/09/18 15:39 Dose: Not Given Phenylephrine HCl 50 mg/ (Sodium Chloride) 250 mls @ 60 mls/hr IV Q4H [facility]; Protocol Last Admin: 07/09/18 13:30 Dose: 60 mls/hr Insulin Human Lispro (Humalog*) 0 units SUBCUT Q4H [facility]; Protocol Last Admin: 07/09/18 13:29 Dose: 4 units Pharmacy Consult (Vancomycin Per Pharmacy*) 1 note FOLLOW UP .VANC PER PHARMACY [facility] Pharmacy Consult (Vancomycin Random Level*) 1 note FOLLOW UP ONCE ONE Stop: 07/10/18 06:01 Sodium Biphosphate/Sodium Phosphate (Fleet Enema*) 1 bottle [place] DAILY PRN PRN Reason: CONSTIPATION Last Admin: 07/06/18 15:00 Dose: 1 bottle Tamsulosin HCl (Flomax Cap*) 0.4 mg PO DAILY [facility] Last Admin: 07/09/18 09:53 Dose: 0.4 mg Vital Signs 07/08/18 07/08/18 07/08/18 16:15 16:30 16:45 Temperature Pulse Rate 90 93 92 Respiratory Rate Blood Pressure 94/53 98/56 98/59 (mmHg) O2 Sat by Pulse 93 93 94 Oximetry 07/08/18 07/08/18 07/08/18 16:57 17:00 17:15 Temperature Pulse Rate 90 90 Respiratory 21 21 Rate Blood Pressure 88/49 91/50 (mmHg) O2 Sat by Pulse 94 94 Oximetry 07/08/18 07/08/18 07/08/18 17:30 17:35 17:45 Temperature Pulse Rate 88 90 89 Respiratory Rate Blood Pressure 86/48 96/54 92/52 (mmHg) O2 Sat by Pulse 94 94 94 Oximetry 07/08/18 07/08/18 07/08/18 18:00 18:15 18:30 Temperature Pulse Rate 87 91 89 Respiratory 24 Rate Blood Pressure 87/53 92/56 86/51 (mmHg) O2 Sat by Pulse 94 94 94 Oximetry 07/08/18 07/08/18 07/08/18 18:45 19:00 19:15 Temperature Pulse Rate 89 88 92 Respiratory 20 Rate Blood Pressure 84/53 92/54 87/51 (mmHg) O2 Sat by Pulse 95 94 95 Oximetry 07/08/18 07/08/18 07/08/18 19:30 19:33 19:45 Temperature 98.3 F Pulse Rate 87 87 Respiratory Rate Blood Pressure 83/53 85/52 (mmHg) O2 Sat by Pulse 94 94 Oximetry 07/08/18 07/08/18 07/08/18 20:00 20:15 20:28 Temperature Pulse Rate 89 87 89 Respiratory 20 Rate Blood Pressure 85/51 82/49 72/41 (mmHg) O2 Sat by Pulse 95 95 96 Oximetry 07/08/18 07/08/18 07/08/18 20:30 20:37 20:41 Temperature Pulse Rate 87 87 87 Respiratory Rate Blood Pressure 74/42 74/44 75/46 (mmHg) O2 Sat by Pulse 96 95 94 Oximetry 07/08/18 07/08/18 07/08/18 20:45 21:00 21:15 Temperature Pulse Rate 87 86 85 Respiratory 15 Rate Blood Pressure 78/46 80/48 83/49 (mmHg) O2 Sat by Pulse 95 95 95 Oximetry 07/08/18 07/08/18 07/08/18 21:30 21:45 21:49 Temperature Pulse Rate 86 84 85 Respiratory Rate Blood Pressure 85/52 83/54 84/50 (mmHg) O2 Sat by Pulse 95 95 96 Oximetry 07/08/18 07/08/18 07/08/18 22:00 22:15 22:31 Temperature Pulse Rate 85 86 84 Respiratory 17 Rate Blood Pressure 89/54 86/53 83/49 (mmHg) O2 Sat by Pulse 95 95 96 Oximetry 07/08/18 07/08/18 07/08/18 22:45 23:00 23:15 Temperature Pulse Rate 86 85 86 Respiratory 21 Rate Blood Pressure 83/52 82/52 84/49 (mmHg) O2 Sat by Pulse 96 95 95 Oximetry 07/08/18 07/08/18 07/08/18 23:30 23:31 23:45 Temperature 97.8 F Pulse Rate 88 89 Respiratory Rate Blood Pressure 87/55 91/51 (mmHg) O2 Sat by Pulse 95 95 Oximetry 07/09/18 07/09/18 07/09/18 00:00 00:15 00:30 Temperature Pulse Rate 90 91 91 Respiratory 23 Rate Blood Pressure 92/55 94/53 93/54 (mmHg) O2 Sat by Pulse 95 95 95 Oximetry 07/09/18 07/09/18 07/09/18 00:45 01:00 01:15 Temperature Pulse Rate 90 90 90 Respiratory 24 Rate Blood Pressure 93/53 95/54 92/56 (mmHg) O2 Sat by Pulse 95 95 95 Oximetry 07/09/18 07/09/18 07/09/18 01:30 01:45 02:00 Temperature Pulse Rate 90 88 87 Respiratory 21 Rate Blood Pressure 97/58 88/54 89/56 (mmHg) O2 Sat by Pulse 95 95 95 Oximetry 07/09/18 07/09/18 07/09/18 02:15 02:30 02:45 Temperature Pulse Rate 87 86 82 Respiratory Rate Blood Pressure 96/61 92/61 99/73 (mmHg) O2 Sat by Pulse 96 96 99 Oximetry 07/09/18 07/09/18 07/09/18 03:00 03:15 03:30 Temperature Pulse Rate 86 85 81 Respiratory 27 Rate Blood Pressure 92/58 93/56 94/58 (mmHg) O2 Sat by Pulse 95 95 95 Oximetry 07/09/18 07/09/18 07/09/18 03:58 04:00 04:15 Temperature 96.9 F Pulse Rate 83 82 Respiratory 22 Rate Blood Pressure 94/59 94/56 (mmHg) O2 Sat by Pulse 94 95 Oximetry 07/09/18 07/09/18 07/09/18 04:30 04:45 05:00 Temperature Pulse Rate 82 85 84 Respiratory 25 Rate Blood Pressure 92/56 100/63 98/62 (mmHg) O2 Sat by Pulse 96 95 95 Oximetry 07/09/18 07/09/18 07/09/18 05:15 05:30 05:45 Temperature Pulse Rate 86 85 81 Respiratory Rate Blood Pressure 98/65 103/62 96/63 (mmHg) O2 Sat by Pulse 96 96 96 Oximetry 07/09/18 07/09/18 07/09/18 05:49 06:00 06:15 Temperature Pulse Rate 80 79 Respiratory 20 Rate Blood Pressure 95/60 94/58 (mmHg) O2 Sat by Pulse 96 96 Oximetry 07/09/18 07/09/18 07/09/18 06:30 06:45 07:00 Temperature Pulse Rate 79 79 80 Respiratory 20 Rate Blood Pressure 98/64 98/58 106/70 (mmHg) O2 Sat by Pulse 96 96 93 Oximetry 07/09/18 07/09/18 07/09/18 07:15 07:30 07:45 Temperature Pulse Rate 78 78 81 Respiratory Rate Blood Pressure 94/59 97/63 106/68 (mmHg) O2 Sat by Pulse 95 95 95 Oximetry 07/09/18 07/09/18 07/09/18 08:00 08:15 08:30 Temperature Pulse Rate 82 81 77 Respiratory 20 Rate Blood Pressure 100/62 98/64 77/49 (mmHg) O2 Sat by Pulse 95 95 95 Oximetry 07/09/18 07/09/18 07/09/18 08:31 08:45 09:00 Temperature Pulse Rate 82 78 79 Respiratory 20 Rate Blood Pressure 74/45 90/61 88/55 (mmHg) O2 Sat by Pulse 94 95 95 Oximetry 07/09/18 07/09/18 07/09/18 09:15 09:30 09:45 Temperature Pulse Rate 80 79 75 Respiratory Rate Blood Pressure 93/59 85/59 89/57 (mmHg) O2 Sat by Pulse 95 94 94 Oximetry 07/09/18 07/09/18 07/09/18 10:00 10:15 10:30 Temperature Pulse Rate 74 78 78 Respiratory 20 Rate Blood Pressure 102/64 114/69 112/69 (mmHg) O2 Sat by Pulse 96 94 94 Oximetry 07/09/18 07/09/18 07/09/18 10:45 11:00 11:15 Temperature Pulse Rate 77 83 78 Respiratory 20 Rate Blood Pressure 115/72 110/72 99/64 (mmHg) O2 Sat by Pulse 94 94 95 Oximetry 07/09/18 07/09/18 07/09/18 11:30 11:45 12:00 Temperature Pulse Rate 78 77 86 Respiratory 20 Rate Blood Pressure 85/54 89/56 98/61 (mmHg) O2 Sat by Pulse 95 95 94 Oximetry 07/09/18 07/09/18 07/09/18 12:15 12:30 12:45 Temperature Pulse Rate 79 81 82 Respiratory Rate Blood Pressure 93/58 104/64 106/63 (mmHg) O2 Sat by Pulse 95 94 94 Oximetry 07/09/18 07/09/18 07/09/18 13:00 13:07 13:15 Temperature 96.7 F Pulse Rate 78 78 Respiratory 20 Rate Blood Pressure 96/58 95/57 (mmHg) O2 Sat by Pulse 95 95 Oximetry 07/09/18 07/09/18 07/09/18 13:30 13:45 14:00 Temperature Pulse Rate 76 79 81 Respiratory Rate Blood Pressure 103/64 90/55 113/69 (mmHg) O2 Sat by Pulse 94 95 94 Oximetry Intake and Output Last 24 Hours 07/07/18 07/08/18 07/09/18 07/10/18 06:59 06:59 06:59 06:59 Intake Total 596 2804.7 1794.1 2329.7 Output Total 430 62 422 26 Balance 166 2742.7 1372.1 2303.7 Weight 244 lb 0.827 oz 235 lb 14.314 oz 241 lb 13.553 oz Intake: IV Fluids 260 667.5 250 45.6 NS (0.9%) 60 388.5 107 45.6 albumin 200 279 143 IVPB 136 325 244 347 ABX 60 NS (0.9%) 244 albumin 136 265 347 Medicated IV 1042.2 1250.1 1937.1 CC - Norepinephrine/ 677 879 949 Levophed GEN - Pantoprazole/ 284 299 318 Protonix Neosynephrine 593 Vasopressin 81.2 72.1 77.1 Oral 200 0 0 Tube Feeding Flush Amount 70 50 Packed Cells 700 Output: NG Tube Drainage Amount 400 Urine 160 Rose 270 62 22 26 Other: Date of Last Bowel t Movement Estimated Stool Amount Medium Oxygen Devices in Use Now: Mechanical Ventilator Neurology Exam: General: Ill appearing man who is intubated and sedated. Neurological Findings: Off sedation for 3 hours. Patient does not wake to auditory or noxious stimuli. Cranial Nerves: Pupils were equal, round, and reactive with constriction from 3 mm to 2 mm. Oculocephalic reflex intact. Corneal reflexes intact. He did not grimace to nasal stimuli. Gag weak but present. Motor: flaccid tone. He is quadriplegic. Sensory: Patient does not localize to pain Reflexes: trace throughout. Coordination: Could not be assessed due to mental status. Gait: Could not be assessed due to mental status. 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 The patient is now at risk for critical illness myopathy. 2. Hypoxic and metabolic encephalopathy- not responsive off sedation. This is likely due to sedation. 3. Left ptosis with respiratory insufficiency-Not related to MG as the acetylcholine receptors are negative. 4. Thrombocytopenia and anemia- hematology is following. Recommendations: - Hold off on the EMG due to thrombocytopenia and the test requires some participation. - Neuro checks every 1 hour. - Continue supportive care Prognosis: guarded but given the lack of response today off sedation, his overall prognosis is not favorable. There is no further acute neurological work-up recommended at this time. Please contact us for any questions or concerns. I will sign off.
[2018-07-10] MEDS: Pantoprazole* 80 mg IN NS 80 MG/250 ML BAG IVPB SCH ×4 (00:16→17:44)
[2018-07-10] MEDS: Norepinephrine 16MCG/ML IVPRE* 4,000 MCG/250 ML BAG IV SCH ×8 (00:49→22:47)
[2018-07-10] MEDS: Albumin Human 25%* 25 GM/100 ML BTL IV SCH ×4 (01:34→20:36)
[2018-07-10] MEDS: Hydrocortisone INJ* 100 MG VIAL IV SCH ×3 (01:34→17:17)
[2018-07-10] MEDS: Chlorhexidine MOUTHWASH 0.12%* 15 ML UDC TOPICAL SCH ×6 (01:34→21:50)
[2018-07-10] MEDS: Phenylephrine 10 MG/ML VIAL* 50 MG in NS 0.9% 250 ML* 245 ML IV SCH ×7 (02:33→22:52)
[2018-07-10] MEDS: Norepinephrine VIAL* 8 MG in NS 0.9% 500 ML* 492 ML IV SCH ×3 (03:17→16:56)
[2018-07-10] MEDS: Insulin LISPRO* 1 UNITS UNIT SUBCUT SCH ×5 (03:57→20:00)
[2018-07-10 05:46] LABS: Hematocrit 22 % (36-46); Hemoglobin 7.4 g/dL (14.0-18.0); Mean Corpuscular HGB Conc 34 g/dL (31-36); Mean Corpuscular Hemoglobin 28 pg (27-31); Mean Corpuscular Volume 83 fL (80-94); Mean Platelet Volume 9.8 fL (7.4-10.4); Platelet Count 9 10^3/uL (150-450); Red Blood Count 2.63 10^6 /uL (4.18-5.48); Red Cell Distribution Width 21 % (10.5-15); White Blood Count 6.2 10^3/uL (3.5-10.8)
[2018-07-10 05:54] LABS: Albumin 3.3 g/dL (3.2-5.2); Albumin/Globulin Ratio 2.5 (1-3); BUN/Creatinine Ratio 24.5 (8-20); Calcium 7.1 mg/dL (8.6-10.3); EGFR African American 26.8 (>60); EGFR Non-African American 22.1 (>60); Globulin 1.3 g/dL (2-4); Magnesium 1.7 mg/dL (1.9-2.7); Potassium 3.7 mmol/L (3.5-5.0); Total Bilirubin 1.9 mg/dL (0.2-1.0); Total Protein 4.6 g/dL (6.4-8.9)
[2018-07-10 05:57] LABS: Activated Partial Thrombo Time 50.7 seconds (26.0-36.3); INR 1.39 (0.77-1.02)
[2018-07-10] MEDS ORDERED: Vancomycin Random Level* NOTE FOLLOW UP ONE (06:00)
[2018-07-10] MEDS: methylPREDNISolone SOD 40 MG* 1 ML VIAL IV SCH (07:45)
[2018-07-10] MEDS ORDERED: Vancomycin(*) 1,500 MG in NS 0.9% 250 ML* 250 ML IVPB ONE (08:30)
[2018-07-10] MEDS: Tamsulosin CAP* 0.4 MG PO SCH (10:00)
[2018-07-10] MEDS: Atorvastatin* 40 MG TAB PO SCH (10:00)
[2018-07-10] MEDS: Sodium Citrate/Citric Acid* 15 ML UDC PO SCH ×3 (10:00→20:36)
[2018-07-10] MEDS: Midazolam IV for DRIP* 100 MG in NS 0.9% 100 ML* 80 ML IV SCH (11:17)
--- NOTE | 2018-07-10 12:05 | PN ---
PROGRESS NOTE: DATE OF SERVICE: HISTORY: Mr. Harden has not woken up since yesterday. He has been off of his Versed drips since yes terday afternoon and is totally unresponsive. He does not wake up to his name, does not move spontan eously, does not respond to noxious stimuli. He tolerated dialysis reasonably well yesterday withou t any complications. He still maintains on 3 pressors with a blood pressure of 103/67, pulse 68, res pirations 19. There were no spontaneous roving eye motions. He is anicteric. His chest is signific ant, there is upper airway noise. He has [address] which are draining. The heart revea led a regular rhythm. I could not hear any murmurs. The abdomen is distended. Bowel sounds are pos itive. He is draining out of his rectal tube. Urinary output is poor, being 17 cc overnight, but he did get dialyzed yesterday and we were able to ultrafilter off 4 kg. A review of his laboratory studies reveals a white count of 6.2, hemoglobin of 7.4, platelet count o f 9. Sodium 142, potassium 3.7, total CO2 of 21, chloride 104, BUN 69 with a creatinine of 2.82, glu cose 125 , calcium 7.1, phosphorus 5, magnesium 1.7, albumin is 3. He is still receiving his intermi ttent albumin infusions. Recently, his urinary protein level got up to 43,785, but that was while he was still receiving supplemental albumin attempting to get diuresis. The only thing I can truly say is we have seen no significant improvement in his proteinuria. IMPRESSION: 1. Respiratory failure. 2. Coma, etiology undetermined at the present time. 3. Nephrotic syndrome. 4. Renal failure. I have discussed this case with his family. They wanted a telephone second opinion consultation clemencia cobb I concluded last night. There were no additional suggestions that were offered. His daughter woul d like him transfer to a major tertiary center in [facility]. I have begun the process of trying to arrange that. At present, of course on 3 pressors. He is unstable for transfer. There is going to be an attempt to wean those down today and we will see what happens. I have discussed the case at length with Dr. Ortiz. [id number]/[facility] #: [id number]
[2018-07-10] MEDS: Meropenem 500MG PREMIX(*) 500 MG/50 ML BAG IV SCH (14:05)
--- NOTE | 2018-07-10 16:13 | PN ---
Progress Note - Progress Note Date of Service: 07/10/18 Note: Progress Note -- Critical Care 24 hour events/significant events: -no sig events overnight -remains intubated -off sedation since yesterday early AM but has not woken up yet -no further sedatives given -remains on 3 pressors -recieved platelets this morning -generalized anasarca+ -afebrile Tele: NSR Vitals: Vital Signs Temp 97 F 07/10/18 12:00 Pulse 70 07/10/18 15:37 Resp 16 07/10/18 15:00 BP 98/64 07/10/18 15:37 Pulse Ox 98 07/10/18 15:37 Intake & Output 07/09/18 07/10/18 07/10/18 18:59 06:59 18:59 Intake Total 5351.7 1578 2160.9 Output Total 263 320 13 Balance 5088.7 1258 2147.9 Weight 106.8 kg Intake: IV Fluids 696.6 111 34 ABX 263 NS (0.9%) 70.6 111 albumin 363 34 IVPB 347 181 130 albumin 347 181 130 Medicated IV 4308.1 1286 1128.9 CC - Norepinephrine/ 2199 567 424 Levophed GEN - Pantoprazole/ 672 254 245 Protonix Neosynephrine 1286 402 400 Vasopressin 151.1 63 59.9 Tube Feeding 329 Tube Feeding Flush Amount 340 Platelets 199 Output: Chest Tube #1 235 310 Chest Tube #2 0 Rose 28 10 13 Other: Date of Last Bowel 07/10/18 Movement # Bowel Movements 2 Estimated Stool Amount Large O2/Vent: AC 50% Infusions: levophed 15, vasopressin 0.04, prashant 90, Protonix infusion 8mg/hr, Albumin infusions Medications: Atorvastatin Calcium (Lipitor*) 40 mg PO DAILY [facility] Last Admin: 07/10/18 10:00 Dose: 40 mg Chlorhexidine Gluconate (Peridex Mouth Wash 0.12%*) 15 ml TOPICAL Q4H [facility] Last Admin: 07/10/18 14:05 Dose: 15 ml Citric Acid/Sodium Citrate (Bicitra*) 30 ml PO TID [facility] Last Admin: 07/10/18 14:05 Dose: 30 ml Dextrose (D50w Syringe 50 Ml*) 12.5 gm IV PUSH .FOR FS < 60 - SS PRN PRN Reason: FS < 60 Fentanyl Citrate (Fentanyl*) 25 mcg IV SLOW PU Q4H PRN PRN Reason: PAIN Hydrocortisone Sodium Succinate (Solu-Cortef*) 100 mg IV Q8H [facility] Last Admin: 07/10/18 10:00 Dose: 100 mg Albumin Human (Albumin Human 25%*) 25 gm in 100 mls @ 20 mls/hr IV Q6H [facility] Last Admin: 07/10/18 14:05 Dose: 20 mls/hr Pantoprazole Sodium (Protonix Iv Bag*) 80 mg in 250 mls @ 25 mls/hr IVPB Q10H [facility] Last Admin: 07/10/18 11:22 Dose: 25 mls/hr Midazolam HCl 100 mg/ Sodium (Chloride) 100 mls @ 1 mls/hr IV Q24HR [facility]; Protocol Last Admin: 07/10/18 11:17 Dose: Not Given Vasopressin 100 units/ (Dextrose) 250 mls @ 6 mls/hr IVPB .(Initial Rate) [facility]; Protocol Last Admin: 07/09/18 09:55 Dose: 6 mls/hr Phenylephrine HCl 50 mg/ (Sodium Chloride) 250 mls @ 60 mls/hr IV Q4H [facility]; Protocol Last Admin: 07/10/18 14:07 Dose: Not Given Ceftriaxone Sodium 1 gm/ (Sodium Chloride) 50 mls @ 200 mls/hr IVPB Q24H [facility] Stop: 07/15/18 08:59 Norepinephrine Bitartrate (Levophed 16 Mcg/Ml Premix Bag*) 4,000 mcg in 250 mls @ 75 mls/hr IV .SEE PROTOCOL [facility]; Protocol Last Admin: 07/10/18 15:34 Dose: 75 mls/hr Insulin Human Lispro (Humalog*) 0 units SUBCUT Q4H [facility]; Protocol Last Admin: 07/10/18 12:45 Dose: 6 units Sodium Biphosphate/Sodium Phosphate (Fleet Enema*) 1 bottle NE DAILY PRN PRN Reason: CONSTIPATION Last Admin: 07/06/18 15:00 Dose: 1 bottle Tamsulosin HCl (Flomax Cap*) 0.4 mg PO DAILY [facility] Last Admin: 07/10/18 10:00 Dose: 0.4 mg Physical Exam: Constitutional: intubated, not sedated, not responsive, no distress, no diaphoresis Head: normocephalic, atraumatic Eyes: no pallor, no icterus ENT: moist mucous membranes Neck: soft, supple, no jvd CVS: normal rate, regular, no murmur Resp: bilateral air entry, scattered rhales+, no wheeze, no rhonchi, no acc muscle use; Bilateral chest tubes+ Abdomen/GI: soft, nondistended, BS+ Ext/Msk: warm, pulses+, GROSS ANASARCA+ Skin: intact, warm Neuro: not responsive; pupils pinpoint, cough+ , gag+ Labs: Laboratory Results - last 24 hr 07/09/18 07/09/18 07/09/18 16:01 16:04 20:24 WBC RBC Hgb Hct MCV MCH MCHC RDW Plt Count MPV INR (Anticoag Therapy) APTT Sodium Potassium Chloride Carbon Dioxide Anion Gap BUN Creatinine Est GFR ( Amer) Est GFR (Non-Af Amer) BUN/Creatinine Ratio Glucose POC Glucose (mg/dL) 159 H 169 H Lactic Acid 2.2 H* Calcium Ionized Calcium Phosphorus Magnesium Total Bilirubin AST ALT Alkaline Phosphatase Total Protein Albumin Globulin Albumin/Globulin Ratio Random Vancomycin 07/09/18 07/10/18 07/10/18 23:20 03:53 05:11 WBC RBC Hgb Hct MCV MCH MCHC RDW Plt Count MPV INR (Anticoag Therapy) 1.39 H APTT 50.7 H Sodium Potassium Chloride Carbon Dioxide Anion Gap BUN Creatinine Est GFR ( Amer) Est GFR (Non-Af Amer) BUN/Creatinine Ratio Glucose POC Glucose (mg/dL) 162 H 169 H Lactic Acid Calcium Ionized Calcium Phosphorus Magnesium Total Bilirubin AST ALT Alkaline Phosphatase Total Protein Albumin Globulin Albumin/Globulin Ratio Random Vancomycin 07/10/18 07/10/18 07/10/18 05:11 05:11 05:11 WBC 6.2 RBC 2.63 L Hgb 7.4 L Hct 22 L MCV 83 MCH 28 MCHC 34 RDW 21 H Plt Count 9 L* MPV 9.8 INR (Anticoag Therapy) APTT Sodium 142 Potassium 3.7 Chloride 104 Carbon Dioxide 21 L Anion Gap 17 H BUN 69 H Creatinine 2.82 H Est GFR ( Amer) 26.8 Est GFR (Non-Af Amer) 22.1 BUN/Creatinine Ratio 24.5 H Glucose 125 H POC Glucose (mg/dL) Lactic Acid Calcium 7.1 L Ionized Calcium 0.94 L Phosphorus 5.0 Magnesium 1.7 L Total Bilirubin 1.90 H AST 27 ALT 12 Alkaline Phosphatase 108 H Total Protein 4.6 L Albumin 3.3 Globulin 1.3 L Albumin/Globulin Ratio 2.5 Random Vancomycin 8.0 07/10/18 07/10/18 07/10/18 08:02 12:39 15:34 WBC RBC Hgb Hct MCV MCH MCHC RDW Plt Count MPV INR (Anticoag Therapy) APTT Sodium Potassium Chloride Carbon Dioxide Anion Gap BUN Creatinine Est GFR ( Amer) Est GFR (Non-Af Amer) BUN/Creatinine Ratio Glucose POC Glucose (mg/dL) 170 H 208 H 191 H Lactic Acid Calcium Ionized Calcium Phosphorus Magnesium Total Bilirubin AST ALT Alkaline Phosphatase Total Protein Albumin Globulin Albumin/Globulin Ratio Random Vancomycin Imaging: cxr 07/09 - small bilateral infiltrates/effusions tte 07/07 - normal Lv function, LA mod dilated, trace AI, modeate PI, estimated PASP 37 CT brain 07/10 - no acute intracranial abnormality CT abd/pelvis 07/07 - large bilateral effusions with compressive atelectasis, pelvis left kidney, no RP hematoma, diffuse edema, small ascites Assessment: 56y M w/pmhx of DM, Anxiety, 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 He comes in 07/01 for weakness, SOB, malaise. Patient was admitted for workup on 07/01. Started Tx for Enterococcus UTI+. Progressive weakness, suspected to be more bulbar, leading to respiratory distress and need for NIV on 07/06. Progressive Resp failure and encephalopathy, intubated 07/07, Oliguric CHACORTA requiring new HD 07/07. 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 07/08 bilateral chest tubes for large effusions placed. -Weakness, multifactorial steroids +/- infectious -Acute respiratory failure, intubated 07/07 -CHACORTA on CKD/FSGS, now on HD 07/07 -metabolic acidosisis -Nephrotic Syndrome/Hypoproteinemia with anasarca/volume overload -Shock, unspecified, suspect septic -Citrobacter and Bramhanella Pneumonia/Bronchitis -Anemia -Thrombocytopenia -Bilateral pleural effusions; s/p CTs B/L 07/08 -Encephalopathy, metabolic -?? Cholecystitis; needs HIDA Plan: Neuro- has not woken despite being off sedatives. Last CT brain without acute pathology. has been on steroids with hydrocortisone now. no sedatives for >24 hours it seems. Brainstem reflexes are present though. -will continue off any sedatives. cont neurochecks. would like to likely perform another CT brain tomorrow if still not waking -possible EEG needed? -will have neuro re-eval in AM CVS- shock, suspect septic component -on levophed, vasopressin, prashant -stress steroids hydrocortisone 100mg q8h -off IVF; but has been gettting albumin q6h 25% infusions -last HD 07/09 -last hg 7-8s; no clear bleeding noted -IV abx Resp- intubated, on 50% fio2, breathing at or above ventilator rate -mild caruso/white secretions being suctioned -no active wheezing noted -sputum growth with citrobacter and branhamella; on IV abx -cont pulm toilet, vap bundle ID- afebrile. wbc 6. -CXR with bialteral small infiltrates+ -Sputum culture with citrobacter and branhamella; sensitivities reviewed -d/c merrem; change to CTX 1gm IV daily GI- NPO; may need to start trickle feeds, possibly nepro 10cc/hr -change PPI infusion to h2b daily; no noted GI bleeding, so PPI not indicated Renal- -progressive FSGS; large amounts of proteinuria+ noted on 07/06 24 hr urine sample. -has been getting albumin 25% q6h to help maintain intravascular state -oliguric state -HD session will help to off set overall volume status -unclear how much the anasarca will improve with the loss of so much protein -maintian hemodyn with pressors for now -repeat HD session thursday -off immunesuppressive therapy Heme--anemia; hg has remained stable -thrombocytopenia 9; s/p plt transfusion today -suspect this drop in plt and anemia 2/2 to BM effects of Cellcept and some PCN effect? underlying sepsis now? -TTP w/u negative, no GI bleeding noted -repeat CBC today -remains off immunesuppressants now; on betalactams as Abx still Endo-Maintain BG<200, insulin protocol as needed Musculsk- pressure ulcer prophylaxis. Bedrest. Wounds- none Nutrition- NPO; start nepro 10cc/hr DVT prophylaxis: no chemical 2/2 to thrombocytopenia; SCDs GI prophylaxis: h2b daily Central Line: Right fem TLC; RIJ HD Arterial Line: no Rose Cathetor: yes Disposition: Patient requires Critical Care/ICU for respiratory failure, shock , CHACORTA, anasarca Patient clinical status: unstable, critical Code Status: DNR Total Critical Care time is 50 minutes, excluding procedures/teaching Jorge Ortiz MD Skills Instructor (Electronically Signed)
[2018-07-10 17:15] LABS: ABS Basophils 0 10^3/ul (0-0.2); ABS Eosinophils 0 10^3/ul (0-0.6); ABS Lymphocytes 0.1 10^3/ul (1.0-4.8); ABS Monocytes 0 10^3/ul (0-0.8); ABS Neutrophils 5.4 10^3/ul (1.5-7.7); ABS Nucleated RBC 0 10^3/ul; Eosinophil % 0.4 %; Hematocrit 21 % (36-46); Hemoglobin 6.9 g/dL (14.0-18.0); Lymphocyte % 1.6 %; Mean Corpuscular HGB Conc 33 g/dL (31-36); Mean Corpuscular Hemoglobin 28 pg (27-31); Mean Corpuscular Volume 83 fL (80-94); Mean Platelet Volume 8.5 fL (7.4-10.4); Nucleated Red Blood Cells % 0.1; Red Blood Count 2.48 10^6 /uL (4.18-5.48); Red Cell Distribution Width 21 % (10.5-15); White Blood Count 5.5 10^3/uL (3.5-10.8)
[2018-07-10 17:27] LABS: Albumin 3.4 g/dL (3.2-5.2); Albumin/Globulin Ratio 2.8 (1-3); BUN/Creatinine Ratio 23.8 (8-20); EGFR African American 25.5 (>60); EGFR Non-African American 21.1 (>60); Globulin 1.2 g/dL (2-4); Magnesium 1.8 mg/dL (1.9-2.7); Potassium 3.6 mmol/L (3.5-5.0); Total Bilirubin 2.7 mg/dL (0.2-1.0); Total Protein 4.6 g/dL (6.4-8.9)
[2018-07-10 23:48] LABS: Platelet Count 11 10^3/uL (150-450)
[2018-07-11] MEDS: Insulin LISPRO* 1 UNITS UNIT SUBCUT SCH ×7 (00:26→23:45)
[2018-07-11] MEDS: Phenylephrine 10 MG/ML VIAL* 50 MG in NS 0.9% 250 ML* 245 ML IV SCH ×7 (01:48→23:05)
[2018-07-11] MEDS: Norepinephrine 16MCG/ML IVPRE* 4,000 MCG/250 ML BAG IV SCH ×5 (01:48→20:14)
[2018-07-11] MEDS: Chlorhexidine MOUTHWASH 0.12%* 15 ML UDC TOPICAL SCH ×6 (01:48→22:01)
[2018-07-11] MEDS: Hydrocortisone INJ* 100 MG VIAL IV SCH ×3 (01:48→16:59)
[2018-07-11] MEDS: Vasopressin* 100 UNITS in D5W 250 ML BAG* 245 ML IVPB SCH (01:52)
[2018-07-11] MEDS: Albumin Human 25%* 25 GM/100 ML BTL IV SCH ×2 (02:35→08:24)
[2018-07-11 05:13] LABS: Hematocrit 20 % (36-46); Hemoglobin 6.9 g/dL (14.0-18.0); Mean Corpuscular HGB Conc 34 g/dL (31-36); Mean Corpuscular Hemoglobin 28 pg (27-31); Mean Corpuscular Volume 84 fL (80-94); Mean Platelet Volume 9.5 fL (7.4-10.4); Platelet Count 7 10^3/uL (150-450); Red Blood Count 2.43 10^6 /uL (4.18-5.48); Red Cell Distribution Width 20 % (10.5-15); White Blood Count 3.8 10^3/uL (3.5-10.8)
[2018-07-11 05:18] LABS: Activated Partial Thrombo Time 50.6 seconds (26.0-36.3); INR 1.25 (0.77-1.02)
[2018-07-11 05:19] LABS: Albumin 3.2 g/dL (3.2-5.2); Albumin/Globulin Ratio 2.7 (1-3); BUN/Creatinine Ratio 25.1 (8-20); EGFR African American 24.7 (>60); EGFR Non-African American 20.4 (>60); Globulin 1.2 g/dL (2-4); Magnesium 1.7 mg/dL (1.9-2.7); Phosphorus 4.6 mg/dL (2.5-5.0); Potassium 3.4 mmol/L (3.5-5.0); Total Bilirubin 2.4 mg/dL (0.2-1.0); Total Protein 4.4 g/dL (6.4-8.9); Vancomycin Random 16.2 mcg/mL
[2018-07-11] MEDS ORDERED: Vancomycin Random Level* NOTE FOLLOW UP ONE (06:00)
[2018-07-11] MEDS ORDERED: Magnesium Sulfate 1 GM IV* 1 GM/100 ML BAG IV ONE (09:32)
[2018-07-11] MEDS ORDERED: KCL 20 MEQ/100 ML IVPREMIX* 20 MEQ/100 ML BAG IV ONE (09:32)
--- NOTE | 2018-07-11 09:36 | PN ---
Progress Note - Progress Note Date of Service: 07/11/18 Note: Arterial Line Procedure Note Indication: frequent arterial blood gases , invasive hemodynamic monitoring Diagnosis: septic shock, acute hypoxic respiratory failure, encephalopathy Performed by: Jorge Ortiz MD Consent: Emergent [place] Protocol: Time-out was performed and the correct patient and site were verified - Prior labs/history was reviewed prior to procedure; patient thrombocytopenic, not plt 7 but actively recieving plt transfusion at this time, procedure to be done during plt transfusion - Full sterile precautions with chlorhexidine/full drapes/gowns/gloves utilized - Right radial artery visualized with US - Vessel accessed with return of pulsatile blood. One attempt was made to access vessel. A cathetor was threaded over wire into vessel. Good arterial waveform was observed on monitor. - Arterial Catheter was sutured to site; dressing applied to site. EBL <2 cc No immediate complications noted, patient tolerated procedure well. No bleeding during procedure, sutured well to site Jorge Ortiz MD General Maintenance Mechanic (Electronically Signed)
[2018-07-11] MEDS: Tamsulosin CAP* 0.4 MG PO SCH (09:58)
[2018-07-11] MEDS: Atorvastatin* 40 MG TAB PO SCH (09:58)
[2018-07-11] MEDS: Sodium Citrate/Citric Acid* 15 ML UDC PO SCH ×3 (09:58→20:18)
[2018-07-11] MEDS: Midazolam IV for DRIP* 100 MG in NS 0.9% 100 ML* 80 ML IV SCH (09:58)
[2018-07-11] MEDS: Famotidine IV* 10 MG/ML 2 ML (20 mg) IV SLOW PU SCH (09:58)
[2018-07-11] MEDS: cefTRIAXone(*) 1 GM in NS 0.9% 50 ML* 50 ML IVPB SCH (09:58)
--- NOTE | 2018-07-11 10:31 | PN ---
Progress Note - Progress Note Date of Service: 07/11/18 Note: Progress Note -- Critical Care 24 hour events/significant events: -overnight went up on fio2 to 100% -remains on 2 pressors; off prashant this morning -attempted call to [place] for transfer as per family request but he appears to be on a lot of pressors and was not deemed to be a safe transfer there -remains intubated -remains off sedation; not responsive; some mild spontaneous upper head movements -ordered for prbc and plt this morning -generalized anasarca+ -afebrile Tele: NSR Vitals: Vital Signs Temp 97.6 F 07/11/18 03:28 Pulse 70 07/11/18 06:30 Resp 20 07/11/18 06:00 BP 102/71 07/11/18 06:30 Pulse Ox 99 07/11/18 06:30 Intake & Output 07/10/18 07/11/18 07/11/18 18:59 06:59 18:59 Intake Total 2160.9 1781 Output Total 173 55 Balance 1987.9 1726 Weight 105.052 kg Intake: IV Fluids 34 82 NS (0.9%) 82 albumin 34 IVPB 130 204 ABX 60 albumin 130 144 Medicated IV 1128.9 1358 CC - Norepinephrine/ 424 1060 Levophed GEN - Pantoprazole/ 245 94 Protonix Neosynephrine 400 115 Vasopressin 59.9 89 Tube Feeding 329 Tube Feeding Flush Amount 340 Platelets 199 Albumin 137 Output: Chest Tube #1 160 45 Rose 13 10 Other: Date of Last Bowel 07/11/18 Movement # Bowel Movements 1 Estimated Stool Amount Large # Voids 0 O2/Vent: AC 14/500/+5/95% Infusions: levophed 15, vasopressin 0.04, prashant off, Protonix infusion 8mg/hr, Albumin infusions Medications: Atorvastatin Calcium (Lipitor*) 40 mg PO DAILY [facility] Last Admin: 07/11/18 09:58 Dose: 40 mg Chlorhexidine Gluconate (Peridex Mouth Wash 0.12%*) 15 ml TOPICAL Q4H [facility] Last Admin: 07/11/18 09:58 Dose: 15 ml Citric Acid/Sodium Citrate (Bicitra*) 30 ml PO TID [facility] Last Admin: 07/11/18 09:58 Dose: 30 ml Dextrose (D50w Syringe 50 Ml*) 12.5 gm IV PUSH .FOR FS < 60 - SS PRN PRN Reason: FS < 60 Famotidine (Pepcid Iv*) 20 mg IV SLOW PU DAILY [facility] Last Admin: 07/11/18 09:58 Dose: 20 mg Fentanyl Citrate (Fentanyl*) 25 mcg IV SLOW PU Q4H PRN PRN Reason: PAIN Hydrocortisone Sodium Succinate (Solu-Cortef*) 100 mg IV Q8H [facility] Last Admin: 07/11/18 09:58 Dose: 100 mg Albumin Human (Albumin Human 25%*) 25 gm in 100 mls @ 20 mls/hr IV Q6H [facility] Last Admin: 07/11/18 08:24 Dose: 20 mls/hr Midazolam HCl 100 mg/ Sodium (Chloride) 100 mls @ 1 mls/hr IV Q24HR [facility]; Protocol Last Admin: 07/11/18 09:58 Dose: Not Given Vasopressin 100 units/ (Dextrose) 250 mls @ 6 mls/hr IVPB .(Initial Rate) [facility]; Protocol Last Admin: 07/11/18 01:52 Dose: 6 mls/hr Phenylephrine HCl 50 mg/ (Sodium Chloride) 250 mls @ 60 mls/hr IV Q4H [facility]PH[facility]; Protocol Last Admin: 07/11/18 06:34 Dose: Not Given Ceftriaxone Sodium 1 gm/ (Sodium Chloride) 50 mls @ 200 mls/hr IVPB Q24H STEPH[facility] Stop: 07/15/18 08:59 Last Admin: 07/11/18 09:58 Dose: 200 mls/hr Norepinephrine Bitartrate (Levophed 16 Mcg/Ml Premix Bag*) 4,000 mcg in 250 mls @ 75 mls/hr IV .SEE PROTOCOL STEPHEN; Protocol Last Admin: 07/11/18 08:22 Dose: 75 mls/hr Potassium Chloride (Potassium Chloride 20 Meq/100 Ml Ivpremix*) 20 meq in 100 mls @ 50 mls/hr IV ONCE ONE Stop: 07/11/18 11:31 Insulin Human Lispro (Humalog*) 0 units SUBCUT Q4H STEPH[facility]; Protocol Last Admin: 07/11/18 09:57 Dose: 2 units Sodium Biphosphate/Sodium Phosphate (Fleet Enema*) 1 bottle DC DAILY PRN PRN Reason: CONSTIPATION Last Admin: 07/06/18 15:00 Dose: 1 bottle Tamsulosin HCl (Flomax Cap*) 0.4 mg PO DAILY [facility] Last Admin: 07/11/18 09:58 Dose: 0.4 mg Physical Exam: Constitutional: intubated, not sedated, not responsive, no distress, no diaphoresis Head: normocephalic, atraumatic Eyes: no pallor, no icterus ENT: moist mucous membranes Neck: soft, supple, no jvd CVS: normal rate, regular, no murmur Resp: bilateral air entry, scattered rhales+, no wheeze, no rhonchi, no acc muscle use; Bilateral chest tubes+ Abdomen/GI: soft, nondistended, BS+ Ext/Msk: warm, pulses+, GROSS ANASARCA+ Skin: intact, warm Neuro: not responsive; pupils pinpoint, cough+ , gag+ Labs: Laboratory Results - last 24 hr 07/10/18 07/10/18 07/10/18 05:51 12:39 15:34 WBC RBC Hgb Hct MCV MCH MCHC RDW Plt Count MPV Neut % (Auto) Lymph % (Auto) [place] % (Auto) Eos % (Auto) Baso % (Auto) Absolute Neuts (auto) Absolute Lymphs (auto) Absolute Monos (auto) Absolute Eos (auto) Absolute Basos (auto) Absolute Nucleated RBC Nucleated RBC % INR (Anticoag Therapy) APTT Sodium Potassium Chloride Carbon Dioxide Anion Gap BUN Creatinine Est GFR ( Amer) Est GFR (Non-Af Amer) BUN/Creatinine Ratio Glucose POC Glucose (mg/dL) 208 H 191 H Calcium Ionized Calcium Phosphorus Magnesium Total Bilirubin AST ALT Alkaline Phosphatase Total Protein Albumin Globulin Albumin/Globulin Ratio Random Vancomycin Blood Type A Positive Antibody Screen Negative Crossmatch See Detail 07/10/18 07/10/18 07/10/18 16:52 16:52 19:56 WBC 5.5 RBC 2.48 L Hgb 6.9 L Hct 21 L MCV 83 MCH 28 MCHC 33 RDW 21 H Plt Count 11 L* MPV 8.5 Neut % (Auto) 97.5 Lymph % (Auto) 1.6 [place] % (Auto) 0.4 Eos % (Auto) 0.4 Baso % (Auto) 0.1 Absolute Neuts (auto) 5.4 Absolute Lymphs (auto) 0.1 L Absolute Monos (auto) 0 Absolute Eos (auto) 0 Absolute Basos (auto) 0 Absolute Nucleated RBC 0 Nucleated RBC % 0.1 INR (Anticoag Therapy) APTT Sodium 142 Potassium 3.6 Chloride 105 Carbon Dioxide 22 Anion Gap 15 H BUN 70 H Creatinine 2.94 H Est GFR ( Amer) 25.5 Est GFR (Non-Af Amer) 21.1 BUN/Creatinine Ratio 23.8 H Glucose 150 H POC Glucose (mg/dL) 172 H Calcium 7.0 L Ionized Calcium Phosphorus Magnesium 1.8 L Total Bilirubin 2.70 H AST 26 ALT 12 Alkaline Phosphatase 95 Total Protein 4.6 L Albumin 3.4 Globulin 1.2 L Albumin/Globulin Ratio 2.8 Random Vancomycin Blood Type Antibody Screen Crossmatch 07/11/18 07/11/18 07/11/18 00:20 04:00 04:40 WBC RBC Hgb Hct MCV MCH MCHC RDW Plt Count MPV Neut % (Auto) Lymph % (Auto) [place] % (Auto) Eos % (Auto) Baso % (Auto) Absolute Neuts (auto) Absolute Lymphs (auto) Absolute Monos (auto) Absolute Eos (auto) Absolute Basos (auto) Absolute Nucleated RBC Nucleated RBC % INR (Anticoag Therapy) 1.25 H APTT 50.6 H Sodium Potassium Chloride Carbon Dioxide Anion Gap BUN Creatinine Est GFR ( Amer) Est GFR (Non-Af Amer) BUN/Creatinine Ratio Glucose POC Glucose (mg/dL) 172 H 158 H Calcium Ionized Calcium Phosphorus Magnesium Total Bilirubin AST ALT Alkaline Phosphatase Total Protein Albumin Globulin Albumin/Globulin Ratio Random Vancomycin Blood Type Antibody Screen Crossmatch 07/11/18 07/11/18 07/11/18 04:40 04:40 04:40 WBC 3.8 RBC 2.43 L Hgb 6.9 L Hct 20 L MCV 84 MCH 28 MCHC 34 RDW 20 H Plt Count 7 L* MPV 9.5 Neut % (Auto) Lymph % (Auto) [place] % (Auto) Eos % (Auto) Baso % (Auto) Absolute Neuts (auto) Absolute Lymphs (auto) Absolute Monos (auto) Absolute Eos (auto) Absolute Basos (auto) Absolute Nucleated RBC Nucleated RBC % INR (Anticoag Therapy) APTT Sodium 143 Potassium 3.4 L Chloride 106 Carbon Dioxide 23 Anion Gap 14 H BUN 76 H Creatinine 3.03 H Est GFR ( Amer) 24.7 Est GFR (Non-Af Amer) 20.4 BUN/Creatinine Ratio 25.1 H Glucose 122 H POC Glucose (mg/dL) Calcium 7.0 L Ionized Calcium 0.90 L Phosphorus 4.6 Magnesium 1.7 L Total Bilirubin 2.40 H AST 27 ALT 11 Alkaline Phosphatase 85 Total Protein 4.4 L Albumin 3.2 Globulin 1.2 L Albumin/Globulin Ratio 2.7 Random Vancomycin 16.2 Blood Type Antibody Screen Crossmatch 07/11/18 07:47 WBC RBC Hgb Hct MCV MCH MCHC RDW Plt Count MPV Neut % (Auto) Lymph % (Auto) [place] % (Auto) Eos % (Auto) Baso % (Auto) Absolute Neuts (auto) Absolute Lymphs (auto) Absolute Monos (auto) Absolute Eos (auto) Absolute Basos (auto) Absolute Nucleated RBC Nucleated RBC % INR (Anticoag Therapy) APTT Sodium Potassium Chloride Carbon Dioxide Anion Gap BUN Creatinine Est GFR ( Amer) Est GFR (Non-Af Amer) BUN/Creatinine Ratio Glucose POC Glucose (mg/dL) 148 H Calcium Ionized Calcium Phosphorus Magnesium Total Bilirubin AST ALT Alkaline Phosphatase Total Protein Albumin Globulin Albumin/Globulin Ratio Random Vancomycin Blood Type Antibody Screen Crossmatch Imaging: cxr 07/09 - small bilateral infiltrates/effusions tte 07/07 - normal Lv function, LA mod dilated, trace AI, modeate PI, estimated PASP 37 CT brain 07/10 - no acute intracranial abnormality CT abd/pelvis 07/07 - large bilateral effusions with compressive atelectasis, pelvis left kidney, no RP hematoma, diffuse edema, small ascites cxr 07/11 - ett above lizbet; bilateral congestion appears better on right now, mild on left still persistent Assessment: 56y M w/pmhx of DM, Anxiety, 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 He comes in 07/01 for weakness, SOB, malaise. Patient was admitted for workup on 07/01. Started Tx for Enterococcus UTI+. Progressive weakness, suspected to be more bulbar, leading to respiratory distress and need for NIV on 07/06. Progressive Resp failure and encephalopathy, intubated 07/07, Oliguric CHACORTA requiring new HD 07/07. 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 07/08 bilateral chest tubes for large effusions placed. -Weakness, multifactorial steroids +/- infectious -Acute respiratory failure, intubated 07/07 -CHACORTA on CKD/FSGS, now on HD 07/07 -metabolic acidosisis -Nephrotic Syndrome/Hypoproteinemia with anasarca/volume overload -Shock, unspecified, suspect septic -Citrobacter and Bramhanella Pneumonia/Bronchitis -Anemia -Thrombocytopenia -Bilateral pleural effusions; s/p CTs B/L 07/08 -Encephalopathy, metabolic -?? Cholecystitis; needs HIDA Plan: Neuro- has not woken despite being off sedatives. Last CT brain without acute pathology. has been on steroids with hydrocortisone now. no sedatives for >24 hours it seems. Brainstem reflexes are present though. -will continue off any sedatives. cont neurochecks. -suspect metabolic encephalopathy component -remains afebrile; check abg today for CO2 level -possible EEG needed? -will have neuro re-eval CVS- -shock, suspect septic component -on levophed, vasopressin; off ne -placed arterial line this morning for hemodyn monitoring and frequent abgs -stress steroids hydrocortisone 100mg q8h -off IVF; but has been gettting albumin q6h 25% infusions; will continue for now -last HD 07/09; needs HD tomorrow -last hg 7-8s; no clear bleeding noted -IV abx Resp- intubated, on 100% fio2, breathing at or above ventilator rate -overnight had desaturation and fio2 increased -check ABG now -CXR 07/11 without worsened pulm congestion, not suspicious for worsened edema or increasing infiltrates; no collapse noted -secretions are mild but unchanged -no active wheezing noted -sputum growth with citrobacter and branhamella; on IV abx -cont pulm toilet, vap bundle ID- afebrile. wbc 4 -CXR with bialteral small infiltrates+/congestion at bases -Sputum culture with citrobacter and branhamella; sensitivities reviewed -Cont CTX 1gm IV daily (day#5); d/c vanco GI- -OGT -Started nepro TF; 10cc/hr; increase by 10 q8h to goal of 40cc/hr -GI proph; h2b Renal- -progressive FSGS; large amounts of proteinuria+ noted on 07/06 24 hr urine sample. -has been getting albumin 25% q6h to help maintain intravascular state -oliguric state -HD session will help to off set overall volume status -unclear how much the anasarca will improve with the loss of so much protein -maintian hemodyn with pressors for now -repeat HD session thursday -may have to consider CVVH; if Hd indicated today then will have to transfer -off immunesuppressive therapy Heme- -anemia, hs 6.9 today, slow downtrend -transfusing 1 prbc -thrombocytopenia 7; s/p plt transfusion today x1 unit -suspect this drop in plt and anemia 2/2 to BM effects of Cellcept and some PCN effect? underlying sepsis now? -TTP w/u negative, no GI bleeding noted -remains off immunesuppressants now; on betalactams as Abx still Endo-Maintain BG<200, insulin protocol as needed Musculsk- pressure ulcer prophylaxis. Bedrest. Wounds- none Nutrition- nepro TF DVT prophylaxis: no chemical 2/2 to thrombocytopenia; SCDs GI prophylaxis: h2b daily Central Line: Right fem TLC; RIJ HD Arterial Line: no Rose Cathetor: yes Disposition: Patient requires Critical Care/ICU for respiratory failure, shock , CHACORTA, anasarca Patient clinical status: unstable, critical Code Status: DNR Total Critical Care time is 50 minutes, excluding procedures/teaching Jorge Ortiz MD Biopharmaceutical Rep (Electronically Signed)
[2018-07-11 11:57] LABS: Hematocrit 22 % (36-46); Hemoglobin 7.3 g/dL (14.0-18.0); Mean Corpuscular HGB Conc 34 g/dL (31-36); Mean Corpuscular Hemoglobin 29 pg (27-31); Mean Corpuscular Volume 84 fL (80-94); Mean Platelet Volume 8.1 fL (7.4-10.4); Platelet Count 14 10^3/uL (150-450); Red Blood Count 2.56 10^6 /uL (4.18-5.48); Red Cell Distribution Width 21 % (10.5-15); White Blood Count 3.1 10^3/uL (3.5-10.8)
[2018-07-11 12:23] LABS: ABS Basophils 0 10^3/ul (0-0.2); ABS Eosinophils 0 10^3/ul (0-0.6); ABS Lymphocytes 0.1 10^3/ul (1.0-4.8); ABS Monocytes 0 10^3/ul (0-0.8); ABS Neutrophils 2.9 10^3/ul (1.5-7.7)
[2018-07-11 12:27] LABS: Immature Granulocytes 7 % (0-9); Lymphocytes % 3 %; Metamyelocytes % 2 % (0-2); Monocytes % 2 %; Neutrophil % 88 %
[2018-07-11 12:28] LABS: Acanthocytes 1+
[2018-07-11 12:31] LABS: Burr Cells 1+
[2018-07-11 12:32] LABS: ABS Neutrophils 2.94 10^3/ul (1.5-7.7)
--- NOTE | 2018-07-11 22:09 | PN ---
PROGRESS NOTE: DATE OF SERVICE: 07/11/18 ADDENDUM: Neurological followup. I have also discussed with Dr. Ortiz the fact that we cannot obtain a spinal tap due to his thrombocytopenia and this would be a test he would typically get otherwise in somebody who has encephalopathy of unclear etiology, especially in someone who is immunosuppressed. I do not think that this is likely to be infectious, but I have discussed this with Dr. Ortiz and he is contemplating broadening the antibiotics. The patient will be at risk for other things such as Cryptococcus, but this would be unlikely given his clinical course and treatment for that would inappropriate at this time because it is unlikely and we do not have access to his spinal fluid. Thank you for sharing his case. [id number]/[facility] [place] #: [id number] JACQUELYN
--- NOTE | 2018-07-11 22:16 | PN ---
PROGRESS NOTE: DATE OF SERVICE: 07/11/18 PATIENT OF: Dr. Ortiz. HISTORY: A 72-year-old man who Dr. Bran had signed off, and at the family's request, I am re-evaluating him. He is a 72-year-old man with nephrotic syndrome, who had generalized weakness and was unresponsive. He had been on Versed drip up until Thursday. He had a left ptosis and generalized weakness. Before that, Dr. Bran had thought he had a steroid myopathy. This was possibly a critical illness, myopathy, metabolic encephalopathy thought mostly due to sedation, thrombocytopenia, and a left ptosis. CURRENT MEDICATIONS: Include: 1. Lipitor. 2. Ceftriaxone. 3. Pepcid 20 mg IV daily. 4. Solu-Cortef 100 mg q.8 hours. 5. Levophed. 6. Flomax 0.4 daily. 7. Vasopressin. PHYSICAL EXAMINATION: On exam, temperature 96.8, pulse 69, respirations 30, blood pressure 103/65. He is comatose, intubated. He has had, by report, some slight movement in his right foot earlier but did not extend for me today. He has generalized anasarca. Chest had positive rales. He had bilateral chest tubes. Cardiovascular: Regular rate and rhythm. Abdomen is soft, positive bowel sounds. LABORATORY DATA: Most recent labs include a white count of 3.1, hematocrit 22, platelet count 14,000. PTT 50.6, INR 1.25. Blood gas 7.31, pCO2 31, pO2 158. BUN is 76, creatinine 3. Ionized calcium 7, total protein 4.1. [place] light chain 3.97. Various studies were negative as from before. ASSESSMENT AND PLAN: Mr. Harden is critically ill, the most likely issue for his encephalopathy is persistence of Versed in somebody who has renal failure and this will slowly come out of his system. He obviously is at risk for metabolic encephalopathy as well. If he does not begin to wake up in the next day or so, then obtaining an EEG would be reasonable as well as possibly obtaining further imaging of his brain. Impossible to determine the cause of his weakness by an exam today since this is clouded by his lack of responsiveness, but Dr. Bran's explanations are plausible. I have taken the liberty of adding an ammonia level to his blood work now to make sure that this is not a hepatic encephalopathy complicating the picture. Thank you for sharing his case. [id number]/[facility] #: [id number] JACQUELYN
[2018-07-12] MEDS: Norepinephrine 16MCG/ML IVPRE* 4,000 MCG/250 ML BAG IV SCH ×4 (00:06→15:16)
[2018-07-12] MEDS: Chlorhexidine MOUTHWASH 0.12%* 15 ML UDC TOPICAL SCH ×4 (02:27→14:03)
[2018-07-12] MEDS: Phenylephrine 10 MG/ML VIAL* 50 MG in NS 0.9% 250 ML* 245 ML IV SCH ×4 (02:27→14:31)
[2018-07-12] MEDS: Hydrocortisone INJ* 100 MG VIAL IV SCH ×2 (02:27→08:26)
[2018-07-12] MEDS: Insulin LISPRO* 1 UNITS UNIT SUBCUT SCH ×4 (03:50→16:41)
[2018-07-12 05:46] LABS: Activated Partial Thrombo Time 50.4 seconds (26.0-36.3); Hematocrit 25 % (36-46); Hemoglobin 8.3 g/dL (14.0-18.0); INR 1.24 (0.77-1.02); Mean Corpuscular HGB Conc 33 g/dL (31-36); Mean Corpuscular Hemoglobin 28 pg (27-31); Mean Corpuscular Volume 84 fL (80-94); Platelet Count 5 10^3/uL (150-450); Red Blood Count 2.95 10^6 /uL (4.18-5.48); Red Cell Distribution Width 21 % (10.5-15); White Blood Count 3.6 10^3/uL (3.5-10.8)
[2018-07-12 05:58] LABS: Albumin/Globulin Ratio 2.5 (1-3); BUN/Creatinine Ratio 25.8 (8-20); Calcium 6.8 mg/dL (8.6-10.3); EGFR Non-African American 19.8 (>60); Globulin 1.2 g/dL (2-4); Magnesium 1.9 mg/dL (1.9-2.7); Potassium 3.6 mmol/L (3.5-5.0); Total Bilirubin 2.2 mg/dL (0.2-1.0); Total Protein 4.2 g/dL (6.4-8.9)
[2018-07-12 06:12] VITALS: BP 99/59
[2018-07-12] MEDS ORDERED: Vasopressin* 100 UNITS in D5W 250 ML BAG* 245 ML IVPB SCH ×2 (07:30→11:54)
[2018-07-12] MEDS: Sodium Citrate/Citric Acid* 15 ML UDC PO SCH ×2 (08:20→14:03)
[2018-07-12] MEDS: Famotidine IV* 10 MG/ML 2 ML (20 mg) IV SLOW PU SCH (08:21)
[2018-07-12] MEDS: Tamsulosin CAP* 0.4 MG PO SCH (08:21)
[2018-07-12] MEDS: Atorvastatin* 40 MG TAB PO SCH (08:21)
[2018-07-12] MEDS: cefTRIAXone(*) 1 GM in NS 0.9% 50 ML* 50 ML IVPB SCH (08:26)
[2018-07-12] MEDS: Midazolam IV for DRIP* 100 MG in NS 0.9% 100 ML* 80 ML IV SCH (08:38)
[2018-07-12] MEDS ORDERED: Calcitriol CAP* 0.25 MCG G TUBE SCH (09:00)
[2018-07-12] MEDS ORDERED: CALCITRIOL G TUBE SCH (10:07)
[2018-07-12] MEDS ORDERED: ORALSYR G TUBE SCH (10:07)
[2018-07-12] MEDS ORDERED: EPOETIN ALFA-EPBX * 10,000 UNIT/ML VIAL IV ONE (10:30)
--- NOTE | 2018-07-12 11:09 | PN ---
Progress Note - Progress Note Date of Service: 07/12/18 Note: Progress Note -- Critical Care 24 hour events/significant events: -remains intubated 100% peep 8 -still not awoken yet -remains on levophed, prashant and vasopressin -HD started this morning -ordered for plt this morning now -generalized anasarca+ -afebrile Tele: NSR Vitals: Vital Signs Temp 96.5 F 07/12/18 07:44 Pulse 75 07/12/18 10:45 Resp 23 07/12/18 11:00 BP 99/59 07/12/18 06:00 Pulse Ox 100 07/12/18 10:45 Intake & Output 07/11/18 07/12/18 07/12/18 18:59 06:59 18:59 Intake Total 2367.8 1655 Output Total 79 335 Balance 2288.8 1320 Weight 109.171 kg Intake: IV Fluids 221 195 ABX 27 Magnesium Sulfate 29 NS (0.9%) 119 195 Potassium Chloride 22 albumin 24 IVPB 425 5 ABX 65 Magnesium Sulfate 110 Potassium Chloride 106 5 albumin 144 Medicated IV 556.8 1085 CC - Norepinephrine/ 499 825 Levophed Neosynephrine 179 Vasopressin 57.8 81 Tube Feeding 264 230 Tube Feeding Flush Amount 400 140 Whole Blood 262 Platelets 239 Output: Chest Tube #1 70 180 Rose 9 5 Suctioning 150 Other: Date of Last Bowel 07/12/18 Movement # Bowel Movements 2 Estimated Stool Amount Large O2/Vent: AC 14/500/+8/100% Infusions: levophed 20, vasopressin 0.04, prashant 120 Medications: Atorvastatin Calcium (Lipitor*) 40 mg PO DAILY [facility] Last Admin: 07/12/18 08:21 Dose: 40 mg Calcitriol (Calcitriol Soln 1 Mcg/Ml Oralsyr) 0.25 mcg G TUBE BID [facility] Chlorhexidine Gluconate (Peridex Mouth Wash 0.12%*) 15 ml TOPICAL Q4H [facility] Last Admin: 07/12/18 05:20 Dose: 15 ml Citric Acid/Sodium Citrate (Bicitra*) 30 ml PO TID [facility] Last Admin: 07/12/18 08:20 Dose: 30 ml Dextrose (D50w Syringe 50 Ml*) 12.5 gm IV PUSH .FOR FS < 60 - SS PRN PRN Reason: FS < 60 Famotidine (Pepcid Iv*) 20 mg IV SLOW PU DAILY [facility] Last Admin: 07/12/18 08:21 Dose: 20 mg Fentanyl Citrate (Fentanyl*) 25 mcg IV SLOW PU Q4H PRN PRN Reason: PAIN Hydrocortisone Sodium Succinate (Solu-Cortef*) 100 mg IV Q8H [facility] Last Admin: 07/12/18 08:26 Dose: 100 mg Midazolam HCl 100 mg/ Sodium (Chloride) 100 mls @ 1 mls/hr IV Q24HR [facility]; Protocol Last Admin: 07/12/18 08:38 Dose: Not Given Phenylephrine HCl 50 mg/ (Sodium Chloride) 250 mls @ 60 mls/hr IV Q4H [facility]; Protocol Last Admin: 07/12/18 10:05 Dose: Not Given Ceftriaxone Sodium 1 gm/ (Sodium Chloride) 50 mls @ 200 mls/hr IVPB Q24H [facility] Stop: 07/15/18 08:59 Last Admin: 07/12/18 08:26 Dose: 200 mls/hr Norepinephrine Bitartrate (Levophed 16 Mcg/Ml Premix Bag*) 4,000 mcg in 250 mls @ 75 mls/hr IV .SEE PROTOCOL [facility]; Protocol Last Admin: 07/12/18 07:43 Dose: 75 mls/hr Vasopressin 100 units/ (Dextrose) 250 mls @ 6 mls/hr IVPB Q24H [facility]; Protocol Last Admin: 07/12/18 08:47 Dose: 6 mls/hr Insulin Human Lispro (Humalog*) 0 units SUBCUT Q4H [facility]; Protocol Last Admin: 07/12/18 08:20 Dose: 6 units Sodium Biphosphate/Sodium Phosphate (Fleet Enema*) 1 bottle SC DAILY PRN PRN Reason: CONSTIPATION Last Admin: 07/06/18 15:00 Dose: 1 bottle Tamsulosin HCl (Flomax Cap*) 0.4 mg PO DAILY [facility] Last Admin: 07/12/18 08:21 Dose: 0.4 mg Physical Exam: Constitutional: intubated, not sedated, not responsive, no distress, no diaphoresis Head: normocephalic, atraumatic Eyes: no pallor, no icterus ENT: moist mucous membranes Neck: soft, supple, no jvd CVS: normal rate, regular, no murmur Resp: bilateral air entry, scattered rhales+, no wheeze, no rhonchi, no acc muscle use; Bilateral chest tubes+ Abdomen/GI: soft, nondistended, BS+ Ext/Msk: warm, pulses+, GROSS ANASARCA+ Skin: intact, warm Neuro: not responsive; pupils pinpoint, cough+ , gag+ Labs: Laboratory Results - last 24 hr 07/11/18 07/11/18 07/11/18 11:34 11:35 14:48 WBC 3.1 L RBC 2.56 L Hgb 7.3 L Hct 22 L MCV 84 MCH 29 MCHC 34 RDW 21 H Plt Count 14 L* D MPV 8.1 Neut % (Auto) Not Reportable Lymph % (Auto) Not Reportable [place] % (Auto) Not Reportable Eos % (Auto) Not Reportable Baso % (Auto) Not Reportable Absolute Neuts (auto) 2.9 Absolute Lymphs (auto) 0.1 L Absolute Monos (auto) 0 Absolute Eos (auto) 0 Absolute Basos (auto) 0 Absolute Nucleated RBC Not Reportable Immature Gran % 7 Neutrophils % 88 Band Neutrophils % 5 Lymphocytes % 3 Monocytes % 2 Metamyelocytes % 2 Nucleated RBC % Not Reportable Abs Neuts (Manual) 2.94 Abs Lymphs (Manual) 0.093 L Abs Monocytes (Manual) 0.062 Normal RBC Morphology Not Reportable [place] Cells 1+ Acanthocytes (Spur) 1+ INR (Anticoag Therapy) APTT Patient Temperature ABG pH ABG pH (Temp Correct) ABG pCO2 ABG pCO2 (Temp Corrct ABG pO2 ABG pO2 (Temp Correct ABG HCO3 ABG O2 Saturation ABG Base Excess Respiration Rate O2 Delivery Device Ventilator Type Vent Mode FiO2 Inspiratory Time PEEP Pressure Support Pressure Control EPAP IPAP BiPAP Sodium Potassium Chloride Carbon Dioxide Anion Gap BUN Creatinine Est GFR ( Amer) Est GFR (Non-Af Amer) BUN/Creatinine Ratio Glucose POC Glucose (mg/dL) 190 H Calcium Ionized Calcium Phosphorus Magnesium Total Bilirubin AST ALT Alkaline Phosphatase Ammonia 38 Total Protein Albumin Globulin Albumin/Globulin Ratio 07/11/18 07/11/18 07/11/18 14:48 16:36 20:07 WBC RBC Hgb Hct MCV MCH MCHC RDW Plt Count MPV Neut % (Auto) Lymph % (Auto) [place] % (Auto) Eos % (Auto) Baso % (Auto) Absolute Neuts (auto) Absolute Lymphs (auto) Absolute Monos (auto) Absolute Eos (auto) Absolute Basos (auto) Absolute Nucleated RBC Immature Gran % Neutrophils % Band Neutrophils % Lymphocytes % Monocytes % Metamyelocytes % Nucleated RBC % Abs Neuts (Manual) Abs Lymphs (Manual) Abs Monocytes (Manual) Normal RBC Morphology [place] Cells Acanthocytes (Spur) INR (Anticoag Therapy) APTT Patient Temperature Not Reportable ABG pH 7.31 L ABG pH (Temp Correct) Not Reportable ABG pCO2 35 ABG pCO2 (Temp Corrct Not Reportable ABG pO2 194 H ABG pO2 (Temp Correct Not Reportable ABG HCO3 18.9 L ABG O2 Saturation 99.8 H ABG Base Excess -7.8 L Respiration Rate 24 O2 Delivery Device mechanical ventilator Ventilator Type 500 Vent Mode Apv/cmv FiO2 100 Inspiratory Time Not Reportable PEEP 8 Pressure Support Not Reportable Pressure Control Not Reportable EPAP Not Reportable IPAP Not Reportable BiPAP Not Reportable Sodium Potassium Chloride Carbon Dioxide Anion Gap BUN Creatinine Est GFR ( Amer) Est GFR (Non-Af Amer) BUN/Creatinine Ratio Glucose POC Glucose (mg/dL) 183 H 174 H Calcium Ionized Calcium Phosphorus Magnesium Total Bilirubin AST ALT Alkaline Phosphatase Ammonia Total Protein Albumin Globulin Albumin/Globulin Ratio 07/11/18 07/12/18 07/12/18 23:39 03:46 05:25 WBC RBC Hgb Hct MCV MCH MCHC RDW Plt Count MPV Neut % (Auto) Lymph % (Auto) [place] % (Auto) Eos % (Auto) Baso % (Auto) Absolute Neuts (auto) Absolute Lymphs (auto) Absolute Monos (auto) Absolute Eos (auto) Absolute Basos (auto) Absolute Nucleated RBC Immature Gran % Neutrophils % Band Neutrophils % Lymphocytes % Monocytes % Metamyelocytes % Nucleated RBC % Abs Neuts (Manual) Abs Lymphs (Manual) Abs Monocytes (Manual) Normal RBC Morphology [place] Cells Acanthocytes (Spur) INR (Anticoag Therapy) 1.24 H APTT 50.4 H Patient Temperature ABG pH ABG pH (Temp Correct) ABG pCO2 ABG pCO2 (Temp Corrct ABG pO2 ABG pO2 (Temp Correct ABG HCO3 ABG O2 Saturation ABG Base Excess Respiration Rate O2 Delivery Device Ventilator Type Vent Mode FiO2 Inspiratory Time PEEP Pressure Support Pressure Control EPAP IPAP BiPAP Sodium Potassium Chloride Carbon Dioxide Anion Gap BUN Creatinine Est GFR ( Amer) Est GFR (Non-Af Amer) BUN/Creatinine Ratio Glucose POC Glucose (mg/dL) 165 H 167 H Calcium Ionized Calcium Phosphorus Magnesium Total Bilirubin AST ALT Alkaline Phosphatase Ammonia Total Protein Albumin Globulin Albumin/Globulin Ratio 07/12/18 07/12/18 07/12/18 05:25 05:25 05:25 WBC 3.6 RBC 2.95 L Hgb 8.3 L Hct 25 L MCV 84 MCH 28 MCHC 33 RDW 21 H Plt Count 5 L* D MPV 10.0 Neut % (Auto) Lymph % (Auto) [place] % (Auto) Eos % (Auto) Baso % (Auto) Absolute Neuts (auto) Absolute Lymphs (auto) Absolute Monos (auto) Absolute Eos (auto) Absolute Basos (auto) Absolute Nucleated RBC Immature Gran % Neutrophils % Band Neutrophils % Lymphocytes % Monocytes % Metamyelocytes % Nucleated RBC % Abs Neuts (Manual) Abs Lymphs (Manual) Abs Monocytes (Manual) Normal RBC Morphology [place] Cells Acanthocytes (Spur) INR (Anticoag Therapy) APTT Patient Temperature ABG pH ABG pH (Temp Correct) ABG pCO2 ABG pCO2 (Temp Corrct ABG pO2 ABG pO2 (Temp Correct ABG HCO3 ABG O2 Saturation ABG Base Excess Respiration Rate O2 Delivery Device Ventilator Type Vent Mode FiO2 Inspiratory Time PEEP Pressure Support Pressure Control EPAP IPAP BiPAP Sodium 144 Potassium 3.6 Chloride 108 Carbon Dioxide 22 Anion Gap 14 H BUN 80 H Creatinine 3.10 H Est GFR ( Amer) 24.0 Est GFR (Non-Af Amer) 19.8 BUN/Creatinine Ratio 25.8 H Glucose 145 H POC Glucose (mg/dL) Calcium 6.8 L Ionized Calcium 0.89 L Phosphorus 5.0 Magnesium 1.9 Total Bilirubin 2.20 H AST 36 ALT 11 Alkaline Phosphatase 97 Ammonia Total Protein 4.2 L Albumin 3.0 L Globulin 1.2 L Albumin/Globulin Ratio 2.5 07/12/18 07:53 WBC RBC Hgb Hct MCV MCH MCHC RDW Plt Count MPV Neut % (Auto) Lymph % (Auto) [place] % (Auto) Eos % (Auto) Baso % (Auto) Absolute Neuts (auto) Absolute Lymphs (auto) Absolute Monos (auto) Absolute Eos (auto) Absolute Basos (auto) Absolute Nucleated RBC Immature Gran % Neutrophils % Band Neutrophils % Lymphocytes % Monocytes % Metamyelocytes % Nucleated RBC % Abs Neuts (Manual) Abs Lymphs (Manual) Abs Monocytes (Manual) Normal RBC Morphology [place] Cells Acanthocytes (Spur) INR (Anticoag Therapy) APTT Patient Temperature ABG pH ABG pH (Temp Correct) ABG pCO2 ABG pCO2 (Temp Corrct ABG pO2 ABG pO2 (Temp Correct ABG HCO3 ABG O2 Saturation ABG Base Excess Respiration Rate O2 Delivery Device Ventilator Type Vent Mode FiO2 Inspiratory Time PEEP Pressure Support Pressure Control EPAP IPAP BiPAP Sodium Potassium Chloride Carbon Dioxide Anion Gap BUN Creatinine Est GFR ( Amer) Est GFR (Non-Af Amer) BUN/Creatinine Ratio Glucose POC Glucose (mg/dL) 234 H Calcium Ionized Calcium Phosphorus Magnesium Total Bilirubin AST ALT Alkaline Phosphatase Ammonia Total Protein Albumin Globulin Albumin/Globulin Ratio Imaging: cxr 07/09 - small bilateral infiltrates/effusions tte 07/07 - normal Lv function, LA mod dilated, trace AI, modeate PI, estimated PASP 37 CT brain 07/10 - no acute intracranial abnormality CT abd/pelvis 07/07 - large bilateral effusions with compressive atelectasis, pelvis left kidney, no RP hematoma, diffuse edema, small ascites cxr 07/11 - ett above lizbet; bilateral congestion appears better on right now, mild on left still persistent cxr 07/12 - ett above lizbet; increased pulm congestion; CTs in place bilaterally Assessment: 56y M w/pmhx of DM, Anxiety, 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 He comes in 07/01 for weakness, SOB, malaise. Patient was admitted for workup on 07/01. Started Tx for Enterococcus UTI+. Progressive weakness, suspected to be more bulbar, leading to respiratory distress and need for NIV on 07/06. Progressive Resp failure and encephalopathy, intubated 07/07, Oliguric CHACORTA requiring new HD 07/07. 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 07/08 bilateral chest tubes for large effusions placed. -Weakness, multifactorial steroids +/- infectious -Acute respiratory failure, intubated 07/07 -CHACORTA on CKD/FSGS, now on HD 07/07 -metabolic acidosisis -Nephrotic Syndrome/Hypoproteinemia with anasarca/volume overload -Shock, unspecified, suspect septic -Citrobacter and Bramhanella Pneumonia/Bronchitis -Anemia -Thrombocytopenia -Bilateral pleural effusions; s/p CTs B/L 07/08 -Encephalopathy, metabolic -?? Cholecystitis; needs HIDA Plan: Neuro- has not woken despite being off sedatives. Last CT brain without acute pathology. has been on steroids with hydrocortisone now. no sedatives for >48 hours it seems. Brainstem reflexes are present though. -plan for EEG and MRI brain today if able -HD ongoing , may show some improvemetn if residual sedatioin still lingering -hold off any sedatives. cont neurochecks. -suspect metabolic encephalopathy component -neuro eval appreciated CVS- -shock, suspect septic component ? cardiogenic ? -on levophed, vasopressin, prashant -stress steroids hydrocortisone 100mg q8h -off IVF/albumin -HD today; last HD 07/09 -last hg 7-8s; no clear bleeding noted -plt transfusion today -IV abx Resp- intubated, on 100% fio2, peep 8; breathing at or above ventilator rate -no secretions -CT in place; left draining more than Right and serous fluid -possible right CT removal -CXR 07/12 with pulm edema++ -HD today with goal 4-5L removal -no active wheezing noted -sputum growth with citrobacter and branhamella; on IV abx -cont pulm toilet, vap bundle ID- afebrile. wbc 3-4 -CXR with bialteral congestion -Sputum culture with citrobacter and branhamella; sensitivities reviewed -Cont CTX 1gm IV daily (day#6) GI- -OGT - nepro TF 40cc/hr -GI proph; h2b Renal- -progressive FSGS; large amounts of proteinuria+ noted on 07/06 24 hr urine sample. -has been getting albumin 25% q6h to help maintain intravascular state -oliguric state -HD today; goal 4 L removal -albumin 25% 25gm x1 now -given ongoing anasarca; discussed with nephrology that CVVH may be a good option at this time to further progress volume removal, given also no HD at this facility tomorrow -will discuss with family for transfer to [place] if able today -maintian hemodyn with pressors for now -off immunesuppressive therapy Heme- -anemia, hg 8.3 today -plt 5; transfuse 1 plt today -suspect this drop in plt and anemia 2/2 to BM effects of Cellcept and some PCN effect? underlying sepsis now? -TTP w/u negative, no GI bleeding noted -remains off immunesuppressants now; on betalactams as Abx still Endo-Maintain BG<200, insulin protocol as needed Musculsk- pressure ulcer prophylaxis. Bedrest. Wounds- none Nutrition- nepro TF DVT prophylaxis: no chemical 2/2 to thrombocytopenia; SCDs GI prophylaxis: h2b daily Central Line: Right fem TLC; RIJ HD Arterial Line: no Rose Cathetor: yes Disposition: Patient requires Critical Care/ICU for respiratory failure, shock , CHACORTA, anasarca Patient clinical status: unstable, critical plan to discuss with family about transfer to [facility] for [facility] Code Status: DNR Total Critical Care time is 50 minutes, excluding procedures/teaching Jorge Ortiz MD Refrigeration System Installer (Electronically Signed)
[2018-07-12] MEDS ORDERED: Albumin Human 25%* 25 GM/100 ML BTL IV ONE (11:16)
[2018-07-12] MEDS ORDERED: Albumin Human 5%* 12.5 GM/250 ML BTL IV ONE ×2 (11:47→11:56)
--- NOTE | 2018-07-12 12:37 | PN ---
NEUROLOGICAL PROGRESS NOTE: DATE OF SERVICE: 07/12/18. PATIENT OF: Dr. Ortiz. HISTORY: Mr. Harden continues to be comatose and intubated. I spoke to the dialysis nurse, who followed him last week as well and she notes that he is moving a little bit more today. CURRENT MEDICATIONS: Include: 1. Lipitor. 2. Ceftriaxone. 3. Bicitra. 4. Pepcid. 5. Fentanyl p.r.n. 6. Hydrocortisone 100 q.8 hours. 7. Midazolam not given. 8. Levophed. 9. Flomax 0.4 daily. 10. Vasopressin. PHYSICAL EXAM: Temperature 96.5, pulse 75, respirations 29, blood pressure 107/ 69. He remains comatose, but he is moving both sides in his legs spontaneously, so he appears little bit less obtunded dialysis has just started. He remains edematous. There are positive rales. He had regular rate and rhythm. LABORATORY DATA: Today include a white count of 3.6, hematocrit 25, platelets 5000 total. Ammonia was 38. Acetylcholine receptor muscle binding antibody was negative. Hepatitis antibodies and antigen were nonreactive. Parvovirus negative. CMV undetected. MALCOLM was negative. ASSESSMENT AND PLAN: Jl remains encephalopathic. We will see how he does after dialysis. We will be checking EEG to see if there are further clues on his EEG this week. His platelets remain quite low and he remains critically ill. He has not had an MRI scan. If he is clinically stable and when tolerated , an MRI scan would be reasonable to obtain as well and I will speak to Dr. Ortiz. Thank you for sharing his case. [id number]/[facility] #: [id number] [facility] MEDICAL CENTERKalpesh
[2018-07-12] MEDS ORDERED: Amiodarone 150 MG IVPREMIX* 150 MG/100 ML BAG IV ONE ×3 (16:01→16:06)
--- NOTE | 2018-07-12 16:01 | PN ---
Progress Note - Progress Note Date of Service: 07/12/18 Note: Bacame tachycardic and more hypotensive during HD. Taken off 2.4 Karen 1st 1-2 hours, then hemodynamics changes tachycardic, appeared sinus increased pressors, back on levo, vaso, prashant high dose. givign 1 plt transfusion ABG repeated, PO2 200s; on fio2 100% peep 10 abg to decrease fio2 while maintaining recruitement at this time he probably has underlying worsening pulmonary edema which is contributing to this hypoxia. EKG now down to further eval the tachycardia which has not improved, despite some albumin 25% and albumin 5% infusion. EKG - no clear pwaves, reading atrial flutter; it does show irregularity; would likely say atrial arrythmia with tachycardia causing instability. Will order for amiodarone 150mg IV loading dose for now and re-eval status after. Jorge Ortiz MD Manager Drilling
[2018-07-12] MEDS ORDERED: EPINEPHrine SYR 0.1MG/ML* 1 MG in D5W 250 ML BAG* 240 ML IV SCH (17:00)
[2018-07-12 17:31] LABS: Mean Platelet Volume 6.6 fL (7.4-10.4); Platelet Count 20 10^3/uL (150-450)
--- NOTE | 2018-07-12 17:43 | PN ---
Progress Note - Progress Note Date of Service: 07/12/18 SOAP: Subjective: []Follow up consultation 07/07/18. 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 Rx steroids for nephrotic syndrome, c/b steroid myopathy. Started on Mycophenolate and then cellcept. Presentation on 07/01 with progressive weakness and falls. Progressive SOB, mental status changes and now in ICU on ventilator. Rx Ampicillin for UTI then Ceftriaxone. Progressive and marked anemia and thrombocytopenia. Platelets were on admission then 42 on 07/07, decreased to 7 on 07/11/18, then 5 today. WBC elevated on admission and consistent decrease to 3.6 today, 3.1 on 07/11 with ANC of 2900. Hgb 11.8 on admission to 6.7 on 07/07/18. Tx 2 U PRBC on 07/07, 1 U PRBC 07/10, 1 U PRBC 07/11. Hgb 8.3 today. Has been off myelospressive medication since 07/01/18 (10 days). Today stable on ventilator. Hematologic evaluation negative for clear cause other than medication. Ferritin and B12 elevated, SPEP and SFLC reactive, LDH 309, Haptoglobin elevated. Atorvastatin Calcium (Lipitor*) 40 mg PO DAILY [facility] Last Admin: 07/12/18 08:21 Dose: 40 mg Calcitriol (Calcitriol Soln 1 Mcg/Ml Oralsyr) 0.25 mcg G TUBE BID [facility] Last Admin: 07/12/18 11:14 Dose: 0.25 mcg Chlorhexidine Gluconate (Peridex Mouth Wash 0.12%*) 15 ml TOPICAL Q4H [facility] Last Admin: 07/12/18 14:03 Dose: 15 ml Citric Acid/Sodium Citrate (Bicitra*) 30 ml PO TID [facility] Last Admin: 07/12/18 14:03 Dose: 30 ml Dextrose (D50w Syringe 50 Ml*) 12.5 gm IV PUSH .FOR FS < 60 - SS PRN PRN Reason: FS < 60 Famotidine (Pepcid Iv*) 20 mg IV SLOW PU DAILY [facility] Last Admin: 07/12/18 08:21 Dose: 20 mg Fentanyl Citrate (Fentanyl*) 25 mcg IV SLOW PU Q4H PRN PRN Reason: PAIN Hydrocortisone Sodium Succinate (Solu-Cortef*) 100 mg IV Q8H [facility] Last Admin: 07/12/18 08:26 Dose: 100 mg Phenylephrine HCl 50 mg/ (Sodium Chloride) 250 mls @ 60 mls/hr IV Q4H [facility]; Protocol Last Admin: 07/12/18 14:31 Dose: 60 mls/hr Ceftriaxone Sodium 1 gm/ (Sodium Chloride) 50 mls @ 200 mls/hr IVPB Q24H [facility] Stop: 07/15/18 08:59 Last Admin: 07/12/18 08:26 Dose: 200 mls/hr Norepinephrine Bitartrate (Levophed 16 Mcg/Ml Premix Bag*) 4,000 mcg in 250 mls @ 75 mls/hr IV .SEE PROTOCOL [facility]; Protocol Last Admin: 07/12/18 15:16 Dose: 113 mls/hr Vasopressin 100 units/ (Dextrose) 250 mls @ 9 mls/hr IVPB Q24H [facility]; Protocol Last Admin: 07/12/18 12:26 Dose: Not Given Epinephrine HCl 1 mg/ Dextrose 250 mls @ 30 mls/hr IV Q8H [facility]; Protocol Last Admin: 07/12/18 17:25 Dose: 30 mls/hr Insulin Human Lispro (Humalog*) 0 units SUBCUT Q4H [facility]; Protocol Last Admin: 07/12/18 16:41 Dose: 6 units Sodium Biphosphate/Sodium Phosphate (Fleet Enema*) 1 bottle LA DAILY PRN PRN Reason: CONSTIPATION Last Admin: 07/06/18 15:00 Dose: 1 bottle Tamsulosin HCl (Flomax Cap*) 0.4 mg PO DAILY [facility] Last Admin: 07/12/18 08:21 Dose: 0.4 mg Objective: [] Vital Signs Temp Pulse Resp BP Pulse Ox 96.6 F 141 30 99/59 99 07/12/18 15:40 07/12/18 17:15 07/12/18 17:00 07/12/18 06:00 07/12/18 17:15 HEENT vent and ET tube, some OM blood skin ecchymosis chest and shoulders, some petechia. CTA on vent hyperdyanic CO Abd tense, no HSM Ext edema, warm. Neuro sedated. Blood film: schystocytes +1, jose cells, WBC normal maturation w/ inflammation, plts are few and large Assessment: []72 year old admitted with progressive weakness, MS changes and respiratory failure. Has progressive pancytopenia with marked thrombocytopenia. He is 10 days off myelsupressive medication and that remains most likely cause of pancytopenia. I am concerned about a secondary process causing additional thrombocytopenia. The anemia dose not appear consumptive and he responded to PRBC appropriately. He did not respond to platelet transfusion, combined with blood film indicate overlying consumptive process. Ddx includes post transfusion pupura, ITP, he may be developing DIC. Plan: []1. Check Retic count and re-check LDH 2. Consider IVIG 500 mg/kg daily x 4 days if risk to renal function not to great. 3. Can give GCSF for further drop in WBC 4. Consider bone marrow biopsy but would give more time and trial of IVIG first. time with patient and chart 40 min.
--- NOTE | 2018-07-12 19:17 | DS ---
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 He comes in 07/01 for weakness, SOB, malaise. Patient was admitted for workup on 07/01. Started Tx for Enterococcus UTI+. Progressive weakness, suspected to be more bulbar, leading to respiratory distress and need for NIV on 07/06. Progressive Resp failure and encephalopathy, intubated 07/07, Oliguric CHACORTA requiring new HD 07/07. 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 07/08 bilateral chest tubes for large effusions placed. He remained on pressors, responded to 2 sessions of HD with volume removal. Over the weekend he had some improvement in pressor . Sputum cultures returned with growth of Citrobacter and Brahmanella+, no clear focal consolidation but suspected pneumonia vs bronchitis, without further blood culture growth or pleural fluid growth. He required daily platelet transfusions for platelets <10, but without any noted bleeding. He remained off any immunosupressants but we continued hydrocortisone stress dose given recent 1-2 months of daily prednisone and possibility of adrenal insuff after rapid withdrawal whiel in shock state. Despite all this he has not awoken, noted to have versed infusion discontinued on 07/09 daytime and since then has not had further sedation. HD was attempted 07/12 but after 2+ liter of removal he developed hemodyn instability, tachycardia, requiring more pressors but dialysis was completed. He has not woken completely. An EEG was obtained demonstrated slow diffuse brain waves, without focal process indicative of seizures. Given his overall status, we felt that he requires further volume removal but developed hemodyn instability and so would benefit highly from CVVHD as an option. We discussed this this family at this time and we agreed to transfer patient, for which he was accepted at [facility]. A Hematology followup was done this evening and noted that a possible autoimmune process may be underlying, so further workup we be sent along to [facility] for followup. I have discussed the current day and process of transfer with Dr Em who will contact [facility] to discuss his findings and progress in management of this patients underlying renal state. At this time he is being transferred to [facility] ICU under Dr Connolly. Procedures/Imaging: see chart Laboratory/Data: see chart Discharge Medications: see chart Diet: Nepro TF Activity: bedrest Condition upon discharge: unstable, critical Disposition: Transferred to [facility] Code Status: DNR Recommendations: - Follow-up: - Total Discharge time 42 minutes Jorge Ortiz MD Restrike Hammer Operator (Electronically Signed)
--- NOTE | 2018-07-13 00:23 | EEG ---
ELECTROENCEPHALOGRAPHY: DATE OF STUDY: 07/12/18 - ROOM #ICU-04 DATE OF DICTATION: 07/12/18 PATIENT OF: Dr. Ortiz. CLINICAL PROBLEM: This is a 72-year-old man being evaluated for encephalopathy with significant coma at this point with confusion and agitation when he first presented on 07/01/18 to the ICU. He also had significant weakness and has severe nephrotic syndrome. He has been off of his Versed since 07/10/18. MEDICATIONS: 1. Albumin. 2. Humalog. 3. Phenylephrine. 4. Hydrocortisone. 5. Vasopressin. 6. Atorvastatin. 7. Pepcid. 8. Tamsulosin. 9. Ventolin. 10. Levophed. 11. Epoetin. REPORT: Background cerebral activity consisted of mixed delta and theta activity with a diffuse field, with some admixed beta range frequencies. No epileptiform potentials or major asymmetries of background were noted. CLINICAL IMPRESSION: This EEG with the patient intubated is consistent with markedly severe encephalopathy because of the diffuse slowing of background. This is not a specific finding and medications the patient has recently consumed may be contributing to some of this slowing. This EEG was discussed with Dr. Ortiz. [id number] #: [id number] [facility]
== END 2018-07-12 18:45 | disposition short-term general hospital (02) | DRG 682 ==
LOC: ED 16:21 → MEDTELE 21:48 → MED 07-05 05:00 → ICU 07-06 09:18
PROVIDERS: ADMIT Internal Medicine; ATTEND Specialist
PROC: 0BH18EZ Insertion of Endotracheal Airway into Trachea, Via Natural or Artificial Opening Endoscopic (ICD-10-PCS; principal; 2018-07-07)
PROC: 02HV33Z Insertion of Infusion Device into Superior Vena Cava, Percutaneous Approach (ICD-10-PCS; 2018-07-07)
PROC: 5A1D70Z Performance of Urinary Filtration, Intermittent, Less than 6 Hours Per Day (ICD-10-PCS; 2018-07-07)
PROC: 5A09357 Assistance with Respiratory Ventilation, Less than 24 Consecutive Hours, Continuous Positive Airway Pressure (ICD-10-PCS; 2018-07-07)
PROC: 0W9B30Z Drainage of Left Pleural Cavity with Drainage Device, Percutaneous Approach (ICD-10-PCS; 2018-07-08)
PROC: 0W9930Z Drainage of Right Pleural Cavity with Drainage Device, Percutaneous Approach (ICD-10-PCS; 2018-07-08)
PROC: 30233N1 Transfusion of Nonautologous Red Blood Cells into Peripheral Vein, Percutaneous Approach (ICD-10-PCS; 2018-07-11)
PROC: 30233R1 Transfusion of Nonautologous Platelets into Peripheral Vein, Percutaneous Approach (ICD-10-PCS; 2018-07-12)
PROC: 4A00X4Z Measurement of Central Nervous Electrical Activity, External Approach (ICD-10-PCS; 2018-07-12)
PROC: 5A1955Z Respiratory Ventilation, Greater than 96 Consecutive Hours (ICD-10-PCS; 2018-07-12)
DX: N17.9 Acute kidney failure, unspecified (principal); J96.01 Acute respiratory failure with hypoxia; J15.8 Pneumonia due to other specified bacteria; G93.41 Metabolic encephalopathy; G82.50 Quadriplegia, unspecified; N39.0 Urinary tract infection, site not specified; R57.9 Shock, unspecified; J90 Pleural effusion, not elsewhere classified; G72.0 Drug-induced myopathy; I82.3 Embolism and thrombosis of renal vein; E87.2 Acidosis; D68.9 Coagulation defect, unspecified; G93.1 Anoxic brain damage, not elsewhere classified; D61.818 Other pancytopenia; I12.9 Hypertensive chronic kidney disease with stage 1 through stage 4 chronic kidney disease, or unspecified chronic kidney disease; N18.4 Chronic kidney disease, stage 4 (severe); E78.5 Hyperlipidemia, unspecified; E87.70 Fluid overload, unspecified; E11.22 Type 2 diabetes mellitus with diabetic chronic kidney disease; F41.9 Anxiety disorder, unspecified; S00.31XA Abrasion of nose, initial encounter; E78.00 Pure hypercholesterolemia, unspecified; B95.2 Enterococcus as the cause of diseases classified elsewhere; T38.0X5A Adverse effect of glucocorticoids and synthetic analogues, initial encounter; J40 Bronchitis, not specified as acute or chronic; R56.9 Unspecified convulsions; T45.1X5A Adverse effect of antineoplastic and immunosuppressive drugs, initial encounter; E11.649 Type 2 diabetes mellitus with hypoglycemia without coma; I95.9 Hypotension, unspecified; N26.9 Renal sclerosis, unspecified; N40.0 Benign prostatic hyperplasia without lower urinary tract symptoms; R79.89 Other specified abnormal findings of blood chemistry; E77.8 Other disorders of glycoprotein metabolism; W01.0XXA Fall on same level from slipping, tripping and stumbling without subsequent striking against object, initial encounter; D69.59 Other secondary thrombocytopenia; H02.402 Unspecified ptosis of left eyelid; K59.09 Other constipation; Z66 Do not resuscitate; Z87.440 Personal history of urinary (tract) infections; Y92.9 Unspecified place or not applicable; Z85.828 Personal history of other malignant neoplasm of skin; Z82.49 Family history of ischemic heart disease and other diseases of the circulatory system; Z84.89 Family history of other specified conditions
CPT/HCPCS: 36415; 36600; 70450; 70486; 71045; 71250; 72125; 74176; 76705; 80048; 80053; 80076; 80202; 81003; 81015; 82040; 82043; 82085; 82140; 82272; 82330; 82436; 82550; 82570; 82595; 82607; 82803; 82947; 83010; 83516; 83519; 83520; 83605; 83615; 83735; 83874; 83880; 83883; 84100; 84133; 84155; 84156; 84165; 84300; 84443; 84484; 85014; 85018; 85025; 85027; 85049; 85060; 85610; 85730; 86038; 86663; 86703; 86706; 86747; 86803; 86850; 86900; 86901; 86922; 87040; 87070; 87077; 87086; 87185; 87186; 87205; 87340; 87497; 90935; 93005; 93306; 94002; 94003; 94660; 95822; 99223; 99233; 99285; A9270-GY; G0257; G8978-GP-CI; G8979-GP-CH; J0171; J0282; J0610; J0696; J1630; J1720; J1815; J1940; J2060; J2250; J2920; J3370; J3475; J3480; J7512; P9035; P9040; P9045; P9047; Q5106